=== PATIENT | female | born 1980 | race Caucasian/White ===

== ENCOUNTER 2016-07-29 14:30 | Emergency (ER) | payer MEDICAID, OTHER ==
[2016-07-29] MEDS ORDERED: HYDROmorphone 1 MG/ML SYRINGE IM STA (16:24)
[2016-07-29] MEDS ORDERED: FLUCONAZOLE 100 MG TABLET PO STA (16:25)
[2016-07-29] MEDS ORDERED: KETOROLAC 30 MG/ML VIAL IM STA (16:25)
[2016-07-29] MEDS ORDERED: INSULIN REGULAR HUMAN 100 UNIT/1 ML 10 ML MDV SUBQ STA (16:25)
[2016-07-29] MEDS ORDERED: HYDROmorphone 1 MG/ML SYRINGE ONE (16:30)
[2016-07-29] MEDS ORDERED: KETOROLAC 30 MG/ML VIAL ONE (16:30)
[2016-07-29] MEDS ORDERED: INSULIN REGULAR HUMAN 100 UNIT/1 ML 10 ML MDV ONE (16:31)
[2016-07-29] MEDS ORDERED: FLUCONAZOLE 100 MG TABLET PO ONE (16:31)
== END 2016-07-29 17:46 | disposition home or self-care (01) ==
DX: B37.3 Candidiasis of vulva and vagina (principal); E10.65 Type 1 diabetes mellitus with hyperglycemia; Z79.4 Long term (current) use of insulin; M54.5 Low back pain; I10 Essential (primary) hypertension; E03.9 Hypothyroidism, unspecified
CPT/HCPCS: 36415; 51701; 51798; 80053; 81001; 83690; 85025; 96372; 99283; 99284; A9270; J1815

== ENCOUNTER 2016-08-13 | Outpatient (CLI) | payer MEDICAID | END 2016-08-13 23:15 | disposition critical access hospital (66) | CPT/HCPCS: A0425; A0427 ==

== ENCOUNTER 2016-08-13 12:23 | Emergency (ER) | payer MEDICAID ==
[2016-08-13] MEDS ORDERED: INSULIN REGULAR HUMAN 100 UNIT/1 ML 10 ML MDV IVP STA (13:02)
[2016-08-13] MEDS ORDERED: SODIUM CHLORIDE 0.9% 1,000 ML IV ONE (13:02)
[2016-08-13] MEDS ORDERED: ACETAMINOPHEN 1,000 MG/100 ML 100 ML IV STA (13:02)
[2016-08-13] MEDS ORDERED: ACETAMINOPHEN 1,000 MG/100 ML 100 ML IV ONE (13:10)
[2016-08-13] MEDS ORDERED: INSULIN REGULAR HUMAN 100 UNIT/1 ML 10 ML MDV ONE (13:10)
[2016-08-13] MEDS ORDERED: KETOROLAC 60 MG/2 ML VIAL IVP STA (15:01)
[2016-08-13] MEDS ORDERED: KETOROLAC 30 MG/ML VIAL ONE (15:02)
== END 2016-08-13 15:30 | disposition home or self-care (01) ==
DX: E10.65 Type 1 diabetes mellitus with hyperglycemia (principal); Z79.4 Long term (current) use of insulin; R07.89 Other chest pain; R00.0 Tachycardia, unspecified; I10 Essential (primary) hypertension; E03.9 Hypothyroidism, unspecified; K21.9 Gastro-esophageal reflux disease without esophagitis

== ENCOUNTER 2016-08-13 23:25 | Emergency (ER) | payer MEDICAID ==
[2016-08-14] MEDS ORDERED: HYDROmorphone 1 MG/ML SYRINGE IVP STA (00:20)
[2016-08-14] MEDS ORDERED: ONDANSETRON 4 MG/2 ML VIAL IVP STA (00:20)
[2016-08-14] MEDS ORDERED: SODIUM CHLORIDE 0.9% 1,000 ML IV ONE (00:20)
[2016-08-14] MEDS ORDERED: METOPROLOL 5 MG/5 ML VIAL IVP STA ×2 (00:21→01:28)
[2016-08-14] MEDS ORDERED: INSULIN REGULAR HUMAN 100 UNIT/1 ML 10 ML MDV IVP STA (00:22)
[2016-08-14] MEDS ORDERED: METOPROLOL 5 MG/5 ML VIAL IVP ONE ×2 (00:35→01:31)
[2016-08-14] MEDS ORDERED: ONDANSETRON 4 MG/2 ML VIAL ONE (00:35)
[2016-08-14] MEDS ORDERED: HYDROmorphone 1 MG/ML SYRINGE ONE (00:35)
[2016-08-14] MEDS ORDERED: INSULIN REGULAR HUMAN 100 UNIT/1 ML 10 ML MDV ONE (00:36)
== END 2016-08-14 02:35 | disposition home or self-care (01) ==
DX: I47.1 Supraventricular tachycardia (principal); R07.89 Other chest pain; E10.65 Type 1 diabetes mellitus with hyperglycemia; Z79.4 Long term (current) use of insulin; R06.02 Shortness of breath; I10 Essential (primary) hypertension; E03.9 Hypothyroidism, unspecified; K21.9 Gastro-esophageal reflux disease without esophagitis
CPT/HCPCS: 36415; 71010; 80053; 82009; 82550; 82553; 82803; 83690; 84484; 85025; 85379; 93005; 93010; 96361; 96374; 96375; 99284; 99285; J0131; J1170; J1815

== ENCOUNTER 2016-08-27 18:53 | Emergency (ER) | payer MEDICAID ==
[2016-08-27] MEDS ORDERED: SODIUM CHLORIDE 0.9% 1,000 ML IV ONE ×2 (19:21→21:18)
[2016-08-27] MEDS ORDERED: ONDANSETRON 4 MG/2 ML VIAL IVP STA (19:45)
[2016-08-27] MEDS ORDERED: ACETAMINOPHEN 325 MG TABLET PO STA (19:45)
[2016-08-27] MEDS ORDERED: ACETAMINOPHEN 325 MG TABLET PO ONE (19:51)
[2016-08-27] MEDS ORDERED: ONDANSETRON 4 MG/2 ML VIAL ONE (19:51)
[2016-08-27] MEDS ORDERED: INSULIN REGULAR HUMAN 100 UNIT/1 ML 10 ML MDV IVP STA ×2 (20:25→21:18)
[2016-08-27] MEDS ORDERED: INSULIN REGULAR HUMAN 100 UNIT/1 ML 10 ML MDV ONE ×2 (20:37→21:23)
== END 2016-08-27 22:24 | disposition home or self-care (01) ==
DX: R00.0 Tachycardia, unspecified (principal); Z95.0 Presence of cardiac pacemaker; E10.65 Type 1 diabetes mellitus with hyperglycemia; Z79.4 Long term (current) use of insulin; I10 Essential (primary) hypertension; E03.9 Hypothyroidism, unspecified
CPT/HCPCS: 36415; 71010; 80053; 83690; 83735; 85025; 93005; 93010; 96361; 96374; 99283; 99285; A9270; J1815

== ENCOUNTER 2016-09-03 12:20 | Emergency (ER) | payer MEDICAID ==
[2016-09-03] MEDS ORDERED: ONDANSETRON ODT 4 MG TABLET TL STA (14:49)
[2016-09-03] MEDS ORDERED: HYDROmorphone 1 MG/ML SYRINGE IM STA (14:49)
[2016-09-03] MEDS ORDERED: ONDANSETRON ODT 4 MG TABLET ONE (14:52)
[2016-09-03] MEDS ORDERED: HYDROmorphone 1 MG/ML SYRINGE ONE (14:52)
[2016-09-03] MEDS ORDERED: CEPHALEXIN 250 MG CAPSULE PO STA (16:09)
[2016-09-03] MEDS ORDERED: FLUCONAZOLE 100 MG TABLET PO STA (16:09)
[2016-09-03] MEDS ORDERED: CEPHALEXIN 250 MG CAPSULE PO ONE (16:11)
[2016-09-03] MEDS ORDERED: FLUCONAZOLE 100 MG TABLET ONE (16:12)
[2016-09-03] MEDS ORDERED: MUPIROCIN 2% CREAM 30 GM TUBE TOP STA (16:15)
== END 2016-09-03 16:22 | disposition home or self-care (01) ==
DX: J40 Bronchitis, not specified as acute or chronic (principal); B37.3 Candidiasis of vulva and vagina; E10.65 Type 1 diabetes mellitus with hyperglycemia; Z79.4 Long term (current) use of insulin; I10 Essential (primary) hypertension
CPT/HCPCS: 71020; 81001; 81025; 96372; 99283; 99284; A9270; J1170; Q0162

== ENCOUNTER 2016-09-21 10:00 | Emergency (ER) | payer MEDICAID ==
--- NOTE | 2016-09-21 10:41 | ED Physician Documentation ---
History of Present Illness - Stated complaint Stated Complaint: ELEVATED BS,RT SIDE BACK PX - Chief complaint Chief Complaint: General - History obtained from History obtained from: Patient - History of Present Illness Timing: Yesterday Pain level max: 8 Pain level now: 8 Improved by: nothing Worsened by: movement - Additonal information Additional information: Patient is a 36-year-old female with a history of diabetes and cardiac issues. She does have an implanted pacemaker. States she felt fluttering at her pacemaker site this morning. Did not feel heart palpitations, rather this was a muscular type twitching/fluttering. She is also complained of bilateral calf pain since yesterday, feels like cramping as well. Also states that she has right low back pain. No abdominal pain. No fevers. States that she is approximately 11 days late for her menses. States that she is not , has not been sexually active for the past month. Denies any vaginal bleeding or discharge. Also states that her blood sugars have been high over the past 2 days. Review of Systems Ten Systems: 10 systems reviewed and negative Constitutional: denies: Fever, Chills Ears: denies: Ear pain Nose: denies: Rhinorrhea / runny nose, Congestion Throat: denies: Sore throat Cardiac: denies: Chest pain / pressure Respiratory: denies: Cough, Wheezing GI: denies: Nausea, Vomiting, Diarrhea : reports: Dysuria, Frequency, Hesitancy. 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, Fibroids, Other : None HEENT: None Psych: Depression, Anxiety, Bipolar disorder, Panic attacks, Post traumatic stress disorder, Claustrophobia Musculoskeletal: Gout, Chronic back pain Derm: None - Past Surgical History Past Surgical History: Yes General: Cholecystectomy, Appendectomy, Hiatal hernia repair, Colonoscopy, EGD /SOLAR PANEL INSTALLATION SUPERVISOR: Oophrectomy, Other Cardiovascular: Other HEENT: Myringotomy (tubes), Tonsil/Adenoidectomy, Other - Present Medications Home Medications: Ambulatory Orders Medication Instructions Recorded Confirmed Atorvastatin Calcium [Lipitor] 80 mg PO HS 05/24/13 09/21/16 Insulin Aspart [NovoLOG] 1 - 10 unit SUBQ TIDWM 05/24/13 09/21/16 Insulin Glargine,Hum.rec.anlog 40 unit SQ QAM 05/24/13 09/21/16 [Lantus] Levothyroxine Sodium [Synthroid] 250 mcg PO DAILY 05/24/13 09/21/16 Lorazepam [Ativan] 1 mg PO QPM 08/29/13 09/21/16 Insulin Glargine,Hum.rec.anlog 0 units SUBCUT HS 09/05/13 09/21/16 [Lantus Solostar] Amitriptyline [Elavil] 25 mg PO QPM 07/03/14 09/21/16 Pantoprazole [Protonix] 40 mg PO BIDAC 01/17/15 09/21/16 Venlafaxine ER [Effexor ER] 150 mg PO DAILY 08/27/15 09/21/16 Cyclobenzaprine [Flexeril] 10 mg PO TID PRN #15 tablet 12/01/15 09/21/16 Lisinopril 20 mg PO DAILY 09/03/16 09/21/16 Metoprolol Tartrate 50 mg PO BID 09/03/16 09/21/16 Mupirocin 1 applic TP TID #15 oint...g. 09/03/16 09/21/16 Ondansetron Odt [Zofran] 4 mg TL Q6H PRN #15 tablet 09/03/16 09/21/16 Ciprofloxacin HCl [Cipro] 500 mg PO BID #28 tablet 09/21/16 Hydrocodone/Acetaminophen 1 - 2 each PO Q6H PRN #20 tablet 09/21/16 [Hydrocodon-Acetaminophen 5-325] Ondansetron Odt [Zofran] 4 mg TL Q6H PRN #10 tablet 09/21/16 - Allergies Allergies/Adverse Reactions: Allergies Allergy/AdvReac Type Severity Reaction Status Date / Time sulfamethoxazole Allergy Intermediate rash/ Verified 09/21/16 10:09 [From Bactrim] adhesive Allergy Rash Verified 09/21/16 10:09 amoxicillin [Amoxicillin] Allergy unknown Verified 09/21/16 10:09 oxycodone [Oxycodone] AdvReac Intermediate hallucinate, Verified 09/21/16 10:09 vomit promethazine HCl * AdvReac Mild Nausea Verified 09/21/16 10:09 [From Phenergan] - Social History Does the pt smoke?: No Smoking Status: Never smoker Does the pt drink ETOH?: No Does the pt have substance abuse?: No - Immunizations Immunizations are current?: Yes - POLST Patient has POLST: No PD ED PE NORMAL - Vitals Vital signs reviewed: Yes - General General: Alert and oriented X 3, No acute distress, Well developed/nourished - HEENT HEENT: PERRL, Other (dry lips) - Neck Neck: Supple, no meningeal sign - Cardiac Cardiac: RRR, Strong equal pulses - Respiratory Respiratory: No respiratory distress, Clear bilaterally - Abdomen Abdomen: Normal bowel sounds, Soft, Non tender, Non distended - Back Back: No CVA TTP, No spinal TTP - Derm Derm: Warm and dry - Extremities Extremities: No calf tenderness / cord - Neuro Neuro: Alert and oriented X 3 - Psych Psych: Normal mood, Normal affect Results - Vitals Vitals: Vital Signs - 24 hr 09/21/16 09/21/16 09/21/16 10:06 12:06 12:47 Temperature 36.8 C Heart Rate 116 H 109 H 110 H Respiratory 22 22 Rate Blood Pressure 151/95 H 148/86 H 148/86 H O2 Saturation 100 97 97 09/21/16 14:11 Temperature Heart Rate 105 H Respiratory 16 Rate Blood Pressure 136/74 H O2 Saturation 97 Oxygen O2 Source Room air - EKG (time done) 1022 Rate: Rate (enter#) (113) Rhythm: Paced Computer interpretation: Agree with computer - Labs Labs: Laboratory Tests 09/21/16 09/21/16 09/21/16 12:17 12:17 12:17 WBC 10.6 RBC 3.56 L Hgb 10.4 L Hct 31.0 L MCV 87.1 MCH 29.2 MCHC 33.5 RDW 12.9 Plt Count 348 MPV 7.6 L Neut # 8.6 H Lymph # 1.0 L [place] # 0.8 Eos # 0.1 Baso # 0.1 Absolute Nucleated RBC 0.00 Nucleated RBCs 0.0 VBG pH 7.453 H VBG pCO2 39.8 L VBG pO2 39.7 VBG HCO3 27.2 VBG Total CO2 28.5 VBG O2 Saturation 80.3 H VBG Base Excess 3.1 H Sodium 135 Potassium 4.5 Chloride 98 L Carbon Dioxide 26 Anion Gap 11.0 BUN 10 Creatinine 0.5 Estimated GFR (MDRD) 138 Glucose 298 H Calcium 8.5 Phosphorus 2.6 Magnesium 1.8 Total Bilirubin 0.3 AST 11 ALT < 10 L Alkaline Phosphatase 130 H Total Protein 7.3 Albumin 2.4 L Globulin 4.9 H Albumin/Globulin Ratio 0.5 L Lipase 13 L Urine Color Urine Clarity Urine pH Ur Specific [place] Urine Protein Urine Glucose (UA) Urine Ketones Urine Occult Blood Urine Nitrite Urine Bilirubin Urine Urobilinogen Ur Leukocyte Esterase Urine RBC Urine WBC Ur Epithelial Cells Ur Squamous Epith Cells Urine Bacteria Urine Mucus Ur Microscopic Review Urine Culture Comments Urine HCG, Qual Serum Ketones NEGATIVE 09/21/16 13:30 WBC RBC Hgb Hct MCV MCH MCHC RDW Plt Count MPV Neut # Lymph # [place] # Eos # Baso # Absolute Nucleated RBC Nucleated RBCs VBG pH VBG pCO2 VBG pO2 VBG HCO3 VBG Total CO2 VBG O2 Saturation VBG Base Excess Sodium Potassium Chloride Carbon Dioxide Anion Gap BUN Creatinine Estimated GFR (MDRD) Glucose Calcium Phosphorus Magnesium Total Bilirubin AST ALT Alkaline Phosphatase Total Protein Albumin Globulin Albumin/Globulin Ratio Lipase Urine Color YELLOW Urine Clarity CLEAR Urine pH 7.5 Ur Specific [place] 1.025 Urine Protein 100 H Urine Glucose (UA) >=1000 H Urine Ketones NEGATIVE Urine Occult Blood SMALL H Urine Nitrite NEGATIVE Urine Bilirubin NEGATIVE Urine Urobilinogen 1 (NORMAL) Ur Leukocyte Esterase NEGATIVE Urine RBC 11-25 H Urine WBC 11-25 H Ur Epithelial Cells See Comments Below Ur Squamous Epith Cells MANY Squamous H Urine Bacteria Rare Urine Mucus Few Strands Ur Microscopic Review INDICATED Urine Culture Comments NOT INDICATED Urine HCG, Qual NEGATIVE Serum Ketones - Rads (name of study) Ct abd/pelvis Radiology: Prelim report reviewed, EMP read contemporaneously, See rad report ( Abnormal appearance of the right kidney with inflammatory changes in and around the lower pole. There is a possibility this could represent infection. Hemorrhage would be another possibility. No calculi or hydronephrosis. ) PD MEDICAL DECISION MAKING - ED course Complexity details: reviewed old records, reviewed results, re-evaluated patient , considered differential, d/w patient ED course: Patient presents to the emergency department with multiple complaints, worse is the right flank pain. CT scan reveals inflammatory changes and and around the lower pole of the right kidney. She appears to have a UTI as well. We will treat for pyelonephritis. Do not feel clinically that this represents hemorrhage. There is no history of trauma. No history of tumors that she is aware of. We will place her on Rocephin here and ciprofloxacin for home. Pain is well controlled. She is well-appearing, nontoxic. Afebrile. She will continue her insulin use at home. She will return if she worsens. Tolerating p.o. without difficulty. Not vomiting. Patient counseled regarding signs and symptoms for which I believe and urgent re-evaluation would be necessary. Patient with good understanding of and agreement to plan and is comfortable going home at this time This document was made in part using voice recognition software. While efforts are made to proofread this document, sound alike and grammatical errors may occur. Departure - Departure Disposition: 01 Home, Self Care Clinical Impression: Pyelonephritis Condition: Good Instructions: ED Kidney Infec Female Follow-Up: Amisha Staton DO [Primary Care Provider] - Within 1 week Prescriptions: Ciprofloxacin HCl [Cipro] 500 mg PO BID #28 tablet Hydrocodone/Acetaminophen [Hydrocodon-Acetaminophen 5-325] 1 - 2 each PO Q6H PRN #20 tablet PRN Reason: pain Ondansetron Odt [Zofran] 4 mg TL Q6H PRN #10 tablet PRN Reason: Nausea / Vomiting Comments: Take all antibiotics until gone. Return if you worsen. Do not drink alcohol or drive while on narcotic pain medicine. Note that many narcotic pain relievers also contain tylenol/acetaminophen. Please ensure that your total dose of acetaminophen from all sources does not exceed 3 grams (3000mg) per day. You may constipated on this medication, take a stool softener such as "Colace" twice a day while you are on it. Also recommend a [id number] laxative such as senna or MiraLAX any day that you do not have a bowel movement. If you received narcotic pain medication in the emergency department, do not drive or operate machinery for the next 24 hours. Discharge Date/Time: 09/21/16 14:45
[2016-09-21] MEDS: SODIUM CHLORIDE 0.9% 1,000 ML IV ONE ×2 (11:04→12:53)
[2016-09-21] MEDS ORDERED: HYDROcod/ACETAM 5/325 MG TABLET ONE (12:12)
[2016-09-21 12:23] LABS: BASOPHILS # (AUTO) 0.1 10^3/uL (0.0-0.1); BASOPHILS % (AUTO) 1.1 %; EOSINOPHILS # (AUTO) 0.1 10^3/uL (0.0-0.7); HGB - HEMOGLOBIN 10.4 g/dL (12.0-16.0); LYMPHOCYTES % (AUTO) 9.7 %; MEAN CORPUSCULAR HEMOGLOBIN 29.2 pg (27.0-31.0); MEAN CORPUSCULAR HGB CONC 33.5 g/dL (32.0-36.0); MEAN CORPUSCULAR VOLUME 87.1 fL (81.0-99.0); MEAN PLATELET VOLUME 7.6 fL (7.9-10.8); MONOCYTES # (AUTO) 0.8 10^3/uL (0.0-1.0); MONOCYTES % (AUTO) 7.1 %; NEUTROPHILS # (AUTO) 8.6 10^3/uL (1.5-6.6); NEUTROPHILS % (AUTO) 81.1 %; RED BLOOD COUNT 3.56 10^6/uL (4.20-5.40); RED CELL DISTRIBUTION WIDTH 12.9 % (12.0-15.0); UNCORRECTED WHITE BLOOD COUNT 10.6 x10^3/uL; VBG PH 7.453 (7.31-7.41); WHITE BLOOD COUNT 10.6 x10^3/uL (4.8-10.8)
[2016-09-21 12:24] LABS: VBG BASE EXCESS 3.1 mmol/L (-2 - +2); VBG OXYGEN SATURATION 80.3 % (60-80); VBG TOTAL CO2 28.5 mmol/L (24-29)
[2016-09-21] MEDS ORDERED: HYDROmorphone 1 MG/ML SYRINGE ONE (12:26)
[2016-09-21] MEDS: HYDROmorphone 1 MG/ML SYRINGE IVP STA (12:30)
[2016-09-21] MEDS: HYDROcod/ACETAM 5/325 MG TABLET PO STA (12:31)
[2016-09-21 12:35] LABS: ALBUMIN/GLOBULIN RATIO 0.5 (1.0-2.2); BILIRUBIN,TOTAL 0.3 mg/dL (0.2-1.0); BUN - BLOOD UREA NITROGEN 10 mg/dL (6-20); CALCIUM 8.5 mg/dL (8.5-10.3); CARBON DIOXIDE - CO2 26 mmol/L (21-32); CHLORIDE 98 mmol/L (101-111); CREATININE 0.5 mg/dL (0.4-1.0); GFR - MDRD 138 (>89); GLUCOSE 298 mg/dL (70-100); LIPASE 13 U/L (22-51); MAGNESIUM 1.8 mg/dL (1.7-2.8); PHOSPHORUS 2.6 mg/dL (2.5-4.6); POTASSIUM 4.5 mmol/L (3.5-5.0); SODIUM 135 mmol/L (135-145); TOTAL PROTEIN 7.3 g/dL (6.7-8.2)
[2016-09-21 13:40] LABS: BILIRUBIN,URINE NEGATIVE (NEGATIVE); PH,URINE 7.5 PH (5.0-7.5)
[2016-09-21 13:42] LABS: HCG UR QUAL NEGATIVE; UA w/ MICROSCOPIC CHARGE YES
[2016-09-21 13:59] LABS: UR CULTURE IF IND NOT INDICATED
[2016-09-21] MEDS ORDERED: cefTRIAXone 1 GM VIAL ONE (14:01)
--- NOTE | 2016-09-21 14:07 | CT Preliminary Report ---
Exam: CT Abdomen/Pelvis W/O IMPRESSION: 1. Abnormal appearance of the right kidney with inflammatory changes in and around the lower pole. Th ere is a possibility this could represent infection. Hemorrhage would be another possibility. 2. No calculi or hydronephrosis. [facility] SITE ID: [id number]
--- NOTE | 2016-09-21 14:10 | CT Report ---
EXAM: CT ABDOMEN AND PELVIS (CT KUB) EXAM DATE: 09/21/2016 01:35 PM. CLINICAL HISTORY: R flank pain. COMPARISONS: 07/01/2016. TECHNIQUE: Routine axial helical CT imaging was performed through the abdomen and pelvis without IV c ontrast. Reconstructions: Coronal and sagittal. In accordance with CT protocol optimization, one or more of the following dose reduction techniques w ere utilized for this exam: automated exposure control, adjustment of mA and/or KV based on patient s ize, or use of iterative reconstructive technique. FINDINGS: Lung Bases: Grossly clear lung bases. Distal tips of cardiac generator device leads are noted in the heart. Right Kidney/Ureter: No calculi or hydronephrosis. There is perinephric stranding mostly around the l ower pole of the right kidney with thickening of the anterior and lateral perirenal fascia. The lower pole cortex is poorly defined and there is a relatively focal ovoid low density lesion on series 6 i mage 92 measuring approximately 1.4 x 2.5 cm. Left Kidney/Ureter: No stones, hydronephrosis, or hydroureter. No perinephric fat stranding. Other Solid Organs: Noncontrast images of the solid organs are grossly unremarkable. Gallbladder/Bile Ducts: The gallbladder is surgically absent. Peritoneal Cavity: No free fluid, free air or nicanor adenopathy. Bowel is grossly unremarkable. Pelvic Organs: No bladder stones or wall thickening. Noncontrast images of the visualized pelvic orga ns are unremarkable. Vasculature: Unremarkable. Other: No acute skeletal abnormalities are appreciated. IMPRESSION: 1. Abnormal appearance of the right kidney with inflammatory changes in and around the lower pole. Th ere is a possibility this could represent infection. Hemorrhage would be another possibility. 2. No calculi or hydronephrosis. [facility] Referring Provider Line: [phone] SITE ID: [id number]
[2016-09-21 14:11] VITALS: BP 136/74
[2016-09-21] MEDS: cefTRIAXone 1 GM in SODIUM CHLORIDE 0.9% MINIBAG 100 ML IV STA (14:11)
== END 2016-09-21 14:45 | disposition home or self-care (01) ==
LOC: ED 10:00
DX: N12 Tubulo-interstitial nephritis, not specified as acute or chronic (principal); I49.8 Other specified cardiac arrhythmias; E10.9 Type 1 diabetes mellitus without complications; Z79.4 Long term (current) use of insulin; Z95.0 Presence of cardiac pacemaker; I10 Essential (primary) hypertension; E03.9 Hypothyroidism, unspecified; K21.9 Gastro-esophageal reflux disease without esophagitis; M10.9 Gout, unspecified; D25.9 Leiomyoma of uterus, unspecified
CPT/HCPCS: 36415; 74176; 80053; 81001; 81003; 81025; 82009; 82803; 83690; 83735; 84100; 85025; 87086; 93005; 96374; 96375; 99283; 99284

== ENCOUNTER 2016-09-28 20:59 | Emergency (ER) | payer MEDICAID ==
[2016-09-28] MEDS ORDERED: SODIUM CHLORIDE 0.9% 1,000 ML IV ONE ×2 (21:16→23:25)
[2016-09-28] MEDS ORDERED: MORPHINE 2 MG/ML SYRINGE IVP STA (21:16)
[2016-09-28] MEDS ORDERED: ONDANSETRON 4 MG/2 ML VIAL IVP STA (21:16)
[2016-09-28] MEDS ORDERED: MORPHINE 2 MG/ML SYRINGE ONE (21:44)
[2016-09-28] MEDS ORDERED: ONDANSETRON 4 MG/2 ML VIAL ONE (21:44)
[2016-09-29] MEDS ORDERED: SODIUM CHLORIDE 0.9% 1,000 ML IV ONE (00:06)
[2016-09-29] MEDS ORDERED: MORPHINE 2 MG/ML SYRINGE IVP STA (00:11)
[2016-09-29] MEDS ORDERED: MORPHINE 10 MG/ML VIAL ONE (00:15)
== END 2016-09-29 02:23 | disposition home or self-care (01) ==
DX: R10.9 Unspecified abdominal pain (principal); R11.2 Nausea with vomiting, unspecified; E86.0 Dehydration; Z95.0 Presence of cardiac pacemaker; E10.9 Type 1 diabetes mellitus without complications; Z79.4 Long term (current) use of insulin; I10 Essential (primary) hypertension; E03.9 Hypothyroidism, unspecified; K21.9 Gastro-esophageal reflux disease without esophagitis

== ENCOUNTER 2016-09-30 15:15 | Outpatient (CLI) | payer MEDICAID | END 2016-09-30 15:16 | disposition home or self-care (01) | DX: E10.65 Type 1 diabetes mellitus with hyperglycemia (principal); R11.0 Nausea ==

== ENCOUNTER 2016-10-01 14:51 | Inpatient (IN) | payer MEDICAID ==
[2016-10-01] MEDS ORDERED: SODIUM CHLORIDE 0.9% 1,000 ML IV ONE (15:19)
[2016-10-01] MEDS ORDERED: ACETAMINOPHEN 1,000 MG/100 ML 100 ML IV STA (15:19)
[2016-10-01] MEDS ORDERED: ONDANSETRON 4 MG/2 ML VIAL IVP STA ×2 (15:19→15:58)
[2016-10-01] MEDS ORDERED: ACETAMINOPHEN 1,000 MG/100 ML 100 ML IV ONE (15:36)
[2016-10-01] MEDS ORDERED: ONDANSETRON 4 MG/2 ML VIAL ONE ×2 (15:36→16:24)
[2016-10-01] MEDS ORDERED: MORPHINE 2 MG/ML SYRINGE IVP STA (15:58)
[2016-10-01] MEDS ORDERED: ELECTROLYTE-A SOLUTION 1,000 ML IV SCH (16:00)
[2016-10-01] MEDS ORDERED: PANTOPRAZOLE 40 MG VIAL IVP STA (16:00)
[2016-10-01] MEDS ORDERED: ONDANSETRON ODT 4 MG TABLET TL PRN (16:04)
[2016-10-01] MEDS ORDERED: ACETAMINOPHEN 325 MG TABLET PO PRN (16:04)
[2016-10-01] MEDS ORDERED: CYCLOBENZAPRINE 10 MG TABLET PO PRN (16:15)
[2016-10-01] MEDS ORDERED: MORPHINE 2 MG/ML SYRINGE ONE (16:24)
[2016-10-01] MEDS: INSULIN REGULAR HUMAN 100 UNIT in SODIUM CHLORIDE 0.9% 100ML 99 ML IV SCH (16:28)
[2016-10-01] MEDS ORDERED: PANTOPRAZOLE 40 MG VIAL ONE (16:41)
[2016-10-01] MEDS: SODIUM CHLORIDE 0.9% 1,000 ML IV SCH (17:24)
[2016-10-01] MEDS ORDERED: diltiaZEM INJ 5 MG/ML VIAL IVP SCH (18:05)
[2016-10-01] MEDS ORDERED: diltiaZEM INJ 125 MG in DEXTROSE 5% 100 ML IV ONE (18:05)
[2016-10-01] MEDS: AMITRIPTYLINE 25 MG TABLET PO SCH ×2 (21:11→22:35)
[2016-10-01] MEDS: LORazepam 0.5 MG TABLET PO SCH (21:12)
[2016-10-01] MEDS: ATORVASTATIN 40 MG TABLET PO SCH (21:12)
[2016-10-01] MEDS: METOPROLOL TARTRATE 50 MG TABLET PO SCH (21:13)
[2016-10-01] MEDS: ONDANSETRON 4 MG/2 ML VIAL IVP PRN (22:11)
[2016-10-01] MEDS: HYDROcod/ACETAM 5/325 MG TABLET PO PRN (22:35)
[2016-10-01] MEDS ORDERED: SODIUM CHLORIDE 0.9% 1,000 ML IV SCH (23:00)
[2016-10-02] MEDS: SODIUM CHLORIDE FLUSH 0.9% 10 ML SYRINGE IVP SCH ×4 (00:15→22:35)
[2016-10-02] MEDS: SODIUM CHLORIDE 0.9% 1,000 ML IV SCH (00:16)
[2016-10-02] MEDS: DEXTROSE 5%-0.45% NACL 1,000 ML IV SCH ×3 (01:10→17:22)
[2016-10-02] MEDS: SODIUM CHLORIDE FLUSH 0.9% 10 ML SYRINGE IVP PRN ×2 (04:14→06:41)
[2016-10-02] MEDS ORDERED: GLUCAGON 1 MG/ML VIAL SUBQ PRN ×2 (04:33→13:06)
[2016-10-02] MEDS ORDERED: DEXTROSE GEL 37.5 GM TUBE PO PRN ×2 (04:33→13:06)
[2016-10-02] MEDS ORDERED: DEXTROSE 5% 1,000 ML IV PRN ×2 (04:33→13:06)
[2016-10-02] MEDS ORDERED: DEXTROSE 50% ABBOJECT 25 GM/50 ML SYRINGE IVP PRN ×2 (04:33→13:06)
[2016-10-02] MEDS ORDERED: INSULIN REGULAR HUMAN 100 UNIT in SODIUM CHLORIDE 0.9% 100ML 99 ML IV SCH (04:34)
[2016-10-02] MEDS ORDERED: INSULIN GLARGINE HUM REC ANLOG 40 UNIT SQ SCH (04:35)
[2016-10-02] MEDS: INSULIN GLARGINE 300 UNIT/3 ML PEN SUBQ SCH ×2 (04:59→08:18)
[2016-10-02] MEDS: INSULIN REGULAR HUMAN 100 UNIT in SODIUM CHLORIDE 0.9% 100ML 99 ML IV SCH (05:05)
[2016-10-02] MEDS: HYDROcod/ACETAM 5/325 MG TABLET PO PRN ×4 (05:07→22:33)
[2016-10-02] MEDS: LEVOTHYROXINE 125 MCG TABLET PO SCH (06:39)
[2016-10-02] MEDS ORDERED: POTASSIUM CHLORIDE 20 MEQ TABLET PO ONE (06:58)
[2016-10-02] MEDS ORDERED: PANTOPRAZOLE 40 MG VIAL IVP SCH (07:00)
[2016-10-02] MEDS: INSULIN ASPART 300 UNIT/3 ML PEN SUBQ SCH ×4 (08:15→22:45)
[2016-10-02] MEDS: VENLAFAXINE ER 75 MG CAPSULE PO SCH (08:15)
[2016-10-02] MEDS: METOPROLOL TARTRATE 50 MG TABLET PO SCH ×2 (08:15→22:35)
[2016-10-02] MEDS: ONDANSETRON 4 MG/2 ML VIAL IVP PRN (12:35)
[2016-10-02] MEDS ORDERED: INSULIN GLARGINE 300 UNIT/3 ML PEN SUBQ SCH (21:00)
[2016-10-02] MEDS: ATORVASTATIN 40 MG TABLET PO SCH (22:34)
[2016-10-02] MEDS: LORazepam 0.5 MG TABLET PO SCH (22:34)
[2016-10-02] MEDS: NS W/20 MEQ KCL 1,000 ML IV SCH (22:35)
[2016-10-03] MEDS: SODIUM CHLORIDE FLUSH 0.9% 10 ML SYRINGE IVP SCH ×3 (01:16→21:33)
[2016-10-03] MEDS: HYDROcod/ACETAM 5/325 MG TABLET PO PRN ×6 (02:45→23:59)
[2016-10-03] MEDS: LEVOTHYROXINE 125 MCG TABLET PO SCH (06:07)
[2016-10-03] MEDS: PANTOPRAZOLE 40 MG TABLET PO SCH (06:07)
[2016-10-03] MEDS: INSULIN GLARGINE 300 UNIT/3 ML PEN SUBQ SCH (08:07)
[2016-10-03] MEDS: INSULIN ASPART 300 UNIT/3 ML PEN SUBQ SCH ×6 (08:09→21:31)
[2016-10-03] MEDS: METOPROLOL TARTRATE 50 MG TABLET PO SCH ×2 (08:10→21:31)
[2016-10-03] MEDS: VENLAFAXINE ER 75 MG CAPSULE PO SCH (08:10)
[2016-10-03] MEDS ORDERED: DEXTROSE 50% ABBOJECT 25 GM/50 ML SYRINGE IVP PRN (10:48)
[2016-10-03] MEDS ORDERED: DEXTROSE GEL 37.5 GM TUBE PO PRN (10:48)
[2016-10-03] MEDS ORDERED: GLUCAGON 1 MG/ML VIAL SUBQ PRN (10:48)
[2016-10-03] MEDS ORDERED: DEXTROSE 5% 1,000 ML IV PRN (10:48)
[2016-10-03] MEDS: NS W/20 MEQ KCL 1,000 ML IV SCH (11:12)
[2016-10-03] MEDS ORDERED: INSULIN GLARGINE 300 UNIT/3 ML PEN SUBQ SCH (21:23)
[2016-10-03] MEDS: ATORVASTATIN 40 MG TABLET PO SCH (21:30)
[2016-10-03] MEDS: AMITRIPTYLINE 25 MG TABLET PO SCH (21:30)
[2016-10-03] MEDS: LORazepam 0.5 MG TABLET PO SCH (21:31)
[2016-10-04] MEDS: NS W/20 MEQ KCL 1,000 ML IV SCH
[2016-10-04] MEDS: SODIUM CHLORIDE FLUSH 0.9% 10 ML SYRINGE IVP SCH (06:09)
[2016-10-04] MEDS: PANTOPRAZOLE 40 MG TABLET PO SCH (06:20)
[2016-10-04] MEDS: LEVOTHYROXINE 125 MCG TABLET PO SCH (06:20)
[2016-10-04] MEDS: HYDROcod/ACETAM 5/325 MG TABLET PO PRN ×2 (06:21→10:29)
[2016-10-04] MEDS: VENLAFAXINE ER 75 MG CAPSULE PO SCH (08:31)
[2016-10-04] MEDS: METOPROLOL TARTRATE 50 MG TABLET PO SCH (08:31)
[2016-10-04] MEDS: INSULIN ASPART 300 UNIT/3 ML PEN SUBQ SCH ×4 (08:32→12:05)
[2016-10-04] MEDS: INSULIN GLARGINE 300 UNIT/3 ML PEN SUBQ SCH (08:32)
[2016-10-04] MEDS ORDERED: POTASSIUM CHLORIDE 20 MEQ TABLET PO SCH (09:00)
== END 2016-10-04 13:23 | disposition home or self-care (01) | DRG 638 ==
PROC: 02HV33Z Insertion of Infusion Device into Superior Vena Cava, Percutaneous Approach (ICD-10-PCS; principal; 2016-10-01)
DX: E10.10 Type 1 diabetes mellitus with ketoacidosis without coma (principal); K92.0 Hematemesis; E87.1 Hypo-osmolality and hyponatremia; E86.0 Dehydration; G89.4 Chronic pain syndrome; E87.6 Hypokalemia; R11.2 Nausea with vomiting, unspecified; R30.0 Dysuria; R39.15 Urgency of urination; E10.42 Type 1 diabetes mellitus with diabetic polyneuropathy; E10.319 Type 1 diabetes mellitus with unspecified diabetic retinopathy without macular edema; E10.43 Type 1 diabetes mellitus with diabetic autonomic (poly)neuropathy; K31.84 Gastroparesis; Z79.4 Long term (current) use of insulin; T38.3X6A Underdosing of insulin and oral hypoglycemic [antidiabetic] drugs, initial encounter; Z91.138 Patient's unintentional underdosing of medication regimen for other reason; Z91.19 Patient's noncompliance with other medical treatment and regimen; R00.0 Tachycardia, unspecified; Z95.0 Presence of cardiac pacemaker; F32.9 Major depressive disorder, single episode, unspecified; F43.10 Post-traumatic stress disorder, unspecified; F41.0 Panic disorder [episodic paroxysmal anxiety]; F40.240 Claustrophobia; E89.0 Postprocedural hypothyroidism; R10.2 Pelvic and perineal pain; M54.2 Cervicalgia; M54.9 Dorsalgia, unspecified; E78.5 Hyperlipidemia, unspecified; Z76.5 Malingerer [conscious simulation]; D25.9 Leiomyoma of uterus, unspecified; K21.9 Gastro-esophageal reflux disease without esophagitis; K44.9 Diaphragmatic hernia without obstruction or gangrene; Z90.49 Acquired absence of other specified parts of digestive tract; Z79.899 Other long term (current) drug therapy

== ENCOUNTER 2016-11-07 13:30 | Outpatient (CLI) | payer MEDICAID | END 2016-11-07 13:31 | disposition home or self-care (01) | DX: B95.61 Methicillin susceptible Staphylococcus aureus infection as the cause of diseases classified elsewhere (principal); R78.81 Bacteremia ==

== ENCOUNTER 2016-11-18 03:22 | Outpatient (CLI) | payer MEDICAID | END 2016-11-18 03:23 | disposition short-term general hospital (02) | DX: R07.9 Chest pain, unspecified (principal); R06.02 Shortness of breath | CPT/HCPCS: A0425; A0427 ==

== ENCOUNTER 2017-03-19 08:00 | Outpatient (CLI) | payer MEDICAID ==
[2017-03-19 10:34] LABS: BASOPHILS # (AUTO) 0.1 10^3/uL (0.0-0.1); BASOPHILS % (AUTO) 0.9 %; EOSINOPHILS # (AUTO) 0.3 10^3/uL (0.0-0.7); EOSINOPHILS % (AUTO) 3.5 %; HCT - HEMATOCRIT 25.5 % (37.0-47.0); HGB - HEMOGLOBIN 8.5 g/dL (12.0-16.0); LYMPHOCYTES # (AUTO) 1.1 10^3/uL (1.5-3.5); LYMPHOCYTES % (AUTO) 12.3 %; MEAN CORPUSCULAR HEMOGLOBIN 29.7 pg (27.0-31.0); MEAN CORPUSCULAR HGB CONC 33.2 g/dL (32.0-36.0); MEAN CORPUSCULAR VOLUME 89.5 fL (81.0-99.0); MONOCYTES # (AUTO) 0.7 10^3/uL (0.0-1.0); MONOCYTES % (AUTO) 7.3 %; RED BLOOD COUNT 2.85 10^6/uL (4.20-5.40); RED CELL DISTRIBUTION WIDTH 16.2 % (12.0-15.0); UNCORRECTED WHITE BLOOD COUNT 9.3 x10^3/uL; WHITE BLOOD COUNT 9.3 x10^3/uL (4.8-10.8)
[2017-03-19 10:36] LABS: BUN - BLOOD UREA NITROGEN 15 mg/dL (6-20); CALCIUM 8.4 mg/dL (8.5-10.3); CARBON DIOXIDE - CO2 25 mmol/L (21-32); CHLORIDE 104 mmol/L (101-111); CREATININE 0.6 mg/dL (0.4-1.0); GFR - MDRD 112 (>89); GLUCOSE 115 mg/dL (70-100); POTASSIUM 4.4 mmol/L (3.5-5.0); SODIUM 138 mmol/L (135-145)
== END 2017-03-19 08:01 ==
LOC: LAB.R 08:00
PROVIDERS: ATTEND Internal Medicine Infectious Disease
DX: R78.81 Bacteremia (principal)
CPT/HCPCS: 80048; 85025

== ENCOUNTER 2017-03-26 08:00 | Outpatient (CLI) | payer MEDICAID ==
[2017-03-26 10:49] LABS: BASOPHILS # (AUTO) 0.1 10^3/uL (0.0-0.1); BASOPHILS % (AUTO) 0.8 %; EOSINOPHILS # (AUTO) 0.5 10^3/uL (0.0-0.7); EOSINOPHILS % (AUTO) 7.2 %; HCT - HEMATOCRIT 30.1 % (37.0-47.0); HGB - HEMOGLOBIN 9.8 g/dL (12.0-16.0); LYMPHOCYTES # (AUTO) 0.9 10^3/uL (1.5-3.5); LYMPHOCYTES % (AUTO) 13.5 %; MEAN CORPUSCULAR HEMOGLOBIN 29.9 pg (27.0-31.0); MEAN CORPUSCULAR HGB CONC 32.4 g/dL (32.0-36.0); MEAN PLATELET VOLUME 8.7 fL (7.9-10.8); MONOCYTES # (AUTO) 0.5 10^3/uL (0.0-1.0); NEUTROPHILS # (AUTO) 4.6 10^3/uL (1.5-6.6); NEUTROPHILS % (AUTO) 71.5 %; RED BLOOD COUNT 3.27 10^6/uL (4.20-5.40); RED CELL DISTRIBUTION WIDTH 16.5 % (12.0-15.0); UNCORRECTED WHITE BLOOD COUNT 6.5 x10^3/uL; WHITE BLOOD COUNT 6.5 x10^3/uL (4.8-10.8)
[2017-03-26 11:11] LABS: BUN - BLOOD UREA NITROGEN 7 mg/dL (6-20); CARBON DIOXIDE - CO2 23 mmol/L (21-32); CHLORIDE 101 mmol/L (101-111); CREATININE 0.7 mg/dL (0.4-1.0); GFR - MDRD 94 (>89); GLUCOSE 316 mg/dL (70-100); POTASSIUM 4.4 mmol/L (3.5-5.0); SODIUM 133 mmol/L (135-145)
== END 2017-03-26 08:01 | disposition home or self-care (01) ==
LOC: LAB.R 08:00
PROVIDERS: ATTEND Internal Medicine Infectious Disease
DX: R78.81 Bacteremia (principal)
CPT/HCPCS: 80048; 85025

== ENCOUNTER 2017-04-01 08:00 | Outpatient (CLI) | payer MEDICAID ==
[2017-04-01 11:16] LABS: BASOPHILS % (AUTO) 0.7 %; EOSINOPHILS # (AUTO) 0.2 10^3/uL (0.0-0.7); EOSINOPHILS % (AUTO) 3.6 %; HCT - HEMATOCRIT 33.8 % (37.0-47.0); HGB - HEMOGLOBIN 11.2 g/dL (12.0-16.0); LYMPHOCYTES # (AUTO) 1.1 10^3/uL (1.5-3.5); LYMPHOCYTES % (AUTO) 20.2 %; MEAN CORPUSCULAR HEMOGLOBIN 29.8 pg (27.0-31.0); MEAN CORPUSCULAR VOLUME 90.1 fL (81.0-99.0); MEAN PLATELET VOLUME 8.3 fL (7.9-10.8); MONOCYTES # (AUTO) 0.5 10^3/uL (0.0-1.0); MONOCYTES % (AUTO) 8.2 %; NEUTROPHILS # (AUTO) 3.7 10^3/uL (1.5-6.6); NEUTROPHILS % (AUTO) 67.3 %; RED BLOOD COUNT 3.75 10^6/uL (4.20-5.40); RED CELL DISTRIBUTION WIDTH 16.5 % (12.0-15.0); UNCORRECTED WHITE BLOOD COUNT 5.6 x10^3/uL; WHITE BLOOD COUNT 5.6 x10^3/uL (4.8-10.8)
[2017-04-01 11:38] LABS: BUN - BLOOD UREA NITROGEN 12 mg/dL (6-20); CARBON DIOXIDE - CO2 24 mmol/L (21-32); CHLORIDE 104 mmol/L (101-111); CREATININE 0.5 mg/dL (0.4-1.0); GFR - MDRD 138 (>89); GLUCOSE 142 mg/dL (70-100); POTASSIUM 3.3 mmol/L (3.5-5.0); SODIUM 136 mmol/L (135-145)
== END 2017-04-11 23:59 | disposition home or self-care (01) ==
LOC: LAB.R 08:00
PROVIDERS: ATTEND Internal Medicine Infectious Disease
DX: R78.81 Bacteremia (principal); T82.7XXA Infection and inflammatory reaction due to other cardiac and vascular devices, implants and grafts, initial encounter
CPT/HCPCS: 36415; 80048; 85025

== ENCOUNTER 2017-04-11 13:35 | Emergency (ER) | payer MEDICAID ==
--- NOTE | 2017-04-11 16:53 | ED Physician Documentation ---
PD HPI SKIN - Stated complaint Stated Complaint: POST OP WOUND CHECK - Chief complaint Chief Complaint: Cardiac - History obtained from History obtained from: Patient - History of Present Illness Timing - onset: Today (she had pacemaker placed) Timing - duration: Days (some redness of the wound last week, improving. Now with drainage from main incision sternal area (not the pacer pouch site).) Timing - details: Gradual onset, Still present Location: Chest (lower sternal area) Quality / character: Painful, Draining Associated symptoms: N/V/D (nausea without vomiting.). No: Fever, Myalgias Similar symptoms before: Diagnosis (wound infections.) Recently seen: Clinic (cardiothoracic surgery a week ago.) Review of Systems Constitutional: reports: Myalgias. denies: Fever, Chills Nose: denies: Rhinorrhea / runny nose, Congestion Throat: denies: Sore throat Cardiac: reports: Chest pain / pressure. denies: Palpitations, Pedal edema, Calf pain Respiratory: denies: Dyspnea, Cough GI: reports: Nausea. denies: Abdominal Pain, Vomiting, Diarrhea Skin: denies: Abrasion (s), Laceration (s) Neurologic: reports: Other (she noted her sugars to be higher than usual.). 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, Fibroids, Other : Indwelling catheter HEENT: None Psych: Depression, Anxiety, Bipolar disorder, Panic attacks, Post traumatic stress disorder, Claustrophobia Musculoskeletal: Gout, Chronic back pain Derm: None - Past Surgical History Past Surgical History: Yes General: Cholecystectomy, Appendectomy, Hiatal hernia repair, Colonoscopy, EGD /HAND SALTER: 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, Other Cardiovascular: Pacemaker, Other HEENT: Myringotomy (tubes), Tonsil/Adenoidectomy, Other - Present Medications Home Medications: Ambulatory Orders Medication Instructions Recorded Confirmed Atorvastatin Calcium [Lipitor] 80 mg PO QPM 05/24/13 10/01/16 Insulin Glargine,Hum.rec.anlog 40 unit SQ QAM 05/24/13 10/01/16 [Lantus] Levothyroxine Sodium [Synthroid] 250 mcg PO DAILY 05/24/13 10/01/16 Lorazepam [Ativan] 1 mg PO QPM PRN 08/29/13 10/02/16 Insulin Glargine,Hum.rec.anlog 54 units SUBQ QPM 09/05/13 10/01/16 [Lantus Solostar] Amitriptyline [Elavil] 50 mg PO QPM 07/03/14 10/01/16 Pantoprazole [Protonix] 40 mg PO BIDAC 01/17/15 10/01/16 Venlafaxine ER [Effexor ER] 150 mg PO DAILY 08/27/15 10/01/16 Cyclobenzaprine [Flexeril] 10 mg PO TID PRN #15 tablet 12/01/15 10/01/16 Insulin Glulisine [Apidra] 15 unit SQ TIDWM 10/02/16 10/02/16 Lisinopril 20 mg PO DAILY 10/02/16 10/02/16 Metoprolol Tartrate [Lopressor] 50 mg PO BID 10/02/16 10/02/16 Doxycycline Hyclate 100 mg PO BID #14 tablet 04/11/17 Furosemide [Lasix] 80 mg PO 04/11/17 HYDROmorphone [Dilaudid] 2 mg PO ONCE 04/11/17 04/11/17 HYDROmorphone [Dilaudid] 2 mg PO Q6H #10 tablet 04/11/17 Mupirocin 1 applic TP TID #15 oint...g. 04/11/17 Spironolactone 25 mg PO 04/11/17 - Allergies Allergies/Adverse Reactions: Allergies Allergy/AdvReac Type Severity Reaction Status Date / Time sulfamethoxazole Allergy Intermediate rash/ Verified 04/11/17 13:42 [From Bactrim] adhesive Allergy Rash Verified 04/11/17 13:42 amoxicillin [Amoxicillin] Allergy unknown Verified 04/11/17 13:42 oxycodone [Oxycodone] AdvReac Intermediate hallucinate, Verified 04/11/17 13:42 vomit promethazine HCl * AdvReac Mild Nausea Verified 04/11/17 13:42 [From Phenergan] - Social History Does the pt smoke?: No Smoking Status: Never smoker Does the pt drink ETOH?: No Does the pt have substance abuse?: No - Immunizations Immunizations are current?: Yes - POLST Patient has POLST: No PD ED PE NORMAL - Vitals Vital signs reviewed: Yes - General General: Alert and oriented X 3, No acute distress, Well developed/nourished - HEENT HEENT: Pharynx benign. 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, No motor deficit, No sensory deficit, Normal speech Results - Vitals Vitals: Vital Signs - 24 hr 04/11/17 04/11/17 04/11/17 13:38 17:58 20:06 Temperature 36.5 C Heart Rate 82 80 120 H Respiratory 16 20 16 Rate Blood Pressure 165/94 H 135/76 H 107/71 O2 Saturation 100 100 98 04/11/17 21:02 Temperature Heart Rate 80 Respiratory 16 Rate Blood Pressure 139/67 H O2 Saturation 98 Oxygen O2 Source Room air - Labs Labs: Laboratory Tests 04/11/17 04/11/17 04/11/17 17:42 17:42 17:42 WBC 6.7 RBC 3.82 L Hgb 11.5 L Hct 34.2 L MCV 89.7 MCH 30.1 MCHC 33.6 RDW 15.7 H Plt Count 285 MPV 8.4 Neut # 5.3 Lymph # 0.8 L [place] # 0.4 Eos # 0.3 Baso # 0.0 Absolute Nucleated RBC 0.00 Nucleated RBCs 0.1 Sodium 135 Potassium 3.6 Chloride 99 L Carbon Dioxide 28 Anion Gap 8.0 BUN 10 Creatinine 0.6 Estimated GFR (MDRD) 112 Glucose 275 H POC Whole Bld Glucose Lactic Acid 1.6 Calcium 8.6 Total Bilirubin 0.7 AST 19 ALT 11 Alkaline Phosphatase 92 Total Protein 7.1 Albumin 3.2 Globulin 3.9 Albumin/Globulin Ratio 0.8 L Lipase 17 L 04/11/17 20:59 WBC RBC Hgb Hct MCV MCH MCHC RDW Plt Count MPV Neut # Lymph # [place] # Eos # Baso # Absolute Nucleated RBC Nucleated RBCs Sodium Potassium Chloride Carbon Dioxide Anion Gap BUN Creatinine Estimated GFR (MDRD) Glucose POC Whole Bld Glucose 217 H Lactic Acid Calcium Total Bilirubin AST ALT Alkaline Phosphatase Total Protein Albumin Globulin Albumin/Globulin Ratio Lipase PD MEDICAL DECISION MAKING - ED course Complexity details: d/w residential property consultant (behavior interventionist Cardiology and then CT Surgery ( surgeon was familiar with the patient and had seen her in clinic this past week) . He preferred seeing pt in clinic Thursday with IV Vanco dose here and DOxycycline PO. Patient comfortable with that plan. ) Departure - Departure Disposition: Home, Self Care Clinical Impression: Wound infection after surgery Qualifiers: Encounter type: initial encounter Qualified Code(s): T81.4XXA - Infection following a procedure, initial encounter Condition: Stable Record reviewed to determine appropriate education?: Yes Instructions: ED Wound Care Follow-Up: Amisha Staton DO [Primary Care Provider] - Prescriptions: HYDROmorphone [Dilaudid] 2 mg PO Q6H #10 tablet Doxycycline Hyclate 100 mg PO BID #14 tablet Mupirocin 1 applic TP TID #15 oint...g. Comments: Continue usual medications. Doxycycline twice daily for the next week. Use hydromorphone tablets as needed for pain. Cleanse the surgical wound twice daily with soap and water and apply mupirocin ointment. Follow-up with the cardiothoracic surgery clinic on Thursday as planned. Discharge Date/Time: 04/11/17 21:10
[2017-04-11] MEDS ORDERED: HYDROmorphone 1 MG/ML SYRINGE IM STA (17:05)
[2017-04-11] MEDS ORDERED: ONDANSETRON 4 MG/2 ML VIAL IM STA (17:06)
[2017-04-11] MEDS ORDERED: SODIUM CHLORIDE 0.9% 1,000 ML IV ONE (17:06)
[2017-04-11] MEDS ORDERED: HYDROmorphone 1 MG/ML SYRINGE IVP STA ×2 (17:06→19:36)
[2017-04-11 17:52] LABS: BASOPHILS % (AUTO) 0.2 %; EOSINOPHILS # (AUTO) 0.3 10^3/uL (0.0-0.7); EOSINOPHILS % (AUTO) 3.9 %; HCT - HEMATOCRIT 34.2 % (37.0-47.0); HGB - HEMOGLOBIN 11.5 g/dL (12.0-16.0); LYMPHOCYTES # (AUTO) 0.8 10^3/uL (1.5-3.5); MEAN CORPUSCULAR HEMOGLOBIN 30.1 pg (27.0-31.0); MEAN CORPUSCULAR HGB CONC 33.6 g/dL (32.0-36.0); MEAN CORPUSCULAR VOLUME 89.7 fL (81.0-99.0); MEAN PLATELET VOLUME 8.4 fL (7.9-10.8); MONOCYTES # (AUTO) 0.4 10^3/uL (0.0-1.0); MONOCYTES % (AUTO) 5.4 %; NEUTROPHILS # (AUTO) 5.3 10^3/uL (1.5-6.6); NEUTROPHILS % (AUTO) 78.5 %; NUCLEATED RED BLOOD CELLS AUTO 0.1 /100WBC; RED BLOOD COUNT 3.82 10^6/uL (4.20-5.40); RED CELL DISTRIBUTION WIDTH 15.7 % (12.0-15.0); UNCORRECTED WHITE BLOOD COUNT 6.7 x10^3/uL; WHITE BLOOD COUNT 6.7 x10^3/uL (4.8-10.8)
[2017-04-11 18:02] LABS: ALBUMIN/GLOBULIN RATIO 0.8 (1.0-2.2); BILIRUBIN,TOTAL 0.7 mg/dL (0.2-1.0); CALCIUM 8.6 mg/dL (8.5-10.3); CREATININE 0.6 mg/dL (0.4-1.0); POTASSIUM 3.6 mmol/L (3.5-5.0); TOTAL PROTEIN 7.1 g/dL (6.7-8.2)
[2017-04-11] MEDS ORDERED: DOXYCYCLINE 100 MG TABLET PO STA (18:31)
[2017-04-11] MEDS ORDERED: VANCOMYCIN INJ 1 GM in SODIUM CHLORIDE 0.9% 250 ML IV STA (18:31)
[2017-04-11] MEDS ORDERED: DOXYCYCLINE 100 MG TABLET PO ONE (18:44)
[2017-04-11] MEDS ORDERED: VANCOMYCIN 1 GM VIAL ONE (19:09)
[2017-04-11] MEDS ORDERED: HYDROmorphone 1 MG/ML SYRINGE ONE (19:54)
[2017-04-11] MEDS ORDERED: SODIUM CHLORIDE FLUSH 0.9% 10 ML SYRINGE IVP ONE (19:55)
[2017-04-11] MEDS ORDERED: MUPIROCIN 2% OINT 1 GM TOP STA (20:00)
[2017-04-11] MEDS ORDERED: BACITRACIN OINT TOP ONE (20:23)
[2017-04-11] MEDS ORDERED: MUPIROCIN 2% OINT 1 GM ONE (20:40)
[2017-04-11 21:02] VITALS: BP 139/67
== END 2017-04-11 21:10 | disposition home or self-care (01) ==
LOC: ED 13:35
DX: T81.4XXA Infection following a procedure, initial encounter (principal); T81.31XA Disruption of external operation (surgical) wound, not elsewhere classified, initial encounter; Y83.8 Other surgical procedures as the cause of abnormal reaction of the patient, or of later complication, without mention of misadventure at the time of the procedure; Z95.0 Presence of cardiac pacemaker; I10 Essential (primary) hypertension; E10.9 Type 1 diabetes mellitus without complications; Z79.4 Long term (current) use of insulin; E03.9 Hypothyroidism, unspecified
CPT/HCPCS: 36415; 80053; 83605; 83690; 85025; 87070; 87077; 87181; 87205; 96365; 96372; 96375; 96376; 99284; A9270; J1170; J3370; 25605

== ENCOUNTER 2017-04-24 19:12 | Inpatient (IN) | payer MEDICAID ==
--- NOTE | 2017-04-24 21:15 | ED Physician Documentation ---
PD HPI NVD - Stated complaint Stated Complaint: WEAK/DIZZY - Chief complaint Chief Complaint: Abd Pain - History obtained from History obtained from: Patient - History of Present Illness Timing - onset: Yesterday Timing - details: Gradual onset (onset of nausea with vomiting, general weakness and elevated sugars yesterday, persisting into today. Has had ongoing drainage from chest wound, with purulence. No noted fevers.) Associated symptoms: Chest pain (sternal wound area), Loss of appetite. No: Fever, Near syncope / syncope Contributing factors: Recent antibiotics (started 04/11 and was on them for a week for sternal wound infection.), Diabetes. No: Sick contact Improved by: No: Eating, Vomiting Worsened by: Eating Recently seen: Clinic (CT surgery at (who placed her pacer) on 04/14 and had subcut sutures removed and not continued on abx. Patient does not believe they referenced our culture results. She has had ongoing purulent drainage from that site, with changing dressings daily.), Emergency Dept (on 04/11 for wound infection and started on Doxycycline.) Review of Systems Constitutional: reports: Myalgias. denies: Fever Nose: denies: Rhinorrhea / runny nose, Congestion Throat: denies: Sore throat Cardiac: denies: Palpitations Respiratory: denies: Cough GI: reports: Abdominal Pain (upper since yesterday), Nausea, Vomiting. denies: Diarrhea Skin: reports: Lesions (sternal incisional wound with dehiscence and some drainage.) PD PAST MEDICAL HISTORY - Past Medical History Cardiovascular: Hypertension, Arrhythmia, Other Respiratory: None Neuro: None Endocrine/Autoimmune: Type 1 diabetes, HyPOthyroidism, Other GI: GERD [employer]: Endometriosis, Fibroids, Other : Indwelling catheter HEENT: None Psych: Depression, Anxiety, Bipolar disorder, Panic attacks, Post traumatic stress disorder, Claustrophobia Musculoskeletal: Gout, Chronic back pain Derm: None - Past Surgical History Past Surgical History: Yes General: Cholecystectomy, Appendectomy, Hiatal hernia repair, Colonoscopy, EGD /[employer]: Oophrectomy, Other Cardiovascular: Pacemaker, Other HEENT: Myringotomy (tubes), Tonsil/Adenoidectomy, Other - Present Medications Home Medications: Ambulatory Orders Medication Instructions Recorded Confirmed Atorvastatin Calcium [Lipitor] 80 mg PO QPM 05/24/13 10/01/16 Insulin Glargine,Hum.rec.anlog 40 unit SQ QAM 05/24/13 10/01/16 [Lantus] Levothyroxine Sodium [Synthroid] 250 mcg PO DAILY 05/24/13 10/01/16 Lorazepam [Ativan] 1 mg PO QPM PRN 08/29/13 10/02/16 Insulin Glargine,Hum.rec.anlog 54 units SUBQ QPM 09/05/13 10/01/16 [Lantus Solostar] Amitriptyline [Elavil] 50 mg PO QPM 07/03/14 10/01/16 Pantoprazole [Protonix] 40 mg PO BIDAC 01/17/15 10/01/16 Venlafaxine ER [Effexor ER] 150 mg PO DAILY 08/27/15 10/01/16 Cyclobenzaprine [Flexeril] 10 mg PO TID PRN #15 tablet 12/01/15 10/01/16 Insulin Glulisine [Apidra] 15 unit SQ TIDWM 10/02/16 10/02/16 Lisinopril 20 mg PO DAILY 10/02/16 10/02/16 Metoprolol Tartrate [Lopressor] 50 mg PO BID 10/02/16 10/02/16 Doxycycline Hyclate 100 mg PO BID #14 tablet 04/11/17 Furosemide [Lasix] 80 mg PO 04/11/17 HYDROmorphone [Dilaudid] 2 mg PO ONCE 04/11/17 04/11/17 HYDROmorphone [Dilaudid] 2 mg PO Q6H #10 tablet 04/11/17 Mupirocin 1 applic TP TID #15 oint...g. 04/11/17 Spironolactone 25 mg PO 04/11/17 - Allergies Allergies/Adverse Reactions: Allergies Allergy/AdvReac Type Severity Reaction Status Date / Time sulfamethoxazole Allergy Intermediate rash/ Verified 04/24/17 19:25 [From Bactrim] adhesive Allergy Rash Verified 04/24/17 19:25 amoxicillin [Amoxicillin] Allergy unknown Verified 04/24/17 19:25 oxycodone [Oxycodone] AdvReac Intermediate hallucinate, Verified 04/24/17 19:25 vomit promethazine HCl * AdvReac Mild Nausea Verified 04/24/17 19:25 [From Phenergan] - Social History Does the pt smoke?: No Smoking Status: Never smoker Does the pt drink ETOH?: No Does the pt have substance abuse?: No - Immunizations Immunizations are current?: Yes - POLST Patient has POLST: No PD ED PE NORMAL - Vitals Vital signs reviewed: Yes - General General: Alert and oriented X 3, No acute distress, Well developed/nourished - HEENT HEENT: Pharynx benign. No: Moist mucous membranes - Neck Neck: Supple, no meningeal sign, No adenopathy - Cardiac Cardiac: RRR, No murmur - Respiratory Respiratory: Clear bilaterally, Other (sternal area with skin layer dehiscence of vertical incisional wound. Mild yellowish drainage lower aspect, and redness just at immediate edges. No deeper induration and no pus expressed with palpation around the site. Another incision under left breast with faint moisture at one end of it. The pacer pouch left upper chest without redness nor warmth. ) - Abdomen Abdomen: Normal bowel sounds, Soft, Non tender, Non distended - Back Back: No CVA TTP - Derm Derm: Normal color, Warm and dry - Extremities Extremities: No edema, No calf tenderness / cord - Neuro Neuro: Alert and oriented X 3, No motor deficit, Normal speech - Psych Psych: Normal mood, Normal affect Results - Vitals Vitals: Vital Signs - 24 hr 04/24/17 04/24/17 19:17 23:09 Temperature 36.4 C L Heart Rate 81 80 Respiratory 16 18 Rate Blood Pressure 161/83 H 151/57 H O2 Saturation 100 99 Oxygen O2 Source Room air - Labs Labs: Laboratory Tests 04/24/17 04/24/17 04/24/17 21:02 22:08 22:08 WBC 7.8 RBC 4.33 Hgb 12.8 Hct 40.8 MCV 94.2 MCH 29.6 MCHC 31.4 L RDW 16.3 H Plt Count 227 MPV 8.7 Neut # 6.4 Lymph # 0.8 L Moffat # 0.5 Eos # 0.1 Baso # 0.1 Absolute Nucleated RBC 0.00 Nucleated RBC % 0.0 VBG pH VBG pCO2 VBG pO2 VBG HCO3 VBG Total CO2 VBG O2 Saturation VBG Base Excess Sodium 132 L Potassium 4.7 Chloride 96 L Carbon Dioxide 16 L Anion Gap 20.0 H BUN 16 Creatinine 1.0 Estimated GFR (MDRD) 62 L Glucose 568 H* POC Whole Bld Glucose 475 H Calcium 8.9 Total Bilirubin 1.7 H AST 11 ALT 11 Alkaline Phosphatase 106 Total Protein 7.0 Albumin 3.3 Globulin 3.7 Albumin/Globulin Ratio 0.9 L Lipase 16 L Serum Ketones LARGE H 04/24/17 04/24/17 22:08 23:18 WBC RBC Hgb Hct MCV MCH MCHC RDW Plt Count MPV Neut # Lymph # Moffat # Eos # Baso # Absolute Nucleated RBC Nucleated RBC % VBG pH 7.329 VBG pCO2 30.5 L VBG pO2 72.6 H VBG HCO3 15.7 L VBG Total CO2 16.6 L VBG O2 Saturation 94.5 H VBG Base Excess -8.9 L Sodium Potassium Chloride Carbon Dioxide Anion Gap BUN Creatinine Estimated GFR (MDRD) Glucose POC Whole Bld Glucose 490 H Calcium Total Bilirubin AST ALT Alkaline Phosphatase Total Protein Albumin Globulin Albumin/Globulin Ratio Lipase Serum Ketones PD MEDICAL DECISION MAKING - ED course Complexity details: reviewed old records, reviewed results (prior culture showing ENterococcus, sensitive to PCN, so presume 1stG ceph would work too, since she is allergic to PCN. ), re-evaluated patient, considered differential, d/w patient, d/w health and safety consultant (Dr. Carcamo, Hospitalist) Departure - Departure Disposition: ED Place in Observation Clinical Impression: Uncontrolled diabetes mellitus Qualifiers: Diabetes mellitus type: type 1 Diabetes mellitus complication status: with ketoacidosis Diabetes mellitus complication detail: without coma Qualified Code( s): E10.10 - Type 1 diabetes mellitus with ketoacidosis without coma Wound infection after surgery Qualifiers: Encounter type: subsequent encounter Qualified Code(s): T81.4XXD - Infection following a procedure, subsequent encounter DKA (diabetic ketoacidoses) Qualifiers: Diabetes mellitus type: type 1 Diabetes mellitus complication detail: without coma Qualified Code(s): E10.10 - Type 1 diabetes mellitus with ketoacidosis without coma Condition: Stable Record reviewed to determine appropriate education?: Yes
[2017-04-24] MEDS ORDERED: ONDANSETRON 4 MG/2 ML VIAL IVP STA (21:16)
[2017-04-24] MEDS ORDERED: SODIUM CHLORIDE 0.9% 1,000 ML IV ONE ×3 (21:16→23:27)
[2017-04-24] MEDS ORDERED: HYDROmorphone 1 MG/ML CARPUJECT IVP STA ×2 (21:16→23:25)
[2017-04-24] MEDS ORDERED: INSULIN REGULAR HUMAN 100 UNIT/1 ML 10 ML MDV IVP STA (21:17)
[2017-04-24 22:12] LABS: BASOPHILS # (AUTO) 0.1 10^3/uL (0.0-0.1); EOSINOPHILS # (AUTO) 0.1 10^3/uL (0.0-0.7); HCT - HEMATOCRIT 40.8 % (37.0-47.0); HGB - HEMOGLOBIN 12.8 g/dL (12.0-16.0); LYMPHOCYTES # (AUTO) 0.8 10^3/uL (1.5-3.5); LYMPHOCYTES % (AUTO) 10.1 %; MEAN CORPUSCULAR HEMOGLOBIN 29.6 pg (27.0-31.0); MEAN CORPUSCULAR HGB CONC 31.4 g/dL (32.0-36.0); MEAN CORPUSCULAR VOLUME 94.2 fL (81.0-99.0); MEAN PLATELET VOLUME 8.7 fL (7.9-10.8); MONOCYTES # (AUTO) 0.5 10^3/uL (0.0-1.0); MONOCYTES % (AUTO) 6.1 %; NEUTROPHILS # (AUTO) 6.4 10^3/uL (1.5-6.6); NEUTROPHILS % (AUTO) 81.8 %; RED BLOOD COUNT 4.33 10^6/uL (4.20-5.40); RED CELL DISTRIBUTION WIDTH 16.3 % (12.0-15.0); UNCORRECTED WHITE BLOOD COUNT 7.8 x10^3/uL; WHITE BLOOD COUNT 7.8 x10^3/uL (4.8-10.8)
[2017-04-24 22:14] LABS: VBG PH 7.329 (7.31-7.41); VBG TOTAL CO2 16.6 mmol/L (24-29)
[2017-04-24 22:15] LABS: VBG BASE EXCESS -8.9 mmol/L (-2 - +2); VBG OXYGEN SATURATION 94.5 % (60-80)
[2017-04-24] MEDS ORDERED: INSULIN ASPART 100 UNIT/1 ML 10 ML MDV SUBQ ONE (22:16)
[2017-04-24] MEDS ORDERED: HYDROmorphone 1 MG/ML CARPUJECT ONE ×2 (22:16→23:41)
[2017-04-24] MEDS ORDERED: ONDANSETRON 4 MG/2 ML VIAL ONE (22:16)
[2017-04-24] MEDS ORDERED: ceFAZolin 1 GM in SODIUM CHLORIDE 0.9% MINIBAG 100 ML IV ONE (22:26)
[2017-04-24] MEDS ORDERED: INSULIN REGULAR HUMAN 100 UNIT/1 ML 10 ML MDV ONE (22:36)
[2017-04-24] MEDS ORDERED: ceFAZolin 1 GM VIAL ONE (22:55)
[2017-04-24 22:58] LABS: ALBUMIN/GLOBULIN RATIO 0.9 (1.0-2.2); BILIRUBIN,TOTAL 1.7 mg/dL (0.2-1.0); BUN - BLOOD UREA NITROGEN 16 mg/dL (6-20); CALCIUM 8.9 mg/dL (8.5-10.3); CARBON DIOXIDE - CO2 16 mmol/L (21-32); CHLORIDE 96 mmol/L (101-111); GFR - MDRD 62 (>89); LIPASE 16 U/L (22-51); POTASSIUM 4.7 mmol/L (3.5-5.0); SODIUM 132 mmol/L (135-145)
[2017-04-24 22:59] LABS: GLUCOSE 568 mg/dL (70-100)
[2017-04-24] MEDS ORDERED: INSULIN REGULAR HUMAN 100 UNIT in SODIUM CHLORIDE 0.9% 100ML 99 ML IV STA (23:24)
[2017-04-24] MEDS ORDERED: CYCLOBENZAPRINE 10 MG TABLET PO PRN (23:24)
[2017-04-24] MEDS ORDERED: ACETAMINOPHEN 325 MG TABLET PO PRN (23:28)
[2017-04-24] MEDS ORDERED: oxyCODONE 5 MG TABLET PO PRN ×2 (23:28)
[2017-04-24] MEDS ORDERED: ONDANSETRON 4 MG/2 ML VIAL IVP PRN (23:28)
[2017-04-24] MEDS ORDERED: PROCHLORPERAZINE 10 MG/2 ML VIAL IVP PRN (23:28)
[2017-04-24] MEDS ORDERED: INSULIN REGULAR HUMAN 100 UNIT/1 ML 10 ML MDV SUBQ SCH (23:28)
[2017-04-25 00:10] LABS: VBG BASE EXCESS -10.4 mmol/L (-2 - +2); VBG PH 7.305 (7.31-7.41); VBG TOTAL CO2 15.5 mmol/L (24-29)
[2017-04-25 00:12] LABS: BASOPHILS # (AUTO) 0.1 10^3/uL (0.0-0.1); EOSINOPHILS # (AUTO) 0.1 10^3/uL (0.0-0.7); EOSINOPHILS % (AUTO) 0.8 %; HCT - HEMATOCRIT 37.3 % (37.0-47.0); LYMPHOCYTES # (AUTO) 0.9 10^3/uL (1.5-3.5); LYMPHOCYTES % (AUTO) 12.7 %; MEAN CORPUSCULAR HEMOGLOBIN 29.6 pg (27.0-31.0); MEAN CORPUSCULAR HGB CONC 32.1 g/dL (32.0-36.0); MEAN CORPUSCULAR VOLUME 92.1 fL (81.0-99.0); MEAN PLATELET VOLUME 8.4 fL (7.9-10.8); MONOCYTES # (AUTO) 0.4 10^3/uL (0.0-1.0); MONOCYTES % (AUTO) 5.4 %; NEUTROPHILS % (AUTO) 80.1 %; RED BLOOD COUNT 4.05 10^6/uL (4.20-5.40); RED CELL DISTRIBUTION WIDTH 16.1 % (12.0-15.0); UNCORRECTED WHITE BLOOD COUNT 7.4 x10^3/uL; WHITE BLOOD COUNT 7.4 x10^3/uL (4.8-10.8)
[2017-04-25 00:18] LABS: GLUCOSE 476 mg/dL (70-100); MAGNESIUM 1.6 mg/dL (1.7-2.8)
[2017-04-25 00:27] LABS: BILIRUBIN,URINE NEGATIVE (NEGATIVE)
[2017-04-25 00:28] LABS: UA CHARGE (STRIP ONLY) YES; UR CULTURE IF IND NOT INDICATED
[2017-04-25] MEDS ORDERED: VANCOMYCIN PER PHARMACY 1 GM in SODIUM CHLORIDE 0.9% 250 ML IV SCH (01:00)
[2017-04-25] MEDS: HYDROmorphone 2 MG TABLET PO SCH ×4 (01:10→19:58)
[2017-04-25] MEDS: SODIUM CHLORIDE 0.9% 1,000 ML IV SCH ×4 (01:12→21:41)
[2017-04-25] MEDS: SODIUM CHLORIDE FLUSH 0.9% 10 ML SYRINGE IVP PRN ×2 (01:17→02:29)
[2017-04-25 01:18] LABS: BUN - BLOOD UREA NITROGEN 13 mg/dL (6-20); CARBON DIOXIDE - CO2 15 mmol/L (21-32); CHLORIDE 104 mmol/L (101-111); CREATININE 0.9 mg/dL (0.4-1.0); GFR - MDRD 70 (>89); GLUCOSE 411 mg/dL (70-100); MAGNESIUM 1.7 mg/dL (1.7-2.8); SODIUM 134 mmol/L (135-145)
[2017-04-25] MEDS ORDERED: INSULIN REGULAR HUMAN 100 UNIT in SODIUM CHLORIDE 0.9% 100ML 99 ML IV SCH (01:44)
[2017-04-25] MEDS ORDERED: VANCOMYCIN INJ 1 GM in SODIUM CHLORIDE 0.9% 250 ML IV SCH (02:00)
[2017-04-25] MEDS ORDERED: VANCOMYCIN PER PHARMACY IV PRN (02:10)
[2017-04-25] MEDS ORDERED: SODIUM CHLORIDE 0.9% IV PRN (02:10)
[2017-04-25 02:16] LABS: HEMOGLOBIN A1C 1.21 g/dL
[2017-04-25] MEDS: HYDROmorphone 1 MG/ML CARPUJECT IVP PRN ×10 (02:29→23:00)
[2017-04-25 03:17] LABS: BUN - BLOOD UREA NITROGEN 11 mg/dL (6-20); CARBON DIOXIDE - CO2 17 mmol/L (21-32); CHLORIDE 107 mmol/L (101-111); CREATININE 0.7 mg/dL (0.4-1.0); GFR - MDRD 94 (>89); GLUCOSE 198 mg/dL (70-100); MAGNESIUM 1.5 mg/dL (1.7-2.8); POTASSIUM 3.4 mmol/L (3.5-5.0); SODIUM 135 mmol/L (135-145)
[2017-04-25] MEDS ORDERED: D5.45NS W/20 MEQ KCL 1,000 ML IV STA (03:28)
[2017-04-25] MEDS ORDERED: INSULIN GLARGINE 300 UNIT/3 ML PEN SUBQ SCH ×5 (03:30→21:00)
[2017-04-25] MEDS ORDERED: INSULIN GLARGINE 300 UNIT/3 ML PEN SUBQ ONE (03:38)
[2017-04-25] MEDS: MAGNESIUM OXIDE 400 MG TABLET PO SCH ×2 (04:06→09:48)
[2017-04-25] MEDS: SODIUM CHLORIDE FLUSH 0.9% 10 ML SYRINGE IVP SCH ×3 (05:14→20:29)
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
[2017-04-25 06:03] LABS: PT - PROTHROMBIN TIME 11.5 secs (9.9-12.6)
[2017-04-25 06:07] LABS: BASOPHILS # (AUTO) 0.1 10^3/uL (0.0-0.1); BASOPHILS % (AUTO) 0.9 %; EOSINOPHILS # (AUTO) 0.1 10^3/uL (0.0-0.7); EOSINOPHILS % (AUTO) 1.4 %; HCT - HEMATOCRIT 37.9 % (37.0-47.0); HGB - HEMOGLOBIN 12.4 g/dL (12.0-16.0); LYMPHOCYTES # (AUTO) 1.9 10^3/uL (1.5-3.5); MEAN CORPUSCULAR HEMOGLOBIN 30.4 pg (27.0-31.0); MEAN CORPUSCULAR HGB CONC 32.7 g/dL (32.0-36.0); MEAN PLATELET VOLUME 9.5 fL (7.9-10.8); MONOCYTES # (AUTO) 0.7 10^3/uL (0.0-1.0); MONOCYTES % (AUTO) 7.3 %; NEUTROPHILS % (AUTO) 71.4 %; NUCLEATED RED BLOOD CELLS AUTO 0.1 /100WBC; RED BLOOD COUNT 4.08 10^6/uL (4.20-5.40); RED CELL DISTRIBUTION WIDTH 16.2 % (12.0-15.0); UNCORRECTED WHITE BLOOD COUNT 10.7 x10^3/uL; WHITE BLOOD COUNT 9.8 x10^3/uL (4.8-10.8)
[2017-04-25 07:00] LABS: ALBUMIN/GLOBULIN RATIO 0.9 (1.0-2.2); BILIRUBIN,TOTAL 0.7 mg/dL (0.2-1.0); BUN - BLOOD UREA NITROGEN 11 mg/dL (6-20); CALCIUM 8.3 mg/dL (8.5-10.3); CARBON DIOXIDE - CO2 19 mmol/L (21-32); CHLORIDE 108 mmol/L (101-111); CREATININE 0.6 mg/dL (0.4-1.0); GFR - MDRD 112 (>89); GLUCOSE 161 mg/dL (70-100); MAGNESIUM 1.6 mg/dL (1.7-2.8); PHOSPHORUS 2.6 mg/dL (2.5-4.6); POTASSIUM 3.7 mmol/L (3.5-5.0); SODIUM 139 mmol/L (135-145); TOTAL PROTEIN 6.2 g/dL (6.7-8.2)
[2017-04-25 07:04] LABS: PLATELET ESTIMATE, MANUAL NORMAL (130-450,000) (NORMAL)
[2017-04-25 07:07] LABS: CALCIUM 8.3 mg/dL (8.5-10.3)
[2017-04-25 07:11] LABS: CALCIUM, IONIZED 1.08 mmol/L (1.15-1.33); VBG PH 7.345 (7.31-7.41)
[2017-04-25] MEDS: INSULIN ASPART 300 UNIT/3 ML PEN SUBQ SCH ×4 (08:11→20:15)
[2017-04-25] MEDS: ENOXAPARIN 40 MG/0.4 ML SYRINGE SUBQ SCH (09:35)
[2017-04-25] MEDS: FUROSEMIDE 40 MG TABLET PO SCH (09:36)
[2017-04-25] MEDS: FAMOTIDINE 20 MG TABLET PO SCH (09:36)
[2017-04-25] MEDS: LEVOTHYROXINE 100 MCG TABLET PO SCH (09:36)
[2017-04-25] MEDS: METOPROLOL TARTRATE 50 MG TABLET PO SCH ×2 (09:37→20:14)
[2017-04-25] MEDS: SPIRONOLACTONE 25 MG TABLET PO SCH (09:37)
[2017-04-25] MEDS: LISINOPRIL 20 MG TABLET PO SCH (09:37)
[2017-04-25] MEDS: VENLAFAXINE ER 75 MG CAPSULE PO SCH (09:37)
[2017-04-25] MEDS: VANCOMYCIN INJ 1 GM in SODIUM CHLORIDE 0.9% 250 ML IV SCH ×2 (09:49→18:02)
[2017-04-25] MEDS ORDERED: INSULIN ASPART 300 UNIT/3 ML PEN SUBQ SCH ×2 (17:17→21:06)
[2017-04-25] MEDS: ATORVASTATIN 40 MG TABLET PO SCH (20:13)
[2017-04-25] MEDS: AMITRIPTYLINE 25 MG TABLET PO SCH (20:14)
[2017-04-26] MEDS: HYDROmorphone 1 MG/ML CARPUJECT IVP PRN ×3 (01:36→08:03)
[2017-04-26 01:55] LABS: BASOPHILS # (AUTO) 0.1 10^3/uL (0.0-0.1); BASOPHILS % (AUTO) 1.1 %; EOSINOPHILS # (AUTO) 0.2 10^3/uL (0.0-0.7); EOSINOPHILS % (AUTO) 3.2 %; HCT - HEMATOCRIT 41.4 % (37.0-47.0); HGB - HEMOGLOBIN 13.4 g/dL (12.0-16.0); LYMPHOCYTES # (AUTO) 1.5 10^3/uL (1.5-3.5); LYMPHOCYTES % (AUTO) 29.6 %; MEAN CORPUSCULAR HEMOGLOBIN 29.7 pg (27.0-31.0); MEAN CORPUSCULAR HGB CONC 32.3 g/dL (32.0-36.0); MEAN CORPUSCULAR VOLUME 91.9 fL (81.0-99.0); MEAN PLATELET VOLUME 8.3 fL (7.9-10.8); MONOCYTES # (AUTO) 0.5 10^3/uL (0.0-1.0); MONOCYTES % (AUTO) 9.7 %; NEUTROPHILS # (AUTO) 2.8 10^3/uL (1.5-6.6); NEUTROPHILS % (AUTO) 56.4 %; RED CELL DISTRIBUTION WIDTH 15.9 % (12.0-15.0)
[2017-04-26 02:01] LABS: ALBUMIN/GLOBULIN RATIO 0.9 (1.0-2.2); BILIRUBIN,TOTAL 0.6 mg/dL (0.2-1.0); CALCIUM 8.4 mg/dL (8.5-10.3); MAGNESIUM 1.9 mg/dL (1.7-2.8); PHOSPHORUS 4.5 mg/dL (2.5-4.6); POTASSIUM 3.3 mmol/L (3.5-5.0); TOTAL PROTEIN 7.4 g/dL (6.7-8.2)
[2017-04-26 02:08] LABS: CREATININE 0.8 mg/dL (0.4-1.0)
[2017-04-26 02:17] LABS: CALCIUM 8.4 mg/dL (8.5-10.3)
[2017-04-26] MEDS: HYDROmorphone 2 MG TABLET PO SCH ×4 (02:25→20:08)
[2017-04-26] MEDS: VANCOMYCIN INJ 1 GM in SODIUM CHLORIDE 0.9% 250 ML IV SCH ×3 (02:25→18:21)
[2017-04-26] MEDS ORDERED: POTASSIUM CHLORIDE 20 MEQ TABLET PO ONE (02:29)
[2017-04-26] MEDS: SODIUM CHLORIDE FLUSH 0.9% 10 ML SYRINGE IVP SCH ×3 (05:55→21:35)
[2017-04-26] MEDS: INSULIN ASPART 300 UNIT/3 ML PEN SUBQ SCH ×4 (07:43→21:10)
[2017-04-26] MEDS: SODIUM CHLORIDE 0.9% 1,000 ML IV SCH (09:34)
[2017-04-26] MEDS: ENOXAPARIN 40 MG/0.4 ML SYRINGE SUBQ SCH (09:36)
[2017-04-26] MEDS: FAMOTIDINE 20 MG TABLET PO SCH (09:36)
[2017-04-26] MEDS: LEVOTHYROXINE 100 MCG TABLET PO SCH (09:37)
[2017-04-26] MEDS: FUROSEMIDE 40 MG TABLET PO SCH (09:37)
[2017-04-26] MEDS: METOPROLOL TARTRATE 50 MG TABLET PO SCH ×2 (09:38→20:07)
[2017-04-26] MEDS: LISINOPRIL 20 MG TABLET PO SCH (09:38)
[2017-04-26] MEDS: SPIRONOLACTONE 25 MG TABLET PO SCH (09:38)
[2017-04-26] MEDS: VENLAFAXINE ER 75 MG CAPSULE PO SCH (09:39)
[2017-04-26] MEDS: INSULIN GLARGINE 300 UNIT/3 ML PEN SUBQ SCH ×3 (10:04→21:11)
[2017-04-26] MEDS: HYDROmorphone 1 MG/ML SYRINGE IVP PRN ×6 (10:05→20:15)
--- NOTE | 2017-04-26 17:56 | PROVIDER PROGRESS NOTE ---
Assessment/Plan - Problem List (1) DKA (diabetic ketoacidoses) Qualifiers: Diabetes mellitus type: type 1 Diabetes mellitus complication detail: without coma Qualified Code(s): E10.10 - Type 1 diabetes mellitus with ketoacidosis without coma Assessment/Plan: Improved Will adjust Lantus insulin and continue sliding scale coverage Pt can be transferred out of ICU to Med-Surg to assess OOB and with activity (2) Wound infection after surgery Qualifiers: Encounter type: subsequent encounter Qualified Code(s): T81.4XXD - Infection following a procedure, subsequent encounter Assessment/Plan: Surgical consult pending and/or will reach out to her surgeon at [facility] tomorrow for further recommendations (3) Pacemaker complications Assessment/Plan: Stable after last procedure - Current Meds Current Meds: Current Medications Generic Name Dose Route Start Last Admin Trade Name Freq PRN Reason Stop Dose Admin Amitriptyline HCl 50 mg 04/25/17 21:00 04/25/17 20:14 Elavil PO 50 mg QPM ADALBERTO Administration Atorvastatin Calcium 80 mg 04/25/17 21:00 04/25/17 20:13 Lipitor PO 80 mg QPM ADALBERTO Administration Enoxaparin Sodium 40 mg 04/25/17 09:00 04/26/17 09:36 Lovenox SUBQ 40 mg DAILY ADALBERTO Administration Famotidine 20 mg 04/25/17 09:00 04/26/17 09:36 Pepcid PO 20 mg DAILY ADALBERTO Administration Furosemide 80 mg 04/25/17 09:00 04/26/17 09:37 Lasix PO 80 mg DAILY ADALBERTO Administration Hydromorphone HCl 2 mg 04/26/17 02:00 04/26/17 15:02 Dilaudid PO 2 mg Q6H ADALBERTO Administration Hydromorphone HCl 1 mg 04/26/17 10:00 04/26/17 16:07 Dilaudid Inj Syringe IVP 1 mg Q2H PRN Administration PAIN 8-10 Vancomycin HCl 1 gm/ Sodium 250 mls @ 167 mls/hr 04/25/17 10:00 04/26/17 12: 13 Chloride IV Infused Q8H ADALBERTO Infusion Sodium Chloride 1,000 mls @ 75 mls/hr 04/25/17 21:09 04/26/17 16:00 Normal Saline 0.9% IV 75 mls/hr .[id number] ADALBERTO Infusion Insulin Aspart 2 - 10 unit 04/26/17 08:00 04/26/17 17:23 Novolog SUBQ Not Given 0800,1200,1700,2100 [facility] Protocol Insulin Glargine 20 unit 04/26/17 10:00 04/26/17 10:04 Lantus Solostar SUBQ 20 unit QDBREAKFAST ADALBERTO Administration Levothyroxine Sodium 250 mcg 04/25/17 09:00 04/26/17 09:37 Synthroid PO 250 mcg DAILY ADALBERTO Administration Lisinopril 20 mg 04/25/17 09:00 04/26/17 09:38 Zestril PO 20 mg DAILY ADALBERTO Administration Metoprolol Tartrate 50 mg 04/25/17 09:00 04/26/17 09:38 Lopressor PO 50 mg BID ADALBERTO Administration Ondansetron HCl 4 mg 04/24/17 23:28 04/25/17 01:16 Zofran Inj IVP 4 mg Q6HR PRN Administration Nausea / Vomiting Sodium Chloride 10 ml 04/25/17 06:00 04/26/17 15:03 Normal Saline Flush 0.9% IVP 10 ml Q8HR ADALBERTO Administration Sodium Chloride 10 ml 04/24/17 23:28 04/25/17 02:29 Normal Saline Flush 0.9% IVP 10 ml PRN PRN Administration NEEDED PER PROVIDER ORDERS Spironolactone 25 mg 04/25/17 09:00 04/26/17 09:38 Aldactone PO 25 mg DAILY ADALBERTO Administration Venlafaxine HCl 150 mg 04/25/17 09:00 04/26/17 09:39 Effexor Er PO 150 mg DAILY ADALBERTO Administration - Lab Result Fish Bone Diagrams: 04/26/17 01:42 04/26/17 01:42 - Additional Planning My Orders: My Active Orders 04/26/17 10:00 Insulin Glargine [Lantus Solostar] 20 unit SUBQ QDBREAKFAST Insulin Glargine [Lantus Solostar] 20 unit SUBQ QPM 04/26/17 10:19 Activity Orders [RC] QSHIFT 04/26/17 13:17 Transfer [Admit \ Transfer \ Status] [RC] .ONCE Subjective - Subjective Patient Reports: Feeling Better, Resting Comfortably Objective Vital Signs: Vital Signs - 24 hr 09/3004/25/17 04/25/17 18:00 18:58 20:00 Temperature 36.9 C Heart Rate [ 80 80 81 Monitoring electrodes] Respiratory 20 13 15 Rate Blood Pressure Blood Pressure 131/66 H 120/67 130/73 [Right Brachial artery] O2 Saturation 100 100 97 04/25/17 04/25/17 04/25/17 20:14 21:00 22:00 Temperature Heart Rate [ 80 80 Monitoring electrodes] Respiratory 15 16 Rate Blood Pressure 130/73 Blood Pressure 123/75 103/71 [Right Brachial artery] O2 Saturation 100 100 04/25/17 04/26/17 04/26/17 23:00 00:00 01:00 Temperature 36.6 C Heart Rate [ 82 80 80 Monitoring electrodes] Respiratory 18 14 15 Rate Blood Pressure Blood Pressure 107/75 105/67 94/61 [Right Brachial artery] O2 Saturation 100 98 98 04/26/17 04/26/17 04/26/17 02:00 02:56 03:00 Temperature 36.6 C Heart Rate [ 80 80 Monitoring electrodes] Respiratory 14 20 Rate Blood Pressure Blood Pressure 112/66 131/69 H [Right Brachial artery] O2 Saturation 98 100 04/26/17 04/26/17 04/26/17 04:00 05:00 06:00 Temperature Heart Rate [ 80 80 80 Monitoring electrodes] Respiratory 16 13 13 Rate Blood Pressure Blood Pressure 111/63 98/68 93/58 L [Right Brachial artery] O2 Saturation 100 99 99 04/26/17 04/26/17 04/26/17 07:00 08:00 09:00 Temperature 37.1 C Heart Rate [ 80 80 80 Monitoring electrodes] Respiratory 13 20 14 Rate Blood Pressure Blood Pressure 111/70 129/66 115/70 [Right Brachial artery] O2 Saturation 100 100 100 04/26/17 04/26/17 04/26/17 09:38 10:00 11:00 Temperature Heart Rate [ 80 79 Monitoring electrodes] Respiratory 18 16 Rate Blood Pressure 115/70 Blood Pressure 115/70 115/70 [Right Brachial artery] O2 Saturation 100 100 04/26/17 04/26/17 04/26/17 12:00 13:00 14:00 Temperature 36.8 C Heart Rate [ 81 82 80 Monitoring electrodes] Respiratory 17 16 12 Rate Blood Pressure Blood Pressure 104/69 111/81 H 110/73 [Right Brachial artery] O2 Saturation 100 100 100 04/26/17 04/26/17 04/26/17 14:57 15:31 16:41 Temperature 37.1 C Heart Rate [ 80 88 81 Monitoring electrodes] Respiratory 12 14 14 Rate Blood Pressure Blood Pressure 114/77 120/74 118/75 [Right Brachial artery] O2 Saturation 100 100 100 Oxygen O2 Source Room air I&O (Last 24 Hrs): Intake and Output Totals x24h 04/24/17 04/25/17 04/26/17 23:59 23:59 23:59 Intake Total 100 6826.083 4271.25 Output Total 2300 1700 Balance 100 4526.083 2571.25 General: Alert, Oriented x3 HEENT: Mucous membr. moist/pink Neck: Supple Neuro: Alert Cardiovascular: Regular rate, No murmurs Respiratory: No respiratory distress Abdomen: Normal bowel sounds, Soft Extremities: No edema - Results Results: Laboratory Results WBC 5.0 x10^3/uL (4.8-10.8) 04/26/17 01:42 RBC 4.50 10^6/uL (4.20-5.40) 04/26/17 01:42 Hgb 13.4 g/dL (12.0-16.0) 04/26/17 01:42 Hct 41.4 % (37.0-47.0) 04/26/17 01:42 MCV 91.9 fL (81.0-99.0) 04/26/17 01:42 MCH 29.7 pg (27.0-31.0) 04/26/17 01:42 MCHC 32.3 g/dL (32.0-36.0) 04/26/17 01:42 RDW 15.9 % (12.0-15.0) H 04/26/17 01:42 Plt Count 203 10^3/uL (130-450) 04/26/17 01:42 MPV 8.3 fL (7.9-10.8) 04/26/17 01:42 Neut # 2.8 10^3/uL (1.5-6.6) 04/26/17 01:42 Lymph # 1.5 10^3/uL (1.5-3.5) 04/26/17 01:42 [place] # 0.5 10^3/uL (0.0-1.0) 04/26/17 01:42 Eos # 0.2 10^3/uL (0.0-0.7) 04/26/17 01:42 Baso # 0.1 10^3/uL (0.0-0.1) 04/26/17 01:42 Absolute Nucleated RBC 0.00 x10^3/uL 04/26/17 01:42 Nucleated RBC % 0.0 /100WBC 04/26/17 01:42 Platelet Estimate NORMAL (130-450,000) (NORMAL) 04/25/17 05:15 PT 11.5 secs (9.9-12.6) 04/25/17 05:15 INR 1.0 (0.8-1.2) 04/25/17 05:15 VBG pH 7.345 (7.31-7.41) 04/25/17 05:15 VBG pCO2 30.0 mmHg (41-51) L 04/25/17 00:00 VBG pO2 84.2 mmHg (25-47) H 04/25/17 00:00 VBG HCO3 14.6 mmol/L (23-28) L 04/25/17 00:00 VBG Total CO2 15.5 mmol/L (24-29) L 04/25/17 00:00 VBG O2 Saturation 96.0 % (60-80) H 04/25/17 00:00 VBG Base Excess -10.4 mmol/L (-2 - +2) L 04/25/17 00:00 Ionized Calcium 1.08 mmol/L (1.15-1.33) L 04/25/17 05:15 Sodium 140 mmol/L (135-145) 04/26/17 01:42 Potassium 3.3 mmol/L (3.5-5.0) L 04/26/17 01:42 Chloride 106 mmol/L (101-111) 04/26/17 01:42 Carbon Dioxide 24 mmol/L (21-32) 04/26/17 01:42 Anion Gap 10.0 (6-13) 04/26/17 01:42 BUN 12 mg/dL (6-20) 04/26/17 01:42 Creatinine 0.8 mg/dL (0.4-1.0) 04/26/17 01:42 Estimated GFR (MDRD) 80 (>89) L 04/26/17 01:42 Glucose 74 mg/dL (70-100) 04/26/17 01:42 POC Whole Bld Glucose 128 mg/dL (70 - 100) H 04/26/17 16:34 Glycated Hemoglobin 10.7 % (4.6-6.2) H 04/25/17 00:00 Estim Average Glucose 260 (70-100) H 04/25/17 00:00 Calcium 8.4 mg/dL (8.5-10.3) L 04/26/17 01:42 Ionized Calcium NO 04/26/17 01:42 Phosphorus 4.5 mg/dL (2.5-4.6) 04/26/17 01:42 Magnesium 1.9 mg/dL (1.7-2.8) 04/26/17 01:42 Total Bilirubin 0.6 mg/dL (0.2-1.0) 04/26/17 01:42 AST 45 IU/L (10-42) H 04/26/17 01:42 ALT 17 IU/L (10-60) 04/26/17 01:42 Alkaline Phosphatase 117 IU/L (42-121) 04/26/17 01:42 Troponin I < 0.04 ng/mL (<0.49) 04/25/17 05:15 Total Protein 7.4 g/dL (6.7-8.2) 04/26/17 01:42 Albumin 3.5 g/dL (3.2-5.5) 04/26/17 01:42 Globulin 3.9 g/dL (2.1-4.2) 04/26/17 01:42 Albumin/Globulin Ratio 0.9 (1.0-2.2) L 04/26/17 01:42 Lipase 16 U/L (22-51) L 04/24/17 22:08 Urine Color YELLOW 04/24/17 23:00 Urine Clarity CLEAR (CLEAR) 04/24/17 23:00 Urine pH 6.0 PH (5.0-7.5) 04/24/17 23:00 Ur Specific [place] 1.020 (1.002-1.030) 04/24/17 23:00 Urine Protein NEGATIVE mg/dL (NEGATIVE) 04/24/17 23:00 Urine Glucose (UA) >=1000 mg/dL (NEGATIVE) H 04/24/17 23:00 Urine Ketones >=80 mg/dL (NEGATIVE) H 04/24/17 23:00 Urine Occult Blood TRACE-INTA (NEGATIVE) 04/24/17 23:00 Urine Nitrite NEGATIVE (NEGATIVE) 04/24/17 23:00 Urine Bilirubin NEGATIVE (NEGATIVE) 04/24/17 23:00 Urine Urobilinogen 0.2 (NORMAL) E.U./dL (NORMAL) 04/24/17 23:00 Ur Leukocyte Esterase NEGATIVE (NEGATIVE) 04/24/17 23:00 Ur Microscopic Review NOT INDICATED 04/24/17 23:00 Urine Culture Comments NOT INDICATED 04/24/17 23:00 Last Dose Date 04-25-17 04/26/17 01:42 Last Dose Time 1000 04/26/17 01:42 Vancomycin Trough 17.7 ug/mL (5.0-15.0) H 04/26/17 01:42 Serum Ketones SMALL (NEGATIVE) H 04/25/17 03:00 - Procedures Procedures: Procedures ENDO EXCISION/DEST OF LESION OR TISSUE OF STOMACH (03/30/14) ENDOSC POLYPECTOMY OF LG INTEST (03/30/14) INSERTION OF INFUSION DEV INTO SUP VENA CAVA, PERC APPROACH (10/01/16)
[2017-04-26] MEDS: AMITRIPTYLINE 25 MG TABLET PO SCH (20:08)
[2017-04-26] MEDS: ATORVASTATIN 40 MG TABLET PO SCH (20:08)
[2017-04-26] MEDS ORDERED: CALCIUM GLUCONATE 1,000 MG in SODIUM CHLORIDE 0.9% 50 ML IV SCH (20:45)
[2017-04-26 21:12] LABS: CALCIUM 8.2 mg/dL (8.5-10.3); CREATININE 0.8 mg/dL (0.4-1.0); MAGNESIUM 1.6 mg/dL (1.7-2.8); POTASSIUM 4.3 mmol/L (3.5-5.0)
[2017-04-26] MEDS ORDERED: MAGNESIUM SULFATE 2 GM in SODIUM CHLORIDE 0.9% 50 ML IV ONE (22:40)
[2017-04-26] MEDS ORDERED: MAGNESIUM SULFATE 2 GRAM 2 GM/50 ML BAG IV SCH (23:00)
[2017-04-27] MEDS: HYDROmorphone 1 MG/ML SYRINGE IVP PRN ×9 (00:32→22:14)
[2017-04-27] MEDS: HYDROmorphone 2 MG TABLET PO SCH ×3 (01:30→14:49)
[2017-04-27] MEDS: VANCOMYCIN INJ 1 GM in SODIUM CHLORIDE 0.9% 250 ML IV SCH ×3 (02:05→17:47)
[2017-04-27] MEDS: SODIUM CHLORIDE FLUSH 0.9% 10 ML SYRINGE IVP SCH ×3 (05:25→22:19)
[2017-04-27] MEDS: NYSTATIN CREAM 15 GM TUBE TOP SCH ×3 (05:25→20:17)
[2017-04-27 06:18] LABS: EOSINOPHILS # (AUTO) 0.1 10^3/uL (0.0-0.7); EOSINOPHILS % (AUTO) 1.7 %; HCT - HEMATOCRIT 42.8 % (37.0-47.0); HGB - HEMOGLOBIN 13.9 g/dL (12.0-16.0); LYMPHOCYTES % (AUTO) 24.3 %; MEAN CORPUSCULAR HEMOGLOBIN 30.2 pg (27.0-31.0); MEAN CORPUSCULAR HGB CONC 32.4 g/dL (32.0-36.0); MEAN PLATELET VOLUME 8.3 fL (7.9-10.8); MONOCYTES # (AUTO) 0.3 10^3/uL (0.0-1.0); MONOCYTES % (AUTO) 8.1 %; NEUTROPHILS # (AUTO) 2.8 10^3/uL (1.5-6.6); NEUTROPHILS % (AUTO) 64.9 %; NUCLEATED RED BLOOD CELLS AUTO 0.2 /100WBC; UNCORRECTED WHITE BLOOD COUNT 4.3 x10^3/uL; WHITE BLOOD COUNT 4.3 x10^3/uL (4.8-10.8)
[2017-04-27 06:35] LABS: ALBUMIN/GLOBULIN RATIO 0.8 (1.0-2.2); BILIRUBIN,TOTAL 0.8 mg/dL (0.2-1.0); CALCIUM 8.5 mg/dL (8.5-10.3); CREATININE 0.6 mg/dL (0.4-1.0); MAGNESIUM 2.2 mg/dL (1.7-2.8); PHOSPHORUS 4.1 mg/dL (2.5-4.6); POTASSIUM 3.8 mmol/L (3.5-5.0); TOTAL PROTEIN 7.2 g/dL (6.7-8.2)
[2017-04-27 06:37] LABS: CALCIUM 8.2 mg/dL (8.5-10.3)
[2017-04-27 06:59] LABS: CALCIUM, IONIZED 1.13 mmol/L (1.15-1.33); VBG PH 7.299 (7.31-7.41)
[2017-04-27] MEDS: SODIUM CHLORIDE 0.9% 1,000 ML IV SCH (07:47)
[2017-04-27] MEDS: INSULIN GLARGINE 300 UNIT/3 ML PEN SUBQ SCH ×2 (07:52→22:16)
[2017-04-27] MEDS: FAMOTIDINE 20 MG TABLET PO SCH (09:05)
[2017-04-27] MEDS: INSULIN ASPART 300 UNIT/3 ML PEN SUBQ SCH ×5 (09:05→22:15)
[2017-04-27] MEDS: LEVOTHYROXINE 100 MCG TABLET PO SCH (09:05)
[2017-04-27] MEDS: LISINOPRIL 20 MG TABLET PO SCH (09:05)
[2017-04-27] MEDS: VENLAFAXINE ER 75 MG CAPSULE PO SCH (09:05)
[2017-04-27] MEDS: METOPROLOL TARTRATE 50 MG TABLET PO SCH ×2 (09:05→20:12)
[2017-04-27] MEDS: SPIRONOLACTONE 25 MG TABLET PO SCH (09:05)
[2017-04-27] MEDS: ENOXAPARIN 40 MG/0.4 ML SYRINGE SUBQ SCH (09:06)
[2017-04-27] MEDS: FUROSEMIDE 40 MG TABLET PO SCH (09:17)
[2017-04-27] MEDS ORDERED: IOPAMIDOL-300 100 ML VIAL ONE (11:16)
[2017-04-27] MEDS ORDERED: IOPAMIDOL-300 50 ML VIAL ONE (11:18)
[2017-04-27] MEDS ORDERED: IOPAMIDOL-300 100 ML VIAL IVP ONE (13:11)
[2017-04-27] MEDS ORDERED: IOPAMIDOL-300 50 ML VIAL PO ONE (13:12)
--- NOTE | 2017-04-27 15:39 | CT Report ---
CT ABDOMEN AND PELVIS WITH CONTRAST: 04/27/2017 CLINICAL INDICATION: Right-sided pain, elevated LFTs. TECHNIQUE: Axial CT images of the abdomen and pelvis were obtained prior to and following 100 mL Iso tree-300 intravenously. Oral contrast was also administered. In accordance with CT protocol optimization, one or more of the following dose reduction techniques w ere utilized for this exam: automated exposure control, adjustment of mA and/or KV based on patient size, or use of iterative reconstructive technique. COMPARISON: 09/21/2016 FINDINGS: Limited evaluation of the lung bases demonstrates a trace left effusion and basilar atelec tasis. Recent sternotomy changes are noted. Abdomen: Postoperative changes of cholecystectomy are present. There is a small fluid collection at the inferior posterior liver margin, measuring 2.2 x 1.4 x 1.5 cm, compatible with a small abscess. Previously seen inflammatory changes around the right kidney have resolved. The left kidney is unre markable. The pancreas, spleen, and adrenal glands are unremarkable. No bowel dilatation, free gas, or free fluid is present. No abdominal adenopathy is seen. Pelvis: The uterus is heterogeneous, likely representing leiomyomas. A left ovarian follicle is inc identally noted. No free fluid or pelvic adenopathy is appreciated. Osseous structures are unremarkable. IMPRESSION: TINY FLUID COLLECTION AT THE POSTERIOR INFERIOR LIVER MARGIN, SUSPICIOUS FOR A SMALL ABS CESS. NO EVIDENCE OF INTRAHEPATIC MASS. POSTOPERATIVE CHANGES OF CHOLECYSTECTOMY. JOB #: [id number] EXT JOB #:[id number]
[2017-04-27] MEDS: SODIUM CHLORIDE FLUSH 0.9% 10 ML SYRINGE IVP PRN ×2 (16:21→23:58)
--- NOTE | 2017-04-27 17:47 | PROVIDER PROGRESS NOTE ---
Assessment/Plan - Problem List (1) Abdominal pain Assessment/Plan: I will request records of the admission at [facility] when Pt describes having a "cyst near her liver drained". Concern that her LFTs have increased since yesterday. Will obtain CT of abdomen. (2) DKA (diabetic ketoacidoses) Qualifiers: Diabetes mellitus type: type 1 Diabetes mellitus complication detail: without coma Qualified Code(s): E10.10 - Type 1 diabetes mellitus with ketoacidosis without coma Assessment/Plan: Resolved. Insulin SS to be adjusted for more stable fingersticks. (3) Wound infection after surgery Qualifiers: Encounter type: subsequent encounter Qualified Code(s): T81.4XXD - Infection following a procedure, subsequent encounter Assessment/Plan: Wound RN to visualize sternum today. Care as per her guidance. (4) Pacemaker complications Assessment/Plan: No issues with current unit, as per telemetry monitoring. - Current Meds Current Meds: Current Medications Generic Name Dose Route Start Last Admin Trade Name Freq PRN Reason Stop Dose Admin Amitriptyline HCl 50 mg 04/25/17 21:00 04/26/17 20:08 Elavil PO 50 mg QPM ADALBERTO Administration Enoxaparin Sodium 40 mg 04/25/17 09:00 04/27/17 09:06 Lovenox SUBQ 40 mg DAILY ADALBERTO Administration Famotidine 20 mg 04/25/17 09:00 04/27/17 09:05 Pepcid PO 20 mg DAILY ADALBERTO Administration Furosemide 80 mg 04/25/17 09:00 04/27/17 09:17 Lasix PO 80 mg DAILY ADALBERTO Administration Vancomycin HCl 1 gm/ Sodium 250 mls @ 167 mls/hr 04/25/17 10:00 04/27/17 10: 51 Chloride IV Infused Q8H ADALBERTO Infusion Sodium Chloride 1,000 mls @ 75 mls/hr 04/25/17 21:09 04/27/17 07:47 Normal Saline 0.9% IV 75 mls/hr .[id number] ADALBERTO Administration Insulin Aspart 5 unit 04/27/17 13:00 04/27/17 13:02 Novolog SUBQ Not Given TIDWM ADALBERTO Insulin Glargine 20 unit 04/26/17 10:00 04/26/17 21:11 Lantus Solostar SUBQ 20 unit QPM ADALBERTO Administration Insulin Glargine 20 unit 04/26/17 10:00 04/27/17 07:52 Lantus Solostar SUBQ 20 unit QDBREAKFAST ADALBERTO Administration Levothyroxine Sodium 250 mcg 04/25/17 09:00 04/27/17 09:05 Synthroid PO 250 mcg DAILY ADALBERTO Administration Lisinopril 20 mg 04/25/17 09:00 04/27/17 09:05 Zestril PO 20 mg DAILY ADALBERTO Administration Metoprolol Tartrate 50 mg 04/25/17 09:00 04/27/17 09:05 Lopressor PO 50 mg BID ADALBERTO Administration Nystatin 1 applic 04/27/17 03:00 04/27/17 09:09 Mycostatin Cream TOP 1 applic BID ADALBERTO Administration Ondansetron HCl 4 mg 04/24/17 23:28 04/25/17 01:16 Zofran Inj IVP 4 mg Q6HR PRN Administration Nausea / Vomiting Sodium Chloride 10 ml 04/25/17 06:00 04/27/17 13:24 Normal Saline Flush 0.9% IVP 10 ml Q8HR ADALBERTO Administration Sodium Chloride 10 ml 04/24/17 23:28 04/27/17 16:21 Normal Saline Flush 0.9% IVP 10 ml PRN PRN Administration NEEDED PER PROVIDER ORDERS Spironolactone 25 mg 04/25/17 09:00 04/27/17 09:05 Aldactone PO 25 mg DAILY ADALBERTO Administration Venlafaxine HCl 150 mg 04/25/17 09:00 04/27/17 09:05 Effexor Er PO 150 mg DAILY ADALBERTO Administration - Lab Result Fish Bone Diagrams: 04/27/17 05:56 04/27/17 05:56 - Additional Planning My Orders: My Active Orders 04/27/17 12:41 Blood Glucose Checks - Eating [RC] 0800,1200,1700,2100 Initiate Hypoglycemia Protocol [RC] .protocol 04/27/17 13:00 Insulin Aspart [NovoLOG] 5 unit SUBQ TIDWM 04/27/17 17:00 Insulin Aspart [NovoLOG] 1 - 9 unit SUBQ 0800,1200,1700,2100 04/27/17 17:43 HYDROmorphone INJ SYRINGE [Dilaudid Inj Syringe] 1 mg IVP Q4H PRN HYDROmorphone [Dilaudid] 4 mg PO Q6H Subjective - Subjective Patient Reports: Other (New right sided abdominal pain, 4/10 with movement or palpation, no vomiting, "like the pain when she had abd abcsess".) Nursing Reports: No Complaints Objective Vital Signs: Vital Signs - 24 hr 04/26/17 04/26/17 04/26/17 17:56 19:00 20:42 Temperature 36.8 C 36.7 C 36.7 C Heart Rate [ 80 Brachial] Heart Rate [ 80 80 Monitoring electrodes] Respiratory 17 16 18 Rate Blood Pressure 123/76 119/76 122/67 [Right Brachial artery] O2 Saturation 100 98 98 04/27/17 04/27/17 04/27/17 00:18 05:45 07:43 Temperature 36.4 C L 36.5 C 36.9 C Heart Rate [ 80 82 78 Brachial] Heart Rate [ Monitoring electrodes] Respiratory 16 16 16 Rate Blood Pressure 107/72 120/68 116/70 [Right Brachial artery] O2 Saturation 100 99 99 04/27/17 04/27/17 12:38 16:30 Temperature 36.5 C 37.0 C Heart Rate [ 80 80 Brachial] Heart Rate [ Monitoring electrodes] Respiratory 18 16 Rate Blood Pressure 104/77 104/58 L [Right Brachial artery] O2 Saturation 97 96 Oxygen O2 Source Room air I&O (Last 24 Hrs): Intake and Output Totals x24h 04/25/17 04/26/17 04/27/17 23:59 23:59 23:59 Intake Total 6826.083 5858.75 1796.25 Output Total 2300 1700 Balance 4526.083 4158.75 1796.25 General: Alert HEENT: Mucous membr. moist/pink Neck: Supple Neuro: Alert Cardiovascular: Regular rate, No murmurs Respiratory: No respiratory distress Abdomen: Soft, Other (Tender to moderate palpation RUQ and RLQ, no rebound or guarding. Decreased BS.) - Results Results: Laboratory Results WBC 4.3 x10^3/uL (4.8-10.8) L 04/27/17 05:56 RBC 4.60 10^6/uL (4.20-5.40) 04/27/17 05:56 Hgb 13.9 g/dL (12.0-16.0) 04/27/17 05:56 Hct 42.8 % (37.0-47.0) 04/27/17 05:56 MCV 93.0 fL (81.0-99.0) 04/27/17 05:56 MCH 30.2 pg (27.0-31.0) 04/27/17 05:56 MCHC 32.4 g/dL (32.0-36.0) 04/27/17 05:56 RDW 16.0 % (12.0-15.0) H 04/27/17 05:56 Plt Count 178 10^3/uL (130-450) 04/27/17 05:56 MPV 8.3 fL (7.9-10.8) 04/27/17 05:56 Neut # 2.8 10^3/uL (1.5-6.6) 04/27/17 05:56 Lymph # 1.0 10^3/uL (1.5-3.5) L 04/27/17 05:56 [place] # 0.3 10^3/uL (0.0-1.0) 04/27/17 05:56 Eos # 0.1 10^3/uL (0.0-0.7) 04/27/17 05:56 Baso # 0.0 10^3/uL (0.0-0.1) 04/27/17 05:56 Absolute Nucleated RBC 0.01 x10^3/uL 04/27/17 05:56 Nucleated RBC % 0.2 /100WBC 04/27/17 05:56 Platelet Estimate NORMAL (130-450,000) (NORMAL) 04/25/17 05:15 PT 11.5 secs (9.9-12.6) 04/25/17 05:15 INR 1.0 (0.8-1.2) 04/25/17 05:15 VBG pH 7.299 (7.31-7.41) L 04/27/17 05:56 VBG pCO2 30.0 mmHg (41-51) L 04/25/17 00:00 VBG pO2 84.2 mmHg (25-47) H 04/25/17 00:00 VBG HCO3 14.6 mmol/L (23-28) L 04/25/17 00:00 VBG Total CO2 15.5 mmol/L (24-29) L 04/25/17 00:00 VBG O2 Saturation 96.0 % (60-80) H 04/25/17 00:00 VBG Base Excess -10.4 mmol/L (-2 - +2) L 04/25/17 00:00 Ionized Calcium 1.13 mmol/L (1.15-1.33) L 04/27/17 05:56 Sodium 137 mmol/L (135-145) 04/27/17 05:56 Potassium 3.8 mmol/L (3.5-5.0) 04/27/17 05:56 Chloride 104 mmol/L (101-111) 04/27/17 05:56 Carbon Dioxide 25 mmol/L (21-32) 04/27/17 05:56 Anion Gap 8.0 (6-13) 04/27/17 05:56 BUN 13 mg/dL (6-20) 04/27/17 05:56 Creatinine 0.6 mg/dL (0.4-1.0) 04/27/17 05:56 Estimated GFR (MDRD) 112 (>89) 04/27/17 05:56 Glucose 90 mg/dL (70-100) 04/27/17 05:56 POC Whole Bld Glucose 189 mg/dL (70 - 100) H 04/27/17 16:27 Glycated Hemoglobin 10.7 % (4.6-6.2) H 04/25/17 00:00 Estim Average Glucose 260 (70-100) H 04/25/17 00:00 Calcium 8.5 mg/dL (8.5-10.3) 04/27/17 05:56 Ionized Calcium YES 04/27/17 05:56 Phosphorus 4.1 mg/dL (2.5-4.6) 04/27/17 05:56 Magnesium 2.2 mg/dL (1.7-2.8) 04/27/17 05:56 Total Bilirubin 0.8 mg/dL (0.2-1.0) 04/27/17 05:56 AST 191 IU/L (10-42) H 04/27/17 05:56 ALT 67 IU/L (10-60) H 04/27/17 05:56 Alkaline Phosphatase 159 IU/L (42-121) H 04/27/17 05:56 Troponin I < 0.04 ng/mL (<0.49) 04/25/17 05:15 Total Protein 7.2 g/dL (6.7-8.2) 04/27/17 05:56 Albumin 3.2 g/dL (3.2-5.5) 04/27/17 05:56 Globulin 4.0 g/dL (2.1-4.2) 04/27/17 05:56 Albumin/Globulin Ratio 0.8 (1.0-2.2) L 04/27/17 05:56 Lipase 16 U/L (22-51) L 04/24/17 22:08 Urine Color YELLOW 04/24/17 23:00 Urine Clarity CLEAR (CLEAR) 04/24/17 23:00 Urine pH 6.0 PH (5.0-7.5) 04/24/17 23:00 Ur Specific [place] 1.020 (1.002-1.030) 04/24/17 23:00 Urine Protein NEGATIVE mg/dL (NEGATIVE) 04/24/17 23:00 Urine Glucose (UA) >=1000 mg/dL (NEGATIVE) H 04/24/17 23:00 Urine Ketones >=80 mg/dL (NEGATIVE) H 04/24/17 23:00 Urine Occult Blood TRACE-INTA (NEGATIVE) 04/24/17 23:00 Urine Nitrite NEGATIVE (NEGATIVE) 04/24/17 23:00 Urine Bilirubin NEGATIVE (NEGATIVE) 04/24/17 23:00 Urine Urobilinogen 0.2 (NORMAL) E.U./dL (NORMAL) 04/24/17 23:00 Ur Leukocyte Esterase NEGATIVE (NEGATIVE) 04/24/17 23:00 Ur Microscopic Review NOT INDICATED 04/24/17 23:00 Urine Culture Comments NOT INDICATED 04/24/17 23:00 Last Dose Date 04-25-17 04/26/17 01:42 Last Dose Time 1000 04/26/17 01:42 Vancomycin Trough 17.7 ug/mL (5.0-15.0) H 04/26/17 01:42 Serum Ketones SMALL (NEGATIVE) H 04/25/17 03:00 - Procedures Procedures: Procedures ENDO EXCISION/DEST OF LESION OR TISSUE OF STOMACH (03/30/14) ENDOSC POLYPECTOMY OF LG INTEST (03/30/14) INSERTION OF INFUSION DEV INTO SUP VENA CAVA, PERC APPROACH (10/01/16)
[2017-04-27] MEDS ORDERED: HYDROmorphone 2 MG TABLET PO SCH (18:00)
[2017-04-27] MEDS: AMITRIPTYLINE 25 MG TABLET PO SCH (20:12)
[2017-04-27] MEDS: LORazepam 0.5 MG TABLET PO PRN (22:13)
[2017-04-28] MEDS: VANCOMYCIN INJ 1 GM in SODIUM CHLORIDE 0.9% 250 ML IV SCH ×3 (02:03→18:18)
[2017-04-28] MEDS: SODIUM CHLORIDE 0.9% 1,000 ML IV SCH ×3 (02:05→18:14)
[2017-04-28] MEDS: HYDROmorphone 2 MG TABLET PO SCH ×5 (02:14→19:27)
[2017-04-28] MEDS: HYDROmorphone 1 MG/ML SYRINGE IVP PRN ×2 (03:34→16:10)
[2017-04-28] MEDS ORDERED: SODIUM CHLORIDE FLUSH 0.9% 10 ML SYRINGE IVP PRN (05:36)
[2017-04-28] MEDS: SODIUM CHLORIDE FLUSH 0.9% 10 ML SYRINGE IVP SCH ×3 (05:54→21:28)
[2017-04-28 06:30] LABS: BASOPHILS % (AUTO) 1.2 %; EOSINOPHILS # (AUTO) 0.1 10^3/uL (0.0-0.7); EOSINOPHILS % (AUTO) 2.6 %; HCT - HEMATOCRIT 38.8 % (37.0-47.0); HGB - HEMOGLOBIN 12.4 g/dL (12.0-16.0); LYMPHOCYTES # (AUTO) 1.1 10^3/uL (1.5-3.5); LYMPHOCYTES % (AUTO) 30.9 %; MEAN CORPUSCULAR HEMOGLOBIN 29.5 pg (27.0-31.0); MEAN CORPUSCULAR VOLUME 92.2 fL (81.0-99.0); MEAN PLATELET VOLUME 8.3 fL (7.9-10.8); MONOCYTES # (AUTO) 0.3 10^3/uL (0.0-1.0); MONOCYTES % (AUTO) 7.5 %; NEUTROPHILS % (AUTO) 57.8 %; RED BLOOD COUNT 4.21 10^6/uL (4.20-5.40); RED CELL DISTRIBUTION WIDTH 15.8 % (12.0-15.0); UNCORRECTED WHITE BLOOD COUNT 3.5 x10^3/uL; WHITE BLOOD COUNT 3.5 x10^3/uL (4.8-10.8)
[2017-04-28 06:57] LABS: ALBUMIN/GLOBULIN RATIO 0.8 (1.0-2.2); BILIRUBIN,TOTAL 0.5 mg/dL (0.2-1.0); CALCIUM 8.2 mg/dL (8.5-10.3); CREATININE 0.6 mg/dL (0.4-1.0); MAGNESIUM 1.6 mg/dL (1.7-2.8); TOTAL PROTEIN 5.9 g/dL (6.7-8.2)
[2017-04-28] MEDS: INSULIN ASPART 300 UNIT/3 ML PEN SUBQ SCH ×7 (07:53→21:29)
[2017-04-28] MEDS: INSULIN GLARGINE 300 UNIT/3 ML PEN SUBQ SCH ×2 (07:54→21:31)
[2017-04-28] MEDS: FAMOTIDINE 20 MG TABLET PO SCH (08:52)
[2017-04-28] MEDS: KETOROLAC 30 MG/ML VIAL IVP SCH ×2 (08:52→21:24)
[2017-04-28] MEDS: FUROSEMIDE 40 MG TABLET PO SCH (08:53)
[2017-04-28] MEDS: LEVOTHYROXINE 100 MCG TABLET PO SCH (08:53)
[2017-04-28] MEDS: LISINOPRIL 20 MG TABLET PO SCH (08:53)
[2017-04-28] MEDS: VENLAFAXINE ER 75 MG CAPSULE PO SCH (08:53)
[2017-04-28] MEDS: METOPROLOL TARTRATE 50 MG TABLET PO SCH ×2 (08:53→21:24)
[2017-04-28] MEDS: SPIRONOLACTONE 25 MG TABLET PO SCH (08:53)
[2017-04-28] MEDS: ENOXAPARIN 40 MG/0.4 ML SYRINGE SUBQ SCH (09:03)
[2017-04-28] MEDS: NYSTATIN CREAM 15 GM TUBE TOP SCH ×2 (09:03→21:24)
[2017-04-28] MEDS: CHOLECALCIFEROL 1,000 UNIT TABLET PO SCH (11:33)
[2017-04-28] MEDS: MULTIVITAMIN TABLET PO SCH (11:33)
--- NOTE | 2017-04-28 14:33 | CONSULTATION NOTE ---
DATE OF CONSULTATION: 04/27/2017 00:00:00 REQUESTING PROVIDER: Lexie Mahoney MD. INDICATION FOR CONSULTATION: Abdominal abscess. HISTORY OF PRESENT ILLNESS: This is a 36-year-old female with complicated medical history including uncontrolled diabetes, CHF, supraventricular tachycardia, status post ablation, leading to a complete heart block resulting in pacemaker placement. She had undergone multiple pacemaker placements, which became infected and had to be removed and replaced several times. After placement of one of the pacemakers, she developed an intraabdominal abscess and was treated at [facility] for such. The patient states that the abscess was located on her right kidney and was drained. Following removal of this drain, she also developed an abscess near her liver, which was also drained. She states that she has been off of antibiotics for several weeks. The patient was recently readmitted to [facility] for DKA and a possible sternal wound infection. She is complaining of some vague abdominal pain and a CT scan of the abdomen and pelvis was performed. This is demonstrating a 2.2 x 1.4 x 1.5 cm collection in the posterior inferior aspect of the liver margin abutting the kidney, which is compatible with a small abscess. For this reason, a surgical consultation was obtained. Upon my evaluation of the patient, she is resting in bed comfortably. She does complain of very mild low pelvic pain and also complains of back pain, but she states that this is chronic for her. She denies any nausea or vomiting. She denies any fevers or chills. She is otherwise resting comfortably and tolerating a regular diet. 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 PAST SURGICAL HISTORY: Cholecystectomy, appendectomy, hiatal hernia repair, and multiple abdominal abscesses and drainage by interventional radiology. HOME MEDICATIONS 1. Atorvastatin. 2. Lantus. 3. Levothyroxine. 4. Ativan. 5. Insulin. 6. Elavil. 7. Protonix. 8. Venlafaxine. 9. Cyclobenzaprine. 10. Lisinopril. 11. Metoprolol. 12. Doxycycline. 13. Lasix. 14. Dilaudid. 15. Mupirocin. 16. Spironolactone. ALLERGIES TO MEDICATIONS 1. BACTRIM. 2. ADHESIVE. 3. AMOXICILLIN. 4. OXYCODONE. 5. PROMETHAZINE. VITAL SIGNS: Temperature 36.5, blood pressure 109/62, respiratory rate 16, O2 100% on room air. Heart rate is 80. PHYSICAL EXAMINATION GENERAL: The patient is awake, alert, oriented x3, in no acute distress. She is obese. CARDIOVASCULAR: Regular rate and rhythm. ABDOMEN: Soft and nondistended. She has slight tenderness to palpation in the pelvic region with no guarding, no rigidity. There is no right upper quadrant pain. She has slight costochondral tenderness on the right. EXTREMITIES: Nonedematous. LABORATORY VALUES: White count is 3.6, hemoglobin 12, hematocrit 38, platelets 145. Sodium 140, potassium 4.0, chloride 104, bicarbonate 30, BUN 13, creatinine 0.6, glucose is 120. ASSESSMENT: This is a 36-year-old female with a small retroperitoneal abscess. PLAN: As this abscess is quite small, I do not recommended any drainage at this time unless the patient develops fevers, chills, or worsening abdominal pain in RUQ. She should be treated with antibiotics and typically this size of abscess should resolve on its own. If failure of antibiotics, drainage by interventional radiology may be warranted. This would need to be performed at a center where this is available such as [facility], as this is where her previous procedure was performed. Once the patient is discharged from the hospital, she should be followed by her primary care provider and a followup CT scan ordered upon completion of antibiotics to ensure resolution of the abscess. JOB #: [id number] EXT JOB #:[id number]
[2017-04-28] MEDS: SODIUM CHLORIDE FLUSH 0.9% 10 ML SYRINGE IVP PRN (16:10)
--- NOTE | 2017-04-28 16:37 | PROVIDER PROGRESS NOTE ---
Assessment/Plan - Problem List (1) Abdominal pain Assessment/Plan: CT abdomen showed 2cm x 1.5cm x 1cm abscess near the liver Spoke with IR from [facility] who said that the abscess was not large enough to drain and risk of bleeding would outweigh benefit. They recommend treating with IV abx and if pain persists in 2-[address] to see if abscess has grown. Continue IV vancomycin day 5 (2) DKA (diabetic ketoacidoses) Qualifiers: Diabetes mellitus type: type 1 Diabetes mellitus complication detail: without coma Qualified Code(s): E10.10 - Type 1 diabetes mellitus with ketoacidosis without coma Assessment/Plan: Resolved. Insulin SS to be adjusted for more stable fingersticks. (3) Wound infection after surgery Qualifiers: Encounter type: subsequent encounter Qualified Code(s): T81.4XXD - Infection following a procedure, subsequent encounter Assessment/Plan: Wound RN following Care as per her guidance. Continue IV vancomycin day 5 (4) Pacemaker complications Assessment/Plan: No issues with current unit, as per telemetry monitoring. - Current Meds Current Meds: Current Medications Generic Name Dose Route Start Last Admin Trade Name Freq PRN Reason Stop Dose Admin Amitriptyline HCl 50 mg 04/25/17 21:00 04/27/17 20:12 Elavil PO 50 mg QPM ADALBERTO Administration Cholecalciferol 2,000 unit 04/28/17 11:00 04/28/17 11:33 Vitamin D3 PO 2,000 unit DAILY ADALBERTO Administration Enoxaparin Sodium 40 mg 04/25/17 09:00 04/28/17 09:03 Lovenox SUBQ 40 mg DAILY ADALBERTO Administration Famotidine 20 mg 04/25/17 09:00 04/28/17 08:52 Pepcid PO 20 mg DAILY ADALBERTO Administration Furosemide 80 mg 04/25/17 09:00 04/28/17 08:53 Lasix PO 80 mg DAILY ADALBERTO Administration Hydromorphone HCl 4 mg 04/28/17 11:00 04/28/17 15:21 Dilaudid PO 4 mg Q4H ADALBERTO Administration Hydromorphone HCl 1 mg 04/28/17 10:53 04/28/17 16:10 Dilaudid Inj Syringe IVP 1 mg Q8H PRN Administration PAIN Vancomycin HCl 1 gm/ Sodium 250 mls @ 167 mls/hr 04/25/17 10:00 04/28/17 12: 18 Chloride IV Infused Q8H ADALBERTO Infusion Sodium Chloride 1,000 mls @ 75 mls/hr 04/25/17 21:09 04/28/17 06:01 Normal Saline 0.9% IV Not Given .[id number] [facility] Insulin Aspart 5 unit 04/27/17 13:00 04/28/17 12:15 Novolog SUBQ Not Given TIDWM [facility] Insulin Aspart 1 - 9 unit 04/27/17 17:00 04/28/17 12:15 Novolog SUBQ Not Given 0800,1200,1700,2100 [facility] Protocol Insulin Glargine 20 unit 04/26/17 10:00 04/27/17 22:16 Lantus Solostar SUBQ 20 unit QPM ADALBERTO Administration Insulin Glargine 20 unit 04/26/17 10:00 04/28/17 07:54 Lantus Solostar SUBQ 20 unit QDBREAKFAST ADALBERTO Administration Ketorolac Tromethamine 30 mg 04/28/17 09:00 04/28/17 08:52 Toradol Inj IVP 05/03/17 08:59 30 mg BID ADALBERTO Administration Levothyroxine Sodium 250 mcg 04/25/17 09:00 04/28/17 08:53 Synthroid PO 250 mcg DAILY ADALBERTO Administration Lisinopril 20 mg 04/25/17 09:00 04/28/17 08:53 Zestril PO 20 mg DAILY ADALBERTO Administration Lorazepam 1 mg 04/24/17 23:24 04/27/17 22:13 Ativan PO 1 mg QPM PRN Administration Anxiety Metoprolol Tartrate 50 mg 04/25/17 09:00 04/28/17 08:53 Lopressor PO 50 mg BID ADALBERTO Administration Multivitamins 1 tab 04/28/17 11:00 04/28/17 11:33 Theragran PO 1 tab DAILYWM ADALBERTO Administration Nystatin 1 applic 04/27/17 03:00 04/28/17 09:03 Mycostatin Cream TOP 1 applic BID ADALBERTO Administration Ondansetron HCl 4 mg 04/24/17 23:28 04/25/17 01:16 Zofran Inj IVP 4 mg Q6HR PRN Administration Nausea / Vomiting Sodium Chloride 10 ml 04/25/17 06:00 04/28/17 13:34 Normal Saline Flush 0.9% IVP Not Given Q8HR ADALBERTO Sodium Chloride 10 ml 04/24/17 23:28 04/28/17 16:10 Normal Saline Flush 0.9% IVP 10 ml PRN PRN Administration NEEDED PER PROVIDER ORDERS Sodium Chloride 20 ml 04/28/17 05:36 04/28/17 05:58 Normal Saline Flush 0.9% IVP 20 ml PRN PRN Administration After Blood Draw Spironolactone 25 mg 04/25/17 09:00 04/28/17 08:53 Aldactone PO 25 mg DAILY ADALBERTO Administration Venlafaxine HCl 150 mg 04/25/17 09:00 04/28/17 08:53 Effexor Er PO 150 mg DAILY ADALBERTO Administration - Lab Result Lab results reviewed: Yes Fish Bone Diagrams: 04/28/17 06:25 04/28/17 06:25 - Diagnostic Imaging Results Diagnostic Imaging Results: Final report reviewed - Additional Planning Condition/Complexity: Guarded My Orders: My Active Orders 04/28/17 10:53 HYDROmorphone INJ SYRINGE [Dilaudid Inj Syringe] 1 mg IVP Q8H PRN 04/28/17 11:00 Cholecalciferol [Vitamin D3] 2,000 unit PO DAILY HYDROmorphone [Dilaudid] 4 mg PO Q4H Multivitamin [Theragran] 1 tab PO DAILYWM Plan Discussed with:: Patient Time Spent: 31-60 minutes Subjective - Subjective Patient Reports: Abdominal Pain (Complaining of abdominal pain, denies any nausea or vomiting. Denies any fevers or chills.) Nursing Reports: No Complaints Objective Vital Signs: Vital Signs - 24 hr 04/27/17 04/27/17 04/28/17 16:30 20:55 00:11 Temperature 37.0 C 36.9 C 36.7 C Heart Rate [ 80 80 81 Brachial] Respiratory 16 20 18 Rate Blood Pressure 98/57 L [Left Brachial artery] Blood Pressure 104/58 L 119/70 [Right Brachial artery] O2 Saturation 96 99 100 04/28/17 04/28/17 04/28/17 05:16 07:28 13:13 Temperature 36.6 C 36.6 C 36.5 C Heart Rate [ 80 80 80 Brachial] Respiratory 18 16 16 Rate Blood Pressure 96/62 108/62 [Left Brachial artery] Blood Pressure 109/62 [Right Brachial artery] O2 Saturation 98 98 100 04/28/17 15:51 Temperature 36.7 C Heart Rate [ 80 Brachial] Respiratory 20 Rate Blood Pressure 130/58 L [Left Brachial artery] Blood Pressure [Right Brachial artery] O2 Saturation 99 Oxygen O2 Source Room air I&O (Last 24 Hrs): Intake and Output Totals x24h 04/26/17 04/27/17 04/28/17 23:59 23:59 23:59 Intake Total 5858.75 2346.25 204 Output Total 1700 Balance 4158.75 2346.25 2039 General: Alert, Oriented x3, Cooperative, Mild distress (Pain) HEENT: Atraumatic, PERRLA, EOMI, Mucous membr. moist/pink Neck: Supple, No JVD, No thyromegaly, +2 carotid pulse wo bruit, No LAD Lymphatic: no adenopathy Neuro: Alert, Non Focal, CN 2-12 Grossly Intact, Oriented Times 3 Cardiovascular: Regular rate, Normal S1, Normal S2, No murmurs Respiratory: Chest non-tender, No respiratory distress, Breath sounds nml Abdomen: Soft, Other (Mild right upper quadrant tenderness, open wound with minimal drainage, foul smelling beneath sternum) Extremities: No clubbing, No cyanosis, No edema, Normal pulses Skin: No rashes, No breakdown Comments/Notes: Surgical wound as mentioned above. - Results Results: Laboratory Results WBC 3.5 x10^3/uL (4.8-10.8) L 04/28/17 06:25 RBC 4.21 10^6/uL (4.20-5.40) 04/28/17 06:25 Hgb 12.4 g/dL (12.0-16.0) 04/28/17 06:25 Hct 38.8 % (37.0-47.0) 04/28/17 06:25 MCV 92.2 fL (81.0-99.0) 04/28/17 06:25 MCH 29.5 pg (27.0-31.0) 04/28/17 06:25 MCHC 32.0 g/dL (32.0-36.0) 04/28/17 06:25 RDW 15.8 % (12.0-15.0) H 04/28/17 06:25 Plt Count 145 10^3/uL (130-450) 04/28/17 06:25 MPV 8.3 fL (7.9-10.8) 04/28/17 06:25 Neut # 2.0 10^3/uL (1.5-6.6) 04/28/17 06:25 Lymph # 1.1 10^3/uL (1.5-3.5) L 04/28/17 06:25 [place] # 0.3 10^3/uL (0.0-1.0) 04/28/17 06:25 Eos # 0.1 10^3/uL (0.0-0.7) 04/28/17 06:25 Baso # 0.0 10^3/uL (0.0-0.1) 04/28/17 06:25 Absolute Nucleated RBC 0.00 x10^3/uL 04/28/17 06:25 Nucleated RBC % 0.0 /100WBC 04/28/17 06:25 Platelet Estimate NORMAL (130-450,000) (NORMAL) 04/25/17 05:15 PT 11.5 secs (9.9-12.6) 04/25/17 05:15 INR 1.0 (0.8-1.2) 04/25/17 05:15 VBG pH 7.299 (7.31-7.41) L 04/27/17 05:56 VBG pCO2 30.0 mmHg (41-51) L 04/25/17 00:00 VBG pO2 84.2 mmHg (25-47) H 04/25/17 00:00 VBG HCO3 14.6 mmol/L (23-28) L 04/25/17 00:00 VBG Total CO2 15.5 mmol/L (24-29) L 04/25/17 00:00 VBG O2 Saturation 96.0 % (60-80) H 04/25/17 00:00 VBG Base Excess -10.4 mmol/L (-2 - +2) L 04/25/17 00:00 Ionized Calcium 1.13 mmol/L (1.15-1.33) L 04/27/17 05:56 Sodium 140 mmol/L (135-145) 04/28/17 06:25 Potassium 4.0 mmol/L (3.5-5.0) 04/28/17 06:25 Chloride 104 mmol/L (101-111) 04/28/17 06:25 Carbon Dioxide 30 mmol/L (21-32) 04/28/17 06:25 Anion Gap 6.0 (6-13) 04/28/17 06:25 BUN 13 mg/dL (6-20) 04/28/17 06:25 Creatinine 0.6 mg/dL (0.4-1.0) 04/28/17 06:25 Estimated GFR (MDRD) 112 (>89) 04/28/17 06:25 Glucose 120 mg/dL (70-100) H 04/28/17 06:25 POC Whole Bld Glucose 89 mg/dL (70 - 100) 04/28/17 11:14 Glycated Hemoglobin 10.7 % (4.6-6.2) H 04/25/17 00:00 Estim Average Glucose 260 (70-100) H 04/25/17 00:00 Calcium 8.2 mg/dL (8.5-10.3) L 04/28/17 06:25 Ionized Calcium YES 04/27/17 05:56 Phosphorus 4.1 mg/dL (2.5-4.6) 04/27/17 05:56 Magnesium 1.6 mg/dL (1.7-2.8) L 04/28/17 06:25 Total Bilirubin 0.5 mg/dL (0.2-1.0) 04/28/17 06:25 AST 128 IU/L (10-42) H 04/28/17 06:25 ALT 80 IU/L (10-60) H 04/28/17 06:25 Alkaline Phosphatase 161 IU/L (42-121) H 04/28/17 06:25 Troponin I < 0.04 ng/mL (<0.49) 04/25/17 05:15 Total Protein 5.9 g/dL (6.7-8.2) L 04/28/17 06:25 Albumin 2.7 g/dL (3.2-5.5) L 04/28/17 06:25 Globulin 3.2 g/dL (2.1-4.2) 04/28/17 06:25 Albumin/Globulin Ratio 0.8 (1.0-2.2) L 04/28/17 06:25 Lipase 16 U/L (22-51) L 04/24/17 22:08 Urine Color YELLOW 04/24/17 23:00 Urine Clarity CLEAR (CLEAR) 04/24/17 23:00 Urine pH 6.0 PH (5.0-7.5) 04/24/17 23:00 Ur Specific [place] 1.020 (1.002-1.030) 04/24/17 23:00 Urine Protein NEGATIVE mg/dL (NEGATIVE) 04/24/17 23:00 Urine Glucose (UA) >=1000 mg/dL (NEGATIVE) H 04/24/17 23:00 Urine Ketones >=80 mg/dL (NEGATIVE) H 04/24/17 23:00 Urine Occult Blood TRACE-INTA (NEGATIVE) 04/24/17 23:00 Urine Nitrite NEGATIVE (NEGATIVE) 04/24/17 23:00 Urine Bilirubin NEGATIVE (NEGATIVE) 04/24/17 23:00 Urine Urobilinogen 0.2 (NORMAL) E.U./dL (NORMAL) 04/24/17 23:00 Ur Leukocyte Esterase NEGATIVE (NEGATIVE) 04/24/17 23:00 Ur Microscopic Review NOT INDICATED 04/24/17 23:00 Urine Culture Comments NOT INDICATED 04/24/17 23:00 Last Dose Date 04-25-17 04/26/17 01:42 Last Dose Time 1000 04/26/17 01:42 Vancomycin Trough 17.7 ug/mL (5.0-15.0) H 04/26/17 01:42 Serum Ketones SMALL (NEGATIVE) H 04/25/17 03:00 - Procedures Procedures: Procedures ENDO EXCISION/DEST OF LESION OR TISSUE OF STOMACH (03/30/14) ENDOSC POLYPECTOMY OF LG INTEST (03/30/14) INSERTION OF INFUSION DEV INTO SUP VENA CAVA, PERC APPROACH (10/01/16)
[2017-04-28] MEDS: AMITRIPTYLINE 25 MG TABLET PO SCH (21:23)
[2017-04-29] MEDS: HYDROmorphone 1 MG/ML SYRINGE IVP PRN ×3 (00:03→16:14)
[2017-04-29] MEDS: HYDROmorphone 2 MG TABLET PO SCH ×6 (00:04→19:47)
[2017-04-29] MEDS: VANCOMYCIN INJ 1 GM in SODIUM CHLORIDE 0.9% 250 ML IV SCH ×3 (01:30→19:40)
[2017-04-29] MEDS: LORazepam 0.5 MG TABLET PO PRN ×2 (03:06→21:40)
[2017-04-29] MEDS: SODIUM CHLORIDE FLUSH 0.9% 10 ML SYRINGE IVP SCH ×3 (05:56→21:53)
[2017-04-29] MEDS: INSULIN ASPART 300 UNIT/3 ML PEN SUBQ SCH ×7 (08:04→21:50)
[2017-04-29] MEDS: INSULIN GLARGINE 300 UNIT/3 ML PEN SUBQ SCH ×2 (08:06→21:50)
[2017-04-29] MEDS: METOPROLOL TARTRATE 50 MG TABLET PO SCH ×2 (08:53→21:41)
[2017-04-29] MEDS: LEVOTHYROXINE 100 MCG TABLET PO SCH (08:53)
[2017-04-29] MEDS: SPIRONOLACTONE 25 MG TABLET PO SCH (08:54)
[2017-04-29] MEDS: MULTIVITAMIN TABLET PO SCH (08:54)
[2017-04-29] MEDS: VENLAFAXINE ER 75 MG CAPSULE PO SCH (08:54)
[2017-04-29] MEDS: CHOLECALCIFEROL 1,000 UNIT TABLET PO SCH (08:54)
[2017-04-29] MEDS: FUROSEMIDE 40 MG TABLET PO SCH (08:54)
[2017-04-29] MEDS: LISINOPRIL 20 MG TABLET PO SCH (08:55)
[2017-04-29] MEDS: FAMOTIDINE 20 MG TABLET PO SCH (08:55)
[2017-04-29] MEDS: NYSTATIN CREAM 15 GM TUBE TOP SCH ×2 (08:55→22:02)
[2017-04-29] MEDS: KETOROLAC 30 MG/ML VIAL IVP SCH ×2 (08:55→21:42)
[2017-04-29] MEDS: ENOXAPARIN 40 MG/0.4 ML SYRINGE SUBQ SCH (08:55)
[2017-04-29] MEDS: SODIUM CHLORIDE 0.9% 1,000 ML IV SCH (10:05)
[2017-04-29] MEDS: metroNIDAZOLE 500 MG/100 ML 500 MG/100 ML BAG IV SCH ×2 (13:30→18:15)
[2017-04-29] MEDS: CEFEPIME 2 GM in SODIUM CHLORIDE 0.9% MINIBAG 100 ML IV SCH ×2 (14:52→22:03)
--- NOTE | 2017-04-29 15:48 | PROVIDER PROGRESS NOTE ---
Assessment/Plan - Problem List (1) Abdominal pain Assessment/Plan: CT abdomen showed 2cm x 1.5cm x 1cm abscess near the liver Spoke with IR from [facility] who said that the abscess was not large enough to drain and risk of bleeding would outweigh benefit. They recommend treating with IV abx and if pain persists in 2-[address] to see if abscess has grown. Continue IV vancomycin day 6 will add flagyl and cefepime for increased coverage given that abscess is intra-abdominal Patient states abdominal pain has not improved but she has not had any fevers and vital signs are stable IF pain does not improve tomorrow will order repeat CT abd for Thursday and if abscess worse may need it to be drained if improving will need to discharge on PO abx with follow up (2) DKA (diabetic ketoacidoses) Qualifiers: Diabetes mellitus type: type 1 Diabetes mellitus complication detail: without coma Qualified Code(s): E10.10 - Type 1 diabetes mellitus with ketoacidosis without coma Assessment/Plan: Resolved. BG controlled Insulin SS to be adjusted for more stable fingersticks. (3) Wound infection after surgery Qualifiers: Encounter type: subsequent encounter Qualified Code(s): T81.4XXD - Infection following a procedure, subsequent encounter Assessment/Plan: Wound RN following Care as per her guidance. Looks much improved with granulation tissue Continue IV vancomycin day 6 (4) Pacemaker complications Assessment/Plan: No issues with current unit, as per telemetry monitoring. - Current Meds Current Meds: Current Medications Generic Name Dose Route Start Last Admin Trade Name Freq PRN Reason Stop Dose Admin Amitriptyline HCl 50 mg 04/25/17 21:00 04/28/17 21:23 Elavil PO 50 mg QPM ADALBERTO Administration Cholecalciferol 2,000 unit 04/28/17 11:00 04/29/17 08:54 Vitamin D3 PO 2,000 unit DAILY ADALBERTO Administration Enoxaparin Sodium 40 mg 04/25/17 09:00 04/29/17 08:55 Lovenox SUBQ 40 mg DAILY ADALBERTO Administration Famotidine 20 mg 04/25/17 09:00 04/29/17 08:55 Pepcid PO 20 mg DAILY ADALBERTO Administration Furosemide 80 mg 04/25/17 09:00 04/29/17 08:54 Lasix PO 80 mg DAILY ADALBERTO Administration Hydromorphone HCl 1 mg 10/03/17 10:53 04/29/17 08:04 Dilaudid Inj Syringe IVP 1 mg Q8H PRN Administration PAIN Hydromorphone HCl 8 mg 04/29/17 11:10 04/29/17 14:53 Dilaudid PO 8 mg Q4H ADALBERTO Administration Vancomycin HCl 1 gm/ Sodium 250 mls @ 167 mls/hr 04/25/17 10:00 04/29/17 12: 00 Chloride IV Infused Q8H ADALBERTO Infusion Sodium Chloride 1,000 mls @ 75 mls/hr 04/25/17 21:09 04/29/17 13:31 Normal Saline 0.9% IV 0 mls/hr .[id number] ADALBERTO Infusion Cefepime HCl 2 gm/ Sodium 100 mls @ 200 mls/hr 04/29/17 14:00 04/29/17 14:52 Chloride IV 200 mls/hr BID ADABLERTO Administration Metronidazole 500 mg in 100 mls @ 100 mls/hr 04/29/17 12:30 04/29/17 14:30 Flagyl 500 Mg/100 Ml IV Infused Q6HR ADALBERTO Infusion Insulin Aspart 5 unit 04/27/17 13:00 04/29/17 12:21 Novolog SUBQ 5 unit TIDWM ADALBERTO Administration Insulin Aspart 1 - 9 unit 04/27/17 17:00 04/29/17 12:12 Novolog SUBQ Not Given 0800,1200,1700,2100 [facility] Protocol Insulin Glargine 20 unit 04/26/17 10:00 04/28/17 21:31 Lantus Solostar SUBQ 20 unit QPM ADALBERTO Administration Insulin Glargine 20 unit 04/26/17 10:00 04/29/17 08:06 Lantus Solostar SUBQ 20 unit QDBREAKFAST ADALBERTO Administration Ketorolac Tromethamine 30 mg 04/28/17 09:00 04/29/17 08:55 Toradol Inj IVP 05/03/17 08:59 30 mg BID ADALBERTO Administration Levothyroxine Sodium 250 mcg 04/25/17 09:00 04/29/17 08:53 Synthroid PO 250 mcg DAILY ADALBERTO Administration Lisinopril 20 mg 04/25/17 09:00 04/29/17 08:55 Zestril PO 20 mg DAILY ADALBERTO Administration Lorazepam 1 mg 04/24/17 23:24 04/29/17 03:06 Ativan PO 1 mg QPM PRN Administration Anxiety Metoprolol Tartrate 50 mg 04/25/17 09:00 04/29/17 08:53 Lopressor PO 50 mg BID ADALBERTO Administration Multivitamins 1 tab 04/28/17 11:00 04/29/17 08:54 Theragran PO 1 tab DAILYWM ADALBERTO Administration Nystatin 1 applic 04/27/17 03:00 04/29/17 08:55 Mycostatin Cream TOP 1 applic BID ADALBERTO Administration Ondansetron HCl 4 mg 04/24/17 23:28 04/25/17 01:16 Zofran Inj IVP 4 mg Q6HR PRN Administration Nausea / Vomiting Sodium Chloride 10 ml 04/25/17 06:00 04/29/17 13:38 Normal Saline Flush 0.9% IVP Not Given Q8HR ADALBERTO Sodium Chloride 10 ml 04/24/17 23:28 04/28/17 16:10 Normal Saline Flush 0.9% IVP 10 ml PRN PRN Administration NEEDED PER PROVIDER ORDERS Sodium Chloride 20 ml 04/28/17 05:36 04/28/17 05:58 Normal Saline Flush 0.9% IVP 20 ml PRN PRN Administration After Blood Draw Spironolactone 25 mg 04/25/17 09:00 04/29/17 08:54 Aldactone PO 25 mg DAILY ADALBERTO Administration Venlafaxine HCl 150 mg 04/25/17 09:00 04/29/17 08:54 Effexor Er PO 150 mg DAILY ADALBERTO Administration - Lab Result Lab results reviewed: Yes Fish Bone Diagrams: 04/28/17 06:25 04/28/17 06:25 - Diagnostic Imaging Results Diagnostic Imaging Results: Final report reviewed - Additional Planning Condition/Complexity: Guarded My Orders: My Active Orders 04/29/17 11:10 HYDROmorphone [Dilaudid] 8 mg PO Q4H 04/29/17 12:30 metroNIDAZOLE 500 MG/100 ML [Flagyl 500 mg/100 ml] 500 mg in 100 ml IV Q6HR 04/29/17 14:00 Cefepime 2 gm Sodium Chloride 0.9% Minibag [Normal Saline 0.9% Minibag] 100 ml IV BID Plan Discussed with:: Patient, Father Time Spent: 31-60 minutes Subjective - Subjective Patient Reports: Abdominal Pain (Continues to have abdominal pain mostly in the mid abd but also in the right upper quadrant. This is constant and only relieved by pain medication. No vomiting. No nausea. No chest pain.) Nursing Reports: No Complaints Objective Vital Signs: Vital Signs - 24 hr 04/28/17 04/28/17 04/28/17 15:51 19:48 23:53 Temperature 36.7 C 36.9 C 37.1 C Heart Rate [ 80 80 80 Brachial] Respiratory 20 20 18 Rate Blood Pressure 130/58 L [Left Brachial artery] Blood Pressure 134/70 H 114/69 [Right Brachial artery] O2 Saturation 99 98 98 04/29/17 04/29/17 04/29/17 06:07 08:13 11:30 Temperature 36.3 C L 36.8 C 36.5 C Heart Rate [ 79 79 80 Brachial] Respiratory 18 16 16 Rate Blood Pressure 118/65 102/60 98/65 [Left Brachial artery] Blood Pressure [Right Brachial artery] O2 Saturation 99 97 100 Oxygen O2 Source Room air I&O (Last 24 Hrs): Intake and Output Totals x24h 04/27/17 04/28/17 04/29/17 23:59 23:59 23:59 Intake Total 2346.25 4170 2825.00 Balance 2346.25 4170 2825.00 General: Alert, Oriented x3, Cooperative, Mild distress (grimacing from pain) HEENT: Atraumatic, PERRLA, EOMI, Mucous membr. moist/pink Neck: Supple, No JVD, No thyromegaly, +2 carotid pulse wo bruit, No LAD Lymphatic: no adenopathy Neuro: Alert, Non Focal, CN 2-12 Grossly Intact, Oriented Times 3 Cardiovascular: Regular rate, Normal S1, Normal S2, No murmurs Respiratory: No respiratory distress, Breath sounds nml, Other (Surgical wound appears to be healing well.) Abdomen: Normal bowel sounds, Soft, Other (Tenderness diffuse) Extremities: No clubbing, No cyanosis, No edema, Normal pulses, No tenderness/ swelling Skin: No rashes Comments/Notes: Surgical wound appears to be healing well, with no surrounding erythema. - Results Results: Laboratory Results WBC 3.5 x10^3/uL (4.8-10.8) L 04/28/17 06:25 RBC 4.21 10^6/uL (4.20-5.40) 04/28/17 06:25 Hgb 12.4 g/dL (12.0-16.0) 04/28/17 06:25 Hct 38.8 % (37.0-47.0) 04/28/17 06:25 MCV 92.2 fL (81.0-99.0) 04/28/17 06:25 MCH 29.5 pg (27.0-31.0) 04/28/17 06:25 MCHC 32.0 g/dL (32.0-36.0) 04/28/17 06:25 RDW 15.8 % (12.0-15.0) H 04/28/17 06:25 Plt Count 145 10^3/uL (130-450) 04/28/17 06:25 MPV 8.3 fL (7.9-10.8) 04/28/17 06:25 Neut # 2.0 10^3/uL (1.5-6.6) 04/28/17 06:25 Lymph # 1.1 10^3/uL (1.5-3.5) L 04/28/17 06:25 [place] # 0.3 10^3/uL (0.0-1.0) 04/28/17 06:25 Eos # 0.1 10^3/uL (0.0-0.7) 04/28/17 06:25 Baso # 0.0 10^3/uL (0.0-0.1) 04/28/17 06:25 Absolute Nucleated RBC 0.00 x10^3/uL 04/28/17 06:25 Nucleated RBC % 0.0 /100WBC 04/28/17 06:25 Platelet Estimate NORMAL (130-450,000) (NORMAL) 04/25/17 05:15 PT 11.5 secs (9.9-12.6) 04/25/17 05:15 INR 1.0 (0.8-1.2) 04/25/17 05:15 VBG pH 7.299 (7.31-7.41) L 04/27/17 05:56 VBG pCO2 30.0 mmHg (41-51) L 04/25/17 00:00 VBG pO2 84.2 mmHg (25-47) H 04/25/17 00:00 VBG HCO3 14.6 mmol/L (23-28) L 04/25/17 00:00 VBG Total CO2 15.5 mmol/L (24-29) L 04/25/17 00:00 VBG O2 Saturation 96.0 % (60-80) H 04/25/17 00:00 VBG Base Excess -10.4 mmol/L (-2 - +2) L 04/25/17 00:00 Ionized Calcium 1.13 mmol/L (1.15-1.33) L 04/27/17 05:56 Sodium 140 mmol/L (135-145) 04/28/17 06:25 Potassium 4.0 mmol/L (3.5-5.0) 04/28/17 06:25 Chloride 104 mmol/L (101-111) 04/28/17 06:25 Carbon Dioxide 30 mmol/L (21-32) 04/28/17 06:25 Anion Gap 6.0 (6-13) 04/28/17 06:25 BUN 13 mg/dL (6-20) 04/28/17 06:25 Creatinine 0.6 mg/dL (0.4-1.0) 04/28/17 06:25 Estimated GFR (MDRD) 112 (>89) 04/28/17 06:25 Glucose 120 mg/dL (70-100) H 04/28/17 06:25 POC Whole Bld Glucose 102 mg/dL (70 - 100) H 04/29/17 11:18 Glycated Hemoglobin 10.7 % (4.6-6.2) H 04/25/17 00:00 Estim Average Glucose 260 (70-100) H 04/25/17 00:00 Calcium 8.2 mg/dL (8.5-10.3) L 04/28/17 06:25 Ionized Calcium YES 04/27/17 05:56 Phosphorus 4.1 mg/dL (2.5-4.6) 04/27/17 05:56 Magnesium 1.6 mg/dL (1.7-2.8) L 04/28/17 06:25 Total Bilirubin 0.5 mg/dL (0.2-1.0) 04/28/17 06:25 AST 128 IU/L (10-42) H 04/28/17 06:25 ALT 80 IU/L (10-60) H 04/28/17 06:25 Alkaline Phosphatase 161 IU/L (42-121) H 04/28/17 06:25 Troponin I < 0.04 ng/mL (<0.49) 04/25/17 05:15 Total Protein 5.9 g/dL (6.7-8.2) L 04/28/17 06:25 Albumin 2.7 g/dL (3.2-5.5) L 04/28/17 06:25 Globulin 3.2 g/dL (2.1-4.2) 04/28/17 06:25 Albumin/Globulin Ratio 0.8 (1.0-2.2) L 04/28/17 06:25 Lipase 16 U/L (22-51) L 04/24/17 22:08 Urine Color YELLOW 04/24/17 23:00 Urine Clarity CLEAR (CLEAR) 04/24/17 23:00 Urine pH 6.0 PH (5.0-7.5) 04/24/17 23:00 Ur Specific [place] 1.020 (1.002-1.030) 04/24/17 23:00 Urine Protein NEGATIVE mg/dL (NEGATIVE) 04/24/17 23:00 Urine Glucose (UA) >=1000 mg/dL (NEGATIVE) H 04/24/17 23:00 Urine Ketones >=80 mg/dL (NEGATIVE) H 04/24/17 23:00 Urine Occult Blood TRACE-INTA (NEGATIVE) 04/24/17 23:00 Urine Nitrite NEGATIVE (NEGATIVE) 04/24/17 23:00 Urine Bilirubin NEGATIVE (NEGATIVE) 04/24/17 23:00 Urine Urobilinogen 0.2 (NORMAL) E.U./dL (NORMAL) 04/24/17 23:00 Ur Leukocyte Esterase NEGATIVE (NEGATIVE) 04/24/17 23:00 Ur Microscopic Review NOT INDICATED 04/24/17 23:00 Urine Culture Comments NOT INDICATED 04/24/17 23:00 Last Dose Date 04-25-17 04/26/17 01:42 Last Dose Time 1000 04/26/17 01:42 Vancomycin Trough 17.7 ug/mL (5.0-15.0) H 04/26/17 01:42 Serum Ketones SMALL (NEGATIVE) H 04/25/17 03:00 - Procedures Procedures: Procedures ENDO EXCISION/DEST OF LESION OR TISSUE OF STOMACH (03/30/14) ENDOSC POLYPECTOMY OF LG INTEST (03/30/14) INSERTION OF INFUSION DEV INTO SUP VENA CAVA, PERC APPROACH (10/01/16)
[2017-04-29] MEDS: AMITRIPTYLINE 25 MG TABLET PO SCH (21:38)
[2017-04-29] MEDS: SODIUM CHLORIDE FLUSH 0.9% 10 ML SYRINGE IVP PRN (21:45)
[2017-04-30] MEDS: HYDROmorphone 2 MG TABLET PO SCH ×7 (00:08→23:33)
[2017-04-30] MEDS: metroNIDAZOLE 500 MG/100 ML 500 MG/100 ML BAG IV SCH ×5 (00:10→23:37)
[2017-04-30] MEDS: HYDROmorphone 1 MG/ML SYRINGE IVP PRN ×4 (00:11→23:33)
[2017-04-30] MEDS: SODIUM CHLORIDE FLUSH 0.9% 10 ML SYRINGE IVP PRN ×2 (00:11→23:38)
[2017-04-30] MEDS: SODIUM CHLORIDE 0.9% 1,000 ML IV SCH ×3 (02:28→23:38)
[2017-04-30] MEDS: VANCOMYCIN INJ 1 GM in SODIUM CHLORIDE 0.9% 250 ML IV SCH ×3 (02:31→18:41)
[2017-04-30 05:50] LABS: BASOPHILS % (AUTO) 0.5 %; EOSINOPHILS # (AUTO) 0.1 10^3/uL (0.0-0.7); EOSINOPHILS % (AUTO) 2.7 %; HCT - HEMATOCRIT 36.1 % (37.0-47.0); HGB - HEMOGLOBIN 11.6 g/dL (12.0-16.0); LYMPHOCYTES # (AUTO) 1.1 10^3/uL (1.5-3.5); LYMPHOCYTES % (AUTO) 22.3 %; MEAN CORPUSCULAR HGB CONC 32.1 g/dL (32.0-36.0); MEAN CORPUSCULAR VOLUME 93.5 fL (81.0-99.0); MEAN PLATELET VOLUME 8.8 fL (7.9-10.8); MONOCYTES # (AUTO) 0.5 10^3/uL (0.0-1.0); MONOCYTES % (AUTO) 9.7 %; NEUTROPHILS # (AUTO) 3.1 10^3/uL (1.5-6.6); NEUTROPHILS % (AUTO) 64.8 %; RED BLOOD COUNT 3.86 10^6/uL (4.20-5.40); UNCORRECTED WHITE BLOOD COUNT 4.8 x10^3/uL; WHITE BLOOD COUNT 4.8 x10^3/uL (4.8-10.8)
[2017-04-30 06:01] LABS: ALBUMIN/GLOBULIN RATIO 0.8 (1.0-2.2); BILIRUBIN,TOTAL 0.2 mg/dL (0.2-1.0); BUN - BLOOD UREA NITROGEN 18 mg/dL (6-20); CARBON DIOXIDE - CO2 28 mmol/L (21-32); CHLORIDE 102 mmol/L (101-111); CREATININE 0.8 mg/dL (0.4-1.0); GFR - MDRD 80 (>89); GLUCOSE 68 mg/dL (70-100); MAGNESIUM 1.5 mg/dL (1.7-2.8); PHOSPHORUS 4.9 mg/dL (2.5-4.6); POTASSIUM 3.8 mmol/L (3.5-5.0); SODIUM 140 mmol/L (135-145); TOTAL PROTEIN 6.2 g/dL (6.7-8.2)
[2017-04-30 06:06] LABS: CALCIUM, IONIZED 1.08 mmol/L (1.15-1.33); VBG PH 7.296 (7.31-7.41)
[2017-04-30] MEDS: SODIUM CHLORIDE FLUSH 0.9% 10 ML SYRINGE IVP SCH ×3 (07:04→20:13)
[2017-04-30] MEDS ORDERED: INSULIN GLARGINE 300 UNIT/3 ML PEN SUBQ SCH ×2 (07:52→21:00)
[2017-04-30] MEDS: INSULIN ASPART 300 UNIT/3 ML PEN SUBQ SCH ×4 (08:16→20:37)
[2017-04-30] MEDS: MULTIVITAMIN TABLET PO SCH (08:32)
[2017-04-30] MEDS: FAMOTIDINE 20 MG TABLET PO SCH (08:32)
[2017-04-30] MEDS: FUROSEMIDE 40 MG TABLET PO SCH (08:32)
[2017-04-30] MEDS: CHOLECALCIFEROL 1,000 UNIT TABLET PO SCH (08:32)
[2017-04-30] MEDS: VENLAFAXINE ER 75 MG CAPSULE PO SCH (08:33)
[2017-04-30] MEDS: MAGNESIUM OXIDE 400 MG TABLET PO SCH (08:33)
[2017-04-30] MEDS: KETOROLAC 30 MG/ML VIAL IVP SCH ×2 (08:34→20:13)
[2017-04-30] MEDS: ENOXAPARIN 40 MG/0.4 ML SYRINGE SUBQ SCH (08:34)
[2017-04-30] MEDS: CEFEPIME 2 GM in SODIUM CHLORIDE 0.9% MINIBAG 100 ML IV SCH ×2 (08:34→20:13)
[2017-04-30] MEDS: SPIRONOLACTONE 25 MG TABLET PO SCH (08:34)
[2017-04-30] MEDS: LISINOPRIL 20 MG TABLET PO SCH (08:35)
[2017-04-30] MEDS: METOPROLOL TARTRATE 50 MG TABLET PO SCH ×2 (08:35→20:12)
[2017-04-30] MEDS: NYSTATIN CREAM 15 GM TUBE TOP SCH ×2 (08:38→20:12)
[2017-04-30] MEDS: LEVOTHYROXINE 100 MCG TABLET PO SCH (08:44)
--- NOTE | 2017-04-30 17:38 | PROVIDER PROGRESS NOTE ---
Assessment/Plan - Problem List (1) Intra-abdominal abscess Assessment/Plan: CT abdomen showed 2cm x 1.5cm x 1cm abscess near the liver Spoke with IR from [facility] who said that the abscess was not large enough to drain and risk of bleeding would outweigh benefit. They recommend treating with IV abx and if pain persists in 2-[address] to see if abscess has grown. Continue IV vancomycin day 7 will as well as flagyl and cefepime day 2 for increased coverage given that abscess is intra-abdominal Patient states abdominal pain has not improved but she has not had any fevers and vital signs are stable CT abd tomorrow morning if abscess larger will need to be drained if the same or smaller then patient will be discharged home on PO abx (2) DKA (diabetic ketoacidoses) Qualifiers: Diabetes mellitus type: type 1 Diabetes mellitus complication detail: without coma Qualified Code(s): E10.10 - Type 1 diabetes mellitus with ketoacidosis without coma Assessment/Plan: Resolved. Patient has had multiple episodes of hypoglycemia since yesterday Will adjust Lantus to 15 units BID and stop meal time novolog and continue only SS insulin (3) Wound infection after surgery Qualifiers: Encounter type: subsequent encounter Qualified Code(s): T81.4XXD - Infection following a procedure, subsequent encounter Assessment/Plan: Wound RN following Care as per her guidance. Looks much improved with granulation tissue Continue IV vancomycin day 7 (4) Pacemaker complications Assessment/Plan: No issues with current unit, as per telemetry monitoring. - Current Meds Current Meds: Current Medications Generic Name Dose Route Start Last Admin Trade Name Carlo PRN Reason Stop Dose Admin Amitriptyline HCl 50 mg 04/25/17 21:00 04/29/17 21:38 Elavil PO 50 mg QPM ADALBERTO Administration Cholecalciferol 2,000 unit 04/28/17 11:00 04/30/17 08:32 Vitamin D3 PO 2,000 unit DAILY ADALBERTO Administration Enoxaparin Sodium 40 mg 04/25/17 09:00 04/30/17 08:34 Lovenox SUBQ 40 mg DAILY ADALBERTO Administration Famotidine 20 mg 04/25/17 09:00 04/30/17 08:32 Pepcid PO 20 mg DAILY ADALBERTO Administration Furosemide 80 mg 04/25/17 09:00 04/30/17 08:32 Lasix PO 80 mg DAILY ADALBERTO Administration Hydromorphone HCl 1 mg 04/28/17 10:53 04/30/17 15:08 Dilaudid Inj Syringe IVP 1 mg Q8H PRN Administration PAIN Hydromorphone HCl 8 mg 04/30/17 16:00 04/30/17 16:07 Dilaudid PO 8 mg Q4H ADALBERTO Administration Vancomycin HCl 1 gm/ Sodium 250 mls @ 167 mls/hr 04/25/17 10:00 04/30/17 12: 45 Chloride IV Infused Q8H ADALBERTO Infusion Sodium Chloride 1,000 mls @ 75 mls/hr 04/25/17 21:09 04/30/17 12:53 Normal Saline 0.9% IV 75 mls/hr .[id number] ADALBERTO Administration Cefepime HCl 2 gm/ Sodium 100 mls @ 200 mls/hr 04/29/17 14:00 04/30/17 09:33 Chloride IV Infused BID ADALBERTO Infusion Metronidazole 500 mg in 100 mls @ 100 mls/hr 04/29/17 12:30 04/30/17 17:30 Flagyl 500 Mg/100 Ml IV 100 mls/hr Q6HR ADALBERTO Administration Insulin Aspart 1 - 9 unit 04/27/17 17:00 04/30/17 17:31 Novolog SUBQ 3 unit 0800,1200,1700,2100 ADALBERTO Administration Protocol Insulin Glargine 15 unit 04/30/17 07:52 04/30/17 08:37 Lantus Solostar SUBQ 15 unit QDBREAKFAST ADALBERTO Administration Ketorolac Tromethamine 30 mg 04/28/17 09:00 04/30/17 08:34 Toradol Inj IVP 05/03/17 08:59 30 mg BID ADALBERTO Administration Levothyroxine Sodium 250 mcg 04/25/17 09:00 04/30/17 08:44 Synthroid PO 250 mcg DAILY ADALBERTO Administration Lisinopril 20 mg 04/25/17 09:00 04/30/17 08:35 Zestril PO Not Given DAILY ADALBERTO Lorazepam 1 mg 04/24/17 23:24 04/29/17 21:40 Ativan PO 1 mg QPM PRN Administration Anxiety Magnesium Oxide 400 mg 04/30/17 08:00 04/30/17 08:33 Mag Ox PO 400 mg DAILYWM ADALBERTO Administration Metoprolol Tartrate 50 mg 04/25/17 09:00 04/30/17 08:35 Lopressor PO Not Given BID ADALBERTO Multivitamins 1 tab 04/28/17 11:00 04/30/17 08:32 Theragran PO 1 tab DAILYWM ADALBERTO Administration Nystatin 1 applic 04/27/17 03:00 04/30/17 08:38 Mycostatin Cream TOP 1 applic BID ADALBERTO Administration Ondansetron HCl 4 mg 04/24/17 23:28 04/25/17 01:16 Zofran Inj IVP 4 mg Q6HR PRN Administration Nausea / Vomiting Sodium Chloride 10 ml 04/25/17 06:00 04/30/17 15:02 Normal Saline Flush 0.9% IVP Not Given Q8HR ADALBERTO Sodium Chloride 10 ml 04/24/17 23:28 04/30/17 00:11 Normal Saline Flush 0.9% IVP 10 ml PRN PRN Administration NEEDED PER PROVIDER ORDERS Sodium Chloride 20 ml 04/28/17 05:36 04/28/17 05:58 Normal Saline Flush 0.9% IVP 20 ml PRN PRN Administration After Blood Draw Spironolactone 25 mg 04/25/17 09:00 04/30/17 08:34 Aldactone PO 25 mg DAILY ADALBERTO Administration Venlafaxine HCl 150 mg 04/25/17 09:00 04/30/17 08:33 Effexor Er PO 150 mg DAILY ADALBERTO Administration - Lab Result Lab results reviewed: Yes Fish Bone Diagrams: 04/30/17 05:29 04/30/17 05:29 - Diagnostic Imaging Results Diagnostic Imaging Results: Final report reviewed - Additional Planning Condition/Complexity: Guarded My Orders: My Active Orders 04/30/17 07:52 Insulin Glargine [Lantus Solostar] 15 unit SUBQ QDBREAKFAST 04/30/17 08:00 Magnesium Oxide [Mag Ox] 400 mg PO DAILYWM 04/30/17 16:00 HYDROmorphone [Dilaudid] 8 mg PO Q4H 04/30/17 21:00 Insulin Glargine [Lantus Solostar] 15 unit SUBQ QPM 05/01/17 05:00 CBC - COMP BLD CT W/AUTO DIFF [HEME] DAILYLAB CMP, RFLX TO IONIZED CA IF [CHEM] DAILYLAB CRP - C-REACTIVE PROTEIN [CHEM] DAILYLAB ESR- ERYTHROCYTE SEDIMENT RATE [HEME] DAILYLAB MAGNESIUM [CHEM] DAILYLAB PHOSPHORUS [CHEM] DAILYLAB 05/01/17 06:00 Abdomen/Pelvis W/ [CT] Routine 05/02/17 05:00 CBC - COMP BLD CT W/AUTO DIFF [HEME] DAILYLAB CMP, RFLX TO IONIZED CA IF [CHEM] DAILYLAB CRP - C-REACTIVE PROTEIN [CHEM] DAILYLAB ESR- ERYTHROCYTE SEDIMENT RATE [HEME] DAILYLAB MAGNESIUM [CHEM] DAILYLAB PHOSPHORUS [CHEM] DAILYLAB 05/03/17 05:00 CBC - COMP BLD CT W/AUTO DIFF [HEME] DAILYLAB CMP, RFLX TO IONIZED CA IF [CHEM] DAILYLAB MAGNESIUM [CHEM] DAILYLAB PHOSPHORUS [CHEM] DAILYLAB Plan Discussed with:: Patient Time Spent: 31-60 minutes Subjective - Subjective Patient Reports: Abdominal Pain (Continues to have abdominal pain she states it is in the RUQ and goes around to the right flank. Denies any fevers, chills, nausea or vomiting.) Nursing Reports: No Complaints Objective Vital Signs: Vital Signs - 24 hr 04/29/17 04/29/17 04/30/17 20:08 21:41 00:19 Temperature 37.1 C 36.5 C Heart Rate [ 80 80 Brachial] Respiratory 16 16 Rate Blood Pressure 106/64 Blood Pressure [Left Brachial artery] Blood Pressure 104/70 100/59 L [Right Brachial artery] O2 Saturation 100 98 04/30/17 08:56 Temperature 36.9 C Heart Rate [ 80 Brachial] Respiratory 16 Rate Blood Pressure Blood Pressure 110/61 [Left Brachial artery] Blood Pressure [Right Brachial artery] O2 Saturation 98 Oxygen O2 Source Room air I&O (Last 24 Hrs): Intake and Output Totals x24h 04/28/17 04/29/17 04/30/17 23:59 23:59 23:59 Intake Total 4170 4260.00 3015.0 Balance 4170 4260.00 3015.0 General: Alert, Oriented x3, Cooperative, Mild distress (Pain, grimacing) HEENT: Atraumatic, PERRLA, EOMI, Mucous membr. moist/pink Neck: Supple, No JVD, No thyromegaly, +2 carotid pulse wo bruit, No LAD Lymphatic: no adenopathy Neuro: Alert, Non Focal, CN 2-12 Grossly Intact, Oriented Times 3 Cardiovascular: Regular rate, Normal S1, Normal S2, No murmurs Respiratory: Chest non-tender, No respiratory distress, Breath sounds nml Abdomen: Soft, Other (RIght upper quadrant tenderness, no guarding, no rebound, no peritoneal signs.) Extremities: No clubbing, No cyanosis, No edema, Normal pulses, No tenderness/ swelling Skin: No rashes, No breakdown, No significant lesion - Results Results: Laboratory Results WBC 4.8 x10^3/uL (4.8-10.8) 04/30/17 05:29 RBC 3.86 10^6/uL (4.20-5.40) L 04/30/17 05:29 Hgb 11.6 g/dL (12.0-16.0) L 04/30/17 05:29 Hct 36.1 % (37.0-47.0) L 04/30/17 05:29 MCV 93.5 fL (81.0-99.0) 04/30/17 05:29 MCH 30.0 pg (27.0-31.0) 04/30/17 05:29 MCHC 32.1 g/dL (32.0-36.0) 04/30/17 05:29 RDW 16.0 % (12.0-15.0) H 04/30/17 05:29 Plt Count 167 10^3/uL (130-450) 04/30/17 05:29 MPV 8.8 fL (7.9-10.8) 04/30/17 05:29 Neut # 3.1 10^3/uL (1.5-6.6) 04/30/17 05:29 Lymph # 1.1 10^3/uL (1.5-3.5) L 04/30/17 05:29 [place] # 0.5 10^3/uL (0.0-1.0) 04/30/17 05:29 Eos # 0.1 10^3/uL (0.0-0.7) 04/30/17 05:29 Baso # 0.0 10^3/uL (0.0-0.1) 04/30/17 05:29 Absolute Nucleated RBC 0.00 x10^3/uL 04/30/17 05:29 Nucleated RBC % 0.0 /100WBC 04/30/17 05:29 Platelet Estimate NORMAL (130-450,000) (NORMAL) 04/25/17 05:15 ESR 64 mm/Hr (0-20) H 04/30/17 05:29 PT 11.5 secs (9.9-12.6) 04/25/17 05:15 INR 1.0 (0.8-1.2) 04/25/17 05:15 VBG pH 7.296 (7.31-7.41) L 04/30/17 05:29 VBG pCO2 30.0 mmHg (41-51) L 04/25/17 00:00 VBG pO2 84.2 mmHg (25-47) H 04/25/17 00:00 VBG HCO3 14.6 mmol/L (23-28) L 04/25/17 00:00 VBG Total CO2 15.5 mmol/L (24-29) L 04/25/17 00:00 VBG O2 Saturation 96.0 % (60-80) H 04/25/17 00:00 VBG Base Excess -10.4 mmol/L (-2 - +2) L 04/25/17 00:00 Ionized Calcium 1.08 mmol/L (1.15-1.33) L 04/30/17 05:29 Sodium 140 mmol/L (135-145) 04/30/17 05:29 Potassium 3.8 mmol/L (3.5-5.0) 04/30/17 05:29 Chloride 102 mmol/L (101-111) 04/30/17 05:29 Carbon Dioxide 28 mmol/L (21-32) 04/30/17 05:29 Anion Gap 10.0 (6-13) 04/30/17 05:29 BUN 18 mg/dL (6-20) 04/30/17 05:29 Creatinine 0.8 mg/dL (0.4-1.0) 04/30/17 05:29 Estimated GFR (MDRD) 80 (>89) L 04/30/17 05:29 Glucose 68 mg/dL (70-100) L 04/30/17 05:29 POC Whole Bld Glucose 200 mg/dL (70 - 100) H 04/30/17 16:26 Glycated Hemoglobin 10.7 % (4.6-6.2) H 04/25/17 00:00 Estim Average Glucose 260 (70-100) H 04/25/17 00:00 Calcium 8.0 mg/dL (8.5-10.3) L 04/30/17 05:29 Ionized Calcium YES 04/30/17 05:29 Phosphorus 4.9 mg/dL (2.5-4.6) H 04/30/17 05:29 Magnesium 1.5 mg/dL (1.7-2.8) L 04/30/17 05:29 Total Bilirubin 0.2 mg/dL (0.2-1.0) 04/30/17 05:29 AST 31 IU/L (10-42) 04/30/17 05:29 ALT 42 IU/L (10-60) 04/30/17 05:29 Alkaline Phosphatase 136 IU/L (42-121) H 04/30/17 05:29 Troponin I < 0.04 ng/mL (<0.49) 04/25/17 05:15 C-Reactive Protein 1.4 mg/dL (0-1.0) H 04/30/17 05:29 Total Protein 6.2 g/dL (6.7-8.2) L 04/30/17 05:29 Albumin 2.7 g/dL (3.2-5.5) L 04/30/17 05:29 Globulin 3.5 g/dL (2.1-4.2) 04/30/17 05:29 Albumin/Globulin Ratio 0.8 (1.0-2.2) L 04/30/17 05:29 Lipase 16 U/L (22-51) L 04/24/17 22:08 Urine Color YELLOW 04/24/17 23:00 Urine Clarity CLEAR (CLEAR) 04/24/17 23:00 Urine pH 6.0 PH (5.0-7.5) 04/24/17 23:00 Ur Specific [place] 1.020 (1.002-1.030) 04/24/17 23:00 Urine Protein NEGATIVE mg/dL (NEGATIVE) 04/24/17 23:00 Urine Glucose (UA) >=1000 mg/dL (NEGATIVE) H 04/24/17 23:00 Urine Ketones >=80 mg/dL (NEGATIVE) H 04/24/17 23:00 Urine Occult Blood TRACE-INTA (NEGATIVE) 04/24/17 23:00 Urine Nitrite NEGATIVE (NEGATIVE) 04/24/17 23:00 Urine Bilirubin NEGATIVE (NEGATIVE) 04/24/17 23:00 Urine Urobilinogen 0.2 (NORMAL) E.U./dL (NORMAL) 04/24/17 23:00 Ur Leukocyte Esterase NEGATIVE (NEGATIVE) 04/24/17 23:00 Ur Microscopic Review NOT INDICATED 04/24/17 23:00 Urine Culture Comments NOT INDICATED 04/24/17 23:00 Last Dose Date 04-25-17 04/26/17 01:42 Last Dose Time 1000 04/26/17 01:42 Vancomycin Trough 17.7 ug/mL (5.0-15.0) H 04/26/17 01:42 Serum Ketones SMALL (NEGATIVE) H 04/25/17 03:00 - Procedures Procedures: Procedures ENDO EXCISION/DEST OF LESION OR TISSUE OF STOMACH (03/30/14) ENDOSC POLYPECTOMY OF LG INTEST (03/30/14) INSERTION OF INFUSION DEV INTO SUP VENA CAVA, PERC APPROACH (10/01/16)
[2017-04-30] MEDS: AMITRIPTYLINE 25 MG TABLET PO SCH (20:12)
[2017-05-01] MEDS ORDERED: IOPAMIDOL-300 50 ML VIAL ONE (01:50)
[2017-05-01] MEDS ORDERED: IOPAMIDOL-300 100 ML VIAL ONE (02:20)
[2017-05-01] MEDS: VANCOMYCIN INJ 1 GM in SODIUM CHLORIDE 0.9% 250 ML IV SCH ×2 (02:24→10:52)
[2017-05-01] MEDS: HYDROmorphone 2 MG TABLET PO SCH ×3 (03:07→11:58)
[2017-05-01] MEDS ORDERED: IOPAMIDOL-300 100 ML VIAL IVP ONE (05:33)
[2017-05-01] MEDS ORDERED: IOPAMIDOL-300 50 ML VIAL PO ONE (05:33)
--- NOTE | 2017-05-01 05:40 | CT Preliminary Report ---
Exam: CT Abdomen/Pelvis W/ IMPRESSION: Intravenous injection infiltration reported by the technologist. Study is essentially a non-contrast study. 1. No kidney stone. 2. No definite intra-abdominal abscess demonstrated on this noncontrast study. 3. No evidence of bowel obstruction. Moderate amount of retained fecal matter within the colon. [facility] SITE ID: [id number]
--- NOTE | 2017-05-01 05:51 | CT Report ---
EXAM: CT ABDOMEN AND PELVIS EXAM DATE: 05/01/2017 04:38 AM. CLINICAL HISTORY: Intraabdominal abscess. COMPARISONS: None. TECHNIQUE: Routine helical CT imaging was performed through the abdomen and pelvis. IV contrast: 100 mL Isovue-300. Enteric contrast: Present. Reconstructions: Coronal and sagittal. Provided technologist notes indicates intravenous contrast injection infiltration. In accordance with CT protocol optimization, one or more of the following dose reduction techniques w ere utilized for this exam: automated exposure control, adjustment of mA and/or KV based on patient s ize, or use of iterative reconstructive technique. FINDINGS: Contrast infiltration resulting in essentially noncontrast examination. Kidneys and Ureters: As visualized no definite kidney stone or hydronephrosis. No definite suspicious renal mass within the confines of a noncontrast study. Abdominal Solid Organs: Abdominal parenchymal organs are without significant abnormality within the c onfines of a noncontrast exam. Gallbladder is absent. Bowel: No abnormal dilated bowel loops are noted. There is moderate amount of retained fecal matter w ithin the colon. Appendix: Not visualized. Lymph Nodes: No definite pathologic lymphadenopathy. Fluid: No significant ascites. Vasculature: Normal caliber aorta. Other: There is an anterior abdominal wall collection of subcutaneous gas and stranding within the pedraza bxiphoid region. This may be related to recent surgery. Correlation is needed. No definite organized fluid collection noted. Pelvis: Heterogeneous density 5.3 x 4.8 cm left ovary abnormality. This is difficult to characterize. No suspicious bladder filling defect. Diffuse body wall edema. Bones: No definite suspicious bony lesions demonstrated. Lower Chest: No significant lung base consolidation or effusion. IMPRESSION: Intravenous injection infiltration reported by the technologist. Study is essentially a noncontrast s tudy. 1. No kidney stone. 2. No definite intraabdominal abscess demonstrated on this noncontrast study. Sensitivity and specifi city are reduced due to the lack of intravenous contrast. 3. No evidence of bowel obstruction. Moderate amount of retained fecal matter within the colon. [facility] Referring Provider Line: [phone] SITE ID: [id number]
[2017-05-01 06:01] LABS: BASOPHILS % (AUTO) 0.9 %; EOSINOPHILS # (AUTO) 0.1 10^3/uL (0.0-0.7); EOSINOPHILS % (AUTO) 2.7 %; HCT - HEMATOCRIT 34.3 % (37.0-47.0); LYMPHOCYTES # (AUTO) 1.1 10^3/uL (1.5-3.5); LYMPHOCYTES % (AUTO) 22.6 %; MEAN CORPUSCULAR HEMOGLOBIN 29.9 pg (27.0-31.0); MEAN CORPUSCULAR HGB CONC 32.1 g/dL (32.0-36.0); MEAN CORPUSCULAR VOLUME 93.4 fL (81.0-99.0); MEAN PLATELET VOLUME 8.9 fL (7.9-10.8); MONOCYTES # (AUTO) 0.5 10^3/uL (0.0-1.0); MONOCYTES % (AUTO) 9.8 %; NEUTROPHILS # (AUTO) 3.1 10^3/uL (1.5-6.6); RED BLOOD COUNT 3.68 10^6/uL (4.20-5.40); RED CELL DISTRIBUTION WIDTH 15.8 % (12.0-15.0); UNCORRECTED WHITE BLOOD COUNT 4.8 x10^3/uL; WHITE BLOOD COUNT 4.8 x10^3/uL (4.8-10.8)
[2017-05-01 06:20] LABS: ALBUMIN/GLOBULIN RATIO 0.8 (1.0-2.2); BILIRUBIN,TOTAL 0.3 mg/dL (0.2-1.0); BUN - BLOOD UREA NITROGEN 16 mg/dL (6-20); CARBON DIOXIDE - CO2 28 mmol/L (21-32); CHLORIDE 101 mmol/L (101-111); CREATININE 0.8 mg/dL (0.4-1.0); GFR - MDRD 80 (>89); GLUCOSE 173 mg/dL (70-100); MAGNESIUM 1.6 mg/dL (1.7-2.8); PHOSPHORUS 4.7 mg/dL (2.5-4.6); POTASSIUM 4.1 mmol/L (3.5-5.0); SODIUM 137 mmol/L (135-145); TOTAL PROTEIN 5.6 g/dL (6.7-8.2)
[2017-05-01 06:26] LABS: CALCIUM, IONIZED 1.03 mmol/L (1.15-1.33); VBG PH 7.436 (7.31-7.41)
[2017-05-01] MEDS: metroNIDAZOLE 500 MG/100 ML 500 MG/100 ML BAG IV SCH ×2 (06:36→12:35)
[2017-05-01] MEDS: SODIUM CHLORIDE FLUSH 0.9% 10 ML SYRINGE IVP SCH (06:36)
[2017-05-01] MEDS: HYDROmorphone 1 MG/ML SYRINGE IVP PRN (06:42)
[2017-05-01] MEDS: SODIUM CHLORIDE FLUSH 0.9% 10 ML SYRINGE IVP PRN (06:42)
[2017-05-01] MEDS ORDERED: INSULIN GLARGINE 300 UNIT/3 ML PEN SUBQ SCH ×2 (08:32)
[2017-05-01] MEDS: INSULIN ASPART 300 UNIT/3 ML PEN SUBQ SCH ×2 (09:04→11:48)
[2017-05-01] MEDS: CHOLECALCIFEROL 1,000 UNIT TABLET PO SCH (09:06)
[2017-05-01] MEDS: CEFEPIME 2 GM in SODIUM CHLORIDE 0.9% MINIBAG 100 ML IV SCH (09:07)
[2017-05-01] MEDS: LEVOTHYROXINE 100 MCG TABLET PO SCH (09:07)
[2017-05-01] MEDS: ENOXAPARIN 40 MG/0.4 ML SYRINGE SUBQ SCH (09:07)
[2017-05-01] MEDS: METOPROLOL TARTRATE 50 MG TABLET PO SCH (09:08)
[2017-05-01] MEDS: VENLAFAXINE ER 75 MG CAPSULE PO SCH (09:08)
[2017-05-01] MEDS: FUROSEMIDE 40 MG TABLET PO SCH (09:08)
[2017-05-01] MEDS: FAMOTIDINE 20 MG TABLET PO SCH (09:08)
[2017-05-01] MEDS: SPIRONOLACTONE 25 MG TABLET PO SCH (09:08)
[2017-05-01] MEDS: LISINOPRIL 20 MG TABLET PO SCH (09:09)
[2017-05-01] MEDS: MULTIVITAMIN TABLET PO SCH (09:09)
[2017-05-01] MEDS: MAGNESIUM OXIDE 400 MG TABLET PO SCH (09:09)
[2017-05-01] MEDS: KETOROLAC 30 MG/ML VIAL IVP SCH (09:09)
[2017-05-01] MEDS: NYSTATIN CREAM 15 GM TUBE TOP SCH (09:10)
--- NOTE | 2017-05-01 11:52 | Discharge Plan ---
Discharge Plan Disposition: 01 Home, Self Care Condition: Good Prescriptions: Ciprofloxacin HCl [Cipro] 500 mg PO BID #14 tablet HYDROmorphone [Dilaudid] 8 mg PO Q4H #30 tablet Metronidazole [Flagyl] 500 mg PO QID #28 tablet Diet: Diabetic Activity Restrictions: Activity as Tolerated Shower Restrictions: No Driving Restrictions: No Weight Bearing: Full Weight Additional Instructions or Follow Up instructions: He presented to the hospital with diabetic ketoacidosis which has since resolved. You have been having episodes of hypoglycemia since he has been in the hospital. I recommend that you decrease your dose of Lantus to 20 units subQ twice daily and monitor your blood sugars if they do start to be elevated then you can increase your dose gradually. During the hospitalization you were also found to have an infection of an incisional wound which appears to be clearing up. You are being discharged home with a dressing over the wound I would like you to keep that on for the next week. You should follow-up with wound care and the [facility] clinic to have that further assessed. You were also found to have a intra-abdominal abscess near your liver which appears to be resolving. I am discharging her home with oral ciprofloxacin and oral Flagyl for 7 additional days to complete treatment for this intra-abdominal abscess. Please follow-up with your primary care physician as needed. Follow-Up Care: [facility] - Wound/Ostomy No Smoking: If you smoke, Please STOP! Call for help. Follow-up with: Amisha Staton DO [Primary Care Provider] -
[2017-05-01 12:51] VITALS: BP 117/71
--- NOTE | 2017-05-01 13:05 | Ultrasound Report ---
RIGHT ARM VENOUS DUPLEX: 05/01/2017 CLINICAL INDICATION: Edema. TECHNIQUE: Real-time sonographic vascular imaging was performed by the cut off machine operator through the right upper extremity utilizing both color-flow and Doppler spectral analysis. Multiple communications representative sta tic images were saved for review. FINDINGS: There is normal flow and compression of the right jugular, visualized subclavian, axillary , cephalic, brachial and basilic veins. There is no evidence of DVT. Subcutaneous edema is noted. IMPRESSION: NO EVIDENCE OF DVT. JOB #: [id number] EXT JOB #:[id number]
--- NOTE | 2017-05-01 13:22 | DISCHARGE SUMMARY ---
Discharge Summary Admit Date: 04/24/17 Discharge Date: 05/01/17 Discharging Provider: Ruy Carcamo MD Primary Care Provider: Carlie Staton MD Code Status: Attempt Resuscitation Condition at Discharge: Good Discharge Disposition: 01 Home, Self Care - DIAGNOSES Admission Diagnoses: 1. Diabetic ketoacidosis 2. Wound infection after surgery 3. Congestive heart failure 4. Hypothyroidism 5. Chronic pain 6. Hypertension 7. Depression 8. Prophylactic use of low molecular weight heparin for venous thromboembolism Discharge Diagnoses with Status of Each Condition: 1. Intra-abdominal abscess: Resolving 2. Wound infection after surgery: Resolving 3. Diabetic ketoacidosis: Resolved 4. Pacemaker complications: Stable 5. Congestive heart failure: Stable 6. Chronic pain: Stable 7. Hypothyroidism: Stable 8. Hypertension: Stable 9. Depression: Stable - HPI History of Present Illness: Patient is a 36-year-old female with a past medical history significant for type 1 diabetes, CHF, SVT status post ablation which caused complete heart block and patient now has a pacemaker for the heart block, chronic chest pain, hypertension, pulmonary embolism, depression, anxiety, PTSD, panic attacks, claustrophobia, history of multiple skin infections, Graves' disease and chronic neck and back pain who presented to the emergency department with chief complaint of vomiting, dizziness and elevated blood glucose. The patient was last admitted here at [facility] in September 2016 after that hospitalization patient has had a long and complicated course. The patient states that she began having right flank pain after she was discharged and she went to [facility] where she was found to have a large abscess on her right kidney. The patient had this abscess drained and was hospitalized for a prolonged period of time. During the hospitalization she was also found to have an infection of her pacemaker lead. The patient's pacemaker had to be removed and a new pacemaker had to be placed. The patient states that she was also diagnosed with congestive heart failure during that hospitalization. The patient states that she was finally discharged home but then returned in January she was again found to have a vegetation on 1 of her pacemaker leads. The patient was then sent to the [facility] where they took her old pacemaker out and placed a new pacemaker on February 24 with external leads. The patient states that for this procedure they had to open up her chest wall. And postprocedure she had infection of the chest wall. This was treated with IV antibiotics and patient was eventually discharged. The patient states that after discharge she noticed that she was having drainage from the incision site of where her wound was closed and she came to our emergency department. Here she had cultures taken of the drainage and was discharged on doxycycline. The patient then followed up with her cardiothoracic surgeon at [facility] and they looked at her wound and felt that it was not infected and removed the stitches and sent her home. The patient states that over the last several days she has had increasing pain at the site of the wound and had continued drainage with foul smell. She states that yesterday she began vomiting and was having increasing pain when she checked her blood glucose it was elevated in the mid to high 300s. She states that she then began feeling dizzy and lethargic and finally decided she needed to come into the emergency department this evening. The patient denies having had any fevers, chills, upper respiratory symptoms, chest pain, shortness of air, urinary symptoms, abdominal pain, diarrhea, joint swelling, joint pain, muscle aches, recent unintentional weight loss although the patient states she has lost significant amount of weight, focal neurologic deficits. On presentation to the emergency department the patient was afebrile and slightly hypertensive but the remainder of her vital signs were within normal limits. The patient did appear to be quite nauseated and slightly lethargic. The patient's lab work revealed that the patient was in diabetic ketoacidosis. The patient's blood glucose was 568 with an anion gap of 20 and positive serum ketones. The emergency room physician looked back at the wound culture from 2 weeks earlier and found that it grew Enterococcus faecalis which was resistant to doxycycline. It was felt that the patient likely had DKA secondary to infection of her open wound on the chest wall. The patient was admitted to the hospital for DKA and treatment of her chest wall wound. - HOSPITAL COURSE Hospital Course: (1) Intra-abdominal abscess Assessment/Plan: Patient developed right upper quadrant abdominal pain while in the hospital CT abdomen showed 2cm x 1.5cm x 1cm abscess near the liver Spoke with IR from [facility] who said that the abscess was not large enough to drain and risk of bleeding would outweigh benefit. They recommend treating with IV abx and if pain persists in 2-[address] to see if abscess has grown. Patients pain persisted therefore CT was repeated and did not show any evidence of an abscess Patient received 7 days of vancomycin for the wound infection and 3 days of cefepime and flagyl for the abscess Patient will be continued on Cefepime and Flagyl for an additional 7 days to complete a 10 day course for an intra-abdominal infection At discharge patient was still having abdominal pain and was prescribed a short course of pain medication She was otherwise stable with normal vital signs, no fevers and normal WBC (2) DKA (diabetic ketoacidoses) Qualifiers: Diabetes mellitus type: type 1 Diabetes mellitus complication detail: without coma Qualified Code(s): E10.10 - Type 1 diabetes mellitus with ketoacidosis without coma Assessment/Plan: Resolved with insulin drip Was likely caused by ongoing infection Patient had several episodes of hypoglycemia during hospitalization and lantus and novolog doses were adjusted throughout her stay At discharge she was advised to decrease her dose of Lantus to 20 units BID and monitor her blood glucose closely at home and increase the dose slowly She will follow up with her PCP for further management of her diabetes (3) Wound infection after surgery Qualifiers: Encounter type: subsequent encounter Qualified Code(s): T81.4XXD - Infection following a procedure, subsequent encounter Assessment/Plan: Wound RN saw patient and placed a silvadine dressing on patients wound Patients wound cx from previous presentation to ER grew enterococcus Faecalis susceptible to vancomycin Patient completed 7 days of vancomycin while she was hospitalized Wound appeared much better at discharge with good granulation tissue and infection appeared to have completely resolved Patient given wound dressing and discharge and will change in 7 days She was also referred to wound clinic Patients chronic medical problems were all stable during her stay and she was discharged home in stable condition. She will follow up with her PCP regarding her chronic medical conditions. - ALLERGIES Allergies/Adverse Reactions: Allergies Allergy/AdvReac Type Severity Reaction Status Date / Time sulfamethoxazole Allergy Intermediate rash/ Verified 04/24/17 19:25 [From Bactrim] adhesive Allergy Rash Verified 04/24/17 19:25 amoxicillin [Amoxicillin] Allergy unknown Verified 04/24/17 19:25 oxycodone [Oxycodone] AdvReac Intermediate hallucinate, Verified 04/24/17 19:25 vomit promethazine HCl * AdvReac Mild Nausea Verified 04/24/17 19:25 [From Phenergan] - MEDICATIONS Home Medications: Ambulatory Orders Medication Instructions Recorded Confirmed Atorvastatin Calcium [Lipitor] 80 mg PO DAILY 05/24/13 04/25/17 Insulin Glargine,Hum.rec.anlog 32 unit SQ QAM 05/24/13 04/25/17 [Lantus] Levothyroxine Sodium [Synthroid] 225 mcg PO DAILY 05/24/13 04/25/17 Lorazepam [Ativan] 1 mg PO PRN PRN 08/29/13 04/25/17 Insulin Glargine,Hum.rec.anlog 27 units SUBQ DAILY 09/05/13 04/25/17 [Lantus Solostar] Amitriptyline [Elavil] 50 mg PO QPM 07/03/14 04/25/17 Pantoprazole [Protonix] 40 mg PO DAILY 01/17/15 04/25/17 Venlafaxine ER [Effexor ER] 150 mg PO DAILY 08/27/15 04/25/17 Cyclobenzaprine [Flexeril] 10 mg PO TID PRN #15 tablet 12/01/15 04/25/17 Insulin Glulisine [Apidra] 15 unit SQ TIDWM 10/02/16 10/02/16 Lisinopril 20 mg PO DAILY 10/02/16 04/25/17 Metoprolol Tartrate [Lopressor] 50 mg PO BID 10/02/16 04/25/17 Furosemide [Lasix] 80 mg PO DAILY 04/11/17 04/25/17 Mupirocin 1 applic TP TID #15 oint...g. 04/11/17 Spironolactone 25 mg PO DAILY 04/11/17 04/25/17 Ciprofloxacin HCl [Cipro] 500 mg PO BID #14 tablet 05/01/17 HYDROmorphone [Dilaudid] 8 mg PO Q4H #0 05/01/17 04/11/17 HYDROmorphone [Dilaudid] 8 mg PO Q4H #30 tablet 05/01/17 Metronidazole [Flagyl] 500 mg PO QID #28 tablet 05/01/17 - PHYSICAL EXAM AT DISCHARGE General Appearance: positive: No acute distress, Alert Eyes Bilateral: positive: Normal inspection, PERRL, EOMI, No lid inflammation, Conjunctivae nml, No scleral icterus ENT: positive: ENT inspection nml, Pharynx nml, No signs of dehydration. negative: Purulent nasal drainage, Pharyngeal erythema, Oral lesions Neck: positive: Nml inspection, Thyroid nml, No JVD, Trachea midline. negative : Thyromegaly, Lymphadenopathy (R), Lymphadenopathy (L), Stiff neck, Carotid bruit, Tracheal deviation Respiratory: positive: Chest non-tender, No respiratory distress, Breath sounds nml. negative: Wheezes, Rales, Rhonchi Cardiovascular: positive: Regular rate & rhythm, No murmur, No gallop Peripheral Pulses: positive: 2+ Abdomen: positive: No organomegaly, Nml bowel sounds, Tenderness (Right upper quadrant, mild, improving). negative: Guarding, Rebound, Hepatomegaly Back: positive: Nml inspection. negative: CVA tenderness (R), CVA tenderness (L ) Skin: positive: Other (Wound on the chest wall appears to be healing well with good granulation tissue. ) Extremities: positive: No pedal edema, Other (Right arm swollen secondary to contrast extravacation ) Neurologic/Psychiatric: positive: Oriented x3, CN's nml (2-12), Motor nml, Sensation nml, Mood/affect nml - LABS Result Diagrams: 05/01/17 05:54 05/01/17 05:54 Other Lab Results: Laboratory Results WBC 4.8 x10^3/uL (4.8-10.8) 05/01/17 05:54 RBC 3.68 10^6/uL (4.20-5.40) L 05/01/17 05:54 Hgb 11.0 g/dL (12.0-16.0) L 05/01/17 05:54 Hct 34.3 % (37.0-47.0) L 05/01/17 05:54 MCV 93.4 fL (81.0-99.0) 05/01/17 05:54 MCH 29.9 pg (27.0-31.0) 05/01/17 05:54 MCHC 32.1 g/dL (32.0-36.0) 05/01/17 05:54 RDW 15.8 % (12.0-15.0) H 05/01/17 05:54 Plt Count 154 10^3/uL (130-450) 05/01/17 05:54 MPV 8.9 fL (7.9-10.8) 05/01/17 05:54 Neut # 3.1 10^3/uL (1.5-6.6) 05/01/17 05:54 Lymph # 1.1 10^3/uL (1.5-3.5) L 05/01/17 05:54 [place] # 0.5 10^3/uL (0.0-1.0) 05/01/17 05:54 Eos # 0.1 10^3/uL (0.0-0.7) 05/01/17 05:54 Baso # 0.0 10^3/uL (0.0-0.1) 05/01/17 05:54 Absolute Nucleated RBC 0.00 x10^3/uL 05/01/17 05:54 Nucleated RBC % 0.0 /100WBC 05/01/17 05:54 Platelet Estimate NORMAL (130-450,000) (NORMAL) 04/25/17 05:15 ESR 68 mm/Hr (0-20) H 05/01/17 05:54 PT 11.5 secs (9.9-12.6) 04/25/17 05:15 INR 1.0 (0.8-1.2) 04/25/17 05:15 VBG pH 7.436 (7.31-7.41) H 05/01/17 05:54 VBG pCO2 30.0 mmHg (41-51) L 04/25/17 00:00 VBG pO2 84.2 mmHg (25-47) H 04/25/17 00:00 VBG HCO3 14.6 mmol/L (23-28) L 04/25/17 00:00 VBG Total CO2 15.5 mmol/L (24-29) L 04/25/17 00:00 VBG O2 Saturation 96.0 % (60-80) H 04/25/17 00:00 VBG Base Excess -10.4 mmol/L (-2 - +2) L 04/25/17 00:00 Ionized Calcium 1.03 mmol/L (1.15-1.33) L 05/01/17 05:54 Sodium 137 mmol/L (135-145) 05/01/17 05:54 Potassium 4.1 mmol/L (3.5-5.0) 05/01/17 05:54 Chloride 101 mmol/L (101-111) 05/01/17 05:54 Carbon Dioxide 28 mmol/L (21-32) 05/01/17 05:54 Anion Gap 8.0 (6-13) 05/01/17 05:54 BUN 16 mg/dL (6-20) 05/01/17 05:54 Creatinine 0.8 mg/dL (0.4-1.0) 05/01/17 05:54 Estimated GFR (MDRD) 80 (>89) L 05/01/17 05:54 Glucose 173 mg/dL (70-100) H 05/01/17 05:54 POC Whole Bld Glucose 116 mg/dL (70 - 100) H 05/01/17 11:31 Glycated Hemoglobin 10.7 % (4.6-6.2) H 04/25/17 00:00 Estim Average Glucose 260 (70-100) H 04/25/17 00:00 Calcium 8.0 mg/dL (8.5-10.3) L 05/01/17 05:54 Ionized Calcium YES 05/01/17 05:54 Phosphorus 4.7 mg/dL (2.5-4.6) H 05/01/17 05:54 Magnesium 1.6 mg/dL (1.7-2.8) L 05/01/17 05:54 Total Bilirubin 0.3 mg/dL (0.2-1.0) 05/01/17 05:54 AST 19 IU/L (10-42) 05/01/17 05:54 ALT 30 IU/L (10-60) 05/01/17 05:54 Alkaline Phosphatase 126 IU/L (42-121) H 05/01/17 05:54 Troponin I < 0.04 ng/mL (<0.49) 04/25/17 05:15 C-Reactive Protein 1.3 mg/dL (0-1.0) H 05/01/17 05:54 Total Protein 5.6 g/dL (6.7-8.2) L 05/01/17 05:54 Albumin 2.5 g/dL (3.2-5.5) L 05/01/17 05:54 Globulin 3.1 g/dL (2.1-4.2) 05/01/17 05:54 Albumin/Globulin Ratio 0.8 (1.0-2.2) L 05/01/17 05:54 Lipase 16 U/L (22-51) L 04/24/17 22:08 Urine Color YELLOW 04/24/17 23:00 Urine Clarity CLEAR (CLEAR) 04/24/17 23:00 Urine pH 6.0 PH (5.0-7.5) 04/24/17 23:00 Ur Specific [place] 1.020 (1.002-1.030) 04/24/17 23:00 Urine Protein NEGATIVE mg/dL (NEGATIVE) 04/24/17 23:00 Urine Glucose (UA) >=1000 mg/dL (NEGATIVE) H 04/24/17 23:00 Urine Ketones >=80 mg/dL (NEGATIVE) H 04/24/17 23:00 Urine Occult Blood TRACE-INTA (NEGATIVE) 04/24/17 23:00 Urine Nitrite NEGATIVE (NEGATIVE) 04/24/17 23:00 Urine Bilirubin NEGATIVE (NEGATIVE) 04/24/17 23:00 Urine Urobilinogen 0.2 (NORMAL) E.U./dL (NORMAL) 04/24/17 23:00 Ur Leukocyte Esterase NEGATIVE (NEGATIVE) 04/24/17 23:00 Ur Microscopic Review NOT INDICATED 04/24/17 23:00 Urine Culture Comments NOT INDICATED 04/24/17 23:00 Last Dose Date 04-25-17 04/26/17 01:42 Last Dose Time 1000 04/26/17 01:42 Vancomycin Trough 17.7 ug/mL (5.0-15.0) H 04/26/17 01:42 Serum Ketones SMALL (NEGATIVE) H 04/25/17 03:00 - DIAGNOSTIC IMAGING Diagnostic Imaging Results: Final report reviewed Diagnostic Imaging Results Comments: Echocardiogram Conclusions: 1. Left ventricle size is normal. Left ventricular wall thickness is normal. Overall left ventricular systolic function is lower limits of normal with an ejection fraction of 50-55% 2. The right ventricular size is normal. Paradoxical septal motion consistent with right ventricular pacing. 3. No significant valvular abnormality CT abdomen/pelvis Impression: Tiny fluid collection at the posterior inferior liver margin, suspicious for small abscess. No evidence of intrahepatic mass. Postoperative changes of cholecystectomy. CT abdomen/pelvis 05/01/2017 Impression: 1. No kidney stone 2. No definite intra-abdominal abscess demonstrated on this noncontrast CT scan. Sensitivity and specificity are reduced due to lack of intravenous contrast. 3. No evidence for small bowel obstruction. Moderate amount of retained fecal matter within the colon. Venous duplex right upper extremity Impression: No evidence of DVT - FOLLOW UP Follow Up: Patient prescribed 7 days of Flagyl and ciprofloxacin to complete a 10 day course of antibiotics for her intra-abdominal abscess/infection. The patient did complete 7 days of vancomycin during hospitalization for her wound infection. The patient's wound appeared to be healing well and she will follow- up with wound clinic for further dressing and wound care. The patient was prescribed a short duration of pain medication as she continued to have abdominal pain from infection during her stay. Patient's DKA resolved during hospitalization and she had several episodes of hypoglycemia the patient's Lantus dose was decreased to 20 units twice daily and she was asked to watch her blood sugars carefully at home and titrate the Lantus dose slowly. Patient will follow up with her primary care physician regarding further management of her diabetes and chronic medical problems. - TIME SPENT Time Spent in Discharge (Minutes): 45 (Fax to PCP)
== END 2017-05-01 13:30 | disposition home or self-care (01) | DRG 862 ==
LOC: ED 19:12 → ICU 23:28 → MS2 04-26 19:11
PROVIDERS: ADMIT Internal Medicine; ATTEND Internal Medicine
DX: T81.4XXA Infection following a procedure, initial encounter (principal); E10.10 Type 1 diabetes mellitus with ketoacidosis without coma; K65.1 Peritoneal abscess; I44.2 Atrioventricular block, complete; I50.9 Heart failure, unspecified; I11.0 Hypertensive heart disease with heart failure; B95.2 Enterococcus as the cause of diseases classified elsewhere; Z79.4 Long term (current) use of insulin; E03.9 Hypothyroidism, unspecified; G89.4 Chronic pain syndrome; F32.9 Major depressive disorder, single episode, unspecified; F43.10 Post-traumatic stress disorder, unspecified; F41.0 Panic disorder [episodic paroxysmal anxiety]; F40.240 Claustrophobia; E05.00 Thyrotoxicosis with diffuse goiter without thyrotoxic crisis or storm; E10.42 Type 1 diabetes mellitus with diabetic polyneuropathy; K21.9 Gastro-esophageal reflux disease without esophagitis; M10.9 Gout, unspecified; Z95.0 Presence of cardiac pacemaker; Z86.711 Personal history of pulmonary embolism; Z79.891 Long term (current) use of opiate analgesic; Z79.899 Other long term (current) drug therapy
CPT/HCPCS: 36415; 74177; 74178; 80048; 80053; 81001; 81003; 82009; 82310; 82330; 82803; 82947; 83036; 83690; 83735; 84100; 84484; 85025; 85610; 85651; 86140; 87070; 87086; 87150; 87205; 93306; 96361; 96365; 96375; 96376; 99283; 99284

== ENCOUNTER 2017-07-01 21:03 | Emergency (ER) | payer MEDICAID ==
--- NOTE | 2017-07-01 22:03 | XRAY Preliminary Report ---
Exam: XR CHEST 1 VIEW IMPRESSION: No acute cardiopulmonary process. [facility] SITE ID: [id number]
--- NOTE | 2017-07-01 22:05 | XRAY Report ---
EXAM: CHEST RADIOGRAPHY EXAM DATE: 07/01/2017 09:38 PM. CLINICAL HISTORY: Chest pain, nausea, vomiting. COMPARISON: None. TECHNIQUE: 1 view. FINDINGS: Lungs/Pleura: No focal opacities evident. No pleural effusion. No pneumothorax. Mediastinum: Within exam limitations, the cardiomediastinal contour is normal. Other: A left-sided pacemaker generator noted with removed leads. IMPRESSION: No acute cardiopulmonary process. [facility] Referring Provider Line: [phone] SITE ID: [id number]
[2017-07-01 22:08] LABS: BILIRUBIN,URINE NEGATIVE (NEGATIVE)
[2017-07-01 22:10] LABS: UA w/ MICROSCOPIC CHARGE YES
[2017-07-01 22:11] LABS: UR CULTURE IF IND NOT INDICATED; WBC,URINE 0-3 /HPF (0-5)
[2017-07-01 22:17] LABS: BASOPHILS % (AUTO) 0.7 %; EOSINOPHILS # (AUTO) 0.1 10^3/uL (0.0-0.7); EOSINOPHILS % (AUTO) 1.5 %; HCT - HEMATOCRIT 34.1 % (37.0-47.0); HGB - HEMOGLOBIN 11.8 g/dL (12.0-16.0); LYMPHOCYTES # (AUTO) 1.3 10^3/uL (1.5-3.5); MEAN CORPUSCULAR HEMOGLOBIN 31.5 pg (27.0-31.0); MEAN CORPUSCULAR HGB CONC 34.6 g/dL (32.0-36.0); MEAN CORPUSCULAR VOLUME 91.1 fL (81.0-99.0); MEAN PLATELET VOLUME 7.7 fL (7.9-10.8); MONOCYTES # (AUTO) 0.4 10^3/uL (0.0-1.0); MONOCYTES % (AUTO) 6.8 %; NEUTROPHILS # (AUTO) 4.5 10^3/uL (1.5-6.6); RED BLOOD COUNT 3.75 10^6/uL (4.20-5.40); RED CELL DISTRIBUTION WIDTH 14.9 % (12.0-15.0); UNCORRECTED WHITE BLOOD COUNT 6.3 x10^3/uL; WHITE BLOOD COUNT 6.3 x10^3/uL (4.8-10.8)
[2017-07-01 22:25] LABS: VBG PH 7.435 (7.31-7.41)
[2017-07-01 22:26] LABS: VBG BASE EXCESS 3.1 mmol/L (-2 - +2); VBG OXYGEN SATURATION 93.5 % (60-80)
[2017-07-01 22:31] LABS: ALBUMIN/GLOBULIN RATIO 0.9 (1.0-2.2); BILIRUBIN,TOTAL 0.4 mg/dL (0.2-1.0); BUN - BLOOD UREA NITROGEN 20 mg/dL (6-20); CARBON DIOXIDE - CO2 27 mmol/L (21-32); CHLORIDE 100 mmol/L (101-111); CREATININE 0.9 mg/dL (0.4-1.0); GFR - MDRD 70 (>89); GLUCOSE 112 mg/dL (70-100); LIPASE 17 U/L (22-51); MAGNESIUM 1.3 mg/dL (1.7-2.8); PHOSPHORUS 3.5 mg/dL (2.5-4.6); POTASSIUM 3.4 mmol/L (3.5-5.0); SODIUM 139 mmol/L (135-145); TOTAL PROTEIN 6.6 g/dL (6.7-8.2)
[2017-07-01] MEDS ORDERED: SODIUM CHLORIDE 0.9% 1,000 ML IV ONE (22:34)
[2017-07-01] MEDS ORDERED: MORPHINE 10 MG/ML VIAL IVP STA (22:56)
[2017-07-01] MEDS ORDERED: MORPHINE 10 MG/ML VIAL ONE (23:11)
--- NOTE | 2017-07-02 00:11 | ED Physician Documentation ---
PD HPI CHEST PAIN - Stated complaint Stated Complaint: CHEST/ABD PX - Chief complaint Chief Complaint: Cardiac - History obtained from History obtained from: Patient - History of Present Illness Timing - onset: How many days ago (2) Timing - details: Gradual onset, Still present Quality: Sharp. No: Pressure, Tightness Location: Substernal, Epigastric Worsened by: Eating Associated symptoms: Nausea. 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 Patient has had three pacemakers placed since that time. Patient states that for the last couple of days she has not been feeling well and has some epigastric pain and diarrhea. Patient also noticed that her heart rate felt slow. Patient states that she was supposed to have it paced at 80, but her rate was much slower. Patient complained of some mild chest pain during the same time and nausea but no vomiting. Review of Systems Constitutional: denies: Fever, Chills Eyes: denies: Decreased vision, Photophobia Ears: denies: Ear pain, Drainage/discharge Nose: denies: Congestion Throat: denies: Oral lesions / sores, Sore throat Cardiac: reports: Chest pain / pressure. denies: Palpitations, Pedal edema Respiratory: denies: Cough, Wheezing GI: reports: Abdominal Pain, Nausea. 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: Endometriosis, Fibroids, Other : None HEENT: None Psych: Depression, Anxiety, Bipolar disorder, Panic attacks, Post traumatic stress disorder, Claustrophobia Musculoskeletal: Gout, Chronic back pain Derm: Other Other Past Medical History: SVT; Heart block - Past Surgical History Past Surgical History: Yes General: Cholecystectomy, Appendectomy, Hiatal hernia repair, Colonoscopy, EGD /INSPECTOR REPAIRER: Oophrectomy, Other Cardiovascular: Pacemaker, Other HEENT: Myringotomy (tubes), Tonsil/Adenoidectomy, Other - Present Medications Home Medications: Ambulatory Orders Medication Instructions Recorded Confirmed Atorvastatin Calcium [Lipitor] 80 mg PO DAILY 05/24/13 04/25/17 Insulin Glargine,Hum.rec.anlog 32 unit SQ QAM 05/24/13 04/25/17 [Lantus] Levothyroxine Sodium [Synthroid] 225 mcg PO DAILY 05/24/13 04/25/17 Lorazepam [Ativan] 1 mg PO PRN PRN 08/29/13 04/25/17 Insulin Glargine,Hum.rec.anlog 27 units SUBQ DAILY 09/05/13 04/25/17 [Lantus Solostar] Amitriptyline [Elavil] 50 mg PO QPM 07/03/14 04/25/17 Pantoprazole [Protonix] 40 mg PO DAILY 01/17/15 04/25/17 Venlafaxine ER [Effexor ER] 150 mg PO DAILY 08/27/15 04/25/17 Cyclobenzaprine [Flexeril] 10 mg PO TID PRN #15 tablet 12/01/15 04/25/17 Insulin Glulisine [Apidra] 15 unit SQ TIDWM 10/02/16 10/02/16 Lisinopril 20 mg PO DAILY 10/02/16 04/25/17 Metoprolol Tartrate [Lopressor] 50 mg PO BID 10/02/16 04/25/17 Furosemide [Lasix] 80 mg PO DAILY 04/11/17 04/25/17 Mupirocin 1 applic TP TID #15 oint...g. 04/11/17 Spironolactone 25 mg PO DAILY 04/11/17 04/25/17 Ciprofloxacin HCl [Cipro] 500 mg PO BID #14 tablet 05/01/17 HYDROmorphone [Dilaudid] 8 mg PO Q4H #0 05/01/17 04/11/17 HYDROmorphone [Dilaudid] 8 mg PO Q4H #30 tablet 05/01/17 Metronidazole [Flagyl] 500 mg PO QID #28 tablet 05/01/17 - Allergies Allergies/Adverse Reactions: Allergies Allergy/AdvReac Type Severity Reaction Status Date / Time sulfamethoxazole Allergy Intermediate rash/ Verified 07/01/17 21:16 [From Bactrim] adhesive Allergy Rash Verified 07/01/17 21:16 amoxicillin [Amoxicillin] Allergy unknown Verified 07/01/17 21:16 oxycodone [Oxycodone] AdvReac Intermediate hallucinate, Verified 07/01/17 21:16 vomit promethazine HCl * AdvReac Mild Nausea Verified 07/01/17 21:16 [From Phenergan] - Social History Does the pt smoke?: No Smoking Status: Never smoker Does the pt drink ETOH?: No Does the pt have substance abuse?: No - Immunizations Immunizations are current?: Yes - POLST Patient has POLST: No POLST Status: Full Code PD ED PE NORMAL - Vitals Vital signs reviewed: Yes - General General: Alert and oriented X 3 - HEENT HEENT: Atraumatic, PERRL - Neck Neck: Supple, no meningeal sign - Respiratory Respiratory: No respiratory distress, Clear bilaterally - Derm Derm: Normal color, Warm and dry, No rash - Extremities Extremities: No deformity, No calf tenderness / cord - Neuro Neuro: Alert and oriented X 3, No motor deficit, No sensory deficit, Normal speech Eye Opening: Spontaneous Motor: Obeys Commands Verbal: Oriented GCS Score: 15 - Psych Psych: Normal mood PD ED PE EXPANDED - HEENT HEENT: Dry mucous membranes - Neck Neck: JVD present - Cardiac Cardiac: Regular Rate, Abnormal Rhythm - Abdomen Abdomen: Tender to palpation, Generalized/diffuse. No: Rebound, Guarding Results - Vitals Vitals: Vital Signs - 24 hr 07/01/17 07/01/17 07/01/17 21:05 22:43 23:37 Temperature 36.4 C L Heart Rate 56 L 76 65 Respiratory 18 20 21 Rate Blood Pressure 178/61 H 159/57 H 186/61 H O2 Saturation 100 99 98 07/02/17 07/02/17 07/02/17 00:12 00:50 01:35 Temperature 36.8 C Heart Rate 56 L 69 78 Respiratory 26 H 25 H 16 Rate Blood Pressure 184/58 H 160/59 H 161/55 H O2 Saturation 100 98 98 Oxygen O2 Source Room air - EKG (time done) 4584 Rate: Rate (enter#) (55) Rhythm: NSR [place]: Normal Intervals: Normal MS QRS: Normal Ischemia: Normal ST segments Compare to prior EKG: Changed from prior EKG - Labs Labs: Laboratory Tests 07/01/17 07/01/17 07/01/17 21:57 22:10 22:10 WBC 6.3 RBC 3.75 L Hgb 11.8 L Hct 34.1 L MCV 91.1 MCH 31.5 H MCHC 34.6 RDW 14.9 Plt Count 252 MPV 7.7 L Neut # 4.5 Lymph # 1.3 L [place] # 0.4 Eos # 0.1 Baso # 0.0 Absolute Nucleated RBC 0.00 Nucleated RBC % 0.0 VBG pH VBG pCO2 VBG pO2 VBG HCO3 VBG Total CO2 VBG O2 Saturation VBG Base Excess Sodium 139 Potassium 3.4 L Chloride 100 L Carbon Dioxide 27 Anion Gap 12.0 BUN 20 Creatinine 0.9 Estimated GFR (MDRD) 70 L Glucose 112 H POC Whole Bld Glucose Calcium 9.0 Phosphorus 3.5 Magnesium 1.3 L Total Bilirubin 0.4 AST 20 ALT 14 Alkaline Phosphatase 90 Troponin I B-Natriuretic Peptide Total Protein 6.6 L Albumin 3.1 L Globulin 3.5 Albumin/Globulin Ratio 0.9 L Lipase 17 L Urine Color RED/BLOODY Urine Clarity BLOODY Urine pH 6.0 Ur Specific [place] 1.025 Urine Protein 30 H Urine Glucose (UA) NEGATIVE Urine Ketones NEGATIVE Urine Occult Blood LARGE H Urine Nitrite NEGATIVE Urine Bilirubin NEGATIVE Urine Urobilinogen 0.2 (NORMAL) Ur Leukocyte Esterase NEGATIVE Urine RBC TNTC H Urine WBC 0-3 Ur Squamous Epith Cells NONE SEEN Urine Bacteria None Seen Ur Microscopic Review INDICATED Urine Culture Comments NOT INDICATED Serum Ketones NEGATIVE 07/01/17 07/01/17 07/01/17 22:10 22:10 22:10 WBC RBC Hgb Hct MCV MCH MCHC RDW Plt Count MPV Neut # Lymph # [place] # Eos # Baso # Absolute Nucleated RBC Nucleated RBC % VBG pH 7.435 H VBG pCO2 42.2 VBG pO2 63.5 H VBG HCO3 27.7 VBG Total CO2 29.0 VBG O2 Saturation 93.5 H VBG Base Excess 3.1 H Sodium Potassium Chloride Carbon Dioxide Anion Gap BUN Creatinine Estimated GFR (MDRD) Glucose POC Whole Bld Glucose Calcium Phosphorus Magnesium Total Bilirubin AST ALT Alkaline Phosphatase Troponin I < 0.04 B-Natriuretic Peptide 203 H Total Protein Albumin Globulin Albumin/Globulin Ratio Lipase Urine Color Urine Clarity Urine pH Ur Specific [place] Urine Protein Urine Glucose (UA) Urine Ketones Urine Occult Blood Urine Nitrite Urine Bilirubin Urine Urobilinogen Ur Leukocyte Esterase Urine RBC Urine WBC Ur Squamous Epith Cells Urine Bacteria Ur Microscopic Review Urine Culture Comments Serum Ketones 07/01/17 07/02/17 23:54 00:34 WBC RBC Hgb Hct MCV MCH MCHC RDW Plt Count MPV Neut # Lymph # [place] # Eos # Baso # Absolute Nucleated RBC Nucleated RBC % VBG pH VBG pCO2 VBG pO2 VBG HCO3 VBG Total CO2 VBG O2 Saturation VBG Base Excess Sodium Potassium Chloride Carbon Dioxide Anion Gap BUN Creatinine Estimated GFR (MDRD) Glucose POC Whole Bld Glucose 61 L 116 H Calcium Phosphorus Magnesium Total Bilirubin AST ALT Alkaline Phosphatase Troponin I B-Natriuretic Peptide Total Protein Albumin Globulin Albumin/Globulin Ratio Lipase Urine Color Urine Clarity Urine pH Ur Specific [place] Urine Protein Urine Glucose (UA) Urine Ketones Urine Occult Blood Urine Nitrite Urine Bilirubin Urine Urobilinogen Ur Leukocyte Esterase Urine RBC Urine WBC Ur Squamous Epith Cells Urine Bacteria Ur Microscopic Review Urine Culture Comments Serum Ketones - Rads (name of study) chest x-ray Radiology: Final report received (no acute abnormality) PD MEDICAL DECISION MAKING - ED course Complexity details: reviewed old records, reviewed results, re-evaluated patient , considered differential, d/w patient, d/w decorating consultant ED course: Patient was seen and examined at bedside. ekg was performed and showed what appeared to be nsr but with no capture of the pacer. IV access was gained and labs were drawn. chest x-ray was performed and was within normal limits. Patient's labs were relatively unremarkable, but patient's rhythm was concerning for heart block. (where patient had all of her procedures done), was contacted and the case was discussed with EP attending who recommended isoproterenol, pacing as needed and transfer to a cardiology based unit. [facility] and [facility] in [place] all were within a bed so was contacted again. Patient was accepted by Dr. Roper. Arrangements were made for transfer. When the isoproterenol was started patient had multiple pvcs and was stopped. Patient went back to her basal rate of 60 but would fluctuate between what would be a sinus rhythm to a block. Patient required transfer by air due to the distance of travel. Departure - Departure Disposition: 02 Transfer Acute Care Hosp Clinical Impression: Pacemaker complications Condition: Critical
[2017-07-02] MEDS ORDERED: HYDROmorphone 1 MG/ML SYRINGE IVP STA ×2 (00:58→03:11)
[2017-07-02] MEDS ORDERED: HYDROmorphone 1 MG/ML SYRINGE ONE ×2 (01:21→03:18)
[2017-07-02] MEDS ORDERED: ISOPROTERENOL IVP STA (01:30)
[2017-07-02] MEDS ORDERED: SODIUM CHLORIDE 0.9% IVP STA (01:30)
[2017-07-02] MEDS ORDERED: ISOPROTERENOL ONE ×2 (01:49→01:50)
[2017-07-02] MEDS ORDERED: DEXTROSE 50% ABBOJECT 25 GM/50 ML SYRINGE ONE (02:19)
[2017-07-02 02:41] VITALS: BP 141/52
[2017-07-02] MEDS ORDERED: DEXTROSE 50% ABBOJECT 25 GM/50 ML SYRINGE IVP STA (02:46)
== END 2017-07-02 03:20 | disposition short-term general hospital (02) ==
LOC: ED 21:03
DX: T82.897A Other specified complication of cardiac prosthetic devices, implants and grafts, initial encounter (principal); Z95.0 Presence of cardiac pacemaker; I50.9 Heart failure, unspecified; I49.9 Cardiac arrhythmia, unspecified; E10.42 Type 1 diabetes mellitus with diabetic polyneuropathy; Z79.4 Long term (current) use of insulin; E03.9 Hypothyroidism, unspecified; K21.9 Gastro-esophageal reflux disease without esophagitis; M10.9 Gout, unspecified
CPT/HCPCS: 36415; 71010; 80053; 81001; 82009; 82803; 83690; 83735; 83880; 84100; 84484; 85025; 93005; 96361; 96374; 96375; 96376; 99284; 99285; J1170; 81003; 87086

== ENCOUNTER 2017-07-27 11:37 | Emergency (ER) | payer MEDICAID ==
[2017-07-27] MEDS ORDERED: HYDROmorphone 1 MG/ML SYRINGE IVP STA ×4 (12:37→18:41)
[2017-07-27] MEDS ORDERED: SODIUM CHLORIDE 0.9% 1,000 ML IV ONE (12:37)
--- NOTE | 2017-07-27 12:40 | ED Physician Documentation ---
History of Present Illness - Stated complaint Stated Complaint: LOWER LT ABD PX/WOUND CHECK - Chief complaint Chief Complaint: General - History obtained from History obtained from: Patient, Family - History of Present Illness Timing: Other (36-year-old woman with complicated medical history, most recently had to have a pacemaker replaced after failure. In the interim she did have epicardial leads but now has an intracardiac lead standard left-sided permanent pacemaker. Over the last day or so she has had drainage from the site with increased pain at the site, the current pacemaker is 3 weeks old. There is no associated fever or chill. Starting overnight last night she also developed left lower quadrant pain which is sharp and different from prior pains associated with loose stools but not diarrhea but no nausea. No possibility of .) Review of Systems Ten Systems: 10 systems reviewed and negative Constitutional: denies: Fever, Chills Cardiac: denies: Chest pain / pressure, Palpitations Respiratory: denies: Dyspnea, Cough GI: reports: Abdominal Pain. 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, Fibroids, Other : None HEENT: None Psych: Depression, Anxiety, Bipolar disorder, Panic attacks, Post traumatic stress disorder, Claustrophobia Musculoskeletal: Gout, Chronic back pain Derm: Other - Past Surgical History Past Surgical History: Yes General: Cholecystectomy, Appendectomy, Hiatal hernia repair, Colonoscopy, EGD /SERVICE WRITER ADVISOR: Oophrectomy, Other Cardiovascular: Pacemaker, Other HEENT: Myringotomy (tubes), Tonsil/Adenoidectomy, Other - Present Medications Home Medications: Ambulatory Orders Medication Instructions Recorded Confirmed Atorvastatin Calcium [Lipitor] 80 mg PO DAILY 05/24/13 07/27/17 Insulin Glargine,Hum.rec.anlog 32 unit SQ QAM 05/24/13 07/27/17 [Lantus] Levothyroxine Sodium [Synthroid] 250 mcg PO DAILY 05/24/13 07/27/17 Lorazepam [Ativan] 1 mg PO PRN PRN 08/29/13 07/27/17 Insulin Glargine,Hum.rec.anlog 27 units SUBQ DAILY 09/05/13 07/27/17 [Lantus Solostar] Amitriptyline [Elavil] 50 mg PO QPM 07/03/14 07/27/17 Pantoprazole [Protonix] 40 mg PO DAILY 01/17/15 07/27/17 Venlafaxine ER [Effexor ER] 150 mg PO DAILY 08/27/15 07/27/17 Cyclobenzaprine [Flexeril] 10 mg PO TID PRN #15 tablet 12/01/15 07/27/17 Insulin Glulisine [Apidra] 15 unit SQ TIDWM 10/02/16 07/27/17 Lisinopril 10 mg PO DAILY 10/02/16 07/27/17 Metoprolol Tartrate [Lopressor] 25 mg PO BID 10/02/16 07/27/17 Furosemide [Lasix] 80 mg PO DAILY 04/11/17 07/27/17 Mupirocin 1 applic TP TID #15 oint...g. 04/11/17 07/27/17 Spironolactone 25 mg PO DAILY 04/11/17 07/27/17 - Allergies Allergies/Adverse Reactions: Allergies Allergy/AdvReac Type Severity Reaction Status Date / Time sulfamethoxazole Allergy Intermediate rash/ Verified 07/27/17 11:51 [From Bactrim] adhesive Allergy Rash Verified 07/27/17 11:51 amoxicillin [Amoxicillin] Allergy unknown Verified 07/27/17 11:51 oxycodone [Oxycodone] AdvReac Intermediate hallucinate, Verified 07/27/17 11:51 vomit promethazine HCl * AdvReac Mild Nausea Verified 07/27/17 11:51 [From Phenergan] - Social History Does the pt smoke?: No Smoking Status: Never smoker Does the pt drink ETOH?: No Does the pt have substance abuse?: No - Immunizations Immunizations are current?: Yes - POLST Patient has POLST: No POLST Status: Full Code PD ED PE NORMAL - Vitals Vital signs reviewed: Yes - General General: Alert and oriented X 3, No acute distress - HEENT HEENT: PERRL, EOMI - Neck Neck: Supple, no meningeal sign, No bony TTP - Cardiac Cardiac: RRR, No murmur, Other (Pacemaker site left upper chest wall with a tiny amount of purulent drainage that is expressible, no cellulitis, what was expressed was sent for culture.) - Respiratory Respiratory: No respiratory distress, Clear bilaterally - Abdomen Abdomen: Normal bowel sounds, Soft, Other (Moderate left lower quadrant tenderness, no surgical signs.) - Back Back: No CVA TTP, No spinal TTP - Derm Derm: Normal color, Warm and dry - Extremities Extremities: No edema, No calf tenderness / cord - Neuro Neuro: Alert and oriented X 3, Normal speech - Psych Psych: Normal mood, Normal affect Results - Vitals Vitals: Vital Signs - 24 hr 07/27/17 07/27/17 07/27/17 11:44 12:43 13:19 Temperature 36.1 C L 37.1 C Heart Rate 112 H 102 H 102 H Respiratory 20 20 18 Rate Blood Pressure 177/99 H 160/76 H 151/73 H O2 Saturation 100 100 100 07/27/17 07/27/17 07/27/17 13:57 14:30 14:53 Temperature 36.9 C Heart Rate 101 H 98 99 Respiratory 16 19 99 H Rate Blood Pressure 148/85 H 147/85 H 147/85 H O2 Saturation 100 100 07/27/17 07/27/17 07/27/17 16:01 17:25 18:47 Temperature Heart Rate 102 H 98 100 Respiratory 16 18 18 Rate Blood Pressure 124/68 118/63 124/66 O2 Saturation 98 100 100 Oxygen O2 Source Room air - EKG (time done) 1256 Rate: Rate (enter#) (100) Rhythm: Other (Atrial sensed, ventricular paced) Ischemia: Normal ST segments - Labs Labs: Laboratory Tests 07/27/17 07/27/17 07/27/17 12:45 12:45 12:45 WBC RBC Hgb Hct MCV MCH MCHC RDW Plt Count MPV Neut # Lymph # [place] # Eos # Baso # Absolute Nucleated RBC Nucleated RBC % Sodium 133 L Potassium 3.8 Chloride 97 L Carbon Dioxide 25 Anion Gap 11.0 BUN 17 Creatinine 0.5 Estimated GFR (MDRD) 138 Glucose 236 H Calcium 8.4 L Total Bilirubin 0.4 AST 17 ALT 12 Alkaline Phosphatase 99 Total Creatine Kinase 27 CK-MB (CK-2) 3.3 Troponin I 0.29 Total Protein 6.4 L Albumin 3.0 L Globulin 3.4 Albumin/Globulin Ratio 0.9 L Lipase 16 L HCG, Quant < 0.60 Urine Color Urine Clarity Urine pH Ur Specific [place] Urine Protein Urine Glucose (UA) Urine Ketones Urine Occult Blood Urine Nitrite Urine Bilirubin Urine Urobilinogen Ur Leukocyte Esterase Ur Microscopic Review Urine Culture Comments 07/27/17 07/27/17 13:15 15:00 WBC 7.2 RBC 3.82 L Hgb 12.2 Hct 36.2 L MCV 94.7 MCH 31.9 H MCHC 33.7 RDW 15.1 H Plt Count 192 MPV 7.1 L Neut # 5.3 Lymph # 1.1 L [place] # 0.6 Eos # 0.2 Baso # 0.0 Absolute Nucleated RBC 0.00 Nucleated RBC % 0.0 Sodium Potassium Chloride Carbon Dioxide Anion Gap BUN Creatinine Estimated GFR (MDRD) Glucose Calcium Total Bilirubin AST ALT Alkaline Phosphatase Total Creatine Kinase CK-MB (CK-2) Troponin I Total Protein Albumin Globulin Albumin/Globulin Ratio Lipase HCG, Quant Urine Color YELLOW Urine Clarity CLEAR Urine pH 6.0 Ur Specific [place] 1.010 Urine Protein NEGATIVE Urine Glucose (UA) 100 H Urine Ketones NEGATIVE Urine Occult Blood TRACE-INTA Urine Nitrite NEGATIVE Urine Bilirubin NEGATIVE Urine Urobilinogen 0.2 (NORMAL) Ur Leukocyte Esterase NEGATIVE Ur Microscopic Review NOT INDICATED Urine Culture Comments NOT INDICATED - Rads (name of study) 2v chest Radiology: EMP read contemporaneously (L ovarian cyst, constipation) 2v CXR Radiology: EMP read contemporaneously (new leads, NAD) Procedures - General procedure General procedure: She is notoriously difficult for IV access, I personally tried in both brachials with ultrasound and could not thread, ended up placing a 20-gauge IV in the right external jugular vein which latoya and flushed well. PD MEDICAL DECISION MAKING - ED course ED course: 36-year-old woman with complicated recent past medical history presents with small amount of pus from her pacemaker pocket and left lower quadrant pain, found to have ovarian cyst there. Labs are notable for mild troponinemia, no white count. Call to [facility] cardiology for potential transfer at [phone]. Dr Conklin there spoke with me by phone, Given the complexity, she wanted to confer with Dr. Garcia and she called me back after that and preferred that the patient go to the [facility] Accepted by Dr. Juarez at the [facility], [phone], pending bed availability. [place] completed. Departure - Departure Disposition: 02 Transfer Acute Care Hosp Clinical Impression: Left ovarian cyst, Elevated troponin I level Infection of pacemaker pocket Qualifiers: Encounter type: initial encounter Qualified Code(s): T82.7XXA - Infection and inflammatory reaction due to other cardiac and vascular devices, implants and grafts, initial encounter Type 2 diabetes mellitus, uncontrolled Qualifiers: Diabetes mellitus complication status: with hyperglycemia Diabetes mellitus senior financial accountant insulin use: with senior financial accountant use Qualified Code(s): E11.65 - Type 2 diabetes mellitus with hyperglycemia Condition: Serious Discharge Date/Time: 07/27/17 18:49
[2017-07-27] MEDS ORDERED: IOPAMIDOL-300 100 ML VIAL ONE (12:49)
[2017-07-27 13:18] LABS: BASOPHILS % (AUTO) 0.5 %; EOSINOPHILS # (AUTO) 0.2 10^3/uL (0.0-0.7); EOSINOPHILS % (AUTO) 2.7 %; HGB - HEMOGLOBIN 12.2 g/dL (12.0-16.0); LYMPHOCYTES # (AUTO) 1.1 10^3/uL (1.5-3.5); LYMPHOCYTES % (AUTO) 15.2 %; MEAN CORPUSCULAR HEMOGLOBIN 31.9 pg (27.0-31.0); MEAN CORPUSCULAR HGB CONC 33.7 g/dL (32.0-36.0); MEAN CORPUSCULAR VOLUME 94.7 fL (81.0-99.0); MEAN PLATELET VOLUME 7.1 fL (7.9-10.8); MONOCYTES # (AUTO) 0.6 10^3/uL (0.0-1.0); MONOCYTES % (AUTO) 8.2 %; NEUTROPHILS # (AUTO) 5.3 10^3/uL (1.5-6.6); NEUTROPHILS % (AUTO) 73.4 %; PLT - PLATELET COUNT 192 10^3/uL (130-450); RED BLOOD COUNT 3.82 10^6/uL (4.20-5.40); RED CELL DISTRIBUTION WIDTH 15.1 % (12.0-15.0); WHITE BLOOD COUNT 7.2 x10^3/uL (4.8-10.8)
[2017-07-27 13:21] LABS: ALBUMIN/GLOBULIN RATIO 0.9 (1.0-2.2); BILIRUBIN,TOTAL 0.4 mg/dL (0.2-1.0); CALCIUM 8.4 mg/dL (8.5-10.3); CREATININE 0.5 mg/dL (0.4-1.0); TOTAL PROTEIN 6.4 g/dL (6.7-8.2)
[2017-07-27 13:23] LABS: TROPONIN I 0.29 ng/mL (<0.49)
[2017-07-27 13:25] LABS: CREATINE KINASE MB 3.3 ng/mL (0.6-6.3)
[2017-07-27] MEDS ORDERED: IOPAMIDOL-300 100 ML VIAL IVP ONE (13:46)
--- NOTE | 2017-07-27 13:51 | XRAY Report ---
EXAM: CHEST RADIOGRAPHY EXAM DATE: 07/27/2017 01:38 PM. CLINICAL HISTORY: Pacemaker infection. COMPARISON: 07/01/2017. TECHNIQUE: 2 views. FINDINGS: Lungs/Pleura: No focal opacities evident. No pleural effusion. No pneumothorax. Normal volumes. Mediastinum: There is a pacemaker device overlying the left chest which appears to have rotated appro ximately 90 degrees. There are new cardiac leads overlying right atrium and right ventricle. The hear t size is normal. Other: None. IMPRESSION: 1. New pacemaker leads. 2. Clear lungs without pneumothorax. [facility] Referring Provider Line: [phone] SITE ID: [id number]
--- NOTE | 2017-07-27 14:17 | CT Report ---
EXAM: CT ABDOMEN AND PELVIS EXAM DATE: 07/27/2017 01:57 PM. CLINICAL HISTORY: IV only, LLQ pain. COMPARISONS: 05/01/2017. TECHNIQUE: Routine helical CT imaging was performed through the abdomen and pelvis. IV contrast: 100M L ISOVUE 300. Enteric contrast: No. Reconstructions: Coronal and sagittal. In accordance with CT protocol optimization, one or more of the following dose reduction techniques w ere utilized for this exam: automated exposure control, adjustment of mA and/or KV based on patient s ize, or use of iterative reconstructive technique. FINDINGS: Lung Bases: Unremarkable. Liver: Normal. No masses. Gallbladder/Bile Ducts: The gallbladder is surgically absent. Spleen: Normal. Pancreas: The pancreas is somewhat small in size but appears homogeneous. Adrenal Glands: Normal. Kidneys: Normal. No masses or hydronephrosis. Peritoneal Cavity/Bowel: There is stool present throughout the colon. There is no small bowel dilatio n or transition zone. No pneumatosis or free air. No free fluid or abscess. Pelvic Organs: The left ovary appears enlarged. There are 2 dominant low density structures in the le ft ovary. Overall, the left ovary measures 6.2 x 5.1 x 6.2 cm. The larger of the 2 low-density lesion s in the left ovary measures 5.1 x 3.4 x 4.6 cm. The uterus appears heterogeneous with findings sugge sting uterine fibroids. The right ovary is not well seen. Urinary bladder is unremarkable. Vasculature: No aneurysms or other significant abnormality. Bones: No significant abnormality. Other: None. IMPRESSION: 1. Enlarged left ovary with 2 ovarian cysts, not excluding salpingitis or hydro-salpinx. 2. Increased colonic stool. 3. Otherwise negative exam. [facility] Referring Provider Line: [phone] SITE ID: [id number]
[2017-07-27] MEDS ORDERED: KETOROLAC 60 MG/2 ML VIAL IVP STA (14:24)
[2017-07-27 15:17] LABS: BILIRUBIN,URINE NEGATIVE (NEGATIVE); GLUCOSE, URINE (UA) 100 mg/dL (NEGATIVE); KETONES,URINE (UA) NEGATIVE (NEGATIVE); LEUKOCYTE ESTERASE, URINE NEGATIVE (NEGATIVE); NITRITE,URINE NEGATIVE (NEGATIVE); OCCULT BLOOD,URINE TRACE-INTA (NEGATIVE); PROTEIN,URINE NEGATIVE (NEGATIVE); UROBILINOGEN,URINE 0.2 (NORMAL) E.U./dL (NORMAL)
[2017-07-27 15:22] LABS: CLARITY,URINE CLEAR (CLEAR)
[2017-07-27 18:49] VITALS: BP 124/66
== END 2017-07-27 18:49 | disposition short-term general hospital (02) ==
LOC: ED 11:37
DX: T82.7XXA Infection and inflammatory reaction due to other cardiac and vascular devices, implants and grafts, initial encounter (principal); Y83.8 Other surgical procedures as the cause of abnormal reaction of the patient, or of later complication, without mention of misadventure at the time of the procedure; N83.202 Unspecified ovarian cyst, left side; R74.8 Abnormal levels of other serum enzymes; E11.65 Type 2 diabetes mellitus with hyperglycemia; E11.42 Type 2 diabetes mellitus with diabetic polyneuropathy; Z79.4 Long term (current) use of insulin; I10 Essential (primary) hypertension; E03.9 Hypothyroidism, unspecified
CPT/HCPCS: 36415; 74177; 80053; 81003; 82550; 82553; 83690; 84484; 84702; 85025; 87070; 87181; 87205; 93005; 96361; 96374; 96375; 96376; 99285; J1170; Q9967; 81001; 87086; 99284

== ENCOUNTER 2017-07-27 18:52 | Outpatient (CLI) | payer MEDICAID | END 2017-07-27 18:53 | disposition short-term general hospital (02) | LOC: EMS 18:52 | PROVIDERS: ATTEND Surgery | DX: R07.9 Chest pain, unspecified (principal) | CPT/HCPCS: A0170; A0425; A0426 ==

== ENCOUNTER 2017-08-16 21:05 | Emergency (ER) | payer MEDICAID ==
[2017-08-16 21:34] LABS: BILIRUBIN,URINE NEGATIVE (NEGATIVE); GLUCOSE, URINE (UA) >=1000 mg/dL (NEGATIVE); KETONES,URINE (UA) NEGATIVE (NEGATIVE); LEUKOCYTE ESTERASE, URINE NEGATIVE (NEGATIVE); NITRITE,URINE NEGATIVE (NEGATIVE); OCCULT BLOOD,URINE TRACE-LYSE (NEGATIVE); PROTEIN,URINE TRACE mg/dL (NEGATIVE); UROBILINOGEN,URINE 0.2 (NORMAL) E.U./dL (NORMAL)
[2017-08-16 21:37] LABS: CLARITY,URINE CLEAR (CLEAR); HCG UR QUAL NEGATIVE
[2017-08-16] MEDS ORDERED: INSULIN REGULAR HUMAN 100 UNIT/1 ML 10 ML MDV IVP STA (22:28)
[2017-08-16] MEDS ORDERED: SODIUM CHLORIDE 0.9% 1,000 ML IV ONE (22:28)
[2017-08-16] MEDS ORDERED: ACETAMINOPHEN 500 MG TABLET PO STA (23:37)
[2017-08-16 23:59] LABS: BASOPHILS % (AUTO) 0.9 %; EOSINOPHILS # (AUTO) 0.1 10^3/uL (0.0-0.7); EOSINOPHILS % (AUTO) 1.5 %; LYMPHOCYTES % (AUTO) 19.8 %; MEAN CORPUSCULAR HEMOGLOBIN 32.6 pg (27.0-31.0); MEAN CORPUSCULAR HGB CONC 34.3 g/dL (32.0-36.0); MEAN CORPUSCULAR VOLUME 95.1 fL (81.0-99.0); MEAN PLATELET VOLUME 7.7 fL (7.9-10.8); MONOCYTES # (AUTO) 0.3 10^3/uL (0.0-1.0); MONOCYTES % (AUTO) 6.9 %; NEUTROPHILS # (AUTO) 3.5 10^3/uL (1.5-6.6); NEUTROPHILS % (AUTO) 70.9 %; PLT - PLATELET COUNT 204 10^3/uL (130-450); RED BLOOD COUNT 3.67 10^6/uL (4.20-5.40); RED CELL DISTRIBUTION WIDTH 14.2 % (12.0-15.0); WHITE BLOOD COUNT 4.9 x10^3/uL (4.8-10.8)
[2017-08-17] LABS: VBG BASE EXCESS -2.9 mmol/L (-2 - +2); VBG PCO2 37.2 mmHg (41-51); VBG PH 7.384 (7.31-7.41); VBG PO2 115.1 mmHg (25-47); VBG TOTAL CO2 22.9 mmol/L (24-29)
--- NOTE | 2017-08-17 00:06 | ED Physician Documentation ---
History of Present Illness - Stated complaint Stated Complaint: HBP/HIGH BLOOD SUGAR - Chief complaint Chief Complaint: Abd Pain - History obtained from History obtained from: Patient - History of Present Illness Timing: Today - Additonal information Additional information: Patient is a 37 year old female with multiple medical issues who is presenting to the emergency department for tooth pain, elevated blood pressure and elevated blood sugar. Patient also states that she has left lower quadrant pain that started today. Review of Systems Constitutional: denies: Fever, Chills, Myalgias Eyes: denies: Loss of vision, Photophobia Ears: reports: Ear pain Nose: denies: Rhinorrhea / runny nose, Congestion Throat: denies: Dental pain / toothache Cardiac: denies: Chest pain / pressure, Palpitations Respiratory: denies: Cough, Hemoptysis GI: reports: Abdominal Pain. 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, Fibroids, Other : None HEENT: None Psych: Depression, Anxiety, Bipolar disorder, Panic attacks, Post traumatic stress disorder, Claustrophobia Musculoskeletal: Gout, Chronic back pain Derm: Other - Past Surgical History Past Surgical History: Yes General: Cholecystectomy, Appendectomy, Hiatal hernia repair, Colonoscopy, EGD /ANIMAL SHELTER MANAGER: Oophrectomy, Other Cardiovascular: Pacemaker, Other HEENT: Myringotomy (tubes), Tonsil/Adenoidectomy, Other - Present Medications Home Medications: Ambulatory Orders Medication Instructions Recorded Confirmed Atorvastatin Calcium [Lipitor] 80 mg PO DAILY 05/24/13 07/27/17 Insulin Glargine,Hum.rec.anlog 32 unit SQ QAM 05/24/13 07/27/17 [Lantus] Levothyroxine Sodium [Synthroid] 250 mcg PO DAILY 05/24/13 07/27/17 Lorazepam [Ativan] 1 mg PO PRN PRN 08/29/13 07/27/17 Insulin Glargine,Hum.rec.anlog 27 units SUBQ DAILY 09/05/13 07/27/17 [Lantus Solostar] Amitriptyline [Elavil] 50 mg PO QPM 07/03/14 07/27/17 Pantoprazole [Protonix] 40 mg PO DAILY 01/17/15 07/27/17 Venlafaxine ER [Effexor ER] 150 mg PO DAILY 08/27/15 07/27/17 Cyclobenzaprine [Flexeril] 10 mg PO TID PRN #15 tablet 12/01/15 07/27/17 Insulin Glulisine [Apidra] 15 unit SQ TIDWM 10/02/16 07/27/17 Lisinopril 10 mg PO DAILY 10/02/16 07/27/17 Metoprolol Tartrate [Lopressor] 25 mg PO BID 10/02/16 07/27/17 Furosemide [Lasix] 80 mg PO DAILY 04/11/17 07/27/17 Mupirocin 1 applic TP TID #15 oint...g. 04/11/17 07/27/17 Spironolactone 25 mg PO DAILY 04/11/17 07/27/17 - Allergies Allergies/Adverse Reactions: Allergies Allergy/AdvReac Type Severity Reaction Status Date / Time sulfamethoxazole Allergy Intermediate rash/ Verified 07/27/17 11:51 [From Bactrim] adhesive Allergy Rash Verified 07/27/17 11:51 amoxicillin [Amoxicillin] Allergy unknown Verified 07/27/17 11:51 oxycodone [Oxycodone] AdvReac Intermediate hallucinate, Verified 07/27/17 11:51 vomit promethazine HCl * AdvReac Mild Nausea Verified 07/27/17 11:51 [From Phenergan] - Social History Does the pt smoke?: No Smoking Status: Never smoker Does the pt drink ETOH?: No Does the pt have substance abuse?: No - Immunizations Immunizations are current?: Yes - POLST Patient has POLST: No POLST Status: Full Code PD ED PE NORMAL - Vitals Vital signs reviewed: Yes - General General: Alert and oriented X 3 - HEENT HEENT: Atraumatic, PERRL - Neck Neck: Supple, no meningeal sign, No JVD - Respiratory Respiratory: No respiratory distress, Clear bilaterally - Abdomen Abdomen: Soft - Derm Derm: Normal color, Warm and dry, No rash - Extremities Extremities: No deformity, No edema - Neuro Neuro: Alert and oriented X 3, No motor deficit, No sensory deficit, Normal speech Eye Opening: Spontaneous Motor: Obeys Commands Verbal: Oriented GCS Score: 15 - Psych Psych: Normal mood PD ED PE EXPANDED - HEENT HEENT: Dry mucous membranes - Cardiac Cardiac: Tachy - Abdomen Abdomen: Tender to palpation, LLQ Results - Vitals Vitals: Vital Signs - 24 hr 08/16/17 08/16/17 08/17/17 21:15 23:40 00:49 Temperature 36.9 C Heart Rate 115 H 100 101 H Respiratory 20 18 25 H Rate Blood Pressure 145/79 H 183/75 H 155/74 H O2 Saturation 97 99 97 08/17/17 01:21 Temperature Heart Rate 98 Respiratory 20 Rate Blood Pressure 158/70 H O2 Saturation 97 Oxygen O2 Source Room air - Labs Labs: Laboratory Tests 08/16/17 08/16/17 08/16/17 21:21 21:26 23:51 WBC 4.9 RBC 3.67 L Hgb 12.0 Hct 34.9 L MCV 95.1 MCH 32.6 H MCHC 34.3 RDW 14.2 Plt Count 204 MPV 7.7 L Neut # 3.5 Lymph # 1.0 L [place] # 0.3 Eos # 0.1 Baso # 0.0 Absolute Nucleated RBC 0.00 Nucleated RBC % 0.0 VBG pH VBG pCO2 VBG pO2 VBG HCO3 VBG Total CO2 VBG O2 Saturation VBG Base Excess Sodium Potassium Chloride Carbon Dioxide Anion Gap BUN Creatinine Estimated GFR (MDRD) Glucose POC Whole Bld Glucose 504 H* Calcium Phosphorus Magnesium Total Bilirubin AST ALT Alkaline Phosphatase Total Protein Albumin Globulin Albumin/Globulin Ratio Lipase Urine Color YELLOW Urine Clarity CLEAR Urine pH 6.0 Ur Specific [place] 1.015 Urine Protein TRACE Urine Glucose (UA) >=1000 H Urine Ketones NEGATIVE Urine Occult Blood TRACE-LYSE Urine Nitrite NEGATIVE Urine Bilirubin NEGATIVE Urine Urobilinogen 0.2 (NORMAL) Ur Leukocyte Esterase NEGATIVE Ur Microscopic Review NOT INDICATED Urine Culture Comments NOT INDICATED Urine HCG, Qual NEGATIVE Serum Ketones 08/16/17 08/16/17 23:51 23:51 WBC RBC Hgb Hct MCV MCH MCHC RDW Plt Count MPV Neut # Lymph # [place] # Eos # Baso # Absolute Nucleated RBC Nucleated RBC % VBG pH 7.384 VBG pCO2 37.2 L VBG pO2 115.1 H VBG HCO3 21.7 L VBG Total CO2 22.9 L VBG O2 Saturation 98.3 H VBG Base Excess -2.9 L Sodium 130 L Potassium 3.9 Chloride 97 L Carbon Dioxide 21 Anion Gap 12.0 BUN 22 H Creatinine 0.8 Estimated GFR (MDRD) 80 L Glucose 493 H POC Whole Bld Glucose Calcium 8.6 Phosphorus 3.2 Magnesium 1.8 Total Bilirubin 0.4 AST 25 ALT 16 Alkaline Phosphatase 99 Total Protein 6.7 Albumin 3.4 Globulin 3.3 Albumin/Globulin Ratio 1.0 Lipase 19 L Urine Color Urine Clarity Urine pH Ur Specific [place] Urine Protein Urine Glucose (UA) Urine Ketones Urine Occult Blood Urine Nitrite Urine Bilirubin Urine Urobilinogen Ur Leukocyte Esterase Ur Microscopic Review Urine Culture Comments Urine HCG, Qual Serum Ketones SMALL H - Rads (name of study) pelvic ultrasound Radiology: Final report received (leiomyoma, no torsion appreciated) PD MEDICAL DECISION MAKING - ED course Complexity details: reviewed old records, reviewed results, re-evaluated patient , considered differential, d/w patient ED course: Patient was seen and examined at bedside. IV access was gained and labs were drawn. Patient was treated with a fluid bolus and IV insulin. Patient was treated with tylenol for pain and ultrasound was ordered. While patient was hyperglycemic she was not in dka. Patient's ultrasound showed no acute abnormalities. Patient required no further work up at this time and was stable for discharge with outpatient follow up. Departure - Departure Disposition: 01 Home, Self Care Clinical Impression: Diabetes mellitus with hyperglycemia, Leiomyoma Condition: Good Instructions: ED Hyperglycemia Diabetic Follow-Up: Amisha Staton DO [Primary Care Provider] - Tomorrow Comments: Your diagnostics today showed elevated blood glucose but no signs of dka. When you get home tonight take your insulin based on your sliding scale. it is important for you to follow up with your doctor this week, and for you to have tighter blood sugar control. You do have fibroids which may be causing your pain , but no sign of torsion. Discharge Date/Time: 08/17/17 01:26
[2017-08-17 00:11] LABS: ALBUMIN 3.4 g/dL (3.2-5.5); ALKALINE PHOSPHATASE 99 IU/L (42-121); ALT ALANINE AMINOTRANSFERASE 16 IU/L (10-60); AST ASPARTATE AMINOTRANSFERASE 25 IU/L (10-42); BILIRUBIN,TOTAL 0.4 mg/dL (0.2-1.0); BUN - BLOOD UREA NITROGEN 22 mg/dL (6-20); CALCIUM 8.6 mg/dL (8.5-10.3); CARBON DIOXIDE - CO2 21 mmol/L (21-32); CHLORIDE 97 mmol/L (101-111); CREATININE 0.8 mg/dL (0.4-1.0); GFR - MDRD 80 (>89); GLUCOSE 493 mg/dL (70-100); LIPASE 19 U/L (22-51); MAGNESIUM 1.8 mg/dL (1.7-2.8); PHOSPHORUS 3.2 mg/dL (2.5-4.6); SODIUM 130 mmol/L (135-145); TOTAL PROTEIN 6.7 g/dL (6.7-8.2)
[2017-08-17 00:12] LABS: KETONES, SERUM (ACETEST) SMALL (NEGATIVE)
--- NOTE | 2017-08-17 00:47 | Ultrasound Report ---
EXAM: PELVIC ULTRASOUND EXAM DATE: 08/17/2017 12:35 AM. CLINICAL HISTORY: Left lower quadrant pain, history of ovarian cysts COMPARISON: 07/27/2017 TECHNIQUE: Realtime transabdominal pelvic scan performed to identify the uterus and adnexa and as an overview of other pelvic structures, followed by transvaginal scan to provide greater detail of the u terus and adnexa, with static image documentation. FINDINGS: LMP: 07/31/2017 Uterus: Uterus is normal in position and normal in configuration. Uterus measures 9.3 x 6.7 x 5.4 cm . Anterior uterine body intramural leiomyoma noted measuring 3.8 x 2.9 x 2.8 cm. A few additional lei omyomas are noted. Endometrium: Endometrium measures 5.9 mm. No suspicious thickening or vascularity. Cervix: No suspicious lesion. Right Ovary: Surgically absent. Left Ovary: Normal in appearance measuring 5.1 x 4.9 x 2.9 cm. Normal blood flow. Fluid: No signficant free fluid. Other: No other significant findings. IMPRESSION: 1. Right ovary is surgically absent. 2. Physiologic appearance of the left ovary. 3. At least 3 uterine leiomyomas are seen dependently intramural and subserosal region, largest measu ring up to 3.8 cm. [facility] Referring Provider Line: [phone] SITE ID: [id number]
[2017-08-17] MEDS ORDERED: KETOROLAC 60 MG/2 ML VIAL IVP STA (01:07)
[2017-08-17 01:22] VITALS: BP 158/70
== END 2017-08-17 01:26 | disposition home or self-care (01) ==
LOC: ED 21:05
DX: E10.65 Type 1 diabetes mellitus with hyperglycemia (principal); D25.1 Intramural leiomyoma of uterus; E03.9 Hypothyroidism, unspecified; I10 Essential (primary) hypertension; E10.42 Type 1 diabetes mellitus with diabetic polyneuropathy; Z90.721 Acquired absence of ovaries, unilateral
CPT/HCPCS: 36415; 76830; 76856; 80053; 81003; 81025; 82009; 82803; 83690; 83735; 84100; 85025; 93975; 96361; 96374; 99284; A9270; J1815; 81001; 87086

== ENCOUNTER 2017-10-08 12:01 | Inpatient (IN) | payer MEDICAID ==
[2017-10-08] MEDS ORDERED: SODIUM CHLORIDE 0.9% 1,000 ML IV ONE (13:23)
--- NOTE | 2017-10-08 13:28 | ED Physician Documentation ---
History of Present Illness - Stated complaint Stated Complaint: HIGH GLUCOSE - Chief complaint Chief Complaint: General - History obtained from History obtained from: Patient - History of Present Illness Timing: Other (37-year-old with long-standing diabetes and episodes of DKA in the past presents with URI symptoms including sore throat and some left lower quadrant pain with rising blood sugars and shortness of breath and rapid breathing like previous episodes of DKA today.) Review of Systems Ten Systems: 10 systems reviewed and negative Constitutional: denies: Fever, Chills Nose: denies: Rhinorrhea / runny nose, Foreign Body Throat: reports: Sore throat Cardiac: denies: Chest pain / pressure, Palpitations Respiratory: reports: Dyspnea, Cough GI: reports: Nausea, Vomiting. 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, Fibroids, Other : None HEENT: None Psych: Depression, Anxiety, Bipolar disorder, Panic attacks, Post traumatic stress disorder, Claustrophobia Musculoskeletal: Gout, Chronic back pain Derm: Other - Past Surgical History Past Surgical History: Yes General: Cholecystectomy, Appendectomy, Hiatal hernia repair, Colonoscopy, EGD /POMOLOGY TEACHER: Oophrectomy, Other Cardiovascular: Pacemaker, Other HEENT: Myringotomy (tubes), Tonsil/Adenoidectomy, Other - Present Medications Home Medications: Ambulatory Orders Medication Instructions Recorded Confirmed Insulin Glargine,Hum.rec.anlog 27 unit SQ DAILY 05/24/13 10/08/17 [Lantus] Lorazepam [Ativan] 1 mg PO QPM PRN 08/29/13 10/08/17 Insulin Glargine,Hum.rec.anlog 32 units SUBQ QPM 09/05/13 10/08/17 [Lantus Solostar] Amitriptyline [Elavil] 75 mg PO QPM 07/03/14 10/08/17 Pantoprazole [Protonix] 40 mg PO QDAC 01/17/15 10/08/17 Venlafaxine ER [Effexor ER] 150 mg PO DAILY 08/27/15 10/08/17 Cyclobenzaprine [Flexeril] 10 mg PO TID PRN #15 tablet 12/01/15 10/08/17 Lisinopril 10 mg PO DAILY 10/02/16 10/08/17 Spironolactone 25 mg PO DAILY 04/11/17 10/08/17 Aspirin [Aspirin EC] 81 mg PO DAILY 10/08/17 10/08/17 Atorvastatin Calcium 80 mg PO QPM 10/08/17 10/08/17 Furosemide 80 mg PO DAILY 10/08/17 10/08/17 Insulin Aspart [Novolog Flexpen] 0 - 15 units SUBQ TIDWM 10/08/17 10/08/17 Levothyroxine Sodium 250 mcg PO QDAC 10/08/17 10/08/17 Metoprolol Succinate 25 mg PO DAILY 10/08/17 10/08/17 - Allergies Allergies/Adverse Reactions: Allergies Allergy/AdvReac Type Severity Reaction Status Date / Time sulfamethoxazole Allergy Intermediate rash/ Verified 10/08/17 12:11 [From Bactrim] adhesive Allergy Rash Verified 10/08/17 12:11 amoxicillin [Amoxicillin] Allergy unknown Verified 10/08/17 12:11 oxycodone [Oxycodone] AdvReac Intermediate hallucinate, Verified 10/08/17 12:11 vomit promethazine HCl * AdvReac Mild Nausea Verified 10/08/17 12:11 [From Phenergan] - Social History Does the pt smoke?: No Smoking Status: Never smoker Does the pt drink ETOH?: No Does the pt have substance abuse?: No - Immunizations Immunizations are current?: Yes - POLST Patient has POLST: No POLST Status: Full Code PD ED PE NORMAL - Vitals Vital signs reviewed: Yes - General General: Alert and oriented X 3, No acute distress - HEENT HEENT: PERRL - Neck Neck: Supple, no meningeal sign, No bony TTP - Cardiac Cardiac: Other (tachycardic, no mmr) - Respiratory Respiratory: No respiratory distress, Clear bilaterally - Abdomen Abdomen: Normal bowel sounds, Soft, Non tender - Back Back: No CVA TTP, No spinal TTP - Derm Derm: Normal color, Warm and dry - Extremities Extremities: No deformity, No tenderness to palpate, No calf tenderness / cord - Neuro Neuro: Alert and oriented X 3, No motor deficit, No sensory deficit - Psych Psych: Normal mood, Normal affect Results - Vitals Vitals: Vital Signs - 24 hr 10/08/17 10/08/17 12:07 14:09 Temperature 36.7 C 37.4 C Heart Rate 126 H 126 H Respiratory 18 12 Rate Blood Pressure 145/86 H 150/83 H O2 Saturation 100 99 Oxygen O2 Source Room air - Labs Labs: Laboratory Tests 10/08/17 10/08/17 10/08/17 13:54 13:54 13:54 WBC 15.3 H RBC 4.40 Hgb 14.1 Hct 41.0 MCV 93.2 MCH 32.0 H MCHC 34.3 RDW 12.6 Plt Count 309 MPV 7.5 L Neut # 13.9 H Lymph # 0.9 L [place] # 0.4 Eos # 0.0 Baso # 0.1 Absolute Nucleated RBC 0.00 Nucleated RBC % 0.0 VBG pH 7.381 VBG pCO2 30.6 L VBG pO2 88.8 H VBG HCO3 17.7 L VBG Total CO2 18.7 L VBG O2 Saturation 97.0 H VBG Base Excess -6.0 L Sodium 126 L Potassium 4.4 Chloride 89 L Carbon Dioxide 17 L Anion Gap 20.0 H BUN 15 Creatinine 0.9 Estimated GFR (MDRD) 70 L Glucose 489 H Glycated Hemoglobin Estim Average Glucose Calcium 9.1 Magnesium 1.8 Total Bilirubin 1.3 H AST 20 ALT 18 Alkaline Phosphatase 156 H Total Protein 7.8 Albumin 3.4 Globulin 4.4 H Albumin/Globulin Ratio 0.8 L Lipase 13 L TSH Urine Color Urine Clarity Urine pH Ur Specific [place] Urine Protein Urine Glucose (UA) Urine Ketones Urine Occult Blood Urine Nitrite Urine Bilirubin Urine Urobilinogen Ur Leukocyte Esterase Urine RBC Urine WBC Ur Squamous Epith Cells Urine Bacteria Ur Microscopic Review Urine Culture Comments Urine HCG, Qual Serum Ketones MODERATE H Influenza A (Rapid) Influenza B (Rapid) Influenza Types A,B Ag 10/08/17 10/08/17 10/08/17 13:54 13:54 14:47 WBC RBC Hgb Hct MCV MCH MCHC RDW Plt Count MPV Neut # Lymph # [place] # Eos # Baso # Absolute Nucleated RBC Nucleated RBC % VBG pH VBG pCO2 VBG pO2 VBG HCO3 VBG Total CO2 VBG O2 Saturation VBG Base Excess Sodium Potassium Chloride Carbon Dioxide Anion Gap BUN Creatinine Estimated GFR (MDRD) Glucose Glycated Hemoglobin 12.3 H Estim Average Glucose 306 H Calcium Magnesium Total Bilirubin AST ALT Alkaline Phosphatase Total Protein Albumin Globulin Albumin/Globulin Ratio Lipase TSH 5.19 Urine Color YELLOW Urine Clarity CLEAR Urine pH 5.5 Ur Specific [place] 1.020 Urine Protein TRACE Urine Glucose (UA) 500 H Urine Ketones >=80 H Urine Occult Blood MODERATE H Urine Nitrite NEGATIVE Urine Bilirubin NEGATIVE Urine Urobilinogen 0.2 (NORMAL) Ur Leukocyte Esterase NEGATIVE Urine RBC 0-5 Urine WBC 0-3 Ur Squamous Epith Cells RARE Squamous Urine Bacteria Rare Ur Microscopic Review INDICATED Urine Culture Comments NOT INDICATED Urine HCG, Qual NEGATIVE Serum Ketones Influenza A (Rapid) Influenza B (Rapid) Influenza Types A,B Ag 10/08/17 15:50 WBC RBC Hgb Hct MCV MCH MCHC RDW Plt Count MPV Neut # Lymph # [place] # Eos # Baso # Absolute Nucleated RBC Nucleated RBC % VBG pH VBG pCO2 VBG pO2 VBG HCO3 VBG Total CO2 VBG O2 Saturation VBG Base Excess Sodium Potassium Chloride Carbon Dioxide Anion Gap BUN Creatinine Estimated GFR (MDRD) Glucose Glycated Hemoglobin Estim Average Glucose Calcium Magnesium Total Bilirubin AST ALT Alkaline Phosphatase Total Protein Albumin Globulin Albumin/Globulin Ratio Lipase TSH Urine Color Urine Clarity Urine pH Ur Specific [place] Urine Protein Urine Glucose (UA) Urine Ketones Urine Occult Blood Urine Nitrite Urine Bilirubin Urine Urobilinogen Ur Leukocyte Esterase Urine RBC Urine WBC Ur Squamous Epith Cells Urine Bacteria Ur Microscopic Review Urine Culture Comments Urine HCG, Qual Serum Ketones Influenza A (Rapid) Negative Influenza B (Rapid) Negative Influenza Types A,B Ag - - Rads (name of study) CT A/P and 2v chest Radiology: EMP read contemporaneously (NAD x constipation) Procedures - General procedure General procedure: She is very difficult for IV access, the nurse tried and failed. I tried multiple times, twice in the external jugulars and a couple times and finally got a deep 20-gauge IV in the left antecubital fossa using real-time ultrasound guidance and blood was drawn. This IV promptly infiltrated and I replaced it with a 20-gauge IV in the right deep brachial vein also using real-time ultrasound guidance. - Central Line Central Line Preparation: Consent Obtained, Time out completed, Ultrasound used Central line location: Right IJ Central line type: Triple lumen Central line aftercare: Chlorhexidine disc placed, Secured, Placement confirmed , No pneumothorax, No complications, Bundle checklist complete, Pt tolerated well PD MEDICAL DECISION MAKING - ED course ED course: 37-year-old woman with diabetes and recurrent DKA presents with respiratory illness, right lower quadrant pain which she feels is reminiscent of prior renal abscess, and symptoms Concerning for recurrent DKA with a bicarb of 17 and ketonemia. IV access was a real problem, the IVs I placed both infiltrated in the nurse was unable to place an IV. This eventually necessitated a central line. Spoke with Dr. Espinal for admission at 4:50 PM. Departure - Departure Disposition: 66 [facility] DC/Xfer Clinical Impression: Abdominal pain DKA (diabetic ketoacidoses) Qualifiers: Diabetes mellitus type: due to underlying condition Diabetes mellitus complication detail: without coma Qualified Code(s): E08.10 - Diabetes mellitus due to underlying condition with ketoacidosis without coma Condition: Stable Discharge Date/Time: 10/08/17 18:18
[2017-10-08] MEDS ORDERED: ONDANSETRON 4 MG/2 ML VIAL IVP STA (13:57)
[2017-10-08] MEDS ORDERED: HYDROmorphone 1 MG/ML SYRINGE IVP STA ×2 (13:57→17:20)
[2017-10-08] MEDS ORDERED: INSULIN REGULAR HUMAN 100 UNIT/1 ML 10 ML MDV IVP STA (13:59)
[2017-10-08 14:01] LABS: VBG PCO2 30.6 mmHg (41-51); VBG PH 7.381 (7.31-7.41); VBG PO2 88.8 mmHg (25-47); VBG TOTAL CO2 18.7 mmol/L (24-29)
[2017-10-08 14:04] LABS: BASOPHILS # (AUTO) 0.1 10^3/uL (0.0-0.1); BASOPHILS % (AUTO) 0.4 %; EOSINOPHILS % (AUTO) 0.1 %; HGB - HEMOGLOBIN 14.1 g/dL (12.0-16.0); LYMPHOCYTES # (AUTO) 0.9 10^3/uL (1.5-3.5); LYMPHOCYTES % (AUTO) 6.2 %; MEAN CORPUSCULAR HGB CONC 34.3 g/dL (32.0-36.0); MEAN CORPUSCULAR VOLUME 93.2 fL (81.0-99.0); MEAN PLATELET VOLUME 7.5 fL (7.9-10.8); MONOCYTES # (AUTO) 0.4 10^3/uL (0.0-1.0); MONOCYTES % (AUTO) 2.7 %; NEUTROPHILS # (AUTO) 13.9 10^3/uL (1.5-6.6); NEUTROPHILS % (AUTO) 90.6 %; PLT - PLATELET COUNT 309 10^3/uL (130-450); RED CELL DISTRIBUTION WIDTH 12.6 % (12.0-15.0); WHITE BLOOD COUNT 15.3 x10^3/uL (4.8-10.8)
[2017-10-08 14:08] LABS: KETONES, SERUM (ACETEST) MODERATE (NEGATIVE)
[2017-10-08 14:13] LABS: ALBUMIN 3.4 g/dL (3.2-5.5); ALBUMIN/GLOBULIN RATIO 0.8 (1.0-2.2); ALKALINE PHOSPHATASE 156 IU/L (42-121); ALT ALANINE AMINOTRANSFERASE 18 IU/L (10-60); AST ASPARTATE AMINOTRANSFERASE 20 IU/L (10-42); BILIRUBIN,TOTAL 1.3 mg/dL (0.2-1.0); BUN - BLOOD UREA NITROGEN 15 mg/dL (6-20); CALCIUM 9.1 mg/dL (8.5-10.3); CARBON DIOXIDE - CO2 17 mmol/L (21-32); CHLORIDE 89 mmol/L (101-111); CREATININE 0.9 mg/dL (0.4-1.0); GFR - MDRD 70 (>89); GLUCOSE 489 mg/dL (70-100); LIPASE 13 U/L (22-51); MAGNESIUM 1.8 mg/dL (1.7-2.8); SODIUM 126 mmol/L (135-145); TOTAL PROTEIN 7.8 g/dL (6.7-8.2)
[2017-10-08] MEDS ORDERED: IOPAMIDOL-300 100 ML VIAL ONE (14:38)
[2017-10-08 14:50] LABS: GLUCOSE, URINE (UA) 500 mg/dL (NEGATIVE); KETONES,URINE (UA) >=80 mg/dL (NEGATIVE); LEUKOCYTE ESTERASE, URINE NEGATIVE (NEGATIVE); NITRITE,URINE NEGATIVE (NEGATIVE); OCCULT BLOOD,URINE MODERATE (NEGATIVE); PH,URINE 5.5 PH (5.0-7.5); PROTEIN,URINE TRACE mg/dL (NEGATIVE); UROBILINOGEN,URINE 0.2 (NORMAL) E.U./dL (NORMAL)
[2017-10-08 14:52] LABS: CLARITY,URINE CLEAR (CLEAR)
[2017-10-08 14:55] LABS: BILIRUBIN,URINE NEGATIVE (NEGATIVE); HCG UR QUAL NEGATIVE; ICTOTEST,URINE NEGATIVE
[2017-10-08 14:59] LABS: BACTERIA,URINE Rare /HPF (None Seen); RBC,URINE 0-5 /HPF (0-5); SQUAMOUS EPITHELIAL CELL,UR RARE Squamous (<= Few)
[2017-10-08] MEDS ORDERED: IOPAMIDOL-300 100 ML VIAL IVP ONE (15:52)
--- NOTE | 2017-10-08 16:23 | CT Preliminary Report ---
Exam: CT ABDOMEN/PELVIS W/ IMPRESSION: 1. No evidence of acute appendicitis. 2. Mild increased colonic stool volume. 3. No other localizing inflammatory process or CT finding to explain symptoms. [facility] SITE ID: [id number]
--- NOTE | 2017-10-08 16:23 | CT Report ---
EXAM: CT ABDOMEN AND PELVIS EXAM DATE: 10/08/2017 03:52 PM. CLINICAL HISTORY: IV only, RLQ pain. COMPARISONS: 07/27/2017. TECHNIQUE: Routine helical CT imaging was performed through the abdomen and pelvis. IV contrast: 80 M L ISOVUE 300. Enteric contrast: No. Reconstructions: Coronal and sagittal. In accordance with CT protocol optimization, one or more of the following dose reduction techniques w ere utilized for this exam: automated exposure control, adjustment of mA and/or KV based on patient s ize, or use of iterative reconstructive technique. FINDINGS: Lung Bases: Unremarkable. Liver: There is a hypodensity arising from or adjacent to the posterior inferior right lobe of the li morena measuring 1.4 cm in diameter and appears unchanged. Gallbladder/Bile Ducts: The gallbladder is surgically absent. Spleen: Normal. Pancreas: Normal. Adrenal Glands: Normal. Kidneys: Normal. No masses or hydronephrosis. Peritoneal Cavity/Bowel: The small bowel is normal in caliber. The cecum appears in normal position. There is no evidence of acute appendicitis. There is increased stool in the left colon. Pelvic Organs: The uterus has a somewhat lobulated shape raising possibility of fibroid disease. Vasculature: No aneurysms or other significant abnormality. Bones: No significant abnormality. Other: None. IMPRESSION: 1. No evidence of acute appendicitis. 2. Mild increased colonic stool volume. 3. No other localizing inflammatory process or CT finding to explain symptoms. [facility] Referring Provider Line: [phone] SITE ID: [id number]
--- NOTE | 2017-10-08 16:25 | XRAY Report ---
EXAM: CHEST RADIOGRAPHY EXAM DATE: 10/08/2017 04:02 PM. CLINICAL HISTORY: Cough. COMPARISON: 07/27/2017. TECHNIQUE: 2 views. FINDINGS: Lungs/Pleura: No focal opacities evident. No pleural effusion. No pneumothorax. Normal volumes. Mediastinum: Pacemaker device overlies the chest. There are cardiac leads which appear unchanged in l ocation. The heart is normal in size. The trachea is midline. Other: None. IMPRESSION: No acute cardiopulmonary abnormality. [facility] Referring Provider Line: [phone] SITE ID: [id number]
--- NOTE | 2017-10-08 16:25 | XRAY Preliminary Report ---
Exam: XR CHEST 2 VIEW X-RAY IMPRESSION: No acute cardiopulmonary abnormality. [facility] SITE ID: [id number]
[2017-10-08] MEDS ORDERED: TEMAZEPAM 15 MG CAPSULE PO PRN (17:11)
[2017-10-08] MEDS ORDERED: PROCHLORPERAZINE 10 MG/2 ML VIAL IVP PRN (17:11)
[2017-10-08] MEDS ORDERED: oxyCODONE 5 MG TABLET PO PRN (17:11)
[2017-10-08] MEDS ORDERED: CYCLOBENZAPRINE 10 MG TABLET PO PRN (17:19)
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
[2017-10-08 17:43] LABS: HB2 TOTAL 15.3 g/dL; HEMOGLOBIN A1C 1.7 g/dL; HEMOGLOBIN A1C % 12.3 % (4.6-6.2)
--- NOTE | 2017-10-08 17:54 | XRAY Report ---
EXAM: CHEST RADIOGRAPHY EXAM DATE: 10/08/2017 05:36 PM. CLINICAL HISTORY: RIJ Central line. COMPARISON: 10/08/2017. TECHNIQUE: 1 view. FINDINGS: Lungs/Pleura: No focal opacities evident. No pleural effusion. No pneumothorax. Mediastinum: Within exam limitations, the cardiomediastinal contour is normal. Other: Interval placement of a right IJ central line placed to the mid to lower SVC noted in the tip of the catheter is obscured by pacemaker leads. IMPRESSION: Stable chest post central line placement. [facility] Referring Provider Line: [phone] SITE ID: [id number]
[2017-10-08 17:58] LABS: VBG PCO2 42.2 mmHg (41-51); VBG PH 7.384 (7.31-7.41)
[2017-10-08 17:59] LABS: VBG BASE EXCESS -0.5 mmol/L (-2 - +2); VBG PO2 49.3 mmHg (25-47); VBG TOTAL CO2 25.9 mmol/L (24-29)
[2017-10-08 18:07] LABS: CREATININE 0.8 mg/dL (0.4-1.0); MAGNESIUM 1.9 mg/dL (1.7-2.8)
[2017-10-08] MEDS ORDERED: INSULIN REGULAR HUMAN 100 UNIT in SODIUM CHLORIDE 0.9% 100ML 99 ML IV SCH ×2 (19:45→20:02)
[2017-10-08] MEDS ORDERED: SODIUM CHLORIDE 0.9% 1,000 ML IV SCH (20:00)
[2017-10-08] MEDS: SODIUM CHLORIDE FLUSH 0.9% 10 ML SYRINGE IVP PRN ×3 (20:15→23:04)
[2017-10-08] MEDS: HYDROmorphone 1 MG/ML SYRINGE IVP PRN (20:15)
[2017-10-08 20:29] LABS: BUN - BLOOD UREA NITROGEN 17 mg/dL (6-20); CALCIUM 8.6 mg/dL (8.5-10.3); CARBON DIOXIDE - CO2 23 mmol/L (21-32); CHLORIDE 97 mmol/L (101-111); CREATININE 0.7 mg/dL (0.4-1.0); GFR - MDRD 93 (>89); GLUCOSE 218 mg/dL (70-100); MAGNESIUM 1.9 mg/dL (1.7-2.8); SODIUM 132 mmol/L (135-145)
[2017-10-08 20:40] LABS: KETONES, SERUM (ACETEST) MODERATE (NEGATIVE)
[2017-10-08] MEDS: D5NS W/20 MEQ KCL 1,000 ML IV SCH (20:49)
[2017-10-08] MEDS: ATORVASTATIN 40 MG TABLET PO SCH (20:50)
[2017-10-08] MEDS: FAMOTIDINE 20 MG TABLET PO SCH (20:51)
[2017-10-08] MEDS: AMITRIPTYLINE 25 MG TABLET PO SCH (20:51)
[2017-10-08 22:39] LABS: BUN - BLOOD UREA NITROGEN 17 mg/dL (6-20); CALCIUM 8.5 mg/dL (8.5-10.3); CARBON DIOXIDE - CO2 25 mmol/L (21-32); CHLORIDE 98 mmol/L (101-111); CREATININE 0.8 mg/dL (0.4-1.0); GFR - MDRD 80 (>89); GLUCOSE 149 mg/dL (70-100); MAGNESIUM 1.9 mg/dL (1.7-2.8); SODIUM 133 mmol/L (135-145)
[2017-10-08 22:45] LABS: KETONES, SERUM (ACETEST) SMALL (NEGATIVE)
[2017-10-09] MEDS: SODIUM CHLORIDE FLUSH 0.9% 10 ML SYRINGE IVP PRN ×5 (00:11→23:54)
[2017-10-09] MEDS: SODIUM CHLORIDE FLUSH 0.9% 10 ML SYRINGE IVP SCH ×4 (00:11→21:02)
[2017-10-09] MEDS: HYDROmorphone 1 MG/ML SYRINGE IVP PRN ×8 (00:11→23:54)
[2017-10-09 01:43] LABS: CALCIUM 8.6 mg/dL (8.5-10.3); CREATININE 0.6 mg/dL (0.4-1.0)
[2017-10-09] MEDS ORDERED: POTASSIUM CHLORIDE 20 MEQ TABLET PO ONE (01:45)
[2017-10-09 03:21] LABS: BUN - BLOOD UREA NITROGEN 16 mg/dL (6-20); CALCIUM 8.5 mg/dL (8.5-10.3); CARBON DIOXIDE - CO2 25 mmol/L (21-32); CHLORIDE 100 mmol/L (101-111); CREATININE 0.7 mg/dL (0.4-1.0); GFR - MDRD 93 (>89); GLUCOSE 152 mg/dL (70-100); PHOSPHORUS 4.1 mg/dL (2.5-4.6); SODIUM 136 mmol/L (135-145)
[2017-10-09 03:33] LABS: KETONES, SERUM (ACETEST) SMALL (NEGATIVE)
[2017-10-09 05:39] LABS: HGB - HEMOGLOBIN 11.7 g/dL (12.0-16.0); MEAN CORPUSCULAR HEMOGLOBIN 31.6 pg (27.0-31.0); MEAN CORPUSCULAR HGB CONC 33.9 g/dL (32.0-36.0); MEAN CORPUSCULAR VOLUME 93.4 fL (81.0-99.0); MEAN PLATELET VOLUME 7.1 fL (7.9-10.8); RED BLOOD COUNT 3.69 10^6/uL (4.20-5.40); RED CELL DISTRIBUTION WIDTH 12.6 % (12.0-15.0); WHITE BLOOD COUNT 6.7 x10^3/uL (4.8-10.8)
[2017-10-09 05:59] LABS: HB2 TOTAL 12.2 g/dL; HEMOGLOBIN A1C 1.4 g/dL; HEMOGLOBIN A1C % 12.6 % (4.6-6.2)
[2017-10-09] MEDS: D5NS W/20 MEQ KCL 1,000 ML IV SCH ×2 (06:35→16:57)
[2017-10-09] MEDS: LEVOTHYROXINE 125 MCG TABLET PO SCH (06:37)
[2017-10-09] MEDS: ASPIRIN EC 81 MG TABLET PO SCH (10:08)
[2017-10-09] MEDS: METOPROLOL SUCCINATE 25 MG TABLET PO SCH (10:08)
[2017-10-09] MEDS: FAMOTIDINE 20 MG TABLET PO SCH ×2 (10:08→21:06)
[2017-10-09] MEDS: LISINOPRIL 20 MG TABLET PO SCH (10:08)
[2017-10-09] MEDS: VENLAFAXINE ER 75 MG CAPSULE PO SCH (10:09)
[2017-10-09] MEDS: INSULIN ASPART 300 UNIT/3 ML PEN SUBQ SCH ×3 (12:38→21:05)
--- NOTE | 2017-10-09 15:43 | PROVIDER PROGRESS NOTE ---
Subjective - Prog Note Date Prog Note Date: 10/09/17 Prog Note Time: 13:50 - Subjective Pt reports feeling: Improved, No change (Patient says she still does not feel well. She says she feels weak and "just not myself".) Current Medications - Current Medications Current Medications: Amitriptyline, aspirin, atorvastatin, cyclobenzaprine, D5W, famotidine, hydromorphone, insulin, levothyroxine,Lisinopril, metoprolol, Compazine, sodium chloride, temazepam, Effexor Objective - Vital Signs/Intake & Output Reviewed Vital Signs: Yes Intake & Output: Intake & Output 10/06/17 10/07/17 10/08/17 10/09/17 23:59 23:59 23:59 23:59 Intake Total 1360 1355.310 Output Total 0 0 Balance 1360 1355.310 - Objective General Appearance: positive: Alert, Mild distress Eyes Bilateral: positive: Normal inspection, PERRL, EOMI, No lid inflammation, Conjunctivae nml, No scleral icterus ENT: positive: ENT inspection nml, Pharynx nml, No signs of dehydration Neck: positive: Nml inspection, Thyroid nml, No JVD, Trachea midline. negative : Thyromegaly Respiratory: positive: Chest non-tender, No respiratory distress, Breath sounds nml. negative: Wheezes, Rales, Rhonchi Cardiovascular: positive: Regular rate & rhythm, No murmur, No gallop Abdomen: positive: Non-tender, No organomegaly, Nml bowel sounds, No distention. negative: Guarding, Rebound Back: positive: Nml inspection. negative: CVA tenderness (R), CVA tenderness (L ) Skin: positive: Color nml, No rash, Warm, Dry. negative: Cyanosis Extremities: positive: Non-tender, Full ROM, Nml appearance, No pedal edema Neurologic/Psychiatric: positive: Oriented x3, CN's nml (2-12), Motor nml, Sensation nml, Mood/affect nml - Lab Results Fish Bones: 10/09/17 05:15 10/09/17 03:00 Other Labs: Lab Results x24hrs 10/09/17 10/09/17 10/09/17 Range/Units 15:10 13:20 12:29 WBC (4.8-10.8) x10^3/uL RBC (4.20-5.40) 10^6/uL Hgb (12.0-16.0) g/dL Hct (37.0-47.0) % MCV (81.0-99.0) fL MCH (27.0-31.0) pg MCHC (32.0-36.0) g/dL RDW (12.0-15.0) % Plt Count (130-450) 10^3/uL MPV (7.9-10.8) fL VBG pH (7.31-7.41) VBG pCO2 (41-51) mmHg VBG pO2 (25-47) mmHg VBG HCO3 (23-28) mmol/L VBG Total CO2 (24-29) mmol/L VBG O2 Saturation (60-80) % VBG Base Excess (-2 - +2) mmol/L Sodium (135-145) mmol/L Potassium (3.5-5.0) mmol/L Chloride (101-111) mmol/L Carbon Dioxide (21-32) mmol/L Anion Gap (6-13) BUN (6-20) mg/dL Creatinine (0.4-1.0) mg/dL Estimated GFR (MDRD) (>89) Glucose (70-100) mg/dL POC Whole Bld Glucose 367 H (70 - 100) mg/dL Glycated Hemoglobin (4.6-6.2) % Estim Average Glucose (70-100) Calcium (8.5-10.3) mg/dL Phosphorus (2.5-4.6) mg/dL Magnesium (1.7-2.8) mg/dL Troponin I (<0.49) ng/mL Triglycerides ( - 149) mg/dL Serum Ketones SMALL H SMALL H (NEGATIVE) 18 10/09/17 10/09/17 Range/Units 11:22 10:00 10:00 WBC (4.8-10.8) x10^3/uL RBC (4.20-5.40) 10^6/uL Hgb (12.0-16.0) g/dL Hct (37.0-47.0) % MCV (81.0-99.0) fL MCH (27.0-31.0) pg MCHC (32.0-36.0) g/dL RDW (12.0-15.0) % Plt Count (130-450) 10^3/uL MPV (7.9-10.8) fL VBG pH (7.31-7.41) VBG pCO2 (41-51) mmHg VBG pO2 (25-47) mmHg VBG HCO3 (23-28) mmol/L VBG Total CO2 (24-29) mmol/L VBG O2 Saturation (60-80) % VBG Base Excess (-2 - +2) mmol/L Sodium (135-145) mmol/L Potassium (3.5-5.0) mmol/L Chloride (101-111) mmol/L Carbon Dioxide (21-32) mmol/L Anion Gap (6-13) BUN (6-20) mg/dL Creatinine (0.4-1.0) mg/dL Estimated GFR (MDRD) (>89) Glucose (70-100) mg/dL POC Whole Bld Glucose (70 - 100) mg/dL Glycated Hemoglobin (4.6-6.2) % Estim Average Glucose (70-100) Calcium (8.5-10.3) mg/dL Phosphorus (2.5-4.6) mg/dL Magnesium (1.7-2.8) mg/dL Troponin I < 0.04 (<0.49) ng/mL Triglycerides ( - 149) mg/dL Serum Ketones SMALL H SMALL H (NEGATIVE) 10/09/17 10/09/17 10/09/17 Range/Units 07:59 06:55 05:15 WBC (4.8-10.8) x10^3/uL RBC (4.20-5.40) 10^6/uL Hgb (12.0-16.0) g/dL Hct (37.0-47.0) % MCV (81.0-99.0) fL MCH (27.0-31.0) pg MCHC (32.0-36.0) g/dL RDW (12.0-15.0) % Plt Count (130-450) 10^3/uL MPV (7.9-10.8) fL VBG pH (7.31-7.41) VBG pCO2 (41-51) mmHg VBG pO2 (25-47) mmHg VBG HCO3 (23-28) mmol/L VBG Total CO2 (24-29) mmol/L VBG O2 Saturation (60-80) % VBG Base Excess (-2 - +2) mmol/L Sodium (135-145) mmol/L Potassium (3.5-5.0) mmol/L Chloride (101-111) mmol/L Carbon Dioxide (21-32) mmol/L Anion Gap (6-13) BUN (6-20) mg/dL Creatinine (0.4-1.0) mg/dL Estimated GFR (MDRD) (>89) Glucose (70-100) mg/dL POC Whole Bld Glucose 322 H (70 - 100) mg/dL Glycated Hemoglobin 12.6 H (4.6-6.2) % Estim Average Glucose 315 H (70-100) Calcium (8.5-10.3) mg/dL Phosphorus (2.5-4.6) mg/dL Magnesium (1.7-2.8) mg/dL Troponin I (<0.49) ng/mL Triglycerides ( - 149) mg/dL Serum Ketones SMALL H (NEGATIVE) 10/09/1718 10/09/17 Range/Units 05:15 05:15 05:15 WBC 6.7 (4.8-10.8) x10^3/uL RBC 3.69 L (4.20-5.40) 10^6/uL Hgb 11.7 L (12.0-16.0) g/dL Hct 34.5 L (37.0-47.0) % MCV 93.4 (81.0-99.0) fL MCH 31.6 H (27.0-31.0) pg MCHC 33.9 (32.0-36.0) g/dL RDW 12.6 (12.0-15.0) % Plt Count 265 (130-450) 10^3/uL MPV 7.1 L (7.9-10.8) fL VBG pH (7.31-7.41) VBG pCO2 (41-51) mmHg VBG pO2 (25-47) mmHg VBG HCO3 (23-28) mmol/L VBG Total CO2 (24-29) mmol/L VBG O2 Saturation (60-80) % VBG Base Excess (-2 - +2) mmol/L Sodium (135-145) mmol/L Potassium (3.5-5.0) mmol/L Chloride (101-111) mmol/L Carbon Dioxide (21-32) mmol/L Anion Gap (6-13) BUN (6-20) mg/dL Creatinine (0.4-1.0) mg/dL Estimated GFR (MDRD) (>89) Glucose (70-100) mg/dL POC Whole Bld Glucose (70 - 100) mg/dL Glycated Hemoglobin (4.6-6.2) % Estim Average Glucose (70-100) Calcium (8.5-10.3) mg/dL Phosphorus (2.5-4.6) mg/dL Magnesium (1.7-2.8) mg/dL Troponin I < 0.04 (<0.49) ng/mL Triglycerides ( - 149) mg/dL Serum Ketones SMALL H (NEGATIVE) 10/09/17 10/09/17 10/09/17 Range/Units 05:13 03:00 02:06 WBC (4.8-10.8) x10^3/uL RBC (4.20-5.40) 10^6/uL Hgb (12.0-16.0) g/dL Hct (37.0-47.0) % MCV (81.0-99.0) fL MCH (27.0-31.0) pg MCHC (32.0-36.0) g/dL RDW (12.0-15.0) % Plt Count (130-450) 10^3/uL MPV (7.9-10.8) fL VBG pH (7.31-7.41) VBG pCO2 (41-51) mmHg VBG pO2 (25-47) mmHg VBG HCO3 (23-28) mmol/L VBG Total CO2 (24-29) mmol/L VBG O2 Saturation (60-80) % VBG Base Excess (-2 - +2) mmol/L Sodium 136 (135-145) mmol/L Potassium 3.9 (3.5-5.0) mmol/L Chloride 100 L (101-111) mmol/L Carbon Dioxide 25 (21-32) mmol/L Anion Gap 11.0 (6-13) BUN 16 (6-20) mg/dL Creatinine 0.7 (0.4-1.0) mg/dL Estimated GFR (MDRD) 93 (>89) Glucose 152 H (70-100) mg/dL POC Whole Bld Glucose 226 H 107 H (70 - 100) mg/dL Glycated Hemoglobin (4.6-6.2) % Estim Average Glucose (70-100) Calcium 8.5 (8.5-10.3) mg/dL Phosphorus 4.1 (2.5-4.6) mg/dL Magnesium (1.7-2.8) mg/dL Troponin I (<0.49) ng/mL Triglycerides 387 H ( - 149) mg/dL Serum Ketones SMALL H (NEGATIVE) 10/09/1718 10/09/17 Range/Units 01:05 01:05 01:05 WBC (4.8-10.8) x10^3/uL RBC (4.20-5.40) 10^6/uL Hgb (12.0-16.0) g/dL Hct (37.0-47.0) % MCV (81.0-99.0) fL MCH (27.0-31.0) pg MCHC (32.0-36.0) g/dL RDW (12.0-15.0) % Plt Count (130-450) 10^3/uL MPV (7.9-10.8) fL VBG pH (7.31-7.41) VBG pCO2 (41-51) mmHg VBG pO2 (25-47) mmHg VBG HCO3 (23-28) mmol/L VBG Total CO2 (24-29) mmol/L VBG O2 Saturation (60-80) % VBG Base Excess (-2 - +2) mmol/L Sodium 137 (135-145) mmol/L Potassium 3.5 (3.5-5.0) mmol/L Chloride 101 (101-111) mmol/L Carbon Dioxide 26 (21-32) mmol/L Anion Gap 10.0 (6-13) BUN 16 (6-20) mg/dL Creatinine 0.6 (0.4-1.0) mg/dL Estimated GFR (MDRD) 111 (>89) Glucose 100 (70-100) mg/dL POC Whole Bld Glucose 96 (70 - 100) mg/dL Glycated Hemoglobin (4.6-6.2) % Estim Average Glucose (70-100) Calcium 8.6 (8.5-10.3) mg/dL Phosphorus (2.5-4.6) mg/dL Magnesium (1.7-2.8) mg/dL Troponin I (<0.49) ng/mL Triglycerides ( - 149) mg/dL Serum Ketones SMALL H (NEGATIVE) 10/09/17 10/08/17 10/08/17 Range/Units 00:02 23:07 23:07 WBC (4.8-10.8) x10^3/uL RBC (4.20-5.40) 10^6/uL Hgb (12.0-16.0) g/dL Hct (37.0-47.0) % MCV (81.0-99.0) fL MCH (27.0-31.0) pg MCHC (32.0-36.0) g/dL RDW (12.0-15.0) % Plt Count (130-450) 10^3/uL MPV (7.9-10.8) fL VBG pH (7.31-7.41) VBG pCO2 (41-51) mmHg VBG pO2 (25-47) mmHg VBG HCO3 (23-28) mmol/L VBG Total CO2 (24-29) mmol/L VBG O2 Saturation (60-80) % VBG Base Excess (-2 - +2) mmol/L Sodium (135-145) mmol/L Potassium (3.5-5.0) mmol/L Chloride (101-111) mmol/L Carbon Dioxide (21-32) mmol/L Anion Gap (6-13) BUN (6-20) mg/dL Creatinine (0.4-1.0) mg/dL Estimated GFR (MDRD) (>89) Glucose (70-100) mg/dL POC Whole Bld Glucose 103 H (70 - 100) mg/dL Glycated Hemoglobin (4.6-6.2) % Estim Average Glucose (70-100) Calcium (8.5-10.3) mg/dL Phosphorus (2.5-4.6) mg/dL Magnesium (1.7-2.8) mg/dL Troponin I < 0.04 (<0.49) ng/mL Triglycerides ( - 149) mg/dL Serum Ketones SMALL H (NEGATIVE) 10/08/17 10/08/17 10/08/17 Range/Units 23:02 22:05 22:03 WBC (4.8-10.8) x10^3/uL RBC (4.20-5.40) 10^6/uL Hgb (12.0-16.0) g/dL Hct (37.0-47.0) % MCV (81.0-99.0) fL MCH (27.0-31.0) pg MCHC (32.0-36.0) g/dL RDW (12.0-15.0) % Plt Count (130-450) 10^3/uL MPV (7.9-10.8) fL VBG pH (7.31-7.41) VBG pCO2 (41-51) mmHg VBG pO2 (25-47) mmHg VBG HCO3 (23-28) mmol/L VBG Total CO2 (24-29) mmol/L VBG O2 Saturation (60-80) % VBG Base Excess (-2 - +2) mmol/L Sodium 133 L (135-145) mmol/L Potassium 3.6 (3.5-5.0) mmol/L Chloride 98 L (101-111) mmol/L Carbon Dioxide 25 (21-32) mmol/L Anion Gap 10.0 (6-13) BUN 17 (6-20) mg/dL Creatinine 0.8 (0.4-1.0) mg/dL Estimated GFR (MDRD) 80 L (>89) Glucose 149 H (70-100) mg/dL POC Whole Bld Glucose 114 H 147 H (70 - 100) mg/dL Glycated Hemoglobin (4.6-6.2) % Estim Average Glucose (70-100) Calcium 8.5 (8.5-10.3) mg/dL Phosphorus (2.5-4.6) mg/dL Magnesium 1.9 (1.7-2.8) mg/dL Troponin I (<0.49) ng/mL Triglycerides ( - 149) mg/dL Serum Ketones SMALL H (NEGATIVE) 10/08/17 10/08/17 10/08/17 Range/Units 21:01 20:10 20:03 WBC (4.8-10.8) x10^3/uL RBC (4.20-5.40) 10^6/uL Hgb (12.0-16.0) g/dL Hct (37.0-47.0) % MCV (81.0-99.0) fL MCH (27.0-31.0) pg MCHC (32.0-36.0) g/dL RDW (12.0-15.0) % Plt Count (130-450) 10^3/uL MPV (7.9-10.8) fL VBG pH (7.31-7.41) VBG pCO2 (41-51) mmHg VBG pO2 (25-47) mmHg VBG HCO3 (23-28) mmol/L VBG Total CO2 (24-29) mmol/L VBG O2 Saturation (60-80) % VBG Base Excess (-2 - +2) mmol/L Sodium 132 L (135-145) mmol/L Potassium 4.1 (3.5-5.0) mmol/L Chloride 97 L (101-111) mmol/L Carbon Dioxide 23 (21-32) mmol/L Anion Gap 12.0 (6-13) BUN 17 (6-20) mg/dL Creatinine 0.7 (0.4-1.0) mg/dL Estimated GFR (MDRD) 93 (>89) Glucose 218 H (70-100) mg/dL POC Whole Bld Glucose 198 H 214 H (70 - 100) mg/dL Glycated Hemoglobin (4.6-6.2) % Estim Average Glucose (70-100) Calcium 8.6 (8.5-10.3) mg/dL Phosphorus (2.5-4.6) mg/dL Magnesium 1.9 (1.7-2.8) mg/dL Troponin I (<0.49) ng/mL Triglycerides ( - 149) mg/dL Serum Ketones MODERATE H (NEGATIVE) 10/08/17 10/08/17 10/08/17 Range/Units 18:50 17:50 17:50 WBC (4.8-10.8) x10^3/uL RBC (4.20-5.40) 10^6/uL Hgb (12.0-16.0) g/dL Hct (37.0-47.0) % MCV (81.0-99.0) fL MCH (27.0-31.0) pg MCHC (32.0-36.0) g/dL RDW (12.0-15.0) % Plt Count (130-450) 10^3/uL MPV (7.9-10.8) fL VBG pH (7.31-7.41) VBG pCO2 (41-51) mmHg VBG pO2 (25-47) mmHg VBG HCO3 (23-28) mmol/L VBG Total CO2 (24-29) mmol/L VBG O2 Saturation (60-80) % VBG Base Excess (-2 - +2) mmol/L Sodium (135-145) mmol/L Potassium (3.5-5.0) mmol/L Chloride (101-111) mmol/L Carbon Dioxide (21-32) mmol/L Anion Gap (6-13) BUN (6-20) mg/dL Creatinine (0.4-1.0) mg/dL Estimated GFR (MDRD) (>89) Glucose 206 H (70-100) mg/dL POC Whole Bld Glucose (70 - 100) mg/dL Glycated Hemoglobin (4.6-6.2) % Estim Average Glucose (70-100) Calcium (8.5-10.3) mg/dL Phosphorus (2.5-4.6) mg/dL Magnesium Cancelled (1.7-2.8) mg/dL Troponin I < 0.04 (<0.49) ng/mL Triglycerides ( - 149) mg/dL Serum Ketones MODERATE H (NEGATIVE) 10/08/17 10/08/17 Range/Units 17:50 17:50 WBC (4.8-10.8) x10^3/uL RBC (4.20-5.40) 10^6/uL Hgb (12.0-16.0) g/dL Hct (37.0-47.0) % MCV (81.0-99.0) fL MCH (27.0-31.0) pg MCHC (32.0-36.0) g/dL RDW (12.0-15.0) % Plt Count (130-450) 10^3/uL MPV (7.9-10.8) fL VBG pH 7.384 (7.31-7.41) VBG pCO2 42.2 (41-51) mmHg VBG pO2 49.3 H (25-47) mmHg VBG HCO3 24.6 (23-28) mmol/L VBG Total CO2 25.9 (24-29) mmol/L VBG O2 Saturation 85.1 H (60-80) % VBG Base Excess -0.5 (-2 - +2) mmol/L Sodium 127 L (135-145) mmol/L Potassium 4.7 (3.5-5.0) mmol/L Chloride 91 L (101-111) mmol/L Carbon Dioxide 23 (21-32) mmol/L Anion Gap 13.0 (6-13) BUN 17 (6-20) mg/dL Creatinine 0.8 (0.4-1.0) mg/dL Estimated GFR (MDRD) 80 L (>89) Glucose 329 H (70-100) mg/dL POC Whole Bld Glucose (70 - 100) mg/dL Glycated Hemoglobin (4.6-6.2) % Estim Average Glucose (70-100) Calcium 9.0 (8.5-10.3) mg/dL Phosphorus (2.5-4.6) mg/dL Magnesium 1.9 (1.7-2.8) mg/dL Troponin I (<0.49) ng/mL Triglycerides ( - 149) mg/dL Serum Ketones (NEGATIVE) Assessment/Plan - Problem List (1) DKA (diabetic ketoacidoses) Impression: The insulin drip has been stopped and the patient is now on D5W. She has had some crackers this afternoon and will start eating this evening. She still does not feel well, and this may be due to the upper respiratory infection which may have precipitated this bout of DKA. She still shows small amounts of ketones in her blood and we will continue with the current regimen until she no longer has ketones. Qualifiers: Diabetes mellitus type: due to underlying condition Diabetes mellitus complication detail: without coma Qualified Code(s): E08.10 - Diabetes mellitus due to underlying condition with ketoacidosis without coma (2) CHF (congestive heart failure) Impression: There is no evidence of congestive heart failure at this time and the patient is not on any maintenance fluids. Continue with present care Qualifiers: Congestive heart failure type: unspecified congestive heart failure type (3) Hypercholesterolemia Impression: Continue atorvastatin. (4) Depression (emotion) Impression: The patient seems sad but denies being depressed. She says she just does not feel well. Continue effexor. (5) Gastroesophageal reflux disease Impression: No new complaints of gastroesophageal reflux pain. Continue Protonix. Qualifiers: Esophagitis presence: without esophagitis Qualified Code(s): K21.9 - Gastro -esophageal reflux disease without esophagitis (6) Hypothyroidism Impression: TSH is 5.19. Continue current Levothyroxine dosing. Qualifiers: Hypothyroidism type: other Qualified Code(s): E03.8 - Other specified hypothyroidism
[2017-10-09] MEDS ORDERED: INSULIN GLARGINE 300 UNIT/3 ML PEN SUBQ SCH (21:00)
[2017-10-09] MEDS: ATORVASTATIN 40 MG TABLET PO SCH (21:06)
[2017-10-09] MEDS: AMITRIPTYLINE 25 MG TABLET PO SCH (21:07)
[2017-10-09] MEDS: INSULIN GLARGINE 300 UNIT/3 ML PEN SUBQ SCH (21:52)
[2017-10-10] MEDS: SODIUM CHLORIDE FLUSH 0.9% 10 ML SYRINGE IVP PRN ×5 (03:16→21:04)
[2017-10-10] MEDS: HYDROmorphone 1 MG/ML SYRINGE IVP PRN ×7 (03:20→21:04)
[2017-10-10 03:44] LABS: CALCIUM 7.8 mg/dL (8.5-10.3); CREATININE 0.6 mg/dL (0.4-1.0)
[2017-10-10 03:52] LABS: HGB - HEMOGLOBIN 11.5 g/dL (12.0-16.0); MEAN CORPUSCULAR HEMOGLOBIN 31.7 pg (27.0-31.0); MEAN CORPUSCULAR HGB CONC 33.7 g/dL (32.0-36.0); MEAN CORPUSCULAR VOLUME 94.1 fL (81.0-99.0); MEAN PLATELET VOLUME 6.7 fL (7.9-10.8); RED BLOOD COUNT 3.61 10^6/uL (4.20-5.40); RED CELL DISTRIBUTION WIDTH 12.7 % (12.0-15.0); WHITE BLOOD COUNT 5.3 x10^3/uL (4.8-10.8)
[2017-10-10 04:13] LABS: ALBUMIN 2.8 g/dL (3.2-5.5); PHOSPHORUS 3.6 mg/dL (2.5-4.6)
[2017-10-10] MEDS: LEVOTHYROXINE 125 MCG TABLET PO SCH (06:23)
[2017-10-10] MEDS: INSULIN ASPART 300 UNIT/3 ML PEN SUBQ SCH ×4 (08:08→20:20)
[2017-10-10] MEDS: LISINOPRIL 20 MG TABLET PO SCH (09:12)
[2017-10-10] MEDS: ASPIRIN EC 81 MG TABLET PO SCH (09:13)
[2017-10-10] MEDS: FAMOTIDINE 20 MG TABLET PO SCH ×2 (09:13→20:20)
[2017-10-10] MEDS: METOPROLOL SUCCINATE 25 MG TABLET PO SCH (09:13)
[2017-10-10] MEDS: VENLAFAXINE ER 75 MG CAPSULE PO SCH (09:14)
[2017-10-10] MEDS: SODIUM CHLORIDE FLUSH 0.9% 10 ML SYRINGE IVP SCH ×2 (09:14→16:55)
[2017-10-10] MEDS: INSULIN GLARGINE 300 UNIT/3 ML PEN SUBQ SCH ×2 (09:18→20:18)
--- NOTE | 2017-10-10 17:13 | PROVIDER PROGRESS NOTE ---
Subjective - Prog Note Date Prog Note Date: 10/10/17 Prog Note Time: 15:00 - Subjective Pt reports feeling: Improved (Patient says she is feeling better, more like herself but still has discomfort associated with her upper respiratory infection.She denies any fever or chills, shortness of breath or dyspnea with exertion. She is eating and moving her bowels.) Current Medications - Current Medications Current Medications: Amitriptyline, aspirin, atorvastatin, cyclobenzaprine, D5W, famotidine, hydromorphone, insulin, levothyroxine,Lisinopril, metoprolol, Compazine, sodium chloride, temazepam, Effexor Objective - Vital Signs/Intake & Output Reviewed Vital Signs: Yes Vital Signs: Vital Signs Temp Pulse Resp BP Pulse Ox 10/10/17 16:19 36.9 C 101 H 18 141/80 H 98 Intake & Output: Intake & Output 10/07/17 10/08/17 10/09/17 10/10/17 23:59 23:59 23:59 23:59 Intake Total 1360 2764.310 820 Output Total 0 0 700 Balance 1360 2764.310 120 - Objective General Appearance: positive: No acute distress, Alert, Mild distress Eyes Bilateral: positive: Normal inspection, PERRL, EOMI, No lid inflammation, Conjunctivae nml, No scleral icterus ENT: positive: ENT inspection nml, Pharynx nml, No signs of dehydration Neck: positive: Nml inspection, Thyroid nml, No JVD, Trachea midline. negative : Thyromegaly Respiratory: positive: Chest non-tender, No respiratory distress, Breath sounds nml. negative: Wheezes, Rales, Rhonchi Cardiovascular: positive: Regular rate & rhythm, No murmur, No gallop Abdomen: positive: Non-tender, No organomegaly, Nml bowel sounds, No distention. negative: Guarding, Rebound Back: positive: Nml inspection. negative: CVA tenderness (R), CVA tenderness (L ) Skin: positive: Color nml, No rash, Warm, Dry. negative: Cyanosis Extremities: positive: Non-tender, Full ROM, Nml appearance, No pedal edema Neurologic/Psychiatric: positive: Oriented x3, CN's nml (2-12), Motor nml, Sensation nml, Mood/affect nml - Lab Results Fish Bones: 10/10/17 03:16 10/10/17 03:16 Other Labs: Lab Results x24hrs 10/10/17 10/10/17 10/10/17 Range/Units 16:16 11:39 07:36 WBC (4.8-10.8) x10^3/uL RBC (4.20-5.40) 10^6/uL Hgb (12.0-16.0) g/dL Hct (37.0-47.0) % MCV (81.0-99.0) fL MCH (27.0-31.0) pg MCHC (32.0-36.0) g/dL RDW (12.0-15.0) % Plt Count (130-450) 10^3/uL MPV (7.9-10.8) fL Sodium (135-145) mmol/L Potassium (3.5-5.0) mmol/L Chloride (101-111) mmol/L Carbon Dioxide (21-32) mmol/L Anion Gap (6-13) BUN (6-20) mg/dL Creatinine (0.4-1.0) mg/dL Estimated GFR (MDRD) (>89) Glucose (70-100) mg/dL POC Whole Bld Glucose 244 H 198 H 246 H (70 - 100) mg/dL Calcium (8.5-10.3) mg/dL Phosphorus (2.5-4.6) mg/dL Albumin (3.2-5.5) g/dL Serum Ketones (NEGATIVE) 10/10/17 10/10/17 10/10/17 Range/Units 04:02 03:16 03:16 WBC (4.8-10.8) x10^3/uL RBC (4.20-5.40) 10^6/uL Hgb (12.0-16.0) g/dL Hct (37.0-47.0) % MCV (81.0-99.0) fL MCH (27.0-31.0) pg MCHC (32.0-36.0) g/dL RDW (12.0-15.0) % Plt Count (130-450) 10^3/uL MPV (7.9-10.8) fL Sodium 137 (135-145) mmol/L Potassium 3.9 (3.5-5.0) mmol/L Chloride 102 (101-111) mmol/L Carbon Dioxide 26 (21-32) mmol/L Anion Gap 9.0 (6-13) BUN 15 (6-20) mg/dL Creatinine 0.6 (0.4-1.0) mg/dL Estimated GFR (MDRD) 111 (>89) Glucose 147 H (70-100) mg/dL POC Whole Bld Glucose (70 - 100) mg/dL Calcium 7.8 L (8.5-10.3) mg/dL Phosphorus 3.6 (2.5-4.6) mg/dL Albumin 2.8 L (3.2-5.5) g/dL Serum Ketones SMALL H (NEGATIVE) 18 10/09/17 Range/Units 03:16 20:28 WBC 5.3 (4.8-10.8) x10^3/uL RBC 3.61 L (4.20-5.40) 10^6/uL Hgb 11.5 L (12.0-16.0) g/dL Hct 34.0 L (37.0-47.0) % MCV 94.1 (81.0-99.0) fL MCH 31.7 H (27.0-31.0) pg MCHC 33.7 (32.0-36.0) g/dL RDW 12.7 (12.0-15.0) % Plt Count 245 (130-450) 10^3/uL MPV 6.7 L (7.9-10.8) fL Sodium (135-145) mmol/L Potassium (3.5-5.0) mmol/L Chloride (101-111) mmol/L Carbon Dioxide (21-32) mmol/L Anion Gap (6-13) BUN (6-20) mg/dL Creatinine (0.4-1.0) mg/dL Estimated GFR (MDRD) (>89) Glucose (70-100) mg/dL POC Whole Bld Glucose 273 H (70 - 100) mg/dL Calcium (8.5-10.3) mg/dL Phosphorus (2.5-4.6) mg/dL Albumin (3.2-5.5) g/dL Serum Ketones (NEGATIVE) Assessment/Plan - Problem List (1) DKA (diabetic ketoacidoses) Impression: Likely resolved, rechecking serum ketones as the last value was "small", but was early this morning. Pt is off of the insulin drip, on sliding scale. Continue present care. Qualifiers: Diabetes mellitus type: due to underlying condition Diabetes mellitus complication detail: without coma Qualified Code(s): E08.10 - Diabetes mellitus due to underlying condition with ketoacidosis without coma (2) CHF (congestive heart failure) Impression: There is no evidence of congestive heart failure at this time and the patient is not on any maintenance fluids. Continue with present care Qualifiers: Congestive heart failure type: unspecified congestive heart failure type (3) Hypercholesterolemia Impression: Continue atorvastatin (4) Depression (emotion) Impression: The patient's mood seems better today. She still relates that she does not feel well. Continue Effexor. (5) Gastroesophageal reflux disease Impression: Well-managed with Protonix. Continue present care. Qualifiers: Esophagitis presence: without esophagitis Qualified Code(s): K21.9 - Gastro -esophageal reflux disease without esophagitis (6) Hypothyroidism Impression: TSH is 5.19. Continue current levothyroxine dosing. Suspect that the patient' s TSH levels are elevated due to stress. Qualifiers: Hypothyroidism type: other Qualified Code(s): E03.8 - Other specified hypothyroidism
[2017-10-10] MEDS: AMITRIPTYLINE 25 MG TABLET PO SCH (20:19)
[2017-10-10] MEDS: ATORVASTATIN 40 MG TABLET PO SCH (20:20)
[2017-10-11] MEDS: HYDROmorphone 1 MG/ML SYRINGE IVP PRN ×5 (00:04→12:33)
[2017-10-11] MEDS: SODIUM CHLORIDE FLUSH 0.9% 10 ML SYRINGE IVP SCH ×3 (00:05→17:17)
[2017-10-11] MEDS: SODIUM CHLORIDE FLUSH 0.9% 10 ML SYRINGE IVP PRN ×4 (03:26→15:33)
[2017-10-11 03:55] LABS: HGB - HEMOGLOBIN 11.1 g/dL (12.0-16.0); MEAN CORPUSCULAR HEMOGLOBIN 32.3 pg (27.0-31.0); MEAN CORPUSCULAR HGB CONC 34.3 g/dL (32.0-36.0); MEAN CORPUSCULAR VOLUME 94.3 fL (81.0-99.0); MEAN PLATELET VOLUME 7.2 fL (7.9-10.8); RED BLOOD COUNT 3.43 10^6/uL (4.20-5.40); RED CELL DISTRIBUTION WIDTH 12.5 % (12.0-15.0); WHITE BLOOD COUNT 4.5 x10^3/uL (4.8-10.8)
[2017-10-11 04:03] LABS: ALBUMIN 2.5 g/dL (3.2-5.5); CALCIUM 7.9 mg/dL (8.5-10.3); CREATININE 0.6 mg/dL (0.4-1.0); PHOSPHORUS 3.1 mg/dL (2.5-4.6)
[2017-10-11 04:48] LABS: CALCIUM 7.9 mg/dL (8.5-10.3)
[2017-10-11 04:52] LABS: VBG PH 7.323 (7.31-7.41)
[2017-10-11] MEDS: LEVOTHYROXINE 125 MCG TABLET PO SCH (06:18)
[2017-10-11] MEDS: INSULIN ASPART 300 UNIT/3 ML PEN SUBQ SCH ×4 (07:58→21:28)
[2017-10-11] MEDS: ASPIRIN EC 81 MG TABLET PO SCH (10:19)
[2017-10-11] MEDS: INSULIN GLARGINE 300 UNIT/3 ML PEN SUBQ SCH ×2 (10:20→21:27)
[2017-10-11] MEDS: LISINOPRIL 20 MG TABLET PO SCH (10:20)
[2017-10-11] MEDS: FAMOTIDINE 20 MG TABLET PO SCH ×2 (10:20→21:25)
[2017-10-11] MEDS: VENLAFAXINE ER 75 MG CAPSULE PO SCH (10:21)
[2017-10-11] MEDS: METOPROLOL SUCCINATE 25 MG TABLET PO SCH (10:21)
[2017-10-11] MEDS: HYDROmorphone 1 MG/ML CARPUJECT IVP PRN ×3 (15:30→21:26)
--- NOTE | 2017-10-11 16:00 | PROVIDER PROGRESS NOTE ---
Subjective - Prog Note Date Prog Note Date: 10/11/17 Prog Note Time: 15:00 - Subjective Pt reports feeling: Improved Subjective: Patient says she feels better today. She feels more like herself, much closer to her baseline. Her only complaint is of her upper respiratory infection symptoms. She is weak but otherwise has no new complaints. She denies any shortness of breath, fever or chills. Current Medications - Current Medications Current Medications: Amitriptyline, aspirin, atorvastatin, cyclobenzaprine, D5W, famotidine, hydromorphone, insulin, levothyroxine,Lisinopril, metoprolol, Compazine, sodium chloride, temazepam, Effexor Objective - Vital Signs/Intake & Output Reviewed Vital Signs: Yes Intake & Output: Intake & Output 10/08/17 10/09/17 10/10/17 10/11/17 23:59 23:59 23:59 23:59 Intake Total 1360 2764.310 1420 700 Output Total 0 0 1650 950 Balance 1360 2764.310 -230 -250 - Objective General Appearance: positive: No acute distress, Alert Eyes Bilateral: positive: Normal inspection, PERRL, EOMI, No lid inflammation, Conjunctivae nml, No scleral icterus ENT: positive: ENT inspection nml, Pharynx nml, No signs of dehydration Neck: positive: Nml inspection, Thyroid nml, No JVD, Trachea midline. negative : Thyromegaly Respiratory: positive: Chest non-tender, No respiratory distress, Breath sounds nml. negative: Wheezes, Rales, Rhonchi Cardiovascular: positive: Regular rate & rhythm, No murmur, No gallop Abdomen: positive: Non-tender, No organomegaly, Nml bowel sounds, No distention. negative: Guarding, Rebound Back: positive: Nml inspection. negative: CVA tenderness (R), CVA tenderness (L ) Skin: positive: Color nml, No rash, Warm, Dry. negative: Cyanosis Extremities: positive: Non-tender, Full ROM, Nml appearance, No pedal edema Neurologic/Psychiatric: positive: Oriented x3, CN's nml (2-12), Motor nml, Sensation nml, Mood/affect nml - Lab Results Fish Bones: 10/11/17 03:15 10/11/17 03:15 Other Labs: Lab Results x24hrs 18 18 10/11/17 Range/Units 11:46 07:53 03:15 WBC (4.8-10.8) x10^3/uL RBC (4.20-5.40) 10^6/uL Hgb (12.0-16.0) g/dL Hct (37.0-47.0) % MCV (81.0-99.0) fL MCH (27.0-31.0) pg MCHC (32.0-36.0) g/dL RDW (12.0-15.0) % Plt Count (130-450) 10^3/uL MPV (7.9-10.8) fL VBG pH 7.323 (7.31-7.41) Ionized Calcium 1.10 L (1.15-1.33) mmol/L Sodium (135-145) mmol/L Potassium (3.5-5.0) mmol/L Chloride (101-111) mmol/L Carbon Dioxide (21-32) mmol/L Anion Gap (6-13) BUN (6-20) mg/dL Creatinine (0.4-1.0) mg/dL Estimated GFR (MDRD) (>89) Glucose (70-100) mg/dL POC Whole Bld Glucose 214 H 82 (70 - 100) mg/dL Calcium (8.5-10.3) mg/dL Phosphorus (2.5-4.6) mg/dL Magnesium (1.7-2.8) mg/dL Albumin (3.2-5.5) g/dL Serum Ketones (NEGATIVE) 10/11/17 10/11/17 10/11/17 Range/Units 03:15 03:15 03:15 WBC (4.8-10.8) x10^3/uL RBC (4.20-5.40) 10^6/uL Hgb (12.0-16.0) g/dL Hct (37.0-47.0) % MCV (81.0-99.0) fL MCH (27.0-31.0) pg MCHC (32.0-36.0) g/dL RDW (12.0-15.0) % Plt Count (130-450) 10^3/uL MPV (7.9-10.8) fL VBG pH (7.31-7.41) Ionized Calcium YES (1.15-1.33) mmol/L Sodium 136 (135-145) mmol/L Potassium 4.2 (3.5-5.0) mmol/L Chloride 101 (101-111) mmol/L Carbon Dioxide 28 (21-32) mmol/L Anion Gap 7.0 (6-13) BUN 16 (6-20) mg/dL Creatinine 0.6 (0.4-1.0) mg/dL Estimated GFR (MDRD) 111 (>89) Glucose 227 H (70-100) mg/dL POC Whole Bld Glucose (70 - 100) mg/dL Calcium 7.9 L 7.9 L (8.5-10.3) mg/dL Phosphorus 3.1 (2.5-4.6) mg/dL Magnesium 2.0 (1.7-2.8) mg/dL Albumin 2.5 L (3.2-5.5) g/dL Serum Ketones (NEGATIVE) 10/11/17 10/10/17 10/10/17 Range/Units 03:15 20:14 17:36 WBC 4.5 L (4.8-10.8) x10^3/uL RBC 3.43 L (4.20-5.40) 10^6/uL Hgb 11.1 L (12.0-16.0) g/dL Hct 32.3 L (37.0-47.0) % MCV 94.3 (81.0-99.0) fL MCH 32.3 H (27.0-31.0) pg MCHC 34.3 (32.0-36.0) g/dL RDW 12.5 (12.0-15.0) % Plt Count 212 (130-450) 10^3/uL MPV 7.2 L (7.9-10.8) fL VBG pH (7.31-7.41) Ionized Calcium (1.15-1.33) mmol/L Sodium (135-145) mmol/L Potassium (3.5-5.0) mmol/L Chloride (101-111) mmol/L Carbon Dioxide (21-32) mmol/L Anion Gap (6-13) BUN (6-20) mg/dL Creatinine (0.4-1.0) mg/dL Estimated GFR (MDRD) (>89) Glucose (70-100) mg/dL POC Whole Bld Glucose 129 H (70 - 100) mg/dL Calcium (8.5-10.3) mg/dL Phosphorus (2.5-4.6) mg/dL Magnesium (1.7-2.8) mg/dL Albumin (3.2-5.5) g/dL Serum Ketones NEGATIVE (NEGATIVE) 10/10/17 Range/Units 16:16 WBC (4.8-10.8) x10^3/uL RBC (4.20-5.40) 10^6/uL Hgb (12.0-16.0) g/dL Hct (37.0-47.0) % MCV (81.0-99.0) fL MCH (27.0-31.0) pg MCHC (32.0-36.0) g/dL RDW (12.0-15.0) % Plt Count (130-450) 10^3/uL MPV (7.9-10.8) fL VBG pH (7.31-7.41) Ionized Calcium (1.15-1.33) mmol/L Sodium (135-145) mmol/L Potassium (3.5-5.0) mmol/L Chloride (101-111) mmol/L Carbon Dioxide (21-32) mmol/L Anion Gap (6-13) BUN (6-20) mg/dL Creatinine (0.4-1.0) mg/dL Estimated GFR (MDRD) (>89) Glucose (70-100) mg/dL POC Whole Bld Glucose 244 H (70 - 100) mg/dL Calcium (8.5-10.3) mg/dL Phosphorus (2.5-4.6) mg/dL Magnesium (1.7-2.8) mg/dL Albumin (3.2-5.5) g/dL Serum Ketones (NEGATIVE) Assessment/Plan - Problem List (1) DKA (diabetic ketoacidoses) Impression: Resolved, the patient has been transferred to the medical surgical floor.Unless there are any unexpected events tonight we will discharge her tomorrow. Qualifiers: Diabetes mellitus type: due to underlying condition Diabetes mellitus complication detail: without coma Qualified Code(s): E08.10 - Diabetes mellitus due to underlying condition with ketoacidosis without coma (2) CHF (congestive heart failure) Impression: There is no evidence of any congestive heart failure exacerbation component and the patient is not on any maintenance fluids. Continue with present care. Qualifiers: Congestive heart failure type: unspecified congestive heart failure type (3) Hypercholesterolemia Impression: Continue atorvastatin. (4) Depression (emotion) Impression: The patient is smiling today for the first time since her hospitalization. Continue Effexor. (5) Gastroesophageal reflux disease Impression: No complaints of gastroesophageal reflux. Continue Protonix Qualifiers: Esophagitis presence: without esophagitis Qualified Code(s): K21.9 - Gastro -esophageal reflux disease without esophagitis (6) Hypothyroidism Impression: TSH is 5.19, continue curent levothyroxine dosing. Qualifiers: Hypothyroidism type: other Qualified Code(s): E03.8 - Other specified hypothyroidism
[2017-10-11] MEDS: ATORVASTATIN 40 MG TABLET PO SCH (21:25)
[2017-10-11] MEDS: AMITRIPTYLINE 25 MG TABLET PO SCH (21:25)
[2017-10-12] MEDS: HYDROmorphone 1 MG/ML CARPUJECT IVP PRN ×4 (00:32→10:14)
[2017-10-12] MEDS: SODIUM CHLORIDE FLUSH 0.9% 10 ML SYRINGE IVP SCH ×2 (00:33→09:10)
[2017-10-12] MEDS: SODIUM CHLORIDE FLUSH 0.9% 10 ML SYRINGE IVP PRN ×4 (03:45→07:04)
[2017-10-12 06:03] LABS: HGB - HEMOGLOBIN 11.6 g/dL (12.0-16.0); MEAN CORPUSCULAR HEMOGLOBIN 31.3 pg (27.0-31.0); MEAN CORPUSCULAR HGB CONC 33.5 g/dL (32.0-36.0); MEAN CORPUSCULAR VOLUME 93.3 fL (81.0-99.0); MEAN PLATELET VOLUME 7.2 fL (7.9-10.8); RED BLOOD COUNT 3.69 10^6/uL (4.20-5.40); RED CELL DISTRIBUTION WIDTH 12.5 % (12.0-15.0)
[2017-10-12 06:14] LABS: CALCIUM 8.3 mg/dL (8.5-10.3)
[2017-10-12 06:18] LABS: ALBUMIN 2.7 g/dL (3.2-5.5); CALCIUM 8.2 mg/dL (8.5-10.3); CREATININE 0.5 mg/dL (0.4-1.0); MAGNESIUM 1.8 mg/dL (1.7-2.8); PHOSPHORUS 3.9 mg/dL (2.5-4.6); VBG PH 7.339 (7.31-7.41)
[2017-10-12] MEDS: LEVOTHYROXINE 125 MCG TABLET PO SCH (07:02)
[2017-10-12 07:46] VITALS: BP 133/75
[2017-10-12] MEDS: INSULIN ASPART 300 UNIT/3 ML PEN SUBQ SCH (08:10)
[2017-10-12] MEDS: METOPROLOL SUCCINATE 25 MG TABLET PO SCH (09:09)
[2017-10-12] MEDS: FAMOTIDINE 20 MG TABLET PO SCH (09:09)
[2017-10-12] MEDS: VENLAFAXINE ER 75 MG CAPSULE PO SCH (09:09)
[2017-10-12] MEDS: LISINOPRIL 20 MG TABLET PO SCH (09:09)
[2017-10-12] MEDS: ASPIRIN EC 81 MG TABLET PO SCH (09:09)
[2017-10-12] MEDS: INSULIN GLARGINE 300 UNIT/3 ML PEN SUBQ SCH (09:10)
--- NOTE | 2017-10-12 11:19 | Discharge Plan ---
Discharge Plan Disposition: 01 Home, Self Care Condition: Stable Prescriptions: Oxycodone HCl/Acetaminophen [Oxycodone-Acetaminophen 5-325] 1 each PO Q4H #20 tablet Diet: Diabetic Activity Restrictions: Activity as Tolerated Shower Restrictions: No Driving Restrictions: No No Smoking: If you smoke, Please STOP! Call for help. Follow-up with: Amisha Staton DO [Primary Care Provider] -
--- NOTE | 2017-10-12 11:51 | DISCHARGE SUMMARY ---
Discharge Summary Admit Date: 10/08/17 Discharge Date: 10/12/17 Discharging Provider: Silvia Espinal Primary Care Provider: Amisha Staton Code Status: Attempt Resuscitation Condition at Discharge: Stable Discharge Disposition: 01 Home, Self Care - DIAGNOSES Admission Diagnoses: 1. Diabetic ketoacidosis 2. Congestive heart failure 3. Hypercholesterolemia 4. Depression 5. Gastroesophageal reflux disease 6. Hypothyroidism Discharge Diagnoses with Status of Each Condition: 1. Diabetic ketoacidosis- Corrected, resolved. The patient's electrolytes have been corrected as well. There is no longer any ketones in the patient's serum and she is back on her home medication regimen. 2. Congestive heart failure- There was no evidence of acute exacerbation of congestive heart failure during his hospitalization. Continue home care. 3. Hypercholesterolemia -The patient will resume atorvastatin at home. 4. Depression -Patient appears to be good spirits continue Elavil and Effexor. 5. Gastroesophageal reflux disease -No complaints of gastroesophageal reflux. Continue Protonix. 6. Hypothyroidism- The TSH was checked while the patient was inpatient and was high normal. Recommend rechecking when the patient is not under stress. - HPI History of Present Illness: Ms. Alicia Balderas is a very pleasant 37-year-old female with a long history of type 1 diabetes, nearly 30 years now, and multiple admissions for diabetic ketoacidosis. The patient began to experience an upper respiratory infection several days ago and unfortunately continued to get worse until today when she came in because she was feeling as if there was something wrong. Upon presentation to the [facility] emergency department she was found to have an upper respiratory infection with a heart rate of 126 and respiratory rate of 24. Her bicarb was 17 and she had ketones positive in her blood. She is therefore being brought in for diabetic ketoacidosis and an underlying upper respiratory infection. - HOSPITAL COURSE Hospital Course: The patient was admitted to the intensive care unit and placed on an insulin drip.She was judged to be dehydrated and her fluids were replaced, her electrolytes were corrected and she began eating. She had some abdominal pain which was well-managed with use of hydromorphone and she continued to improve. Her upper respiratory infection symptoms abated and the patient was moved into the medical surgical floor where she continued to do well until she is discharged today. - ALLERGIES Allergies/Adverse Reactions: Allergies Allergy/AdvReac Type Severity Reaction Status Date / Time sulfamethoxazole Allergy Intermediate rash/ Verified 10/08/17 12:11 [From Bactrim] adhesive Allergy Rash Verified 10/08/17 12:11 amoxicillin [Amoxicillin] Allergy unknown Verified 10/08/17 12:11 oxycodone [Oxycodone] AdvReac Intermediate hallucinate, Verified 10/08/17 12:11 vomit promethazine HCl * AdvReac Mild Nausea Verified 10/08/17 12:11 [From Phenergan] - MEDICATIONS Home Medications: Ambulatory Orders Medication Instructions Recorded Confirmed Insulin Glargine,Hum.rec.anlog 27 unit SQ DAILY 05/24/13 10/08/17 [Lantus] Lorazepam [Ativan] 1 mg PO QPM PRN 08/29/13 10/08/17 Insulin Glargine,Hum.rec.anlog 32 units SUBQ QPM 09/05/13 10/08/17 [Lantus Solostar] Amitriptyline [Elavil] 75 mg PO QPM 07/03/14 10/08/17 Pantoprazole [Protonix] 40 mg PO QDAC 01/17/15 10/08/17 Venlafaxine ER [Effexor ER] 150 mg PO DAILY 08/27/15 10/08/17 Cyclobenzaprine [Flexeril] 10 mg PO TID PRN #15 tablet 12/01/15 10/08/17 Lisinopril 10 mg PO DAILY 10/02/16 10/08/17 Spironolactone 25 mg PO DAILY 04/11/17 10/08/17 Aspirin [Aspirin EC] 81 mg PO DAILY 10/08/17 10/08/17 Atorvastatin Calcium 80 mg PO QPM 10/08/17 10/08/17 Furosemide 80 mg PO DAILY 10/08/17 10/08/17 Insulin Aspart [Novolog Flexpen] 0 - 15 units SUBQ TIDWM 10/08/17 10/08/17 Levothyroxine Sodium 250 mcg PO QDAC 10/08/17 10/08/17 Metoprolol Succinate 25 mg PO DAILY 10/08/17 10/08/17 Oxycodone HCl/Acetaminophen 1 each PO Q4H #20 tablet 10/12/17 [Oxycodone-Acetaminophen 5-325] - PHYSICAL EXAM AT DISCHARGE General Appearance: positive: No acute distress, Alert Eyes Bilateral: positive: Normal inspection, PERRL, EOMI, No lid inflammation, Conjunctivae nml, No scleral icterus ENT: positive: ENT inspection nml, Pharynx nml, No signs of dehydration Neck: positive: Nml inspection, Thyroid nml, No JVD, Trachea midline. negative : Thyromegaly Respiratory: positive: Chest non-tender, No respiratory distress, Breath sounds nml. negative: Wheezes, Rales, Rhonchi Cardiovascular: positive: Regular rate & rhythm, No murmur, No gallop Peripheral Pulses: positive: 1+ Abdomen: positive: Non-tender, No organomegaly, Nml bowel sounds, No distention. negative: Guarding, Rebound Back: positive: Nml inspection. negative: CVA tenderness (R), CVA tenderness (L ) Skin: positive: Color nml, No rash, Warm, Dry. negative: Cyanosis Extremities: positive: Non-tender, Full ROM, Nml appearance Neurologic/Psychiatric: positive: Oriented x3, CN's nml (2-12), Motor nml, Sensation nml, Mood/affect nml - LABS Result Diagrams: 10/12/17 05:50 10/12/17 05:50 - FOLLOW UP Follow Up: With your primary care provider next week. Continue budesonide/formoterol. - TIME SPENT Time Spent in Discharge (Minutes): 45
== END 2017-10-12 13:19 | disposition home or self-care (01) | DRG 639 ==
LOC: ED 12:01 → ICU 17:12 → MS2 10-11 23:41
PROVIDERS: ADMIT Hospitalist; ATTEND Hospitalist
DX: E10.10 Type 1 diabetes mellitus with ketoacidosis without coma (principal); I11.0 Hypertensive heart disease with heart failure; I50.9 Heart failure, unspecified; J06.9 Acute upper respiratory infection, unspecified; E86.0 Dehydration; R10.9 Unspecified abdominal pain; E10.42 Type 1 diabetes mellitus with diabetic polyneuropathy; E03.9 Hypothyroidism, unspecified; E78.00 Pure hypercholesterolemia, unspecified; K21.9 Gastro-esophageal reflux disease without esophagitis; F31.9 Bipolar disorder, unspecified; F41.0 Panic disorder [episodic paroxysmal anxiety]; F43.10 Post-traumatic stress disorder, unspecified; I49.9 Cardiac arrhythmia, unspecified; Z95.0 Presence of cardiac pacemaker; Z79.4 Long term (current) use of insulin; Z79.82 Long term (current) use of aspirin; Z87.01 Personal history of pneumonia (recurrent); Z90.49 Acquired absence of other specified parts of digestive tract; Z91.410 Personal history of adult physical and sexual abuse
CPT/HCPCS: 36415; 36569; 71045; 71046; 74177; 80048; 80053; 81001; 81003; 81025; 82009; 82040; 82310; 82330; 82803; 82947; 83036; 83690; 83735; 83930; 84100; 84443; 84478; 84484; 85025; 87086; 87150; 87275; 87276; 93005; 96374; 99283; 99285

== ENCOUNTER 2017-11-09 18:10 | Emergency (ER) | payer MEDICAID ==
[2017-11-09 19:57] LABS: BILIRUBIN,URINE NEGATIVE (NEGATIVE); GLUCOSE, URINE (UA) 250 mg/dL (NEGATIVE); KETONES,URINE (UA) TRACE mg/dL (NEGATIVE); LEUKOCYTE ESTERASE, URINE NEGATIVE (NEGATIVE); NITRITE,URINE NEGATIVE (NEGATIVE); OCCULT BLOOD,URINE LARGE (NEGATIVE); PH,URINE 5.5 PH (5.0-7.5); PROTEIN,URINE 100 mg/dL (NEGATIVE); UROBILINOGEN,URINE 0.2 (NORMAL) E.U./dL (NORMAL)
[2017-11-09 20:04] LABS: CLARITY,URINE HAZY (CLEAR)
[2017-11-09] MEDS ORDERED: LIDOCAINE 1% 2 ML VIAL SUBQ STA (20:13)
[2017-11-09] MEDS ORDERED: LIDOCAINE 1% 2 ML VIAL ONE (20:24)
[2017-11-09] MEDS ORDERED: HYDROcod/ACETAM 5/325 MG TABLET PO STA (20:27)
[2017-11-09 20:28] LABS: SQUAMOUS EPITHELIAL CELL,UR MANY Squamous (<= Few)
[2017-11-09] MEDS ORDERED: CLINDAMYCIN 150 MG CAPSULE PO STA ×2 (20:28→20:29)
[2017-11-09 20:29] LABS: BACTERIA,URINE Few /HPF (None Seen)
[2017-11-09] MEDS ORDERED: HYDROcod/ACET 5/325 Prepack 4 PO STA (20:29)
--- NOTE | 2017-11-09 20:32 | ED Physician Documentation ---
PD HPI SKIN - Stated complaint Stated Complaint: ELEVATED BS/FEMALE - Chief complaint Chief Complaint: Wound - History obtained from History obtained from: Patient - History of Present Illness Timing - onset: How many days ago (2) Timing - duration: Days (2) Timing - details: Gradual onset, Still present Location: Genitals Quality / character: Painful, Discolored, Raised, Swelling Associated symptoms: Myalgias Contributing factors: Other (hx of MRSA) Similar symptoms before: Diagnosis (abscess MRSA) Recently seen: Admitted (last month for DKA brought on jag a URI) - Additional information Additional information: 37-year-old type I diabetic female has developed pain in her labia on the left side with some swelling erythema and tenderness. She has a lot of pain is barely able to walk because of the pain associated with this. She has had abscesses previously she has had MRSA previously she has had an infection in the leads to her pacemaker has had the pacer replaced in parts 4 times. Most recently was in June 2017.She indicates that she has had some elevation of blood sugar she has been taking some extra insulin and drinking extra fluids and before coming here she took 15 units of insulin. Review of Systems Constitutional: reports: Myalgias, Fatigue, Sweats. denies: Fever Eyes: denies: Decreased vision Ears: denies: Ear pain Nose: denies: Congestion Throat: denies: Sore throat Cardiac: denies: Chest pain / pressure, Palpitations Respiratory: denies: Dyspnea, Cough GI: denies: Abdominal Pain, Nausea, Vomiting : denies: Dysuria Skin: reports: Lesions Musculoskeletal: reports: Extremity pain. 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, Fibroids, Other : None HEENT: None Psych: Depression, Anxiety, Bipolar disorder, Panic attacks, Post traumatic stress disorder, Claustrophobia Musculoskeletal: Gout, Chronic back pain Derm: Other - Past Surgical History Past Surgical History: Yes General: Cholecystectomy, Appendectomy, Hiatal hernia repair, Colonoscopy, EGD /STEEL LAYOUT WORKER: Oophrectomy, Other Cardiovascular: Pacemaker, Other HEENT: Myringotomy (tubes), Tonsil/Adenoidectomy, Other - Present Medications Home Medications: Ambulatory Orders Medication Instructions Recorded Confirmed Insulin Glargine,Hum.rec.anlog 27 unit SQ DAILY 05/24/13 10/08/17 [Lantus] Lorazepam [Ativan] 1 mg PO QPM PRN 08/29/13 10/08/17 Insulin Glargine,Hum.rec.anlog 32 units SUBQ QPM 09/05/13 10/08/17 [Lantus Solostar] Amitriptyline [Elavil] 75 mg PO QPM 07/03/14 10/08/17 Pantoprazole [Protonix] 40 mg PO QDAC 01/17/15 10/08/17 Venlafaxine ER [Effexor ER] 150 mg PO DAILY 08/27/15 10/08/17 Cyclobenzaprine [Flexeril] 10 mg PO TID PRN #15 tablet 12/01/15 10/08/17 Lisinopril 10 mg PO DAILY 10/02/16 10/08/17 Spironolactone 25 mg PO DAILY 04/11/17 10/08/17 Aspirin [Aspirin EC] 81 mg PO DAILY 10/08/17 10/08/17 Atorvastatin Calcium 80 mg PO QPM 10/08/17 10/08/17 Furosemide 80 mg PO DAILY 10/08/17 10/08/17 Insulin Aspart [Novolog Flexpen] 0 - 15 units SUBQ TIDWM 10/08/17 10/08/17 Levothyroxine Sodium 250 mcg PO QDAC 10/08/17 10/08/17 Metoprolol Succinate 25 mg PO DAILY 10/08/17 10/08/17 Oxycodone HCl/Acetaminophen 1 each PO Q4H #20 tablet 10/12/17 [Oxycodone-Acetaminophen 5-325] Clindamycin [Cleocin] 300 mg PO Q6H 7 Days #28 capsule 11/09/17 HYDROcod/ACETAM 5/325 [[place] 5/325] 1 - 2 ea PO Q6H PRN #15 tablet 11/09/17 - Allergies Allergies/Adverse Reactions: Allergies Allergy/AdvReac Type Severity Reaction Status Date / Time sulfamethoxazole Allergy Intermediate rash/ Verified 10/08/17 12:11 [From Bactrim] adhesive Allergy Rash Verified 10/08/17 12:11 amoxicillin [Amoxicillin] Allergy unknown Verified 10/08/17 12:11 oxycodone [Oxycodone] AdvReac Intermediate hallucinate, Verified 10/08/17 12:11 vomit promethazine HCl * AdvReac Mild Nausea Verified 10/08/17 12:11 [From Phenergan] - Social History Does the pt smoke?: No Smoking Status: Never smoker Does the pt drink ETOH?: No Does the pt have substance abuse?: No Substance Use and Type: Marijuana - Immunizations Immunizations are current?: Yes - POLST Patient has POLST: No POLST Status: Full Code PD ED PE NORMAL - Vitals Vital signs reviewed: Yes (Tachycardic and hypertensive) - General General: Alert and oriented X 3, Well developed/nourished, Other (The patient does not appear to be in distress but does appear to be in pain 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 There is no obvious fluctuance there is some superficial drainage from the tip of this mass. The mass is tender. The surrounding erythema is approximately 2 cm x 5 cm.), No edema - Neuro Neuro: No motor deficit, No sensory deficit Eye Opening: Spontaneous Motor: Obeys Commands Verbal: Oriented GCS Score: 15 - Psych Psych: Normal mood, Normal affect Results - Vitals Vitals: Vital Signs - 24 hr 11/09/17 11/09/17 18:20 19:34 Temperature 36.9 C Heart Rate 130 H 120 H Respiratory 22 18 Rate Blood Pressure 141/87 H 166/96 H O2 Saturation 100 97 Oxygen O2 Source Room air - Labs Labs: Laboratory Tests 11/09/17 11/09/17 11/09/17 18:20 19:49 19:51 POC Whole Bld Glucose 181 H 149 H Urine Color YELLOW Urine Clarity HAZY Urine pH 5.5 Ur Specific [place] >=1.030 H Urine Protein 100 H Urine Glucose (UA) 250 H Urine Ketones TRACE Urine Occult Blood LARGE H Urine Nitrite NEGATIVE Urine Bilirubin NEGATIVE Urine Urobilinogen 0.2 (NORMAL) Ur Leukocyte Esterase NEGATIVE Urine RBC 11-25 H Urine WBC 0-3 Ur Squamous Epith Cells MANY Squamous H Urine Bacteria Few Ur Microscopic Review INDICATED Procedures - Abscess I&D (location) left labia Preparation: Lidocaine 1% Incision: Incised with scalpel, Purulent drainage, Loculations broken, Irrigated , Culture obtained Other: Pt tolerated well, Dressing applied, Antibiotic prescribed - IVC sono (time) 2029 Bedside IVC sono: IVC measures (cm) (1.28), Dehydration (minimal est less than 1 liter) PD MEDICAL DECISION MAKING - ED course Complexity details: reviewed results, re-evaluated patient, considered differential, d/w patient ED course: 37-year-old type I diabetic with a abscess in the left groin does appear to have control of her sugar and her volume status is adequate. She is a difficult IV stick and further workup is not performed at this time. She is administered clindamycin 300 mg orally she is sent home with 300 mg of clindamycin and she is administered hydrocodone. Culture of the wound is obtained. Departure - Departure Disposition: 01 Home, Self Care Clinical Impression: Abscess Condition: Stable Instructions: ED Abscess IandD Follow-Up: Amisha Staton DO [Primary Care Provider] - Prescriptions: Clindamycin [Cleocin] 300 mg PO Q6H 7 Days #28 capsule HYDROcod/ACETAM 5/325 [[place] 5/325] 1 - 2 ea PO Q6H PRN #15 tablet PRN Reason: Pain
[2017-11-09 20:52] VITALS: BP 151/78
== END 2017-11-09 20:58 | disposition home or self-care (01) ==
LOC: ED 18:10
DX: N76.4 Abscess of vulva (principal); I10 Essential (primary) hypertension; E03.9 Hypothyroidism, unspecified
CPT/HCPCS: 56405; 81001; 87070; 87205; 96372; 99283; A9270; 81003

== ENCOUNTER 2017-11-17 14:38 | Outpatient (CLI) | payer MEDICAID ==
[2017-11-17 19:37] LABS: BASOPHILS # (AUTO) 0.1 10^3/uL (0.0-0.1); BASOPHILS % (AUTO) 1.1 %; EOSINOPHILS # (AUTO) 0.1 10^3/uL (0.0-0.7); EOSINOPHILS % (AUTO) 1.1 %; LYMPHOCYTES # (AUTO) 1.1 10^3/uL (1.5-3.5); LYMPHOCYTES % (AUTO) 19.6 %; MEAN CORPUSCULAR HEMOGLOBIN 31.9 pg (27.0-31.0); MEAN CORPUSCULAR HGB CONC 32.6 g/dL (32.0-36.0); MEAN CORPUSCULAR VOLUME 97.8 fL (81.0-99.0); MEAN PLATELET VOLUME 8.1 fL (7.9-10.8); MONOCYTES # (AUTO) 0.3 10^3/uL (0.0-1.0); MONOCYTES % (AUTO) 5.6 %; NEUTROPHILS # (AUTO) 3.9 10^3/uL (1.5-6.6); NEUTROPHILS % (AUTO) 72.6 %; PLT - PLATELET COUNT 312 10^3/uL (130-450); RED BLOOD COUNT 4.07 10^6/uL (4.20-5.40); RED CELL DISTRIBUTION WIDTH 13.7 % (12.0-15.0); WHITE BLOOD COUNT 5.4 x10^3/uL (4.8-10.8)
[2017-11-17 20:31] LABS: ALBUMIN 3.1 g/dL (3.2-5.5); ALBUMIN/GLOBULIN RATIO 0.7 (1.0-2.2); BILIRUBIN,TOTAL 0.3 mg/dL (0.2-1.0); CALCIUM 8.3 mg/dL (8.5-10.3); CREATININE 0.8 mg/dL (0.4-1.0); TOTAL PROTEIN 7.3 g/dL (6.7-8.2)
== END 2017-11-17 14:39 ==
LOC: LAB.WCP 14:38
PROVIDERS: ATTEND Family Medicine
DX: T82.7XXA Infection and inflammatory reaction due to other cardiac and vascular devices, implants and grafts, initial encounter (principal)
CPT/HCPCS: 36415; 80053; 85025; 87040

== ENCOUNTER 2017-11-18 21:05 | Emergency (ER) | payer MEDICAID ==
[2017-11-18] MEDS ORDERED: SODIUM CHLORIDE 0.9% 1,000 ML IV ONE ×2 (21:15→22:56)
[2017-11-18] MEDS ORDERED: ONDANSETRON ODT 4 MG TABLET TL STA (21:27)
[2017-11-18 21:37] LABS: BASOPHILS # (AUTO) 0.1 10^3/uL (0.0-0.1); EOSINOPHILS % (AUTO) 0.9 %; LYMPHOCYTES # (AUTO) 1.2 10^3/uL (1.5-3.5); LYMPHOCYTES % (AUTO) 22.4 %; MEAN CORPUSCULAR HGB CONC 33.4 g/dL (32.0-36.0); MEAN CORPUSCULAR VOLUME 95.9 fL (81.0-99.0); MEAN PLATELET VOLUME 7.1 fL (7.9-10.8); MONOCYTES # (AUTO) 0.4 10^3/uL (0.0-1.0); MONOCYTES % (AUTO) 7.8 %; NEUTROPHILS # (AUTO) 3.7 10^3/uL (1.5-6.6); NEUTROPHILS % (AUTO) 67.9 %; PLT - PLATELET COUNT 278 10^3/uL (130-450); RED BLOOD COUNT 3.75 10^6/uL (4.20-5.40); RED CELL DISTRIBUTION WIDTH 13.5 % (12.0-15.0); WHITE BLOOD COUNT 5.5 x10^3/uL (4.8-10.8)
[2017-11-18 21:39] LABS: VBG BASE EXCESS -1.6 mmol/L (-2 - +2); VBG PCO2 36.7 mmHg (41-51); VBG PH 7.408 (7.31-7.41); VBG PO2 46.5 mmHg (25-47); VBG TOTAL CO2 23.8 mmol/L (24-29)
[2017-11-18 21:51] LABS: ALBUMIN 2.9 g/dL (3.2-5.5); ALBUMIN/GLOBULIN RATIO 0.8 (1.0-2.2); ALKALINE PHOSPHATASE 152 IU/L (42-121); ALT ALANINE AMINOTRANSFERASE 38 IU/L (10-60); AST ASPARTATE AMINOTRANSFERASE 62 IU/L (10-42); BILIRUBIN,TOTAL 0.3 mg/dL (0.2-1.0); BUN - BLOOD UREA NITROGEN 14 mg/dL (6-20); CARBON DIOXIDE - CO2 23 mmol/L (21-32); CHLORIDE 95 mmol/L (101-111); CREATININE 0.8 mg/dL (0.4-1.0); GFR - MDRD 80 (>89); GLUCOSE 333 mg/dL (70-100); LIPASE 31 U/L (22-51); MAGNESIUM 1.6 mg/dL (1.7-2.8); SODIUM 131 mmol/L (135-145); TOTAL PROTEIN 6.6 g/dL (6.7-8.2)
[2017-11-18 22:00] LABS: KETONES, SERUM (ACETEST) NEGATIVE (NEGATIVE)
[2017-11-18] MEDS ORDERED: MORPHINE 10 MG/ML VIAL IVP STA ×2 (22:14→23:51)
[2017-11-18 22:46] LABS: BILIRUBIN,URINE NEGATIVE (NEGATIVE); GLUCOSE, URINE (UA) >=1000 mg/dL (NEGATIVE); KETONES,URINE (UA) NEGATIVE (NEGATIVE); LEUKOCYTE ESTERASE, URINE NEGATIVE (NEGATIVE); NITRITE,URINE NEGATIVE (NEGATIVE); OCCULT BLOOD,URINE NEGATIVE (NEGATIVE); PROTEIN,URINE TRACE mg/dL (NEGATIVE); UROBILINOGEN,URINE 0.2 (NORMAL) E.U./dL (NORMAL)
[2017-11-18 22:50] LABS: CLARITY,URINE CLEAR (CLEAR)
--- NOTE | 2017-11-18 23:03 | ED Physician Documentation ---
History of Present Illness - Stated complaint Stated Complaint: CHEST PX/HBP - Chief complaint Chief Complaint: Cardiac - History obtained from History obtained from: Patient - History of Present Illness Timing: Today - Additonal information Additional information: Patient is a 37 year old female with multiple medical conditions including type 1 diabetes, heart failure (ef 50%), pacemaker who is presenting to the emergency department for dry mouth and fear of dka. Patient states that she has been dealing with a labia infection and is worried that she might be in dka. patient states that she has a dry mouth and her blood sugar was 300. Review of Systems Constitutional: denies: Fever, Chills Ears: denies: Ear pain Cardiac: reports: Chest pain / pressure, Palpitations. denies: Pedal edema Respiratory: denies: Dyspnea, Cough GI: reports: Abdominal Pain. 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, Fibroids, Other : None HEENT: None Psych: Depression, Anxiety, Bipolar disorder, Panic attacks, Post traumatic stress disorder, Claustrophobia Musculoskeletal: Gout, Chronic back pain Derm: Other - Past Surgical History Past Surgical History: Yes General: Cholecystectomy, Appendectomy, Hiatal hernia repair, Colonoscopy, EGD /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, Other Cardiovascular: Pacemaker, Other HEENT: Myringotomy (tubes), Tonsil/Adenoidectomy, Other - Present Medications Home Medications: Ambulatory Orders Medication Instructions Recorded Confirmed Insulin Glargine,Hum.rec.anlog 27 unit SQ DAILY 05/24/13 10/08/17 [Lantus] Lorazepam [Ativan] 1 mg PO QPM PRN 08/29/13 10/08/17 Insulin Glargine,Hum.rec.anlog 32 units SUBQ QPM 09/05/13 10/08/17 [Lantus Solostar] Amitriptyline [Elavil] 75 mg PO QPM 07/03/14 10/08/17 Pantoprazole [Protonix] 40 mg PO QDAC 01/17/15 10/08/17 Venlafaxine ER [Effexor ER] 150 mg PO DAILY 08/27/15 10/08/17 Cyclobenzaprine [Flexeril] 10 mg PO TID PRN #15 tablet 12/01/15 10/08/17 Lisinopril 10 mg PO DAILY 10/02/16 10/08/17 Spironolactone 25 mg PO DAILY 04/11/17 10/08/17 Aspirin [Aspirin EC] 81 mg PO DAILY 10/08/17 10/08/17 Atorvastatin Calcium 80 mg PO QPM 10/08/17 10/08/17 Furosemide 80 mg PO DAILY 10/08/17 10/08/17 Insulin Aspart [Novolog Flexpen] 0 - 15 units SUBQ TIDWM 10/08/17 10/08/17 Levothyroxine Sodium 250 mcg PO QDAC 10/08/17 10/08/17 Metoprolol Succinate 25 mg PO DAILY 10/08/17 10/08/17 Oxycodone HCl/Acetaminophen 1 each PO Q4H #20 tablet 10/12/17 [Oxycodone-Acetaminophen 5-325] Clindamycin [Cleocin] 300 mg PO Q6H 7 Days #28 capsule 11/09/17 HYDROcod/ACETAM 5/325 [[place] 5/325] 1 - 2 ea PO Q6H PRN #15 tablet 11/09/17 - Allergies Allergies/Adverse Reactions: Allergies Allergy/AdvReac Type Severity Reaction Status Date / Time sulfamethoxazole Allergy Intermediate rash/ Verified 11/18/17 21:13 [From Bactrim] adhesive Allergy Rash Verified 11/18/17 21:13 amoxicillin [Amoxicillin] Allergy unknown Verified 11/18/17 21:13 oxycodone [Oxycodone] AdvReac Intermediate hallucinate, Verified 11/18/17 21:13 vomit promethazine HCl * AdvReac Mild Nausea Verified 11/18/17 21:13 [From Phenergan] - Social History Does the pt smoke?: No Smoking Status: Never smoker Does the pt drink ETOH?: No Does the pt have substance abuse?: No - Immunizations Immunizations are current?: Yes - POLST Patient has POLST: No POLST Status: Full Code PD ED PE NORMAL - General General: Alert and oriented X 3 - Extremities Extremities: No deformity, No calf tenderness / cord - Neuro Neuro: Alert and oriented X 3, No motor deficit, Normal speech Eye Opening: Spontaneous PD ED PE EXPANDED - HEENT HEENT: Dry mucous membranes - Cardiac Cardiac: Tachy - Abdomen Abdomen: Tender to palpation, Generalized/diffuse. No: Rebound, Guarding - Female Female : Other (incision site in left labia, mild surrounding erythema) Results - Vitals Vitals: Vital Signs - 24 hr 11/18/17 11/18/17 11/18/17 21:09 22:06 22:43 Temperature 37.0 C Heart Rate 120 H 111 H 108 H Respiratory 22 12 23 Rate Blood Pressure 159/88 H 164/83 H 166/76 H O2 Saturation 99 98 98 11/18/17 11/19/17 11/19/17 23:24 00:11 01:06 Temperature 36.8 C Heart Rate 112 H 117 H 116 H Respiratory 15 23 18 Rate Blood Pressure 157/63 H 150/60 H 142/65 H O2 Saturation 98 94 98 Oxygen O2 Source Room air - EKG (time done) 115 Rate: Rate (enter#) (115) Rhythm: Paced - Labs Labs: Laboratory Tests 11/18/17 11/18/17 11/18/17 21:11 21:28 21:28 WBC 5.5 RBC 3.75 L Hgb 12.0 Hct 35.9 L MCV 95.9 MCH 32.0 H MCHC 33.4 RDW 13.5 Plt Count 278 MPV 7.1 L Neut # 3.7 Lymph # 1.2 L [place] # 0.4 Eos # 0.0 Baso # 0.1 Absolute Nucleated RBC 0.00 Nucleated RBC % 0.0 VBG pH VBG pCO2 VBG pO2 VBG HCO3 VBG Total CO2 VBG O2 Saturation VBG Base Excess Sodium 131 L Potassium 3.9 Chloride 95 L Carbon Dioxide 23 Anion Gap 13.0 BUN 14 Creatinine 0.8 Estimated GFR (MDRD) 80 L Glucose 333 H POC Whole Bld Glucose 303 H Lactic Acid Calcium 8.0 L Phosphorus 3.0 Magnesium 1.6 L Total Bilirubin 0.3 AST 62 H ALT 38 Alkaline Phosphatase 152 H Troponin I B-Natriuretic Peptide Total Protein 6.6 L Albumin 2.9 L Globulin 3.7 Albumin/Globulin Ratio 0.8 L Lipase 31 HCG, Quant Urine Color Urine Clarity Urine pH Ur Specific [place] Urine Protein Urine Glucose (UA) Urine Ketones Urine Occult Blood Urine Nitrite Urine Bilirubin Urine Urobilinogen Ur Leukocyte Esterase Ur Microscopic Review Urine Culture Comments Serum Ketones NEGATIVE 11/18/17 11/18/17 11/18/17 21:28 21:28 21:28 WBC RBC Hgb Hct MCV MCH MCHC RDW Plt Count MPV Neut # Lymph # [place] # Eos # Baso # Absolute Nucleated RBC Nucleated RBC % VBG pH VBG pCO2 VBG pO2 VBG HCO3 VBG Total CO2 VBG O2 Saturation VBG Base Excess Sodium Potassium Chloride Carbon Dioxide Anion Gap BUN Creatinine Estimated GFR (MDRD) Glucose POC Whole Bld Glucose Lactic Acid 5.4 H* Calcium Phosphorus Magnesium Total Bilirubin AST ALT Alkaline Phosphatase Troponin I < 0.04 B-Natriuretic Peptide 39 Total Protein Albumin Globulin Albumin/Globulin Ratio Lipase HCG, Quant Urine Color Urine Clarity Urine pH Ur Specific [place] Urine Protein Urine Glucose (UA) Urine Ketones Urine Occult Blood Urine Nitrite Urine Bilirubin Urine Urobilinogen Ur Leukocyte Esterase Ur Microscopic Review Urine Culture Comments Serum Ketones 11/18/17 11/18/17 11/18/17 21:28 21:28 22:38 WBC RBC Hgb Hct MCV MCH MCHC RDW Plt Count MPV Neut # Lymph # [place] # Eos # Baso # Absolute Nucleated RBC Nucleated RBC % VBG pH 7.408 VBG pCO2 36.7 L VBG pO2 46.5 VBG HCO3 22.6 L VBG Total CO2 23.8 L VBG O2 Saturation 84.7 H VBG Base Excess -1.6 Sodium Potassium Chloride Carbon Dioxide Anion Gap BUN Creatinine Estimated GFR (MDRD) Glucose POC Whole Bld Glucose Lactic Acid Calcium Phosphorus Magnesium Total Bilirubin AST ALT Alkaline Phosphatase Troponin I B-Natriuretic Peptide Total Protein Albumin Globulin Albumin/Globulin Ratio Lipase HCG, Quant < 0.60 Urine Color YELLOW Urine Clarity CLEAR Urine pH 6.0 Ur Specific [place] 1.020 Urine Protein TRACE Urine Glucose (UA) >=1000 H Urine Ketones NEGATIVE Urine Occult Blood NEGATIVE Urine Nitrite NEGATIVE Urine Bilirubin NEGATIVE Urine Urobilinogen 0.2 (NORMAL) Ur Leukocyte Esterase NEGATIVE Ur Microscopic Review NOT INDICATED Urine Culture Comments NOT INDICATED Serum Ketones 11/18/17 11/19/17 23:03 00:44 WBC RBC Hgb Hct MCV MCH MCHC RDW Plt Count MPV Neut # Lymph # [place] # Eos # Baso # Absolute Nucleated RBC Nucleated RBC % VBG pH VBG pCO2 VBG pO2 VBG HCO3 VBG Total CO2 VBG O2 Saturation VBG Base Excess Sodium Potassium Chloride Carbon Dioxide Anion Gap BUN Creatinine Estimated GFR (MDRD) Glucose POC Whole Bld Glucose Lactic Acid 3.2 H* 0.9 Calcium Phosphorus Magnesium Total Bilirubin AST ALT Alkaline Phosphatase Troponin I B-Natriuretic Peptide Total Protein Albumin Globulin Albumin/Globulin Ratio Lipase HCG, Quant Urine Color Urine Clarity Urine pH Ur Specific [place] Urine Protein Urine Glucose (UA) Urine Ketones Urine Occult Blood Urine Nitrite Urine Bilirubin Urine Urobilinogen Ur Leukocyte Esterase Ur Microscopic Review Urine Culture Comments Serum Ketones PD MEDICAL DECISION MAKING - ED course Complexity details: reviewed old records, reviewed results, re-evaluated patient , considered differential, d/w patient ED course: Patient was seen and examined at bedside. Iv access was gained and labs were drawn. patient was started on a fluid bolus. Patient's labs were unremarkable aside from an elevated lactate. Patient's labs were repeated after a liter and the lactate had decreased significantly. Patient's was treated with a second liter and her lactate was normal. Patient did remain slightly tachycardic which is not abnormal for the patient. patient was at moderate risk for worsening. patient was given detailed follow up instructions. Patient was already on oral antibiotics. Patient was told to call her EP doctor tomorrow and she said she would. patient was stable for outpatient followup Departure - Departure Disposition: 01 Home, Self Care Clinical Impression: Dehydration Condition: Good Instructions: ED Dehydration Follow-Up: Amisha Staton DO [Primary Care Provider] - Tomorrow Comments: Your diagnostics today were within normal limits. The elevated lactic acid has resolved into normal limits. There is no sign of DKA. that being said you are at a high risk of your symptoms returning or worsening. It is important for you to follow up with your heart doctors tomorrow. If your symptoms worsen you should return to the emergency department.
[2017-11-19 01:09] VITALS: BP 142/65
== END 2017-11-19 01:22 | disposition home or self-care (01) ==
LOC: ED 21:05
DX: E86.0 Dehydration (principal); I10 Essential (primary) hypertension; E10.9 Type 1 diabetes mellitus without complications; E03.9 Hypothyroidism, unspecified; Z95.0 Presence of cardiac pacemaker
CPT/HCPCS: 36415; 80053; 81003; 82009; 82803; 83605; 83690; 83735; 83880; 84100; 84484; 84702; 85025; 87040; 93005; 96361; 96374; 96376; 99284; Q0162; 81001; 87086

== ENCOUNTER 2017-11-20 08:15 | Emergency (ER) | payer MEDICAID ==
--- NOTE | 2017-11-20 08:36 | ED Physician Documentation ---
PD HPI NVD - Stated complaint Stated Complaint: PACEMAKER/VOMITING/LOW GLUCOSE - Chief complaint Chief Complaint: General - History obtained from History obtained from: Patient - History of Present Illness Timing - onset: Today Timing - duration: Hours Timing - details: Abrupt onset (she had onset of some nausea and vomiting with some epigastric pain this morning. Unable to eat due to it and noted her blood sugar lower at 78. Here for evaluation. She was going to go to appt for Pacemaker check at Cardiology clinic, and the appt is for early afternoon today. Her father was driving her.), Still present Associated symptoms: Abdominal pain (epigastric), Chest pain (at pacer pouch site, and was getting this checked out today at clinic.), Loss of appetite, Other (nausea and vomited 2-3 times without diarrhea.). No: Near syncope / syncope Contributing factors: Diabetes. No: Sick contact, Bad food, Travel Worsened by: Eating Similar symptoms before: Other (nausea, vomiting and abd pain often.) Review of Systems Constitutional: denies: Fever, Chills, Myalgias Nose: denies: Rhinorrhea / runny nose, Congestion Throat: denies: Sore throat Cardiac: denies: Palpitations, Pedal edema Respiratory: denies: Dyspnea, Cough GI: reports: Abdominal Pain, Nausea, Vomiting. denies: Diarrhea, Hematemesis : denies: Dysuria, Frequency Neurologic: reports: Generalized weakness. 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: Endometriosis, Fibroids, Other : None HEENT: None Psych: Depression, Anxiety, Bipolar disorder, Panic attacks, Post traumatic stress disorder, Claustrophobia Musculoskeletal: Gout, Chronic back pain Derm: Other - Past Surgical History Past Surgical History: Yes General: Cholecystectomy, Appendectomy, Hiatal hernia repair, Colonoscopy, EGD /MERIT SYSTEM DIRECTOR: Oophrectomy, Other Cardiovascular: Pacemaker, Other HEENT: Myringotomy (tubes), Tonsil/Adenoidectomy, Other - Present Medications Home Medications: Ambulatory Orders Medication Instructions Recorded Confirmed Insulin Glargine,Hum.rec.anlog 27 unit SQ DAILY 05/24/13 10/08/17 [Lantus] Lorazepam [Ativan] 1 mg PO QPM PRN 08/29/13 10/08/17 Insulin Glargine,Hum.rec.anlog 32 units SUBQ QPM 09/05/13 10/08/17 [Lantus Solostar] Amitriptyline [Elavil] 75 mg PO QPM 07/03/14 10/08/17 Pantoprazole [Protonix] 40 mg PO QDAC 01/17/15 10/08/17 Venlafaxine ER [Effexor ER] 150 mg PO DAILY 08/27/15 10/08/17 Cyclobenzaprine [Flexeril] 10 mg PO TID PRN #15 tablet 12/01/15 10/08/17 Lisinopril 10 mg PO DAILY 10/02/16 10/08/17 Spironolactone 25 mg PO DAILY 04/11/17 10/08/17 Aspirin [Aspirin EC] 81 mg PO DAILY 10/08/17 10/08/17 Atorvastatin Calcium 80 mg PO QPM 10/08/17 10/08/17 Furosemide 80 mg PO DAILY 10/08/17 10/08/17 Insulin Aspart [Novolog Flexpen] 0 - 15 units SUBQ TIDWM 10/08/17 10/08/17 Levothyroxine Sodium 250 mcg PO QDAC 10/08/17 10/08/17 Metoprolol Succinate 25 mg PO DAILY 10/08/17 10/08/17 Oxycodone HCl/Acetaminophen 1 each PO Q4H #20 tablet 10/12/17 [Oxycodone-Acetaminophen 5-325] Clindamycin [Cleocin] 300 mg PO Q6H 7 Days #28 capsule 11/09/17 HYDROcod/ACETAM 5/325 [[place] 5/325] 1 - 2 ea PO Q6H PRN #15 tablet 11/09/17 Ondansetron Odt [Zofran] 4 mg TL Q6H PRN #20 tablet 11/20/17 - Allergies Allergies/Adverse Reactions: Allergies Allergy/AdvReac Type Severity Reaction Status Date / Time sulfamethoxazole Allergy Intermediate rash/ Verified 11/20/17 08:33 [From Bactrim] adhesive Allergy Rash Verified 11/20/17 08:33 amoxicillin [Amoxicillin] Allergy unknown Verified 11/20/17 08:33 oxycodone [Oxycodone] AdvReac Intermediate hallucinate, Verified 11/20/17 08:33 vomit promethazine HCl * AdvReac Mild Nausea Verified 11/20/17 08:33 [From Phenergan] - Social History Does the pt smoke?: No Smoking Status: Never smoker Does the pt drink ETOH?: No Does the pt have substance abuse?: No - Immunizations Immunizations are current?: Yes - POLST Patient has POLST: No POLST Status: Full Code PD ED PE NORMAL - Vitals Vital signs reviewed: Yes - General General: Alert and oriented X 3, Well developed/nourished, Other (appears uncomfortable, and feeling nauseated. ) - HEENT HEENT: Ears normal, Moist mucous membranes, Pharynx benign - Neck Neck: Supple, no meningeal sign, No adenopathy - Cardiac Cardiac: RRR (tachycardic), No murmur - Respiratory Respiratory: Clear bilaterally, Other (left chestwall with pacer palpable. No redness, warmth, sores, nor drainage over the site. ) - Abdomen Abdomen: Normal bowel sounds, Soft, Non distended, No organomegaly, Other (mild upper abd tender without guarding nor percussion tenderness. ) - Derm Derm: Normal color, Warm and dry, No rash - Extremities Extremities: No tenderness to palpate, Normal ROM s pain, No edema, No calf tenderness / cord - Neuro Neuro: Alert and oriented X 3, No motor deficit, Normal speech Results - Vitals Vitals: Vital Signs - 24 hr 11/20/17 11/20/17 08:28 10:31 Temperature 36.6 C Heart Rate 107 H 103 H Respiratory 16 16 Rate Blood Pressure 168/77 H 158/91 H O2 Saturation 100 100 Oxygen O2 Source Room air - Labs Labs: Laboratory Tests 11/20/17 08:48 POC Whole Bld Glucose 88 PD MEDICAL DECISION MAKING - ED course Complexity details: re-evaluated patient (feeling improved pain and no nausea. Able to drink fluids and eat snack. She has appt with Cardiology/Pacer clinic this afternoon, but is not feeling like driving that far due to current pain. She called and talked with the clinic and she says that they said we could try to make other arrangements. However it makes the most sense for her to follow with the Clinic that placed it for this outpatient appt. ), considered differential (she had pain and vomiting, which she felt was from the pain. Sugar somewhat low, not high, which would be more common for her. She is difficult IV start and does not seem dehydrated. Talked with her about PO/IM meds. Gave Morphine and Zofran IM with good improvement. She is able to take fluids and had some crackers. She is discharged in time that she could make her appt at this afternoon. ), d/w patient Departure - Departure Disposition: 01 Home, Self Care Clinical Impression: Chest wall pain Nausea & vomiting Qualifiers: Vomiting type: unspecified Vomiting Intractability: non-intractable Qualified Code(s): R11.2 - Nausea with vomiting, unspecified Condition: Stable Record reviewed to determine appropriate education?: Yes Follow-Up: Amisha Staton DO [Primary Care Provider] - Prescriptions: Ondansetron Odt [Zofran] 4 mg TL Q6H PRN #20 tablet PRN Reason: Nausea / Vomiting Comments: Small frequent fluids through the day. Regular diet. Ondansetron (Zofran) if needed for nausea. Continue your other usual medications. Would be good for you to have her pacer checked as planned at the . I presume you will need to call and reschedule your appointment with them. Discharge Date/Time: 11/20/17 10:31
[2017-11-20] MEDS ORDERED: MORPHINE 10 MG/ML VIAL IM STA ×2 (08:50→10:13)
[2017-11-20] MEDS ORDERED: HALOPERIDOL 5 MG/ML VIAL IM STA (08:50)
[2017-11-20] MEDS ORDERED: ONDANSETRON ODT 4 MG TABLET TL STA (08:50)
[2017-11-20 10:31] VITALS: BP 158/91
== END 2017-11-20 10:31 | disposition home or self-care (01) ==
LOC: ED 08:15
DX: R07.89 Other chest pain (principal); R11.2 Nausea with vomiting, unspecified; I10 Essential (primary) hypertension; E10.42 Type 1 diabetes mellitus with diabetic polyneuropathy; Z95.0 Presence of cardiac pacemaker; Z79.4 Long term (current) use of insulin; Z79.82 Long term (current) use of aspirin
CPT/HCPCS: 93005; 96372; 99283; Q0162

== ENCOUNTER 2017-12-28 13:47 | Observation (INO) | payer MEDICAID ==
[2017-12-28] MEDS ORDERED: SODIUM CHLORIDE 0.9% 1,000 ML IV ONE (14:06)
[2017-12-28] MEDS ORDERED: INSULIN REGULAR HUMAN 100 UNIT/1 ML 10 ML MDV IVP STA ×2 (14:06→15:06)
[2017-12-28] MEDS ORDERED: ONDANSETRON 4 MG/2 ML VIAL IVP STA (14:06)
[2017-12-28] MEDS ORDERED: HYDROmorphone 2 MG/ML VIAL IVP STA ×2 (14:06→16:29)
--- NOTE | 2017-12-28 14:09 | ED Physician Documentation ---
PD HPI CHEST PAIN - Stated complaint Stated Complaint: ABD PX/HIGH GLUCOSE/DIZZY - Chief complaint Chief Complaint: Abd Pain - History obtained from History obtained from: Patient - History of Present Illness Timing - onset: Other (37-year-old woman with long standing diabetes, type I who presents with 2 complaints, she has had pelvic pain on the left side for 2 days associated with spotting today. Her last menses was 2 weeks ago. She has no possibility of she says. She also notes that her blood sugars are high today, in the 400s. She took her Lantus, 27 units this morning did not take any of her short acting insulin because she did not eat. She feels nauseous but has not vomited.) Review of Systems Constitutional: reports: Fatigue. denies: Fever, Chills Nose: denies: Rhinorrhea / runny nose, Congestion GI: reports: Abdominal Pain, Nausea. 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: Endometriosis, Fibroids, Other : None HEENT: None Psych: Depression, Anxiety, Bipolar disorder, Panic attacks, Post traumatic stress disorder, Claustrophobia Musculoskeletal: Gout, Chronic back pain Derm: Other - Past Surgical History Past Surgical History: Yes General: Cholecystectomy, Appendectomy, Hiatal hernia repair, Colonoscopy, EGD /EQUITY SALES ASSISTANT: Oophrectomy, Other Cardiovascular: Pacemaker, Other HEENT: Myringotomy (tubes), Tonsil/Adenoidectomy, Other - Present Medications Home Medications: Ambulatory Orders Medication Instructions Recorded Confirmed Insulin Glargine,Hum.rec.anlog 27 unit SQ DAILY 05/24/13 10/08/17 [Lantus] Lorazepam [Ativan] 1 mg PO QPM PRN 08/29/13 12/28/17 Insulin Glargine,Hum.rec.anlog 32 units SUBQ QPM 09/05/13 10/08/17 [Lantus Solostar] Amitriptyline [Elavil] 50 mg PO QPM 07/03/14 12/28/17 Pantoprazole [Protonix] 40 mg PO QDAC 01/17/15 10/08/17 Venlafaxine ER [Effexor ER] 150 mg PO DAILY 08/27/15 12/28/17 Cyclobenzaprine [Flexeril] 10 mg PO TID PRN #15 tablet 12/01/15 12/28/17 Lisinopril 10 mg PO DAILY 10/02/16 12/28/17 Spironolactone 25 mg PO DAILY 04/11/17 12/28/17 Aspirin [Aspirin EC] 81 mg PO DAILY 10/08/17 10/08/17 Atorvastatin Calcium 80 mg PO QPM 10/08/17 12/28/17 Furosemide 80 mg PO DAILY 10/08/17 12/28/17 Insulin Aspart [Novolog Flexpen] 0 - 15 units SUBQ TIDWM 10/08/17 10/08/17 Levothyroxine Sodium 250 mcg PO QDAC 10/08/17 12/28/17 Metoprolol Succinate 25 mg PO DAILY 10/08/17 12/28/17 Oxycodone HCl/Acetaminophen 1 each PO Q4H #20 tablet 10/12/17 [Oxycodone-Acetaminophen 5-325] Clindamycin [Cleocin] 300 mg PO Q6H 7 Days #28 capsule 11/09/17 HYDROcod/ACETAM 5/325 [[place] 5/325] 1 - 2 ea PO Q6H PRN #15 tablet 11/09/17 Ondansetron Odt [Zofran] 4 mg TL Q6H PRN #20 tablet 11/20/17 - Allergies Allergies/Adverse Reactions: Allergies Allergy/AdvReac Type Severity Reaction Status Date / Time sulfamethoxazole Allergy Intermediate rash/ Verified 12/28/17 13:59 [From Bactrim] adhesive Allergy Rash Verified 12/28/17 13:59 amoxicillin [Amoxicillin] Allergy unknown Verified 12/28/17 13:59 oxycodone [Oxycodone] AdvReac Intermediate hallucinate, Verified 12/28/17 13:59 vomit promethazine HCl * AdvReac Mild Nausea Verified 12/28/17 13:59 [From Phenergan] - Social History Does the pt smoke?: No Smoking Status: Never smoker Does the pt drink ETOH?: No Does the pt have substance abuse?: No - Immunizations Immunizations are current?: Yes - POLST Patient has POLST: No POLST Status: Full Code PD ED PE NORMAL - Vitals Vital signs reviewed: Yes - General General: Alert and oriented X 3, No acute distress - HEENT HEENT: PERRL, EOMI - Neck Neck: Supple, no meningeal sign, No bony TTP - Cardiac Cardiac: RRR, No murmur - Respiratory Respiratory: No respiratory distress, Clear bilaterally - Abdomen Abdomen: Normal bowel sounds, Soft, Other (Mild left-sided abdominal tenderness without surgical signs) - Back Back: No CVA TTP, No spinal TTP - Derm Derm: Normal color, Warm and dry - Extremities Extremities: No edema, No calf tenderness / cord - Neuro Neuro: Alert and oriented X 3, Normal speech Results - Vitals Vitals: Vital Signs - 24 hr 12/28/17 12/28/17 13:56 16:27 Temperature 36.5 C Heart Rate 126 H 120 H Respiratory 20 16 Rate Blood Pressure 144/86 H 111/68 O2 Saturation 98 99 Oxygen O2 Source Room air - Labs Labs: Laboratory Tests 12/28/17 12/28/17 12/28/17 14:12 14:35 14:35 WBC 7.1 RBC 3.87 L Hgb 12.8 Hct 38.0 MCV 98.2 MCH 33.0 H MCHC 33.6 RDW 13.3 Plt Count 270 MPV 7.9 Neut # (Auto) 5.5 Lymph # (Auto) 1.0 L [place] # (Auto) 0.5 Eos # (Auto) 0.0 Baso # (Auto) 0.1 Absolute Nucleated RBC 0.00 Nucleated RBC % 0.0 VBG pH 7.332 VBG pCO2 27.1 L VBG pO2 93.0 H VBG HCO3 14.0 L VBG Total CO2 14.9 L VBG O2 Saturation 96.8 H VBG Base Excess -10.3 L Sodium Potassium Chloride Carbon Dioxide Anion Gap BUN Creatinine Estimated GFR (MDRD) Glucose POC Whole Bld Glucose 492 H Calcium Total Bilirubin AST ALT Alkaline Phosphatase Total Protein Albumin Globulin Albumin/Globulin Ratio Lipase Ur Specific [place] Urine HCG, Qual Serum Ketones 12/28/17 12/28/17 12/28/17 14:57 15:03 15:33 WBC RBC Hgb Hct MCV MCH MCHC RDW Plt Count MPV Neut # (Auto) Lymph # (Auto) [place] # (Auto) Eos # (Auto) Baso # (Auto) Absolute Nucleated RBC Nucleated RBC % VBG pH VBG pCO2 VBG pO2 VBG HCO3 VBG Total CO2 VBG O2 Saturation VBG Base Excess Sodium 128 L Potassium 3.4 L Chloride 93 L Carbon Dioxide 14 L Anion Gap 21.0 H BUN 15 Creatinine 1.0 Estimated GFR (MDRD) 62 L Glucose 368 H POC Whole Bld Glucose 508 H* Calcium 8.5 Total Bilirubin 1.8 H AST 24 ALT 13 Alkaline Phosphatase 161 H Total Protein 7.3 Albumin 3.2 Globulin 4.1 Albumin/Globulin Ratio 0.8 L Lipase 17 L Ur Specific [place] 1.020 Urine HCG, Qual NEGATIVE Serum Ketones MODERATE H 12/28/17 15:38 WBC RBC Hgb Hct MCV MCH MCHC RDW Plt Count MPV Neut # (Auto) Lymph # (Auto) [place] # (Auto) Eos # (Auto) Baso # (Auto) Absolute Nucleated RBC Nucleated RBC % VBG pH VBG pCO2 VBG pO2 VBG HCO3 VBG Total CO2 VBG O2 Saturation VBG Base Excess Sodium Potassium Chloride Carbon Dioxide Anion Gap BUN Creatinine Estimated GFR (MDRD) Glucose POC Whole Bld Glucose 371 H Calcium Total Bilirubin AST ALT Alkaline Phosphatase Total Protein Albumin Globulin Albumin/Globulin Ratio Lipase Ur Specific [place] Urine HCG, Qual Serum Ketones Procedures - General procedure General procedure: She is difficult for IV access, I tried in both arms using ultrasound guidance and failed but I was able place a 22-gauge IV in the left external jugular vein which latoya and flushed easily. PD MEDICAL DECISION MAKING - ED course ED course: This is a 37-year-old woman with long-standing diabetes and frequent episodes of DKA presents with a concern for same and left pelvic pain. She is found to have fibroid uterus and a small left ovarian cyst and evidence of mild to acidosis but a pretty low bicarbonate. She was given divided doses of regular insulin IV push during the workup and this was followed by a drip and I called the hospitalist for admission at 4:19 PM Departure - Departure Disposition: ED Place in Observation Clinical Impression: Chronic female pelvic pain DKA (diabetic ketoacidoses) Qualifiers: Diabetes mellitus type: type 1 Diabetes mellitus complication detail: without coma Qualified Code(s): E10.10 - Type 1 diabetes mellitus with ketoacidosis without coma Condition: Serious
[2017-12-28 14:46] LABS: BASOPHILS # (AUTO) 0.1 10^3/uL (0.0-0.1); BASOPHILS % (AUTO) 1.1 %; EOSINOPHILS % (AUTO) 0.5 %; HGB - HEMOGLOBIN 12.8 g/dL (12.0-16.0); LYMPHOCYTES % (AUTO) 14.5 %; MEAN CORPUSCULAR HGB CONC 33.6 g/dL (32.0-36.0); MEAN CORPUSCULAR VOLUME 98.2 fL (81.0-99.0); MEAN PLATELET VOLUME 7.9 fL (7.9-10.8); MONOCYTES # (AUTO) 0.5 10^3/uL (0.0-1.0); MONOCYTES % (AUTO) 6.6 %; NEUTROPHILS # (AUTO) 5.5 10^3/uL (1.5-6.6); NEUTROPHILS % (AUTO) 77.3 %; PLT - PLATELET COUNT 270 10^3/uL (130-450); RED BLOOD COUNT 3.87 10^6/uL (4.20-5.40); RED CELL DISTRIBUTION WIDTH 13.3 % (12.0-15.0); WHITE BLOOD COUNT 7.1 x10^3/uL (4.8-10.8)
[2017-12-28 14:47] LABS: VBG PCO2 27.1 mmHg (41-51); VBG PH 7.332 (7.31-7.41)
[2017-12-28 14:48] LABS: VBG BASE EXCESS -10.3 mmol/L (-2 - +2); VBG TOTAL CO2 14.9 mmol/L (24-29)
[2017-12-28 15:15] LABS: HCG UR QUAL NEGATIVE
[2017-12-28 15:48] LABS: KETONES, SERUM (ACETEST) MODERATE (NEGATIVE)
[2017-12-28 15:56] LABS: ALBUMIN 3.2 g/dL (3.2-5.5); ALBUMIN/GLOBULIN RATIO 0.8 (1.0-2.2); ALKALINE PHOSPHATASE 161 IU/L (42-121); ALT ALANINE AMINOTRANSFERASE 13 IU/L (10-60); AST ASPARTATE AMINOTRANSFERASE 24 IU/L (10-42); BILIRUBIN,TOTAL 1.8 mg/dL (0.2-1.0); BUN - BLOOD UREA NITROGEN 15 mg/dL (6-20); CALCIUM 8.5 mg/dL (8.5-10.3); CARBON DIOXIDE - CO2 14 mmol/L (21-32); CHLORIDE 93 mmol/L (101-111); GFR - MDRD 62 (>89); GLUCOSE 368 mg/dL (70-100); LIPASE 17 U/L (22-51); SODIUM 128 mmol/L (135-145); TOTAL PROTEIN 7.3 g/dL (6.7-8.2)
[2017-12-28] MEDS ORDERED: INSULIN REGULAR HUMAN 100 UNIT in SODIUM CHLORIDE 0.9% 100ML 99 ML IV STA (16:15)
[2017-12-28] MEDS ORDERED: NS W/40 MEQ KCL 1,000 ML IV STA (16:18)
[2017-12-28] MEDS ORDERED: KETOROLAC 60 MG/2 ML VIAL IVP STA (16:29)
[2017-12-28] MEDS ORDERED: NS W/40 MEQ KCL 1,000 ML IV SCH (17:00)
[2017-12-28] MEDS ORDERED: ONDANSETRON 4 MG/2 ML VIAL IVP PRN (17:26)
[2017-12-28] MEDS ORDERED: ACETAMINOPHEN 325 MG TABLET PO PRN (17:26)
[2017-12-28] MEDS ORDERED: oxyCODONE 5 MG TABLET PO PRN (17:26)
[2017-12-28] MEDS ORDERED: ONDANSETRON ODT 4 MG TABLET TL PRN (17:26)
[2017-12-28] MEDS ORDERED: INSULIN REGULAR HUMAN 100 UNIT in SODIUM CHLORIDE 0.9% 100ML 99 ML IV SCH (17:30)
[2017-12-28 17:55] LABS: VBG BASE EXCESS -3.7 mmol/L (-2 - +2); VBG PCO2 35.5 mmHg (41-51); VBG PH 7.384 (7.31-7.41); VBG PO2 50.4 mmHg (25-47); VBG TOTAL CO2 21.8 mmol/L (24-29)
[2017-12-28 18:15] LABS: ABG BASE EXCESS -3.1 mmol/L (-2.0-3.0); ABG HCO3 21.3 mmol/L (22.0-26.0); ABG OXYGEN SATURATION 97 % (94-98); ABG PCO2 36 mmHg (34-45); ABG PH 7.39 (7.35-7.45); ABG PO2 89 mmHg (80-100); ABG TCO2 22.5 MMOL/L (21.0-29.0)
--- NOTE | 2017-12-28 19:27 | Ultrasound Report ---
PELVIC ULTRASOUND: 12/28/2017 HISTORY: Left pelvic pain. COMPARISON: CT 10/08/2017, pelvic ultrasound 08/17/2017. TECHNIQUE: Realtime scanning by the produce department manager with saved static images reviewed. Transabdominal approach for Global Assessment and endovaginal scanning for detailed assessment of the ovaries and adnexal structures. FINDINGS: Uterus anteverted in configuration, 8.6 x 4.5 x 6.9 cm, volume 140 mL. Scattered uterine fibroids are noted, the dominant anterior superior intramural 3.1 x 2.5 x 3.6 cm, similar to previous. Endometrial echo: 10.4 mm. Right ovary: Surgically absent. No adnexal masses. Left ovary: 4.5 x 2.8 x 3.2 cm, volume 21 mL. Small follicle present. Normal echotexture and blood flow. Free fluid: None. IMPRESSION: MYOMATOUS CHANGES OF THE UTERUS. STATUS POST RIGHT OOPHORECTOMY. UNREMARKABLE APPEARANCE OF THE LEFT OVARY. OVERALL, THE EXAMINATION IS SIMILAR TO 2017. TD: 12/28/2017 16:14 MTDTracey
[2017-12-28] MEDS: MORPHINE 2 MG/ML SYRINGE IVP PRN ×2 (19:33→22:32)
[2017-12-28] MEDS: SODIUM CHLORIDE FLUSH 0.9% 10 ML SYRINGE IVP PRN (19:34)
[2017-12-28] MEDS: INSULIN GLARGINE 300 UNIT/3 ML PEN SUBQ SCH ×2 (19:37→21:42)
[2017-12-28 19:49] LABS: HB2 TOTAL 14.6 g/dL; HEMOGLOBIN A1C 1.52 g/dL; HEMOGLOBIN A1C % 11.7 % (4.6-6.2)
[2017-12-28 20:08] LABS: KETONES, SERUM (ACETEST) SMALL (NEGATIVE)
[2017-12-28 20:12] LABS: BUN - BLOOD UREA NITROGEN 16 mg/dL (6-20); CALCIUM 8.2 mg/dL (8.5-10.3); CARBON DIOXIDE - CO2 23 mmol/L (21-32); CHLORIDE 101 mmol/L (101-111); CREATININE 0.6 mg/dL (0.4-1.0); GFR - MDRD 111 (>89); GLUCOSE 107 mg/dL (70-100); SODIUM 132 mmol/L (135-145)
[2017-12-28 22:11] LABS: BUN - BLOOD UREA NITROGEN 17 mg/dL (6-20); CALCIUM 8.2 mg/dL (8.5-10.3); CARBON DIOXIDE - CO2 24 mmol/L (21-32); CHLORIDE 99 mmol/L (101-111); GFR - MDRD 62 (>89); GLUCOSE 199 mg/dL (70-100); KETONES, SERUM (ACETEST) SMALL (NEGATIVE); SODIUM 132 mmol/L (135-145)
[2017-12-28] MEDS ORDERED: D5.45NS W/20 MEQ KCL 1,000 ML IV SCH (23:00)
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
[2017-12-29] MEDS: SODIUM CHLORIDE FLUSH 0.9% 10 ML SYRINGE IVP SCH ×3 (02:35→15:06)
[2017-12-29] MEDS: MORPHINE 2 MG/ML SYRINGE IVP PRN ×6 (04:38→20:52)
[2017-12-29 05:30] LABS: BASOPHILS # (AUTO) 0.1 10^3/uL (0.0-0.1); BASOPHILS % (AUTO) 0.9 %; EOSINOPHILS # (AUTO) 0.1 10^3/uL (0.0-0.7); EOSINOPHILS % (AUTO) 0.9 %; HGB - HEMOGLOBIN 11.3 g/dL (12.0-16.0); LYMPHOCYTES # (AUTO) 0.9 10^3/uL (1.5-3.5); LYMPHOCYTES % (AUTO) 15.1 %; MEAN CORPUSCULAR HEMOGLOBIN 32.1 pg (27.0-31.0); MEAN CORPUSCULAR HGB CONC 32.7 g/dL (32.0-36.0); MEAN CORPUSCULAR VOLUME 98.1 fL (81.0-99.0); MEAN PLATELET VOLUME 7.2 fL (7.9-10.8); MONOCYTES # (AUTO) 0.7 10^3/uL (0.0-1.0); MONOCYTES % (AUTO) 11.3 %; NEUTROPHILS # (AUTO) 4.4 10^3/uL (1.5-6.6); NEUTROPHILS % (AUTO) 71.8 %; PLT - PLATELET COUNT 227 10^3/uL (130-450); RED BLOOD COUNT 3.53 10^6/uL (4.20-5.40); RED CELL DISTRIBUTION WIDTH 13.4 % (12.0-15.0); WHITE BLOOD COUNT 6.2 x10^3/uL (4.8-10.8)
[2017-12-29 05:43] LABS: CALCIUM 7.9 mg/dL (8.5-10.3); CREATININE 0.8 mg/dL (0.4-1.0)
[2017-12-29] MEDS: ENOXAPARIN 40 MG/0.4 ML SYRINGE SUBQ SCH (08:12)
[2017-12-29] MEDS: INSULIN ASPART 300 UNIT/3 ML PEN SUBQ SCH ×4 (09:23→20:44)
[2017-12-29] MEDS: SODIUM CHLORIDE FLUSH 0.9% 10 ML SYRINGE IVP PRN ×2 (11:57→18:12)
[2017-12-29] MEDS ORDERED: INSULIN ASPART 300 UNIT/3 ML PEN SUBQ SCH (12:00)
[2017-12-29 19:48] LABS: HB2 TOTAL 12.1 g/dL; HEMOGLOBIN A1C 1.27 g/dL; HEMOGLOBIN A1C % 11.8 % (4.6-6.2)
[2017-12-29] MEDS: INSULIN GLARGINE 300 UNIT/3 ML PEN SUBQ SCH (20:45)
--- NOTE | 2017-12-29 20:49 | PROVIDER PROGRESS NOTE ---
Subjective - Prog Note Date Prog Note Date: 12/29/17 Prog Note Time: 17:00 - Subjective Pt reports feeling: Improved (The patient still complains of abdominal pain but the pain is improved and she feels better overall.) Current Medications - Current Medications Current Medications: Acetaminophen, Lovenox, insulin,Toradol, morphine,Zofran, oxycodone, sodium chloride Objective - Vital Signs/Intake & Output Reviewed Vital Signs: Yes Vital Signs: Vital Signs x48h Pulse Resp BP Pulse Ox 12/29/17 18:52 106 H 19 146/79 H 100 12/29/17 18:00 101 H 23 137/69 H 100 12/29/17 17:00 104 H 22 132/64 H 100 12/29/17 16:00 108 H 18 143/78 H 97 12/29/17 15:00 105 H 18 143/76 H 96 12/29/17 14:00 107 H 20 136/74 H 98 12/29/17 13:00 108 H 18 158/71 H 96 Intake & Output: Intake & Output 12/26/17 12/27/17 12/28/17 12/29/17 23:59 23:59 23:59 23:59 Intake Total 819.615 6552.217 Output Total 2850 Balance 141.217 3781.217 - Objective General Appearance: positive: No acute distress, Alert Eyes Bilateral: positive: Normal inspection, PERRL, EOMI, No lid inflammation, Conjunctivae nml, No scleral icterus ENT: positive: ENT inspection nml, Pharynx nml, No signs of dehydration, Purulent nasal drainage Neck: positive: Nml inspection, No JVD, Trachea midline. negative: Thyromegaly Respiratory: positive: Chest non-tender, No respiratory distress, Breath sounds nml. negative: Wheezes, Rales, Rhonchi Cardiovascular: positive: Regular rate & rhythm, No murmur, No gallop Abdomen: positive: Non-tender, No organomegaly, Nml bowel sounds, No distention. negative: Guarding, Rebound Back: positive: Nml inspection. negative: CVA tenderness (R), CVA tenderness (L ) Skin: positive: Color nml, No rash, Warm, Dry. negative: Cyanosis Extremities: positive: Non-tender, Full ROM, Nml appearance, No pedal edema Neurologic/Psychiatric: positive: Oriented x3, CN's nml (2-12), Motor nml, Sensation nml, Mood/affect nml - Lab Results Fish Bones: 12/29/17 04:50 12/29/17 04:50 Other Labs: Lab Results x24hrs 12/29/17 12/29/17 12/29/17 Range/Units 20:39 16:34 11:33 WBC (4.8-10.8) x10^3/uL RBC (4.20-5.40) 10^6/uL Hgb (12.0-16.0) g/dL Hct (37.0-47.0) % MCV (81.0-99.0) fL MCH (27.0-31.0) pg MCHC (32.0-36.0) g/dL RDW (12.0-15.0) % Plt Count (130-450) 10^3/uL MPV (7.9-10.8) fL Neut # (Auto) (1.5-6.6) 10^3/uL Lymph # (Auto) (1.5-3.5) 10^3/uL [place] # (Auto) (0.0-1.0) 10^3/uL Eos # (Auto) (0.0-0.7) 10^3/uL Baso # (Auto) (0.0-0.1) 10^3/uL Absolute Nucleated RBC x10^3/uL Nucleated RBC % /100WBC Sodium (135-145) mmol/L Potassium (3.5-5.0) mmol/L Chloride (101-111) mmol/L Carbon Dioxide (21-32) mmol/L Anion Gap (6-13) BUN (6-20) mg/dL Creatinine (0.4-1.0) mg/dL Estimated GFR (MDRD) (>89) Glucose (70-100) mg/dL POC Whole Bld Glucose 322 H 339 H 229 H (70 - 100) mg/dL Glycated Hemoglobin (4.6-6.2) % Estim Average Glucose (70-100) Calcium (8.5-10.3) mg/dL Phosphorus (2.5-4.6) mg/dL Magnesium (1.7-2.8) mg/dL Albumin (3.2-5.5) g/dL Serum Ketones (NEGATIVE) 12/29/17 12/29/17 12/29/17 Range/Units 07:29 04:50 04:50 WBC (4.8-10.8) x10^3/uL RBC (4.20-5.40) 10^6/uL Hgb (12.0-16.0) g/dL Hct (37.0-47.0) % MCV (81.0-99.0) fL MCH (27.0-31.0) pg MCHC (32.0-36.0) g/dL RDW (12.0-15.0) % Plt Count (130-450) 10^3/uL MPV (7.9-10.8) fL Neut # (Auto) (1.5-6.6) 10^3/uL Lymph # (Auto) (1.5-3.5) 10^3/uL [place] # (Auto) (0.0-1.0) 10^3/uL Eos # (Auto) (0.0-0.7) 10^3/uL Baso # (Auto) (0.0-0.1) 10^3/uL Absolute Nucleated RBC x10^3/uL Nucleated RBC % /100WBC Sodium (135-145) mmol/L Potassium (3.5-5.0) mmol/L Chloride (101-111) mmol/L Carbon Dioxide (21-32) mmol/L Anion Gap (6-13) BUN (6-20) mg/dL Creatinine (0.4-1.0) mg/dL Estimated GFR (MDRD) (>89) Glucose (70-100) mg/dL POC Whole Bld Glucose 416 H (70 - 100) mg/dL Glycated Hemoglobin 11.8 H (4.6-6.2) % Estim Average Glucose 292 H (70-100) Calcium (8.5-10.3) mg/dL Phosphorus (2.5-4.6) mg/dL Magnesium (1.7-2.8) mg/dL Albumin 2.6 L (3.2-5.5) g/dL Serum Ketones (NEGATIVE) 12/29/17 12/29/17 12/29/17 Range/Units 04:50 04:50 02:15 WBC 6.2 (4.8-10.8) x10^3/uL RBC 3.53 L (4.20-5.40) 10^6/uL Hgb 11.3 L (12.0-16.0) g/dL Hct 34.6 L (37.0-47.0) % MCV 98.1 (81.0-99.0) fL MCH 32.1 H (27.0-31.0) pg MCHC 32.7 (32.0-36.0) g/dL RDW 13.4 (12.0-15.0) % Plt Count 227 (130-450) 10^3/uL MPV 7.2 L (7.9-10.8) fL Neut # (Auto) 4.4 (1.5-6.6) 10^3/uL Lymph # (Auto) 0.9 L (1.5-3.5) 10^3/uL [place] # (Auto) 0.7 (0.0-1.0) 10^3/uL Eos # (Auto) 0.1 (0.0-0.7) 10^3/uL Baso # (Auto) 0.1 (0.0-0.1) 10^3/uL Absolute Nucleated RBC 0.00 x10^3/uL Nucleated RBC % 0.1 /100WBC Sodium 129 L (135-145) mmol/L Potassium 4.3 (3.5-5.0) mmol/L Chloride 97 L (101-111) mmol/L Carbon Dioxide 23 (21-32) mmol/L Anion Gap 9.0 (6-13) BUN 16 (6-20) mg/dL Creatinine 0.8 (0.4-1.0) mg/dL Estimated GFR (MDRD) 80 L (>89) Glucose 401 H (70-100) mg/dL POC Whole Bld Glucose 367 H (70 - 100) mg/dL Glycated Hemoglobin (4.6-6.2) % Estim Average Glucose (70-100) Calcium 7.9 L (8.5-10.3) mg/dL Phosphorus 3.0 (2.5-4.6) mg/dL Magnesium 2.0 (1.7-2.8) mg/dL Albumin (3.2-5.5) g/dL Serum Ketones (NEGATIVE) 12/28/17 12/28/17 12/28/17 Range/Units 23:47 22:51 21:54 WBC (4.8-10.8) x10^3/uL RBC (4.20-5.40) 10^6/uL Hgb (12.0-16.0) g/dL Hct (37.0-47.0) % MCV (81.0-99.0) fL MCH (27.0-31.0) pg MCHC (32.0-36.0) g/dL RDW (12.0-15.0) % Plt Count (130-450) 10^3/uL MPV (7.9-10.8) fL Neut # (Auto) (1.5-6.6) 10^3/uL Lymph # (Auto) (1.5-3.5) 10^3/uL [place] # (Auto) (0.0-1.0) 10^3/uL Eos # (Auto) (0.0-0.7) 10^3/uL Baso # (Auto) (0.0-0.1) 10^3/uL Absolute Nucleated RBC x10^3/uL Nucleated RBC % /100WBC Sodium 132 L (135-145) mmol/L Potassium 4.6 (3.5-5.0) mmol/L Chloride 99 L (101-111) mmol/L Carbon Dioxide 24 (21-32) mmol/L Anion Gap 9.0 (6-13) BUN 17 (6-20) mg/dL Creatinine 1.0 (0.4-1.0) mg/dL Estimated GFR (MDRD) 62 L (>89) Glucose 199 H (70-100) mg/dL POC Whole Bld Glucose 282 H (70 - 100) mg/dL Glycated Hemoglobin (4.6-6.2) % Estim Average Glucose (70-100) Calcium 8.2 L (8.5-10.3) mg/dL Phosphorus (2.5-4.6) mg/dL Magnesium (1.7-2.8) mg/dL Albumin (3.2-5.5) g/dL Serum Ketones SMALL H SMALL H (NEGATIVE) 12/28/17 12/28/17 12/28/17 Range/Units 21:41 21:21 21:06 WBC (4.8-10.8) x10^3/uL RBC (4.20-5.40) 10^6/uL Hgb (12.0-16.0) g/dL Hct (37.0-47.0) % MCV (81.0-99.0) fL MCH (27.0-31.0) pg MCHC (32.0-36.0) g/dL RDW (12.0-15.0) % Plt Count (130-450) 10^3/uL MPV (7.9-10.8) fL Neut # (Auto) (1.5-6.6) 10^3/uL Lymph # (Auto) (1.5-3.5) 10^3/uL [place] # (Auto) (0.0-1.0) 10^3/uL Eos # (Auto) (0.0-0.7) 10^3/uL Baso # (Auto) (0.0-0.1) 10^3/uL Absolute Nucleated RBC x10^3/uL Nucleated RBC % /100WBC Sodium (135-145) mmol/L Potassium (3.5-5.0) mmol/L Chloride (101-111) mmol/L Carbon Dioxide (21-32) mmol/L Anion Gap (6-13) BUN (6-20) mg/dL Creatinine (0.4-1.0) mg/dL Estimated GFR (MDRD) (>89) Glucose (70-100) mg/dL POC Whole Bld Glucose 102 H 55 L* 60 L* (70 - 100) mg/dL Glycated Hemoglobin (4.6-6.2) % Estim Average Glucose (70-100) Calcium (8.5-10.3) mg/dL Phosphorus (2.5-4.6) mg/dL Magnesium (1.7-2.8) mg/dL Albumin (3.2-5.5) g/dL Serum Ketones (NEGATIVE) ABX Reporting Has patient been on IV antibiotics over the past 48 hours?: No Assessment/Plan - Problem List (1) LLQ abdominal pain Impression: Likely secondary to an ovarian cyst as PID has been ruled out, Patient is not showing any signs other Signs related to infection such as fever. (2) Ovarian cyst Impression: Will monitor,Pain appears to be well-managed at this time.Patient may be able to be discharge tomorrow if her pain isUnder control.We will consider starting the patient on control medicineTo prevent any further ovarian cysts. Qualifiers: Laterality: left Qualified Code(s): N83.202 - Unspecified ovarian cyst, left side (3) DKA (diabetic ketoacidoses) Impression: Resolved. Qualifiers: Diabetes mellitus type: type 1 Diabetes mellitus complication detail: without coma Qualified Code(s): E10.10 - Type 1 diabetes mellitus with ketoacidosis without coma
[2017-12-30] MEDS: SODIUM CHLORIDE FLUSH 0.9% 10 ML SYRINGE IVP SCH ×3 (00:08→08:49)
[2017-12-30] MEDS: MORPHINE 2 MG/ML SYRINGE IVP PRN ×5 (00:08→11:10)
[2017-12-30] MEDS: SODIUM CHLORIDE FLUSH 0.9% 10 ML SYRINGE IVP PRN ×2 (06:17→11:10)
[2017-12-30] MEDS: INSULIN ASPART 300 UNIT/3 ML PEN SUBQ SCH ×2 (08:13→11:51)
[2017-12-30] MEDS: ENOXAPARIN 40 MG/0.4 ML SYRINGE SUBQ SCH (08:44)
[2017-12-30] MEDS ORDERED: INSULIN GLARGINE 300 UNIT/3 ML PEN SUBQ SCH (09:00)
[2017-12-30 09:03] VITALS: BP 169/84
--- NOTE | 2017-12-30 11:37 | Discharge Plan ---
Discharge Plan Disposition: 01 Home, Self Care Condition: Serious Prescriptions: Ondansetron Odt [Zofran Odt] 4 mg TL Q6HR PRN #20 tablet PRN Reason: Nausea / Vomiting Hydrocodone/Acetaminophen [Hydrocodone-Acetamin 5-325 mg] 1 each PO Q4H PRN #20 tablet PRN Reason: Abdominal Pain Diet: Diabetic No Smoking: If you smoke, Please STOP! Call for help. Follow-up with: Amisha Staton DO [Primary Care Provider] -
--- NOTE | 2017-12-30 12:35 | DISCHARGE SUMMARY ---
Discharge Summary Admit Date: 12/28/17 Discharge Date: 12/30/17 Discharging Provider: Silvia jennings DO Primary Care Provider: Amisha Staton Code Status: Attempt Resuscitation Condition at Discharge: Serious Discharge Disposition: 01 Home, Self Care - DIAGNOSES Admission Diagnoses: 1. Left lower quadrant abdominal pain 2. Ovarian cyst 3. Diabetic ketoacidosis Discharge Diagnoses with Status of Each Condition: 1. Left lower quadrant abdominal pain - improved, likely related to #2. 2. Ovarian cyst - likely the cause of the patient's abdominal pain. If this persists, consider control pills. 3. Diabetic ketoacidosis- resolved within an hour or 2 of admission. - HPI History of Present Illness: This is a 37-year-old female who has multiple admissions to this hospital for DKA. Her last admission was October 08, 2017 and she was discharged October 12, 2017. It was for diabetic ketoacidosis, and she is also found to have high normal TSH. It was recommended she have her TSH checked when she was not under stress. With her last admission her DKA seem to be as a result of an upper respiratory tract infection. With this encounter in our emergency room she started having left lower quadrant abdominal pain and vaginal spotting 2 days prior to admission. Her last menstrual period was 2 weeks ago. She was evaluated by Dr. Slaughter and he asked if was a possibility and she denied that to him. She denies that to me as well today. The left lower quadrant abdominal pain then in turn caused her to start having nausea, vomiting. Her sugars started to climb. Although she took her Lantus this morning, she did not feel safe taking her short acting insulin because she was not eating. In the emergency room she was afebrile at 36.5. She was tachycardic with a pulse of 126. Blood pressure 144/86 respirations 20 and 98% on room air. Dr. Boateng examined her and felt that she had abdominal pain but not an acute abdomen. There were no peritoneal findings on exam. Her glucose was 368. White cell count was normal. She had a negative hCG. Venous blood gas had a venous pH of 7.332. Arterial blood gas done 3 hours later had a pH of 7.39. She had a moderate amount of urine ketones. It is not clear if this patient is going to respond to acute therapy. As such she will be placed in observation to see if we can control her abdominal pain and bring her sugars down out of acidotic range. She has had a vaginal US in the ER and a myomatous uterus was found similar to a previous U and a right oophorectomy. Left ovary with a small cyst. - HOSPITAL COURSE Hospital Course: The patient was admitted to the hospital and placed on pain medicine for her abdominal pain. CT scan of the abdomen and pelvis showed an ovarian cyst on the left where the patient was describing her pain. Over the course of the next several days the patient improved to the point where she is now stable enough to be discharged home. She will be discharged home with prescription for Vicodin for pain management. - ALLERGIES Allergies/Adverse Reactions: Allergies Allergy/AdvReac Type Severity Reaction Status Date / Time sulfamethoxazole Allergy Intermediate rash/ Verified 12/28/17 13:59 [From Bactrim] adhesive Allergy Rash Verified 12/28/17 13:59 amoxicillin [Amoxicillin] Allergy unknown Verified 12/28/17 13:59 oxycodone [Oxycodone] AdvReac Intermediate hallucinate, Verified 12/28/17 13:59 vomit promethazine HCl * AdvReac Mild Nausea Verified 12/28/17 13:59 [From Phenergan] - MEDICATIONS Home Medications: Ambulatory Orders Medication Instructions Recorded Confirmed Insulin Glargine,Hum.rec.anlog 27 unit SQ DAILY 05/24/13 12/28/17 [Lantus] Lorazepam [Ativan] 1 mg PO QPM PRN 08/29/13 12/28/17 Insulin Glargine,Hum.rec.anlog 32 units SUBQ QPM 09/05/13 12/28/17 [Lantus Solostar] Amitriptyline [Elavil] 50 mg PO QPM 07/03/14 12/28/17 Venlafaxine ER [Effexor ER] 150 mg PO DAILY 08/27/15 12/28/17 Cyclobenzaprine [Flexeril] 10 mg PO TID PRN #15 tablet 12/01/15 12/28/17 Lisinopril 10 mg PO DAILY 10/02/16 12/28/17 Spironolactone 25 mg PO DAILY 04/11/17 12/28/17 Aspirin [Aspirin EC] 81 mg PO DAILY 10/08/17 12/28/17 Atorvastatin Calcium 80 mg PO QPM 10/08/17 12/28/17 Furosemide 80 mg PO DAILY 10/08/17 12/28/17 Levothyroxine Sodium 250 mcg PO QDAC 10/08/17 12/28/17 Metoprolol Succinate 25 mg PO DAILY 10/08/17 12/28/17 Insulin Lispro [Humalog] 20 unit SUBQ TIDWM 12/28/17 12/28/17 Hydrocodone/Acetaminophen 1 each PO Q4H PRN #20 tablet 12/30/17 [Hydrocodone-Acetamin 5-325 mg] Insulin Aspart [NovoLOG] 2 - 10 unit SUBQ 12/30/17 0800,1200,1700,2100 pen Insulin Glargine [Lantus Solostar] 27 unit SUBQ DAILY pen 12/30/17 Insulin Glargine [Lantus Solostar] 32 unit SUBQ QPM pen 12/30/17 Ondansetron Odt [Zofran Odt] 4 mg TL Q6HR PRN #20 tablet 12/30/17 - PHYSICAL EXAM AT DISCHARGE General Appearance: positive: No acute distress, Alert Eyes Bilateral: positive: Normal inspection, PERRL, EOMI, No lid inflammation, Conjunctivae nml, No scleral icterus ENT: positive: ENT inspection nml, Pharynx nml, No signs of dehydration Neck: positive: Nml inspection, Thyroid nml, No JVD, Trachea midline. negative : Thyromegaly Cardiovascular: positive: Regular rate & rhythm, No murmur, No gallop Peripheral Pulses: positive: 1+ Abdomen: positive: Non-tender, No organomegaly, Nml bowel sounds, No distention. negative: Tenderness Back: positive: Nml inspection. negative: CVA tenderness (R), CVA tenderness (L ) Skin: positive: Color nml, No rash, Warm, Dry. negative: Cyanosis Extremities: positive: Non-tender, Full ROM, Nml appearance, No pedal edema Neurologic/Psychiatric: positive: Oriented x3, CN's nml (2-12), Motor nml, Sensation nml, Mood/affect nml - LABS Result Diagrams: 12/29/17 04:50 12/29/17 04:50 - DIAGNOSTIC IMAGING Diagnostic Imaging Results: Final report reviewed Diagnostic Imaging Results Comments: PELVIC ULTRASOUND: 12/28/2017 HISTORY: Left pelvic pain. COMPARISON: CT 10/08/2017, pelvic ultrasound 08/17/2017. TECHNIQUE: Realtime scanning by the teacher's aide with saved static images reviewed. Transabdominal approach for Global Assessment and endovaginal scanning for detailed assessment of the ovaries and adnexal structures. FINDINGS: Uterus anteverted in configuration, 8.6 x 4.5 x 6.9 cm, volume 140 mL. Scattered uterine fibroids are noted, the dominant anterior superior intramural 3.1 x 2.5 x 3.6 cm, similar to previous. Endometrial echo: 10.4 mm. Right ovary: Surgically absent. No adnexal masses. Left ovary: 4.5 x 2.8 x 3.2 cm, volume 21 mL. Small follicle present. Normal echotexture and blood flow. Free fluid: None. IMPRESSION: MYOMATOUS CHANGES OF THE UTERUS. STATUS POST RIGHT OOPHORECTOMY. UNREMARKABLE APPEARANCE OF THE LEFT OVARY. OVERALL, THE EXAMINATION IS SIMILAR TO 2017. - FOLLOW UP Follow Up: Follow-up with Dr. Staton in 1 week - TIME SPENT Time Spent in Discharge (Minutes): 40
== END 2017-12-30 12:30 | disposition home or self-care (01) ==
LOC: ED 13:47 → ICU 17:27
PROVIDERS: ADMIT Specialist; ATTEND Hospitalist
DX: R10.32 Left lower quadrant pain (principal); N83.202 Unspecified ovarian cyst, left side; E10.10 Type 1 diabetes mellitus with ketoacidosis without coma; D25.1 Intramural leiomyoma of uterus; R10.814 Left lower quadrant abdominal tenderness; R10.2 Pelvic and perineal pain; G89.29 Other chronic pain; E03.9 Hypothyroidism, unspecified; I10 Essential (primary) hypertension; F41.0 Panic disorder [episodic paroxysmal anxiety]; F31.9 Bipolar disorder, unspecified; F43.10 Post-traumatic stress disorder, unspecified; E66.3 Overweight; Z79.4 Long term (current) use of insulin; Z90.721 Acquired absence of ovaries, unilateral; Z86.14 Personal history of Methicillin resistant Staphylococcus aureus infection; Z90.49 Acquired absence of other specified parts of digestive tract; Z95.0 Presence of cardiac pacemaker; Z79.82 Long term (current) use of aspirin; Z91.410 Personal history of adult physical and sexual abuse; Z87.42 Personal history of other diseases of the female genital tract; Z68.36 Body mass index [BMI] 36.0-36.9, adult
CPT/HCPCS: 36415; 36600; 76830; 76856; 80048; 80053; 81025; 82009; 82040; 82803; 83036; 83690; 83735; 84100; 85025; 87150; 93975; 96361; 96372; 96374; 96375; 96376; 99284; A9270; G0378; J1170; J1650; J1815; J2270; 87040

== ENCOUNTER 2018-01-19 18:10 | Inpatient (IN) | payer MEDICAID ==
[2018-01-19] MEDS ORDERED: SODIUM CHLORIDE 0.9% 1,000 ML IV ONE ×2 (18:39→19:43)
[2018-01-19 18:43] LABS: BASOPHILS # (AUTO) 0.1 10^3/uL (0.0-0.1); BASOPHILS % (AUTO) 0.8 %; EOSINOPHILS % (AUTO) 0.4 %; HGB - HEMOGLOBIN 13.4 g/dL (12.0-16.0); LYMPHOCYTES # (AUTO) 1.1 10^3/uL (1.5-3.5); LYMPHOCYTES % (AUTO) 11.3 %; MEAN CORPUSCULAR HEMOGLOBIN 33.1 pg (27.0-31.0); MEAN CORPUSCULAR HGB CONC 33.1 g/dL (32.0-36.0); MEAN CORPUSCULAR VOLUME 99.9 fL (81.0-99.0); MEAN PLATELET VOLUME 7.9 fL (7.9-10.8); MONOCYTES # (AUTO) 0.5 10^3/uL (0.0-1.0); NEUTROPHILS # (AUTO) 8.3 10^3/uL (1.5-6.6); NEUTROPHILS % (AUTO) 82.5 %; PLT - PLATELET COUNT 292 10^3/uL (130-450); RED BLOOD COUNT 4.06 10^6/uL (4.20-5.40); RED CELL DISTRIBUTION WIDTH 12.8 % (12.0-15.0)
[2018-01-19 18:49] LABS: BILIRUBIN,URINE NEGATIVE (NEGATIVE); GLUCOSE, URINE (UA) >=1000 mg/dL (NEGATIVE); KETONES,URINE (UA) 40 mg/dL (NEGATIVE); LEUKOCYTE ESTERASE, URINE NEGATIVE (NEGATIVE); NITRITE,URINE NEGATIVE (NEGATIVE); OCCULT BLOOD,URINE TRACE-LYSE (NEGATIVE); PROTEIN,URINE TRACE mg/dL (NEGATIVE); UROBILINOGEN,URINE 0.2 (NORMAL) E.U./dL (NORMAL)
[2018-01-19 18:52] LABS: CLARITY,URINE CLEAR (CLEAR)
[2018-01-19 18:53] LABS: HCG UR QUAL NEGATIVE
[2018-01-19] MEDS ORDERED: MORPHINE 10 MG/ML VIAL IVP STA ×2 (19:07→20:12)
[2018-01-19] MEDS ORDERED: cefTRIAXone 1 GM VIAL IVP STA (19:07)
[2018-01-19] MEDS ORDERED: ONDANSETRON 4 MG/2 ML VIAL IVP STA (19:07)
[2018-01-19] MEDS ORDERED: INSULIN REGULAR HUMAN 100 UNIT/1 ML 10 ML MDV IVP STA ×2 (19:08→20:02)
[2018-01-19 19:10] LABS: ALBUMIN 3.2 g/dL (3.2-5.5); ALBUMIN/GLOBULIN RATIO 0.7 (1.0-2.2); BILIRUBIN,TOTAL 1.3 mg/dL (0.2-1.0); CALCIUM 8.6 mg/dL (8.5-10.3); CREATININE 1.1 mg/dL (0.4-1.0); TOTAL PROTEIN 7.6 g/dL (6.7-8.2)
[2018-01-19 19:12] LABS: VBG BASE EXCESS -7.9 mmol/L (-2 - +2); VBG PCO2 28.9 mmHg (41-51); VBG PH 7.363 (7.31-7.41); VBG PO2 62.3 mmHg (25-47)
[2018-01-19 19:21] LABS: KETONES, SERUM (ACETEST) LARGE (NEGATIVE)
[2018-01-19 19:32] LABS: MAGNESIUM 1.9 mg/dL (1.7-2.8)
--- NOTE | 2018-01-19 20:14 | ED Physician Documentation ---
PD HPI NVD - Stated complaint Stated Complaint: H BLOOD SUGAR/VOM/PX DURING URINATION - Chief complaint Chief Complaint: Abd Pain - History obtained from History obtained from: Patient - History of Present Illness Timing - onset: Today Timing - duration: Days (1) Timing - details: Abrupt onset, Still present Associated symptoms: Fever (subjective), Loss of appetite, Other (She had onset of nausea and vomiting and checked sugar and it read "HI". She says her sugar was normal at 150s this morning. Has had pain right ear and was treated for otitis externa recently with clinda and an ear drop. She says was improved but now hurting again the past 1-2 days. She says she has been taking her meds, including insulin, regularly.). No: Abdominal pain, Hematemesis, Melena Contributing factors: Diabetes (with hi sugar today). No: Sick contact, Bad food, Travel Similar symptoms before: Diagnosis (DKA) Review of Systems Constitutional: reports: Fever, Chills, Myalgias (subjective today and yesterday ) Ears: reports: Ear pain, Drainage/discharge. denies: Tinnitus/ringing, Foreign body Nose: denies: Rhinorrhea / runny nose, Congestion, Sinus pressure / pain Throat: denies: Dental pain / toothache, Oral lesions / sores, Sore throat Cardiac: denies: Chest pain / pressure, Palpitations Respiratory: denies: Dyspnea, Cough GI: reports: Nausea (today), Vomiting. denies: Abdominal Pain, Constipation, Diarrhea, Hematemesis : denies: Dysuria, Frequency Skin: denies: Rash, Lesions Neurologic: reports: Generalized weakness. denies: Focal weakness, Numbness, Confused, Altered mental status, Headache PD PAST MEDICAL HISTORY - Past Medical History Cardiovascular: Hypertension, Arrhythmia, Other Respiratory: Pneumonia, Other Neuro: None Endocrine/Autoimmune: Type 1 diabetes, HyPOthyroidism, Other GI: GERD [employer]: Endometriosis, Fibroids, Other : None HEENT: None Psych: Depression, Anxiety, Bipolar disorder, Panic attacks, Post traumatic stress disorder, Claustrophobia Musculoskeletal: Gout, Chronic back pain Derm: Other - Past Surgical History Past Surgical History: Yes General: Cholecystectomy, Appendectomy, Hiatal hernia repair, Colonoscopy, EGD /[employer]: Oophrectomy, Other Cardiovascular: Pacemaker, Other HEENT: Myringotomy (tubes), Tonsil/Adenoidectomy, Other - Present Medications Home Medications: Ambulatory Orders Medication Instructions Recorded Confirmed Insulin Glargine,Hum.rec.anlog 27 unit SQ DAILY 05/24/13 12/28/17 [Lantus] Lorazepam [Ativan] 1 mg PO QPM PRN 08/29/13 12/28/17 Insulin Glargine,Hum.rec.anlog 32 units SUBQ QPM 09/05/13 12/28/17 [Lantus Solostar] Amitriptyline [Elavil] 50 mg PO QPM 07/03/14 12/28/17 Venlafaxine ER [Effexor ER] 150 mg PO DAILY 08/27/15 12/28/17 Cyclobenzaprine [Flexeril] 10 mg PO TID PRN #15 tablet 12/01/15 12/28/17 Lisinopril 10 mg PO DAILY 10/02/16 12/28/17 Spironolactone 25 mg PO DAILY 04/11/17 12/28/17 Aspirin [Aspirin EC] 81 mg PO DAILY 10/08/17 12/28/17 Atorvastatin Calcium 80 mg PO QPM 10/08/17 12/28/17 Furosemide 80 mg PO DAILY 10/08/17 12/28/17 Levothyroxine Sodium 250 mcg PO QDAC 10/08/17 12/28/17 Metoprolol Succinate 25 mg PO DAILY 10/08/17 12/28/17 Insulin Lispro [Humalog] 20 unit SUBQ TIDWM 12/28/17 12/28/17 Insulin Aspart [NovoLOG] 2 - 10 unit SUBQ 12/30/17 0800,1200,1700,2100 pen Insulin Glargine [Lantus Solostar] 27 unit SUBQ DAILY pen 12/30/17 Insulin Glargine [Lantus Solostar] 32 unit SUBQ QPM pen 12/30/17 - Allergies Allergies/Adverse Reactions: Allergies Allergy/AdvReac Type Severity Reaction Status Date / Time sulfamethoxazole Allergy Intermediate rash/ Verified 12/28/17 13:59 [From Bactrim] adhesive Allergy Rash Verified 12/28/17 13:59 amoxicillin [Amoxicillin] Allergy unknown Verified 12/28/17 13:59 oxycodone [Oxycodone] AdvReac Intermediate hallucinate, Verified 12/28/17 13:59 vomit promethazine HCl * AdvReac Mild Nausea Verified 01/19/18 18:18 [From Phenergan] - Social History Does the pt smoke?: No Smoking Status: Never smoker Does the pt drink ETOH?: No Does the pt have substance abuse?: No - Family History Family history: reports: Non contributory - Immunizations Immunizations are current?: Yes - POLST Patient has POLST: No POLST Status: Full Code PD ED PE NORMAL - Vitals Vital signs reviewed: Yes - General General: Alert and oriented X 3, No acute distress, Well developed/nourished - HEENT HEENT: PERRL, Moist mucous membranes, Pharynx benign, Dentition benign. No: Ears normal (left is normal; right canal with swelling and redness mid canal. ) - Neck Neck: Supple, no meningeal sign, No adenopathy - Cardiac Cardiac: No murmur. No: RRR (regular but tachycardic) - Respiratory Respiratory: No respiratory distress, Clear bilaterally - Abdomen Abdomen: Normal bowel sounds, Soft - Female Female : Deferred - Rectal Rectal: Deferred - Back Back: No CVA TTP - Derm Derm: Normal color, Warm and dry, No rash - Extremities Extremities: No deformity, No tenderness to palpate, No edema - Neuro Neuro: Alert and oriented X 3, No motor deficit, Normal speech - Psych Psych: Normal mood, Normal affect Results - Vitals Vitals: Vital Signs - 24 hr 01/19/18 01/19/18 18:14 20:10 Temperature 36.7 C Heart Rate 130 H 112 H Respiratory 24 25 H Rate Blood Pressure 187/114 H 174/86 H O2 Saturation 99 96 Oxygen O2 Source Room air - Labs Labs: Laboratory Tests 01/19/18 01/19/18 01/19/18 18:15 18:35 18:35 WBC 10.0 RBC 4.06 L Hgb 13.4 Hct 40.5 MCV 99.9 H MCH 33.1 H MCHC 33.1 RDW 12.8 Plt Count 292 MPV 7.9 Neut # (Auto) 8.3 H Lymph # (Auto) 1.1 L Bartholomew # (Auto) 0.5 Eos # (Auto) 0.0 Baso # (Auto) 0.1 Absolute Nucleated RBC 0.00 Nucleated RBC % 0.0 VBG pH VBG pCO2 VBG pO2 VBG HCO3 VBG Total CO2 VBG O2 Saturation VBG Base Excess Sodium 124 L Potassium 4.1 Chloride 88 L Carbon Dioxide 16 L Anion Gap 20.0 H BUN 18 Creatinine 1.1 H Estimated GFR (MDRD) 55 L Glucose 537 H* POC Whole Bld Glucose Calcium 8.6 Magnesium Total Bilirubin 1.3 H AST 37 ALT 22 Alkaline Phosphatase 156 H Total Protein 7.6 Albumin 3.2 Globulin 4.4 H Albumin/Globulin Ratio 0.7 L Lipase 63 H Urine Color YELLOW Urine Clarity CLEAR Urine pH 5.0 Ur Specific [place] 1.010 Urine Protein TRACE Urine Glucose (UA) >=1000 H Urine Ketones 40 H Urine Occult Blood TRACE-LYSE Urine Nitrite NEGATIVE Urine Bilirubin NEGATIVE Urine Urobilinogen 0.2 (NORMAL) Ur Leukocyte Esterase NEGATIVE Ur Microscopic Review NOT INDICATED Urine Culture Comments NOT INDICATED Urine HCG, Qual NEGATIVE Serum Ketones 01/19/18 01/19/18 01/19/18 18:35 18:35 18:53 WBC RBC Hgb Hct MCV MCH MCHC RDW Plt Count MPV Neut # (Auto) Lymph # (Auto) Bartholomew # (Auto) Eos # (Auto) Baso # (Auto) Absolute Nucleated RBC Nucleated RBC % VBG pH 7.363 VBG pCO2 28.9 L VBG pO2 62.3 H VBG HCO3 16.1 L VBG Total CO2 17.0 L VBG O2 Saturation 92.0 H VBG Base Excess -7.9 L Sodium Potassium Chloride Carbon Dioxide Anion Gap BUN Creatinine Estimated GFR (MDRD) Glucose POC Whole Bld Glucose 506 H* Calcium Magnesium 1.9 Total Bilirubin AST ALT Alkaline Phosphatase Total Protein Albumin Globulin Albumin/Globulin Ratio Lipase Urine Color Urine Clarity Urine pH Ur Specific [place] Urine Protein Urine Glucose (UA) Urine Ketones Urine Occult Blood Urine Nitrite Urine Bilirubin Urine Urobilinogen Ur Leukocyte Esterase Ur Microscopic Review Urine Culture Comments Urine HCG, Qual Serum Ketones LARGE H 01/19/18 19:54 WBC RBC Hgb Hct MCV MCH MCHC RDW Plt Count MPV Neut # (Auto) Lymph # (Auto) Bartholomew # (Auto) Eos # (Auto) Baso # (Auto) Absolute Nucleated RBC Nucleated RBC % VBG pH VBG pCO2 VBG pO2 VBG HCO3 VBG Total CO2 VBG O2 Saturation VBG Base Excess Sodium Potassium Chloride Carbon Dioxide Anion Gap BUN Creatinine Estimated GFR (MDRD) Glucose POC Whole Bld Glucose 327 H Calcium Magnesium Total Bilirubin AST ALT Alkaline Phosphatase Total Protein Albumin Globulin Albumin/Globulin Ratio Lipase Urine Color Urine Clarity Urine pH Ur Specific [place] Urine Protein Urine Glucose (UA) Urine Ketones Urine Occult Blood Urine Nitrite Urine Bilirubin Urine Urobilinogen Ur Leukocyte Esterase Ur Microscopic Review Urine Culture Comments Urine HCG, Qual Serum Ketones PD MEDICAL DECISION MAKING - ED course Complexity details: re-evaluated patient, considered differential (She is only mildly acidotic with a pH 7.3. However she does have large ketones in the serum and urine. She does have quite elevated blood sugar. We did start treatment with fluids and antiemetics and insulin for DKA. I talked with Dr. Carcamo the hospitalist to agree to have the patient in the hospital for further treatment.), d/w patient - Sepsis Event Vital Signs: Vital Signs - 24 hr 01/19/18 01/19/18 18:14 20:10 Temperature 36.7 C Heart Rate 130 H 112 H Respiratory 24 25 H Rate Blood Pressure 187/114 H 174/86 H O2 Saturation 99 96 Oxygen O2 Source Room air Departure - Departure Disposition: ED Place in Observation Clinical Impression: DKA, type 1 Qualifiers: Diabetes mellitus complication detail: without coma Qualified Code(s): E10.10 - Type 1 diabetes mellitus with ketoacidosis without coma Otitis externa Qualifiers: Otitis externa type: unspecified type Chronicity: acute Laterality: right Qualified Code(s): H60.501 - Unspecified acute noninfective otitis externa, right ear Condition: Stable Record reviewed to determine appropriate education?: Yes Discharge Date/Time: 01/19/18 21:06
[2018-01-19] MEDS ORDERED: CYCLOBENZAPRINE 10 MG TABLET PO PRN (20:16)
[2018-01-19] MEDS ORDERED: ACETAMINOPHEN 325 MG TABLET PO PRN (20:17)
[2018-01-19] MEDS ORDERED: oxyCODONE 5 MG TABLET PO PRN ×2 (20:17)
[2018-01-19] MEDS ORDERED: ONDANSETRON 4 MG/2 ML VIAL IVP PRN (20:17)
[2018-01-19] MEDS ORDERED: PROCHLORPERAZINE 10 MG/2 ML VIAL IVP PRN (20:17)
[2018-01-19] MEDS ORDERED: PROMETHAZINE 25 MG/1 ML VIAL IM PRN (20:17)
[2018-01-19] MEDS ORDERED: INSULIN REGULAR HUMAN 100 UNIT/1 ML 10 ML MDV SUBQ SCH (20:17)
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
[2018-01-19] MEDS ORDERED: SODIUM CHLORIDE 0.9% 1,000 ML IV SCH (21:00)
[2018-01-19 21:08] LABS: VBG BASE EXCESS -3.8 mmol/L (-2 - +2); VBG PCO2 40.7 mmHg (41-51); VBG PH 7.343 (7.31-7.41); VBG PO2 47.5 mmHg (25-47); VBG TOTAL CO2 22.9 mmol/L (24-29)
[2018-01-19 21:09] LABS: CALCIUM 8.2 mg/dL (8.5-10.3); CREATININE 0.7 mg/dL (0.4-1.0); MAGNESIUM 1.9 mg/dL (1.7-2.8)
--- NOTE | 2018-01-19 21:16 | XRAY Report ---
Procedure Date: 01/19/2018 Accession Number: [id number] / [id number] Procedure: XR - Chest 1 View X-Ray CPT Code: 75220 FULL RESULT: EXAM: CHEST RADIOGRAPHY EXAM DATE: 01/19/2018 09:00 PM. CLINICAL HISTORY: Presented with DKA r/o infection. COMPARISON: None. TECHNIQUE: 1 view. FINDINGS: Lungs/Pleura: No focal opacities evident. No pleural effusion. No pneumothorax. Mediastinum: Within exam limitations, the cardiomediastinal contour is normal. Other: Left subclavian multilead pacemaker is in place. IMPRESSION: No acute intrathoracic plain film abnormality. [facility]
[2018-01-19] MEDS: AMITRIPTYLINE 25 MG TABLET PO SCH (21:41)
[2018-01-19] MEDS: ATORVASTATIN 40 MG TABLET PO SCH (21:41)
[2018-01-19] MEDS: SODIUM CHLORIDE FLUSH 0.9% 10 ML SYRINGE IVP PRN (21:45)
[2018-01-19] MEDS: MORPHINE 2 MG/ML SYRINGE IVP PRN (21:45)
[2018-01-19] MEDS ORDERED: INSULIN REGULAR HUMAN 100 UNIT in SODIUM CHLORIDE 0.9% 100ML 99 ML IV SCH (22:01)
[2018-01-19 22:39] LABS: CALCIUM 7.9 mg/dL (8.5-10.3); CREATININE 0.8 mg/dL (0.4-1.0); MAGNESIUM 1.6 mg/dL (1.7-2.8)
[2018-01-19] MEDS ORDERED: MAGNESIUM SULFATE 2 GRAM 2 GM/50 ML BAG IV SCH (22:43)
[2018-01-19] MEDS: POTASSIUM CHLOR 10 MEQ/100 ML 10 MEQ/100 ML BAG IV SCH (23:20)
[2018-01-19] MEDS ORDERED: D5.45NS W/20 MEQ KCL 1,000 ML IV SCH (23:45)
[2018-01-20] MEDS: POTASSIUM CHLOR 10 MEQ/100 ML 10 MEQ/100 ML BAG IV SCH ×3 (00:21→02:29)
[2018-01-20] MEDS: MORPHINE 2 MG/ML SYRINGE IVP PRN ×10 (00:25→22:11)
[2018-01-20 00:50] LABS: KETONES, SERUM (ACETEST) NEGATIVE (NEGATIVE)
[2018-01-20 00:52] LABS: BUN - BLOOD UREA NITROGEN 12 mg/dL (6-20); CALCIUM 7.8 mg/dL (8.5-10.3); CARBON DIOXIDE - CO2 26 mmol/L (21-32); CHLORIDE 100 mmol/L (101-111); CREATININE 0.5 mg/dL (0.4-1.0); GFR - MDRD 137 (>89); GLUCOSE 101 mg/dL (70-100); SODIUM 134 mmol/L (135-145)
[2018-01-20] MEDS ORDERED: INSULIN GLARGINE 300 UNIT/3 ML PEN SUBQ SCH ×2 (01:05→21:50)
[2018-01-20] MEDS: SODIUM CHLORIDE FLUSH 0.9% 10 ML SYRINGE IVP SCH ×3 (02:16→18:05)
[2018-01-20] MEDS: LEVOTHYROXINE 125 MCG TABLET PO SCH (06:22)
[2018-01-20] MEDS: PANTOPRAZOLE 40 MG VIAL IVP SCH (06:22)
[2018-01-20 06:31] LABS: BASOPHILS % (AUTO) 0.8 %; EOSINOPHILS % (AUTO) 1.2 %; HGB - HEMOGLOBIN 12.2 g/dL (12.0-16.0); LYMPHOCYTES # (AUTO) 1.1 10^3/uL (1.5-3.5); LYMPHOCYTES % (AUTO) 26.1 %; MEAN CORPUSCULAR HEMOGLOBIN 33.4 pg (27.0-31.0); MEAN CORPUSCULAR VOLUME 100.9 fL (81.0-99.0); MEAN PLATELET VOLUME 7.5 fL (7.9-10.8); MONOCYTES # (AUTO) 0.3 10^3/uL (0.0-1.0); MONOCYTES % (AUTO) 8.1 %; NEUTROPHILS # (AUTO) 2.6 10^3/uL (1.5-6.6); NEUTROPHILS % (AUTO) 63.8 %; PLT - PLATELET COUNT 231 10^3/uL (130-450); RED BLOOD COUNT 3.66 10^6/uL (4.20-5.40); RED CELL DISTRIBUTION WIDTH 13.3 % (12.0-15.0); WHITE BLOOD COUNT 4.1 x10^3/uL (4.8-10.8)
[2018-01-20 06:47] LABS: ALBUMIN 2.8 g/dL (3.2-5.5); ALBUMIN/GLOBULIN RATIO 0.8 (1.0-2.2); BILIRUBIN,TOTAL 1.2 mg/dL (0.2-1.0); CALCIUM 7.8 mg/dL (8.5-10.3); CREATININE 0.8 mg/dL (0.4-1.0); MAGNESIUM 2.5 mg/dL (1.7-2.8); PHOSPHORUS 3.2 mg/dL (2.5-4.6); TOTAL PROTEIN 6.5 g/dL (6.7-8.2)
[2018-01-20 07:12] LABS: HB2 TOTAL 13.1 g/dL; HEMOGLOBIN A1C 1.46 g/dL; HEMOGLOBIN A1C % 12.3 % (4.6-6.2)
[2018-01-20] MEDS ORDERED: INSULIN REGULAR HUMAN 100 UNIT in SODIUM CHLORIDE 0.9% 100ML 99 ML IV SCH ×2 (08:00→16:51)
[2018-01-20] MEDS ORDERED: INSULIN ASPART 300 UNIT/3 ML PEN SUBQ SCH (08:00)
[2018-01-20] MEDS: INSULIN GLARGINE 300 UNIT/3 ML PEN SUBQ SCH ×2 (08:40→22:10)
[2018-01-20] MEDS: SODIUM CHLORIDE 0.9% 1,000 ML IV SCH ×3 (08:42→20:12)
[2018-01-20] MEDS: LISINOPRIL 20 MG TABLET PO SCH (09:57)
[2018-01-20] MEDS: ASPIRIN EC 81 MG TABLET PO SCH (09:57)
[2018-01-20] MEDS: ENOXAPARIN 40 MG/0.4 ML SYRINGE SUBQ SCH (09:57)
[2018-01-20] MEDS: VENLAFAXINE ER 75 MG CAPSULE PO SCH (10:00)
[2018-01-20] MEDS: SPIRONOLACTONE 25 MG TABLET PO SCH (10:01)
[2018-01-20] MEDS: METOPROLOL SUCCINATE 25 MG TABLET PO SCH (10:01)
--- NOTE | 2018-01-20 19:56 | PROVIDER PROGRESS NOTE ---
Assessment/Plan - Problem List (1) DKA, type 1 Qualifiers: Diabetes mellitus complication detail: without coma Qualified Code(s): E10.10 - Type 1 diabetes mellitus with ketoacidosis without coma Assessment/Plan: Pt no longer has N/V. A diet was ordered and tolerated. Insulin drip to continue since she still has moderate serum ketones. Lantus restarted. Monitor POC glu and serum ketones to determine when Insulin drip can be stopped. (2) Otitis externa Qualifiers: Otitis externa type: unspecified type Chronicity: acute Laterality: right Qualified Code(s): H60.501 - Unspecified acute noninfective otitis externa, right ear Assessment/Plan: Pt on iv antibiotics. She will need transition to po antibiotics at [facility], possibly tomorrow. (3) Dehydration Assessment/Plan: Improved by clinical exam and serum Na. Continue gentle iv fluids. - Current Meds Current Meds: Current Medications Generic Name Dose Route Start Last Admin Trade Name Freq PRN Reason Stop Dose Admin Amitriptyline HCl 50 mg 01/19/18 21:00 01/19/18 21:41 Elavil PO 50 mg QPM ADALBERTO Administration Aspirin 81 mg 01/20/18 09:00 01/20/18 09:57 Ecotrin PO 81 mg DAILY ADALBERTO Administration Atorvastatin Calcium 80 mg 01/19/18 21:00 01/19/18 21:41 Lipitor PO 80 mg QPM ADALBERTO Administration Enoxaparin Sodium 40 mg 01/20/18 09:00 01/20/18 09:57 Lovenox SUBQ 40 mg DAILY ADALBERTO Administration Sodium Chloride 1,000 mls @ 125 mls/hr 01/20/18 08:00 01/20/18 19:00 Normal Saline 0.9% IV 125 mls/hr .Q8H ADALBERTO Infusion Insulin Human Regular 100 unit 100 mls @ 4 mls/hr 01/20/18 08:00 01/20/18 19: 00 / Sodium Chloride IV 4 unit/hr .Q25H ADALBERTO 4 mls/hr 4 UNIT/HR Infusion Insulin Glargine 27 unit 01/20/18 08:00 01/20/18 08:40 Lantus Solostar SUBQ Not Given QDBREAKFAST ADALBERTO Insulin Glargine 10 unit 01/20/18 01:05 01/20/18 01:29 Lantus Solostar SUBQ 10 unit QPM ADALBERTO Administration Levothyroxine Sodium 250 mcg 01/20/18 07:00 01/20/18 06:22 Synthroid PO 250 mcg QDAC ADALBERTO Administration Lisinopril 10 mg 01/20/18 09:00 01/20/18 09:57 Zestril PO 10 mg DAILY ADALBERTO Administration Metoprolol Succinate 25 mg 01/20/18 09:00 01/20/18 10:01 Toprol Xl PO 25 mg DAILY ADALBERTO Administration Morphine Sulfate 2 mg 01/19/18 20:17 01/20/18 18:07 Morphine IVP 2 mg Q2H PRN Administration Pain 8 to 10 Pantoprazole Sodium 40 mg 01/20/18 07:00 01/20/18 06:22 Protonix IVP 40 mg QDAC ADALBERTO Administration Sodium Chloride 10 ml 01/20/18 01:00 01/20/18 18:05 Normal Saline Flush 0.9% IVP Not Given 0100,0900,1700 ADALBERTO Sodium Chloride 10 ml 01/19/18 20:17 01/19/18 21:45 Normal Saline Flush 0.9% IVP 10 ml PRN PRN Administration NEEDED PER PROVIDER ORDERS Spironolactone 25 mg 01/20/18 09:00 01/20/18 10:01 Aldactone PO 25 mg DAILY ADALBERTO Administration Venlafaxine HCl 150 mg 01/20/18 09:00 01/20/18 10:00 Effexor Er PO 150 mg DAILY ADALBERTO Administration - Lab Result Fish Bone Diagrams: 01/20/18 06:15 01/20/18 06:15 - Additional Planning My Orders: My Active Orders 01/20/18 20:00 KETONES, SERUM (ACETEST) [CHEM] Timed 01/20/18 Dinner DIET [Carb-controlled Diet] [DIET] 01/21/18 05:00 KETONES, SERUM (ACETEST) [CHEM] DAILYLAB 01/22/18 05:00 KETONES, SERUM (ACETEST) [CHEM] DAILYLAB Subjective - Subjective Patient Reports: Feeling Better, No Complaints Objective Vital Signs: Vital Signs - 24 hr 01/19/18 01/19/18 01/19/18 20:43 21:17 22:00 Temperature 37.1 C Heart Rate 117 H Heart Rate [ 114 H 121 H Monitoring electrodes] Respiratory 13 21 21 Rate Blood Pressure 167/85 H Blood Pressure 154/66 H 157/73 H [Right Brachial artery] O2 Saturation 94 98 98 01/19/18 01/20/18 01/20/18 23:00 00:11 01:00 Temperature Heart Rate Heart Rate [ 123 H 116 H 112 H Monitoring electrodes] Respiratory 20 16 15 Rate Blood Pressure Blood Pressure 112/63 112/60 [Right Brachial artery] O2 Saturation 98 98 96 01/20/18 01/20/18 01/20/18 02:05 03:00 04:00 Temperature Heart Rate Heart Rate [ 108 H 112 H 112 H Monitoring electrodes] Respiratory 15 16 15 Rate Blood Pressure Blood Pressure 110/60 110/62 108/61 [Right Brachial artery] O2 Saturation 97 96 96 01/20/18 01/20/18 01/20/18 05:09 06:00 07:05 Temperature 36.9 C Heart Rate Heart Rate [ 106 H 108 H 108 H Monitoring electrodes] Respiratory 17 14 20 Rate Blood Pressure Blood Pressure 138/66 H 115/54 L 102/58 L [Right Brachial artery] O2 Saturation 96 99 01/20/18 01/20/18 01/20/18 08:00 10:00 11:00 Temperature 36.7 C Heart Rate Heart Rate [ 104 H 104 H 103 H Monitoring electrodes] Respiratory 17 97 H 17 Rate Blood Pressure Blood Pressure 118/56 L 129/76 118/68 [Right Brachial artery] O2 Saturation 98 98 97 01/20/18 01/20/18 01/20/18 12:00 13:00 15:00 Temperature 98.1 C H Heart Rate Heart Rate [ 104 H 106 H 97 Monitoring electrodes] Respiratory 19 17 19 Rate Blood Pressure Blood Pressure 131/75 H 139/71 H 136/74 H [Right Brachial artery] O2 Saturation 96 94 98 01/20/18 01/20/18 01/20/18 17:00 18:00 19:00 Temperature Heart Rate Heart Rate [ 98 100 Monitoring electrodes] Respiratory 18 16 Rate Blood Pressure Blood Pressure 129/71 149/78 H 148/94 H [Right Brachial artery] O2 Saturation 98 99 01/20/18 19:05 Temperature 36.7 C Heart Rate Heart Rate [ 101 H Monitoring electrodes] Respiratory 13 Rate Blood Pressure Blood Pressure 148/94 H [Right Brachial artery] O2 Saturation 98 Oxygen O2 Source Room air I&O (Last 24 Hrs): Intake and Output Totals x24h 01/18/18 01/19/18 01/20/18 23:59 23:59 23:59 Intake Total 5379.266 8566.906 Output Total 1000 4350 Balance 11.741 -708.094 General: No acute distress HEENT: Other (No redness or tenderness of external R ear) Neck: Supple, No JVD Neuro: Non Focal Cardiovascular: Regular rate, No murmurs Respiratory: No respiratory distress, Breath sounds nml Abdomen: Normal bowel sounds, Soft Extremities: No edema - Results Results: Laboratory Results WBC 4.1 x10^3/uL (4.8-10.8) L 01/20/18 06:15 RBC 3.66 10^6/uL (4.20-5.40) L 01/20/18 06:15 Hgb 12.2 g/dL (12.0-16.0) 01/20/18 06:15 Hct 37.0 % (37.0-47.0) 01/20/18 06:15 MCV 100.9 fL (81.0-99.0) H 01/20/18 06:15 MCH 33.4 pg (27.0-31.0) H 01/20/18 06:15 MCHC 33.0 g/dL (32.0-36.0) 01/20/18 06:15 RDW 13.3 % (12.0-15.0) 01/20/18 06:15 Plt Count 231 10^3/uL (130-450) 01/20/18 06:15 MPV 7.5 fL (7.9-10.8) L 01/20/18 06:15 Neut # (Auto) 2.6 10^3/uL (1.5-6.6) 01/20/18 06:15 Lymph # (Auto) 1.1 10^3/uL (1.5-3.5) L 01/20/18 06:15 [place] # (Auto) 0.3 10^3/uL (0.0-1.0) 01/20/18 06:15 Eos # (Auto) 0.0 10^3/uL (0.0-0.7) 01/20/18 06:15 Baso # (Auto) 0.0 10^3/uL (0.0-0.1) 01/20/18 06:15 Absolute Nucleated RBC 0.01 x10^3/uL 01/20/18 06:15 Nucleated RBC % 0.3 /100WBC 01/20/18 06:15 VBG pH 7.343 (7.31-7.41) 01/19/18 20:52 VBG pCO2 40.7 mmHg (41-51) L 01/19/18 20:52 VBG pO2 47.5 mmHg (25-47) H 01/19/18 20:52 VBG HCO3 21.6 mmol/L (23-28) L 01/19/18 20:52 VBG Total CO2 22.9 mmol/L (24-29) L 01/19/18 20:52 VBG O2 Saturation 83.0 % (60-80) H 01/19/18 20:52 VBG Base Excess -3.8 mmol/L (-2 - +2) L 01/19/18 20:52 Sodium 128 mmol/L (135-145) L 01/20/18 06:15 Potassium 5.2 mmol/L (3.5-5.0) H 01/20/18 06:15 Chloride 97 mmol/L (101-111) L 01/20/18 06:15 Carbon Dioxide 20 mmol/L (21-32) L 01/20/18 06:15 Anion Gap 11.0 (6-13) 01/20/18 06:15 BUN 11 mg/dL (6-20) 01/20/18 06:15 Creatinine 0.8 mg/dL (0.4-1.0) 01/20/18 06:15 Estimated GFR (MDRD) 80 (>89) L 01/20/18 06:15 Glucose 457 mg/dL (70-100) H 01/20/18 06:15 POC Whole Bld Glucose 326 mg/dL (70 - 100) H 01/20/18 16:54 Glycated Hemoglobin 12.3 % (4.6-6.2) H 01/20/18 06:15 Estim Average Glucose 306 (70-100) H 01/20/18 06:15 Calcium 7.8 mg/dL (8.5-10.3) L 01/20/18 06:15 Phosphorus 3.2 mg/dL (2.5-4.6) 01/20/18 06:15 Magnesium 2.5 mg/dL (1.7-2.8) 01/20/18 06:15 Total Bilirubin 1.2 mg/dL (0.2-1.0) H 01/20/18 06:15 AST 38 IU/L (10-42) 01/20/18 06:15 ALT 24 IU/L (10-60) 01/20/18 06:15 Alkaline Phosphatase 155 IU/L (42-121) H 01/20/18 06:15 Troponin I < 0.04 ng/mL (<0.49) 01/20/18 02:00 Total Protein 6.5 g/dL (6.7-8.2) L 01/20/18 06:15 Albumin 2.8 g/dL (3.2-5.5) L 01/20/18 06:15 Globulin 3.7 g/dL (2.1-4.2) 01/20/18 06:15 Albumin/Globulin Ratio 0.8 (1.0-2.2) L 01/20/18 06:15 Lipase 63 U/L (22-51) H 01/19/18 18:35 TSH 8.93 uIU/mL (0.34-5.60) H 01/20/18 06:15 Free T4 0.69 ng/dL (0.58-1.64) 01/20/18 06:15 Urine Color YELLOW 01/19/18 18:15 Urine Clarity CLEAR (CLEAR) 01/19/18 18:15 Urine pH 5.0 PH (5.0-7.5) 01/19/18 18:15 Ur Specific [place] 1.010 (1.002-1.030) 01/19/18 18:15 Urine Protein TRACE mg/dL (NEGATIVE) 01/19/18 18:15 Urine Glucose (UA) >=1000 mg/dL (NEGATIVE) H 01/19/18 18:15 Urine Ketones 40 mg/dL (NEGATIVE) H 01/19/18 18:15 Urine Occult Blood TRACE-LYSE (NEGATIVE) 01/19/18 18:15 Urine Nitrite NEGATIVE (NEGATIVE) 01/19/18 18:15 Urine Bilirubin NEGATIVE (NEGATIVE) 01/19/18 18:15 Urine Urobilinogen 0.2 (NORMAL) E.U./dL (NORMAL) 01/19/18 18:15 Ur Leukocyte Esterase NEGATIVE (NEGATIVE) 01/19/18 18:15 Ur Microscopic Review NOT INDICATED 01/19/18 18:15 Urine Culture Comments NOT INDICATED 01/19/18 18:15 Urine HCG, Qual NEGATIVE 01/19/18 18:15 Serum Ketones NEGATIVE (NEGATIVE) 01/20/18 16:56 - Procedures Procedures: Procedures ENDO EXCISION/DEST OF LESION OR TISSUE OF STOMACH (03/30/14) ENDOSC POLYPECTOMY OF LG INTEST (03/30/14) INSERTION OF INFUSION DEV INTO SUP VENA CAVA, PERC APPROACH (10/01/16) ABX Reporting Has patient been on IV antibiotics over the past 48 hours?: Yes
[2018-01-20] MEDS: LORazepam 0.5 MG TABLET PO PRN (20:19)
[2018-01-20] MEDS: AMITRIPTYLINE 25 MG TABLET PO SCH (20:19)
[2018-01-20] MEDS: ATORVASTATIN 40 MG TABLET PO SCH (20:19)
[2018-01-21] MEDS: MORPHINE 2 MG/ML SYRINGE IVP PRN ×12 (00:18→23:09)
[2018-01-21] MEDS: SODIUM CHLORIDE FLUSH 0.9% 10 ML SYRINGE IVP SCH ×4 (00:18→16:45)
[2018-01-21] MEDS: SODIUM CHLORIDE FLUSH 0.9% 10 ML SYRINGE IVP PRN ×4 (02:34→23:08)
[2018-01-21 05:20] LABS: EOSINOPHILS # (AUTO) 0.1 10^3/uL (0.0-0.7); EOSINOPHILS % (AUTO) 2.2 %; LYMPHOCYTES % (AUTO) 28.6 %; MEAN PLATELET VOLUME 7.5 fL (7.9-10.8); MONOCYTES # (AUTO) 0.3 10^3/uL (0.0-1.0); MONOCYTES % (AUTO) 8.1 %; NEUTROPHILS # (AUTO) 2.2 10^3/uL (1.5-6.6); NEUTROPHILS % (AUTO) 60.1 %; PLT - PLATELET COUNT 228 10^3/uL (130-450); RED BLOOD COUNT 3.64 10^6/uL (4.20-5.40); RED CELL DISTRIBUTION WIDTH 12.9 % (12.0-15.0); WHITE BLOOD COUNT 3.7 x10^3/uL (4.8-10.8)
[2018-01-21 05:30] LABS: ALBUMIN 2.6 g/dL (3.2-5.5); ALBUMIN/GLOBULIN RATIO 0.7 (1.0-2.2); ALKALINE PHOSPHATASE 142 IU/L (42-121); ALT ALANINE AMINOTRANSFERASE 20 IU/L (10-60); AST ASPARTATE AMINOTRANSFERASE 19 IU/L (10-42); BILIRUBIN,TOTAL 0.7 mg/dL (0.2-1.0); BUN - BLOOD UREA NITROGEN 16 mg/dL (6-20); CARBON DIOXIDE - CO2 26 mmol/L (21-32); CHLORIDE 100 mmol/L (101-111); CREATININE 0.6 mg/dL (0.4-1.0); GFR - MDRD 111 (>89); GLUCOSE 407 mg/dL (70-100); PHOSPHORUS 3.2 mg/dL (2.5-4.6); SODIUM 133 mmol/L (135-145); TOTAL PROTEIN 6.5 g/dL (6.7-8.2)
[2018-01-21 05:38] LABS: KETONES, SERUM (ACETEST) SMALL (NEGATIVE)
[2018-01-21] MEDS: PANTOPRAZOLE 40 MG VIAL IVP SCH (06:58)
[2018-01-21] MEDS: LEVOTHYROXINE 125 MCG TABLET PO SCH (06:58)
[2018-01-21] MEDS: INSULIN ASPART 300 UNIT/3 ML PEN SUBQ SCH ×4 (08:37→21:13)
[2018-01-21] MEDS: INSULIN GLARGINE 300 UNIT/3 ML PEN SUBQ SCH ×2 (08:37→21:12)
[2018-01-21] MEDS: ENOXAPARIN 40 MG/0.4 ML SYRINGE SUBQ SCH (08:56)
[2018-01-21] MEDS: ASPIRIN EC 81 MG TABLET PO SCH (08:56)
[2018-01-21 08:57] LABS: FOLATE 8.73 ng/mL (5.90 - >24.8)
[2018-01-21] MEDS: VENLAFAXINE ER 75 MG CAPSULE PO SCH (08:57)
[2018-01-21] MEDS: SPIRONOLACTONE 25 MG TABLET PO SCH (08:57)
[2018-01-21] MEDS: METOPROLOL SUCCINATE 25 MG TABLET PO SCH (08:57)
[2018-01-21] MEDS: LISINOPRIL 20 MG TABLET PO SCH (08:57)
[2018-01-21] MEDS: D5.45NS W/20 MEQ KCL 1,000 ML IV SCH ×2 (09:00→17:32)
[2018-01-21] MEDS: cefTRIAXone 1 GM in SODIUM CHLORIDE 0.9% MINIBAG 100 ML IV SCH ×2 (09:00→21:42)
--- NOTE | 2018-01-21 15:12 | PROVIDER PROGRESS NOTE ---
Subjective - Prog Note Date Prog Note Date: 01/21/18 Prog Note Time: 13:00 - Subjective Pt reports feeling: Improved Subjective: The patient says she feels a little bit more energy. She denies any pain, fever , chills, shortness of breath, nausea or vomiting. She denies any new problems. Current Medications - Current Medications Current Medications: Active Medications Generic Name Dose Route Start Last Admin Trade Name Freq PRN Reason Stop Dose Admin Acetaminophen 650 mg 01/19/18 20:17 Tylenol PO Q4HR PRN Pain 1 to 4 Amitriptyline HCl 50 mg 01/19/18 21:00 01/20/18 20:19 Elavil PO 50 mg QPM ADALBERTO Administration Aspirin 81 mg 01/20/18 09:00 01/21/18 08:56 Ecotrin PO 81 mg DAILY ADALBERTO Administration Atorvastatin Calcium 80 mg 01/19/18 21:00 01/20/18 20:19 Lipitor PO 80 mg QPM ADALBERTO Administration Enoxaparin Sodium 40 mg 01/20/18 09:00 01/21/18 08:56 Lovenox SUBQ 40 mg DAILY ADALBERTO Administration Ceftriaxone Sodium 1 gm/ 100 mls @ 200 mls/hr 01/21/18 08:00 01/21/18 09:30 Sodium Chloride IV Infused DAILY ADALBERTO Infusion Potassium Chloride/Dextrose/Sod Cl 1,000 mls @ 125 mls/hr 01/21/18 08:00 13:00 D5.45ns W/20 Meq Kcl IV 125 mls/hr .Q8H ADALBERTO Infusion Insulin Aspart 1 - 9 unit 01/21/18 08:00 01/21/18 12:17 Novolog SUBQ 5 unit 0800,1200,1700,2100 ADALBERTO Administration Protocol Insulin Glargine 27 unit 01/20/18 08:00 01/21/18 08:37 Lantus Solostar SUBQ 27 unit QDBREAKFAST ADALBERTO Administration Insulin Glargine 32 unit 01/20/18 21:58 01/20/18 22:10 Lantus Solostar SUBQ 32 unit QPM ADALBERTO Administration Levothyroxine Sodium 250 mcg 01/20/18 07:00 01/21/18 06:58 Synthroid PO 250 mcg QDAC ADALBERTO Administration Lisinopril 10 mg 01/20/18 09:00 01/21/18 08:57 Zestril PO 10 mg DAILY ADALBERTO Administration Lorazepam 1 mg 01/19/18 21:10 01/20/18 20:19 Ativan PO 1 mg QPM PRN Administration Insomnia Metoprolol Succinate 25 mg 01/20/18 09:00 01/21/18 08:57 Toprol Xl PO 25 mg DAILY ADALBERTO Administration Morphine Sulfate 2 mg 01/19/18 20:17 01/21/18 13:05 Morphine IVP 2 mg Q2H PRN Administration Pain 8 to 10 Ondansetron HCl 4 mg 01/19/18 20:17 Zofran Inj IVP Q6HR PRN Nausea / Vomiting Pantoprazole Sodium 40 mg 01/20/18 07:00 01/21/18 06:58 Protonix IVP 40 mg QDAC ADALBERTO Administration Prochlorperazine Edisylate 10 mg 01/19/18 20:17 Compazine Inj IVP Q6HR PRN Nausea / Vomiting Promethazine HCl 25 mg 01/19/18 20:17 Phenergan Inj IM Q6HR PRN Nausea / Vomiting Sodium Chloride 10 ml 01/20/18 01:00 01/21/18 08:57 Normal Saline Flush 0.9% IVP 10 ml 0100,0900,1700 ADALBERTO Administration Sodium Chloride 10 ml 01/19/18 20:17 01/21/18 06:58 Normal Saline Flush 0.9% IVP 10 ml PRN PRN Administration NEEDED PER PROVIDER ORDERS Spironolactone 25 mg 01/20/18 09:00 01/21/18 08:57 Aldactone PO 25 mg DAILY ADALBERTO Administration Venlafaxine HCl 150 mg 01/20/18 09:00 01/21/18 08:57 Effexor Er PO 150 mg DAILY ADALBERTO Administration Insulin Glargine,Hum.rec.anlog [Lantus] 27 unit SQ DAILY 05/24/13 Lorazepam [Ativan] 1 mg PO QPM PRN 08/29/13 Insulin Glargine,Hum.rec.anlog [Lantus Solostar] 32 units SUBQ QPM 09/05/13 Amitriptyline [Elavil] 50 mg PO QPM 07/03/14 Spironolactone 25 mg PO DAILY 04/11/17 Aspirin [Aspirin EC] 81 mg PO DAILY 10/08/17 Furosemide 80 mg PO DAILY 10/08/17 Levothyroxine Sodium 250 mcg PO QDAC 10/08/17 Metoprolol Succinate 25 mg PO DAILY 10/08/17 Insulin Lispro [Humalog] 10 - 20 unit SUBQ TIDWM 12/28/17 Atorvastatin Calcium [Lipitor] 80 mg PO QPM 01/20/18 Lansoprazole [Prevacid] 30 mg PO BIDAC 01/20/18 Lisinopril [Zestril] 10 mg PO DAILY 01/20/18 Nitroglycerin [Nitrostat] 0.4 mg SL Q5MIN PRN 01/20/18 Venlafaxine HCl [Venlafaxine HCl ER] 150 mg PO DAILY 01/20/18 Objective - Vital Signs/Intake & Output Reviewed Vital Signs: Yes Vital Signs: Vital Signs Pulse Resp BP Pulse Ox 01/21/18 14:00 99 18 145/76 H 98 01/21/18 12:47 100 18 146/67 H 98 Intake & Output: Intake & Output 01/18/18 01/19/18 01/20/18 01/21/18 23:59 23:59 23:59 23:59 Intake Total 7558.302 9539.039 2039.583 Output Total 1000 4350 1750 Balance 11.741 -203.961 289.583 - Objective General Appearance: positive: No acute distress, Alert Eyes Bilateral: positive: Normal inspection, PERRL, EOMI, No lid inflammation, Conjunctivae nml, No scleral icterus ENT: positive: ENT inspection nml, Pharynx nml, No signs of dehydration Neck: positive: Nml inspection, Thyroid nml, No JVD, Trachea midline. negative : Thyromegaly Respiratory: positive: Chest non-tender, No respiratory distress, Breath sounds nml. negative: Wheezes, Rales, Rhonchi Cardiovascular: positive: Regular rate & rhythm, No murmur, No gallop Abdomen: positive: Non-tender, No organomegaly, Nml bowel sounds, No distention. negative: Guarding, Rebound Back: positive: Nml inspection. negative: CVA tenderness (R), CVA tenderness (L ) Skin: positive: Color nml, No rash, Warm, Dry. negative: Cyanosis Extremities: positive: Non-tender, Full ROM, Nml appearance, No pedal edema Neurologic/Psychiatric: positive: Oriented x3, CN's nml (2-12), Motor nml, Sensation nml, Mood/affect nml - Lab Results Fish Bones: 01/21/18 05:00 01/21/18 05:00 Other Labs: Lab Results x24hrs 01/21/18 01/21/18 01/21/18 Range/Units 11:55 07:44 05:30 WBC (4.8-10.8) x10^3/uL RBC (4.20-5.40) 10^6/uL Hgb (12.0-16.0) g/dL Hct (37.0-47.0) % MCV (81.0-99.0) fL MCH (27.0-31.0) pg MCHC (32.0-36.0) g/dL RDW (12.0-15.0) % Plt Count (130-450) 10^3/uL MPV (7.9-10.8) fL Neut # (Auto) (1.5-6.6) 10^3/uL Lymph # (Auto) (1.5-3.5) 10^3/uL [place] # (Auto) (0.0-1.0) 10^3/uL Eos # (Auto) (0.0-0.7) 10^3/uL Baso # (Auto) (0.0-0.1) 10^3/uL Absolute Nucleated RBC x10^3/uL Nucleated RBC % /100WBC Sodium (135-145) mmol/L Potassium (3.5-5.0) mmol/L Chloride (101-111) mmol/L Carbon Dioxide (21-32) mmol/L Anion Gap (6-13) BUN (6-20) mg/dL Creatinine (0.4-1.0) mg/dL Estimated GFR (MDRD) (>89) Glucose (70-100) mg/dL POC Whole Bld Glucose 241 H 352 H (70 - 100) mg/dL Calcium (8.5-10.3) mg/dL Phosphorus (2.5-4.6) mg/dL Magnesium (1.7-2.8) mg/dL Total Bilirubin (0.2-1.0) mg/dL AST (10-42) IU/L ALT (10-60) IU/L Alkaline Phosphatase (42-121) IU/L Total Protein (6.7-8.2) g/dL Albumin (3.2-5.5) g/dL Globulin (2.1-4.2) g/dL Albumin/Globulin Ratio (1.0-2.2) Vitamin B12 210 (180-914) pg/mL Folate 8.73 (5.90 - >24.8) ng/mL Serum Ketones (NEGATIVE) 01/21/18 01/21/18 01/20/18 Range/Units 05:00 05:00 20:05 WBC 3.7 L (4.8-10.8) x10^3/uL RBC 3.64 L (4.20-5.40) 10^6/uL Hgb 12.0 (12.0-16.0) g/dL Hct 36.4 L (37.0-47.0) % MCV 100.0 H (81.0-99.0) fL MCH 33.0 H (27.0-31.0) pg MCHC 33.0 (32.0-36.0) g/dL RDW 12.9 (12.0-15.0) % Plt Count 228 (130-450) 10^3/uL MPV 7.5 L (7.9-10.8) fL Neut # (Auto) 2.2 (1.5-6.6) 10^3/uL Lymph # (Auto) 1.0 L (1.5-3.5) 10^3/uL [place] # (Auto) 0.3 (0.0-1.0) 10^3/uL Eos # (Auto) 0.1 (0.0-0.7) 10^3/uL Baso # (Auto) 0.0 (0.0-0.1) 10^3/uL Absolute Nucleated RBC 0.00 x10^3/uL Nucleated RBC % 0.1 /100WBC Sodium 133 L (135-145) mmol/L Potassium 4.6 (3.5-5.0) mmol/L Chloride 100 L (101-111) mmol/L Carbon Dioxide 26 (21-32) mmol/L Anion Gap 7.0 (6-13) BUN 16 (6-20) mg/dL Creatinine 0.6 (0.4-1.0) mg/dL Estimated GFR (MDRD) 111 (>89) Glucose 407 H (70-100) mg/dL POC Whole Bld Glucose (70 - 100) mg/dL Calcium 8.0 L (8.5-10.3) mg/dL Phosphorus 3.2 (2.5-4.6) mg/dL Magnesium 2.0 (1.7-2.8) mg/dL Total Bilirubin 0.7 (0.2-1.0) mg/dL AST 19 (10-42) IU/L ALT 20 (10-60) IU/L Alkaline Phosphatase 142 H (42-121) IU/L Total Protein 6.5 L (6.7-8.2) g/dL Albumin 2.6 L (3.2-5.5) g/dL Globulin 3.9 (2.1-4.2) g/dL Albumin/Globulin Ratio 0.7 L (1.0-2.2) Vitamin B12 (180-914) pg/mL Folate (5.90 - >24.8) ng/mL Serum Ketones SMALL H NEGATIVE (NEGATIVE) 01/20/18 01/20/18 01/20/18 Range/Units 16:56 16:54 16:18 WBC (4.8-10.8) x10^3/uL RBC (4.20-5.40) 10^6/uL Hgb (12.0-16.0) g/dL Hct (37.0-47.0) % MCV (81.0-99.0) fL MCH (27.0-31.0) pg MCHC (32.0-36.0) g/dL RDW (12.0-15.0) % Plt Count (130-450) 10^3/uL MPV (7.9-10.8) fL Neut # (Auto) (1.5-6.6) 10^3/uL Lymph # (Auto) (1.5-3.5) 10^3/uL [place] # (Auto) (0.0-1.0) 10^3/uL Eos # (Auto) (0.0-0.7) 10^3/uL Baso # (Auto) (0.0-0.1) 10^3/uL Absolute Nucleated RBC x10^3/uL Nucleated RBC % /100WBC Sodium (135-145) mmol/L Potassium (3.5-5.0) mmol/L Chloride (101-111) mmol/L Carbon Dioxide (21-32) mmol/L Anion Gap (6-13) BUN (6-20) mg/dL Creatinine (0.4-1.0) mg/dL Estimated GFR (MDRD) (>89) Glucose (70-100) mg/dL POC Whole Bld Glucose 326 H 342 H (70 - 100) mg/dL Calcium (8.5-10.3) mg/dL Phosphorus (2.5-4.6) mg/dL Magnesium (1.7-2.8) mg/dL Total Bilirubin (0.2-1.0) mg/dL AST (10-42) IU/L ALT (10-60) IU/L Alkaline Phosphatase (42-121) IU/L Total Protein (6.7-8.2) g/dL Albumin (3.2-5.5) g/dL Globulin (2.1-4.2) g/dL Albumin/Globulin Ratio (1.0-2.2) Vitamin B12 (180-914) pg/mL Folate (5.90 - >24.8) ng/mL Serum Ketones NEGATIVE (NEGATIVE) - Diagnostic Imaging Diagnostic Imaging Results: positive: Final report reviewed Diagnostic Imaging Comments: EXAM: CHEST RADIOGRAPHY EXAM DATE: 01/19/2018 09:00 PM. CLINICAL HISTORY: Presented with DKA r/o infection. COMPARISON: None. TECHNIQUE: 1 view. FINDINGS: Lungs/Pleura: No focal opacities evident. No pleural effusion. No pneumothorax. Mediastinum: Within exam limitations, the cardiomediastinal contour is normal. Other: Left subclavian multilead pacemaker is in place. IMPRESSION: No acute intrathoracic plain film abnormality. Assessment/Plan - Problem List (1) DKA, type 1 Impression: The patient had come off of the insulin drip but her blood sugar nima this morning and after 2 blood tests which were negative for ketones her ketones came back low positive this morning. I have restarted her on IV fluids and we have also restarted her on her long-acting insulin. We will continue to manage with a sliding scale.We have replaced the patient's fluids and electrolytes and if she remains stable overnight without any ketones in the morning we will transfer her to medical surgical bed. Qualifiers: Diabetes mellitus complication detail: without coma Qualified Code(s): E10.10 - Type 1 diabetes mellitus with ketoacidosis without coma (2) Hyperlipidemia Impression: We will continue the patient on her home dosing of 80 mg of Lipitor daily (3) Depression with anxiety Impression: We will continue the patient on her home dosing of Effexor and Ativan. (4) Otitis externa Impression: We are currently treating the patient with ceftriaxone daily. Continue present care. Qualifiers: Otitis externa type: unspecified type Chronicity: acute Laterality: right Qualified Code(s): H60.501 - Unspecified acute noninfective otitis externa, right ear (5) CHF (congestive heart failure) Impression: No evidence of CHF at this time, continue furosemide, lisinopril, and metoprolol. (6) Gastroesophageal reflux disease Impression: We will continue the patient on her home dosing of Prevacid. Qualifiers: Esophagitis presence: without esophagitis Qualified Code(s): K21.9 - Gastro -esophageal reflux disease without esophagitis
[2018-01-21] MEDS: ATORVASTATIN 40 MG TABLET PO SCH (21:14)
[2018-01-21] MEDS: AMITRIPTYLINE 25 MG TABLET PO SCH (21:14)
[2018-01-21] MEDS: LORazepam 0.5 MG TABLET PO PRN (21:14)
[2018-01-22] MEDS: SODIUM CHLORIDE FLUSH 0.9% 10 ML SYRINGE IVP SCH ×3 (00:15→16:42)
[2018-01-22] MEDS: MORPHINE 2 MG/ML SYRINGE IVP PRN ×11 (01:03→22:07)
[2018-01-22] MEDS: D5.45NS W/20 MEQ KCL 1,000 ML IV SCH ×3 (01:03→16:30)
[2018-01-22 05:22] LABS: BUN - BLOOD UREA NITROGEN 16 mg/dL (6-20); CARBON DIOXIDE - CO2 26 mmol/L (21-32); CHLORIDE 103 mmol/L (101-111); CREATININE 0.5 mg/dL (0.4-1.0); GFR - MDRD 137 (>89); GLUCOSE 95 mg/dL (70-100); MEAN CORPUSCULAR HEMOGLOBIN 33.4 pg (27.0-31.0); MEAN CORPUSCULAR HGB CONC 33.5 g/dL (32.0-36.0); MEAN CORPUSCULAR VOLUME 99.5 fL (81.0-99.0); RED BLOOD COUNT 3.6 10^6/uL (4.20-5.40); SODIUM 135 mmol/L (135-145); WHITE BLOOD COUNT 3.7 x10^3/uL (4.8-10.8)
[2018-01-22 05:55] LABS: KETONES, SERUM (ACETEST) NEGATIVE (NEGATIVE)
[2018-01-22] MEDS: PANTOPRAZOLE 40 MG VIAL IVP SCH (07:07)
[2018-01-22] MEDS: SODIUM CHLORIDE FLUSH 0.9% 10 ML SYRINGE IVP PRN (07:07)
[2018-01-22] MEDS: LEVOTHYROXINE 125 MCG TABLET PO SCH (07:07)
[2018-01-22] MEDS: INSULIN ASPART 300 UNIT/3 ML PEN SUBQ SCH ×4 (08:05→21:13)
[2018-01-22] MEDS: INSULIN GLARGINE 300 UNIT/3 ML PEN SUBQ SCH ×2 (08:09→21:13)
[2018-01-22] MEDS: cefTRIAXone 1 GM in SODIUM CHLORIDE 0.9% MINIBAG 100 ML IV SCH (08:40)
[2018-01-22] MEDS: ENOXAPARIN 40 MG/0.4 ML SYRINGE SUBQ SCH (08:48)
[2018-01-22] MEDS: LISINOPRIL 20 MG TABLET PO SCH (08:49)
[2018-01-22] MEDS: METOPROLOL SUCCINATE 25 MG TABLET PO SCH (08:49)
[2018-01-22] MEDS: ASPIRIN EC 81 MG TABLET PO SCH (08:49)
[2018-01-22] MEDS: VENLAFAXINE ER 75 MG CAPSULE PO SCH (08:50)
[2018-01-22] MEDS: SPIRONOLACTONE 25 MG TABLET PO SCH (08:50)
--- NOTE | 2018-01-22 16:55 | PROVIDER PROGRESS NOTE ---
Subjective - Prog Note Date Prog Note Date: 01/22/18 Prog Note Time: 16:30 - Subjective Pt reports feeling: Improved Subjective: The patient says she feels a little better today. She denies any fever, chills , shortness of breath, or chest pain. She is eating and moving her bowels. She still does complain of some abdominal pain which is vague and she says she has some pain to her ear as well. Current Medications - Current Medications Current Medications: Active Medications Generic Name Dose Route Start Last Admin Trade Name Freq PRN Reason Stop Dose Admin Acetaminophen 650 mg 01/19/18 20:17 Tylenol PO Q4HR PRN Pain 1 to 4 Amitriptyline HCl 50 mg 01/19/18 21:00 01/21/18 21:14 Elavil PO 50 mg QPM ADALBERTO Administration Aspirin 81 mg 01/20/18 09:00 01/22/18 08:49 Ecotrin PO 81 mg DAILY ADALBERTO Administration Atorvastatin Calcium 80 mg 01/19/18 21:00 01/21/18 21:14 Lipitor PO 80 mg QPM ADALBERTO Administration Enoxaparin Sodium 40 mg 01/20/18 09:00 01/22/18 08:48 Lovenox SUBQ 40 mg DAILY ADALBERTO Administration Ceftriaxone Sodium 1 gm/ 100 mls @ 200 mls/hr 01/21/18 08:00 01/22/18 09:10 Sodium Chloride IV Infused DAILY ADALBERTO Infusion Potassium Chloride/Dextrose/Sod Cl 1,000 mls @ 125 mls/hr 01/21/18 08:00 16:30 D5.45ns W/20 Meq Kcl IV 125 mls/hr .Q8H ADALBERTO Administration Insulin Aspart 1 - 9 unit 01/21/18 08:00 01/22/18 16:41 Novolog SUBQ 5 unit 0800,1200,1700,2100 ADALBERTO Administration Protocol Insulin Glargine 27 unit 01/20/18 08:00 01/22/18 08:09 Lantus Solostar SUBQ 27 unit QDBREAKFAST ADALBERTO Administration Insulin Glargine 32 unit 01/20/18 21:58 01/21/18 21:12 Lantus Solostar SUBQ 32 unit QPM ADALBERTO Administration Levothyroxine Sodium 250 mcg 01/20/18 07:00 01/22/18 07:07 Synthroid PO 250 mcg QDAC ADALBERTO Administration Lisinopril 10 mg 01/20/18 09:00 01/22/18 08:49 Zestril PO 10 mg DAILY ADALBERTO Administration Lorazepam 1 mg 01/19/18 21:10 01/21/18 21:14 Ativan PO 1 mg QPM PRN Administration Insomnia Metoprolol Succinate 25 mg 01/20/18 09:00 01/22/18 08:49 Toprol Xl PO 25 mg DAILY ADALBERTO Administration Morphine Sulfate 2 mg 01/19/18 20:17 01/22/18 15:59 Morphine IVP 2 mg Q2H PRN Administration Pain 8 to 10 Ondansetron HCl 4 mg 01/19/18 20:17 Zofran Inj IVP Q6HR PRN Nausea / Vomiting Pantoprazole Sodium 40 mg 01/20/18 07:00 01/22/18 07:07 Protonix IVP 40 mg QDAC ADALBERTO Administration Prochlorperazine Edisylate 10 mg 01/19/18 20:17 Compazine Inj IVP Q6HR PRN Nausea / Vomiting Promethazine HCl 25 mg 01/19/18 20:17 Phenergan Inj IM Q6HR PRN Nausea / Vomiting Sodium Chloride 10 ml 01/20/18 01:00 01/22/18 16:42 Normal Saline Flush 0.9% IVP 10 ml 0100,0900,1700 ADALBERTO Administration Sodium Chloride 10 ml 01/19/18 20:17 01/22/18 07:07 Normal Saline Flush 0.9% IVP 10 ml PRN PRN Administration NEEDED PER PROVIDER ORDERS Spironolactone 25 mg 01/20/18 09:00 01/22/18 08:50 Aldactone PO 25 mg DAILY ADALBERTO Administration Venlafaxine HCl 150 mg 01/20/18 09:00 01/22/18 08:50 Effexor Er PO 150 mg DAILY ADALBERTO Administration Insulin Glargine,Hum.rec.anlog [Lantus] 27 unit SQ DAILY 05/24/13 Lorazepam [Ativan] 1 mg PO QPM PRN 08/29/13 Insulin Glargine,Hum.rec.anlog [Lantus Solostar] 32 units SUBQ QPM 09/05/13 Amitriptyline [Elavil] 50 mg PO QPM 07/03/14 Spironolactone 25 mg PO DAILY 04/11/17 Aspirin [Aspirin EC] 81 mg PO DAILY 10/08/17 Furosemide 80 mg PO DAILY 10/08/17 Levothyroxine Sodium 250 mcg PO QDAC 10/08/17 Metoprolol Succinate 25 mg PO DAILY 10/08/17 Insulin Lispro [Humalog] 10 - 20 unit SUBQ TIDWM 12/28/17 Atorvastatin Calcium [Lipitor] 80 mg PO QPM 01/20/18 Lansoprazole [Prevacid] 30 mg PO BIDAC 01/20/18 Lisinopril [Zestril] 10 mg PO DAILY 01/20/18 Nitroglycerin [Nitrostat] 0.4 mg SL Q5MIN PRN 01/20/18 Venlafaxine HCl [Venlafaxine HCl ER] 150 mg PO DAILY 01/20/18 Objective - Vital Signs/Intake & Output Reviewed Vital Signs: Yes Vital Signs: Vital Signs Temp Pulse Resp BP Pulse Ox 01/22/18 14:00 36.7 C 98 17 128/74 99 Intake & Output: Intake & Output 01/19/18 01/20/18 01/21/18 01/22/18 23:59 23:59 23:59 23:59 Intake Total 0722.819 8778.039 3965.333 3006.667 Output Total 1000 4350 2950 1450 Balance 11.741 -784.098 8560.333 1556.667 - Objective General Appearance: positive: No acute distress, Alert, Mild distress Eyes Bilateral: positive: Normal inspection, PERRL, EOMI, No lid inflammation, Conjunctivae nml, No scleral icterus ENT: positive: ENT inspection nml, Pharynx nml, No signs of dehydration Neck: positive: Nml inspection, Thyroid nml, No JVD, Trachea midline. negative : Thyromegaly Respiratory: positive: Chest non-tender, No respiratory distress, Breath sounds nml. negative: Wheezes, Rales, Rhonchi Cardiovascular: positive: Regular rate & rhythm, No murmur, No gallop Abdomen: positive: Non-tender, No organomegaly, Nml bowel sounds, No distention. negative: Guarding, Rebound Back: positive: Nml inspection. negative: CVA tenderness (R), CVA tenderness (L ) Skin: positive: Color nml, No rash, Warm, Dry. negative: Cyanosis Extremities: positive: Non-tender, Full ROM, Nml appearance, No pedal edema Neurologic/Psychiatric: positive: Oriented x3, CN's nml (2-12), Motor nml, Sensation nml, Mood/affect nml - Lab Results Fish Bones: 01/22/18 04:10 01/22/18 04:10 Other Labs: Lab Results x24hrs 01/22/18 01/22/18 01/22/18 Range/Units 16:37 11:40 08:04 WBC (4.8-10.8) x10^3/uL RBC (4.20-5.40) 10^6/uL Hgb (12.0-16.0) g/dL Hct (37.0-47.0) % MCV (81.0-99.0) fL MCH (27.0-31.0) pg MCHC (32.0-36.0) g/dL RDW (12.0-15.0) % Plt Count (130-450) 10^3/uL MPV (7.9-10.8) fL Sodium (135-145) mmol/L Potassium (3.5-5.0) mmol/L Chloride (101-111) mmol/L Carbon Dioxide (21-32) mmol/L Anion Gap (6-13) BUN (6-20) mg/dL Creatinine (0.4-1.0) mg/dL Estimated GFR (MDRD) (>89) Glucose (70-100) mg/dL POC Whole Bld Glucose 253 H 133 H 69 L (70 - 100) mg/dL Calcium (8.5-10.3) mg/dL Serum Ketones (NEGATIVE) 01/22/18 01/22/18 01/21/18 Range/Units 04:10 04:10 20:18 WBC 3.7 L (4.8-10.8) x10^3/uL RBC 3.60 L (4.20-5.40) 10^6/uL Hgb 12.0 (12.0-16.0) g/dL Hct 35.9 L (37.0-47.0) % MCV 99.5 H (81.0-99.0) fL MCH 33.4 H (27.0-31.0) pg MCHC 33.5 (32.0-36.0) g/dL RDW 13.0 (12.0-15.0) % Plt Count 237 (130-450) 10^3/uL MPV 8.0 (7.9-10.8) fL Sodium 135 (135-145) mmol/L Potassium 3.8 (3.5-5.0) mmol/L Chloride 103 (101-111) mmol/L Carbon Dioxide 26 (21-32) mmol/L Anion Gap 6.0 (6-13) BUN 16 (6-20) mg/dL Creatinine 0.5 (0.4-1.0) mg/dL Estimated GFR (MDRD) 137 (>89) Glucose 95 (70-100) mg/dL POC Whole Bld Glucose 177 H (70 - 100) mg/dL Calcium 8.0 L (8.5-10.3) mg/dL Serum Ketones NEGATIVE (NEGATIVE) 01/20/18 01/20/18 01/20/18 Range/Units 22:59 22:10 21:17 WBC (4.8-10.8) x10^3/uL RBC (4.20-5.40) 10^6/uL Hgb (12.0-16.0) g/dL Hct (37.0-47.0) % MCV (81.0-99.0) fL MCH (27.0-31.0) pg MCHC (32.0-36.0) g/dL RDW (12.0-15.0) % Plt Count (130-450) 10^3/uL MPV (7.9-10.8) fL Sodium (135-145) mmol/L Potassium (3.5-5.0) mmol/L Chloride (101-111) mmol/L Carbon Dioxide (21-32) mmol/L Anion Gap (6-13) BUN (6-20) mg/dL Creatinine (0.4-1.0) mg/dL Estimated GFR (MDRD) (>89) Glucose (70-100) mg/dL POC Whole Bld Glucose 166 H 217 H 228 H (70 - 100) mg/dL Calcium (8.5-10.3) mg/dL Serum Ketones (NEGATIVE) 06/01/20/18 01/20/18 Range/Units 20:03 19:12 18:12 WBC (4.8-10.8) x10^3/uL RBC (4.20-5.40) 10^6/uL Hgb (12.0-16.0) g/dL Hct (37.0-47.0) % MCV (81.0-99.0) fL MCH (27.0-31.0) pg MCHC (32.0-36.0) g/dL RDW (12.0-15.0) % Plt Count (130-450) 10^3/uL MPV (7.9-10.8) fL Sodium (135-145) mmol/L Potassium (3.5-5.0) mmol/L Chloride (101-111) mmol/L Carbon Dioxide (21-32) mmol/L Anion Gap (6-13) BUN (6-20) mg/dL Creatinine (0.4-1.0) mg/dL Estimated GFR (MDRD) (>89) Glucose (70-100) mg/dL POC Whole Bld Glucose 231 H 222 H 303 H (70 - 100) mg/dL Calcium (8.5-10.3) mg/dL Serum Ketones (NEGATIVE) Assessment/Plan - Problem List (1) DKA, type 1 Impression: The patient is no longer in DKA. She is off of the insulin drip and her blood sugars have been better controlled. She no longer has ketones. We will move her into a medical surgical bed at this time. Qualifiers: Diabetes mellitus complication detail: without coma Qualified Code(s): E10.10 - Type 1 diabetes mellitus with ketoacidosis without coma (2) Hyperlipidemia Impression: We will continue the patient on her home dosing of 80 mg of Lipitor daily. (3) Depression with anxiety Impression: Patient takes Effexor and Ativan at home, we will continue this while she is inpatient. (4) Otitis externa Impression: There is very little erythema left to the patient's ear. There is no significant swelling or warmth. Continue present care. Qualifiers: Otitis externa type: unspecified type Chronicity: acute Laterality: right Qualified Code(s): H60.501 - Unspecified acute noninfective otitis externa, right ear (5) CHF (congestive heart failure) Impression: No evidence of CHF at this time, continue furosemide, lisinopril, and metoprolol. (6) Gastroesophageal reflux disease Impression: We have continued the patient on her home dosing of Prevacid. There have not been any complaints of GERD. Qualifiers: Esophagitis presence: without esophagitis Qualified Code(s): K21.9 - Gastro -esophageal reflux disease without esophagitis
[2018-01-22] MEDS: LORazepam 0.5 MG TABLET PO PRN (21:09)
[2018-01-22] MEDS: AMITRIPTYLINE 25 MG TABLET PO SCH (21:09)
[2018-01-22] MEDS: ATORVASTATIN 40 MG TABLET PO SCH (21:09)
[2018-01-23] MEDS: MORPHINE 2 MG/ML SYRINGE IVP PRN ×5 (00:14→11:26)
[2018-01-23] MEDS: SODIUM CHLORIDE FLUSH 0.9% 10 ML SYRINGE IVP SCH ×2 (00:14→08:45)
[2018-01-23] MEDS: SODIUM CHLORIDE FLUSH 0.9% 10 ML SYRINGE IVP PRN ×3 (02:52→11:26)
[2018-01-23 04:49] LABS: HGB - HEMOGLOBIN 12.5 g/dL (12.0-16.0); MEAN CORPUSCULAR HEMOGLOBIN 33.1 pg (27.0-31.0); MEAN CORPUSCULAR HGB CONC 33.4 g/dL (32.0-36.0); MEAN CORPUSCULAR VOLUME 99.3 fL (81.0-99.0); MEAN PLATELET VOLUME 7.3 fL (7.9-10.8); RED BLOOD COUNT 3.77 10^6/uL (4.20-5.40); RED CELL DISTRIBUTION WIDTH 12.9 % (12.0-15.0); WHITE BLOOD COUNT 3.7 x10^3/uL (4.8-10.8)
[2018-01-23 04:54] LABS: CALCIUM 8.2 mg/dL (8.5-10.3); CREATININE 0.6 mg/dL (0.4-1.0)
[2018-01-23] MEDS: LEVOTHYROXINE 125 MCG TABLET PO SCH (06:12)
[2018-01-23] MEDS: PANTOPRAZOLE 40 MG VIAL IVP SCH (06:14)
[2018-01-23] MEDS: INSULIN ASPART 300 UNIT/3 ML PEN SUBQ SCH ×2 (07:44→11:38)
[2018-01-23] MEDS: INSULIN GLARGINE 300 UNIT/3 ML PEN SUBQ SCH ×2 (07:44→08:50)
[2018-01-23] MEDS: METOPROLOL SUCCINATE 25 MG TABLET PO SCH (08:38)
[2018-01-23] MEDS: LISINOPRIL 20 MG TABLET PO SCH (08:38)
[2018-01-23] MEDS: ASPIRIN EC 81 MG TABLET PO SCH (08:38)
[2018-01-23] MEDS: cefTRIAXone 1 GM in SODIUM CHLORIDE 0.9% MINIBAG 100 ML IV SCH (08:39)
[2018-01-23] MEDS: VENLAFAXINE ER 75 MG CAPSULE PO SCH (08:39)
[2018-01-23] MEDS: ENOXAPARIN 40 MG/0.4 ML SYRINGE SUBQ SCH (08:45)
[2018-01-23] MEDS: SPIRONOLACTONE 25 MG TABLET PO SCH (08:45)
--- NOTE | 2018-01-23 10:46 | Discharge Plan ---
Discharge Plan Disposition: 01 Home, Self Care Condition: Stable Prescriptions: Cephalexin [Keflex] 500 mg PO QID #28 capsule HYDROcod/ACETAM 5/325 [[place] 5/325] 1 each PO Q6H PRN #20 tablet PRN Reason: Pain Diet: Diabetic Activity Restrictions: Activity as Tolerated Shower Restrictions: No Driving Restrictions: No Weight Bearing: Full Weight No Smoking: If you smoke, Please STOP! Call for help. Follow-up with: Amisha Staton DO [Primary Care Provider] -
[2018-01-23 11:40] VITALS: BP 133/75
--- NOTE | 2018-01-23 11:41 | DISCHARGE SUMMARY ---
Discharge Summary Admit Date: 01/19/18 Discharge Date: 01/23/18 Discharging Provider: Silvia Espinal DO Primary Care Provider: Amisha Staton DO Code Status: Attempt Resuscitation Condition at Discharge: Stable Discharge Disposition: 01 Home, Self Care - DIAGNOSES Admission Diagnoses: 1. Diabetic ketoacidosis 2. Otitis externa 3. Acute kidney injury 4. Hyponatremia 5. Depression 6. Hypertension 7. Hypothyroidism Discharge Diagnoses with Status of Each Condition: 1. Diabetic ketoacidosis- resolved. The pt is a very brittle diabetic. 2. Otitis externa- The patient's ear is no longer showing any erythema, edema, or warmth. We will send her home on a week's supply of Keflex. 3. Acute kidney injury- Resolved, patient's creatinine today is 0.6. 4. Hyponatremia- Corrected, sodium today is 138 5. Depression- Apparently well-managed, we will send the patient home on her home dosing of venlafaxine and elavil. 6. Hypertension- Well-managed, continue furosemide, lisinopril, and metoprolol 7. Hypothyroidism- TSH was mildly elevated, pt is already on 250 mcg daily; will monitor - HPI History of Present Illness: Patient is a 37-year-old female with a past medical history significant for type 1 diabetes with multiple hospitalizations for diabetic ketoacidosis including most recently on 12/28/2017 when she also had an ovarian cyst rupture, CHF, SVT status post ablation which caused complete heart block and patient now has pacemaker, chronic chest pain, hypertension, pulmonary embolism, depression , anxiety, PTSD, panic attacks, claustrophobia, history of multiple skin infections, Graves' disease and chronic neck and back pain who presented to the emergency department with a chief complaint of nausea and vomiting. The patient states that she was in her normal state of health until just a few weeks ago when she began having pain and swelling in her right ear and saw someone at an urgent care. She states that she was diagnosed with otitis externa and placed on IV clindamycin. She states that she completed the course of antibiotics about 4 days ago and seemed to be doing better. She states that over the last few days she has began having increasing pain in the right ear and feeling as though her ear is closing off. She states that she has decreased hearing in the right ear but denies any ringing in her ear. She denies any fevers or chills. She states that for the last couple of days she has also noticed lower abdominal pain. She states that the pain occurs right after she urinates and she states that it is located in the lower abdomen and wraps around to both sides. She states that over the last day she has noticed that the pain has been occurring in her right flank. She states that when she woke up this morning her blood glucose was 150 which she states is pretty good for her. She states that later this afternoon she began feeling very thirsty and drank multiple glasses of water. She then began feeling a sensation of heartburn and she took her marijuana vape as it has made her heartburn improved in the past. She states that a few hours later she began vomiting. She states that she could not stop vomiting and when she checked her blood glucose her glucometer read high. She states that at that point she became concerned given her previous history of DKA and came into the emergency department. The patient denies any diarrhea or constipation. She denies any blood in her stools or urine. The patient does admit to chronic chest pain. She also has chronic back and neck pain which is unchanged from her baseline. Patient denies any headaches, blurred vision, runny nose, sore throat, nasal congestion, difficulty swallowing, shortness of air, orthopnea, PND, increased lower extremity swelling, dysuria, increased urinary urgency, joint swelling, joint pain, stiff neck, hair loss, new skin rash, recent unintentional weight loss, change in her appetite, night sweats or any focal neurologic deficits. On presentation to the emergency department the patient was afebrile, she was tachycardic with a heart rate in the 130s, she was hypertensive with a blood pressure of 187/114, tachypneic but was saturating well on room air. The patient's initial labs revealed a pH of 7.36 with a bicarb of 16 and an anion gap of 20. Her blood glucose was 537 and she had positive serum and urine ketones. The patient also had a creatinine of 1.1 which was elevated from her baseline of 0.7. Patient appeared quite dry on examination and had a sodium of 124 with a chloride of 88. The patient was diagnosed with diabetic ketoacidosis and admitted to the intensive care unit. Of note the patient was also found to have significant erythema in her right ear concerning for cellulitis and this is likely the factor that led to her DKA. - HOSPITAL COURSE Hospital Course: The patient was admitted to the intensive care unit on an insulin drip because she came into the emergency department in diabetic ketoacidosis. She is also found to have cellulitis and was started on IV antibiotics. Over the course of the next several days her ketoacidosis was corrected and she no longer showed any ketones. The erythema and warmth to the patient's right ear and right forearm also decreased gradually, daily, until they were completely resolved. The patient will now be discharged home with a one-week course of Keflex. - ALLERGIES Allergies/Adverse Reactions: Allergies Allergy/AdvReac Type Severity Reaction Status Date / Time sulfamethoxazole Allergy Intermediate rash/ Verified 12/28/17 13:59 [From Bactrim] adhesive Allergy Rash Verified 12/28/17 13:59 amoxicillin [Amoxicillin] Allergy unknown Verified 12/28/17 13:59 oxycodone [Oxycodone] AdvReac Intermediate hallucinate, Verified 12/28/17 13:59 vomit promethazine HCl * AdvReac Mild Nausea Verified 01/19/18 18:18 [From Phenergan] - MEDICATIONS Home Medications: Ambulatory Orders Medication Instructions Recorded Confirmed Insulin Glargine,Hum.rec.anlog 27 unit SQ DAILY 05/24/13 01/20/18 [Lantus] Lorazepam [Ativan] 1 mg PO QPM PRN 08/29/13 01/20/18 Insulin Glargine,Hum.rec.anlog 32 units SUBQ QPM 09/05/13 01/20/18 [Lantus Solostar] Amitriptyline [Elavil] 50 mg PO QPM 07/03/14 01/20/18 Cyclobenzaprine [Flexeril] 10 mg PO TID PRN #15 tablet 12/01/15 01/20/18 Spironolactone 25 mg PO DAILY 04/11/17 01/20/18 Aspirin [Aspirin EC] 81 mg PO DAILY 10/08/17 01/20/18 Furosemide 80 mg PO DAILY 10/08/17 01/20/18 Levothyroxine Sodium 250 mcg PO QDAC 10/08/17 01/20/18 Metoprolol Succinate 25 mg PO DAILY 10/08/17 01/20/18 Insulin Lispro [Humalog] 10 - 20 unit SUBQ TIDWM 12/28/17 01/20/18 Insulin Aspart [NovoLOG] 2 - 10 unit SUBQ 12/30/17 01/20/18 0800,1200,1700,2100 pen Atorvastatin Calcium [Lipitor] 80 mg PO QPM 01/20/18 01/20/18 Lansoprazole [Prevacid] 30 mg PO BIDAC 01/20/18 01/20/18 Lisinopril [Zestril] 10 mg PO DAILY 01/20/18 01/20/18 Nitroglycerin [Nitrostat] 0.4 mg SL Q5MIN PRN 01/20/18 01/20/18 Venlafaxine HCl [Venlafaxine HCl 150 mg PO DAILY 01/20/18 01/20/18 ER] Atorvastatin [Lipitor] 80 mg PO QPM tablet 01/23/18 Cephalexin [Keflex] 500 mg PO QID #28 capsule 01/23/18 HYDROcod/ACETAM 5/325 [[place] 5/325] 1 each PO Q6H PRN #20 tablet 01/23/18 Insulin Aspart [NovoLOG] 1 - 9 unit SUBQ 01/23/18 0800,1200,1700,2100 pen Insulin Glargine [Lantus Solostar] 27 unit SUBQ QDBREAKFAST pen 01/23/18 Insulin Glargine [Lantus Solostar] 32 unit SUBQ QPM pen 01/23/18 Venlafaxine ER [Effexor ER] 150 mg PO DAILY capsule 01/23/18 - PHYSICAL EXAM AT DISCHARGE General Appearance: positive: No acute distress, Alert Eyes Bilateral: positive: Normal inspection, PERRL, EOMI, No lid inflammation, Conjunctivae nml, No scleral icterus ENT: positive: ENT inspection nml, Pharynx nml, No signs of dehydration Neck: positive: Nml inspection, Thyroid nml, No JVD, Trachea midline. negative : Thyromegaly Respiratory: positive: Chest non-tender, No respiratory distress, Breath sounds nml. negative: Wheezes, Rales, Rhonchi Cardiovascular: positive: Regular rate & rhythm, No murmur, No gallop Peripheral Pulses: positive: 1+ Abdomen: positive: Non-tender, No organomegaly, Nml bowel sounds, No distention. negative: Guarding, Rebound Back: positive: Nml inspection. negative: CVA tenderness (R), CVA tenderness (L ) Skin: positive: Color nml, No rash, Warm, Dry. negative: Cyanosis Extremities: positive: Non-tender, Full ROM, Nml appearance, No pedal edema Neurologic/Psychiatric: positive: Oriented x3, CN's nml (2-12), Motor nml, Sensation nml, Mood/affect nml - LABS Result Diagrams: 01/23/18 04:35 01/23/18 04:35 - DIAGNOSTIC IMAGING Diagnostic Imaging Results: Final report reviewed - FOLLOW UP Follow Up: Follow-up with Dr. Staton in 1 week - TIME SPENT Time Spent in Discharge (Minutes): 40
== END 2018-01-23 13:13 | disposition home or self-care (01) | DRG 638 ==
LOC: ED 18:10 → ICU 20:17 → MS3 01-22 18:25
PROVIDERS: ADMIT Internal Medicine; ATTEND Hospitalist
DX: E10.10 Type 1 diabetes mellitus with ketoacidosis without coma (principal); N17.9 Acute kidney failure, unspecified; E87.1 Hypo-osmolality and hyponatremia; I44.2 Atrioventricular block, complete; H60.91 Unspecified otitis externa, right ear; F41.8 Other specified anxiety disorders; I11.0 Hypertensive heart disease with heart failure; I50.9 Heart failure, unspecified; E03.9 Hypothyroidism, unspecified; G89.29 Other chronic pain; R07.9 Chest pain, unspecified; M54.9 Dorsalgia, unspecified; M54.2 Cervicalgia; K21.9 Gastro-esophageal reflux disease without esophagitis; E78.5 Hyperlipidemia, unspecified; F43.10 Post-traumatic stress disorder, unspecified; F41.0 Panic disorder [episodic paroxysmal anxiety]; F40.240 Claustrophobia; E05.00 Thyrotoxicosis with diffuse goiter without thyrotoxic crisis or storm; Z86.19 Personal history of other infectious and parasitic diseases; Z79.4 Long term (current) use of insulin; Z79.82 Long term (current) use of aspirin; Z86.711 Personal history of pulmonary embolism; Z95.0 Presence of cardiac pacemaker
CPT/HCPCS: 36415; 71045; 80048; 80053; 81001; 81003; 81025; 82009; 82040; 82607; 82746; 82803; 82947; 83036; 83690; 83735; 84100; 84439; 84443; 84484; 85025; 85027; 87086; 87150; 93005; 96361; 96374; 96375; 99283; 99284

== ENCOUNTER 2018-03-23 20:34 | Emergency (ER) | payer MEDICAID ==
--- NOTE | 2018-03-23 20:57 | ED Physician Documentation ---
History of Present Illness - Stated complaint Stated Complaint: CP/ELEVATED BS/RT SIDE PX - Chief complaint Chief Complaint: Cardiac - History obtained from History obtained from: Patient - History of Present Illness Timing: How many days ago (2) - Additonal information Additional information: Patient is a 37 year old female with multiple co-morbidities who is presenting to the emergency department for right sided flank pain and chest pain. patient states that the chest pain started two days ago when she was in [place]. Patient came back today and developed some right sided flank pain. patient checked her blood sugar and it was 400. Review of Systems Constitutional: denies: Fever, Chills Eyes: reports: Reviewed and negative Ears: reports: Reviewed and negative Cardiac: reports: Chest pain / pressure. denies: Palpitations Respiratory: denies: Dyspnea, Cough, Wheezing GI: reports: Abdominal Pain. 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: Endometriosis, Fibroids, Other : None HEENT: None Psych: Depression, Anxiety, Bipolar disorder, Panic attacks, Post traumatic stress disorder, Claustrophobia Musculoskeletal: Gout, Chronic back pain Derm: Other - Past Surgical History Past Surgical History: Yes General: Cholecystectomy, Appendectomy, Hiatal hernia repair, Colonoscopy, EGD /BLISTER 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 MACHINE OPERATOR: Oophrectomy, Other Cardiovascular: Pacemaker, Other HEENT: Myringotomy (tubes), Tonsil/Adenoidectomy, Other - Present Medications Home Medications: Ambulatory Orders Medication Instructions Recorded Confirmed Insulin Glargine,Hum.rec.anlog 27 unit SQ DAILY 05/24/13 03/23/18 [Lantus] Lorazepam [Ativan] 1 mg PO QPM PRN 08/29/13 03/23/18 Insulin Glargine,Hum.rec.anlog 32 units SUBQ QPM 09/05/13 03/23/18 [Lantus Solostar] Amitriptyline [Elavil] 50 mg PO QPM 07/03/14 03/23/18 Cyclobenzaprine [Flexeril] 10 mg PO TID PRN #15 tablet 05/07/16 08/28/18 Spironolactone 25 mg PO DAILY 04/11/17 03/23/18 Aspirin [Aspirin EC] 81 mg PO DAILY 10/08/17 03/23/18 Furosemide 80 mg PO DAILY 10/08/17 03/23/18 Levothyroxine Sodium 250 mcg PO QDAC 10/08/17 03/23/18 Metoprolol Succinate 25 mg PO DAILY 10/08/17 03/23/18 Insulin Lispro [Humalog] 10 - 20 unit SUBQ TIDWM 12/28/17 03/23/18 Insulin Aspart [NovoLOG] 2 - 10 unit SUBQ 12/30/17 03/23/18 0800,1200,1700,2100 pen Atorvastatin Calcium [Lipitor] 80 mg PO QPM 01/20/18 03/23/18 Lansoprazole [Prevacid] 30 mg PO BIDAC 01/20/18 03/23/18 Lisinopril [Zestril] 10 mg PO DAILY 01/20/18 03/23/18 Nitroglycerin [Nitrostat] 0.4 mg SL Q5MIN PRN 01/20/18 03/23/18 Venlafaxine HCl [Venlafaxine HCl 150 mg PO DAILY 01/20/18 03/23/18 ER] Atorvastatin [Lipitor] 80 mg PO QPM tablet 01/23/18 03/23/18 Cephalexin [Keflex] 500 mg PO QID #28 capsule 01/23/18 03/23/18 HYDROcod/ACETAM 5/325 [[place] 5/325] 1 each PO Q6H PRN #20 tablet 01/23/18 Insulin Aspart [NovoLOG] 1 - 9 unit SUBQ 01/23/18 03/23/18 0800,1200,1700,2100 pen Insulin Glargine [Lantus Solostar] 27 unit SUBQ QDBREAKFAST pen 01/23/18 Insulin Glargine [Lantus Solostar] 32 unit SUBQ QPM pen 01/23/18 03/23/18 Venlafaxine ER [Effexor ER] 150 mg PO DAILY capsule 01/23/18 03/23/18 Hydrocodone/Acetaminophen [Vicodin 1 each PO Q6HR #10 tablet 03/24/18 5-300 mg Tablet] - Allergies Allergies/Adverse Reactions: Allergies Allergy/AdvReac Type Severity Reaction Status Date / Time sulfamethoxazole Allergy Intermediate rash/ Verified 03/23/18 20:43 [From Bactrim] adhesive Allergy Rash Verified 03/23/18 20:43 amoxicillin [Amoxicillin] Allergy unknown Verified 03/23/18 20:43 oxycodone [Oxycodone] AdvReac Intermediate hallucinate, Verified 03/23/18 20:43 vomit promethazine HCl * AdvReac Mild Nausea Verified 03/23/18 20:43 [From Phenergan] - Social History Does the pt smoke?: No Smoking Status: Never smoker Does the pt drink ETOH?: No Does the pt have substance abuse?: No - Immunizations Immunizations are current?: Yes - POLST Patient has POLST: No POLST Status: Full Code PD ED PE NORMAL - Vitals Vital signs reviewed: Yes - General General: Alert and oriented X 3, No acute distress - Respiratory Respiratory: No respiratory distress, Clear bilaterally - Abdomen Abdomen: Soft - Derm Derm: Normal color - Neuro Neuro: Alert and oriented X 3, sharebroker 2-12 intact, No motor deficit, Normal speech Eye Opening: Spontaneous - Psych Psych: Normal mood PD ED PE EXPANDED - HEENT HEENT: Dry mucous membranes - Cardiac Cardiac: Tachy Results - Vitals Vitals: Vital Signs - 24 hr 03/23/18 03/23/18 20:40 22:43 Temperature 36.8 C Heart Rate 108 H 104 H Respiratory 20 24 Rate Blood Pressure 160/124 H 183/93 H O2 Saturation 100 98 Oxygen O2 Source Room air - Labs Labs: Laboratory Tests 03/23/18 03/23/18 03/23/18 21:10 21:10 21:10 WBC 5.4 RBC 3.80 L Hgb 12.7 Hct 36.7 L MCV 96.7 MCH 33.4 H MCHC 34.6 RDW 12.9 Plt Count 257 MPV 7.8 L Neut # (Auto) 4.0 Lymph # (Auto) 1.0 L [place] # (Auto) 0.4 Eos # (Auto) 0.0 Baso # (Auto) 0.0 Absolute Nucleated RBC 0.00 Nucleated RBC % 0.0 PT INR APTT VBG pH VBG pCO2 VBG pO2 VBG HCO3 VBG Total CO2 VBG O2 Saturation VBG Base Excess Sodium 129 L Potassium 4.4 Chloride 94 L Carbon Dioxide 24 Anion Gap 11.0 BUN 21 H Creatinine 0.9 Estimated GFR (MDRD) 70 L Glucose 473 H POC Whole Bld Glucose Lactic Acid Calcium 8.7 Phosphorus 4.1 Magnesium 2.0 Total Bilirubin 0.8 AST 18 ALT 17 Alkaline Phosphatase 154 H Troponin I < 0.04 B-Natriuretic Peptide Total Protein 7.1 Albumin 3.1 L Globulin 4.0 Albumin/Globulin Ratio 0.8 L Lipase 34 Urine Color Urine Clarity Urine pH Ur Specific [place] Urine Protein Urine Glucose (UA) Urine Ketones Urine Occult Blood Urine Nitrite Urine Bilirubin Urine Urobilinogen Ur Leukocyte Esterase Urine RBC Urine WBC Ur Squamous Epith Cells Urine Bacteria Ur Microscopic Review Urine Culture Comments 03/23/18 03/23/18 03/23/18 21:10 21:10 21:15 WBC RBC Hgb Hct MCV MCH MCHC RDW Plt Count MPV Neut # (Auto) Lymph # (Auto) [place] # (Auto) Eos # (Auto) Baso # (Auto) Absolute Nucleated RBC Nucleated RBC % PT 10.3 INR 0.9 APTT 25.7 VBG pH 7.453 H VBG pCO2 30.9 L VBG pO2 180.4 H VBG HCO3 21.1 L VBG Total CO2 22.1 L VBG O2 Saturation 99.1 H VBG Base Excess -1.8 Sodium Potassium Chloride Carbon Dioxide Anion Gap BUN Creatinine Estimated GFR (MDRD) Glucose POC Whole Bld Glucose Lactic Acid Calcium Phosphorus Magnesium Total Bilirubin AST ALT Alkaline Phosphatase Troponin I B-Natriuretic Peptide 33 Total Protein Albumin Globulin Albumin/Globulin Ratio Lipase Urine Color Urine Clarity Urine pH Ur Specific [place] Urine Protein Urine Glucose (UA) Urine Ketones Urine Occult Blood Urine Nitrite Urine Bilirubin Urine Urobilinogen Ur Leukocyte Esterase Urine RBC Urine WBC Ur Squamous Epith Cells Urine Bacteria Ur Microscopic Review Urine Culture Comments 03/23/18 03/23/18 03/24/18 21:15 22:52 00:30 WBC RBC Hgb Hct MCV MCH MCHC RDW Plt Count MPV Neut # (Auto) Lymph # (Auto) [place] # (Auto) Eos # (Auto) Baso # (Auto) Absolute Nucleated RBC Nucleated RBC % PT INR APTT VBG pH VBG pCO2 VBG pO2 VBG HCO3 VBG Total CO2 VBG O2 Saturation VBG Base Excess Sodium Potassium Chloride Carbon Dioxide Anion Gap BUN Creatinine Estimated GFR (MDRD) Glucose POC Whole Bld Glucose 361 H Lactic Acid 1.1 Calcium Phosphorus Magnesium Total Bilirubin AST ALT Alkaline Phosphatase Troponin I B-Natriuretic Peptide Total Protein Albumin Globulin Albumin/Globulin Ratio Lipase Urine Color LT. YELLOW Urine Clarity CLEAR Urine pH 6.0 Ur Specific [place] 1.010 Urine Protein NEGATIVE Urine Glucose (UA) >=1000 H Urine Ketones 15 H Urine Occult Blood LARGE H Urine Nitrite NEGATIVE Urine Bilirubin NEGATIVE Urine Urobilinogen 0.2 (NORMAL) Ur Leukocyte Esterase NEGATIVE Urine RBC TNTC H Urine WBC 0-3 Ur Squamous Epith Cells FEW Squamous Urine Bacteria Rare Ur Microscopic Review INDICATED Urine Culture Comments NOT INDICATED - Rads (name of study) chest x-ray Radiology: Final report received (no acute process) PD MEDICAL DECISION MAKING - ED course Complexity details: reviewed old records, reviewed results, re-evaluated patient , considered differential, d/w patient ED course: Juan was seen and examined at bedside. patient was tachycardic but otherwise well appearing. labs were drawn and ekg was performed which was a paced rhythm. chest x-ray showed no acute abnormality. patient's blood work was relatively unremarkable with no signs of dka or acute cardiac disease. patient did have hematuria but no sign of infection. patient likely had a renal stone secondary to dehydration. patient was treated with ns bolus and insulin patient was treated with morphine for pain. patient was non toxic and in no distress. patient required no further work up at this time and was stable for discharge with outpatient follow up. - Sepsis Event Vital Signs: Vital Signs - 24 hr 03/23/18 03/23/18 20:40 22:43 Temperature 36.8 C Heart Rate 108 H 104 H Respiratory 20 24 Rate Blood Pressure 160/124 H 183/93 H O2 Saturation 100 98 Oxygen O2 Source Room air Departure - Departure Disposition: Home, Self Care Clinical Impression: Kidney stone on right side Condition: Good Instructions: Kidney Stones Follow-Up: Amisha Staton DO [Primary Care Provider] - As Needed Prescriptions: Hydrocodone/Acetaminophen [Vicodin 5-300 mg Tablet] 1 each PO Q6HR #10 tablet Comments: Your symptoms today are likely due to a kidney stone. The most important thing you can do is to stay well hydrated. You will also need to keep your blood sugar under better control. You can take tylenol for pain and vicoden for breakthrough pain. If your symptoms worsen or you develop fevers you will need to return for a CT and further evaluation.
[2018-03-23 21:23] LABS: BASOPHILS % (AUTO) 0.8 %; EOSINOPHILS % (AUTO) 0.7 %; HGB - HEMOGLOBIN 12.7 g/dL (12.0-16.0); MEAN CORPUSCULAR HEMOGLOBIN 33.4 pg (27.0-31.0); MEAN CORPUSCULAR HGB CONC 34.6 g/dL (32.0-36.0); MEAN CORPUSCULAR VOLUME 96.7 fL (81.0-99.0); MEAN PLATELET VOLUME 7.8 fL (7.9-10.8); MONOCYTES # (AUTO) 0.4 10^3/uL (0.0-1.0); MONOCYTES % (AUTO) 6.8 %; NEUTROPHILS % (AUTO) 73.7 %; PLT - PLATELET COUNT 257 10^3/uL (130-450); RED CELL DISTRIBUTION WIDTH 12.9 % (12.0-15.0); WHITE BLOOD COUNT 5.4 x10^3/uL (4.8-10.8)
[2018-03-23 21:30] LABS: VBG PCO2 30.9 mmHg (41-51); VBG PH 7.453 (7.31-7.41); VBG PO2 180.4 mmHg (25-47)
[2018-03-23 21:31] LABS: VBG BASE EXCESS -1.8 mmol/L (-2 - +2); VBG TOTAL CO2 22.1 mmol/L (24-29)
[2018-03-23 21:33] LABS: ALBUMIN 3.1 g/dL (3.2-5.5); ALBUMIN/GLOBULIN RATIO 0.8 (1.0-2.2); BILIRUBIN,TOTAL 0.8 mg/dL (0.2-1.0); CALCIUM 8.7 mg/dL (8.5-10.3); CREATININE 0.9 mg/dL (0.4-1.0); PHOSPHORUS 4.1 mg/dL (2.5-4.6); TOTAL PROTEIN 7.1 g/dL (6.7-8.2)
[2018-03-23 21:40] LABS: INR 0.9 (0.8-1.2); PT - PROTHROMBIN TIME 10.3 secs (9.9-12.6)
[2018-03-23] MEDS ORDERED: INSULIN REGULAR HUMAN 100 UNIT/1 ML 10 ML MDV IVP STA (21:47)
--- NOTE | 2018-03-23 21:55 | XRAY Report ---
Reason: chest pain Procedure Date: 03/23/2018 Accession Number: [id number] / [id number] Procedure: XR - Chest 1 View X-Ray CPT Code: 63657 FULL RESULT: EXAM: CHEST RADIOGRAPHY EXAM DATE: 03/23/2018 09:18 PM. CLINICAL HISTORY: Chest pain COMPARISON: 01/19/2018. TECHNIQUE: 1 view. FINDINGS: Lungs/Pleura: Lung volumes are low. Lungs are unchanged. No developing consolidative process or edema. Negative for pneumothorax. Mediastinum: Heart size is normal. Pacemaker leads overlie right atrium and right ventricle. Other: None. IMPRESSION: Negative for an acute cardiopulmonary process. RADIA
[2018-03-23] MEDS ORDERED: SODIUM CHLORIDE 0.9% 1,000 ML IV ONE (22:36)
[2018-03-23 22:57] LABS: BILIRUBIN,URINE NEGATIVE (NEGATIVE); GLUCOSE, URINE (UA) >=1000 mg/dL (NEGATIVE); KETONES,URINE (UA) 15 mg/dL (NEGATIVE); LEUKOCYTE ESTERASE, URINE NEGATIVE (NEGATIVE); NITRITE,URINE NEGATIVE (NEGATIVE); OCCULT BLOOD,URINE LARGE (NEGATIVE); PROTEIN,URINE NEGATIVE (NEGATIVE); UROBILINOGEN,URINE 0.2 (NORMAL) E.U./dL (NORMAL)
[2018-03-23 23:03] LABS: CLARITY,URINE CLEAR (CLEAR)
[2018-03-23 23:06] LABS: BACTERIA,URINE Rare /HPF (None Seen); RBC,URINE TNTC /HPF (0-5); SQUAMOUS EPITHELIAL CELL,UR FEW Squamous (<= Few)
[2018-03-23] MEDS ORDERED: MORPHINE 10 MG/ML VIAL IVP STA (23:28)
[2018-03-24 00:59] VITALS: BP 162/86
== END 2018-03-24 01:10 | disposition home or self-care (01) ==
LOC: ED 20:34
DX: N20.0 Calculus of kidney (principal); E03.9 Hypothyroidism, unspecified; E10.9 Type 1 diabetes mellitus without complications; R94.31 Abnormal electrocardiogram [ECG] [EKG]
CPT/HCPCS: 36415; 71045; 80053; 81001; 82803; 83605; 83690; 83735; 83880; 84100; 84484; 85025; 85610; 85730; 87040; 93005; 96361; 96374; 99284; J1815; 81003; 87086

== ENCOUNTER 2018-04-01 08:18 | Outpatient (CLI) | payer MEDICAID | END 2018-04-01 08:19 | disposition critical access hospital (66) | LOC: EMS 08:18 | PROVIDERS: ATTEND Surgery | DX: R07.9 Chest pain, unspecified (principal); R73.09 Other abnormal glucose | CPT/HCPCS: A0425; A0427 ==

== ENCOUNTER 2018-04-01 09:05 | Inpatient (IN) | payer MEDICAID ==
--- NOTE | 2018-04-01 09:42 | ED Physician Documentation ---
PD HPI NVD - Stated complaint Stated Complaint: ELEVATED BLOODSUGAR, HEARTBURN - Chief complaint Chief Complaint: Cardiac - History obtained from History obtained from: Patient - History of Present Illness Timing - onset: Last night, Yesterday Timing - duration: Hours Timing - details: Gradual onset, Still present Associated symptoms: Abdominal pain (epigastric), Chest pain (lower substernal) , Loss of appetite. No: Fever, Near syncope / syncope Contributing factors: Diabetes. No: Sick contact, Bad food, Travel Improved by: No: Vomiting Worsened by: Eating Similar symptoms before: Diagnosis (DKA) Recently seen: Not recently seen Review of Systems Constitutional: reports: Myalgias. denies: Fever, Chills Nose: denies: Rhinorrhea / runny nose, Congestion Throat: denies: Sore throat Cardiac: reports: Chest pain / pressure (recurrent, had it last night again and this morning - substernal and upper abd aching pain. Worse with vomiting.) Respiratory: denies: Cough GI: reports: Nausea, Vomiting. denies: Abdominal Pain, Diarrhea, Hematemesis, Bloody / black stool : denies: Dysuria, Frequency Musculoskeletal: reports: Back pain (chronic). denies: Neck pain Neurologic: reports: Generalized weakness. denies: Focal weakness, Numbness, Near syncope PD PAST MEDICAL HISTORY - Past Medical History Past Medical History: Yes Cardiovascular: Hypertension, Arrhythmia, Other Respiratory: Pneumonia, Other Neuro: None Endocrine/Autoimmune: Type 1 diabetes, HyPOthyroidism, Other GI: GERD ENDO TECH: Endometriosis, Fibroids, Other : None HEENT: None Psych: Depression, Anxiety, Bipolar disorder, Panic attacks, Post traumatic stress disorder, Claustrophobia Musculoskeletal: Gout, Chronic back pain Derm: Other - Past Surgical History Past Surgical History: Yes General: Cholecystectomy, Appendectomy, Hiatal hernia repair, Colonoscopy, EGD /ENDO TECH: Oophrectomy, Other Cardiovascular: Pacemaker, Other HEENT: Myringotomy (tubes), Tonsil/Adenoidectomy, Other - Present Medications Home Medications: Ambulatory Orders Medication Instructions Recorded Confirmed Insulin Glargine,Hum.rec.anlog 27 unit SQ DAILY 05/24/13 03/23/18 [Lantus] Lorazepam [Ativan] 1 mg PO QPM PRN 08/29/13 03/23/18 Insulin Glargine,Hum.rec.anlog 32 units SUBQ QPM 09/05/13 03/23/18 [Lantus Solostar] Amitriptyline [Elavil] 50 mg PO QPM 07/03/14 03/23/18 Cyclobenzaprine [Flexeril] 10 mg PO TID PRN #15 tablet 12/01/15 03/23/18 Spironolactone 25 mg PO DAILY 04/11/17 03/23/18 Aspirin [Aspirin EC] 81 mg PO DAILY 10/08/17 03/23/18 Furosemide 80 mg PO DAILY 10/08/17 03/23/18 Levothyroxine Sodium 250 mcg PO QDAC 10/08/17 03/23/18 Metoprolol Succinate 25 mg PO DAILY 10/08/17 03/23/18 Insulin Lispro [Humalog] 10 - 20 unit SUBQ TIDWM 12/28/17 03/23/18 Insulin Aspart [NovoLOG] 2 - 10 unit SUBQ 12/30/17 03/23/18 0800,1200,1700,2100 pen Atorvastatin Calcium [Lipitor] 80 mg PO QPM 01/20/18 03/23/18 Lansoprazole [Prevacid] 30 mg PO BIDAC 01/20/18 03/23/18 Lisinopril [Zestril] 10 mg PO DAILY 01/20/18 03/23/18 Nitroglycerin [Nitrostat] 0.4 mg SL Q5MIN PRN 01/20/18 03/23/18 Venlafaxine HCl [Venlafaxine HCl 150 mg PO DAILY 01/20/18 03/23/18 ER] Atorvastatin [Lipitor] 80 mg PO QPM tablet 01/23/18 03/23/18 Cephalexin [Keflex] 500 mg PO QID #28 capsule 01/23/18 03/23/18 HYDROcod/ACETAM 5/325 [[place] 5/325] 1 each PO Q6H PRN #20 tablet 01/23/18 Insulin Aspart [NovoLOG] 1 - 9 unit SUBQ 01/23/18 03/23/18 0800,1200,1700,2100 pen Insulin Glargine [Lantus Solostar] 27 unit SUBQ QDBREAKFAST pen 01/23/18 Insulin Glargine [Lantus Solostar] 32 unit SUBQ QPM pen 01/23/18 03/23/18 Venlafaxine ER [Effexor ER] 150 mg PO DAILY capsule 01/23/18 03/23/18 Hydrocodone/Acetaminophen [Vicodin 1 each PO Q6HR #10 tablet 03/24/18 5-300 mg Tablet] - Allergies Allergies/Adverse Reactions: Allergies Allergy/AdvReac Type Severity Reaction Status Date / Time sulfamethoxazole Allergy Intermediate rash/ Verified 03/23/18 20:43 [From Bactrim] adhesive Allergy Rash Verified 03/23/18 20:43 amoxicillin [Amoxicillin] Allergy unknown Verified 03/23/18 20:43 oxycodone [Oxycodone] AdvReac Intermediate hallucinate, Verified 03/23/18 20:43 vomit promethazine HCl * AdvReac Mild Nausea Verified 03/23/18 20:43 [From Phenergan] - Social History Does the pt smoke?: No Smoking Status: Never smoker Does the pt drink ETOH?: No Does the pt have substance abuse?: No - Immunizations Immunizations are current?: Yes - POLST Patient has POLST: No POLST Status: Full Code PD ED PE NORMAL - Vitals Vital signs reviewed: Yes - General General: Alert and oriented X 3, Well developed/nourished, Other (reptitive vomiting during initial interview. Having upper abd pains. ) - HEENT HEENT: Pharynx benign - Neck Neck: Supple, no meningeal sign, No adenopathy - Cardiac Cardiac: No murmur. No: RRR (tachycardic but regular) - Respiratory Respiratory: Clear bilaterally - Abdomen Abdomen: Normal bowel sounds, Soft, Non distended, No organomegaly, Other ( tender epigastric area without guarding nor percussion tender. ) - Female Female : Deferred - Rectal Rectal: Deferred - Back Back: No CVA TTP - Derm Derm: Normal color - Extremities Extremities: No deformity, No tenderness to palpate, Normal ROM s pain, No edema , No calf tenderness / cord - Neuro Neuro: Alert and oriented X 3, No motor deficit, Normal speech Eye Opening: Spontaneous Motor: Obeys Commands Verbal: Oriented GCS Score: 15 Results - Vitals Vitals: Vital Signs - 24 hr 04/01/18 04/01/18 09:08 10:06 Temperature 36.7 C Heart Rate 121 H 127 H Respiratory 16 19 Rate Blood Pressure 156/87 H 138/73 H O2 Saturation 96 97 Oxygen O2 Source Room air - Labs Labs: Laboratory Tests 04/01/18 04/01/18 04/01/18 10:04 10:04 10:04 WBC 11.7 H RBC 4.26 Hgb 14.1 Hct 43.5 MCV 102.0 H MCH 33.1 H MCHC 32.5 RDW 13.5 Plt Count 305 MPV 8.1 Neut # (Auto) 10.1 H Lymph # (Auto) 1.0 L [place] # (Auto) 0.5 Eos # (Auto) 0.0 Baso # (Auto) 0.1 Absolute Nucleated RBC 0.00 Nucleated RBC % 0.0 VBG pH 7.193 L VBG pCO2 17.8 L VBG pO2 86.4 H VBG HCO3 6.7 L VBG Total CO2 7.2 L VBG O2 Saturation 94.4 H VBG Base Excess -19.1 L Sodium 127 L Potassium 5.1 H Chloride 93 L Carbon Dioxide 7 L* Anion Gap 27.0 H BUN 19 Creatinine 1.1 H Estimated GFR (MDRD) 55 L Glucose 697 H* Glycated Hemoglobin Estim Average Glucose Calcium 8.6 Magnesium 1.9 Total Bilirubin 2.5 H AST 15 ALT 19 Alkaline Phosphatase 169 H Total Protein 8.0 Albumin 3.5 Globulin 4.5 H Albumin/Globulin Ratio 0.8 L Lipase 24 Serum Ketones MODERATE H 04/01/18 10:04 WBC RBC Hgb Hct MCV MCH MCHC RDW Plt Count MPV Neut # (Auto) Lymph # (Auto) [place] # (Auto) Eos # (Auto) Baso # (Auto) Absolute Nucleated RBC Nucleated RBC % VBG pH VBG pCO2 VBG pO2 VBG HCO3 VBG Total CO2 VBG O2 Saturation VBG Base Excess Sodium Potassium Chloride Carbon Dioxide Anion Gap BUN Creatinine Estimated GFR (MDRD) Glucose Glycated Hemoglobin 12.1 H Estim Average Glucose 301 H Calcium Magnesium Total Bilirubin AST ALT Alkaline Phosphatase Total Protein Albumin Globulin Albumin/Globulin Ratio Lipase Serum Ketones PD MEDICAL DECISION MAKING - ED course Complexity details: reviewed results (labs c/w DKA. ), re-evaluated patient ( less nauseated and not vomiting after some meds and fluids. ), considered differential, d/w patient - Sepsis Event Vital Signs: Vital Signs - 24 hr 04/01/18 04/01/18 09:08 10:06 Temperature 36.7 C Heart Rate 121 H 127 H Respiratory 16 19 Rate Blood Pressure 156/87 H 138/73 H O2 Saturation 96 97 Oxygen O2 Source Room air Departure - Departure Disposition: [facility] DC/Xfer Clinical Impression: Chest wall pain Nausea and vomiting Qualifiers: Vomiting type: unspecified Vomiting Intractability: intractable Qualified Code( s): R11.2 - Nausea with vomiting, unspecified DKA, type 1 Qualifiers: Diabetes mellitus complication detail: without coma Qualified Code(s): E10.10 - Type 1 diabetes mellitus with ketoacidosis without coma Condition: Stable Record reviewed to determine appropriate education?: Yes Discharge Date/Time: 04/01/18 11:44
[2018-04-01] MEDS ORDERED: ONDANSETRON 4 MG/2 ML VIAL IVP STA ×2 (09:43→10:29)
[2018-04-01] MEDS ORDERED: SODIUM CHLORIDE 0.9% 1,000 ML IV ONE ×2 (09:43→10:33)
[2018-04-01] MEDS ORDERED: INSULIN REGULAR HUMAN 100 UNIT/1 ML 10 ML MDV IVP STA (09:44)
[2018-04-01] MEDS ORDERED: MORPHINE 10 MG/ML VIAL IVP STA (09:45)
[2018-04-01 10:20] LABS: KETONES, SERUM (ACETEST) MODERATE (NEGATIVE)
[2018-04-01 10:21] LABS: BASOPHILS # (AUTO) 0.1 10^3/uL (0.0-0.1); BASOPHILS % (AUTO) 0.5 %; EOSINOPHILS % (AUTO) 0.2 %; HGB - HEMOGLOBIN 14.1 g/dL (12.0-16.0); LYMPHOCYTES % (AUTO) 8.7 %; MEAN CORPUSCULAR HEMOGLOBIN 33.1 pg (27.0-31.0); MEAN CORPUSCULAR HGB CONC 32.5 g/dL (32.0-36.0); MEAN PLATELET VOLUME 8.1 fL (7.9-10.8); MONOCYTES # (AUTO) 0.5 10^3/uL (0.0-1.0); MONOCYTES % (AUTO) 4.6 %; NEUTROPHILS # (AUTO) 10.1 10^3/uL (1.5-6.6); PLT - PLATELET COUNT 305 10^3/uL (130-450); RED BLOOD COUNT 4.26 10^6/uL (4.20-5.40); RED CELL DISTRIBUTION WIDTH 13.5 % (12.0-15.0); WHITE BLOOD COUNT 11.7 x10^3/uL (4.8-10.8)
[2018-04-01 10:22] LABS: VBG BASE EXCESS -19.1 mmol/L (-2 - +2); VBG PCO2 17.8 mmHg (41-51); VBG PH 7.193 (7.31-7.41); VBG PO2 86.4 mmHg (25-47); VBG TOTAL CO2 7.2 mmol/L (24-29)
[2018-04-01] MEDS ORDERED: FAMOTIDINE 20 MG/2 ML VIAL IVP STA (10:29)
[2018-04-01 10:30] LABS: ALBUMIN 3.5 g/dL (3.2-5.5); ALBUMIN/GLOBULIN RATIO 0.8 (1.0-2.2); ALKALINE PHOSPHATASE 169 IU/L (42-121); ALT ALANINE AMINOTRANSFERASE 19 IU/L (10-60); AST ASPARTATE AMINOTRANSFERASE 15 IU/L (10-42); BILIRUBIN,TOTAL 2.5 mg/dL (0.2-1.0); BUN - BLOOD UREA NITROGEN 19 mg/dL (6-20); CALCIUM 8.6 mg/dL (8.5-10.3); CHLORIDE 93 mmol/L (101-111); CREATININE 1.1 mg/dL (0.4-1.0); GFR - MDRD 55 (>89); LIPASE 24 U/L (22-51); MAGNESIUM 1.9 mg/dL (1.7-2.8); SODIUM 127 mmol/L (135-145)
[2018-04-01 10:31] LABS: CARBON DIOXIDE - CO2 7 mmol/L (21-32); GLUCOSE 697 mg/dL (70-100)
[2018-04-01] MEDS ORDERED: INSULIN REGULAR HUMAN 100 UNIT in SODIUM CHLORIDE 0.9% 100ML 99 ML IV SCH ×2 (11:00→11:22)
[2018-04-01] MEDS ORDERED: ONDANSETRON 4 MG/2 ML VIAL IVP PRN (11:17)
[2018-04-01] MEDS ORDERED: ACETAMINOPHEN 325 MG TABLET PO PRN (11:17)
[2018-04-01] MEDS ORDERED: oxyCODONE 5 MG TABLET PO PRN (11:17)
[2018-04-01] MEDS ORDERED: ONDANSETRON ODT 4 MG TABLET TL PRN (11:17)
[2018-04-01] MEDS ORDERED: NITROGLYCERIN SL 0.4 MG TABLET SL PRN (11:21)
[2018-04-01] MEDS ORDERED: CYCLOBENZAPRINE 10 MG TABLET PO PRN (11:21)
[2018-04-01 11:59] LABS: HEMOGLOBIN A1C 1.63 g/dL; HEMOGLOBIN A1C % 12.1 % (4.6-6.2)
[2018-04-01] MEDS ORDERED: D5NS W/20 MEQ KCL 1,000 ML IV SCH (12:00)
[2018-04-01 12:19] LABS: MUDS CUTOFF CONCENTRATIONS CUTOFF CONC BELOW:
[2018-04-01 12:22] LABS: BILIRUBIN,URINE NEGATIVE (NEGATIVE); GLUCOSE, URINE (UA) 500 mg/dL (NEGATIVE); KETONES,URINE (UA) >=80 mg/dL (NEGATIVE); LEUKOCYTE ESTERASE, URINE NEGATIVE (NEGATIVE); NITRITE,URINE NEGATIVE (NEGATIVE); OCCULT BLOOD,URINE TRACE-INTA (NEGATIVE); PROTEIN,URINE TRACE mg/dL (NEGATIVE); UROBILINOGEN,URINE 0.2 (NORMAL) E.U./dL (NORMAL)
[2018-04-01 12:23] LABS: CLARITY,URINE CLEAR (CLEAR)
[2018-04-01] MEDS: ENOXAPARIN 40 MG/0.4 ML SYRINGE SUBQ SCH (12:31)
[2018-04-01 12:33] LABS: AMPHETAMINE SCREEN,URINE NEGATIVE (NEGATIVE); BENZODIAZEPINES SCREEN, URINE NEGATIVE (NEGATIVE); COCAINE SCREEN URINE NEGATIVE (NEGATIVE); METHADONE SCREEN, URINE NEGATIVE (NEGATIVE); METHAMPHETAMINES SCREEN, URINE NEGATIVE (NEGATIVE); OPIATE SCREEN, URINE NEGATIVE (NEGATIVE); OXYCODONE SCREEN, URINE NEGATIVE (NEGATIVE); PROPOXYPHENE SCREEN, URINE NEGATIVE (NEGATIVE); TRICYCLIC ANTIDEPRESSANT,URINE NEGATIVE (NEGATIVE)
[2018-04-01] MEDS: LEVOTHYROXINE 125 MCG TABLET PO SCH (12:59)
[2018-04-01 13:36] LABS: KETONES, SERUM (ACETEST) MODERATE (NEGATIVE)
[2018-04-01 13:43] LABS: BUN - BLOOD UREA NITROGEN 16 mg/dL (6-20); CALCIUM 8.5 mg/dL (8.5-10.3); CARBON DIOXIDE - CO2 12 mmol/L (21-32); CHLORIDE 101 mmol/L (101-111); GFR - MDRD 62 (>89); GLUCOSE 271 mg/dL (70-100); MAGNESIUM 1.9 mg/dL (1.7-2.8); SODIUM 133 mmol/L (135-145)
[2018-04-01] MEDS: LORazepam 0.5 MG TABLET PO PRN (13:45)
--- NOTE | 2018-04-01 14:54 | XRAY Report ---
Reason: substernal chest pain Procedure Date: 04/01/2018 Accession Number: [id number] / [id number] Procedure: XR - Chest 2 View X-Ray CPT Code: 89210 FULL RESULT: EXAM: CHEST RADIOGRAPHY EXAM DATE: 04/01/2018 02:45 PM. CLINICAL HISTORY: Substernal chest pain. COMPARISON: CHEST 1 VIEW 03/23/2018. TECHNIQUE: 2 views. FINDINGS: Lungs/Pleura: No focal opacities evident. No pleural effusion. No pneumothorax. Normal volumes. Mediastinum: Heart and mediastinal contours are unremarkable. Other: Left sided cardiac implant is in place with leads projecting over right atrium and right ventricular apex. IMPRESSION: No acute findings. RADIA
[2018-04-01] MEDS ORDERED: NS W/20 MEQ KCL 1,000 ML IV STA (14:57)
[2018-04-01] MEDS: LISINOPRIL 5 MG TABLET PO SCH (15:30)
[2018-04-01 15:35] LABS: KETONES, SERUM (ACETEST) SMALL (NEGATIVE)
[2018-04-01] MEDS: METOPROLOL SUCCINATE 25 MG TABLET PO SCH (15:35)
[2018-04-01 15:38] LABS: BUN - BLOOD UREA NITROGEN 17 mg/dL (6-20); CALCIUM 8.3 mg/dL (8.5-10.3); CARBON DIOXIDE - CO2 17 mmol/L (21-32); CHLORIDE 101 mmol/L (101-111); GFR - MDRD 62 (>89); GLUCOSE 226 mg/dL (70-100); SODIUM 134 mmol/L (135-145)
[2018-04-01] MEDS: SODIUM CHLORIDE FLUSH 0.9% 10 ML SYRINGE IVP SCH ×2 (18:07→23:21)
[2018-04-01] MEDS ORDERED: SODIUM CHLORIDE 0.9% 500 ML IV ONE (18:24)
[2018-04-01] MEDS: SODIUM CHLORIDE FLUSH 0.9% 10 ML SYRINGE IVP PRN ×3 (18:34→23:28)
[2018-04-01] MEDS: ATORVASTATIN 40 MG TABLET PO SCH (20:34)
[2018-04-01] MEDS: AMITRIPTYLINE 25 MG TABLET PO SCH (20:34)
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
[2018-04-01] MEDS ORDERED: D5NS W/20 MEQ KCL 1,000 ML IV STA (20:42)
[2018-04-01] MEDS: INSULIN ASPART 300 UNIT/3 ML PEN SUBQ SCH ×2 (20:46)
[2018-04-01] MEDS: INSULIN GLARGINE 300 UNIT/3 ML PEN SUBQ SCH (21:00)
[2018-04-01] MEDS: HYDROcod/ACETAM 5/325 MG TABLET PO PRN (22:06)
[2018-04-01] MEDS ORDERED: SODIUM CHLORIDE 0.9% 1,000 ML IV SCH (23:45)
[2018-04-02] MEDS: HYDROcod/ACETAM 5/325 MG TABLET PO PRN ×6 (01:32→22:32)
[2018-04-02] MEDS: SODIUM CHLORIDE FLUSH 0.9% 10 ML SYRINGE IVP PRN ×2 (06:14→10:34)
[2018-04-02 06:45] LABS: BASOPHILS # (AUTO) 0.1 10^3/uL (0.0-0.1); BASOPHILS % (AUTO) 0.8 %; EOSINOPHILS % (AUTO) 0.7 %; LYMPHOCYTES # (AUTO) 1.2 10^3/uL (1.5-3.5); LYMPHOCYTES % (AUTO) 18.8 %; MEAN CORPUSCULAR HGB CONC 33.6 g/dL (32.0-36.0); MEAN CORPUSCULAR VOLUME 98.3 fL (81.0-99.0); MEAN PLATELET VOLUME 7.4 fL (7.9-10.8); MONOCYTES # (AUTO) 0.6 10^3/uL (0.0-1.0); MONOCYTES % (AUTO) 8.5 %; NEUTROPHILS # (AUTO) 4.6 10^3/uL (1.5-6.6); NEUTROPHILS % (AUTO) 71.2 %; PLT - PLATELET COUNT 251 10^3/uL (130-450); RED BLOOD COUNT 3.63 10^6/uL (4.20-5.40); RED CELL DISTRIBUTION WIDTH 13.5 % (12.0-15.0); WHITE BLOOD COUNT 6.5 x10^3/uL (4.8-10.8)
[2018-04-02] MEDS: PANTOPRAZOLE 40 MG TABLET PO SCH (07:45)
[2018-04-02] MEDS: LEVOTHYROXINE 125 MCG TABLET PO SCH (07:46)
[2018-04-02 08:44] LABS: ALBUMIN 2.7 g/dL (3.2-5.5); ALBUMIN/GLOBULIN RATIO 0.8 (1.0-2.2); BILIRUBIN,TOTAL 0.7 mg/dL (0.2-1.0); CALCIUM 7.4 mg/dL (8.5-10.3); CREATININE 0.7 mg/dL (0.4-1.0); TOTAL PROTEIN 6.2 g/dL (6.7-8.2)
[2018-04-02] MEDS: ASPIRIN EC 81 MG TABLET PO SCH (09:00)
[2018-04-02] MEDS: ENOXAPARIN 40 MG/0.4 ML SYRINGE SUBQ SCH (09:00)
[2018-04-02] MEDS ORDERED: VENLAFAXINE ER 75 MG CAPSULE PO SCH (09:00)
[2018-04-02] MEDS: INSULIN ASPART 300 UNIT/3 ML PEN SUBQ SCH ×5 (09:00→21:07)
[2018-04-02] MEDS: LISINOPRIL 5 MG TABLET PO SCH (09:01)
[2018-04-02] MEDS: VENLAFAXINE ER 75 MG CAPSULE PO SCH (09:01)
[2018-04-02] MEDS: METOPROLOL SUCCINATE 25 MG TABLET PO SCH (09:01)
[2018-04-02] MEDS: SODIUM CHLORIDE FLUSH 0.9% 10 ML SYRINGE IVP SCH ×2 (09:02→17:36)
[2018-04-02] MEDS: POLYETHYLENE GLYCOL 3350 17 GM PACKET PO SCH (09:02)
--- NOTE | 2018-04-02 18:38 | PROVIDER PROGRESS NOTE ---
Subjective - Prog Note Date Prog Note Date: 04/02/18 Prog Note Time: 18:36 - Subjective Pt reports feeling: Improved Subjective: she is off insulin drip since this morning and eating. Sodium is 133. Her electrolytes are relatively stable. Her fasting glucose was 268 this morning. Her troponins have been negative. She still has a small amount of ketones. White cell count is now down to 6.5. She has been eating a regular diet. Current Medications - Current Medications Current Medications: Active Medications Acetaminophen (Tylenol) 650 mg PO Q4HR PRN PRN Reason: Pain 1 to 4 Hydrocodone Bitart/Acetaminophen ([place] 5/325) 1 tab PO Q4HR PRN PRN Reason: PAIN Last Admin: 04/02/18 18:34 Dose: 1 tab Amitriptyline HCl (Elavil) 50 mg PO QPM [facility] Last Admin: 04/01/18 20:34 Dose: 50 mg Aspirin (Ecotrin) 81 mg PO DAILY [facility] Last Admin: 04/02/18 09:00 Dose: 81 mg Atorvastatin Calcium (Lipitor) 80 mg PO QPM [facility] Last Admin: 04/01/18 20:34 Dose: 80 mg Cyclobenzaprine HCl (Flexeril) 10 mg PO TID PRN PRN Reason: Spasms Enoxaparin Sodium (Lovenox) 40 mg SUBQ DAILY [facility] Last Admin: 04/02/18 09:00 Dose: 40 mg Insulin Aspart (Novolog) 1 - 9 unit SUBQ 0800,1200,1700,2100 [facility] PRN Reason: Protocol Last Admin: 04/02/18 17:36 Dose: 5 unit Insulin Glargine (Lantus Solostar) 30 unit SUBQ QPM [facility] Last Admin: 04/01/18 21:00 Dose: 30 unit Levothyroxine Sodium (Synthroid) 250 mcg PO QDAC [facility] Last Admin: 04/02/18 07:46 Dose: 250 mcg Lisinopril (Zestril) 10 mg PO DAILY [facility] Last Admin: 04/02/18 09:01 Dose: 10 mg Lorazepam (Ativan) 1 mg PO QPM PRN PRN Reason: SLEEP/ANXIETY Last Admin: 04/01/18 13:45 Dose: 1 mg Metoprolol Succinate (Toprol Xl) 25 mg PO DAILY [facility] Last Admin: 04/02/18 09:01 Dose: 25 mg Nitroglycerin (Nitrostat) 0.4 mg SL Q5MIN PRN PRN Reason: Chest Pain Ondansetron HCl (Zofran Inj) 4 mg IVP Q6HR PRN PRN Reason: Nausea / Vomiting Last Admin: 04/01/18 23:23 Dose: 4 mg Ondansetron HCl (Zofran Odt) 4 mg TL Q6HR PRN PRN Reason: Nausea / Vomiting Last Admin: 04/02/18 13:18 Dose: 4 mg Pantoprazole Sodium (Protonix) 40 mg PO QDAC [facility] Last Admin: 04/02/18 07:45 Dose: 40 mg Polyethylene Glycol (Miralax) 17 gm PO DAILY [facility] Last Admin: 04/02/18 09:02 Dose: Not Given Sodium Chloride (Normal Saline Flush 0.9%) 10 ml IVP PRN PRN PRN Reason: NEEDED PER PROVIDER ORDERS Last Admin: 04/02/18 10:34 Dose: 30 ml Sodium Chloride (Normal Saline Flush 0.9%) 10 ml IVP 0100,0900,1700 [facility] Last Admin: 04/02/18 17:36 Dose: 30 ml Venlafaxine HCl (Effexor Er) 150 mg PO DAILY [facility] Last Admin: 04/02/18 09:01 Dose: 150 mg Insulin Glargine,Hum.rec.anlog [Lantus] 27 unit SQ DAILY 05/24/13 Lorazepam [Ativan] 1 mg PO QPM PRN 08/29/13 Insulin Glargine,Hum.rec.anlog [Lantus Solostar] 32 units SUBQ QPM 09/05/13 Amitriptyline [Elavil] 50 mg PO QPM 07/03/14 Spironolactone 25 mg PO DAILY 04/11/17 Aspirin [Aspirin EC] 81 mg PO DAILY 10/08/17 Furosemide 80 mg PO DAILY 10/08/17 Levothyroxine Sodium 250 mcg PO QDAC 10/08/17 Metoprolol Succinate 25 mg PO DAILY 10/08/17 Atorvastatin Calcium [Lipitor] 80 mg PO QPM 01/20/18 Lansoprazole [Prevacid] 30 mg PO BIDAC 01/20/18 Lisinopril [Zestril] 10 mg PO DAILY 01/20/18 Nitroglycerin [Nitrostat] 0.4 mg SL Q5MIN PRN 01/20/18 Venlafaxine HCl [Venlafaxine HCl ER] 150 mg PO DAILY 01/20/18 Insulin Lispro [Humalog] 2 - 15 unit SUBQ ACHS 04/02/18 Objective - Vital Signs/Intake & Output Reviewed Vital Signs: Yes Vital Signs: Vital Signs Pulse Resp BP 04/02/18 15:00 102 H 18 127/65 Intake & Output: Intake & Output 03/30/18 03/31/18 04/01/18 04/02/18 23:59 23:59 23:59 23:59 Intake Total 0165.967 8866.333 Output Total 900 1625 Balance 817.616 143.333 - Objective General Appearance: positive: No acute distress, Alert, Other (her dad is at the bedside.She is a moderately overweight female at 96.5 kg and 5 foot 4 inches tall) Eyes Bilateral: positive: PERRL, EOMI ENT: positive: Pharynx nml Neck: positive: No JVD. negative: Stiff neck, Carotid bruit Respiratory: positive: Chest non-tender. negative: Wheezes, Rales, Rhonchi Cardiovascular: positive: Regular rate & rhythm. negative: Systolic murmur, Gallop/S4, Friction rub Abdomen: positive: Non-tender, No organomegaly, Nml bowel sounds, No distention , Other (large abd panus) Skin: positive: Warm, Dry Extremities: positive: Full ROM, No pedal edema Neurologic/Psychiatric: positive: Oriented x3, CN's nml (2-12), Motor nml - Lab Results Fish Bones: 04/02/18 06:10 04/02/18 08:15 Other Labs: Lab Results x24hrs 04/02/18 04/02/18 04/02/18 Range/Units 10:34 08:15 08:15 WBC (4.8-10.8) x10^3/uL RBC (4.20-5.40) 10^6/uL Hgb (12.0-16.0) g/dL Hct (37.0-47.0) % MCV (81.0-99.0) fL MCH (27.0-31.0) pg MCHC (32.0-36.0) g/dL RDW (12.0-15.0) % Plt Count (130-450) 10^3/uL MPV (7.9-10.8) fL Neut # (Auto) (1.5-6.6) 10^3/uL Lymph # (Auto) (1.5-3.5) 10^3/uL [place] # (Auto) (0.0-1.0) 10^3/uL Eos # (Auto) (0.0-0.7) 10^3/uL Baso # (Auto) (0.0-0.1) 10^3/uL Absolute Nucleated RBC x10^3/uL Nucleated RBC % /100WBC Sodium 133 L (135-145) mmol/L Potassium 3.8 (3.5-5.0) mmol/L Chloride 103 (101-111) mmol/L Carbon Dioxide 20 L (21-32) mmol/L Anion Gap 10.0 (6-13) BUN 11 (6-20) mg/dL Creatinine 0.7 (0.4-1.0) mg/dL Estimated GFR (MDRD) 93 (>89) Glucose 268 H (70-100) mg/dL Calcium 7.4 L (8.5-10.3) mg/dL Total Bilirubin 0.7 (0.2-1.0) mg/dL AST 14 (10-42) IU/L ALT 13 (10-60) IU/L Alkaline Phosphatase 132 H (42-121) IU/L Troponin I (<0.49) ng/mL Total Protein 6.2 L (6.7-8.2) g/dL Albumin 2.7 L (3.2-5.5) g/dL Globulin 3.5 (2.1-4.2) g/dL Albumin/Globulin Ratio 0.8 L (1.0-2.2) Serum Ketones SMALL H SMALL H (NEGATIVE) 04/02/18 04/02/18 04/02/18 Range/Units 06:10 06:10 06:10 WBC (4.8-10.8) x10^3/uL RBC (4.20-5.40) 10^6/uL Hgb (12.0-16.0) g/dL Hct (37.0-47.0) % MCV (81.0-99.0) fL MCH (27.0-31.0) pg MCHC (32.0-36.0) g/dL RDW (12.0-15.0) % Plt Count (130-450) 10^3/uL MPV (7.9-10.8) fL Neut # (Auto) (1.5-6.6) 10^3/uL Lymph # (Auto) (1.5-3.5) 10^3/uL [place] # (Auto) (0.0-1.0) 10^3/uL Eos # (Auto) (0.0-0.7) 10^3/uL Baso # (Auto) (0.0-0.1) 10^3/uL Absolute Nucleated RBC x10^3/uL Nucleated RBC % /100WBC Sodium (135-145) mmol/L Potassium (3.5-5.0) mmol/L Chloride (101-111) mmol/L Carbon Dioxide (21-32) mmol/L Anion Gap (6-13) BUN (6-20) mg/dL Creatinine (0.4-1.0) mg/dL Estimated GFR (MDRD) (>89) Glucose (70-100) mg/dL Calcium (8.5-10.3) mg/dL Total Bilirubin (0.2-1.0) mg/dL AST (10-42) IU/L ALT (10-60) IU/L Alkaline Phosphatase (42-121) IU/L Troponin I < 0.04 (<0.49) ng/mL Total Protein (6.7-8.2) g/dL Albumin 2.8 L (3.2-5.5) g/dL Globulin (2.1-4.2) g/dL Albumin/Globulin Ratio (1.0-2.2) Serum Ketones SMALL H (NEGATIVE) 04/02/18 04/02/18 04/01/18 Range/Units 06:10 01:50 23:20 WBC 6.5 (4.8-10.8) x10^3/uL RBC 3.63 L (4.20-5.40) 10^6/uL Hgb 12.0 (12.0-16.0) g/dL Hct 35.7 L (37.0-47.0) % MCV 98.3 (81.0-99.0) fL MCH 33.0 H (27.0-31.0) pg MCHC 33.6 (32.0-36.0) g/dL RDW 13.5 (12.0-15.0) % Plt Count 251 (130-450) 10^3/uL MPV 7.4 L (7.9-10.8) fL Neut # (Auto) 4.6 (1.5-6.6) 10^3/uL Lymph # (Auto) 1.2 L (1.5-3.5) 10^3/uL [place] # (Auto) 0.6 (0.0-1.0) 10^3/uL Eos # (Auto) 0.0 (0.0-0.7) 10^3/uL Baso # (Auto) 0.1 (0.0-0.1) 10^3/uL Absolute Nucleated RBC 0.00 x10^3/uL Nucleated RBC % 0.0 /100WBC Sodium (135-145) mmol/L Potassium (3.5-5.0) mmol/L Chloride (101-111) mmol/L Carbon Dioxide (21-32) mmol/L Anion Gap (6-13) BUN (6-20) mg/dL Creatinine (0.4-1.0) mg/dL Estimated GFR (MDRD) (>89) Glucose (70-100) mg/dL Calcium (8.5-10.3) mg/dL Total Bilirubin (0.2-1.0) mg/dL AST (10-42) IU/L ALT (10-60) IU/L Alkaline Phosphatase (42-121) IU/L Troponin I (<0.49) ng/mL Total Protein (6.7-8.2) g/dL Albumin (3.2-5.5) g/dL Globulin (2.1-4.2) g/dL Albumin/Globulin Ratio (1.0-2.2) Serum Ketones SMALL H SMALL H (NEGATIVE) 04/01/18 04/01/18 04/01/18 Range/Units 23:20 21:20 17:36 WBC (4.8-10.8) x10^3/uL RBC (4.20-5.40) 10^6/uL Hgb (12.0-16.0) g/dL Hct (37.0-47.0) % MCV (81.0-99.0) fL MCH (27.0-31.0) pg MCHC (32.0-36.0) g/dL RDW (12.0-15.0) % Plt Count (130-450) 10^3/uL MPV (7.9-10.8) fL Neut # (Auto) (1.5-6.6) 10^3/uL Lymph # (Auto) (1.5-3.5) 10^3/uL [place] # (Auto) (0.0-1.0) 10^3/uL Eos # (Auto) (0.0-0.7) 10^3/uL Baso # (Auto) (0.0-0.1) 10^3/uL Absolute Nucleated RBC x10^3/uL Nucleated RBC % /100WBC Sodium (135-145) mmol/L Potassium (3.5-5.0) mmol/L Chloride (101-111) mmol/L Carbon Dioxide (21-32) mmol/L Anion Gap (6-13) BUN (6-20) mg/dL Creatinine (0.4-1.0) mg/dL Estimated GFR (MDRD) (>89) Glucose (70-100) mg/dL Calcium (8.5-10.3) mg/dL Total Bilirubin (0.2-1.0) mg/dL AST (10-42) IU/L ALT (10-60) IU/L Alkaline Phosphatase (42-121) IU/L Troponin I < 0.04 (<0.49) ng/mL Total Protein (6.7-8.2) g/dL Albumin (3.2-5.5) g/dL Globulin (2.1-4.2) g/dL Albumin/Globulin Ratio (1.0-2.2) Serum Ketones SMALL H SMALL H (NEGATIVE) Assessment/Plan - Problem List (1) DKA, type 1 Impression: She presented as gradual onset abdominal pain with epigastric discomfort as well as lower substernal burning. She did not want to eat. She knows that this means her DKA is coming back so she came to the emergency room. In the emergency room she was afebrile, mildly hypertensive at 156/87. White cell count was 11.7. Normal hemoglobin. Venous pH was 7.13. Potassium was 5.1 and random glucose was 697. She was placed on an insulin drip. She is in ICU. Since yesterday she has been off the drip and gradually progressing on her diet and her sugars. Qualifiers: Diabetes mellitus complication detail: without coma Qualified Code(s): E10.10 - Type 1 diabetes mellitus with ketoacidosis without coma (2) Type 1 diabetes mellitus with hyperglycemia Impression: I reviewed her medical records through the [employer] system dating to 2012. She has anywhere from 7 to over a dozen ER encounters per year. That is not counting the 2-3 admissions per year she has. I queried her home life, how she does her insulin coverage, stressors, compliance issues. She really cannot say why she is in DKA so much. She has been requesting to go to the [facility] diabetic center. Has not had much success. Right now she has an appointment for July 26. Plan: I have faxed [facility] endocrinology clinical nursing manager a personal request to please move the patient's appointment up to sooner. (3) ARIANA (acute kidney injury) Impression: Her usual baseline creatinine is less than 0.9. On admission she was 1.1. With today's labs she is down to 0.7.
[2018-04-02] MEDS: AMITRIPTYLINE 25 MG TABLET PO SCH (21:06)
[2018-04-02] MEDS: ATORVASTATIN 40 MG TABLET PO SCH (21:07)
[2018-04-02] MEDS: INSULIN GLARGINE 300 UNIT/3 ML PEN SUBQ SCH (21:07)
[2018-04-02] MEDS: LORazepam 0.5 MG TABLET PO PRN (22:32)
[2018-04-03] MEDS: SODIUM CHLORIDE FLUSH 0.9% 10 ML SYRINGE IVP SCH ×2 (00:28→08:50)
[2018-04-03] MEDS: HYDROcod/ACETAM 5/325 MG TABLET PO PRN ×2 (03:05→07:38)
[2018-04-03] MEDS: LEVOTHYROXINE 125 MCG TABLET PO SCH (06:16)
[2018-04-03] MEDS: PANTOPRAZOLE 40 MG TABLET PO SCH (06:16)
[2018-04-03 06:40] LABS: BASOPHILS % (AUTO) 1.2 %; EOSINOPHILS # (AUTO) 0.1 10^3/uL (0.0-0.7); EOSINOPHILS % (AUTO) 1.8 %; HGB - HEMOGLOBIN 11.2 g/dL (12.0-16.0); LYMPHOCYTES # (AUTO) 1.1 10^3/uL (1.5-3.5); LYMPHOCYTES % (AUTO) 31.3 %; MEAN CORPUSCULAR HEMOGLOBIN 33.6 pg (27.0-31.0); MEAN CORPUSCULAR HGB CONC 34.6 g/dL (32.0-36.0); MEAN CORPUSCULAR VOLUME 96.9 fL (81.0-99.0); MONOCYTES # (AUTO) 0.4 10^3/uL (0.0-1.0); MONOCYTES % (AUTO) 10.7 %; PLT - PLATELET COUNT 206 10^3/uL (130-450); RED BLOOD COUNT 3.34 10^6/uL (4.20-5.40); RED CELL DISTRIBUTION WIDTH 13.4 % (12.0-15.0); WHITE BLOOD COUNT 3.5 x10^3/uL (4.8-10.8)
[2018-04-03 06:52] LABS: CALCIUM 7.6 mg/dL (8.5-10.3); CREATININE 0.5 mg/dL (0.4-1.0)
[2018-04-03] MEDS: INSULIN ASPART 300 UNIT/3 ML PEN SUBQ SCH ×2 (07:45→12:51)
[2018-04-03] MEDS: LISINOPRIL 5 MG TABLET PO SCH (08:47)
--- NOTE | 2018-04-03 08:47 | Discharge Plan ---
Discharge Plan Disposition: Home, Self Care Condition: Stable Diet: Diabetic Activity Restrictions: Activity as Tolerated Shower Restrictions: No Driving Restrictions: No Additional Instructions or Follow Up instructions: You were admitted to the hospital because of diabetic ketoacidosis. Unfortunately you have about 3-4 episodes a year now. You are also having multiple emergency room encounters for your diabetes. This is a serious issue because it will shorten your overall life span. You have an appointment with the diabetic clinic at [facility] in June of this year. At your request, I have sent him a letter asking them to move your appointment to a date more soon than that. Treatment during the stay was being placed in the ICU again. You received aggressive IV fluid management with normal saline and electrolytes such as potassium, calcium, magnesium. You were also on an insulin drip. For the last 48 hours you have been on your usual Lantus and sliding scale coverage before meals. Your glucose this morning was 107. Please see your primary care provider in the next 1-2 weeks. No Smoking: If you smoke, Please STOP! Call for help. Follow-up with: Amisha Staton DO [Primary Care Provider] -
[2018-04-03] MEDS: METOPROLOL SUCCINATE 25 MG TABLET PO SCH (08:48)
[2018-04-03] MEDS: ASPIRIN EC 81 MG TABLET PO SCH (08:48)
[2018-04-03] MEDS: VENLAFAXINE ER 75 MG CAPSULE PO SCH (08:48)
[2018-04-03] MEDS: ENOXAPARIN 40 MG/0.4 ML SYRINGE SUBQ SCH (08:49)
[2018-04-03] MEDS: POLYETHYLENE GLYCOL 3350 17 GM PACKET PO SCH (08:49)
[2018-04-03 12:43] VITALS: BP 141/75
--- NOTE | 2018-04-05 04:55 | DISCHARGE SUMMARY ---
Physician: Nia Upton MD DATE OF ADMISSION: 04/01/2018 DATE OF DISCHARGE: 04/03/2018 DISCHARGE DIAGNOSES 1. Diabetic ketoacidosis type 1. 2. Type 1 diabetes mellitus, uncontrolled, with hyperglycemia, with complications on long-term use of insulin. 3. Acute kidney injury. 4. Dehydration with hyponatremia. 5. Nausea and vomiting. DISCHARGE MEDICATIONS 1. Sublingual nitroglycerin q.5 minutes p.r.n. chest pain. 2. Elavil 50 mg p.o. q.p.m. 3. Aspirin 81 mg daily. 4. Atorvastatin 80 mg daily. 5. Lasix 80 mg daily. 6. Lantus 27 units daily in the morning and 32 units in the evening. 7. Lispro 2-15 units subcutaneous a.c. and at bedtime. 8. Prevacid 30 mg p.o. b.i.d. 9. Levothyroxine 250 mcg a day. 10. Zestril 10 mg a day. 11. Ativan 1 mg p.o. q.p.m. 12. Metoprolol succinate 25 mg p.o. daily. 13. Spironolactone 25 mg p.o. daily. 14. Venlafaxine extended release 150 mg p.o. daily. PRINCIPAL PROCEDURES 1. Chest x-ray with left-sided cardiac implant in place, with leads projecting over the right atrium and right ventricular apex. No acute pulmonary findings. 2. Insulin drip. HOSPITAL COURSE: She is a 37-year-old female who is morbidly obese. Dad lives with her to help her. She is and has had a lot of life stressors. She has had multiple complications from her diabetes that she has had since the age of 7. She has also had SVT, followed by ablation, followed by heart block, requiring pacer. She describes tremendous difficulty accessing healthcare, especially a cane splicer or diabetic specialist. She states that she is compliant with her medications and with her diet. However, in the time that she has been coming to our institution, her A1c is usually above 7%. In reviewing the records from [facility] from 2012 onwards, she has multiple encounters in the emergency room every year, and probably 2-4 admissions per year for DKA. With this current episode, she feels that there is no change in her status. There is no illness. Her father is doing well. She does not describe a URI, chest pain, chest congestion, abdominal pain, or urinary complaints. She began having abdominal pain the day before admission. It has been getting gradually progressively worse, accompanied by no appetite, some nausea and starting to have emesis. She usually presents this way with DKA, so she brought herself to the emergency room. In the emergency room, she is in DKA and is now admitted to the ICU. HOSPITAL COURSE: The patient was placed on an insulin drip. Her electrolytes were replaced as appropriate for calcium, magnesium, phosphorus, and potassium. Gradually, her anion gap became normal. It started at 27, and was 7 by the time of discharge. Acute kidney injury with a creatinine of 1.1 resolved to a creatinine of 0.5 at discharge. A1c was 12.1%. Troponins were negative x3 sets. When she first presented, her venous pH was 7.193. The patient was transitioned from IV insulin to her regular sliding scale and Lantus. Diet was resumed. She was able to tolerate it to the point of stability to then go home. I did spend some time querying what the issue may be with regard to her control of diabetes. She has had it for a very long time and has already started suffering consequences. I gently and carefully explained that diabetes is a disease that slowly kills people. It does not happen quickly but over time, such as 20-30 years if A1c is not at goal. She has had it for 30 years now and I ask if she can remember her last controlled A1c. Right now, she is disabled, lives with her father. I know it is difficult to get to the [facility] for care, but she already has an appointment with the diabetic clinic in June 2018. I submitted a letter to the diabetic education center, as well as the diabetic clinic at [facility] to please move her clinic visit to a faster date. With the nurses, she does demonstrate that she knows how to check her sugar, give herself her insulin. Greater than 30 minutes was spent in coordinating discharge. She is asked to follow up with her primary care provider, Dr. Staton, in the next 1-2 weeks. TD: 04/04/2018 19:03 CHRISSIE
== END 2018-04-03 13:15 | disposition home or self-care (01) | DRG 638 ==
LOC: EDUNIT# → ED 09:05 → ICU 11:17 → MS2 04-02 19:28
PROVIDERS: ADMIT Specialist; ATTEND Specialist
DX: E10.10 Type 1 diabetes mellitus with ketoacidosis without coma (principal); N17.9 Acute kidney failure, unspecified; E87.1 Hypo-osmolality and hyponatremia; E86.0 Dehydration; Z79.4 Long term (current) use of insulin; R11.2 Nausea with vomiting, unspecified; E66.01 Morbid (severe) obesity due to excess calories; Z68.36 Body mass index [BMI] 36.0-36.9, adult; R00.0 Tachycardia, unspecified; I10 Essential (primary) hypertension; E03.9 Hypothyroidism, unspecified; K21.9 Gastro-esophageal reflux disease without esophagitis; F31.9 Bipolar disorder, unspecified; F41.0 Panic disorder [episodic paroxysmal anxiety]; F43.10 Post-traumatic stress disorder, unspecified; F40.240 Claustrophobia; M10.9 Gout, unspecified; G89.29 Other chronic pain; M54.9 Dorsalgia, unspecified; Z79.82 Long term (current) use of aspirin; Z79.891 Long term (current) use of opiate analgesic; Z87.01 Personal history of pneumonia (recurrent); Z95.0 Presence of cardiac pacemaker
CPT/HCPCS: 36415; 71046; 80048; 80053; 80306; 81001; 81003; 82009; 82040; 82803; 82947; 83036; 83690; 83735; 84484; 85025; 87086; 87150; 93005; 96361; 96374; 96375; 96376; 99284

== ENCOUNTER 2018-05-06 13:15 | Emergency (ER) | payer MEDICAID ==
--- NOTE | 2018-05-06 14:03 | ED Physician Documentation ---
PD HPI CHEST PAIN - Stated complaint Stated Complaint: SOA/CHEST PX/ELEVATED SUGARS - Chief complaint Chief Complaint: Cardiac - History obtained from History obtained from: Patient - History of Present Illness Timing - onset: Yesterday Timing - onset during: Rest. No: Light activity, Exertion Timing - details: Gradual onset, Still present, Waxing and waning Quality: Aching, Sharp, Pain Location: Left chest Radiation: Neck, Back Improved by: Rest Worsened by: Inspiration, Palpation. No: Exertion Associated symptoms: Shortness of air, Nausea, Cough. No: Vomiting, Feeling faint / dizzy Similar symptoms before: Diagnosis (has had CAD and also pneumonia/bronchitis in the past.) Recently seen: Not recently seen Review of Systems Constitutional: denies: Fever, Chills, Myalgias Nose: reports: Congestion. denies: Rhinorrhea / runny nose Throat: reports: Sore throat Cardiac: reports: Palpitations. denies: Chest pain / pressure Respiratory: reports: Dyspnea, Cough. denies: Wheezing GI: reports: Nausea, Diarrhea (some loose stools but not watery.). denies: Abdominal Pain, Vomiting : denies: Dysuria, Frequency Skin: denies: Rash, Lesions PD PAST MEDICAL HISTORY - Past Medical History Cardiovascular: Hypertension, Arrhythmia, Other Respiratory: Pneumonia, Other Neuro: None Endocrine/Autoimmune: Type 1 diabetes (with sugars up above 250 just the last few days, was doing well the prior month or so. 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, Fibroids, Other : None HEENT: None Psych: Depression, Anxiety, Bipolar disorder, Panic attacks, Post traumatic stress disorder, Claustrophobia Musculoskeletal: Gout, Chronic back pain Derm: Other - Past Surgical History Past Surgical History: Yes General: Cholecystectomy, Appendectomy, Hiatal hernia repair, Colonoscopy, EGD /TRAVELING PHLEBOTOMIST: Oophrectomy, Other Cardiovascular: Pacemaker, Other HEENT: Myringotomy (tubes), Tonsil/Adenoidectomy, Other - Present Medications Home Medications: Ambulatory Orders Medication Instructions Recorded Confirmed Insulin Glargine,Hum.rec.anlog 27 unit SQ DAILY 05/24/13 04/01/18 [Lantus] Lorazepam [Ativan] 1 mg PO QPM PRN 08/29/13 04/01/18 Insulin Glargine,Hum.rec.anlog 32 units SUBQ QPM 09/05/13 04/01/18 [Lantus Solostar] Amitriptyline [Elavil] 50 mg PO QPM 07/03/14 04/01/18 Cyclobenzaprine [Flexeril] 10 mg PO TID PRN #15 tablet 12/01/15 04/01/18 Spironolactone 25 mg PO DAILY 04/11/17 04/01/18 Aspirin [Aspirin EC] 81 mg PO DAILY 10/08/17 04/01/18 Furosemide 80 mg PO DAILY 10/08/17 04/01/18 Levothyroxine Sodium 250 mcg PO QDAC 10/08/17 04/01/18 Metoprolol Succinate 25 mg PO DAILY 10/08/17 04/01/18 Atorvastatin Calcium [Lipitor] 80 mg PO QPM 01/20/18 04/01/18 Lansoprazole [Prevacid] 30 mg PO BIDAC 01/20/18 04/01/18 Lisinopril [Zestril] 10 mg PO DAILY 01/20/18 04/01/18 Nitroglycerin [Nitrostat] 0.4 mg SL Q5MIN PRN 01/20/18 04/01/18 Venlafaxine HCl [Venlafaxine HCl 150 mg PO DAILY 01/20/18 04/01/18 ER] Hydrocodone/Acetaminophen [Vicodin 1 each PO Q6HR #10 tablet 03/24/18 04/01/18 5-300 mg Tablet] Insulin Lispro [Humalog] 2 - 15 unit SUBQ ACHS 04/02/18 04/02/18 Doxycycline Monohydrate 100 mg PO BID #14 tablet 05/06/18 HYDROcod/ACETAM 5/325 [[place] 5/325] 1 tab PO Q6H PRN #15 tablet 05/06/18 Naproxen 375 mg PO BID #20 tablet 05/06/18 - Allergies Allergies/Adverse Reactions: Allergies Allergy/AdvReac Type Severity Reaction Status Date / Time sulfamethoxazole Allergy Intermediate rash/ Verified 05/06/18 13:31 [From Bactrim] adhesive Allergy Rash Verified 05/06/18 13:31 amoxicillin [Amoxicillin] Allergy unknown Verified 05/06/18 13:31 oxycodone [Oxycodone] AdvReac Intermediate hallucinate, Verified 05/06/18 13:31 vomit promethazine HCl * AdvReac Mild Nausea Verified 05/06/18 13:31 [From Phenergan] - Social History Does the pt smoke?: No Smoking Status: Never smoker Does the pt drink ETOH?: No Does the pt have substance abuse?: No - Immunizations Immunizations are current?: Yes - POLST Patient has POLST: No POLST Status: Full Code PD ED PE NORMAL - Vitals Vital signs reviewed: Yes - General General: Alert and oriented X 3, Well developed/nourished - HEENT HEENT: Atraumatic, Ears normal, Moist mucous membranes, Pharynx benign - Neck Neck: Supple, no meningeal sign, No bony TTP, No JVD - Cardiac Cardiac: No murmur. No: RRR (regular but mild tachy.) - Respiratory Respiratory: Clear bilaterally, Other (chest pacer pouch with no signs of infection nor local tenderness. ) - Abdomen Abdomen: Soft, Non tender - Derm Derm: Normal color, Warm and dry - Extremities Extremities: No tenderness to palpate, Normal ROM s pain, No edema, No calf tenderness / cord Results - Vitals Vitals: Vital Signs - 24 hr 05/06/18 13:28 Temperature 36.4 C L Heart Rate 106 H Respiratory 16 Rate Blood Pressure 151/92 H O2 Saturation 100 Oxygen O2 Source Room air - EKG (time done) 13:35 Rate: Rate (enter#) (99) Rhythm: Paced [place]: Normal Intervals: Normal IN QRS: Normal Ischemia: Normal ST segments. No: ST elevation c/w ischemia, ST depression - Labs Labs: Laboratory Tests 05/06/18 13:43 POC Whole Bld Glucose 248 H - Rads (name of study) chest xray Radiology: Prelim report reviewed PD MEDICAL DECISION MAKING - ED course Complexity details: considered differential (IV access hard to obtain and so given meds IM. She has normal labs and CXR. No signs of more serious cause. Presume muscular. ), d/w patient Departure - Departure Disposition: 01 Home, Self Care Clinical Impression: Pleuritic chest pain, Cough Condition: Stable Record reviewed to determine appropriate education?: Yes Instructions: ED Chest Pain Pleurisy Follow-Up: Amisha Staton DO [Primary Care Provider] - Prescriptions: Doxycycline Monohydrate 100 mg PO BID #14 tablet HYDROcod/ACETAM 5/325 [[place] 5/325] 1 tab PO Q6H PRN #15 tablet PRN Reason: Pain Naproxen 375 mg PO BID #20 tablet Comments: Since you are having some increased weight gain and leg edema, you can double your Lasix for the next 3 days or so. However it does not look like significant congestive failure in your lungs. I presume your hurting with cough and breathing is related to an infection. There is no pneumonia on x-ray but we will treated with some antibiotics and anti-inflammatories. Continue your other usual medications. Add Tylenol or hydrocodone if needed for pain. Recheck if not improved over the next few days. Discharge Date/Time: 05/06/18 16:27
[2018-05-06] MEDS ORDERED: KETOROLAC 15 MG/ML VIAL IVP STA (14:26)
[2018-05-06] MEDS ORDERED: MORPHINE 10 MG/ML VIAL IVP STA (14:26)
[2018-05-06 14:46] LABS: BASOPHILS % (AUTO) 0.5 %; EOSINOPHILS # (AUTO) 0.1 10^3/uL (0.0-0.7); EOSINOPHILS % (AUTO) 1.3 %; LYMPHOCYTES # (AUTO) 0.9 10^3/uL (1.5-3.5); LYMPHOCYTES % (AUTO) 14.6 %; MEAN CORPUSCULAR HEMOGLOBIN 32.9 pg (27.0-31.0); MEAN CORPUSCULAR HGB CONC 34.3 g/dL (32.0-36.0); MEAN CORPUSCULAR VOLUME 95.7 fL (81.0-99.0); MEAN PLATELET VOLUME 7.3 fL (7.9-10.8); MONOCYTES # (AUTO) 0.5 10^3/uL (0.0-1.0); MONOCYTES % (AUTO) 7.3 %; NEUTROPHILS # (AUTO) 4.7 10^3/uL (1.5-6.6); NEUTROPHILS % (AUTO) 76.3 %; PLT - PLATELET COUNT 297 10^3/uL (130-450); RED BLOOD COUNT 3.65 10^6/uL (4.20-5.40); RED CELL DISTRIBUTION WIDTH 12.8 % (12.0-15.0); WHITE BLOOD COUNT 6.2 x10^3/uL (4.8-10.8)
[2018-05-06 15:01] LABS: ALBUMIN 3.3 g/dL (3.2-5.5); ALBUMIN/GLOBULIN RATIO 0.7 (1.0-2.2); BILIRUBIN,TOTAL 0.5 mg/dL (0.2-1.0); CREATININE 0.6 mg/dL (0.4-1.0); MAGNESIUM 2.2 mg/dL (1.7-2.8)
--- NOTE | 2018-05-06 15:18 | XRAY Report ---
Reason: chest pain left sided Procedure Date: 05/06/2018 Accession Number: [id number] / [id number] Procedure: XR - Chest 2 View X-Ray CPT Code: 81896 FULL RESULT: EXAM: CHEST RADIOGRAPHY EXAM DATE: 05/06/2018 03:03 PM. CLINICAL HISTORY: Chest pain left sided. COMPARISON: 04/01/2018. TECHNIQUE: 2 views. FINDINGS: Lungs/Pleura: No localized infiltrate, consolidation, effusion, or pneumothorax. Mediastinum: Mild cardiomegaly. Upper lobe vessels not distended. Other: Permanent pacemaker on the left with intact leads. IMPRESSION: Mild cardiomegaly. No acute disease. RADIA
[2018-05-06] MEDS ORDERED: HYDROmorphone 1 MG/ML CARPUJECT IM STA (15:45)
[2018-05-06] MEDS ORDERED: KETOROLAC 30 MG/ML VIAL IM STA (15:45)
[2018-05-06 16:01] VITALS: BP 160/88
== END 2018-05-06 16:27 | disposition home or self-care (01) ==
LOC: ED 13:15
DX: R07.89 Other chest pain (principal); R05 Cough; R60.0 Localized edema; R63.5 Abnormal weight gain; E10.9 Type 1 diabetes mellitus without complications; I10 Essential (primary) hypertension; E03.9 Hypothyroidism, unspecified; Z95.0 Presence of cardiac pacemaker
CPT/HCPCS: 36415; 71046; 80053; 83690; 83735; 83880; 84484; 85025; 93005; 96372; 99283; J1170

== ENCOUNTER 2018-05-30 11:29 | Emergency (ER) | payer MEDICAID ==
[2018-05-30] MEDS ORDERED: INSULIN REGULAR HUMAN 100 UNIT/1 ML 10 ML MDV IVP STA ×2 (12:10→14:10)
[2018-05-30] MEDS ORDERED: KETOROLAC 60 MG/2 ML VIAL IVP STA (12:10)
[2018-05-30] MEDS ORDERED: HYDROmorphone 1 MG/ML CARPUJECT IVP STA ×3 (12:10→15:36)
[2018-05-30] MEDS ORDERED: SODIUM CHLORIDE 0.9% 1,000 ML IV ONE ×2 (12:10→13:24)
--- NOTE | 2018-05-30 12:12 | ED Physician Documentation ---
History of Present Illness - Stated complaint Stated Complaint: HIGH GLUCOSE/ABD/LEG PX - Chief complaint Chief Complaint: General - History obtained from History obtained from: Patient - History of Present Illness Timing: Other (This is a 37-year-old woman with history of brittle diabetes who presents with numerous complaints, she was visiting her Dad in the hospital a few nights ago and noticed that she developed pedal edema, that is better now but describes profound fatigue with brittle and high blood sugars with left lower quadrant pain that is similar to prior ovarian cyst. She denies nausea or vomiting. Last menses was 3 weeks ago and normal.) Review of Systems Constitutional: reports: Fatigue. denies: Fever, Chills Ears: denies: Ear pain Nose: denies: Rhinorrhea / runny nose, Congestion Respiratory: denies: Dyspnea, Cough PD PAST MEDICAL HISTORY - Past Medical History Cardiovascular: Hypertension, Arrhythmia, Other Respiratory: Pneumonia, Other Neuro: None Endocrine/Autoimmune: Type 1 diabetes (with sugars up above 250 just the last few days, was doing well the prior month or so. 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, Fibroids, Other : None HEENT: None Psych: Depression, Anxiety, Bipolar disorder, Panic attacks, Post traumatic stress disorder, Claustrophobia Musculoskeletal: Gout, Chronic back pain Derm: Other - Past Surgical History Past Surgical History: Yes General: Cholecystectomy, Appendectomy, Hiatal hernia repair, Colonoscopy, EGD /TEACHER EMOTIONALLY IMPAIRED: Oophrectomy, Other Cardiovascular: Pacemaker, Other HEENT: Myringotomy (tubes), Tonsil/Adenoidectomy, Other - Present Medications Home Medications: Ambulatory Orders Medication Instructions Recorded Confirmed Insulin Glargine,Hum.rec.anlog 27 unit SQ DAILY 05/24/13 04/01/18 [Lantus] Lorazepam [Ativan] 1 mg PO QPM PRN 08/29/13 04/01/18 Insulin Glargine,Hum.rec.anlog 32 units SUBQ QPM 09/05/13 04/01/18 [Lantus Solostar] Amitriptyline [Elavil] 50 mg PO QPM 07/03/14 04/01/18 Cyclobenzaprine [Flexeril] 10 mg PO TID PRN #15 tablet 12/01/15 04/01/18 Spironolactone 25 mg PO DAILY 04/11/17 04/01/18 Aspirin [Aspirin EC] 81 mg PO DAILY 10/08/17 04/01/18 Furosemide 80 mg PO DAILY 10/08/17 04/01/18 Levothyroxine Sodium 250 mcg PO QDAC 10/08/17 04/01/18 Metoprolol Succinate 25 mg PO DAILY 10/08/17 04/01/18 Atorvastatin Calcium [Lipitor] 80 mg PO QPM 01/20/18 04/01/18 Lansoprazole [Prevacid] 30 mg PO BIDAC 01/20/18 04/01/18 Lisinopril [Zestril] 10 mg PO DAILY 01/20/18 04/01/18 Nitroglycerin [Nitrostat] 0.4 mg SL Q5MIN PRN 01/20/18 04/01/18 Venlafaxine HCl [Venlafaxine HCl 150 mg PO DAILY 01/20/18 04/01/18 ER] Hydrocodone/Acetaminophen [Vicodin 1 each PO Q6HR #10 tablet 03/24/18 04/01/18 5-300 mg Tablet] Insulin Lispro [Humalog] 2 - 15 unit SUBQ ACHS 04/02/18 04/02/18 Doxycycline Monohydrate 100 mg PO BID #14 tablet 05/06/18 HYDROcod/ACETAM 5/325 [[place] 5/325] 1 tab PO Q6H PRN #15 tablet 05/06/18 Naproxen 375 mg PO BID #20 tablet 05/06/18 Hydrocodone/Acetaminophen 1 - 2 each PO Q6H PRN #14 tablet 05/30/18 [Hydrocodon-Acetaminophen 5-325] - Allergies Allergies/Adverse Reactions: Allergies Allergy/AdvReac Type Severity Reaction Status Date / Time sulfamethoxazole Allergy Intermediate rash/ Verified 05/06/18 13:31 [From Bactrim] adhesive Allergy Rash Verified 05/06/18 13:31 amoxicillin [Amoxicillin] Allergy unknown Verified 05/06/18 13:31 oxycodone [Oxycodone] AdvReac Intermediate hallucinate, Verified 05/06/18 13:31 vomit promethazine HCl * AdvReac Mild Nausea Verified 05/06/18 13:31 [From Phenergan] - Social History Does the pt smoke?: No Smoking Status: Never smoker Does the pt drink ETOH?: No Does the pt have substance abuse?: No - Immunizations Immunizations are current?: Yes - POLST Patient has POLST: No POLST Status: Full Code PD ED PE NORMAL - Vitals Vital signs reviewed: Yes - General General: Alert and oriented X 3, No acute distress - HEENT HEENT: PERRL, EOMI, Other (Very dry mucous membranes) - Cardiac Cardiac: No murmur, Other (Tachycardic but she is always somewhat tachycardic in the emergency department.) - Respiratory Respiratory: No respiratory distress, Clear bilaterally - Abdomen Abdomen: Normal bowel sounds, Soft, Other (Minimal left pelvic tenderness) - Back Back: No CVA TTP, No spinal TTP - Derm Derm: Normal color, Warm and dry - Extremities Extremities: Other (No significant pedal edema or calf tenderness at this juncture) - Neuro Neuro: Alert and oriented X 3, Normal speech - Psych Psych: Normal mood, Normal affect Results - Vitals Vitals: Vital Signs - 24 hr 05/30/18 05/30/18 05/30/18 11:38 14:00 15:13 Temperature 37.5 C Heart Rate 113 H 102 H 107 H Respiratory 22 18 18 Rate Blood Pressure 148/86 H 143/68 H 135/76 H O2 Saturation 99 96 97 Oxygen O2 Source Room air - Labs Labs: Laboratory Tests 05/30/18 05/30/18 05/30/18 11:43 12:05 12:05 WBC 5.7 RBC 4.01 L Hgb 13.1 Hct 38.2 MCV 95.2 MCH 32.6 H MCHC 34.3 RDW 13.0 Plt Count 216 MPV 8.0 Neut # (Auto) 4.3 Lymph # (Auto) 0.9 L [place] # (Auto) 0.4 Eos # (Auto) 0.0 Baso # (Auto) 0.0 Absolute Nucleated RBC 0.00 Nucleated RBC % 0.0 VBG pH VBG pCO2 VBG pO2 VBG HCO3 VBG Total CO2 VBG O2 Saturation VBG Base Excess Sodium 129 L Potassium Chloride 98 L Carbon Dioxide 18 L Anion Gap 13.0 BUN 14 Creatinine 0.6 Estimated GFR (MDRD) 111 Glucose 468 H POC Whole Bld Glucose 437 H Calcium 8.1 L Total Bilirubin 1.1 H AST 25 ALT 15 Alkaline Phosphatase 110 Total Protein 7.1 Albumin 3.1 L Globulin 4.0 Albumin/Globulin Ratio 0.8 L Lipase 19 L Urine Color Urine Clarity Urine pH Ur Specific [place] Urine Protein Urine Glucose (UA) Urine Ketones Urine Occult Blood Urine Nitrite Urine Bilirubin Urine Urobilinogen Ur Leukocyte Esterase Urine RBC Urine WBC Ur Squamous Epith Cells Urine Bacteria Ur Microscopic Review Urine Culture Comments Urine HCG, Qual Serum Ketones SMALL H 05/30/18 05/30/18 05/30/18 12:31 13:40 13:40 WBC RBC Hgb Hct MCV MCH MCHC RDW Plt Count MPV Neut # (Auto) Lymph # (Auto) [place] # (Auto) Eos # (Auto) Baso # (Auto) Absolute Nucleated RBC Nucleated RBC % VBG pH 7.398 VBG pCO2 32.7 L VBG pO2 50.7 H VBG HCO3 19.7 L VBG Total CO2 20.7 L VBG O2 Saturation 87.5 H VBG Base Excess -4.1 L Sodium Potassium Chloride Carbon Dioxide Anion Gap BUN Creatinine Estimated GFR (MDRD) Glucose POC Whole Bld Glucose Calcium Total Bilirubin AST ALT Alkaline Phosphatase Total Protein Albumin Globulin Albumin/Globulin Ratio Lipase Urine Color YELLOW Urine Clarity CLEAR Urine pH 6.0 Ur Specific [place] 1.015 1.015 Urine Protein TRACE Urine Glucose (UA) >=1000 H Urine Ketones 40 H Urine Occult Blood LARGE H Urine Nitrite NEGATIVE Urine Bilirubin NEGATIVE Urine Urobilinogen 0.2 (NORMAL) Ur Leukocyte Esterase NEGATIVE Urine RBC TNTC H Urine WBC 0-3 Ur Squamous Epith Cells MOD Squamous H Urine Bacteria Rare Ur Microscopic Review INDICATED Urine Culture Comments NOT INDICATED Urine HCG, Qual NEGATIVE Serum Ketones 05/30/18 05/30/18 14:02 15:11 WBC RBC Hgb Hct MCV MCH MCHC RDW Plt Count MPV Neut # (Auto) Lymph # (Auto) [place] # (Auto) Eos # (Auto) Baso # (Auto) Absolute Nucleated RBC Nucleated RBC % VBG pH VBG pCO2 VBG pO2 VBG HCO3 VBG Total CO2 VBG O2 Saturation VBG Base Excess Sodium Potassium Chloride Carbon Dioxide Anion Gap BUN Creatinine Estimated GFR (MDRD) Glucose POC Whole Bld Glucose 298 H 211 H Calcium Total Bilirubin AST ALT Alkaline Phosphatase Total Protein Albumin Globulin Albumin/Globulin Ratio Lipase Urine Color Urine Clarity Urine pH Ur Specific [place] Urine Protein Urine Glucose (UA) Urine Ketones Urine Occult Blood Urine Nitrite Urine Bilirubin Urine Urobilinogen Ur Leukocyte Esterase Urine RBC Urine WBC Ur Squamous Epith Cells Urine Bacteria Ur Microscopic Review Urine Culture Comments Urine HCG, Qual Serum Ketones - Rads (name of study) CT A/P Radiology: EMP read contemporaneously (Fatty liver with focal fatty infiltration near the falciform ligament, fibroid uterus and moderate stool) PD MEDICAL DECISION MAKING - ED course ED course: 37-year-old woman with left lower quadrant pain and uncontrolled diabetes. She is not in DKA. No other Clear acute morbidity was found other than uncontrolled diabetes. 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 In the interim, return anytime if worse or if new symptoms develop.
[2018-05-30 12:25] LABS: BASOPHILS % (AUTO) 0.8 %; EOSINOPHILS % (AUTO) 0.8 %; HGB - HEMOGLOBIN 13.1 g/dL (12.0-16.0); LYMPHOCYTES # (AUTO) 0.9 10^3/uL (1.5-3.5); MEAN CORPUSCULAR HEMOGLOBIN 32.6 pg (27.0-31.0); MEAN CORPUSCULAR HGB CONC 34.3 g/dL (32.0-36.0); MEAN CORPUSCULAR VOLUME 95.2 fL (81.0-99.0); MONOCYTES # (AUTO) 0.4 10^3/uL (0.0-1.0); MONOCYTES % (AUTO) 6.7 %; NEUTROPHILS # (AUTO) 4.3 10^3/uL (1.5-6.6); NEUTROPHILS % (AUTO) 75.7 %; PLT - PLATELET COUNT 216 10^3/uL (130-450); RED BLOOD COUNT 4.01 10^6/uL (4.20-5.40); WHITE BLOOD COUNT 5.7 x10^3/uL (4.8-10.8)
[2018-05-30 12:34] LABS: VBG BASE EXCESS -4.1 mmol/L (-2 - +2); VBG PCO2 32.7 mmHg (41-51); VBG PH 7.398 (7.31-7.41); VBG PO2 50.7 mmHg (25-47); VBG TOTAL CO2 20.7 mmol/L (24-29)
[2018-05-30 13:09] LABS: KETONES, SERUM (ACETEST) SMALL (NEGATIVE)
[2018-05-30 13:21] LABS: ALBUMIN 3.1 g/dL (3.2-5.5); ALBUMIN/GLOBULIN RATIO 0.8 (1.0-2.2); ALKALINE PHOSPHATASE 110 IU/L (42-121); ALT ALANINE AMINOTRANSFERASE 15 IU/L (10-60); AST ASPARTATE AMINOTRANSFERASE 25 IU/L (10-42); BILIRUBIN,TOTAL 1.1 mg/dL (0.2-1.0); BUN - BLOOD UREA NITROGEN 14 mg/dL (6-20); CALCIUM 8.1 mg/dL (8.5-10.3); CARBON DIOXIDE - CO2 18 mmol/L (21-32); CHLORIDE 98 mmol/L (101-111); CREATININE 0.6 mg/dL (0.4-1.0); GFR - MDRD 111 (>89); GLUCOSE 468 mg/dL (70-100); LIPASE 19 U/L (22-51); SODIUM 129 mmol/L (135-145); TOTAL PROTEIN 7.1 g/dL (6.7-8.2)
[2018-05-30 13:48] LABS: BILIRUBIN,URINE NEGATIVE (NEGATIVE); GLUCOSE, URINE (UA) >=1000 mg/dL (NEGATIVE); KETONES,URINE (UA) 40 mg/dL (NEGATIVE); LEUKOCYTE ESTERASE, URINE NEGATIVE (NEGATIVE); NITRITE,URINE NEGATIVE (NEGATIVE); OCCULT BLOOD,URINE LARGE (NEGATIVE); PROTEIN,URINE TRACE mg/dL (NEGATIVE); UROBILINOGEN,URINE 0.2 (NORMAL) E.U./dL (NORMAL)
[2018-05-30 13:55] LABS: CLARITY,URINE CLEAR (CLEAR)
[2018-05-30 13:56] LABS: HCG UR QUAL NEGATIVE
[2018-05-30 14:10] LABS: BACTERIA,URINE Rare /HPF (None Seen); RBC,URINE TNTC /HPF (0-5); SQUAMOUS EPITHELIAL CELL,UR MOD Squamous (<= Few)
[2018-05-30] MEDS ORDERED: IOPAMIDOL-300 100 ML VIAL ONE (14:23)
[2018-05-30 15:14] VITALS: BP 135/76
--- NOTE | 2018-05-30 15:16 | CT Report ---
Reason: IV only, LLQ p[ain Procedure Date: 05/30/2018 Accession Number: [id number] / [id number] Procedure: CT - Abdomen/Pelvis W/ CPT Code: FULL RESULT: EXAM: CT ABDOMEN AND PELVIS WITH IV CONTRAST EXAM DATE: 05/30/2018. CLINICAL HISTORY: Left lower abdominal pain. COMPARISONS: Abdomen and pelvis CT done 10/08/2017. TECHNIQUE: Routine helical CT imaging was performed through the abdomen and pelvis. IV contrast: 100 cc of Isovue-300. Enteric contrast: None. Reconstructions: Coronal and sagittal. In accordance with CT protocol optimization, one or more of the following dose reduction techniques were utilized for this exam: automated exposure control, adjustment of mA and/or KV based on patient size, or use of iterative reconstructive technique. FINDINGS: Lung Bases: The lungs appear clear. No pleural or pericardial effusion. Pacemaker leads are unchanged. Liver: Enlarged, right lobe 20.8 cm. Ill-defined hypodensity of the falciform ligament is larger, 2.8 x 2.6 x 6.9 cm. The cyst arising from the posterior inferior right lobe is unchanged. Gallbladder/Bile Ducts: Cholecystectomy. No bile duct dilatation. Spleen: Normal. Pancreas: Normal. Adrenal Glands: Normal. Kidneys: Normal. No masses or hydronephrosis. Peritoneal Cavity/Bowel: Moderate volume of feces in the colon. No bowel dilatation. No acute inflammatory changes, adenopathy, fluid collections, or free air. Pelvic Organs: The urinary bladder appears normal. Fibroid uterus is unchanged. Left ovary is unchanged in size. Collapsing follicle. No adenopathy. No fluid collections. Vasculature: Minimal scattered atherosclerosis. No aneurysm. Bones: Normal. IMPRESSION: No acute inflammatory process. Moderate volume of feces in the colon. Fibroid uterus is unchanged. Mild hepatomegaly. Focal region of decreased attenuation in the liver near the falciform ligament is probably focal fatty infiltration, though his larger than on the prior examination. This could be confirmed with MRI. Status post cholecystectomy. RADIA
[2018-05-30] MEDS ORDERED: IOPAMIDOL-300 100 ML VIAL IVP ONE (16:54)
== END 2018-05-30 15:51 | disposition home or self-care (01) ==
LOC: ED 11:29
DX: E10.65 Type 1 diabetes mellitus with hyperglycemia (principal); Z79.4 Long term (current) use of insulin; R10.32 Left lower quadrant pain; G89.29 Other chronic pain; K76.0 Fatty (change of) liver, not elsewhere classified; D25.9 Leiomyoma of uterus, unspecified; I10 Essential (primary) hypertension; Z79.82 Long term (current) use of aspirin
CPT/HCPCS: 36415; 74177; 80053; 81001; 81025; 82009; 82803; 83690; 85025; 96361; 96374; 96376; 99283; 99284; J1170; J1815; Q9967; 81003; 87086

== ENCOUNTER 2018-06-23 19:23 | Observation (INO) | payer MEDICAID ==
[2018-06-23] MEDS ORDERED: SODIUM CHLORIDE 0.9% 1,000 ML IV ONE ×4 (19:40→23:12)
--- NOTE | 2018-06-23 20:15 | ED Physician Documentation ---
History of Present Illness - Stated complaint Stated Complaint: SOA/CHEST PX - Chief complaint Chief Complaint: Cardiac - History obtained from History obtained from: Patient - History of Present Illness Timing: Yesterday Pain level max: 5 Pain level now: 5 - Additonal information Additional information: 37-year-old female with a long-standing history of diabetes. She presents to the emergency department stating her blood sugars have been higher than normal. She is feeling fatigued, short of breath and having abdominal pain. This is not an uncommon presentation for her. She states her blood sugar was over 500 and took 10 units of insulin prior to arrival. Review of Systems Ten Systems: 10 systems reviewed and negative Constitutional: denies: Fever, Chills Ears: denies: Ear pain Nose: denies: Rhinorrhea / runny nose, Congestion Cardiac: denies: Palpitations Respiratory: denies: Hemoptysis, Wheezing GI: reports: Abdominal Pain (diffuse), Nausea, Vomiting. denies: Diarrhea : denies: Dysuria, Frequency, Hesitancy Skin: denies: Rash Musculoskeletal: denies: Neck pain, Back pain Neurologic: denies: Headache PD PAST MEDICAL HISTORY - Past Medical History Past Medical History: Yes Cardiovascular: Hypertension, Arrhythmia, Other Respiratory: Pneumonia, Other Neuro: None Endocrine/Autoimmune: Type 1 diabetes (with sugars up above 250 just the last few days, was doing well the prior month or so. 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: Endometriosis, Fibroids, Other : None HEENT: None Psych: Depression, Anxiety, Bipolar disorder, Panic attacks, Post traumatic stress disorder, Claustrophobia Musculoskeletal: Gout, Chronic back pain Derm: Other - Past Surgical History Past Surgical History: Yes General: Cholecystectomy, Appendectomy, Hiatal hernia repair, Colonoscopy, EGD /PAGE MAKEUP SYSTEM OPERATOR: Oophrectomy, Other Cardiovascular: Pacemaker, Other HEENT: Myringotomy (tubes), Tonsil/Adenoidectomy, Other - Present Medications Home Medications: Ambulatory Orders Medication Instructions Recorded Confirmed Lorazepam [Ativan] 1 mg PO QPM PRN 08/29/13 04/01/18 Insulin Glargine,Hum.rec.anlog 35 units SUBQ BID 09/05/13 04/01/18 [Lantus Solostar] Amitriptyline [Elavil] 50 mg PO QPM 07/03/14 04/01/18 Cyclobenzaprine [Flexeril] 10 mg PO TID PRN #15 tablet 12/01/15 04/01/18 Spironolactone 25 mg PO DAILY 04/11/17 04/01/18 Aspirin [Aspirin EC] 81 mg PO DAILY 10/08/17 04/01/18 Furosemide 80 mg PO DAILY 10/08/17 04/01/18 Levothyroxine Sodium 250 mcg PO QDAC 10/08/17 04/01/18 Metoprolol Succinate 25 mg PO DAILY 10/08/17 04/01/18 Atorvastatin Calcium [Lipitor] 80 mg PO QPM 01/20/18 04/01/18 Lansoprazole [Prevacid] 30 mg PO BIDAC 01/20/18 04/01/18 Lisinopril [Zestril] 10 mg PO DAILY 01/20/18 04/01/18 Venlafaxine HCl [Venlafaxine HCl 150 mg PO DAILY 01/20/18 04/01/18 ER] Insulin Lispro [Humalog] 2 - 15 unit SUBQ ACHS 04/02/18 04/02/18 - Allergies Allergies/Adverse Reactions: Allergies Allergy/AdvReac Type Severity Reaction Status Date / Time sulfamethoxazole Allergy Intermediate rash/ Verified 06/23/18 19:39 [From Bactrim] adhesive Allergy Rash Verified 06/23/18 19:39 amoxicillin [Amoxicillin] Allergy unknown Verified 06/23/18 19:39 oxycodone [Oxycodone] AdvReac Intermediate hallucinate, Verified 06/23/18 19:39 vomit promethazine HCl * AdvReac Mild Nausea Verified 06/23/18 19:39 [From Phenergan] acetaminophen [From Percocet] AdvReac Hallucinati Verified 06/23/18 19:39 ons - Social History Does the pt smoke?: No Smoking Status: Never smoker Does the pt drink ETOH?: No Does the pt have substance abuse?: No - Immunizations Immunizations are current?: Yes - POLST Patient has POLST: No POLST Status: Full Code PD ED PE NORMAL - Vitals Vital signs reviewed: Yes - General General: Alert and oriented X 3, No acute distress, Well developed/nourished - HEENT HEENT: PERRL, Other (dry lips) - Neck Neck: Supple, no meningeal sign - Cardiac Cardiac: Other (tachycardic) - Respiratory Respiratory: No respiratory distress, Clear bilaterally - Abdomen Abdomen: Soft, Non distended, Other (mild diffuse TTP, no peritoneal signs) - Back Back: No spinal TTP - Derm Derm: Warm and dry - Extremities Extremities: No edema, No calf tenderness / cord - Neuro Neuro: Alert and oriented X 3 - Psych Psych: Normal mood, Normal affect Results - Vitals Vitals: Vital Signs - 24 hr 06/23/18 06/23/18 06/23/18 19:33 21:27 21:42 Temperature 36.9 C Heart Rate 115 H 109 H Respiratory 14 12 Rate Blood Pressure 174/86 H 177/82 H O2 Saturation 97 97 06/23/18 06/23/18 06/23/18 22:15 22:29 23:08 Temperature 37.0 C Heart Rate 115 H 118 H Respiratory 15 17 Rate Blood Pressure 180/85 H 185/81 H O2 Saturation 99 99 Oxygen O2 Source Room air - EKG (time done) 1934 Rate: Rate (enter#) (131) Rhythm: Sinus tachycardia (atrial paced) [place]: Normal Intervals: Normal [place] QRS: LVH Ischemia: Other (ST changes with LVH) - Labs Labs: Laboratory Tests 06/23/18 06/23/18 06/23/18 20:05 20:05 20:05 WBC 4.2 L RBC 4.15 L Hgb 13.1 Hct 39.9 MCV 96.2 MCH 31.5 H MCHC 32.7 RDW 12.5 Plt Count 258 MPV 8.3 Neut # (Auto) 2.9 Lymph # (Auto) 0.9 L [place] # (Auto) 0.4 Eos # (Auto) 0.1 Baso # (Auto) 0.1 Absolute Nucleated RBC 0.00 Nucleated RBC % 0.1 VBG pH 7.369 VBG pCO2 40.0 L VBG pO2 79.5 H VBG HCO3 22.6 L VBG Total CO2 23.8 L VBG O2 Saturation 23.8 L VBG Base Excess -2.5 L Sodium 127 L Potassium 4.8 Chloride 93 L Carbon Dioxide 19 L Anion Gap 15.0 H BUN 24 H Creatinine 0.9 Estimated GFR (MDRD) 70 L Glucose 564 H* Calcium 8.6 Total Bilirubin 1.2 H AST 16 ALT 16 Alkaline Phosphatase 131 H Troponin I Total Protein 7.2 Albumin 3.1 L Globulin 4.1 Albumin/Globulin Ratio 0.8 L Lipase 20 L Urine Color Urine Clarity Urine pH Ur Specific [place] Urine Protein Urine Glucose (UA) Urine Ketones Urine Occult Blood Urine Nitrite Urine Bilirubin Urine Urobilinogen Ur Leukocyte Esterase Ur Microscopic Review Urine Culture Comments Urine HCG, Qual Serum Ketones SMALL H 06/23/18 06/23/18 20:32 20:52 WBC RBC Hgb Hct MCV MCH MCHC RDW Plt Count MPV Neut # (Auto) Lymph # (Auto) [place] # (Auto) Eos # (Auto) Baso # (Auto) Absolute Nucleated RBC Nucleated RBC % VBG pH VBG pCO2 VBG pO2 VBG HCO3 VBG Total CO2 VBG O2 Saturation VBG Base Excess Sodium Potassium Chloride Carbon Dioxide Anion Gap BUN Creatinine Estimated GFR (MDRD) Glucose Calcium Total Bilirubin AST ALT Alkaline Phosphatase Troponin I < 0.04 Total Protein Albumin Globulin Albumin/Globulin Ratio Lipase Urine Color YELLOW Urine Clarity CLEAR Urine pH 5.5 Ur Specific [place] 1.010 Urine Protein NEGATIVE Urine Glucose (UA) >=1000 H Urine Ketones 40 H Urine Occult Blood TRACE-INTA Urine Nitrite NEGATIVE Urine Bilirubin NEGATIVE Urine Urobilinogen 0.2 (NORMAL) Ur Leukocyte Esterase NEGATIVE Ur Microscopic Review NOT INDICATED Urine Culture Comments NOT INDICATED Urine HCG, Qual NEGATIVE Serum Ketones - Rads (name of study) cxr Radiology: Prelim report reviewed, EMP read contemporaneously, See rad report (No acute disease) PD MEDICAL DECISION MAKING - ED course Complexity details: reviewed old records, reviewed results, re-evaluated patient, considered differential, d/w patient, d/w cruise consultant ED course: Patient is a 37-year-old female who presents to the emergency department with hyperglycemia, elevated anion gap and borderline DKA. Given IV fluids, insulin. Her blood sugar did decrease, but she remained nauseous and despite multiple doses of Zofran was still unable to tolerate p.o. She does appear significantly dehydrated, therefore will continue IV fluids. As she is not able to tolerate p.o., and is still feeling poorly, will place in observation for hydration overnight and Further monitoring. Discussed the case with Dr. Alvarado, hospitalist who accepts. This document was made in part using voice recognition software. While efforts are made to proofread this document, sound alike and grammatical errors may occur. Departure - Departure Disposition: ED Place in Observation Clinical Impression: Hyperglycemia, Dehydration, Tachycardia, Increased anion gap metabolic acidosis Vomiting Qualifiers: Vomiting type: unspecified Vomiting Intractability: intractable Nausea presence: with nausea Qualified Code(s): R11.2 - Nausea with vomiting, unspecified Condition: Stable
--- NOTE | 2018-06-23 20:16 | XRAY Report ---
Reason: Chest Pain Procedure Date: 06/23/2018 Accession Number: [id number] / [id number] Procedure: XR - Chest 1 View X-Ray CPT Code: 83075 FULL RESULT: EXAM: CHEST RADIOGRAPHY EXAM DATE: 06/23/2018 07:46 PM. CLINICAL HISTORY: Chest Pain. COMPARISON: CHEST 2 VIEW 05/06/2018 2:58 PM. TECHNIQUE: 1 view. FINDINGS: Lungs/Pleura: No focal opacities evident. No pleural effusion. No pneumothorax. Mediastinum: Borderline cardiomegaly. Left subclavian multilead pacemaker is in place. Other: None. IMPRESSION: No acute intrathoracic plain film abnormality. RADIA
[2018-06-23 20:17] LABS: BASOPHILS # (AUTO) 0.1 10^3/uL (0.0-0.1); BASOPHILS % (AUTO) 1.4 %; EOSINOPHILS # (AUTO) 0.1 10^3/uL (0.0-0.7); EOSINOPHILS % (AUTO) 1.3 %; HGB - HEMOGLOBIN 13.1 g/dL (12.0-16.0); LYMPHOCYTES # (AUTO) 0.9 10^3/uL (1.5-3.5); LYMPHOCYTES % (AUTO) 20.3 %; MEAN CORPUSCULAR HEMOGLOBIN 31.5 pg (27.0-31.0); MEAN CORPUSCULAR HGB CONC 32.7 g/dL (32.0-36.0); MEAN CORPUSCULAR VOLUME 96.2 fL (81.0-99.0); MEAN PLATELET VOLUME 8.3 fL (7.9-10.8); MONOCYTES # (AUTO) 0.4 10^3/uL (0.0-1.0); MONOCYTES % (AUTO) 8.8 %; NEUTROPHILS # (AUTO) 2.9 10^3/uL (1.5-6.6); NEUTROPHILS % (AUTO) 68.2 %; PLT - PLATELET COUNT 258 10^3/uL (130-450); RED BLOOD COUNT 4.15 10^6/uL (4.20-5.40); RED CELL DISTRIBUTION WIDTH 12.5 % (12.0-15.0); WHITE BLOOD COUNT 4.2 x10^3/uL (4.8-10.8)
[2018-06-23 20:36] LABS: VBG PH 7.369 (7.31-7.41)
[2018-06-23 20:37] LABS: VBG BASE EXCESS -2.5 mmol/L (-2 - +2); VBG PO2 79.5 mmHg (25-47); VBG TOTAL CO2 23.8 mmol/L (24-29)
[2018-06-23 20:43] LABS: BILIRUBIN,URINE NEGATIVE (NEGATIVE); GLUCOSE, URINE (UA) >=1000 mg/dL (NEGATIVE); KETONES,URINE (UA) 40 mg/dL (NEGATIVE); LEUKOCYTE ESTERASE, URINE NEGATIVE (NEGATIVE); NITRITE,URINE NEGATIVE (NEGATIVE); OCCULT BLOOD,URINE TRACE-INTA (NEGATIVE); PH,URINE 5.5 PH (5.0-7.5); PROTEIN,URINE NEGATIVE (NEGATIVE); UROBILINOGEN,URINE 0.2 (NORMAL) E.U./dL (NORMAL)
[2018-06-23 20:45] LABS: CLARITY,URINE CLEAR (CLEAR); HCG UR QUAL NEGATIVE
[2018-06-23] MEDS ORDERED: ONDANSETRON 4 MG/2 ML VIAL IVP STA ×2 (21:08→23:12)
[2018-06-23] MEDS ORDERED: HYDROmorphone 1 MG/ML CARPUJECT IVP STA (21:09)
[2018-06-23 21:13] LABS: ALBUMIN 3.1 g/dL (3.2-5.5); ALBUMIN/GLOBULIN RATIO 0.8 (1.0-2.2); ALKALINE PHOSPHATASE 131 IU/L (42-121); ALT ALANINE AMINOTRANSFERASE 16 IU/L (10-60); AST ASPARTATE AMINOTRANSFERASE 16 IU/L (10-42); BILIRUBIN,TOTAL 1.2 mg/dL (0.2-1.0); BUN - BLOOD UREA NITROGEN 24 mg/dL (6-20); CALCIUM 8.6 mg/dL (8.5-10.3); CARBON DIOXIDE - CO2 19 mmol/L (21-32); CHLORIDE 93 mmol/L (101-111); CREATININE 0.9 mg/dL (0.4-1.0); GFR - MDRD 70 (>89); LIPASE 20 U/L (22-51); SODIUM 127 mmol/L (135-145); TOTAL PROTEIN 7.2 g/dL (6.7-8.2)
[2018-06-23 21:16] LABS: GLUCOSE 564 mg/dL (70-100)
[2018-06-23 21:20] LABS: KETONES, SERUM (ACETEST) SMALL (NEGATIVE)
[2018-06-23] MEDS ORDERED: INSULIN REGULAR HUMAN 100 UNIT/1 ML 10 ML MDV SUBQ STA (21:24)
[2018-06-23] MEDS ORDERED: INSULIN REGULAR HUMAN 100 UNIT/1 ML 10 ML MDV IVP STA (21:24)
[2018-06-23] MEDS ORDERED: PROCHLORPERAZINE 10 MG/2 ML VIAL IVP PRN (23:17)
[2018-06-23] MEDS ORDERED: oxyCODONE 5 MG TABLET PO PRN (23:17)
[2018-06-23] MEDS ORDERED: ACETAMINOPHEN 325 MG TABLET PO PRN (23:17)
[2018-06-23] MEDS ORDERED: ZOLPIDEM 5 MG TABLET PO PRN (23:17)
[2018-06-23] MEDS ORDERED: ONDANSETRON 4 MG/2 ML VIAL IVP PRN (23:17)
[2018-06-23] MEDS ORDERED: METOPROLOL 5 MG/5 ML VIAL IVP PRN (23:31)
[2018-06-23] MEDS ORDERED: CYCLOBENZAPRINE 10 MG TABLET PO PRN (23:34)
[2018-06-23] MEDS ORDERED: LORazepam 0.5 MG TABLET PO PRN (23:34)
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
[2018-06-24] MEDS: SODIUM CHLORIDE FLUSH 0.9% 10 ML SYRINGE IVP SCH ×3 (00:51→15:40)
[2018-06-24] MEDS: MORPHINE 2 MG/ML CARPUJECT IVP PRN ×9 (00:51→22:08)
[2018-06-24] MEDS: METOPROLOL TARTRATE 50 MG TABLET PO SCH ×3 (01:00→20:59)
[2018-06-24] MEDS: GABAPENTIN 100 MG CAPSULE PO SCH ×4 (01:00→21:43)
[2018-06-24] MEDS: SODIUM CHLORIDE 0.9% 1,000 ML IV SCH ×4 (02:30→21:46)
[2018-06-24] MEDS: SODIUM CHLORIDE FLUSH 0.9% 10 ML SYRINGE IVP PRN (03:14)
[2018-06-24 05:58] LABS: BUN - BLOOD UREA NITROGEN 15 mg/dL (6-20); CALCIUM 7.8 mg/dL (8.5-10.3); CARBON DIOXIDE - CO2 21 mmol/L (21-32); CHLORIDE 102 mmol/L (101-111); CREATININE 0.7 mg/dL (0.4-1.0); GFR - MDRD 93 (>89); GLUCOSE 387 mg/dL (70-100); MAGNESIUM 1.8 mg/dL (1.7-2.8); SODIUM 132 mmol/L (135-145)
[2018-06-24] MEDS ORDERED: INSULIN REGULAR HUMAN 100 UNIT/1 ML 10 ML MDV SUBQ SCH ×2 (06:23→23:37)
[2018-06-24] MEDS ORDERED: INSULIN GLARGINE 300 UNIT/3 ML PEN SUBQ ONE (06:24)
[2018-06-24 06:31] LABS: HB2 TOTAL 12.1 g/dL; HEMOGLOBIN A1C 1.26 g/dL; HEMOGLOBIN A1C % 11.7 % (4.6-6.2)
[2018-06-24] MEDS ORDERED: INSULIN REGULAR HUMAN 100 UNIT/1 ML 10 ML MDV SUBQ ONE (06:51)
[2018-06-24 06:58] LABS: KETONES, SERUM (ACETEST) SMALL (NEGATIVE)
[2018-06-24] MEDS: PANTOPRAZOLE 40 MG VIAL IVP SCH ×2 (07:26→15:40)
[2018-06-24] MEDS: LEVOTHYROXINE 125 MCG TABLET PO SCH (07:26)
[2018-06-24] MEDS ORDERED: INSULIN ASPART 300 UNIT/3 ML PEN SUBQ ONE ×2 (08:22)
[2018-06-24] MEDS: INSULIN ASPART 300 UNIT/3 ML PEN SUBQ SCH ×4 (09:12→21:34)
[2018-06-24] MEDS: SPIRONOLACTONE 25 MG TABLET PO SCH (09:14)
[2018-06-24] MEDS: FUROSEMIDE 40 MG TABLET PO SCH (09:14)
[2018-06-24] MEDS: POLYETHYLENE GLYCOL 3350 17 GM PACKET PO SCH (09:15)
[2018-06-24] MEDS: VENLAFAXINE ER 75 MG CAPSULE PO SCH (09:15)
[2018-06-24] MEDS: LISINOPRIL 5 MG TABLET PO SCH (09:15)
[2018-06-24] MEDS: ASPIRIN EC 81 MG TABLET PO SCH (09:15)
[2018-06-24] MEDS: CLINDAMYCIN 150 MG CAPSULE PO SCH ×4 (11:05→21:43)
--- NOTE | 2018-06-24 13:44 | Ultrasound Report ---
Reason: right arm warm and tenderness, hx of DVT Procedure Date: 06/24/2018 Accession Number: [id number] / [id number] Procedure: US - Duplex Ext Veins Right CPT Code: FULL RESULT: EXAM: RIGHT UPPER EXTREMITY VENOUS ULTRASOUND EXAM DATE: 06/24/2018 12:49 PM. CLINICAL HISTORY: Right arm warm and tenderness, hx of DVT. COMPARISON: DUPLEX EXT VEINS RIGHT 05/01/2017 10:51 AM. TECHNIQUE: Real-time sonographic vascular imaging was performed by the acid conditioner through the upper extremity utilizing both color-flow and Doppler spectral analysis. Multiple unit support representative static images were saved for review. FINDINGS: Internal Jugular Vein (IJV): Normal. Subclavian Vein (SCV): Normal. Axillary Vein : Normal. Cephalic Vein (superficial vein): Normal. Basilic Vein (superficial vein): Normal. Brachial Vein: Normal. Contralateral Side: Subclavian Vein: Normal. Other: None. IMPRESSION: No evidence for deep vein thrombosis. RADIA
[2018-06-24] MEDS: SACCHAROMYCES BOULARDII 250 MG CAPSULE PO SCH (17:08)
[2018-06-24] MEDS ORDERED: AMITRIPTYLINE 25 MG TABLET PO SCH (21:00)
[2018-06-24] MEDS ORDERED: ATORVASTATIN 40 MG TABLET PO SCH (21:00)
[2018-06-24] MEDS ORDERED: INSULIN GLARGINE 300 UNIT/3 ML PEN SUBQ SCH ×2 (21:00)
[2018-06-25] MEDS: MORPHINE 2 MG/ML CARPUJECT IVP PRN ×5 (00:37→12:06)
[2018-06-25] MEDS: SODIUM CHLORIDE FLUSH 0.9% 10 ML SYRINGE IVP SCH ×2 (00:39→08:18)
[2018-06-25] MEDS: INSULIN REGULAR HUMAN 100 UNIT/1 ML 10 ML MDV SUBQ SCH ×4 (00:53→11:39)
[2018-06-25] MEDS: SODIUM CHLORIDE FLUSH 0.9% 10 ML SYRINGE IVP PRN ×4 (03:49→09:43)
[2018-06-25] MEDS: SODIUM CHLORIDE 0.9% 1,000 ML IV SCH ×2 (04:57→11:34)
[2018-06-25 05:49] LABS: CALCIUM 7.4 mg/dL (8.5-10.3); CREATININE 0.7 mg/dL (0.4-1.0)
[2018-06-25] MEDS: PANTOPRAZOLE 40 MG VIAL IVP SCH (06:27)
[2018-06-25] MEDS: LEVOTHYROXINE 125 MCG TABLET PO SCH (06:27)
[2018-06-25] MEDS: GABAPENTIN 100 MG CAPSULE PO SCH ×2 (06:27→12:57)
[2018-06-25 08:16] LABS: BASOPHILS # (AUTO) 0.1 10^3/uL (0.0-0.1); BASOPHILS % (AUTO) 1.3 %; EOSINOPHILS # (AUTO) 0.1 10^3/uL (0.0-0.7); EOSINOPHILS % (AUTO) 1.6 %; LYMPHOCYTES # (AUTO) 1.4 10^3/uL (1.5-3.5); LYMPHOCYTES % (AUTO) 26.6 %; MEAN CORPUSCULAR HEMOGLOBIN 32.2 pg (27.0-31.0); MEAN CORPUSCULAR HGB CONC 34.6 g/dL (32.0-36.0); MEAN CORPUSCULAR VOLUME 93.1 fL (81.0-99.0); MONOCYTES # (AUTO) 0.5 10^3/uL (0.0-1.0); MONOCYTES % (AUTO) 9.5 %; NEUTROPHILS # (AUTO) 3.3 10^3/uL (1.5-6.6); PLT - PLATELET COUNT 211 10^3/uL (130-450); RED BLOOD COUNT 4.04 10^6/uL (4.20-5.40); RED CELL DISTRIBUTION WIDTH 13.1 % (12.0-15.0); WHITE BLOOD COUNT 5.4 x10^3/uL (4.8-10.8)
[2018-06-25 08:18] LABS: RBC MORPHOLOGY (MULTIPLE) 1+ ANISOCYTOSIS (NORMAL)
[2018-06-25] MEDS: SPIRONOLACTONE 25 MG TABLET PO SCH (08:29)
[2018-06-25] MEDS: VENLAFAXINE ER 75 MG CAPSULE PO SCH (08:29)
[2018-06-25] MEDS: INSULIN ASPART 300 UNIT/3 ML PEN SUBQ SCH ×2 (08:29→11:35)
[2018-06-25] MEDS: SACCHAROMYCES BOULARDII 250 MG CAPSULE PO SCH (08:29)
[2018-06-25] MEDS: LISINOPRIL 5 MG TABLET PO SCH (08:29)
[2018-06-25] MEDS: CLINDAMYCIN 150 MG CAPSULE PO SCH ×2 (08:29→12:56)
[2018-06-25] MEDS: FUROSEMIDE 40 MG TABLET PO SCH (08:29)
[2018-06-25] MEDS: ASPIRIN EC 81 MG TABLET PO SCH (08:29)
[2018-06-25] MEDS: METOPROLOL TARTRATE 50 MG TABLET PO SCH (08:29)
[2018-06-25] MEDS: POLYETHYLENE GLYCOL 3350 17 GM PACKET PO SCH (08:30)
[2018-06-25 11:33] VITALS: BP 127/72
--- NOTE | 2018-06-25 12:09 | Discharge Plan ---
Discharge Plan Disposition: Home, Self Care Condition: Poor Prescriptions: Clindamycin [Cleocin] 300 mg PO QID #40 capsule Gabapentin [Neurontin] 100 mg PO TID #30 capsule Hydrocodone/Acetaminophen [Vicodin 5-300 mg Tablet] 1 each PO Q6H PRN #20 tablet PRN Reason: Pain Ondansetron HCl [Zofran] 4 mg PO Q6H PRN #20 tablet PRN Reason: Nausea / Vomiting Saccharomyces Boulardii [Florastor] 250 mg PO BID #10 capsule Diet: Diabetic Activity Restrictions: Activity as Tolerated Shower Restrictions: No (fall precaution) Instruction Topics: Acetaminophen Oxycodone tablets, Clindamycin capsules, Gabapentin capsules or tablets, Ondansetron tablets Additional Instructions or Follow Up instructions: You may followup your PCP in one week. You were admitted for nausea, vomiting and abdominal pain. These symptoms are well controlled after treated at hospital. Your A1C is still high, you are advised for medical-compliance. Discuss with you about the effects and side effects of all your new medications. Should your symptoms return or worsen, you may present ER or call 911 for help. No Smoking: If you smoke, Please STOP! Call for help. Follow-up with: Amisha Staton DO [Primary Care Provider] -
--- NOTE | 2018-06-25 12:45 | DISCHARGE SUMMARY ---
Discharge Summary Discharge Date: 06/25/18 Discharging Provider: VIZCARRA Primary Care Provider: Dr. Staton Condition at Discharge: Poor Discharge Disposition: 01 Home, Self Care Discharge Facility Name: home - DIAGNOSES Admission Diagnoses: (1) Increased anion gap metabolic acidosis (2) Hyperglycemia (3) Tachycardia (4) Abdominal pain (5) Chest pain of uncertain etiology (6) Hyponatremia (7) Hypothyroidism (8) Nausea & vomiting Discharge Diagnoses with Status of Each Condition: (1) Increased anion gap metabolic acidosis resolved (2) Hyperglycemia resolved, glucose is 109 after treated (3) Tachycardia resolved (4) Abdominal pain resolved. pt tolerate regular diet. pt request to be d/c to home (5) Chest pain of uncertain etiology resolved. serial troponin are negative. pt report she has no chest pain. (6) Hyponatremia resolved (7) Hypothyroidism TSH is normal, stable (8) Nausea & vomiting resolved. pt tolerate the regular diet. - HPI History of Present Illness: refer from Dr. Alvarado's HPI on 06/24/18 for pt as the following: Patient is a 37-year-old female with a complex medical history of type 1 diabet es since the age of 7, historically poorly controlled, SVT status post ablation with complication leading to iatrogenic heart block status post pacemaker, upper extremity DVT, diabetic peripheral neuropathy, hypothyroidism, on medical disability who lives at home with her father and was in her typical state of health up until about 2 days ago when she started to develop some nausea and vomiting. She noted at the time of her blood sugars were in the low 200 ranges, which were not too worrisome for her. She admits in the past she had been poorly compliant but states that more recently she has been doing a much better job since she had a wakeup call with her last hospitalization. However, today on 06/23/2018 the patient reports that her nausea and vomiting got significantly worse, she laid down to take a nap for several hours and when she woke up her blood sugar was over 500 and given that she had right upper quadrant pain, nausea and vomiting, she decided to come to the emergency room for further evaluation. Next Patient is very well-known to the emergency department physicians and staff, and she has presented with similar symptoms in the past, previously in diabetic ketoacidosis. Her evaluation here did not reveal diabetic ketoacidosis however she did have mild ketones, a mildly elevated anion gap with only a minimal acidosis. She does appear dehydrated clinically and by laboratory assessment, and was given 2 L of IV fluids as well as pain medication and I was asked to admit the patient under observation status for primarily IV fluid resuscitation and antiemesis control. Again, patient does report some right upper quadrant abdominal pain that she states was similar to when she was diagnosed with a hepatic cyst. She also states that she is having some suprapubic discomfort for the last week, and also is now having some pain in the chest wall over the last 2 days as well which is concerning for her because of the past history of infected defibrillator leads leading to change of pacemaker last year. - HOSPITAL COURSE Hospital Course: pt was admitted for N/V, abdominal pain, and hyperglycemia. After hydration, and give insulin, and anti-emesis, pt's symptoms are resolved. Pt tolerate regular diet. There is no N/V or abdominal pain, glucose is down to 106. There is no chest pain per pt report. pt was found to have mild cellulitis at her right arm. pt is prescribed Clindymycin to finish the antibiotics in the home. - ALLERGIES Allergies/Adverse Reactions: Allergies Allergy/AdvReac Type Severity Reaction Status Date / Time sulfamethoxazole Allergy Intermediate rash/ Verified 06/23/18 19:39 [From Bactrim] adhesive Allergy Rash Verified 06/23/18 19:39 amoxicillin [Amoxicillin] Allergy unknown Verified 06/23/18 19:39 oxycodone [Oxycodone] AdvReac Intermediate hallucinate, Verified 06/23/18 19:39 vomit promethazine HCl * AdvReac Mild Nausea Verified 06/23/18 19:39 [From Phenergan] acetaminophen [From Percocet] AdvReac Hallucinati Verified 06/23/18 19:39 ons - MEDICATIONS Home Medications: Ambulatory Orders Medication Instructions Recorded Confirmed Lorazepam [Ativan] 1 mg PO QPM PRN 08/29/13 06/24/18 Insulin Glargine,Hum.rec.anlog 35 units SUBQ BID 09/05/13 06/24/18 [Lantus Solostar] Amitriptyline [Elavil] 50 mg PO QPM 07/03/14 06/24/18 Cyclobenzaprine [Flexeril] 10 mg PO TID PRN #15 tablet 12/01/15 06/24/18 Spironolactone 25 mg PO DAILY 04/11/17 06/24/18 Aspirin [Aspirin EC] 81 mg PO DAILY 10/08/17 06/24/18 Furosemide 80 mg PO DAILY 10/08/17 06/24/18 Levothyroxine Sodium 250 mcg PO QDAC 10/08/17 06/24/18 Metoprolol Succinate 25 mg PO DAILY 10/08/17 06/24/18 Atorvastatin Calcium [Lipitor] 80 mg PO QPM 01/20/18 06/24/18 Lansoprazole [Prevacid] 30 mg PO BIDAC 01/20/18 06/24/18 Lisinopril [Zestril] 10 mg PO DAILY 01/20/18 06/24/18 Venlafaxine HCl [Venlafaxine HCl 150 mg PO DAILY 01/20/18 06/24/18 ER] Insulin Lispro [Humalog] 2 - 15 unit SUBQ ACHS 04/02/18 06/24/18 Clindamycin [Cleocin] 300 mg PO QID #40 capsule 06/25/18 Gabapentin [Neurontin] 100 mg PO TID #30 capsule 06/25/18 Hydrocodone/Acetaminophen [Vicodin 1 each PO Q6H PRN #20 tablet 06/25/18 5-300 mg Tablet] Ondansetron HCl [Zofran] 4 mg PO Q6H PRN #20 tablet 06/25/18 Saccharomyces Boulardii [Florastor] 250 mg PO BID #10 capsule 06/25/18 - PHYSICAL EXAM AT DISCHARGE General Appearance: positive: No acute distress, Alert. negative: Lethargic Eyes Bilateral: positive: Normal inspection, PERRL, No lid inflammation, Conjunctivae nml ENT: positive: ENT inspection nml, Pharynx nml, No signs of dehydration. negative: Purulent nasal drainage, Pharyngeal erythema, Oral lesions Neck: positive: Nml inspection, Thyroid nml, No JVD, Trachea midline. negative: Thyromegaly, Lymphadenopathy (R), Lymphadenopathy (L), Stiff neck, Swelling/bruising, Tracheal deviation Respiratory: positive: Chest non-tender, No respiratory distress, Breath sounds nml. negative: Wheezes, Rales Cardiovascular: positive: Regular rate & rhythm, No murmur, No gallop, Irregularly irregular. negative: Extrasystoles, Tachycardia, Bradycardia, JVD present, Systolic murmur, Diastolic murmur Peripheral Pulses: positive: 2+ Abdomen: positive: Non-tender, No organomegaly, Nml bowel sounds, No distention. negative: Tenderness, Guarding, Rebound Back: positive: Nml inspection. negative: CVA tenderness (R), CVA tenderness (L) Skin: positive: Color nml, No rash, Warm, Dry. negative: Cyanosis, Diaphoresis, Pallor Extremities: positive: Non-tender, Full ROM, Nml appearance. negative: Calf tenderness, Joint swelling, Rishi's sign/cords Neurologic/Psychiatric: positive: Oriented x3, Motor nml, Sensation nml, Mood/affect nml. negative: Weakness, Sensory loss, Facial droop, Slurred/abnml speech, Depressed mood/affect - LABS Result Diagrams: 06/25/18 05:30 06/25/18 05:30 - SEPSIS Current Stage of Sepsis: Ruled out - FOLLOW UP Follow Up: You may followup your PCP in one week. You were admitted for nausea, vomiting a nd abdominal pain. These symptoms are well controlled after treated at hospital. You have no chest pain reported in the hospital. Your A1C is still high, you are advised for medical-compliance. Discuss with you about the effects and side effects of all your new medications. Should your symptoms return or worsen, you may present ER or call 911 for help. - TIME SPENT Time Spent in Discharge (Minutes): 50
== END 2018-06-25 13:07 | disposition home or self-care (01) ==
LOC: ED 19:23 → OBS 23:18
PROVIDERS: ADMIT Family Medicine Sports Medicine; ATTEND Nurse Practitioner Gerontology
DX: E10.10 Type 1 diabetes mellitus with ketoacidosis without coma (principal); E86.0 Dehydration; R07.89 Other chest pain; R94.31 Abnormal electrocardiogram [ECG] [EKG]; E87.1 Hypo-osmolality and hyponatremia; E03.9 Hypothyroidism, unspecified; L03.113 Cellulitis of right upper limb; I11.0 Hypertensive heart disease with heart failure; I50.9 Heart failure, unspecified; G89.29 Other chronic pain; I45.9 Conduction disorder, unspecified; E10.42 Type 1 diabetes mellitus with diabetic polyneuropathy; K21.9 Gastro-esophageal reflux disease without esophagitis; F31.9 Bipolar disorder, unspecified; F41.0 Panic disorder [episodic paroxysmal anxiety]; F43.10 Post-traumatic stress disorder, unspecified; E78.00 Pure hypercholesterolemia, unspecified; Z86.718 Personal history of other venous thrombosis and embolism; Z86.711 Personal history of pulmonary embolism; Z86.14 Personal history of Methicillin resistant Staphylococcus aureus infection; Z79.899 Other long term (current) drug therapy; Z79.4 Long term (current) use of insulin; Z95.0 Presence of cardiac pacemaker; Z91.14 Patient's other noncompliance with medication regimen; Z79.82 Long term (current) use of aspirin
CPT/HCPCS: 36415; 71045; 80048; 80053; 81003; 81025; 82009; 82803; 83036; 83690; 83735; 84100; 84443; 84484; 85025; 93005; 93971; 96361; 96374; 96375; 96376; 99284; A9270; G0378; J1170; J1815; 81001; 87086; 99285

== ENCOUNTER 2018-07-22 10:57 | Observation (INO) | payer MEDICAID ==
[2018-07-22 12:15] LABS: VBG BASE EXCESS -11.3 mmol/L (-2 - +2); VBG PCO2 31.6 mmHg (41-51); VBG PH 7.271 (7.31-7.41); VBG PO2 34.6 mmHg (25-47); VBG TOTAL CO2 15.2 mmol/L (24-29)
[2018-07-22] MEDS ORDERED: SODIUM CHLORIDE 0.9% 1,000 ML IV ONE (12:15)
[2018-07-22] MEDS ORDERED: INSULIN REGULAR HUMAN 100 UNIT/1 ML 10 ML MDV IVP STA (12:15)
[2018-07-22] MEDS ORDERED: HYDROmorphone 2 MG/ML VIAL IVP STA (12:15)
[2018-07-22] MEDS ORDERED: ONDANSETRON 4 MG/2 ML VIAL IVP STA (12:15)
[2018-07-22 12:16] LABS: BASOPHILS % (AUTO) 0.4 %; EOSINOPHILS # (AUTO) 0.1 10^3/uL (0.0-0.7); EOSINOPHILS % (AUTO) 1.3 %; HGB - HEMOGLOBIN 14.1 g/dL (12.0-16.0); LYMPHOCYTES # (AUTO) 1.1 10^3/uL (1.5-3.5); LYMPHOCYTES % (AUTO) 13.4 %; MEAN CORPUSCULAR HEMOGLOBIN 32.3 pg (27.0-31.0); MEAN CORPUSCULAR HGB CONC 33.7 g/dL (32.0-36.0); MEAN CORPUSCULAR VOLUME 95.8 fL (81.0-99.0); MEAN PLATELET VOLUME 7.4 fL (7.9-10.8); MONOCYTES # (AUTO) 0.4 10^3/uL (0.0-1.0); NEUTROPHILS # (AUTO) 6.5 10^3/uL (1.5-6.6); NEUTROPHILS % (AUTO) 79.9 %; PLT - PLATELET COUNT 299 10^3/uL (130-450); RED BLOOD COUNT 4.37 10^6/uL (4.20-5.40); RED CELL DISTRIBUTION WIDTH 13.8 % (12.0-15.0); WHITE BLOOD COUNT 8.1 x10^3/uL (4.8-10.8)
--- NOTE | 2018-07-22 12:18 | ED Physician Documentation ---
PD HPI ABD PAIN - Stated complaint Stated Complaint: HIGH BLOOD SUGAR ABD PX N/V/D - Chief complaint Chief Complaint: Abd Pain - History obtained from History obtained from: Patient - History of Present Illness Timing - onset: Other (This is a 37-year-old woman with type 1 diabetes, she is relatively well known to this emergency department, she has problems with brittle diabetes, and issues with pain. Since Gregory evening she started to develop pacemaker site pain as well as dental pain from her right mandibular molar. This was associated with abdominal pain and nausea, one episode of vomiting since but profuse diarrhea which stopped last night. No fevers. Her blood sugars have been labile. She was up into the 500s but got it down but it went back up again. She has not taken any long-acting insulin today but she did take 20 units of NovoLog at about 1030 this morning.) Review of Systems Ten Systems: 10 systems reviewed and negative Constitutional: denies: Fever, Chills Cardiac: denies: Chest pain / pressure, Palpitations Respiratory: denies: Dyspnea, Cough GI: reports: Abdominal Pain, Nausea, Vomiting, Diarrhea : denies: Dysuria, Frequency PD PAST MEDICAL HISTORY - Past Medical History Cardiovascular: Congestive heart failure, Hypertension, High cholesterol, Deep vein thrombosis, Pulmonary embolism, Arrhythmia, Other Respiratory: Pneumonia, Other Neuro: Peripheral neuropathy Endocrine/Autoimmune: Type 1 diabetes, HyPOthyroidism, Other GI: GERD [employer]ER: Endometriosis, Fibroids, Other : None HEENT: None Psych: Depression, Anxiety, Bipolar disorder, Panic attacks, Post traumatic stress disorder, Claustrophobia Musculoskeletal: Gout, Chronic back pain Derm: Other - Past Surgical History Past Surgical History: Yes General: Cholecystectomy, Appendectomy, Hiatal hernia repair, Colonoscopy, EGD /[employer]: Oophrectomy, Other Cardiovascular: Pacemaker, Other HEENT: Myringotomy (tubes), Tonsil/Adenoidectomy, Other - Present Medications Home Medications: Ambulatory Orders Medication Instructions Recorded Confirmed RX: Lorazepam [Ativan] 1 mg PO QPM PRN 08/29/13 07/22/18 RX: Insulin Glargine,Hum.rec.anlog 27 units SUBQ DAILY 09/05/13 07/22/18 [Lantus Solostar] RX: Amitriptyline [Elavil] 50 mg PO QPM 07/03/14 07/22/18 RX: Cyclobenzaprine [Flexeril] 10 mg PO TID PRN #15 tablet 12/01/15 07/22/18 RX: Spironolactone 25 mg PO DAILY 04/11/17 07/22/18 RX: Aspirin [Aspirin EC] 81 mg PO DAILY 10/08/17 07/22/18 RX: Furosemide 80 mg PO DAILY 10/08/17 07/22/18 RX: Levothyroxine Sodium 250 mcg PO QDAC 10/08/17 07/22/18 RX: Metoprolol Succinate 25 mg PO QPM 10/08/17 07/22/18 RX: Atorvastatin Calcium [Lipitor] 80 mg PO DAILY 01/20/18 07/22/18 RX: Lansoprazole [Prevacid] 30 mg PO BIDAC 01/20/18 07/22/18 RX: Lisinopril [Zestril] 10 mg PO DAILY 01/20/18 07/22/18 RX: Venlafaxine HCl [Venlafaxine 150 mg PO DAILY 01/20/18 07/22/18 HCl ER] RX: Insulin Lispro [Humalog] 2 - 15 unit SUBQ ACHS 04/02/18 07/22/18 Insulin Glargine [Lantus Solostar] 32 unit SQ QPM 07/22/18 07/22/18 RX: Gabapentin 100 mg PO TID 07/22/18 07/22/18 - Allergies Allergies/Adverse Reactions: Allergies Allergy/AdvReac Type Severity Reaction Status Date / Time sulfamethoxazole Allergy Intermediate rash/ Verified 07/22/18 11:05 [From Bactrim] adhesive Allergy Rash Verified 07/22/18 11:05 amoxicillin [Amoxicillin] Allergy unknown Verified 07/22/18 11:05 oxycodone [Oxycodone] AdvReac Intermediate hallucinate, Verified 07/22/18 11:05 vomit promethazine HCl * AdvReac Mild Nausea Verified 07/22/18 11:05 [From Phenergan] acetaminophen [From Percocet] AdvReac Hallucinati Verified 07/22/18 11:05 ons - Social History Does the pt smoke?: No Smoking Status: Never smoker Does the pt drink ETOH?: No Does the pt have substance abuse?: No - Immunizations Immunizations are current?: Yes - POLST Patient has POLST: No POLST Status: Full Code PD ED PE NORMAL - Vitals Vital signs reviewed: Yes - General General: Alert and oriented X 3, No acute distress - HEENT HEENT: PERRL, EOMI, Other (There is a large cavity down to the gumline From a right mandibular premolar without trismus or tenderness.) - Neck Neck: Supple, no meningeal sign, No bony TTP - Cardiac Cardiac: No murmur, Other (She is tachycardic but less so than she was at triage, right around 110.) - Respiratory Respiratory: No respiratory distress, Clear bilaterally, Other (Pacemaker site left upper chest looks fine without redness or tenderness.) - Abdomen Abdomen: Normal bowel sounds, Soft, Non tender - Derm Derm: Normal color, Warm and dry - Extremities Extremities: No deformity, No tenderness to palpate - Neuro Neuro: Alert and oriented X 3, Normal speech Results - Vitals Vitals: Vital Signs - 24 hr 07/22/18 07/22/18 11:03 12:38 Temperature 36.4 C L Heart Rate 124 H 108 H Respiratory 20 18 Rate Blood Pressure 150/94 H 151/77 H O2 Saturation 100 98 Oxygen O2 Source Room air - Labs Labs: Laboratory Tests 07/22/18 07/22/18 07/22/18 11:19 12:10 12:10 WBC 8.1 RBC 4.37 Hgb 14.1 Hct 41.8 MCV 95.8 MCH 32.3 H MCHC 33.7 RDW 13.8 Plt Count 299 MPV 7.4 L Neut # (Auto) 6.5 Lymph # (Auto) 1.1 L Barbour # (Auto) 0.4 Eos # (Auto) 0.1 Baso # (Auto) 0.0 Absolute Nucleated RBC 0.00 Nucleated RBC % 0.0 VBG pH VBG pCO2 VBG pO2 VBG HCO3 VBG Total CO2 VBG O2 Saturation VBG Base Excess Sodium 132 L Potassium 3.6 Chloride 97 L Carbon Dioxide 14 L Anion Gap 21.0 H BUN 17 Creatinine 0.9 Estimated GFR (MDRD) 70 L Glucose 316 H POC Whole Bld Glucose 471 H Glycated Hemoglobin Estim Average Glucose Calcium 8.4 L Total Bilirubin 1.5 H AST 30 ALT 24 Alkaline Phosphatase 195 H Troponin I Total Protein 7.5 Albumin 3.1 L Globulin 4.4 H Albumin/Globulin Ratio 0.7 L Lipase 27 Serum Ketones SMALL H 07/22/18 07/22/18 07/22/18 12:10 12:10 12:10 WBC RBC Hgb Hct MCV MCH MCHC RDW Plt Count MPV Neut # (Auto) Lymph # (Auto) Barbour # (Auto) Eos # (Auto) Baso # (Auto) Absolute Nucleated RBC Nucleated RBC % VBG pH 7.271 L VBG pCO2 31.6 L VBG pO2 34.6 VBG HCO3 14.2 L VBG Total CO2 15.2 L VBG O2 Saturation 64.3 VBG Base Excess -11.3 L Sodium Potassium Chloride Carbon Dioxide Anion Gap BUN Creatinine Estimated GFR (MDRD) Glucose POC Whole Bld Glucose Glycated Hemoglobin 12.0 H Estim Average Glucose 298 H Calcium Total Bilirubin AST ALT Alkaline Phosphatase Troponin I < 0.04 Total Protein Albumin Globulin Albumin/Globulin Ratio Lipase Serum Ketones PD MEDICAL DECISION MAKING - ED course ED course: 37-year-old woman with diabetes and evidence of mild DKA is started on an insulin drip and given IV fluid resuscitation. Spoke with Dr. Carcamo for admission at 12:58 PM. Departure - Departure Disposition: ED Place in Observation Clinical Impression: DKA (diabetic ketoacidoses) Qualifiers: Diabetes mellitus type: type 1 Diabetes mellitus complication detail: without coma Qualified Code(s): E10.10 - Type 1 diabetes mellitus with ketoacidosis without coma Condition: Stable Discharge Date/Time: 07/22/18 16:19
[2018-07-22 12:25] LABS: KETONES, SERUM (ACETEST) SMALL (NEGATIVE)
[2018-07-22 12:29] LABS: ALBUMIN 3.1 g/dL (3.2-5.5); ALBUMIN/GLOBULIN RATIO 0.7 (1.0-2.2); ALKALINE PHOSPHATASE 195 IU/L (42-121); ALT ALANINE AMINOTRANSFERASE 24 IU/L (10-60); AST ASPARTATE AMINOTRANSFERASE 30 IU/L (10-42); BILIRUBIN,TOTAL 1.5 mg/dL (0.2-1.0); BUN - BLOOD UREA NITROGEN 17 mg/dL (6-20); CALCIUM 8.4 mg/dL (8.5-10.3); CARBON DIOXIDE - CO2 14 mmol/L (21-32); CHLORIDE 97 mmol/L (101-111); CREATININE 0.9 mg/dL (0.4-1.0); GFR - MDRD 70 (>89); GLUCOSE 316 mg/dL (70-100); LIPASE 27 U/L (22-51); SODIUM 132 mmol/L (135-145); TOTAL PROTEIN 7.5 g/dL (6.7-8.2)
[2018-07-22] MEDS ORDERED: CYCLOBENZAPRINE 10 MG TABLET PO PRN (12:59)
[2018-07-22] MEDS ORDERED: HYDROmorphone 1 MG/ML CARPUJECT IVP STA (12:59)
[2018-07-22] MEDS ORDERED: LORazepam 1 MG TABLET PO PRN (12:59)
[2018-07-22] MEDS ORDERED: INSULIN REGULAR HUMAN 100 UNIT in SODIUM CHLORIDE 0.9% 100ML 99 ML IV SCH ×2 (13:00→14:00)
[2018-07-22] MEDS ORDERED: ACETAMINOPHEN 325 MG TABLET PO PRN (13:01)
[2018-07-22] MEDS ORDERED: oxyCODONE 5 MG TABLET PO PRN ×2 (13:01)
[2018-07-22] MEDS ORDERED: ONDANSETRON ODT 4 MG TABLET TL PRN (13:01)
[2018-07-22] MEDS ORDERED: ZOLPIDEM 5 MG TABLET PO PRN (13:01)
[2018-07-22] MEDS ORDERED: PROCHLORPERAZINE 10 MG/2 ML VIAL IVP PRN (13:01)
[2018-07-22] MEDS ORDERED: SODIUM CHLORIDE FLUSH 0.9% 10 ML SYRINGE IVP PRN (13:01)
[2018-07-22] MEDS: ELECTROLYTE-A SOLUTION 1,000 ML IV SCH ×3 (13:08→21:29)
[2018-07-22 13:57] LABS: HB2 TOTAL 15.3 g/dL; HEMOGLOBIN A1C 1.65 g/dL
[2018-07-22] MEDS ORDERED: SODIUM CHLORIDE 0.9% 1,000 ML IV SCH (14:00)
[2018-07-22 14:29] LABS: CREATININE 0.7 mg/dL (0.4-1.0)
--- NOTE | 2018-07-22 14:36 | XRAY Report ---
Reason: Patient in DKA r/o pneumonia Procedure Date: 07/22/2018 Accession Number: [id number] / [id number] Procedure: XR - Chest 1 View X-Ray CPT Code: 41485 FULL RESULT: EXAM: CHEST RADIOGRAPHY EXAM DATE: 07/22/2018 01:56 PM. CLINICAL HISTORY: Patient in DKA. Rule out pneumonia. COMPARISON: CHEST 1 VIEW 06/23/2018 7:46 PM. TECHNIQUE: 1 view. FINDINGS: Lungs/Pleura: No focal opacities evident. No pleural effusion. No pneumothorax. Mediastinum: Within exam limitations, the cardiomediastinal contour is normal. Other: 3-lead biventricular pacemaker is unchanged in configuration with redundant lead coiled in the pacemaker pocket, correlate to original placed configuration to exclude "twiddler's syndrome". IMPRESSION: No evidence of airspace disease. RADIA
[2018-07-22 15:07] LABS: CALCIUM 7.5 mg/dL (8.5-10.3); MAGNESIUM 1.6 mg/dL (1.7-2.8)
[2018-07-22] MEDS ORDERED: KETOROLAC 30 MG/ML VIAL IVP STA (15:13)
[2018-07-22] MEDS ORDERED: MAGNESIUM SULFATE 2 GRAM 2 GM/50 ML BAG IV ONE (15:16)
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
[2018-07-22] MEDS ORDERED: D5.45NS W/20 MEQ KCL 1,000 ML IV SCH (16:00)
[2018-07-22] MEDS: HYDROmorphone 1 MG/ML CARPUJECT IVP PRN ×3 (16:47→23:09)
[2018-07-22] MEDS: SODIUM CHLORIDE FLUSH 0.9% 10 ML SYRINGE IVP SCH (16:47)
[2018-07-22] MEDS: INSULIN ASPART 300 UNIT/3 ML PEN SUBQ SCH ×2 (18:27→21:52)
[2018-07-22] MEDS: CLINDAMYCIN 150 MG CAPSULE PO SCH (18:28)
[2018-07-22] MEDS: SODIUM CHLORIDE 0.9% 1,000 ML IV SCH (18:29)
[2018-07-22] MEDS ORDERED: A & D OINTMENT 5 GM PACKET TOP PRN (18:43)
[2018-07-22] MEDS ORDERED: AMITRIPTYLINE 25 MG TABLET PO SCH (21:00)
[2018-07-22] MEDS ORDERED: INSULIN GLARGINE 300 UNIT/3 ML PEN SUBQ SCH (21:00)
[2018-07-22] MEDS ORDERED: ATORVASTATIN 40 MG TABLET PO SCH (21:00)
[2018-07-22] MEDS: GABAPENTIN 100 MG CAPSULE PO SCH (21:52)
[2018-07-22] MEDS: FAMOTIDINE 20 MG/50 ML 50 ML IV SCH (21:53)
[2018-07-22] MEDS ORDERED: GABAPENTIN 100 MG CAPSULE PO SCH (22:00)
[2018-07-23] MEDS: CLINDAMYCIN 150 MG CAPSULE PO SCH ×3 (01:12→13:42)
[2018-07-23] MEDS: SODIUM CHLORIDE FLUSH 0.9% 10 ML SYRINGE IVP SCH ×2 (01:12→09:08)
[2018-07-23] MEDS: HYDROmorphone 1 MG/ML CARPUJECT IVP PRN ×6 (01:27→13:47)
[2018-07-23] MEDS: SODIUM CHLORIDE 0.9% 1,000 ML IV SCH (02:18)
[2018-07-23] MEDS: ELECTROLYTE-A SOLUTION 1,000 ML IV SCH (03:19)
[2018-07-23] MEDS: GABAPENTIN 100 MG CAPSULE PO SCH (05:49)
[2018-07-23 06:13] LABS: BASOPHILS % (AUTO) 0.6 %; EOSINOPHILS # (AUTO) 0.1 10^3/uL (0.0-0.7); EOSINOPHILS % (AUTO) 2.3 %; HGB - HEMOGLOBIN 11.1 g/dL (12.0-16.0); LYMPHOCYTES # (AUTO) 1.1 10^3/uL (1.5-3.5); LYMPHOCYTES % (AUTO) 26.8 %; MEAN CORPUSCULAR HEMOGLOBIN 31.7 pg (27.0-31.0); MEAN CORPUSCULAR HGB CONC 32.8 g/dL (32.0-36.0); MEAN CORPUSCULAR VOLUME 96.6 fL (81.0-99.0); MEAN PLATELET VOLUME 7.2 fL (7.9-10.8); MONOCYTES # (AUTO) 0.4 10^3/uL (0.0-1.0); MONOCYTES % (AUTO) 9.8 %; NEUTROPHILS # (AUTO) 2.5 10^3/uL (1.5-6.6); NEUTROPHILS % (AUTO) 60.5 %; PLT - PLATELET COUNT 235 10^3/uL (130-450); RED BLOOD COUNT 3.49 10^6/uL (4.20-5.40); RED CELL DISTRIBUTION WIDTH 13.6 % (12.0-15.0); WHITE BLOOD COUNT 4.1 x10^3/uL (4.8-10.8)
[2018-07-23 06:35] LABS: ALBUMIN 2.4 g/dL (3.2-5.5); ALBUMIN/GLOBULIN RATIO 0.8 (1.0-2.2); BILIRUBIN,TOTAL 0.4 mg/dL (0.2-1.0); CALCIUM 7.2 mg/dL (8.5-10.3); CREATININE 0.7 mg/dL (0.4-1.0); MAGNESIUM 2.1 mg/dL (1.7-2.8); PHOSPHORUS 2.8 mg/dL (2.5-4.6); TOTAL PROTEIN 5.4 g/dL (6.7-8.2)
[2018-07-23] MEDS ORDERED: LEVOTHYROXINE 125 MCG TABLET PO SCH (07:00)
[2018-07-23] MEDS ORDERED: ASPIRIN EC 81 MG TABLET PO SCH (09:00)
[2018-07-23] MEDS ORDERED: ENOXAPARIN 40 MG/0.4 ML SYRINGE SUBQ SCH (09:00)
[2018-07-23] MEDS ORDERED: LISINOPRIL 5 MG TABLET PO SCH (09:00)
[2018-07-23] MEDS: INSULIN ASPART 300 UNIT/3 ML PEN SUBQ SCH ×2 (09:00→12:01)
[2018-07-23] MEDS ORDERED: INSULIN GLARGINE 300 UNIT/3 ML PEN SUBQ SCH (09:00)
[2018-07-23] MEDS ORDERED: METOPROLOL SUCCINATE 25 MG TABLET PO SCH (09:00)
[2018-07-23] MEDS: FAMOTIDINE 20 MG/50 ML 50 ML IV SCH (09:00)
[2018-07-23] MEDS ORDERED: SPIRONOLACTONE 25 MG TABLET PO SCH (09:00)
[2018-07-23] MEDS ORDERED: VENLAFAXINE ER 75 MG CAPSULE PO SCH (09:00)
--- NOTE | 2018-07-23 10:44 | Discharge Plan ---
Discharge Plan Disposition: 01 Home, Self Care Condition: Fair Prescriptions: Clindamycin [Cleocin] 300 mg PO Q6HR #48 capsule Diet: Diabetic Activity Restrictions: Activity as Tolerated Shower Restrictions: No Driving Restrictions: No Weight Bearing: Full Weight Additional Instructions or Follow Up instructions: You presented to our emergency department due to nausea, vomiting and diarrhea. You were also having pain in your chest wall near your pacemaker site. You were found to be hyperglycemic with a blood sugar of around 500. You were in diabetic ketoacidosis initially when you came to the emergency department. This resolved quickly with insulin and IV fluids. You were found to have an infection over your chest wall at the area of your pacemaker incision. You also may have infection or early infection of your tooth. For these infections you have been given oral antibiotics with clindamycin which she will take for another 6 days. Your blood sugars are now much better controlled and your diarrhea has resolved. Please make sure to take your antibiotics and stay compliant with your insulin regimen. You are being discharged home in stable condition. No Smoking: If you smoke, Please STOP! Call for help. Follow-up with: Amisha Staton DO [Primary Care Provider] -
--- NOTE | 2018-07-23 12:39 | DISCHARGE SUMMARY ---
Discharge Summary Admit Date: 07/22/18 Discharge Date: 07/23/18 Discharging Provider: Ruy Carcamo MD Primary Care Provider: Amisha Staton MD Code Status: Attempt Resuscitation Condition at Discharge: Fair Discharge Disposition: 01 Home, Self Care - DIAGNOSES Admission Diagnoses: 1. Diabetic ketoacidosis 2. Cellulitis of the chest wall 3. Tooth infection 4. Gastroenteritis 5. Chronic pain 6. Depression 7. Hypertension 8. Hypothyroidism 9. Hypomagnesemia Discharge Diagnoses with Status of Each Condition: 1. Diabetic ketoacidosis: Resolved 2. Cellulitis of chest wall: Improving 3 tooth infection: Stable 4. Gastroenteritis: Resolved 5. Chronic pain: Stable 6. Depression: Stable 7. Hypertension: Stable 8. Hypothyroidism: Stable 9. Hypomagnesemia: Resolved - HPI History of Present Illness: Patient is a 37-year-old female with a past medical history significant for type 1 diabetes with multiple hospitalizations for diabetic ketoacidosis with this being the patient's sixth hospitalization at [facility] this year, history of ruptured ovarian cyst, congestive heart failure, SVT status post ablation which resulted in complete heart block and patient now has a pacemaker, chronic chest pain, hypertension, history of pulmonary embolism, depr ession, anxiety, PTSD, panic attacks, claustrophobia, history of multiple skin infections, Graves' disease and chronic neck and back pain who presented to the emergency department with a chief complaint of nausea, vomiting and diarrhea. The patient states that she was in her normal state of health until 2 days ago when during Shari day she began feeling dizzy. She states that she noticed pain around her pacemaker site. She states later in that day she began having abdominal pain and then had diarrhea all through the night. She states the diarrhea was watery and nonstop. She denies any blood in the stools. She states that when the diarrhea would not stop yesterday she took Imodium. She states that decreased the diarrhea however she continued to have nausea and vomited. She states that she continued to have diarrhea despite the Imodium. The patient states that yesterday evening her blood glucose went up to 508 and she gave herself insulin which brought it down to the 300s then she gave herself more insulin and her blood glucose was 112 before she went to bed. She states w hen she woke up this morning she was nauseated once again and again having diarrhea. She states when she is checked her blood glucose it was 571 and that prompted her to come to the emergency department. The patient states that along with her pain around the pacemaker site and her abdominal pain she is also been having pain in the right molar area of her gums. She states that she has a tooth that has broken off in that area and she is supposed to get it removed by a dentist early next year. She states that at home she felt feverish. She denies any chills. Patient denies any headaches, blurred vision, runny nose, sore throat, nasal congestion, difficulty swallowing, shortness of air, orthopnea, PND, increased lower extremity swelling, constipation, urinary urgency, urinary frequency, dysuria, the patient does admit to polyuria and polydipsia. The patient denies any joint swelling, joint pain, recent unintentional weight loss, night sweats or any focal neurologic deficits. The patient does admit to chronic back and neck pain. She also states that she does notice that her pacemaker site is more red than usual. She states that she tried to drink fluids but could not keep them down yesterday. On presentation to the emergency department the patient was afebrile and tachycardic with a heart rate of 124. She was also hypertensive and appeared very dry on examination. Patient was having significant distress due to abdominal pain. The patient's lab work revealed that the patient was initially in DKA with a anion gap of 21, blood glucose of 316, positive serum ketones and a pH of 7.27. The patient was given a dose of IV regular insulin, IV fluids, IV antiemetics and IV Dilaudid for pain. With the IV fluids and IV insulin the patient's blood glucose dropped down to 159 in the emergency department. A BMP was repeated and patient's blood glucose was down to 127 and anion gap had closed. The patient's blood glucose continued to drop to 118. Although the patient was no longer in DKA there was concern that the patient may become hypoglycemic with labile blood sugars. The patient was placed in observation for monitoring of her blood glucose. - HOSPITAL COURSE Hospital Course: The patient was placed in observation as her diabetic ketoacidosis quickly resolved. The patient's blood glucose remained stable overnight and blood glucose was 220 2 in the morning. The patient's anion gap remained closed and she appeared much improved. The patient's abdominal pain was stable and her diarrhea resolved. The patient's chest wall cellulitis appeared to be significantly improved with clindamycin. The patient was discharged home with oral clindamycin and continued on her home regimen for her insulin. The patient will follow up with her dentist in the new year to have a tooth extraction. The patient was otherwise in stable condition at the time of discharge. - ALLERGIES Allergies/Adverse Reactions: Allergies Allergy/AdvReac Type Severity Reaction Status Date / Time sulfamethoxazole Allergy Intermediate rash/ Verified 07/22/18 11:05 [From Bactrim] adhesive Allergy Rash Verified 07/22/18 11:05 amoxicillin [Amoxicillin] Allergy unknown Verified 07/22/18 11:05 oxycodone [Oxycodone] AdvReac Intermediate hallucinate, Verified 07/22/18 11:05 vomit promethazine HCl * AdvReac Mild Nausea Verified 07/22/18 11:05 [From Phenergan] acetaminophen [From Percocet] AdvReac Hallucinati Verified 07/22/18 11:05 ons - MEDICATIONS Home Medications: Ambulatory Orders Medication Instructions Recorded Confirmed Lorazepam [Ativan] 1 mg PO QPM PRN 08/29/13 07/22/18 Insulin Glargine,Hum.rec.anlog 27 units SUBQ DAILY 09/05/13 07/22/18 [Lantus Solostar] Amitriptyline [Elavil] 50 mg PO QPM 07/03/14 07/22/18 Cyclobenzaprine [Flexeril] 10 mg PO TID PRN #15 tablet 12/01/15 07/22/18 Spironolactone 25 mg PO DAILY 04/11/17 07/22/18 Aspirin [Aspirin EC] 81 mg PO DAILY 10/08/17 07/22/18 Furosemide 80 mg PO DAILY 10/08/17 07/22/18 Levothyroxine Sodium 250 mcg PO QDAC 10/08/17 07/22/18 Metoprolol Succinate 25 mg PO QPM 10/08/17 07/22/18 Atorvastatin Calcium [Lipitor] 80 mg PO DAILY 01/20/18 07/22/18 Lansoprazole [Prevacid] 30 mg PO BIDAC 01/20/18 07/22/18 Lisinopril [Zestril] 10 mg PO DAILY 01/20/18 07/22/18 Venlafaxine HCl [Venlafaxine HCl 150 mg PO DAILY 01/20/18 07/22/18 ER] Insulin Lispro [Humalog] 2 - 15 unit SUBQ ACHS 04/02/18 07/22/18 Gabapentin 100 mg PO TID 07/22/18 07/22/18 Insulin Glargine [Lantus Solostar] 32 unit SQ QPM 07/22/18 07/22/18 Clindamycin [Cleocin] 300 mg PO Q6HR #48 capsule 07/23/18 - PHYSICAL EXAM AT DISCHARGE General Appearance: positive: No acute distress, Alert, Other (Depressed mood) Eyes Bilateral: positive: Normal inspection, PERRL, EOMI, No lid inflammation, Conjunctivae nml, No scleral icterus ENT: positive: ENT inspection nml, Pharynx nml, No signs of dehydration. negative: Purulent nasal drainage, Pharyngeal erythema, Oral lesions Neck: positive: Nml inspection, Thyroid nml, No JVD, Trachea midline. negative: Thyromegaly, Lymphadenopathy (R), Lymphadenopathy (L), Stiff neck, Carotid bruit, Tracheal deviation Respiratory: positive: Chest non-tender, No respiratory distress, Breath sounds nml. negative: Wheezes, Rales, Rhonchi Cardiovascular: positive: No murmur, No gallop, Tachycardia Peripheral Pulses: positive: 2+ Abdomen: positive: Non-tender, No organomegaly, Nml bowel sounds, No distention. negative: Guarding, Rebound, Hepatomegaly, Splenomegaly, Bruit Back: positive: Nml inspection. negative: CVA tenderness (R), CVA tenderness (L) Skin: positive: Color nml, No rash, Warm. negative: Cyanosis, Pallor, Skin rash Extremities: positive: Non-tender, Full ROM, Nml appearance, No pedal edema Neurologic/Psychiatric: positive: Oriented x3, CN's nml (2-12), Motor nml, S ensation nml, Mood/affect nml - LABS Result Diagrams: 07/23/18 06:04 07/23/18 06:04 Other Lab Results: Laboratory Results WBC 4.1 x10^3/uL (4.8-10.8) L 07/23/18 06:04 RBC 3.49 10^6/uL (4.20-5.40) L 07/23/18 06:04 Hgb 11.1 g/dL (12.0-16.0) L 07/23/18 06:04 Hct 33.7 % (37.0-47.0) L 07/23/18 06:04 MCV 96.6 fL (81.0-99.0) 07/23/18 06:04 MCH 31.7 pg (27.0-31.0) H 07/23/18 06:04 MCHC 32.8 g/dL (32.0-36.0) 07/23/18 06:04 RDW 13.6 % (12.0-15.0) 07/23/18 06:04 Plt Count 235 10^3/uL (130-450) 07/23/18 06:04 MPV 7.2 fL (7.9-10.8) L 07/23/18 06:04 Neut # (Auto) 2.5 10^3/uL (1.5-6.6) 07/23/18 06:04 Lymph # (Auto) 1.1 10^3/uL (1.5-3.5) L 07/23/18 06:04 [place] # (Auto) 0.4 10^3/uL (0.0-1.0) 07/23/18 06:04 Eos # (Auto) 0.1 10^3/uL (0.0-0.7) 07/23/18 06:04 Baso # (Auto) 0.0 10^3/uL (0.0-0.1) 07/23/18 06:04 Absolute Nucleated RBC 0.00 x10^3/uL 07/23/18 06:04 Nucleated RBC % 0.1 /100WBC 07/23/18 06:04 VBG pH 7.271 (7.31-7.41) L 07/22/18 12:10 VBG pCO2 31.6 mmHg (41-51) L 07/22/18 12:10 VBG pO2 34.6 mmHg (25-47) 07/22/18 12:10 VBG HCO3 14.2 mmol/L (23-28) L 07/22/18 12:10 VBG Total CO2 15.2 mmol/L (24-29) L 07/22/18 12:10 VBG O2 Saturation 64.3 % (60-80) 07/22/18 12:10 VBG Base Excess -11.3 mmol/L (-2 - +2) L 07/22/18 12:10 Sodium 134 mmol/L (135-145) L 07/23/18 06:04 Potassium 3.8 mmol/L (3.5-5.0) 07/23/18 06:04 Chloride 102 mmol/L (101-111) 07/23/18 06:04 Carbon Dioxide 22 mmol/L (21-32) 07/23/18 06:04 Anion Gap 10.0 (6-13) 07/23/18 06:04 BUN 13 mg/dL (6-20) 07/23/18 06:04 Creatinine 0.7 mg/dL (0.4-1.0) 07/23/18 06:04 Estimated GFR (MDRD) 93 (>89) 07/23/18 06:04 Glucose 222 mg/dL (70-100) H 07/23/18 06:04 POC Whole Bld Glucose 345 mg/dL (70 - 100) H 07/22/18 21:20 Glycated Hemoglobin 12.0 % (4.6-6.2) H 07/22/18 12:10 Estim Average Glucose 298 (70-100) H 07/22/18 12:10 Calcium 7.2 mg/dL (8.5-10.3) L 07/23/18 06:04 Phosphorus 2.8 mg/dL (2.5-4.6) 07/23/18 06:04 Magnesium 2.1 mg/dL (1.7-2.8) 07/23/18 06:04 Total Bilirubin 0.4 mg/dL (0.2-1.0) 07/23/18 06:04 AST 19 IU/L (10-42) 07/23/18 06:04 ALT 16 IU/L (10-60) 07/23/18 06:04 Alkaline Phosphatase 145 IU/L (42-121) H 07/23/18 06:04 Troponin I < 0.04 ng/mL (<0.49) 07/23/18 01:05 Total Protein 5.4 g/dL (6.7-8.2) L 07/23/18 06:04 Albumin 2.4 g/dL (3.2-5.5) L 07/23/18 06:04 Globulin 3.0 g/dL (2.1-4.2) 07/23/18 06:04 Albumin/Globulin Ratio 0.8 (1.0-2.2) L 07/23/18 06:04 Lipase 27 U/L (22-51) 07/22/18 12:10 Serum Ketones SMALL (NEGATIVE) H 07/22/18 14:04 - DIAGNOSTIC IMAGING Diagnostic Imaging Results: Final report reviewed Diagnostic Imaging Results Comments: Chest x-ray Impression: No evidence of airspace disease. - FOLLOW UP Follow Up: The patient presented with abdominal pain, nausea, vomiting and diarrhea. She was found to be initially in DKA on presentation to the emergency department. Patient's DKA resolved quickly with IV regular insulin. Patient was placed back on her normal insulin regimen and blood glucose was controlled. The patient was found to have a skin and soft tissue infection of her chest wall near her pacemaker. The patient was started on treatment with clindamycin. The patient appeared to respond well to the treatment. She was discharged home on continued clindamycin for 6 more days. The patient also appeared to have a early tooth infection which will also be treated with the clindamycin. The patient was in stable condition at the time of discharge and will follow up with her primary care physician and dentist. - TIME SPENT Time Spent in Discharge (Minutes): 40
[2018-07-23 14:01] VITALS: BP 178/81
== END 2018-07-23 14:11 | disposition home or self-care (01) ==
LOC: ED 10:57 → ICU 13:01 → INTOOBSV 13:01 → MS2 15:45 → OBS 07-23 01:08
PROVIDERS: ADMIT Internal Medicine; ATTEND Internal Medicine
DX: E10.10 Type 1 diabetes mellitus with ketoacidosis without coma (principal); L03.313 Cellulitis of chest wall; I11.0 Hypertensive heart disease with heart failure; K04.7 Periapical abscess without sinus; K52.9 Noninfective gastroenteritis and colitis, unspecified; G89.29 Other chronic pain; F32.9 Major depressive disorder, single episode, unspecified; E03.9 Hypothyroidism, unspecified; E83.42 Hypomagnesemia; I50.9 Heart failure, unspecified; I45.5 Other specified heart block; E05.00 Thyrotoxicosis with diffuse goiter without thyrotoxic crisis or storm; F41.0 Panic disorder [episodic paroxysmal anxiety]; F43.10 Post-traumatic stress disorder, unspecified; R07.2 Precordial pain; M54.2 Cervicalgia; M54.9 Dorsalgia, unspecified; E10.42 Type 1 diabetes mellitus with diabetic polyneuropathy; K21.9 Gastro-esophageal reflux disease without esophagitis; F40.240 Claustrophobia; M10.9 Gout, unspecified; Z95.0 Presence of cardiac pacemaker; Z79.4 Long term (current) use of insulin; Z79.82 Long term (current) use of aspirin; Z79.899 Other long term (current) drug therapy; Z86.711 Personal history of pulmonary embolism; Z86.718 Personal history of other venous thrombosis and embolism; Z23 Encounter for immunization
CPT/HCPCS: 36415; 71045; 80048; 80053; 82009; 82803; 83036; 83690; 83735; 84100; 84484; 85025; 90471; 90686; 96361; 96365; 96366; 96367; 96372; 96375; 96376; 99283; 99284; A9270; G0378; J1170; J1650; J1815; 82947; 96374

== ENCOUNTER 2018-09-02 10:54 | Emergency (ER) | payer MEDICAID, MEDICARE ==
[2018-09-02 11:43] LABS: BILIRUBIN,URINE NEGATIVE (NEGATIVE); GLUCOSE, URINE (UA) >=1000 mg/dL (NEGATIVE); KETONES,URINE (UA) 40 mg/dL (NEGATIVE); LEUKOCYTE ESTERASE, URINE NEGATIVE (NEGATIVE); NITRITE,URINE NEGATIVE (NEGATIVE); OCCULT BLOOD,URINE TRACE-INTA (NEGATIVE); PH,URINE 5.5 PH (5.0-7.5); PROTEIN,URINE 30 mg/dL (NEGATIVE); UROBILINOGEN,URINE 0.2 (NORMAL) E.U./dL (NORMAL)
[2018-09-02 11:44] LABS: CLARITY,URINE CLEAR (CLEAR)
[2018-09-02 11:51] LABS: BASOPHILS # (AUTO) 0.1 10^3/uL (0.0-0.1); BASOPHILS % (AUTO) 1.5 %; EOSINOPHILS # (AUTO) 0.1 10^3/uL (0.0-0.7); EOSINOPHILS % (AUTO) 0.9 %; HGB - HEMOGLOBIN 13.4 g/dL (12.0-16.0); LYMPHOCYTES % (AUTO) 13.9 %; MEAN CORPUSCULAR HEMOGLOBIN 32.4 pg (27.0-31.0); MEAN CORPUSCULAR HGB CONC 34.2 g/dL (32.0-36.0); MEAN CORPUSCULAR VOLUME 94.6 fL (81.0-99.0); MEAN PLATELET VOLUME 7.8 fL (7.9-10.8); MONOCYTES # (AUTO) 0.5 10^3/uL (0.0-1.0); MONOCYTES % (AUTO) 6.3 %; NEUTROPHILS # (AUTO) 5.7 10^3/uL (1.5-6.6); NEUTROPHILS % (AUTO) 77.4 %; PLT - PLATELET COUNT 244 10^3/uL (130-450); RED BLOOD COUNT 4.14 10^6/uL (4.20-5.40); RED CELL DISTRIBUTION WIDTH 12.9 % (12.0-15.0); WHITE BLOOD COUNT 7.4 x10^3/uL (4.8-10.8)
--- NOTE | 2018-09-02 11:51 | ED Physician Documentation ---
History of Present Illness - Stated complaint Stated Complaint: CHEST PAIN, ABD PX - Chief complaint Chief Complaint: Cardiac - History obtained from History obtained from: Patient - History of Present Illness Timing: Yesterday - Additonal information Additional information: 38-year-old female began to feel sick yesterday with lightheadedness and dizziness and she has a history of type 1 diabetes and is brittle. This morning she awoke with left lower quadrant abdominal pain that radiated up to her left flank. This pain was severe and without modifying factors. She continues to have this pain on the left side. She has been taking an [id number] supplement forskolin for about 1 week. Review of Systems Constitutional: reports: Fatigue. denies: Fever Eyes: denies: Decreased vision Ears: denies: Ear pain Nose: reports: Rhinorrhea / runny nose, Congestion Throat: denies: Sore throat Cardiac: reports: Chest pain / pressure. denies: Palpitations, Pedal edema, Calf pain Respiratory: reports: Dyspnea, Cough GI: reports: Abdominal Pain, Nausea. denies: Vomiting, Constipation, Diarrhea : denies: Dysuria, Frequency Skin: denies: Rash Musculoskeletal: reports: Back pain. denies: Neck pain, Extremity pain PD PAST MEDICAL HISTORY - Past Medical History Cardiovascular: Congestive heart failure, Hypertension, High cholesterol, Deep vein thrombosis, Pulmonary embolism, Arrhythmia, Other Respiratory: Pneumonia, Other Neuro: Peripheral neuropathy Endocrine/Autoimmune: Type 1 diabetes, HyPOthyroidism, Other GI: GERD VEST TAILOR: Endometriosis, Fibroids, Other : None HEENT: None Psych: Depression, Anxiety, Bipolar disorder, Panic attacks, Post traumatic stress disorder, Claustrophobia Musculoskeletal: Gout, Chronic back pain Derm: Other - Past Surgical History Past Surgical History: Yes General: Cholecystectomy, Appendectomy, Hiatal hernia repair, Colonoscopy, EGD /VEST TAILOR: Oophrectomy, Other Cardiovascular: Pacemaker, Other HEENT: Myringotomy (tubes), Tonsil/Adenoidectomy, Other - Present Medications Home Medications: Ambulatory Orders Medication Instructions Recorded Confirmed RX: Lorazepam [Ativan] 1 mg PO QPM PRN 08/29/13 07/22/18 RX: Insulin Glargine,Hum.rec.anlog 27 units SUBQ DAILY 09/05/13 07/22/18 [Lantus Solostar] RX: Amitriptyline [Elavil] 50 mg PO QPM 07/03/14 07/22/18 RX: Cyclobenzaprine [Flexeril] 10 mg PO TID PRN #15 tablet 12/01/15 07/22/18 RX: Spironolactone 25 mg PO DAILY 04/11/17 07/22/18 RX: Aspirin [Aspirin EC] 81 mg PO DAILY 10/08/17 07/22/18 RX: Furosemide 80 mg PO DAILY 10/08/17 07/22/18 RX: Levothyroxine Sodium 250 mcg PO QDAC 10/08/17 07/22/18 RX: Metoprolol Succinate 25 mg PO QPM 10/08/17 07/22/18 RX: Atorvastatin Calcium [Lipitor] 80 mg PO DAILY 01/20/18 07/22/18 RX: Lansoprazole [Prevacid] 30 mg PO BIDAC 01/20/18 07/22/18 RX: Lisinopril [Zestril] 10 mg PO DAILY 01/20/18 07/22/18 RX: Venlafaxine HCl [Venlafaxine 150 mg PO DAILY 01/20/18 07/22/18 HCl ER] RX: Insulin Lispro [Humalog] 2 - 15 unit SUBQ ACHS 04/02/18 07/22/18 RX: Gabapentin 100 mg PO TID 07/22/18 07/22/18 RX: Insulin Glargine [Lantus 32 unit SQ QPM 07/22/18 07/22/18 Solostar] RX: Clindamycin [Cleocin] 300 mg PO Q6HR #48 capsule 07/23/18 Hydrocodone/Acetaminophen 1 - 2 each PO Q6H PRN #14 tablet 09/02/18 [Hydrocodon-Acetaminophen 5-325] Ondansetron Odt [Zofran] 4 mg TL Q6H PRN #10 tablet 09/02/18 - Allergies Allergies/Adverse Reactions: Allergies Allergy/AdvReac Type Severity Reaction Status Date / Time sulfamethoxazole Allergy Intermediate rash/ Verified 07/22/18 11:05 [From Bactrim] adhesive Allergy Rash Verified 07/22/18 11:05 amoxicillin [Amoxicillin] Allergy unknown Verified 07/22/18 11:05 oxycodone [Oxycodone] AdvReac Intermediate hallucinate, Verified 12/27/18 11:05 vomit promethazine HCl * AdvReac Mild Nausea Verified 07/22/18 11:05 [From Phenergan] acetaminophen [From Percocet] AdvReac Hallucinati Verified 07/22/18 11:05 ons - Social History Does the pt smoke?: No Smoking Status: Never smoker Does the pt drink ETOH?: No Does the pt have substance abuse?: No - Immunizations Immunizations are current?: Yes - POLST Patient has POLST: No POLST Status: Full Code PD ED PE NORMAL - Vitals Vital signs reviewed: Yes (tachy and hypertensive ) - General General: Alert and oriented X 3, Well developed/nourished - HEENT HEENT: Atraumatic, PERRL, EOMI, Ears normal, Other (dry mucous membranes. A bad tooth on the right lower is not currently inflamed. ) - Neck Neck: Supple, no meningeal sign, No bony TTP - Cardiac Cardiac: No murmur, Other (tadhcy ) - Respiratory Respiratory: No respiratory distress, Clear bilaterally - Abdomen Abdomen: Soft, Non tender - Back Back: No CVA TTP, No spinal TTP - Derm Derm: Normal color, Warm and dry, No rash - Extremities Extremities: No deformity, No edema - Neuro Neuro: Alert and oriented X 3, dental mold maker 2-12 intact, No motor deficit, No sensory deficit, Normal speech Eye Opening: Spontaneous Motor: Obeys Commands Verbal: Oriented GCS Score: 15 - Psych Psych: Other (mood is defeated and the affect is labile ) Results - Vitals Vitals: Vital Signs - 24 hr 09/02/18 09/02/18 09/02/18 11:05 14:00 16:45 Temperature 36.7 C Heart Rate 125 H 109 H 120 H Respiratory 18 20 20 Rate Blood Pressure 149/99 H 157/73 H 135/69 H O2 Saturation 100 98 96 09/02/18 09/02/18 09/02/18 17:00 17:30 18:00 Temperature Heart Rate 111 H 114 H 110 H Respiratory 16 19 12 Rate Blood Pressure 136/62 H 128/63 126/62 O2 Saturation 99 98 98 09/02/18 09/02/18 09/02/18 18:30 19:00 19:58 Temperature Heart Rate 110 H 110 H 110 H Respiratory 18 20 20 Rate Blood Pressure 136/52 H 136/77 H 124/77 O2 Saturation 98 97 95 Oxygen O2 Source Room air - EKG (time done) 1100 Rate: Rate (enter#) (126) Rhythm: Paced Compare to prior EKG: Changed from prior EKG (SPT 06-23-18 rate has increased) Computer interpretation: Agree with computer - Labs Labs: Laboratory Tests 09/02/18 09/02/18 09/02/18 11:24 11:43 11:43 WBC 7.4 RBC 4.14 L Hgb 13.4 Hct 39.1 MCV 94.6 MCH 32.4 H MCHC 34.2 RDW 12.9 Plt Count 244 MPV 7.8 L Neut # (Auto) 5.7 Lymph # (Auto) 1.0 L [place] # (Auto) 0.5 Eos # (Auto) 0.1 Baso # (Auto) 0.1 Absolute Nucleated RBC 0.00 Nucleated RBC % 0.0 Sodium 128 L Potassium 3.9 Chloride 95 L Carbon Dioxide 20 L Anion Gap 13.0 BUN 27 H Creatinine 0.6 Estimated GFR (MDRD) 111 Glucose 379 H POC Whole Bld Glucose Calcium 8.7 Total Bilirubin 0.8 AST 23 ALT 15 Alkaline Phosphatase 143 H Troponin I Total Protein 7.4 Albumin 3.1 L Globulin 4.3 H Albumin/Globulin Ratio 0.7 L Lipase 21 L Urine Color LIGHT YELLOW Urine Clarity CLEAR Urine pH 5.5 Ur Specific [place] 1.015 Urine Protein 30 H Urine Glucose (UA) >=1000 H Urine Ketones 40 H Urine Occult Blood TRACE-INTA Urine Nitrite NEGATIVE Urine Bilirubin NEGATIVE Urine Urobilinogen 0.2 (NORMAL) Ur Leukocyte Esterase NEGATIVE Urine RBC 0-5 Urine WBC 0-3 Ur Squamous Epith Cells RARE Squamous Urine Bacteria Rare Ur Microscopic Review INDICATED Urine Culture Comments NOT INDICATED Serum Ketones 09/02/18 09/02/18 09/02/18 11:43 11:43 17:11 WBC RBC Hgb Hct MCV MCH MCHC RDW Plt Count MPV Neut # (Auto) Lymph # (Auto) [place] # (Auto) Eos # (Auto) Baso # (Auto) Absolute Nucleated RBC Nucleated RBC % Sodium Potassium Chloride Carbon Dioxide Anion Gap BUN Creatinine Estimated GFR (MDRD) Glucose POC Whole Bld Glucose 343 H Calcium Total Bilirubin AST ALT Alkaline Phosphatase Troponin I < 0.04 Total Protein Albumin Globulin Albumin/Globulin Ratio Lipase Urine Color Urine Clarity Urine pH Ur Specific [place] Urine Protein Urine Glucose (UA) Urine Ketones Urine Occult Blood Urine Nitrite Urine Bilirubin Urine Urobilinogen Ur Leukocyte Esterase Urine RBC Urine WBC Ur Squamous Epith Cells Urine Bacteria Ur Microscopic Review Urine Culture Comments Serum Ketones NEGATIVE 09/02/18 19:24 WBC RBC Hgb Hct MCV MCH MCHC RDW Plt Count MPV Neut # (Auto) Lymph # (Auto) [place] # (Auto) Eos # (Auto) Baso # (Auto) Absolute Nucleated RBC Nucleated RBC % Sodium Potassium Chloride Carbon Dioxide Anion Gap BUN Creatinine Estimated GFR (MDRD) Glucose POC Whole Bld Glucose 276 H Calcium Total Bilirubin AST ALT Alkaline Phosphatase Troponin I Total Protein Albumin Globulin Albumin/Globulin Ratio Lipase Urine Color Urine Clarity Urine pH Ur Specific [place] Urine Protein Urine Glucose (UA) Urine Ketones Urine Occult Blood Urine Nitrite Urine Bilirubin Urine Urobilinogen Ur Leukocyte Esterase Urine RBC Urine WBC Ur Squamous Epith Cells Urine Bacteria Ur Microscopic Review Urine Culture Comments Serum Ketones - Rads (name of study) 1 view chest Radiology: Prelim report reviewed (Impression: No active cardiopulmonary disease.), EMP read indepedently, See rad report Procedures - IVC sono (time) 1203 Bedside IVC sono: IVC measures (cm) (0.87), IVC collapsed c insp (cm) (complete), Dehydration (est 2 liter deficit) PD MEDICAL DECISION MAKING - ED course Complexity details: reviewed old records, reviewed results, re-evaluated p atient, considered differential, d/w patient ED course: Well-known brittle diabetic 38-year-old female patient has elevated blood sugar and reduced volume with serum ketones. She is found to be dehydrated on interrogation the inferior vena cava and she is taking a [id number] supplement. Forskolin can cause tachycardia and weight loss and I suspect this is secondary to a diuretic effect. Patient is administered saline and insulin. IV access is a problem as usual and we eventually asked our friends in anesthesia to help out and they were able to establish access. The patient is administered IV saline and insulin with improvement and she feels reasonable to go home on her sliding scale insulin. She will stop the Forskolin. Departure - Departure Disposition: 01 Home, Self Care Clinical Impression: Dehydration, Type 1 diabetes mellitus with hyperglycemia Condition: Stable Instructions: ED Hyperglycemia Diabetic, ED Dehydration Follow-Up: Amisha Staton MD [Primary Care Provider] - Prescriptions: Hydrocodone/Acetaminophen [Hydrocodon-Acetaminophen 5-325] 1 - 2 each PO Q6H PRN #14 tablet PRN Reason: pain Ondansetron Odt [Zofran] 4 mg TL Q6H PRN #10 tablet PRN Reason: Nausea / Vomiting Discharge Date/Time: 09/02/18 20:00
[2018-09-02 11:55] LABS: BACTERIA,URINE Rare /HPF (None Seen); RBC,URINE 0-5 /HPF (0-5); SQUAMOUS EPITHELIAL CELL,UR RARE Squamous (<= Few)
[2018-09-02 12:03] LABS: ALBUMIN 3.1 g/dL (3.2-5.5); ALBUMIN/GLOBULIN RATIO 0.7 (1.0-2.2); BILIRUBIN,TOTAL 0.8 mg/dL (0.2-1.0); CALCIUM 8.7 mg/dL (8.5-10.3); CREATININE 0.6 mg/dL (0.4-1.0); TOTAL PROTEIN 7.4 g/dL (6.7-8.2)
[2018-09-02] MEDS ORDERED: SODIUM CHLORIDE 0.9% 1,000 ML IV ONE (12:13)
[2018-09-02] MEDS ORDERED: HYDROmorphone 1 MG/ML CARPUJECT IVP STA ×2 (12:13→17:09)
[2018-09-02] MEDS ORDERED: ONDANSETRON 4 MG/2 ML VIAL IVP STA (12:13)
[2018-09-02] MEDS ORDERED: INSULIN REGULAR HUMAN 100 UNIT/1 ML 10 ML MDV IVP STA ×2 (12:15→14:23)
--- NOTE | 2018-09-02 12:25 | XRAY Report ---
Reason: cp Procedure Date: 09/02/2018 Accession Number: [id number] / [id number] Procedure: XR - Chest 1 View X-Ray CPT Code: 42348 FULL RESULT: EXAM: CHEST RADIOGRAPHY EXAM DATE: 09/02/2018 12:02 PM. CLINICAL HISTORY: Cp. COMPARISON: CHEST 1 VIEW 07/22/2018 1:45 PM CHEST 2 VIEW 04/01/2018 2:41 PM. TECHNIQUE: 1 view. FINDINGS: Lungs/Pleura: No focal opacities evident. No pleural effusion. No pneumothorax. Mediastinum: Within exam limitations, the cardiomediastinal contour is normal. Other: 3-lead lead pacer tips in the right atrium, right ventricle. IMPRESSION: No active cardiopulmonary disease RADIA
[2018-09-02 19:58] VITALS: BP 124/77
== END 2018-09-02 20:00 | disposition home or self-care (01) ==
LOC: ED 10:54
DX: E86.0 Dehydration (principal); E10.65 Type 1 diabetes mellitus with hyperglycemia; R07.9 Chest pain, unspecified; R94.31 Abnormal electrocardiogram [ECG] [EKG]; E03.9 Hypothyroidism, unspecified; I11.0 Hypertensive heart disease with heart failure; I50.9 Heart failure, unspecified; E78.00 Pure hypercholesterolemia, unspecified; Z86.718 Personal history of other venous thrombosis and embolism; Z86.711 Personal history of pulmonary embolism; Z95.0 Presence of cardiac pacemaker; Z79.82 Long term (current) use of aspirin
CPT/HCPCS: 36415; 71045; 80053; 81001; 82009; 83690; 84484; 85025; 93005; 96361; 96374; 96376; 99284; J1170; J1815; 81003; 82803; 87086

== ENCOUNTER 2018-09-04 12:59 | Inpatient (IN) | payer MEDICARE, MEDICAID ==
[2018-09-04] MEDS ORDERED: HYDROmorphone 1 MG/ML CARPUJECT IVP STA ×2 (13:26→15:05)
[2018-09-04] MEDS ORDERED: SODIUM CHLORIDE 0.9% 1,000 ML IV ONE (13:26)
[2018-09-04] MEDS ORDERED: ONDANSETRON 4 MG/2 ML VIAL IVP STA (13:26)
[2018-09-04] MEDS ORDERED: INSULIN REGULAR HUMAN 100 UNIT/1 ML 10 ML MDV IVP STA (13:27)
--- NOTE | 2018-09-04 13:30 | ED Physician Documentation ---
History of Present Illness - Stated complaint Stated Complaint: CHEST PX/HIGH BS - Chief complaint Chief Complaint: General - History obtained from History obtained from: Patient - History of Present Illness Timing: Today (This is a 38-year-old woman with chronic brittle diabetes and chronic abdominal and chest pain due to ovarian cysts who presents with continued lower abdominal pain. She was seen here a few days ago and had cyst pain and uncontrolled blood sugars. In the interim her father had a heart attack and she is been sort of out of her normal routine. She woke up this morning her blood sugar was about 500 and she took some long-acting insulin and has not had any since but checked it again just prior to arrival and it was still 500. She does not feel like she is in DKA. No possibility of .) Review of Systems Constitutional: denies: Fever, Chills Cardiac: reports: Chest pain / pressure (less than 2 days ago). denies: Palpitations Respiratory: reports: Dyspnea GI: reports: Abdominal Pain. 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: Endometriosis, Fibroids, Other : None HEENT: None Psych: Depression, Anxiety, Bipolar disorder, Panic attacks, Post traumatic stress disorder, Claustrophobia Musculoskeletal: Gout, Chronic back pain Derm: Other - Past Surgical History Past Surgical History: Yes General: Cholecystectomy, Appendectomy, Hiatal hernia repair, Colonoscopy, EGD /SUPERVISOR ELECTROLYTIC TINNING: Oophrectomy, Other Cardiovascular: Pacemaker, Other HEENT: Myringotomy (tubes), Tonsil/Adenoidectomy, Other - Present Medications Home Medications: Ambulatory Orders Medication Instructions Recorded Confirmed Lorazepam [Ativan] 1 mg PO QPM PRN 08/29/13 07/22/18 Insulin Glargine,Hum.rec.anlog 27 units SUBQ DAILY 09/05/13 07/22/18 [Lantus Solostar] Amitriptyline [Elavil] 50 mg PO QPM 07/03/14 07/22/18 Cyclobenzaprine [Flexeril] 10 mg PO TID PRN #15 tablet 12/01/15 07/22/18 Spironolactone 25 mg PO DAILY 04/11/17 07/22/18 Aspirin [Aspirin EC] 81 mg PO DAILY 10/08/17 07/22/18 Furosemide 80 mg PO DAILY 10/08/17 07/22/18 Levothyroxine Sodium 250 mcg PO QDAC 10/08/17 07/22/18 Metoprolol Succinate 25 mg PO QPM 10/08/17 07/22/18 Atorvastatin Calcium [Lipitor] 80 mg PO DAILY 01/20/18 07/22/18 Lansoprazole [Prevacid] 30 mg PO BIDAC 01/20/18 07/22/18 Lisinopril [Zestril] 10 mg PO DAILY 01/20/18 07/22/18 Venlafaxine HCl [Venlafaxine HCl 150 mg PO DAILY 01/20/18 07/22/18 ER] Insulin Lispro [Humalog] 2 - 15 unit SUBQ ACHS 04/02/18 07/22/18 Gabapentin 100 mg PO TID 07/22/18 07/22/18 Insulin Glargine [Lantus Solostar] 32 unit SQ QPM 07/22/18 07/22/18 Clindamycin [Cleocin] 300 mg PO Q6HR #48 capsule 07/23/18 Hydrocodone/Acetaminophen 1 - 2 each PO Q6H PRN #14 tablet 09/02/18 [Hydrocodon-Acetaminophen 5-325] Ondansetron Odt [Zofran] 4 mg TL Q6H PRN #10 tablet 09/02/18 - Allergies Allergies/Adverse Reactions: Allergies Allergy/AdvReac Type Severity Reaction Status Date / Time sulfamethoxazole Allergy Intermediate rash/ Verified 09/04/18 13:13 [From Bactrim] adhesive Allergy Rash Verified 09/04/18 13:13 amoxicillin [Amoxicillin] Allergy unknown Verified 09/04/18 13:13 oxycodone [Oxycodone] AdvReac Intermediate hallucinate, Verified 09/04/18 13:13 vomit promethazine HCl * AdvReac Mild Nausea Verified 09/04/18 13:13 [From Phenergan] acetaminophen [From Percocet] AdvReac Hallucinati Verified 09/04/18 13:13 ons - Social History Does the pt smoke?: No Smoking Status: Never smoker Does the pt drink ETOH?: No Does the pt have substance abuse?: No - Immunizations Immunizations are current?: Yes - POLST Patient has POLST: No POLST Status: Full Code PD ED PE NORMAL - Vitals Vital signs reviewed: Yes - General General: Alert and oriented X 3, No acute distress - HEENT HEENT: PERRL, EOMI - Neck Neck: Supple, no meningeal sign, No bony TTP - Cardiac Cardiac: RRR, No murmur - Respiratory Respiratory: No respiratory distress, Clear bilaterally - Abdomen Abdomen: Normal bowel sounds, Soft, Non tender - Extremities Extremities: No edema, No calf tenderness / cord - Neuro Neuro: Alert and oriented X 3, Normal speech Results - Vitals Vitals: Vital Signs - 24 hr 09/04/18 13:06 Temperature 36.6 C Heart Rate 118 H Respiratory 20 Rate Blood Pressure 161/92 H O2 Saturation 100 Oxygen O2 Source Room air - EKG (time done) 1304 Rate: Rate (enter#) Rhythm: Other (A-sensed, Vpaced) Computer interpretation: Agree with computer - Labs Labs: Laboratory Tests 09/04/18 09/04/18 09/04/18 13:14 13:30 13:30 WBC 8.1 RBC 4.49 Hgb 14.5 Hct 43.0 MCV 95.7 MCH 32.3 H MCHC 33.8 RDW 13.1 Plt Count 289 MPV 8.0 Neut # (Auto) 7.0 H Lymph # (Auto) 0.7 L Mathews # (Auto) 0.3 Eos # (Auto) 0.0 Baso # (Auto) 0.0 Absolute Nucleated RBC 0.01 Nucleated RBC % 0.1 VBG pH VBG pCO2 VBG pO2 VBG HCO3 VBG Total CO2 VBG O2 Saturation VBG Base Excess Sodium 127 L Potassium 3.8 Chloride 90 L Carbon Dioxide 13 L Anion Gap 24.0 H BUN 18 Creatinine 1.0 Estimated GFR (MDRD) 61 L Glucose 483 H POC Whole Bld Glucose 509 H* Calcium 8.7 Total Bilirubin 2.0 H AST 19 ALT 18 Alkaline Phosphatase 167 H Troponin I Total Protein 9.0 H Albumin 3.6 Globulin 5.4 H Albumin/Globulin Ratio 0.7 L Lipase 22 Urine Color Urine Clarity Urine pH Ur Specific Ramsey Urine Protein Urine Glucose (UA) Urine Ketones Urine Occult Blood Urine Nitrite Urine Bilirubin Urine Urobilinogen Ur Leukocyte Esterase Ur Microscopic Review Urine Culture Comments Serum Ketones MODERATE H 09/04/18 09/04/18 09/04/18 13:30 13:30 14:18 WBC RBC Hgb Hct MCV MCH MCHC RDW Plt Count MPV Neut # (Auto) Lymph # (Auto) Mathews # (Auto) Eos # (Auto) Baso # (Auto) Absolute Nucleated RBC Nucleated RBC % VBG pH 7.308 L VBG pCO2 27.9 L VBG pO2 49.4 H VBG HCO3 13.7 L VBG Total CO2 14.5 L VBG O2 Saturation 85.4 H VBG Base Excess -10.9 L Sodium Potassium Chloride Carbon Dioxide Anion Gap BUN Creatinine Estimated GFR (MDRD) Glucose POC Whole Bld Glucose Calcium Total Bilirubin AST ALT Alkaline Phosphatase Troponin I < 0.04 Total Protein Albumin Globulin Albumin/Globulin Ratio Lipase Urine Color LT. YELLOW Urine Clarity CLEAR Urine pH 5.0 Ur Specific Ramsey 1.020 Urine Protein TRACE Urine Glucose (UA) 500 H Urine Ketones >=80 H Urine Occult Blood TRACE-LYSE Urine Nitrite NEGATIVE Urine Bilirubin NEGATIVE Urine Urobilinogen 0.2 (NORMAL) Ur Leukocyte Esterase NEGATIVE Ur Microscopic Review NOT INDICATED Urine Culture Comments NOT INDICATED Serum Ketones Procedures - General procedure General procedure: She is difficult for IV access, 17 attempts were made 2 days ago. I personally placed a long 22-gauge IV in the right deep brachial vein using real-time ultrasound guidance after ChloraPrep the flushed and latoya well. Unfortunately this IV promptly blew and I placed a second long 22-gauge IV using real-time ultrasound guidance after ChloraPrep in a more superficial vein over the left bicep that also flushed well. PD MEDICAL DECISION MAKING - ED course ED course: This is a 38-year-old woman with brittle diabetes presents with mild DKA. She was administered IV fluids and insulin and I spoke with Dr. Argueta for admission at 2:48 PM. Departure - Departure Disposition: 66 [facility] DC/Xfer Clinical Impression: DKA (diabetic ketoacidoses) Qualifiers: Diabetes mellitus type: type 1 Diabetes mellitus complication detail: without coma Qualified Code(s): E10.10 - Type 1 diabetes mellitus with ketoacidosis without coma Condition: Serious
[2018-09-04 13:41] LABS: BASOPHILS % (AUTO) 0.5 %; EOSINOPHILS % (AUTO) 0.3 %; HGB - HEMOGLOBIN 14.5 g/dL (12.0-16.0); LYMPHOCYTES # (AUTO) 0.7 10^3/uL (1.5-3.5); LYMPHOCYTES % (AUTO) 8.9 %; MEAN CORPUSCULAR HEMOGLOBIN 32.3 pg (27.0-31.0); MEAN CORPUSCULAR HGB CONC 33.8 g/dL (32.0-36.0); MEAN CORPUSCULAR VOLUME 95.7 fL (81.0-99.0); MONOCYTES # (AUTO) 0.3 10^3/uL (0.0-1.0); MONOCYTES % (AUTO) 3.8 %; NEUTROPHILS % (AUTO) 86.5 %; PLT - PLATELET COUNT 289 10^3/uL (130-450); RED BLOOD COUNT 4.49 10^6/uL (4.20-5.40); RED CELL DISTRIBUTION WIDTH 13.1 % (12.0-15.0); WHITE BLOOD COUNT 8.1 x10^3/uL (4.8-10.8)
[2018-09-04 13:43] LABS: BILIRUBIN,URINE NEGATIVE (NEGATIVE); GLUCOSE, URINE (UA) 500 mg/dL (NEGATIVE); KETONES,URINE (UA) >=80 mg/dL (NEGATIVE); LEUKOCYTE ESTERASE, URINE NEGATIVE (NEGATIVE); NITRITE,URINE NEGATIVE (NEGATIVE); OCCULT BLOOD,URINE TRACE-LYSE (NEGATIVE); PROTEIN,URINE TRACE mg/dL (NEGATIVE); UROBILINOGEN,URINE 0.2 (NORMAL) E.U./dL (NORMAL)
[2018-09-04 13:46] LABS: CLARITY,URINE CLEAR (CLEAR)
[2018-09-04 13:47] LABS: KETONES, SERUM (ACETEST) MODERATE (NEGATIVE)
[2018-09-04 13:51] LABS: ALBUMIN 3.6 g/dL (3.2-5.5); ALBUMIN/GLOBULIN RATIO 0.7 (1.0-2.2); ALKALINE PHOSPHATASE 167 IU/L (42-121); ALT ALANINE AMINOTRANSFERASE 18 IU/L (10-60); AST ASPARTATE AMINOTRANSFERASE 19 IU/L (10-42); BUN - BLOOD UREA NITROGEN 18 mg/dL (6-20); CALCIUM 8.7 mg/dL (8.5-10.3); CARBON DIOXIDE - CO2 13 mmol/L (21-32); CHLORIDE 90 mmol/L (101-111); GFR - MDRD 61 (>89); GLUCOSE 483 mg/dL (70-100); LIPASE 22 U/L (22-51); SODIUM 127 mmol/L (135-145)
[2018-09-04 14:25] LABS: VBG BASE EXCESS -10.9 mmol/L (-2 - +2); VBG PCO2 27.9 mmHg (41-51); VBG PH 7.308 (7.31-7.41); VBG PO2 49.4 mmHg (25-47); VBG TOTAL CO2 14.5 mmol/L (24-29)
[2018-09-04] MEDS ORDERED: NS W/20 MEQ KCL 1,000 ML IV STA ×2 (14:46→19:49)
[2018-09-04] MEDS ORDERED: INSULIN REGULAR HUMAN 100 UNIT in SODIUM CHLORIDE 0.9% 100ML 99 ML IV SCH (15:00)
[2018-09-04] MEDS ORDERED: SODIUM CHLORIDE 0.9% 1,000 ML IV SCH (15:00)
[2018-09-04 15:01] LABS: HCG UR QUAL NEGATIVE
[2018-09-04] MEDS: INSULIN REGULAR HUMAN 100 UNIT in SODIUM CHLORIDE 0.9% 100ML 99 ML IV SCH ×2 (15:17→17:25)
[2018-09-04 15:42] LABS: CALCIUM 8.2 mg/dL (8.5-10.3); CREATININE 0.8 mg/dL (0.4-1.0)
[2018-09-04 16:16] LABS: HB2 TOTAL 16.6 g/dL; HEMOGLOBIN A1C 1.49 g/dL; HEMOGLOBIN A1C % 10.4 % (4.6-6.2)
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
[2018-09-04] MEDS ORDERED: IOVERSOL 320 100 ML VIAL IVP ONE ×3 (16:22→21:54)
[2018-09-04] MEDS ORDERED: hydrALAZINE INJ 20 MG/ML VIAL IVP PRN (16:32)
[2018-09-04] MEDS ORDERED: CYCLOBENZAPRINE 10 MG TABLET PO PRN (16:52)
[2018-09-04] MEDS ORDERED: LORazepam 1 MG TABLET PO PRN (16:53)
[2018-09-04 17:42] LABS: VBG PH 7.4 (7.31-7.41)
[2018-09-04 17:43] LABS: VBG BASE EXCESS -2.8 mmol/L (-2 - +2); VBG PCO2 35.3 mmHg (41-51); VBG PO2 86.6 mmHg (25-47); VBG TOTAL CO2 22.5 mmol/L (24-29)
[2018-09-04 17:48] LABS: CALCIUM 7.7 mg/dL (8.5-10.3); CREATININE 0.5 mg/dL (0.4-1.0); MAGNESIUM 1.8 mg/dL (1.7-2.8)
[2018-09-04] MEDS: HYDROmorphone 0.5 MG/0.5 ML SYRINGE IVP PRN ×3 (17:48→22:15)
[2018-09-04] MEDS ORDERED: POTASSIUM CHLOR 10 MEQ/100 ML 10 MEQ/100 ML BAG IV ONE (18:09)
[2018-09-04] MEDS ORDERED: DEXTROSE 5%-0.45% NACL 1,000 ML IV SCH (18:14)
[2018-09-04] MEDS ORDERED: SODIUM CHLORIDE FLUSH 0.9% 10 ML SYRINGE ONE ×2 (19:36→20:02)
[2018-09-04] MEDS ORDERED: SODIUM CHLORIDE FLUSH 0.9% 10 ML SYRINGE IVP PRN (19:44)
[2018-09-04] MEDS: ATORVASTATIN 40 MG TABLET PO SCH (20:03)
[2018-09-04] MEDS: AMITRIPTYLINE 25 MG TABLET PO SCH (20:03)
[2018-09-04 20:39] LABS: MUDS CUTOFF CONCENTRATIONS CUTOFF CONC BELOW:
[2018-09-04 20:53] LABS: AMPHETAMINE SCREEN,URINE NEGATIVE (NEGATIVE); BENZODIAZEPINES SCREEN, URINE NEGATIVE (NEGATIVE); COCAINE SCREEN URINE NEGATIVE (NEGATIVE); METHADONE SCREEN, URINE NEGATIVE (NEGATIVE); METHAMPHETAMINES SCREEN, URINE NEGATIVE (NEGATIVE); OPIATE SCREEN, URINE POSITIVE (NEGATIVE); OXYCODONE SCREEN, URINE NEGATIVE (NEGATIVE); PROPOXYPHENE SCREEN, URINE NEGATIVE (NEGATIVE); TRICYCLIC ANTIDEPRESSANT,URINE NEGATIVE (NEGATIVE)
--- NOTE | 2018-09-04 20:55 | CT Report ---
Reason: Abdominal pain Procedure Date: 09/04/2018 Accession Number: [id number] / [id number] Procedure: CT - Abdomen W/ CPT Code: FULL RESULT: EXAM: CT ABDOMEN EXAM DATE: 09/04/2018 07:45 PM. CLINICAL HISTORY: Abdominal pain. Nausea. COMPARISON: Abdomen/pelvis with contrast 05/30/2018 2:32 PM. TECHNIQUE: Routine helical CT imaging was performed through the abdomen. IV contrast: 90 mL [id number] Enteric contrast: No. Reconstruction: Coronal and sagittal. In accordance with CT protocol optimization, one or more of the following dose reduction techniques were utilized for this exam: automated exposure control, adjustment of mA and/or KV based on patient size, or use of iterative reconstructive technique. FINDINGS: Lung Bases: Lung bases are clear. Leads are seen in the right atrium and right ventricle. Small hiatal hernia. Liver: Mild fatty liver. Patent portal vein. Gallbladder/Bile Ducts: Status post cholecystectomy. Spleen: Normal. Pancreas: Normal. Adrenal Glands: Normal. Kidneys: Normal. No masses or hydronephrosis. Peritoneal Cavity/Bowel: Stomach is mildly distended. No bowel obstruction or bowel wall thickening. Small to moderate volume of stool in the colon. No enlarged retroperitoneal or mesenteric lymph nodes. No diverticulitis. Vasculature: Vascular calcifications. No aneurysm. Bones: No acute osseous abnormalities. Other: None. IMPRESSION: 1. Etiology for patient's abdominal pain is not identified. 2. Small to moderate volume of stool in the colon. No bowel obstruction. 3. No abdominal adenopathy. 4. Status post cholecystectomy. 5. Mild fatty liver. RADIA
[2018-09-04] MEDS ORDERED: INSULIN GLARGINE 300 UNIT/3 ML PEN SUBQ SCH (21:00)
[2018-09-04] MEDS ORDERED: METOPROLOL SUCCINATE 25 MG TABLET PO SCH (21:00)
[2018-09-04] MEDS: INSULIN ASPART 300 UNIT/3 ML PEN SUBQ SCH (21:08)
[2018-09-04] MEDS: GABAPENTIN 100 MG CAPSULE PO SCH (21:08)
[2018-09-04] MEDS: ENOXAPARIN 40 MG/0.4 ML SYRINGE SUBQ SCH (23:41)
[2018-09-05] MEDS: HYDROmorphone 0.5 MG/0.5 ML SYRINGE IVP PRN ×5 (00:47→10:10)
[2018-09-05] MEDS: GABAPENTIN 100 MG CAPSULE PO SCH ×3 (05:50→21:01)
[2018-09-05 05:57] LABS: ALBUMIN 2.5 g/dL (3.2-5.5); CALCIUM 7.2 mg/dL (8.5-10.3); CREATININE 0.7 mg/dL (0.4-1.0); PHOSPHORUS 2.1 mg/dL (2.5-4.6)
[2018-09-05] MEDS ORDERED: INSULIN ASPART 300 UNIT/3 ML PEN SUBQ ONE (06:54)
[2018-09-05] MEDS: LEVOTHYROXINE 125 MCG TABLET PO SCH (06:56)
[2018-09-05] MEDS ORDERED: NS W/20 MEQ KCL 1,000 ML IV SCH (07:00)
[2018-09-05] MEDS: INSULIN GLARGINE 300 UNIT/3 ML PEN SUBQ SCH ×2 (07:46→20:39)
[2018-09-05] MEDS: INSULIN ASPART 300 UNIT/3 ML PEN SUBQ SCH ×4 (07:48→20:39)
[2018-09-05] MEDS: NEUTRA-PHOS 250 MG TABLET PO SCH ×4 (07:54→16:50)
[2018-09-05] MEDS: ASPIRIN EC 81 MG TABLET PO SCH (09:05)
[2018-09-05] MEDS: VENLAFAXINE ER 75 MG CAPSULE PO SCH (09:05)
[2018-09-05] MEDS ORDERED: POLYETHYLENE GLYCOL 3350 17 GM PACKET PO PRN (10:41)
[2018-09-05] MEDS ORDERED: oxyCODONE 5 MG TABLET PO PRN (10:44)
[2018-09-05] MEDS: NS W/20 MEQ KCL 1,000 ML IV SCH ×3 (10:47→20:36)
[2018-09-05 11:03] LABS: KETONES, SERUM (ACETEST) SMALL (NEGATIVE)
[2018-09-05 11:11] LABS: ALBUMIN 2.7 g/dL (3.2-5.5); BUN - BLOOD UREA NITROGEN 12 mg/dL (6-20); CALCIUM 7.7 mg/dL (8.5-10.3); CARBON DIOXIDE - CO2 23 mmol/L (21-32); CHLORIDE 100 mmol/L (101-111); CREATININE 0.6 mg/dL (0.4-1.0); GFR - MDRD 111 (>89); GLUCOSE 166 mg/dL (70-100); PHOSPHORUS 1.2 mg/dL (2.5-4.6); SODIUM 135 mmol/L (135-145)
[2018-09-05] MEDS: HYDROcod/ACETAM 10 MG/325 MG TABLET PO PRN ×3 (12:21→20:32)
[2018-09-05] MEDS: DOCUSATE SODIUM 250 MG CAPSULE PO SCH (12:29)
[2018-09-05] MEDS: DICYCLOMINE 10 MG CAPSULE PO SCH ×3 (12:29→20:32)
--- NOTE | 2018-09-05 12:32 | PROVIDER PROGRESS NOTE ---
Subjective - Prog Note Date Prog Note Date: 09/05/18 Prog Note Time: 12:30 - Subjective Pt reports feeling: Improved (Paatients sugars are labile, improved pain to abd/LACW and shoulder) Current Medications - Current Medications Current Medications: Active Medications Hydrocodone Bitart/Acetaminophen ([place] 10 Mg/325 Mg) 1 tab PO Q4HR PRN PRN Reason: PAIN Last Admin: 09/05/18 12:21 Dose: 1 tab Amitriptyline HCl (Elavil) 50 mg PO QPM [facility] Last Admin: 09/04/18 20:03 Dose: 50 mg Aspirin (Ecotrin) 81 mg PO DAILY [facility] Last Admin: 09/05/18 09:05 Dose: 81 mg Atorvastatin Calcium (Lipitor) 80 mg PO QPM [facility] Last Admin: 09/04/18 20:03 Dose: 80 mg Cyclobenzaprine HCl (Flexeril) 10 mg PO TID PRN PRN Reason: Chest Pain Dicyclomine HCl (Bentyl) 10 mg PO QID [facility] Docusate Sodium (Colace 250mg Capsule) 250 mg PO DAILY [facility] Enoxaparin Sodium (Lovenox) 40 mg SUBQ DAILY [facility] Last Admin: 09/04/18 23:41 Dose: 40 mg Gabapentin (Neurontin) 200 mg PO TID [facility] Hydralazine HCl (Apresoline Inj) 20 mg IVP Q4HR PRN PRN Reason: SBP>170 Insulin Human Regular 100 unit (/ Sodium Chloride) 100 mls @ 5 mls/hr IV .Q20H [facility]; Protocol Last Titration: 09/04/18 18:35 Dose: 0 unit/hr, 0 mls/hr Potassium Chloride/Sodium Chloride (Normal Saline 0.9% W/20 Meq Kcl) 1,000 mls @ 200 mls/hr IV .Q5H [facility] Last Admin: 09/05/18 10:47 Dose: 200 mls/hr Insulin Aspart (Novolog) 3 - 11 unit SUBQ 0800,1200,1700,2100 [facility]; Protocol Last Admin: 09/05/18 07:48 Dose: Not Given Insulin Glargine (Lantus Solostar) 30 unit SUBQ BID [facility] Last Admin: 09/05/18 07:46 Dose: 30 unit Levothyroxine Sodium (Synthroid) 250 mcg PO QDAC [facility] Last Admin: 09/05/18 06:56 Dose: 250 mcg Lorazepam (Ativan) 1 mg PO QPM PRN PRN Reason: SLEEP/ANXIETY Last Admin: 09/04/18 22:15 Dose: 1 mg Metoprolol Succinate (Toprol Xl) 25 mg PO BID [facility] Polyethylene Glycol (Miralax) 17 gm PO DAILY PRN PRN Reason: Bowel Protocol Sodium Chloride (Normal Saline Flush 0.9%) 10 ml IVP PRN PRN PRN Reason: NEEDED PER PROVIDER ORDERS Venlafaxine HCl (Effexor Er) 150 mg PO DAILY [facility] Last Admin: 09/05/18 09:05 Dose: 150 mg Lorazepam [Ativan] 1 mg PO QPM PRN 08/29/13 Insulin Glargine,Hum.rec.anlog [Lantus Solostar] 28 units SUBQ DAILY 09/05/13 Amitriptyline [Elavil] 50 mg PO QPM 07/03/14 Spironolactone 25 mg PO DAILY 04/11/17 Aspirin [Aspirin EC] 81 mg PO DAILY 10/08/17 Furosemide 80 mg PO DAILY 10/08/17 Levothyroxine Sodium 250 mcg PO QDAC 10/08/17 Metoprolol Succinate 25 mg PO QPM 10/08/17 Atorvastatin Calcium [Lipitor] 80 mg PO DAILY 01/20/18 Lisinopril [Zestril] 10 mg PO DAILY 01/20/18 Venlafaxine HCl [Venlafaxine HCl ER] 150 mg PO DAILY 01/20/18 Insulin Lispro [Humalog] 2 - 15 unit SUBQ ACHS 04/02/18 Gabapentin 100 mg PO TID 07/22/18 Insulin Glargine [Lantus Solostar] 32 unit SQ QPM 07/22/18 Cyclobenzaprine [Flexeril] 10 mg PO QPM PRN 09/04/18 Famotidine 20 mg PO BID 09/04/18 Objective - Vital Signs/Intake & Output Reviewed Vital Signs: Yes Vital Signs: Vital Signs x48h Temp Pulse Resp BP Pulse Ox 09/05/18 10:00 36.8 C 113 H 18 152/80 H 99 Intake & Output: Intake & Output 09/02/18 09/03/18 09/04/18 09/05/18 23:59 23:59 23:59 23:59 Intake Total 4081.971 8437.667 Output Total 600 900 Balance 2395.150 4262.667 - Objective General Appearance: positive: No acute distress, Alert Eyes Bilateral: positive: Normal inspection, PERRL, EOMI, Conjunctivae nml ENT: positive: ENT inspection nml, Pharynx nml, No signs of dehydration Neck: positive: Nml inspection, Thyroid nml, No JVD. negative: Thyromegaly Cardiovascular: positive: Regular rate & rhythm, No murmur, No gallop Peripheral Pulses: 2+ Dorsalis pedis (R), 2+ Dorsalis pedis (L) Abdomen: positive: No organomegaly, Nml bowel sounds, Tenderness (mild epigastric and lower quads). negative: Guarding, Rebound Back: positive: Nml inspection Skin: positive: Color nml, No rash, Warm, Dry Neurologic/Psychiatric: positive: Oriented x3, CN's nml (2-12) - Lab Results Fish Bones: 09/04/18 13:30 09/05/18 10:50 Other Labs: Lab Results x24hrs 09/05/18 09/05/18 09/05/18 Range/Units 12:08 10:50 10:41 WBC (4.8-10.8) x10^3/uL RBC (4.20-5.40) 10^6/uL Hgb (12.0-16.0) g/dL Hct (37.0-47.0) % MCV (81.0-99.0) fL MCH (27.0-31.0) pg MCHC (32.0-36.0) g/dL RDW (12.0-15.0) % Plt Count (130-450) 10^3/uL MPV (7.9-10.8) fL Neut # (Auto) (1.5-6.6) 10^3/uL Lymph # (Auto) (1.5-3.5) 10^3/uL [place] # (Auto) (0.0-1.0) 10^3/uL Eos # (Auto) (0.0-0.7) 10^3/uL Baso # (Auto) (0.0-0.1) 10^3/uL Absolute Nucleated RBC x10^3/uL Nucleated RBC % /100WBC VBG pH (7.31-7.41) VBG pCO2 (41-51) mmHg VBG pO2 (25-47) mmHg VBG HCO3 (23-28) mmol/L VBG Total CO2 (24-29) mmol/L VBG O2 Saturation (60-80) % VBG Base Excess (-2 - +2) mmol/L Sodium 135 (135-145) mmol/L Potassium 3.5 (3.5-5.0) mmol/L Chloride 100 L (101-111) mmol/L Carbon Dioxide 23 (21-32) mmol/L Anion Gap 12.0 (6-13) BUN 12 (6-20) mg/dL Creatinine 0.6 (0.4-1.0) mg/dL Estimated GFR (MDRD) 111 (>89) Glucose 166 H (70-100) mg/dL POC Whole Bld Glucose 126 H 181 H (70 - 100) mg/dL Glycated Hemoglobin (4.6-6.2) % Estim Average Glucose (70-100) Uric Acid (2.6-7.2) mg/dL Calcium 7.7 L (8.5-10.3) mg/dL Phosphorus 1.2 L (2.5-4.6) mg/dL Magnesium (1.7-2.8) mg/dL Total Bilirubin (0.2-1.0) mg/dL AST (10-42) IU/L ALT (10-60) IU/L Alkaline Phosphatase (42-121) IU/L Troponin I (<0.49) ng/mL B-Natriuretic Peptide (5-100) pg/mL Total Protein (6.7-8.2) g/dL Albumin 2.7 L (3.2-5.5) g/dL Globulin (2.1-4.2) g/dL Albumin/Globulin Ratio (1.0-2.2) Lipase (22-51) U/L TSH (0.34-5.60) uIU/mL Urine Color Urine Clarity (CLEAR) Urine pH (5.0-7.5) PH Ur Specific [place] (1.002-1.030) Urine Protein (NEGATIVE) mg/dL Urine Glucose (UA) (NEGATIVE) mg/dL Urine Ketones (NEGATIVE) mg/dL Urine Occult Blood (NEGATIVE) Urine Nitrite (NEGATIVE) Urine Bilirubin (NEGATIVE) Urine Urobilinogen (NORMAL) E.U./dL Ur Leukocyte Esterase (NEGATIVE) Ur Microscopic Review Urine Culture Comments Urine HCG, Qual Urine Opiates Screen (NEGATIVE) Ur Oxycodone Screen (NEGATIVE) Urine Methadone Screen (NEGATIVE) Ur Propoxyphene Screen (NEGATIVE) Ur Barbiturates Screen (NEGATIVE) Ur Tricyclics Screen (NEGATIVE) Ur Phencyclidine Scrn (NEGATIVE) Ur Amphetamine Screen (NEGATIVE) U Methamphetamines Scrn (NEGATIVE) U Benzodiazepines Scrn (NEGATIVE) Urine Cocaine Screen (NEGATIVE) U Cannabinoids Screen (NEGATIVE) Serum Ketones SMALL H (NEGATIVE) MRSA Surveill Initial (NEGATIVE) 09/05/18 09/05/18 09/05/18 Range/Units 07:40 05:25 05:25 WBC (4.8-10.8) x10^3/uL RBC (4.20-5.40) 10^6/uL Hgb (12.0-16.0) g/dL Hct (37.0-47.0) % MCV (81.0-99.0) fL MCH (27.0-31.0) pg MCHC (32.0-36.0) g/dL RDW (12.0-15.0) % Plt Count (130-450) 10^3/uL MPV (7.9-10.8) fL Neut # (Auto) (1.5-6.6) 10^3/uL Lymph # (Auto) (1.5-3.5) 10^3/uL [place] # (Auto) (0.0-1.0) 10^3/uL Eos # (Auto) (0.0-0.7) 10^3/uL Baso # (Auto) (0.0-0.1) 10^3/uL Absolute Nucleated RBC x10^3/uL Nucleated RBC % /100WBC VBG pH (7.31-7.41) VBG pCO2 (41-51) mmHg VBG pO2 (25-47) mmHg VBG HCO3 (23-28) mmol/L VBG Total CO2 (24-29) mmol/L VBG O2 Saturation (60-80) % VBG Base Excess (-2 - +2) mmol/L Sodium 129 L (135-145) mmol/L Potassium 4.5 (3.5-5.0) mmol/L Chloride 98 L (101-111) mmol/L Carbon Dioxide 17 L (21-32) mmol/L Anion Gap 14.0 H (6-13) BUN 15 (6-20) mg/dL Creatinine 0.7 (0.4-1.0) mg/dL Estimated GFR (MDRD) 93 (>89) Glucose 430 H (70-100) mg/dL POC Whole Bld Glucose 485 H (70 - 100) mg/dL Glycated Hemoglobin (4.6-6.2) % Estim Average Glucose (70-100) Uric Acid (2.6-7.2) mg/dL Calcium 7.2 L (8.5-10.3) mg/dL Phosphorus 2.1 L (2.5-4.6) mg/dL Magnesium 2.0 (1.7-2.8) mg/dL Total Bilirubin (0.2-1.0) mg/dL AST (10-42) IU/L ALT (10-60) IU/L Alkaline Phosphatase (42-121) IU/L Troponin I (<0.49) ng/mL B-Natriuretic Peptide (5-100) pg/mL Total Protein (6.7-8.2) g/dL Albumin 2.5 L (3.2-5.5) g/dL Globulin (2.1-4.2) g/dL Albumin/Globulin Ratio (1.0-2.2) Lipase (22-51) U/L TSH (0.34-5.60) uIU/mL Urine Color Urine Clarity (CLEAR) Urine pH (5.0-7.5) PH Ur Specific [place] (1.002-1.030) Urine Protein (NEGATIVE) mg/dL Urine Glucose (UA) (NEGATIVE) mg/dL Urine Ketones (NEGATIVE) mg/dL Urine Occult Blood (NEGATIVE) Urine Nitrite (NEGATIVE) Urine Bilirubin (NEGATIVE) Urine Urobilinogen (NORMAL) E.U./dL Ur Leukocyte Esterase (NEGATIVE) Ur Microscopic Review Urine Culture Comments Urine HCG, Qual Urine Opiates Screen (NEGATIVE) Ur Oxycodone Screen (NEGATIVE) Urine Methadone Screen (NEGATIVE) Ur Propoxyphene Screen (NEGATIVE) Ur Barbiturates Screen (NEGATIVE) Ur Tricyclics Screen (NEGATIVE) Ur Phencyclidine Scrn (NEGATIVE) Ur Amphetamine Screen (NEGATIVE) U Methamphetamines Scrn (NEGATIVE) U Benzodiazepines Scrn (NEGATIVE) Urine Cocaine Screen (NEGATIVE) U Cannabinoids Screen (NEGATIVE) Serum Ketones (NEGATIVE) MRSA Surveill Initial (NEGATIVE) 09/04/18 09/04/18 09/04/18 Range/Units 21:07 19:36 18:37 WBC (4.8-10.8) x10^3/uL RBC (4.20-5.40) 10^6/uL Hgb (12.0-16.0) g/dL Hct (37.0-47.0) % MCV (81.0-99.0) fL MCH (27.0-31.0) pg MCHC (32.0-36.0) g/dL RDW (12.0-15.0) % Plt Count (130-450) 10^3/uL MPV (7.9-10.8) fL Neut # (Auto) (1.5-6.6) 10^3/uL Lymph # (Auto) (1.5-3.5) 10^3/uL [place] # (Auto) (0.0-1.0) 10^3/uL Eos # (Auto) (0.0-0.7) 10^3/uL Baso # (Auto) (0.0-0.1) 10^3/uL Absolute Nucleated RBC x10^3/uL Nucleated RBC % /100WBC VBG pH (7.31-7.41) VBG pCO2 (41-51) mmHg VBG pO2 (25-47) mmHg VBG HCO3 (23-28) mmol/L VBG Total CO2 (24-29) mmol/L VBG O2 Saturation (60-80) % VBG Base Excess (-2 - +2) mmol/L Sodium (135-145) mmol/L Potassium (3.5-5.0) mmol/L Chloride (101-111) mmol/L Carbon Dioxide (21-32) mmol/L Anion Gap (6-13) BUN (6-20) mg/dL Creatinine (0.4-1.0) mg/dL Estimated GFR (MDRD) (>89) Glucose (70-100) mg/dL POC Whole Bld Glucose 316 H 198 H 72 (70 - 100) mg/dL Glycated Hemoglobin (4.6-6.2) % Estim Average Glucose (70-100) Uric Acid (2.6-7.2) mg/dL Calcium (8.5-10.3) mg/dL Phosphorus (2.5-4.6) mg/dL Magnesium (1.7-2.8) mg/dL Total Bilirubin (0.2-1.0) mg/dL AST (10-42) IU/L ALT (10-60) IU/L Alkaline Phosphatase (42-121) IU/L Troponin I (<0.49) ng/mL B-Natriuretic Peptide (5-100) pg/mL Total Protein (6.7-8.2) g/dL Albumin (3.2-5.5) g/dL Globulin (2.1-4.2) g/dL Albumin/Globulin Ratio (1.0-2.2) Lipase (22-51) U/L TSH (0.34-5.60) uIU/mL Urine Color Urine Clarity (CLEAR) Urine pH (5.0-7.5) PH Ur Specific [place] (1.002-1.030) Urine Protein (NEGATIVE) mg/dL Urine Glucose (UA) (NEGATIVE) mg/dL Urine Ketones (NEGATIVE) mg/dL Urine Occult Blood (NEGATIVE) Urine Nitrite (NEGATIVE) Urine Bilirubin (NEGATIVE) Urine Urobilinogen (NORMAL) E.U./dL Ur Leukocyte Esterase (NEGATIVE) Ur Microscopic Review Urine Culture Comments Urine HCG, Qual Urine Opiates Screen (NEGATIVE) Ur Oxycodone Screen (NEGATIVE) Urine Methadone Screen (NEGATIVE) Ur Propoxyphene Screen (NEGATIVE) Ur Barbiturates Screen (NEGATIVE) Ur Tricyclics Screen (NEGATIVE) Ur Phencyclidine Scrn (NEGATIVE) Ur Amphetamine Screen (NEGATIVE) U Methamphetamines Scrn (NEGATIVE) U Benzodiazepines Scrn (NEGATIVE) Urine Cocaine Screen (NEGATIVE) U Cannabinoids Screen (NEGATIVE) Serum Ketones (NEGATIVE) MRSA Surveill Initial (NEGATIVE) 09/04/18 09/04/18 09/04/18 Range/Units 18:33 17:30 17:30 WBC (4.8-10.8) x10^3/uL RBC (4.20-5.40) 10^6/uL Hgb (12.0-16.0) g/dL Hct (37.0-47.0) % MCV (81.0-99.0) fL MCH (27.0-31.0) pg MCHC (32.0-36.0) g/dL RDW (12.0-15.0) % Plt Count (130-450) 10^3/uL MPV (7.9-10.8) fL Neut # (Auto) (1.5-6.6) 10^3/uL Lymph # (Auto) (1.5-3.5) 10^3/uL [place] # (Auto) (0.0-1.0) 10^3/uL Eos # (Auto) (0.0-0.7) 10^3/uL Baso # (Auto) (0.0-0.1) 10^3/uL Absolute Nucleated RBC x10^3/uL Nucleated RBC % /100WBC VBG pH (7.31-7.41) VBG pCO2 (41-51) mmHg VBG pO2 (25-47) mmHg VBG HCO3 (23-28) mmol/L VBG Total CO2 (24-29) mmol/L VBG O2 Saturation (60-80) % VBG Base Excess (-2 - +2) mmol/L Sodium (135-145) mmol/L Potassium (3.5-5.0) mmol/L Chloride (101-111) mmol/L Carbon Dioxide (21-32) mmol/L Anion Gap (6-13) BUN (6-20) mg/dL Creatinine (0.4-1.0) mg/dL Estimated GFR (MDRD) (>89) Glucose (70-100) mg/dL POC Whole Bld Glucose (70 - 100) mg/dL Glycated Hemoglobin (4.6-6.2) % Estim Average Glucose (70-100) Uric Acid 6.6 (2.6-7.2) mg/dL Calcium (8.5-10.3) mg/dL Phosphorus (2.5-4.6) mg/dL Magnesium (1.7-2.8) mg/dL Total Bilirubin (0.2-1.0) mg/dL AST (10-42) IU/L ALT (10-60) IU/L Alkaline Phosphatase (42-121) IU/L Troponin I (<0.49) ng/mL B-Natriuretic Peptide 22 (5-100) pg/mL Total Protein (6.7-8.2) g/dL Albumin (3.2-5.5) g/dL Globulin (2.1-4.2) g/dL Albumin/Globulin Ratio (1.0-2.2) Lipase (22-51) U/L TSH (0.34-5.60) uIU/mL Urine Color Urine Clarity (CLEAR) Urine pH (5.0-7.5) PH Ur Specific [place] (1.002-1.030) Urine Protein (NEGATIVE) mg/dL Urine Glucose (UA) (NEGATIVE) mg/dL Urine Ketones (NEGATIVE) mg/dL Urine Occult Blood (NEGATIVE) Urine Nitrite (NEGATIVE) Urine Bilirubin (NEGATIVE) Urine Urobilinogen (NORMAL) E.U./dL Ur Leukocyte Esterase (NEGATIVE) Ur Microscopic Review Urine Culture Comments Urine HCG, Qual Urine Opiates Screen (NEGATIVE) Ur Oxycodone Screen (NEGATIVE) Urine Methadone Screen (NEGATIVE) Ur Propoxyphene Screen (NEGATIVE) Ur Barbiturates Screen (NEGATIVE) Ur Tricyclics Screen (NEGATIVE) Ur Phencyclidine Scrn (NEGATIVE) Ur Amphetamine Screen (NEGATIVE) U Methamphetamines Scrn (NEGATIVE) U Benzodiazepines Scrn (NEGATIVE) Urine Cocaine Screen (NEGATIVE) U Cannabinoids Screen (NEGATIVE) Serum Ketones (NEGATIVE) MRSA Surveill Initial NEGATIVE (NEGATIVE) 09/04/18 09/04/18 09/04/18 Range/Units 17:30 17:30 16:33 WBC (4.8-10.8) x10^3/uL RBC (4.20-5.40) 10^6/uL Hgb (12.0-16.0) g/dL Hct (37.0-47.0) % MCV (81.0-99.0) fL MCH (27.0-31.0) pg MCHC (32.0-36.0) g/dL RDW (12.0-15.0) % Plt Count (130-450) 10^3/uL MPV (7.9-10.8) fL Neut # (Auto) (1.5-6.6) 10^3/uL Lymph # (Auto) (1.5-3.5) 10^3/uL [place] # (Auto) (0.0-1.0) 10^3/uL Eos # (Auto) (0.0-0.7) 10^3/uL Baso # (Auto) (0.0-0.1) 10^3/uL Absolute Nucleated RBC x10^3/uL Nucleated RBC % /100WBC VBG pH 7.400 (7.31-7.41) VBG pCO2 35.3 L (41-51) mmHg VBG pO2 86.6 H (25-47) mmHg VBG HCO3 21.4 L (23-28) mmol/L VBG Total CO2 22.5 L (24-29) mmol/L VBG O2 Saturation 96.9 H (60-80) % VBG Base Excess -2.8 L (-2 - +2) mmol/L Sodium 131 L (135-145) mmol/L Potassium 3.9 (3.5-5.0) mmol/L Chloride 101 (101-111) mmol/L Carbon Dioxide 21 (21-32) mmol/L Anion Gap 9.0 (6-13) BUN 12 (6-20) mg/dL Creatinine 0.5 (0.4-1.0) mg/dL Estimated GFR (MDRD) 137 (>89) Glucose 118 H (70-100) mg/dL POC Whole Bld Glucose 173 H (70 - 100) mg/dL Glycated Hemoglobin (4.6-6.2) % Estim Average Glucose (70-100) Uric Acid (2.6-7.2) mg/dL Calcium 7.7 L (8.5-10.3) mg/dL Phosphorus (2.5-4.6) mg/dL Magnesium 1.8 (1.7-2.8) mg/dL Total Bilirubin (0.2-1.0) mg/dL AST (10-42) IU/L ALT (10-60) IU/L Alkaline Phosphatase (42-121) IU/L Troponin I (<0.49) ng/mL B-Natriuretic Peptide (5-100) pg/mL Total Protein (6.7-8.2) g/dL Albumin (3.2-5.5) g/dL Globulin (2.1-4.2) g/dL Albumin/Globulin Ratio (1.0-2.2) Lipase (22-51) U/L TSH (0.34-5.60) uIU/mL Urine Color Urine Clarity (CLEAR) Urine pH (5.0-7.5) PH Ur Specific [place] (1.002-1.030) Urine Protein (NEGATIVE) mg/dL Urine Glucose (UA) (NEGATIVE) mg/dL Urine Ketones (NEGATIVE) mg/dL Urine Occult Blood (NEGATIVE) Urine Nitrite (NEGATIVE) Urine Bilirubin (NEGATIVE) Urine Urobilinogen (NORMAL) E.U./dL Ur Leukocyte Esterase (NEGATIVE) Ur Microscopic Review Urine Culture Comments Urine HCG, Qual Urine Opiates Screen (NEGATIVE) Ur Oxycodone Screen (NEGATIVE) Urine Methadone Screen (NEGATIVE) Ur Propoxyphene Screen (NEGATIVE) Ur Barbiturates Screen (NEGATIVE) Ur Tricyclics Screen (NEGATIVE) Ur Phencyclidine Scrn (NEGATIVE) Ur Amphetamine Screen (NEGATIVE) U Methamphetamines Scrn (NEGATIVE) U Benzodiazepines Scrn (NEGATIVE) Urine Cocaine Screen (NEGATIVE) U Cannabinoids Screen (NEGATIVE) Serum Ketones (NEGATIVE) MRSA Surveill Initial (NEGATIVE) 09/04/18 09/04/18 09/04/18 Range/Units 15:20 15:20 14:18 WBC (4.8-10.8) x10^3/uL RBC (4.20-5.40) 10^6/uL Hgb (12.0-16.0) g/dL Hct (37.0-47.0) % MCV (81.0-99.0) fL MCH (27.0-31.0) pg MCHC (32.0-36.0) g/dL RDW (12.0-15.0) % Plt Count (130-450) 10^3/uL MPV (7.9-10.8) fL Neut # (Auto) (1.5-6.6) 10^3/uL Lymph # (Auto) (1.5-3.5) 10^3/uL [place] # (Auto) (0.0-1.0) 10^3/uL Eos # (Auto) (0.0-0.7) 10^3/uL Baso # (Auto) (0.0-0.1) 10^3/uL Absolute Nucleated RBC x10^3/uL Nucleated RBC % /100WBC VBG pH (7.31-7.41) VBG pCO2 (41-51) mmHg VBG pO2 (25-47) mmHg VBG HCO3 (23-28) mmol/L VBG Total CO2 (24-29) mmol/L VBG O2 Saturation (60-80) % VBG Base Excess (-2 - +2) mmol/L Sodium 128 L (135-145) mmol/L Potassium 4.1 (3.5-5.0) mmol/L Chloride 96 L (101-111) mmol/L Carbon Dioxide 14 L (21-32) mmol/L Anion Gap 18.0 H (6-13) BUN 15 (6-20) mg/dL Creatinine 0.8 (0.4-1.0) mg/dL Estimated GFR (MDRD) 79 L (>89) Glucose 336 H (70-100) mg/dL POC Whole Bld Glucose (70 - 100) mg/dL Glycated Hemoglobin 10.4 H (4.6-6.2) % Estim Average Glucose 252 H (70-100) Uric Acid (2.6-7.2) mg/dL Calcium 8.2 L (8.5-10.3) mg/dL Phosphorus (2.5-4.6) mg/dL Magnesium 2.0 (1.7-2.8) mg/dL Total Bilirubin (0.2-1.0) mg/dL AST (10-42) IU/L ALT (10-60) IU/L Alkaline Phosphatase (42-121) IU/L Troponin I (<0.49) ng/mL B-Natriuretic Peptide (5-100) pg/mL Total Protein (6.7-8.2) g/dL Albumin (3.2-5.5) g/dL Globulin (2.1-4.2) g/dL Albumin/Globulin Ratio (1.0-2.2) Lipase (22-51) U/L TSH 4.84 (0.34-5.60) uIU/mL Urine Color Urine Clarity (CLEAR) Urine pH (5.0-7.5) PH Ur Specific [place] (1.002-1.030) Urine Protein (NEGATIVE) mg/dL Urine Glucose (UA) (NEGATIVE) mg/dL Urine Ketones (NEGATIVE) mg/dL Urine Occult Blood (NEGATIVE) Urine Nitrite (NEGATIVE) Urine Bilirubin (NEGATIVE) Urine Urobilinogen (NORMAL) E.U./dL Ur Leukocyte Esterase (NEGATIVE) Ur Microscopic Review Urine Culture Comments Urine HCG, Qual Urine Opiates Screen (NEGATIVE) Ur Oxycodone Screen (NEGATIVE) Urine Methadone Screen (NEGATIVE) Ur Propoxyphene Screen (NEGATIVE) Ur Barbiturates Screen (NEGATIVE) Ur Tricyclics Screen (NEGATIVE) Ur Phencyclidine Scrn (NEGATIVE) Ur Amphetamine Screen (NEGATIVE) U Methamphetamines Scrn (NEGATIVE) U Benzodiazepines Scrn (NEGATIVE) Urine Cocaine Screen (NEGATIVE) U Cannabinoids Screen (NEGATIVE) Serum Ketones (NEGATIVE) MRSA Surveill Initial (NEGATIVE) 09/04/18 09/04/18 09/04/18 Range/Units 14:18 13:30 13:30 WBC (4.8-10.8) x10^3/uL RBC (4.20-5.40) 10^6/uL Hgb (12.0-16.0) g/dL Hct (37.0-47.0) % MCV (81.0-99.0) fL MCH (27.0-31.0) pg MCHC (32.0-36.0) g/dL RDW (12.0-15.0) % Plt Count (130-450) 10^3/uL MPV (7.9-10.8) fL Neut # (Auto) (1.5-6.6) 10^3/uL Lymph # (Auto) (1.5-3.5) 10^3/uL Fleming # (Auto) (0.0-1.0) 10^3/uL Eos # (Auto) (0.0-0.7) 10^3/uL Baso # (Auto) (0.0-0.1) 10^3/uL Absolute Nucleated RBC x10^3/uL Nucleated RBC % /100WBC VBG pH 7.308 L (7.31-7.41) VBG pCO2 27.9 L (41-51) mmHg VBG pO2 49.4 H (25-47) mmHg VBG HCO3 13.7 L (23-28) mmol/L VBG Total CO2 14.5 L (24-29) mmol/L VBG O2 Saturation 85.4 H (60-80) % VBG Base Excess -10.9 L (-2 - +2) mmol/L Sodium (135-145) mmol/L Potassium (3.5-5.0) mmol/L Chloride (101-111) mmol/L Carbon Dioxide (21-32) mmol/L Anion Gap (6-13) BUN (6-20) mg/dL Creatinine (0.4-1.0) mg/dL Estimated GFR (MDRD) (>89) Glucose (70-100) mg/dL POC Whole Bld Glucose (70 - 100) mg/dL Glycated Hemoglobin (4.6-6.2) % Estim Average Glucose (70-100) Uric Acid (2.6-7.2) mg/dL Calcium (8.5-10.3) mg/dL Phosphorus (2.5-4.6) mg/dL Magnesium (1.7-2.8) mg/dL Total Bilirubin (0.2-1.0) mg/dL AST (10-42) IU/L ALT (10-60) IU/L Alkaline Phosphatase (42-121) IU/L Troponin I (<0.49) ng/mL B-Natriuretic Peptide (5-100) pg/mL Total Protein (6.7-8.2) g/dL Albumin (3.2-5.5) g/dL Globulin (2.1-4.2) g/dL Albumin/Globulin Ratio (1.0-2.2) Lipase (22-51) U/L TSH (0.34-5.60) uIU/mL Urine Color Urine Clarity (CLEAR) Urine pH (5.0-7.5) PH Ur Specific [place] 1.025 (1.002-1.030) Urine Protein (NEGATIVE) mg/dL Urine Glucose (UA) (NEGATIVE) mg/dL Urine Ketones (NEGATIVE) mg/dL Urine Occult Blood (NEGATIVE) Urine Nitrite (NEGATIVE) Urine Bilirubin (NEGATIVE) Urine Urobilinogen (NORMAL) E.U./dL Ur Leukocyte Esterase (NEGATIVE) Ur Microscopic Review Urine Culture Comments Urine HCG, Qual NEGATIVE Urine Opiates Screen POSITIVE H (NEGATIVE) Ur Oxycodone Screen NEGATIVE (NEGATIVE) Urine Methadone Screen NEGATIVE (NEGATIVE) Ur Propoxyphene Screen NEGATIVE (NEGATIVE) Ur Barbiturates Screen NEGATIVE (NEGATIVE) Ur Tricyclics Screen NEGATIVE (NEGATIVE) Ur Phencyclidine Scrn NEGATIVE (NEGATIVE) Ur Amphetamine Screen NEGATIVE (NEGATIVE) U Methamphetamines Scrn NEGATIVE (NEGATIVE) U Benzodiazepines Scrn NEGATIVE (NEGATIVE) Urine Cocaine Screen NEGATIVE (NEGATIVE) U Cannabinoids Screen NEGATIVE (NEGATIVE) Serum Ketones (NEGATIVE) MRSA Surveill Initial (NEGATIVE) 09/04/18 09/04/18 09/04/18 Range/Units 13:30 13:30 13:30 WBC (4.8-10.8) x10^3/uL RBC (4.20-5.40) 10^6/uL Hgb (12.0-16.0) g/dL Hct (37.0-47.0) % MCV (81.0-99.0) fL MCH (27.0-31.0) pg MCHC (32.0-36.0) g/dL RDW (12.0-15.0) % Plt Count (130-450) 10^3/uL MPV (7.9-10.8) fL Neut # (Auto) (1.5-6.6) 10^3/uL Lymph # (Auto) (1.5-3.5) 10^3/uL [place] # (Auto) (0.0-1.0) 10^3/uL Eos # (Auto) (0.0-0.7) 10^3/uL Baso # (Auto) (0.0-0.1) 10^3/uL Absolute Nucleated RBC x10^3/uL Nucleated RBC % /100WBC VBG pH (7.31-7.41) VBG pCO2 (41-51) mmHg VBG pO2 (25-47) mmHg VBG HCO3 (23-28) mmol/L VBG Total CO2 (24-29) mmol/L VBG O2 Saturation (60-80) % VBG Base Excess (-2 - +2) mmol/L Sodium 127 L (135-145) mmol/L Potassium 3.8 (3.5-5.0) mmol/L Chloride 90 L (101-111) mmol/L Carbon Dioxide 13 L (21-32) mmol/L Anion Gap 24.0 H (6-13) BUN 18 (6-20) mg/dL Creatinine 1.0 (0.4-1.0) mg/dL Estimated GFR (MDRD) 61 L (>89) Glucose 483 H (70-100) mg/dL POC Whole Bld Glucose (70 - 100) mg/dL Glycated Hemoglobin (4.6-6.2) % Estim Average Glucose (70-100) Uric Acid (2.6-7.2) mg/dL Calcium 8.7 (8.5-10.3) mg/dL Phosphorus (2.5-4.6) mg/dL Magnesium (1.7-2.8) mg/dL Total Bilirubin 2.0 H (0.2-1.0) mg/dL AST 19 (10-42) IU/L ALT 18 (10-60) IU/L Alkaline Phosphatase 167 H (42-121) IU/L Troponin I < 0.04 (<0.49) ng/mL B-Natriuretic Peptide (5-100) pg/mL Total Protein 9.0 H (6.7-8.2) g/dL Albumin 3.6 (3.2-5.5) g/dL Globulin 5.4 H (2.1-4.2) g/dL Albumin/Globulin Ratio 0.7 L (1.0-2.2) Lipase 22 (22-51) U/L TSH (0.34-5.60) uIU/mL Urine Color LT. YELLOW Urine Clarity CLEAR (CLEAR) Urine pH 5.0 (5.0-7.5) PH Ur Specific [place] 1.020 (1.002-1.030) Urine Protein TRACE (NEGATIVE) mg/dL Urine Glucose (UA) 500 H (NEGATIVE) mg/dL Urine Ketones >=80 H (NEGATIVE) mg/dL Urine Occult Blood TRACE-LYSE (NEGATIVE) Urine Nitrite NEGATIVE (NEGATIVE) Urine Bilirubin NEGATIVE (NEGATIVE) Urine Urobilinogen 0.2 (NORMAL) (NORMAL) E.U./dL Ur Leukocyte Esterase NEGATIVE (NEGATIVE) Ur Microscopic Review NOT INDICATED Urine Culture Comments NOT INDICATED Urine HCG, Qual Urine Opiates Screen (NEGATIVE) Ur Oxycodone Screen (NEGATIVE) Urine Methadone Screen (NEGATIVE) Ur Propoxyphene Screen (NEGATIVE) Ur Barbiturates Screen (NEGATIVE) Ur Tricyclics Screen (NEGATIVE) Ur Phencyclidine Scrn (NEGATIVE) Ur Amphetamine Screen (NEGATIVE) U Methamphetamines Scrn (NEGATIVE) U Benzodiazepines Scrn (NEGATIVE) Urine Cocaine Screen (NEGATIVE) U Cannabinoids Screen (NEGATIVE) Serum Ketones MODERATE H (NEGATIVE) MRSA Surveill Initial (NEGATIVE) 09/04/18 09/04/18 Range/Units 13:30 13:14 WBC 8.1 (4.8-10.8) x10^3/uL RBC 4.49 (4.20-5.40) 10^6/uL Hgb 14.5 (12.0-16.0) g/dL Hct 43.0 (37.0-47.0) % MCV 95.7 (81.0-99.0) fL MCH 32.3 H (27.0-31.0) pg MCHC 33.8 (32.0-36.0) g/dL RDW 13.1 (12.0-15.0) % Plt Count 289 (130-450) 10^3/uL MPV 8.0 (7.9-10.8) fL Neut # (Auto) 7.0 H (1.5-6.6) 10^3/uL Lymph # (Auto) 0.7 L (1.5-3.5) 10^3/uL [place] # (Auto) 0.3 (0.0-1.0) 10^3/uL Eos # (Auto) 0.0 (0.0-0.7) 10^3/uL Baso # (Auto) 0.0 (0.0-0.1) 10^3/uL Absolute Nucleated RBC 0.01 x10^3/uL Nucleated RBC % 0.1 /100WBC VBG pH (7.31-7.41) VBG pCO2 (41-51) mmHg VBG pO2 (25-47) mmHg VBG HCO3 (23-28) mmol/L VBG Total CO2 (24-29) mmol/L VBG O2 Saturation (60-80) % VBG Base Excess (-2 - +2) mmol/L Sodium (135-145) mmol/L Potassium (3.5-5.0) mmol/L Chloride (101-111) mmol/L Carbon Dioxide (21-32) mmol/L Anion Gap (6-13) BUN (6-20) mg/dL Creatinine (0.4-1.0) mg/dL Estimated GFR (MDRD) (>89) Glucose (70-100) mg/dL POC Whole Bld Glucose 509 H* (70 - 100) mg/dL Glycated Hemoglobin (4.6-6.2) % Estim Average Glucose (70-100) Uric Acid (2.6-7.2) mg/dL Calcium (8.5-10.3) mg/dL Phosphorus (2.5-4.6) mg/dL Magnesium (1.7-2.8) mg/dL Total Bilirubin (0.2-1.0) mg/dL AST (10-42) IU/L ALT (10-60) IU/L Alkaline Phosphatase (42-121) IU/L Troponin I (<0.49) ng/mL B-Natriuretic Peptide (5-100) pg/mL Total Protein (6.7-8.2) g/dL Albumin (3.2-5.5) g/dL Globulin (2.1-4.2) g/dL Albumin/Globulin Ratio (1.0-2.2) Lipase (22-51) U/L TSH (0.34-5.60) uIU/mL Urine Color Urine Clarity (CLEAR) Urine pH (5.0-7.5) PH Ur Specific [place] (1.002-1.030) Urine Protein (NEGATIVE) mg/dL Urine Glucose (UA) (NEGATIVE) mg/dL Urine Ketones (NEGATIVE) mg/dL Urine Occult Blood (NEGATIVE) Urine Nitrite (NEGATIVE) Urine Bilirubin (NEGATIVE) Urine Urobilinogen (NORMAL) E.U./dL Ur Leukocyte Esterase (NEGATIVE) Ur Microscopic Review Urine Culture Comments Urine HCG, Qual Urine Opiates Screen (NEGATIVE) Ur Oxycodone Screen (NEGATIVE) Urine Methadone Screen (NEGATIVE) Ur Propoxyphene Screen (NEGATIVE) Ur Barbiturates Screen (NEGATIVE) Ur Tricyclics Screen (NEGATIVE) Ur Phencyclidine Scrn (NEGATIVE) Ur Amphetamine Screen (NEGATIVE) U Methamphetamines Scrn (NEGATIVE) U Benzodiazepines Scrn (NEGATIVE) Urine Cocaine Screen (NEGATIVE) U Cannabinoids Screen (NEGATIVE) Serum Ketones (NEGATIVE) MRSA Surveill Initial (NEGATIVE) ABX Reporting Has patient been on IV antibiotics over the past 48 hours?: No Assessment/Plan - Problem List (1) DKA (diabetic ketoacidoses) Impression: Resolved but in am she was recurrent DKA as her Glu>400 with co2 that went from 13>17>23 with a closed gap. Given Lispro 30 units along with restarting her lantus at 30 units BID. Insulin gtt off, would continue with IVF's at 200 cc/hr. Will replace electrolytes with IV mag, neutra-phosph. Was admitted with a hx of a pain or stress induced trigger with the use of a weight loss supplement that exacerbated her free water loss and put her in over DKA with high AG. A1C was 10.4, much improved from her prior >13 in past. Pt will need diabetic referral for education and counseling. Qualifiers: Diabetes mellitus type: type 1 Diabetes mellitus complication detail: without coma Qualified Code(s): E10.10 - Type 1 diabetes mellitus with ketoacidosis without coma (2) Abdominal pain Impression: Treat with oral bentyl prn, add miralax/colace prn for constipation. Due to hx of chronic pain and bipolar/PTSD in past would augmentin regimen w/ uptitration of neurontin along with d/c dilaudid and placing on norco. No signs of infection on UA and lacking evidence of stones on CT. Likely fibroid uterus with some GERD-related pain, also constipation. UDS + for opiates and no narcotics on her home med list. Would tx with norco and d/c dilaudid as she has potential for abuse. Unclear of etiology but states that it is intermittent and ongoing for some time with a prior CT abd/pelvis dated 05/30/18 showing a fatty liver, prior cholecystectomy, fibroid uterus unchanged. (3) Chronic chest pain Impression: This seems to be chronic as she has been having this for several months now. 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 remains slightly tachy on tele, but has an ECG showing A-sensed, V-paced at 115 bpm which I believe is pain induced as opposed to her previous recurrence of tachy-moraima syndrome, uptitrate metoprolol as well as neurontin and place on NORCO and d/c IV Dilaudid. This pain regime should be good for her pain to her left posterior shoulder w/o other s/s of angina, dyspnea or jaw claudication. Her trop x 1 was neg, TSH was normal, mag was low ad will be replaced. Check lipids and treat with a statin if indicated. ASA daily and NTG prn. (4) Type 1 diabetes mellitus with hyperglycemia Impression: A1C is 10.4, which correlates to uncontrolled and brittle IDDM, would refer to Diabetic teaching, education and counseling. Patient would like to go back on CBG and not the insulin pump. Titrate her basal lantus to achieve glycemic control on High dose correctional ISS with the addition of lispro if glu>400.
[2018-09-05] MEDS ORDERED: NITROGLYCERIN SL 0.4 MG TABLET SL PRN (12:51)
[2018-09-05] MEDS ORDERED: MAGNESIUM SULFATE 2 GRAM 2 GM/50 ML BAG IV ONE (14:00)
[2018-09-05] MEDS: AMITRIPTYLINE 25 MG TABLET PO SCH (20:32)
[2018-09-05] MEDS: METOPROLOL SUCCINATE 25 MG TABLET PO SCH (20:32)
[2018-09-05] MEDS: ATORVASTATIN 40 MG TABLET PO SCH (20:32)
[2018-09-06] MEDS: HYDROcod/ACETAM 10 MG/325 MG TABLET PO PRN ×4 (01:07→12:39)
[2018-09-06] MEDS: NS W/20 MEQ KCL 1,000 ML IV SCH ×3 (01:14→11:14)
[2018-09-06] MEDS: LEVOTHYROXINE 125 MCG TABLET PO SCH (06:07)
[2018-09-06] MEDS: GABAPENTIN 100 MG CAPSULE PO SCH ×2 (06:07→13:16)
[2018-09-06] MEDS ORDERED: LORazepam 1 MG TABLET PO PRN (07:16)
[2018-09-06 08:26] VITALS: BP 151/84
[2018-09-06] MEDS: ASPIRIN EC 81 MG TABLET PO SCH (08:35)
[2018-09-06] MEDS: VENLAFAXINE ER 75 MG CAPSULE PO SCH (08:35)
[2018-09-06] MEDS: METOPROLOL SUCCINATE 25 MG TABLET PO SCH (08:35)
[2018-09-06] MEDS: NEUTRA-PHOS 250 MG TABLET PO SCH ×2 (08:35→11:14)
[2018-09-06] MEDS: DOCUSATE SODIUM 250 MG CAPSULE PO SCH (08:35)
[2018-09-06] MEDS: ENOXAPARIN 40 MG/0.4 ML SYRINGE SUBQ SCH (08:35)
[2018-09-06] MEDS: INSULIN GLARGINE 300 UNIT/3 ML PEN SUBQ SCH (08:36)
[2018-09-06] MEDS: DICYCLOMINE 10 MG CAPSULE PO SCH ×2 (08:37→13:16)
[2018-09-06] MEDS: INSULIN ASPART 300 UNIT/3 ML PEN SUBQ SCH ×2 (08:38→11:15)
[2018-09-06 09:03] LABS: BASOPHILS % (AUTO) 0.8 %; EOSINOPHILS # (AUTO) 0.1 10^3/uL (0.0-0.7); EOSINOPHILS % (AUTO) 2.4 %; HGB - HEMOGLOBIN 12.7 g/dL (12.0-16.0); LYMPHOCYTES # (AUTO) 1.1 10^3/uL (1.5-3.5); LYMPHOCYTES % (AUTO) 21.6 %; MEAN CORPUSCULAR HGB CONC 33.7 g/dL (32.0-36.0); MEAN CORPUSCULAR VOLUME 94.8 fL (81.0-99.0); MEAN PLATELET VOLUME 7.4 fL (7.9-10.8); MONOCYTES # (AUTO) 0.4 10^3/uL (0.0-1.0); MONOCYTES % (AUTO) 8.7 %; NEUTROPHILS # (AUTO) 3.3 10^3/uL (1.5-6.6); NEUTROPHILS % (AUTO) 66.5 %; PLT - PLATELET COUNT 253 10^3/uL (130-450); RED BLOOD COUNT 3.96 10^6/uL (4.20-5.40); RED CELL DISTRIBUTION WIDTH 13.5 % (12.0-15.0); WHITE BLOOD COUNT 4.9 x10^3/uL (4.8-10.8)
[2018-09-06 09:10] LABS: ALBUMIN 2.6 g/dL (3.2-5.5); CALCIUM 6.8 mg/dL (8.5-10.3); CREATININE 0.5 mg/dL (0.4-1.0); PHOSPHORUS 1.7 mg/dL (2.5-4.6)
[2018-09-06 09:15] LABS: CHOLESTEROL 343 mg/dL; HDL CHOLESTEROL 43 mg/dL; LDL CHOLESTEROL,CALCULATED 255 mg/dL; LDL/HDL RATIO 5.9 (<4.4); VLDL CHOLESTEROL 45 mg/dL
[2018-09-06] MEDS ORDERED: HYDROmorphone 0.5 MG/0.5 ML SYRINGE IVP PRN (09:25)
[2018-09-06] MEDS: INSULIN REGULAR HUMAN 100 UNIT in SODIUM CHLORIDE 0.9% 100ML 99 ML IV SCH (09:30)
--- NOTE | 2018-09-06 10:16 | DISCHARGE SUMMARY ---
Discharge Summary Admit Date: 09/04/18 Discharge Date: 09/06/18 Discharging Provider: Dr. Argueta Primary Care Provider: Carlie Staton Code Status: Attempt Resuscitation Condition at Discharge: Serious Discharge Disposition: 01 Home, Self Care - DIAGNOSES Discharge Diagnoses with Status of Each Condition: (1) DKA (diabetic ketoacidoses) Impression: Resolved but in am she was recurrent DKA as her Glu>400 with co2 that went from 13>17>23 with a closed gap. Given Lispro 30 units along with restarting her lantus at 30 units BID. Insulin gtt off, would continue with IVF's at 200 cc/hr. Will replace electrolytes with IV mag, neutra-phosph. Was admitted with a hx of a pain or stress induced trigger with the use of a weight loss supplement that exacerbated her free water loss and put her in over DKA with high AG. A1C was 10.4, much improved from her prior >13 in past. Pt will need diabetic referral for education and counseling. Qualifiers: Diabetes mellitus type: type 1 Diabetes mellitus complication detail: without coma Qualified Code(s): E10.10 - Type 1 diabetes mellitus with ketoacidosis without coma (2) Abdominal pain Impression: Treat with oral bentyl prn, add miralax/colace prn for constipation. Due to hx of chronic pain and bipolar/PTSD in past would augmentin regimen w/ uptitration of neurontin along with d/c dilaudid and placing on norco. No signs of infection on UA and lacking evidence of stones on CT. Likely fibroid uterus with some GERD-related pain, also constipation. UDS + for opiates and no narcotics on her home med list. Would tx with norco and d/c dilaudid as she has potential for abuse. Unclear of etiology but states that it is intermittent and ongoing for some time with a prior CT abd/pelvis dated 05/30/18 showing a fatty liver, prior cholecystectomy, fibroid uterus unchanged. (3) Chronic chest pain Impression: This seems to be chronic as she has been having this for several months now. 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 remains slightly tachy on tele, but has an ECG showing A-sensed, V-paced at 115 bpm which I believe is pain induced as opposed to her previous recurrence of tachy-moraima syndrome, uptitrate metoprolol as well as neurontin and place on NORCO and d/c IV Dilaudid. This pain regime should be good for her pain to her left posterior shoulder w/o other s/s of angina, dyspnea or jaw claudication. Her trop x 1 was neg, TSH was yobani l, mag was low ad will be replaced. Check lipids and treat with a statin if indicated. ASA daily and NTG prn. (4) Type 1 diabetes mellitus with hyperglycemia Impression: A1C is 10.4, which correlates to uncontrolled and brittle IDDM, would refer to Diabetic teaching, education and counseling. Patient would like to go back on CBG and not the insulin pump. Titrate her basal lantus to achieve glycemic control on High dose correctional ISS with the addition of lispro if glu>400. - HOSPITAL COURSE Hospital Course: Patient admitted for DKA, dehydration, mild MARGUERITE, chronic exacerbation of abdominal and chest pain. Her DKA is now Resolved with electrolyte disturbances that are been treated with neutrphosph and IVF's, was placed back on basal coverage and high dose ISS with good bolus coverage, IVF's at 200 cc/hr. Will replace electrolytes with IV mag, neutra-phosph. Patient was also admitted with a hx of a pain or stress induced trigger with the use of a weight loss supplement that exacerbated her free water loss and put her in over DKA with high AG. A1C was 10.4, much improved from her prior >13 in past. Pt will need diabetic referral for education and counseling. Patient's abd pain shows some chronicity w/ recent CT w/o pathology. Pelic US was ordered and pending. Treat with oral bentyl prn, add miralax/colace prn for constipation. Due to hx of chronic pain and bipolar/PTSD in past would augmentin regimen w/ uptitration of neurontin along with d/c dilaudid and placing on norco. No signs of infection on UA and lacking evidence of stones on CT. Likely fibroid uterus with some GERD- related pain, also constipation. UDS + for opiates and no narcotics on her home med list. Would tx with norco and d/c dilaudid as she has potential for abuse. Unclear of etiology but states that it is intermittent and ongoing for some time with a prior CT abd/pelvis dated 05/30/18 showing a fatty liver, prior zoran cystectomy, fibroid uterus unchanged. Patient's chest pain was addressed. This seems to be chronic as she has been having this for several months now. 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 remains slightly tachy on tele, but has an ECG showing A-sensed, V-paced at 115 bpm which I believe is pain induced as opposed to her previous recurrence of tachy-moraima syndrome, uptitrate metoprolol as well as neurontin and place on NORCO and d/c IV Dilaudid. This pain regime should be good for her pain to her left posterior shoulder w/o other s/s of angina, dyspnea or jaw claudication. Her trop x 1 was neg, TSH was normal, mag was low ad will be replaced. Check lipids and treat with a statin if indicated. ASA daily and NTG prn. IDDM was addressed. A1C is 10.4, which correlates to uncontrolled and brittle IDDM, would refer to Diabetic teaching, education and counseling. Patient would like to go back on CBG and not the insulin pump. Ti trate her basal lantus to achieve glycemic control on High dose correctional ISS with the addition of lispro if glu>400. - ALLERGIES Allergies/Adverse Reactions: Allergies Allergy/AdvReac Type Severity Reaction Status Date / Time sulfamethoxazole Allergy Intermediate rash/ Verified 09/04/18 13:13 [From Bactrim] adhesive Allergy Rash Verified 09/04/18 13:13 amoxicillin [Amoxicillin] Allergy unknown Verified 09/04/18 13:13 oxycodone [Oxycodone] AdvReac Intermediate hallucinate, Verified 09/04/18 13:13 vomit promethazine HCl * AdvReac Mild Nausea Verified 09/04/18 13:13 [From Phenergan] - MEDICATIONS Home Medications: Ambulatory Orders Medication Instructions Recorded Confirmed Lorazepam [Ativan] 1 mg PO QPM PRN 08/29/13 09/04/18 Insulin Glargine,Hum.rec.anlog 28 units SUBQ DAILY 09/05/13 09/04/18 [Lantus Solostar] Amitriptyline [Elavil] 50 mg PO QPM 07/03/14 09/04/18 Spironolactone 25 mg PO DAILY 04/11/17 09/04/18 Aspirin [Aspirin EC] 81 mg PO DAILY 10/08/17 09/04/18 Furosemide 80 mg PO DAILY 10/08/17 09/04/18 Levothyroxine Sodium 250 mcg PO QDAC 10/08/17 09/04/18 Metoprolol Succinate 25 mg PO QPM 10/08/17 09/04/18 Atorvastatin Calcium [Lipitor] 80 mg PO DAILY 01/20/18 09/04/18 Lisinopril [Zestril] 10 mg PO DAILY 01/20/18 09/04/18 Venlafaxine HCl [Venlafaxine HCl 150 mg PO DAILY 01/20/18 09/04/18 ER] Insulin Lispro [Humalog] 2 - 15 unit SUBQ ACHS 04/02/18 09/04/18 Gabapentin 100 mg PO TID 07/22/18 09/04/18 Insulin Glargine [Lantus Solostar] 32 unit SQ QPM 07/22/18 09/04/18 Cyclobenzaprine [Flexeril] 10 mg PO QPM PRN 09/04/18 09/04/18 Famotidine 20 mg PO BID 09/04/18 09/04/18 - PHYSICAL EXAM AT DISCHARGE General Appearance: positive: No acute distress, Alert, Anxious Eyes Bilateral: positive: Normal inspection, PERRL, EOMI ENT: positive: ENT inspection nml, Pharynx nml, No signs of dehydration Neck: positive: Nml inspection, Thyroid nml, No JVD, Trachea midline. negative: Thyromegaly Respiratory: positive: No respiratory distress, Breath sounds nml, Other (LACW mild tenderness w/o fluctuance over PM). negative: Wheezes, Rales, Rhonchi Cardiovascular: positive: Regular rate & rhythm, No murmur, No gallop. negative: Irregularly irregular, JVD present, Gallop/S4, Friction rub, Crepitus Peripheral Pulses: positive: 2+ Abdomen: positive: No organomegaly, Nml bowel sounds, Tenderness (mild lower quad tenderness with pelvic pain left>Right ), Hepatomegaly, Abnml bowel sounds. negative: Guarding, Rebound, Bruit Back: positive: Nml inspection. negative: CVA tenderness (R), CVA tenderness (L) Skin: positive: Color nml, No rash, Warm Extremities: positive: Non-tender, Full ROM, Nml appearance. negative: Pedal edema Neurologic/Psychiatric: positive: Oriented x3, CN's nml (2-12) - LABS Result Diagrams: 09/06/18 08:50 09/06/18 08:50 - FOLLOW UP Follow Up: PCP in 1-2 weeks - TIME SPENT Time Spent in Discharge (Minutes): 35
--- NOTE | 2018-09-06 10:32 | Discharge Plan ---
Discharge Plan Disposition: Home, Self Care Condition: Stable Prescriptions: HYDROcodone/ACET 10/325 [[place] 10 mg/325 mg] 1 tab PO Q4HR PRN #40 tablet PRN Reason: Pain Nitroglycerin [Nitrostat] 0.4 mg SL Q5MIN PRN #15 tablet PRN Reason: Chest Pain Cyclobenzaprine [Flexeril] 10 mg PO TID PRN 10 Days #30 tablet PRN Reason: muscle spasms Dicyclomine [Bentyl] 20 mg PO QID 10 Days #80 capsule Ezetimibe [Zetia] 10 mg PO DAILY #30 tablet Gabapentin 200 mg PO TID #60 capsule Insulin Glargine [Lantus Solostar] 35 unit SQ QPM #1 pen LORazepam [Ativan] 1 mg PO BID PRN #60 tablet PRN Reason: SLEEP/ANXIETY Metoprolol Succinate 25 mg PO BID #60 tab.er.24h Neutra-Phos [K-Phos Neutral] 500 mg PO BIDWM 10 Days #40 tablet Diet: Diabetic Activity Restrictions: No Restrictions Shower Restrictions: No Driving Restrictions: No Weight Bearing: Full Weight Instruction Topics: Cyclobenzaprine tablets, Acetaminophen Hydrocodone tablets or capsules, Dicyclomine tablets or capsules, Metoprolol tablets, Ezetimibe Tablets, Insulin Glargine injection, Nitroglycerin sublingual tablets, Electrolytes, Meds Cholesterol, Diabetes Type 1 Coping, Diabetes Type 1, ED Chest Pain NonCardiac Additional Instructions or Follow Up instructions: Will have pt follow up with PCP for further care or return if pt worsens. Pt comfortable with plan. Pt comfortable with plan and will return if he worsens. Follow-Up Care: [facility] - Diabetes Ed (In 1-2 weeks) No Smoking: If you smoke, Please STOP! Call for help. Follow-up with: Amisha Staton MD [Primary Care Provider] - 2 Weeks
[2018-09-06] MEDS ORDERED: EZETIMIBE 10 MG TABLET PO SCH (11:00)
[2018-09-06] MEDS ORDERED: CYCLOBENZAPRINE 10 MG TABLET PO SCH (14:00)
== END 2018-09-06 13:37 | disposition home or self-care (01) | DRG 639 ==
LOC: ED 12:59 → ICU 16:21 → OBSVTOIN 09-05 11:14 → MS2 09-05 19:56
PROVIDERS: ADMIT Family Medicine; ATTEND Family Medicine
DX: E10.10 Type 1 diabetes mellitus with ketoacidosis without coma (principal); Z79.4 Long term (current) use of insulin; E10.42 Type 1 diabetes mellitus with diabetic polyneuropathy; G89.29 Other chronic pain; R10.9 Unspecified abdominal pain; M54.9 Dorsalgia, unspecified; R07.9 Chest pain, unspecified; N83.209 Unspecified ovarian cyst, unspecified side; D25.9 Leiomyoma of uterus, unspecified; I11.0 Hypertensive heart disease with heart failure; I50.9 Heart failure, unspecified; Z86.718 Personal history of other venous thrombosis and embolism; Z86.711 Personal history of pulmonary embolism; E78.00 Pure hypercholesterolemia, unspecified; I49.9 Cardiac arrhythmia, unspecified; E03.9 Hypothyroidism, unspecified; K21.9 Gastro-esophageal reflux disease without esophagitis; N80.9 Endometriosis, unspecified; F31.9 Bipolar disorder, unspecified; F41.9 Anxiety disorder, unspecified; F41.0 Panic disorder [episodic paroxysmal anxiety]; F43.10 Post-traumatic stress disorder, unspecified; F40.240 Claustrophobia; M10.9 Gout, unspecified; Z95.0 Presence of cardiac pacemaker; Z90.721 Acquired absence of ovaries, unilateral; N28.9 Disorder of kidney and ureter, unspecified; Z91.048 Other nonmedicinal substance allergy status; Z79.82 Long term (current) use of aspirin; Z88.2 Allergy status to sulfonamides; Z96.22 Myringotomy tube(s) status; E78.5 Hyperlipidemia, unspecified; E86.0 Dehydration; K59.00 Constipation, unspecified; Z90.49 Acquired absence of other specified parts of digestive tract; R00.0 Tachycardia, unspecified; M25.512 Pain in left shoulder
CPT/HCPCS: 36410; 36415; 74160; 80048; 80053; 80061; 80069; 80306; 81001; 81003; 81025; 82009; 82803; 82947; 83036; 83690; 83721; 83735; 83880; 83930; 84100; 84443; 84484; 84550; 84703; 85025; 87086; 87150; 93005; 96361; 96365; 96366; 96372; 96375; 96376; 99283; 99284

== ENCOUNTER → 2018-09-23 | Outpatient (CLI) | payer MEDICARE, MEDICAID | END | disposition short-term general hospital (02) | LOC: EMS 23:04 | PROVIDERS: ATTEND Surgery | DX: R07.9 Chest pain, unspecified (principal) | CPT/HCPCS: A0425; A0427 ==

== ENCOUNTER 2018-12-07 22:11 | Emergency (ER) | payer MEDICARE, MEDICAID ==
--- NOTE | 2018-12-07 23:43 | XRAY Report ---
Reason: Chest Pain Procedure Date: 12/07/2018 Accession Number: [id number] / [id number] Procedure: XR - Chest 1 View X-Ray CPT Code: 92944 FULL RESULT: EXAM: CHEST RADIOGRAPHY EXAM DATE: 12/07/2018 11:21 PM. CLINICAL HISTORY: Chest Pain. COMPARISON: CHEST 1 VIEW 09/02/2018 11:51 AM XR CHEST PA AND LAT 01/23/2009 12:08 PM CHEST 1 VIEW 07/22/2018 1:45 PM. TECHNIQUE: 1 view. FINDINGS: Lungs/Pleura: Low lung volumes with resultant accentuation of the pulmonary interstitial and vascular markings. No consolidation, effusion, or definite pneumothorax. Mediastinum: Within exam limitations, the cardiomediastinal contour is normal. Other: There is a left subclavian pacemaker device with the tips at the right atrium, the epicardium, and right ventricle apex. IMPRESSION: Stable appearance of the chest without acute cardiopulmonary abnormality. RADIA
[2018-12-07 23:52] LABS: BASOPHILS % (AUTO) 0.8 %; EOSINOPHILS % (AUTO) 0.8 %; HGB - HEMOGLOBIN 12.8 g/dL (12.0-16.0); LYMPHOCYTES # (AUTO) 0.8 10^3/uL (1.5-3.5); LYMPHOCYTES % (AUTO) 14.1 %; MEAN CORPUSCULAR HEMOGLOBIN 31.4 pg (27.0-31.0); MEAN CORPUSCULAR VOLUME 95.2 fL (81.0-99.0); MEAN PLATELET VOLUME 7.8 fL (7.9-10.8); MONOCYTES # (AUTO) 0.5 10^3/uL (0.0-1.0); MONOCYTES % (AUTO) 9.7 %; NEUTROPHILS # (AUTO) 4.2 10^3/uL (1.5-6.6); NEUTROPHILS % (AUTO) 74.6 %; PLT - PLATELET COUNT 230 10^3/uL (130-450); RED BLOOD COUNT 4.06 10^6/uL (4.20-5.40); RED CELL DISTRIBUTION WIDTH 14.3 % (12.0-15.0); WHITE BLOOD COUNT 5.7 x10^3/uL (4.8-10.8)
[2018-12-08 00:06] LABS: ALBUMIN 2.8 g/dL (3.2-5.5); ALBUMIN/GLOBULIN RATIO 0.8 (1.0-2.2); BILIRUBIN,TOTAL 0.4 mg/dL (0.2-1.0); CALCIUM 8.5 mg/dL (8.5-10.3); CREATININE 0.8 mg/dL (0.4-1.0); TOTAL PROTEIN 6.4 g/dL (6.7-8.2)
[2018-12-08] MEDS ORDERED: KETOROLAC 30 MG/ML VIAL IVP STA (00:20)
[2018-12-08] MEDS ORDERED: SODIUM CHLORIDE 0.9% 1,000 ML IV ONE ×2 (00:21→01:57)
[2018-12-08] MEDS ORDERED: INSULIN REGULAR HUMAN 100 UNIT/1 ML 10 ML MDV SUBQ STA (00:21)
[2018-12-08] MEDS ORDERED: MORPHINE 10 MG/ML VIAL IVP STA ×2 (02:51→02:57)
--- NOTE | 2018-12-08 03:14 | ED Physician Documentation ---
PD HPI CHEST PAIN - Stated complaint Stated Complaint: HIGH BLOOD SUGAR, CHEST PAIN - Chief complaint Chief Complaint: Cardiac - History obtained from History obtained from: Patient - History of Present Illness Timing - onset: How many days ago (2) Timing - onset during: Rest Timing - duration: Days Timing - details: Gradual onset, Still present Pain level max: 7 Pain level now: 7 Quality: Aching, Sharp, Stabbing Location: Left chest Radiation: Left upper extremity Improved by: Nothing Worsened by: Movement, Palpation Associated symptoms: Cough. No: Shortness of air, Diaphoresis, Nausea, Vomiting, Feeling faint / dizzy, General Weakness, Palpitations Similar symptoms before: Work up / diagnostics - Treatment prior to arrival Treatment prior to arrival: none - Additional information Additional information: Reports she has had an ongoing cough and chest pain. Review of Systems Ten Systems: 10 systems reviewed and negative Constitutional: denies: Fever, Chills Nose: reports: Rhinorrhea / runny nose, Congestion Throat: reports: Sore throat Cardiac: reports: Chest pain / pressure. denies: Pedal edema Respiratory: reports: Cough. denies: Dyspnea, Wheezing GI: denies: Abdominal Pain, Nausea, Vomiting Musculoskeletal: denies: Extremity pain Neurologic: denies: Focal weakness, Numbness PD PAST MEDICAL HISTORY - Past Medical History Past Medical History: Yes Cardiovascular: Congestive heart failure, Hypertension, High cholesterol, Deep vein thrombosis, Pulmonary embolism, Arrhythmia, Other Respiratory: Pneumonia, Other Neuro: Peripheral neuropathy Endocrine/Autoimmune: Type 1 diabetes, HyPOthyroidism, Other GI: GERD MANAGER MEDICAL WRITING: Endometriosis, Fibroids, Other : None HEENT: None Psych: Depression, Anxiety, Bipolar disorder, Panic attacks, Post traumatic stress disorder, Claustrophobia Musculoskeletal: Gout, Chronic back pain Derm: Other - Past Surgical History Past Surgical History: Yes General: Cholecystectomy, Appendectomy, Hiatal hernia repair, Colonoscopy, EGD /MANAGER MEDICAL WRITING: Oophrectomy, Other Cardiovascular: Pacemaker, Other HEENT: Myringotomy (tubes), Tonsil/Adenoidectomy, Other - Present Medications Home Medications: Ambulatory Orders Medication Instructions Recorded Confirmed Insulin Glargine,Hum.rec.anlog 28 units SUBQ DAILY 09/05/13 09/04/18 [Lantus Solostar] Amitriptyline [Elavil] 50 mg PO QPM 07/03/14 09/04/18 Aspirin [Aspirin EC] 81 mg PO DAILY 10/08/17 09/04/18 Levothyroxine Sodium 250 mcg PO QDAC 10/08/17 09/04/18 Atorvastatin Calcium [Lipitor] 80 mg PO DAILY 01/20/18 09/04/18 Lisinopril [Zestril] 10 mg PO DAILY 01/20/18 09/04/18 Venlafaxine HCl [Venlafaxine HCl 150 mg PO DAILY 01/20/18 09/04/18 ER] Insulin Lispro [Humalog] 2 - 15 unit SUBQ ACHS 04/02/18 09/04/18 Famotidine 20 mg PO BID 09/04/18 09/04/18 Cyclobenzaprine [Flexeril] 10 mg PO TID PRN 10 Days #30 tablet 09/06/18 Dicyclomine [Bentyl] 20 mg PO QID 10 Days #80 capsule 09/06/18 Ezetimibe [Zetia] 10 mg PO DAILY #30 tablet 09/06/18 Gabapentin 200 mg PO TID #60 capsule 09/06/18 HYDROcodone/ACET 10/325 [[place] 10 1 tab PO Q4HR PRN #40 tablet 09/06/18 mg/325 mg] Insulin Glargine [Lantus Solostar] 35 unit SQ QPM #1 pen 09/06/18 LORazepam [Ativan] 1 mg PO BID PRN #60 tablet 09/06/18 Metoprolol Succinate 25 mg PO BID #60 tab.er.24h 09/06/18 Neutra-Phos [K-Phos Neutral] 500 mg PO BIDWM 10 Days #40 tablet 09/06/18 Nitroglycerin [Nitrostat] 0.4 mg SL Q5MIN PRN #15 tablet 09/06/18 - Allergies Allergies/Adverse Reactions: Allergies Allergy/AdvReac Type Severity Reaction Status Date / Time sulfamethoxazole Allergy Intermediate rash/ Verified 09/04/18 13:13 [From Bactrim] adhesive Allergy Rash Verified 09/04/18 13:13 amoxicillin [Amoxicillin] Allergy unknown Verified 09/04/18 13:13 oxycodone [Oxycodone] AdvReac Intermediate hallucinate, Verified 09/04/18 13:13 vomit promethazine HCl * AdvReac Mild Nausea Verified 02/09/19 13:13 [From Phenergan] - Social History Does the pt smoke?: No Smoking Status: Never smoker Does the pt drink ETOH?: No Does the pt have substance abuse?: No - Immunizations Immunizations are current?: Yes - POLST Patient has POLST: No POLST Status: Full Code Results - Vitals Vitals: Vital Signs - 24 hr 12/07/18 12/07/18 12/08/18 22:25 23:54 00:47 Temperature 36.8 C Heart Rate 123 H 112 H 109 H Respiratory 18 18 18 Rate Blood Pressure 163/99 H 167/76 H 165/85 H O2 Saturation 96 99 98 12/08/18 02:09 Temperature Heart Rate 106 H Respiratory 13 Rate Blood Pressure 153/92 H O2 Saturation 99 Oxygen O2 Source Room air - EKG (time done) No standard instances Rate: Rate (enter#) (121), Tachy Rhythm: Other (tachycardia, paced) [place]: Normal Intervals: Normal [place] QRS: Normal Ischemia: Non specific changes, Other (negative for sgarbossa's criteria ) Compare to prior EKG: Unchanged from prior EKG Computer interpretation: Disagree with computer (repeat EKG with paced rhythm, rate 105 again neg sgarbossa's criteria.) - Labs Labs: Laboratory Tests 12/07/18 12/07/18 12/07/18 23:45 23:45 23:45 WBC 5.7 RBC 4.06 L Hgb 12.8 Hct 38.7 MCV 95.2 MCH 31.4 H MCHC 33.0 RDW 14.3 Plt Count 230 MPV 7.8 L Neut # (Auto) 4.2 Lymph # (Auto) 0.8 L [place] # (Auto) 0.5 Eos # (Auto) 0.0 Baso # (Auto) 0.0 Absolute Nucleated RBC 0.00 Nucleated RBC % 0.0 D-Dimer Sodium 130 L Potassium 4.7 Chloride 94 L Carbon Dioxide 24 Anion Gap 12.0 BUN 16 Creatinine 0.8 Estimated GFR (MDRD) 79 L Glucose 541 H* POC Whole Bld Glucose Calcium 8.5 Total Bilirubin 0.4 AST 25 ALT 23 Alkaline Phosphatase 188 H Troponin I < 0.04 Total Protein 6.4 L Albumin 2.8 L Globulin 3.6 Albumin/Globulin Ratio 0.8 L Lipase 33 12/07/18 12/07/18 12/08/18 23:45 23:48 02:00 WBC RBC Hgb Hct MCV MCH MCHC RDW Plt Count MPV Neut # (Auto) Lymph # (Auto) [place] # (Auto) Eos # (Auto) Baso # (Auto) Absolute Nucleated RBC Nucleated RBC % D-Dimer 212.2 Sodium Potassium Chloride Carbon Dioxide Anion Gap BUN Creatinine Estimated GFR (MDRD) Glucose POC Whole Bld Glucose 499 H Calcium Total Bilirubin AST ALT Alkaline Phosphatase Troponin I < 0.04 Total Protein Albumin Globulin Albumin/Globulin Ratio Lipase 12/08/18 02:14 WBC RBC Hgb Hct MCV MCH MCHC RDW Plt Count MPV Neut # (Auto) Lymph # (Auto) [place] # (Auto) Eos # (Auto) Baso # (Auto) Absolute Nucleated RBC Nucleated RBC % D-Dimer Sodium Potassium Chloride Carbon Dioxide Anion Gap BUN Creatinine Estimated GFR (MDRD) Glucose POC Whole Bld Glucose 312 H Calcium Total Bilirubin AST ALT Alkaline Phosphatase Troponin I Total Protein Albumin Globulin Albumin/Globulin Ratio Lipase hyperglycemia D-dimer neg. Troponins neg. - Rads (name of study) No standard instances Radiology: Final report received (no acute disease) PD MEDICAL DECISION MAKING - ED course ED course: 38 y/o F with hx of chronic chest pain, reported previous episode of pericarditis. Reported worsening chest pain for 2-3 days. Constant sharp, radiating to shoulder. Reports she has had a cough for a few days and cold, runny nose, sore t hroat. Feels it is her pacemaker causing her pain. Well appearing, mild tachycardia here but pt very anxious. DDx includes ACS/WI, pericarditis, PE, Pneumonia, chest wall strain, pneumonia, Thoracic aortic dissection. EKG nonischemic with repeat EKG unchnaged, serial troponins neg. CXR is clear. Labs are stable except hyperglycemia but pt not in DKA. Given multiple liters of fluid and insulin. D-dimer is negative. Suspect this is related to her cold symptoms. Blood sugar now 312 from the 500s. She is stable for outpt f/u. Given return precautions in case of worsening. Departure - Departure Disposition: 01 Home, Self Care Clinical Impression: Chest pain of uncertain etiology Condition: Good Instructions: ED Chest Pain UKO Follow-Up: Amisha Staton DO [Primary Care Provider] - Within 3 Days (recheck your symptoms) Comments: Your labs, EKG, chest xray, d-dimer were all negative today except for elevated blood sugars. Your blood sugar was improved with fluids and insulin. You should follow up with your doctor however to recheck your symptoms. Return to the ED if sob, fever or worsening pain.
[2018-12-08 03:37] VITALS: BP 132/76
== END 2018-12-08 03:35 | disposition home or self-care (01) ==
LOC: ED 22:11
DX: R07.9 Chest pain, unspecified (principal); E10.65 Type 1 diabetes mellitus with hyperglycemia; R00.0 Tachycardia, unspecified; Z95.0 Presence of cardiac pacemaker; E10.42 Type 1 diabetes mellitus with diabetic polyneuropathy; Z79.4 Long term (current) use of insulin; I11.0 Hypertensive heart disease with heart failure; I50.9 Heart failure, unspecified; Z86.711 Personal history of pulmonary embolism; Z86.718 Personal history of other venous thrombosis and embolism; Z79.82 Long term (current) use of aspirin
CPT/HCPCS: 36415; 71045; 80053; 83690; 84484; 85025; 85379; 93005; 96361; 96374; 96375; 99283; 99284; J1815

== ENCOUNTER 2019-01-22 13:26 | Emergency (ER) | payer MEDICARE, MEDICAID ==
[2019-01-22 13:53] LABS: GLUCOSE, URINE (UA) 100 mg/dL (NEGATIVE); KETONES,URINE (UA) >=80 mg/dL (NEGATIVE); LEUKOCYTE ESTERASE, URINE NEGATIVE (NEGATIVE); NITRITE,URINE NEGATIVE (NEGATIVE); OCCULT BLOOD,URINE LARGE (NEGATIVE); PROTEIN,URINE >=300 mg/dL (NEGATIVE); UROBILINOGEN,URINE 1 (NORMAL) E.U./dL (NORMAL)
[2019-01-22 13:58] LABS: BILIRUBIN,URINE LARGE (NEGATIVE); CLARITY,URINE CLOUDY (CLEAR); ICTOTEST,URINE POSITIVE
[2019-01-22 14:03] LABS: BACTERIA,URINE Few /HPF (None Seen); CASTS, URINE 3-5 Granular Casts /LPF; RBC,URINE TNTC /HPF (0-5); SQUAMOUS EPITHELIAL CELL,UR MANY Squamous (<= Few)
[2019-01-22] MEDS ORDERED: SODIUM CHLORIDE 0.9% 1,000 ML IV ONE ×2 (14:47→16:43)
[2019-01-22 15:47] LABS: VBG PH 7.359 (7.31-7.41)
[2019-01-22 15:53] LABS: BASOPHILS # (AUTO) 0.1 10^3/uL (0.0-0.1); BASOPHILS % (AUTO) 0.6 %; EOSINOPHILS % (AUTO) 0.5 %; HGB - HEMOGLOBIN 13.1 g/dL (12.0-16.0); LYMPHOCYTES # (AUTO) 0.7 10^3/uL (1.5-3.5); LYMPHOCYTES % (AUTO) 8.2 %; MEAN CORPUSCULAR HEMOGLOBIN 32.7 pg (27.0-31.0); MEAN CORPUSCULAR HGB CONC 33.1 g/dL (32.0-36.0); MEAN CORPUSCULAR VOLUME 98.8 fL (81.0-99.0); MONOCYTES # (AUTO) 0.5 10^3/uL (0.0-1.0); MONOCYTES % (AUTO) 6.1 %; NEUTROPHILS # (AUTO) 6.9 10^3/uL (1.5-6.6); RED BLOOD COUNT 4.01 10^6/uL (4.20-5.40); RED CELL DISTRIBUTION WIDTH 12.9 % (12.0-15.0); WHITE BLOOD COUNT 8.2 x10^3/uL (4.8-10.8)
[2019-01-22 15:54] LABS: VBG BASE EXCESS -11.1 mmol/L (-2 - +2); VBG PCO2 21.6 mmHg (41-51); VBG PO2 178.3 mmHg (25-47); VBG TOTAL CO2 12.6 mmol/L (24-29)
--- NOTE | 2019-01-22 15:57 | ED Physician Documentation ---
History of Present Illness - Stated complaint Stated Complaint: NAUSEA/HIGH BP - Chief complaint Chief Complaint: General - History obtained from History obtained from: Patient - History of Present Illness Timing: How many days ago (3) - Additonal information Additional information: 38 y/o female diabetic with a 3 day history of sugars running high. Has now dev eloped nausea and rapid breathing. She felt that she was in DKA. She has been under a lot of stress with helping her father recovering from a heart attack. Review of Systems Constitutional: reports: Myalgias, Fatigue, Sweats. denies: Fever, Chills Eyes: denies: Decreased vision Ears: denies: Ear pain Nose: denies: Rhinorrhea / runny nose, Congestion Throat: denies: Sore throat Cardiac: denies: Chest pain / pressure, Palpitations Respiratory: denies: Dyspnea, Cough GI: reports: Abdominal Pain, Nausea, Vomiting : denies: Dysuria, Frequency Skin: denies: Rash Musculoskeletal: denies: Neck pain, Back pain, Extremity pain Neurologic: reports: Headache. 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rec.anlog 28 units SUBQ DAILY 09/05/13 09/04/18 [Lantus Solostar] Amitriptyline [Elavil] 50 mg PO QPM 07/03/14 09/04/18 Aspirin [Aspirin EC] 81 mg PO DAILY 10/08/17 09/04/18 Levothyroxine Sodium 250 mcg PO QDAC 10/08/17 09/04/18 Atorvastatin Calcium [Lipitor] 80 mg PO DAILY 01/20/18 09/04/18 Lisinopril [Zestril] 10 mg PO DAILY 01/20/18 09/04/18 Venlafaxine HCl [Venlafaxine HCl 150 mg PO DAILY 01/20/18 09/04/18 ER] Insulin Lispro [Humalog] 2 - 15 unit SUBQ ACHS 04/02/18 09/04/18 Famotidine 20 mg PO BID 09/04/18 09/04/18 Cyclobenzaprine [Flexeril] 10 mg PO TID PRN 10 Days #30 tablet 09/06/18 Dicyclomine [Bentyl] 20 mg PO QID 10 Days #80 capsule 09/06/18 Ezetimibe [Zetia] 10 mg PO DAILY #30 tablet 09/06/18 Gabapentin 200 mg PO TID #60 capsule 09/06/18 HYDROcodone/ACET 10/325 [[place] 10 1 tab PO Q4HR PRN #40 tablet 09/06/18 mg/325 mg] Insulin Glargine [Lantus Solostar] 35 unit SQ QPM #1 pen 09/06/18 LORazepam [Ativan] 1 mg PO BID PRN #60 tablet 09/06/18 Metoprolol Succinate 25 mg PO BID #60 tab.er.24h 09/06/18 Neutra-Phos [K-Phos Neutral] 500 mg PO BIDWM 10 Days #40 tablet 09/06/18 Nitroglycerin [Nitrostat] 0.4 mg SL Q5MIN PRN #15 tablet 09/06/18 - Allergies Allergies/Adverse Reactions: Allergies Allergy/AdvReac Type Severity Reaction Status Date / Time sulfamethoxazole Allergy Intermediate rash/ Verified 09/04/18 13:13 [From Bactrim] adhesive Allergy Rash Verified 09/04/18 13:13 amoxicillin [Amoxicillin] Allergy unknown Verified 09/04/18 13:13 oxycodone [Oxycodone] AdvReac Intermediate hallucinate, Verified 09/04/18 13:13 vomit promethazine HCl * AdvReac Mild Nausea Verified 09/04/18 13:13 [From Phenergan] - Social History Does the pt smoke?: No Smoking Status: Never smoker Does the pt drink ETOH?: No Does the pt have substance abuse?: No - Immunizations Immunizations are current?: Yes - POLST Patient has POLST: No POLST Status: Full Code PD ED PE NORMAL - Vitals Vital signs reviewed: Yes (tachy hypertensive ) - General General: Alert and oriented X 3, Well developed/nourished - HEENT HEENT: Atraumatic, PERRL, EOMI, Ears normal, Dentition benign, Other (dry mucous membranes ) - Neck Neck: Supple, no meningeal sign, No bony TTP - Cardiac Cardiac: No murmur, Other (tachy to 110) - Respiratory Respiratory: No respiratory distress, Clear bilaterally, Other (no chest wall tenderness ) - Abdomen Abdomen: Soft, Non tender - Back Back: No CVA TTP, No spinal TTP - Derm Derm: Normal color, Warm and dry, No rash - Extremities Extremities: No deformity, No edema - Neuro Neuro: Alert and oriented X 3, biological lab technician 2-12 intact, No motor deficit, No sensory deficit, Normal speech Eye Opening: Spontaneous Motor: Obeys Commands Verbal: Oriented GCS Score: 15 - Psych Psych: Normal mood, Normal affect Results - Vitals Vitals: Vital Signs - 24 hr 01/22/19 01/22/19 01/22/19 13:28 16:45 17:26 Temperature 36.5 C Heart Rate 121 H 105 H 107 H Respiratory 18 18 16 Rate Blood Pressure 139/74 H 161/70 H 167/72 H O2 Saturation 99 100 100 01/22/19 01/22/19 17:58 21:12 Temperature 37.6 C H Heart Rate 109 H 111 H Respiratory 16 16 Rate Blood Pressure 172/79 H 143/71 H O2 Saturation 100 99 Oxygen O2 Source Room air - Labs Labs: Laboratory Tests 01/22/19 01/22/19 01/22/19 13:33 13:43 15:30 WBC 8.2 RBC 4.01 L Hgb 13.1 Hct 39.6 MCV 98.8 MCH 32.7 H MCHC 33.1 RDW 12.9 Plt Count MPV Not Reportable Neut # (Auto) 6.9 H Lymph # (Auto) 0.7 L [place] # (Auto) 0.5 Eos # (Auto) 0.0 Baso # (Auto) 0.1 Absolute Nucleated RBC 0.00 Nucleated RBC % 0.0 Manual Slide Review Indicated Platelet Estimate NORMAL (130-450,000) Platelet Morphology PLATELET CLUMPING RBC Morph Micro Appear NORMAL APPEARANCE VBG pH VBG pCO2 VBG pO2 VBG HCO3 VBG Total CO2 VBG O2 Saturation VBG Base Excess Sodium Potassium Chloride Carbon Dioxide Anion Gap BUN Creatinine Estimated GFR (MDRD) Glucose POC Whole Bld Glucose 195 H Lactic Acid Calcium Total Bilirubin AST ALT Alkaline Phosphatase Troponin I Total Protein Albumin Globulin Albumin/Globulin Ratio Lipase Urine Color LT RED Urine Clarity CLOUDY Urine pH 6.0 Ur Specific [place] 1.025 Urine Protein >=300 H Urine Glucose (UA) 100 H Urine Ketones >=80 H Urine Occult Blood LARGE H Urine Nitrite NEGATIVE Urine Bilirubin LARGE H Urine Urobilinogen 1 (NORMAL) Ur Leukocyte Esterase NEGATIVE Urine RBC TNTC H Urine WBC 4-5 Ur Squamous Epith Cells MANY Squamous H Urine Bacteria Few Urine Casts 3-5 Granular Casts Ur Microscopic Review INDICATED Urine Culture Comments NOT INDICATED Serum Ketones 01/22/19 01/22/19 01/22/19 15:30 15:30 15:30 WBC RBC Hgb Hct MCV MCH MCHC RDW Plt Count MPV Neut # (Auto) Lymph # (Auto) [place] # (Auto) Eos # (Auto) Baso # (Auto) Absolute Nucleated RBC Nucleated RBC % Manual Slide Review Platelet Estimate Platelet Morphology RBC Morph Micro Appear VBG pH VBG pCO2 VBG pO2 VBG HCO3 VBG Total CO2 VBG O2 Saturation VBG Base Excess Sodium 129 L Potassium 4.9 Chloride 95 L Carbon Dioxide 10 L* Anion Gap 24.0 H BUN 18 Creatinine 1.2 H Estimated GFR (MDRD) 50 L Glucose 471 H POC Whole Bld Glucose Lactic Acid 1.3 Calcium 8.5 Total Bilirubin 2.0 H AST 19 ALT 16 Alkaline Phosphatase 168 H Troponin I < 0.04 Total Protein 6.9 Albumin 2.8 L Globulin 4.1 Albumin/Globulin Ratio 0.7 L Lipase 20 L Urine Color Urine Clarity Urine pH Ur Specific [place] Urine Protein Urine Glucose (UA) Urine Ketones Urine Occult Blood Urine Nitrite Urine Bilirubin Urine Urobilinogen Ur Leukocyte Esterase Urine RBC Urine WBC Ur Squamous Epith Cells Urine Bacteria Urine Casts Ur Microscopic Review Urine Culture Comments Serum Ketones LARGE H 01/22/19 01/22/19 01/22/19 15:30 16:59 17:53 WBC RBC Hgb Hct MCV MCH MCHC RDW Plt Count MPV Neut # (Auto) Lymph # (Auto) [place] # (Auto) Eos # (Auto) Baso # (Auto) Absolute Nucleated RBC Nucleated RBC % Manual Slide Review Platelet Estimate Platelet Morphology RBC Morph Micro Appear VBG pH 7.359 VBG pCO2 21.6 L VBG pO2 178.3 H VBG HCO3 11.9 L VBG Total CO2 12.6 L VBG O2 Saturation 99.0 H VBG Base Excess -11.1 L Sodium Potassium Chloride Carbon Dioxide Anion Gap BUN Creatinine Estimated GFR (MDRD) Glucose POC Whole Bld Glucose 564 H* Lactic Acid Calcium Total Bilirubin AST ALT Alkaline Phosphatase Troponin I Total Protein Albumin Globulin Albumin/Globulin Ratio Lipase Urine Color LT. YELLOW Urine Clarity HAZY Urine pH 5.0 Ur Specific [place] 1.015 Urine Protein 30 H Urine Glucose (UA) >=1000 H Urine Ketones >=80 H Urine Occult Blood TRACE-LYSE Urine Nitrite NEGATIVE Urine Bilirubin NEGATIVE Urine Urobilinogen 0.2 (NORMAL) Ur Leukocyte Esterase NEGATIVE Urine RBC 0-5 Urine WBC 0-3 Ur Squamous Epith Cells FEW Squamous Urine Bacteria None Seen Urine Casts Ur Microscopic Review INDICATED Urine Culture Comments NOT INDICATED Serum Ketones 01/22/19 01/22/19 18:02 21:15 WBC RBC Hgb Hct MCV MCH MCHC RDW Plt Count MPV Neut # (Auto) Lymph # (Auto) [place] # (Auto) Eos # (Auto) Baso # (Auto) Absolute Nucleated RBC Nucleated RBC % Manual Slide Review Platelet Estimate Platelet Morphology RBC Morph Micro Appear VBG pH VBG pCO2 VBG pO2 VBG HCO3 VBG Total CO2 VBG O2 Saturation VBG Base Excess Sodium Potassium Chloride Carbon Dioxide Anion Gap BUN Creatinine Estimated GFR (MDRD) Glucose POC Whole Bld Glucose 397 H 133 H Lactic Acid Calcium Total Bilirubin AST ALT Alkaline Phosphatase Troponin I Total Protein Albumin Globulin Albumin/Globulin Ratio Lipase Urine Color Urine Clarity Urine pH Ur Specific [place] Urine Protein Urine Glucose (UA) Urine Ketones Urine Occult Blood Urine Nitrite Urine Bilirubin Urine Urobilinogen Ur Leukocyte Esterase Urine RBC Urine WBC Ur Squamous Epith Cells Urine Bacteria Urine Casts Ur Microscopic Review Urine Culture Comments Serum Ketones PD MEDICAL DECISION MAKING - ED course Complexity details: reviewed old records, reviewed results, re-evaluated patient, considered differential, d/w patient ED course: 38-year-old brittle diabetic female with difficult IV access has become ill with elevated blood sugar and she is in DKA. IV is established by anesthesia and she is administered saline and an insulin drip is begun. The ICU here is closed and we are seeking admission to another facility. During the intervening time the patient has received 2 L of saline and has been on an insulin drip with some improvement and her IV infiltrates. An IV is placed into her foot and anesthesia is consulted for placement of a PICC line. The PICC line is placed and the patient is ultimately transferred to [facility]. Departure - Departure Disposition: 02 Transfer Acute Care Hosp Clinical Impression: DKA (diabetic ketoacidoses) Qualifiers: Diabetes mellitus type: type 1 Diabetes mellitus complication detail: without coma Qualified Code(s): E10.10 - Type 1 diabetes mellitus with ketoacidosis without coma Discharge Date/Time: 01/22/19 22:00
[2019-01-22 16:08] LABS: ALBUMIN 2.8 g/dL (3.2-5.5); ALBUMIN/GLOBULIN RATIO 0.7 (1.0-2.2); ALKALINE PHOSPHATASE 168 IU/L (42-121); ALT ALANINE AMINOTRANSFERASE 16 IU/L (10-60); AST ASPARTATE AMINOTRANSFERASE 19 IU/L (10-42); BUN - BLOOD UREA NITROGEN 18 mg/dL (6-20); CALCIUM 8.5 mg/dL (8.5-10.3); CARBON DIOXIDE - CO2 10 mmol/L (21-32); CHLORIDE 95 mmol/L (101-111); CREATININE 1.2 mg/dL (0.4-1.0); GFR - MDRD 50 (>89); GLUCOSE 471 mg/dL (70-100); LIPASE 20 U/L (22-51); SODIUM 129 mmol/L (135-145); TOTAL PROTEIN 6.9 g/dL (6.7-8.2)
[2019-01-22 16:20] LABS: KETONES, SERUM (ACETEST) LARGE (NEGATIVE); PLATELET ESTIMATE, MANUAL NORMAL (130-450,000) (NORMAL); PLATELET MORPHOLOGY PLATELET CLUMPING (NORMAL); RBC MORPHOLOGY (MULTIPLE) NORMAL APPEARANCE (NORMAL)
[2019-01-22] MEDS ORDERED: ONDANSETRON 4 MG/2 ML VIAL IVP STA (16:44)
--- NOTE | 2019-01-22 16:49 | CONSULTATION NOTE ---
Consultation Report: Called to start IV on a 38 y/o female with a myriad of problems. Nurses unsuccessful with 6 attempts. US used on leftt arm, attempted twice useing 2% lidocaine. Second attempt successful with a 20 ga, IV flushes/aspirates. Secured with tegaderm and tape.
[2019-01-22] MEDS ORDERED: INSULIN REGULAR HUMAN 100 UNIT in SODIUM CHLORIDE 0.9% 100ML 99 ML IV SCH (17:00)
[2019-01-22 18:02] LABS: GLUCOSE, URINE (UA) >=1000 mg/dL (NEGATIVE); KETONES,URINE (UA) >=80 mg/dL (NEGATIVE); LEUKOCYTE ESTERASE, URINE NEGATIVE (NEGATIVE); NITRITE,URINE NEGATIVE (NEGATIVE); OCCULT BLOOD,URINE TRACE-LYSE (NEGATIVE); PROTEIN,URINE 30 mg/dL (NEGATIVE); UROBILINOGEN,URINE 0.2 (NORMAL) E.U./dL (NORMAL)
[2019-01-22 18:17] LABS: BILIRUBIN,URINE NEGATIVE (NEGATIVE); CLARITY,URINE HAZY (CLEAR); ICTOTEST,URINE NEGATIVE
[2019-01-22 18:41] LABS: BACTERIA,URINE None Seen /HPF (None Seen); RBC,URINE 0-5 /HPF (0-5); SQUAMOUS EPITHELIAL CELL,UR FEW Squamous (<= Few)
--- NOTE | 2019-01-22 20:22 | ED Physician Documentation ---
ED Addendum - Addendum Addendum: 01/22/19 20:[address] Casper, briefly this is a young woman in DKA, she has received IV fluids and insulin drip. Our ICU was full and at shift change we were waiting for [facility] to call back. I spoke with the nurse practitioner there who wanted an EKG and troponin, if these were nonischemic she is accepting in transfer. 01/22/19 20:23 Accepting UNDERGROUND FOREMAN is Ailyn Cisneros. 01/22/19 20:34 Twelve-lead EKG done at 2023 demonstrates an atrial sensed ventricular paced rh ythm with a heart rate of 109. 01/22/19 22:09
--- NOTE | 2019-01-22 20:32 | XRAY Report ---
Reason: picc line placement Procedure Date: 01/22/2019 Accession Number: [id number] / [id number] Procedure: XR - Chest for Line Placement CPT Code: FULL RESULT: EXAM: CHEST RADIOGRAPHY EXAM DATE: 01/22/2019 08:25 PM. CLINICAL HISTORY: Picc line placement. COMPARISON: CHEST 1 VIEW 12/07/2018 11:02 PM. TECHNIQUE: 1 view. FINDINGS: Lungs/Pleura: No focal opacities evident. No pleural effusion. No pneumothorax. Mediastinum: Right-sided PICC line noted with its tip projected over the SVC. Within exam limitations, the cardiomediastinal contour is normal. Other: None. IMPRESSION: Well-positioned rather PICC line with its tip projected over the SVC. No pneumothorax. RADIA
--- NOTE | 2019-01-22 20:48 | ANESTHESIA PROCEDURE NOTE ---
Anesth Central Line Template - Central Line Central Line Preparation: Consent Obtained, Time out completed, Ultrasound used, Sterile prep and drape Central line type: Double lumen Central line catheter tip site resides: Right basilic Central line aftercare: Secured (Right PICC double lumen placed using US, modified Seldinger technique. Unable to use tip placement system to verify location so a CXR was done and verified by the radiologist to be in the distal SVC. Patient tolerated procedure well. Both ports flush and aspirate.), Placement confirmed, No complications, Bundle checklist complete, Pt tolerated well
[2019-01-22 21:13] VITALS: BP 143/71
[2019-01-22] MEDS ORDERED: D5NS W/20 MEQ KCL 1,000 ML IV SCH (22:00)
== END 2019-01-22 22:00 | disposition short-term general hospital (02) ==
LOC: ED 13:26
DX: E10.10 Type 1 diabetes mellitus with ketoacidosis without coma (principal); E10.42 Type 1 diabetes mellitus with diabetic polyneuropathy; Z79.4 Long term (current) use of insulin; I10 Essential (primary) hypertension; Z95.0 Presence of cardiac pacemaker; Z79.82 Long term (current) use of aspirin
CPT/HCPCS: 36569; 80053; 81001; 82009; 82803; 83605; 83690; 84484; 85025; 93005; 96361; 96374; 99284; C1751; J1815; 71045; 81003; 87086; 99285

== ENCOUNTER 2019-01-22 22:06 | Outpatient (CLI) | payer MEDICARE, MEDICAID | END 2019-01-22 22:07 | disposition short-term general hospital (02) | LOC: EMS 22:06 | PROVIDERS: ATTEND Surgery | DX: E11.10 Type 2 diabetes mellitus with ketoacidosis without coma (principal) | CPT/HCPCS: A0425; A0426 ==

== ENCOUNTER 2019-02-15 22:30 | Outpatient (CLI) | payer MEDICARE, MEDICAID | END 2019-02-15 22:31 | disposition critical access hospital (66) | LOC: EMS 22:30 | PROVIDERS: ATTEND Surgery | DX: R07.9 Chest pain, unspecified (principal); R11.2 Nausea with vomiting, unspecified; R19.7 Diarrhea, unspecified; R30.9 Painful micturition, unspecified | CPT/HCPCS: A0425; A0427 ==

== ENCOUNTER 2019-02-15 22:42 | Emergency (ER) | payer MEDICARE, MEDICAID ==
--- NOTE | 2019-02-15 22:52 | ED Physician Documentation ---
PD HPI NVD - Stated complaint Stated Complaint: N/V, CP - Chief complaint Chief Complaint: General - History obtained from History obtained from: Patient, EMS - History of Present Illness Timing - onset: Today Timing - details: Abrupt onset, Still present Associated symptoms: Chest pain, Other (nausea and vomiting, feeling lightheaded.) Contributing factors: Diabetes. No: Sick contact, Bad food Improved by: No: Vomiting Worsened by: Eating Similar symptoms before: Diagnosis (sometimes DKA, sometimes gastritis. Has had chest pains recurrently. Says she had heart cath about 3 months ago with clear coronary arteries.) Recently seen: Emergency Dept Review of Systems Constitutional: reports: Fatigue. denies: Fever, Myalgias Nose: denies: Rhinorrhea / runny nose, Congestion Throat: denies: Sore throat Cardiac: reports: Chest pain / pressure (anterior). denies: Palpitations, Pedal edema, Calf pain Respiratory: denies: Dyspnea, Cough GI: reports: Nausea, Vomiting. denies: Abdominal Pain, Diarrhea Skin: reports: Rash (under breasts and abd pannus for a week or so.). 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: Endometriosis, Fibroids, Other : None HEENT: None Psych: Depression, Anxiety, Bipolar disorder, Panic attacks, Post traumatic stress disorder, Claustrophobia Musculoskeletal: Gout, Chronic back pain Derm: Other - Past Surgical History Past Surgical History: Yes General: Cholecystectomy, Appendectomy, Hiatal hernia repair, Colonoscopy, EGD /SERVICE ATTENDANT: Oophrectomy, Other Cardiovascular: Pacemaker, Other HEENT: Myringotomy (tubes), Tonsil/Adenoidectomy, Other - Present Medications Home Medications: Ambulatory Orders Medication Instructions Recorded Confirmed Insulin Glargine,Hum.rec.anlog 28 units SUBQ DAILY 09/05/13 09/04/18 [Lantus Solostar] Amitriptyline [Elavil] 50 mg PO QPM 07/03/14 09/04/18 Aspirin [Aspirin EC] 81 mg PO DAILY 10/08/17 09/04/18 Levothyroxine Sodium 250 mcg PO QDAC 10/08/17 09/04/18 Atorvastatin Calcium [Lipitor] 80 mg PO DAILY 01/20/18 09/04/18 Lisinopril [Zestril] 10 mg PO DAILY 01/20/18 09/04/18 Venlafaxine HCl [Venlafaxine HCl 150 mg PO DAILY 01/20/18 09/04/18 ER] Insulin Lispro [Humalog] 2 - 15 unit SUBQ ACHS 04/02/18 09/04/18 Famotidine 20 mg PO BID 09/04/18 09/04/18 Cyclobenzaprine [Flexeril] 10 mg PO TID PRN 10 Days #30 tablet 09/06/18 Dicyclomine [Bentyl] 20 mg PO QID 10 Days #80 capsule 09/06/18 Ezetimibe [Zetia] 10 mg PO DAILY #30 tablet 09/06/18 Gabapentin 200 mg PO TID #60 capsule 09/06/18 HYDROcodone/ACET 10/325 [[place] 10 1 tab PO Q4HR PRN #40 tablet 09/06/18 mg/325 mg] Insulin Glargine [Lantus Solostar] 35 unit SQ QPM #1 pen 09/06/18 LORazepam [Ativan] 1 mg PO BID PRN #60 tablet 09/06/18 Metoprolol Succinate 25 mg PO BID #60 tab.er.24h 09/06/18 Neutra-Phos [K-Phos Neutral] 500 mg PO BIDWM 10 Days #40 tablet 09/06/18 Nitroglycerin [Nitrostat] 0.4 mg SL Q5MIN PRN #15 tablet 09/06/18 Fluconazole [Diflucan] 150 mg PO ONCE #1 tablet 02/16/19 Nystatin Cream [Mycostatin Cream] 1 applic TOP BID #30 g 02/16/19 Ondansetron Odt [Zofran] 4 mg TL Q6H PRN #10 tablet 02/16/19 - Allergies Allergies/Adverse Reactions: Allergies Allergy/AdvReac Type Severity Reaction Status Date / Time sulfamethoxazole Allergy Intermediate rash/ Verified 02/15/19 22:50 [From Bactrim] adhesive Allergy Rash Verified 02/15/19 22:50 amoxicillin [Amoxicillin] Allergy unknown Verified 02/15/19 22:50 oxycodone [Oxycodone] AdvReac Intermediate hallucinate, Verified 02/15/19 22:50 vomit promethazine HCl * AdvReac Mild Nausea Verified 02/15/19 22:50 [From Phenergan] - Social History Does the pt smoke?: No Smoking Status: Never smoker Does the pt drink ETOH?: No Does the pt have substance abuse?: No - Immunizations Immunizations are current?: Yes - POLST Patient has POLST: No POLST Status: Full Code PD ED PE NORMAL - Vitals Vital signs reviewed: Yes - General General: Alert and oriented X 3, Well developed/nourished - HEENT HEENT: Atraumatic, Pharynx benign - Neck Neck: Supple, no meningeal sign, No adenopathy - Cardiac Cardiac: RRR, No murmur - Respiratory Respiratory: Clear bilaterally, Other (some right anterior chest wall tenderness. Pacer pouch left chest without signs of infection. ) - Abdomen Abdomen: Soft, Non tender - Back Back: No CVA TTP - Derm Derm: Normal color, Warm and dry, Other (fold under abd pannus and breasts shows red margined, demarcated, nonvesicular red rash c/w yeast. ) - Extremities Extremities: No tenderness to palpate, No edema, No calf tenderness / cord - Neuro Neuro: Alert and oriented X 3, No motor deficit, Normal speech Results - Vitals Vitals: Vital Signs - 24 hr 02/15/19 02/15/19 02/16/19 22:41 23:24 00:00 Temperature 36.6 C Heart Rate 137 H 125 H 119 H Respiratory 17 16 19 Rate Blood Pressure 185/96 H 150/98 H 159/77 H O2 Saturation 98 99 96 02/16/19 02/16/19 02/16/19 01:07 02:10 02:36 Temperature Heart Rate 114 H 112 H 112 H Respiratory 17 18 17 Rate Blood Pressure 131/59 H 136/66 H 131/69 H O2 Saturation 96 97 96 Oxygen O2 Source Room air - EKG (time done) 22:46 Rate: Rate (enter#) (129) Rhythm: Sinus tachycardia, Paced [place]: Normal Ischemia: Non specific changes - Labs Labs: Laboratory Tests 02/15/19 02/15/19 02/15/19 22:00 23:55 23:55 WBC 7.8 RBC 4.21 Hgb 13.4 Hct 40.9 MCV 97.1 MCH 31.8 H MCHC 32.8 RDW 13.0 Plt Count 313 MPV 9.4 Neut # (Auto) 5.9 Lymph # (Auto) 1.3 L [place] # (Auto) 0.6 Eos # (Auto) 0.1 Baso # (Auto) 0.1 Absolute Nucleated RBC 0.00 Nucleated RBC % 0.0 VBG pH VBG pCO2 VBG pO2 VBG HCO3 VBG Total CO2 VBG O2 Saturation VBG Base Excess Sodium 137 Potassium 3.5 Chloride 101 Carbon Dioxide 20 L Anion Gap 16.0 H BUN 18 Creatinine 1.0 Estimated GFR (MDRD) 61 L Glucose 111 H Calcium 9.1 Magnesium 1.7 Total Bilirubin 1.1 H AST 17 ALT 16 Alkaline Phosphatase 193 H Troponin I Troponin I High Sens B-Natriuretic Peptide Total Protein 7.3 Albumin 2.9 L Globulin 4.4 H Albumin/Globulin Ratio 0.7 L Lipase 20 L Urine Color YELLOW Urine Clarity CLEAR Urine pH 5.0 Ur Specific [place] 1.025 Urine Protein 30 H Urine Glucose (UA) >=1000 H Urine Ketones >=80 H Urine Occult Blood TRACE-LYSE Urine Nitrite NEGATIVE Urine Bilirubin NEGATIVE Urine Urobilinogen 0.2 (NORMAL) Ur Leukocyte Esterase NEGATIVE Urine RBC 0-5 Urine WBC 4-5 Ur Squamous Epith Cells RARE Squamous Urine Bacteria Rare Urine Casts 0-2 Hyaline Casts Ur Microscopic Review INDICATED Urine Culture Comments NOT INDICATED Serum Ketones SMALL H 02/15/19 02/15/19 02/15/19 23:55 23:55 23:55 WBC RBC Hgb Hct MCV MCH MCHC RDW Plt Count MPV Neut # (Auto) Lymph # (Auto) [place] # (Auto) Eos # (Auto) Baso # (Auto) Absolute Nucleated RBC Nucleated RBC % VBG pH 7.421 H VBG pCO2 34.5 L VBG pO2 102.5 H VBG HCO3 21.9 L VBG Total CO2 23.0 L VBG O2 Saturation 98.0 H VBG Base Excess -1.8 Sodium Potassium Chloride Carbon Dioxide Anion Gap BUN Creatinine Estimated GFR (MDRD) Glucose Calcium Magnesium Total Bilirubin AST ALT Alkaline Phosphatase Troponin I < 0.04 Troponin I High Sens B-Natriuretic Peptide 38 Total Protein Albumin Globulin Albumin/Globulin Ratio Lipase Urine Color Urine Clarity Urine pH Ur Specific [place] Urine Protein Urine Glucose (UA) Urine Ketones Urine Occult Blood Urine Nitrite Urine Bilirubin Urine Urobilinogen Ur Leukocyte Esterase Urine RBC Urine WBC Ur Squamous Epith Cells Urine Bacteria Urine Casts Ur Microscopic Review Urine Culture Comments Serum Ketones 02/16/19 02/16/19 00:01 01:55 WBC RBC Hgb Hct MCV MCH MCHC RDW Plt Count MPV Neut # (Auto) Lymph # (Auto) [place] # (Auto) Eos # (Auto) Baso # (Auto) Absolute Nucleated RBC Nucleated RBC % VBG pH VBG pCO2 VBG pO2 VBG HCO3 VBG Total CO2 VBG O2 Saturation VBG Base Excess Sodium Potassium Chloride Carbon Dioxide Anion Gap BUN Creatinine Estimated GFR (MDRD) Glucose Calcium Magnesium Total Bilirubin AST ALT Alkaline Phosphatase Troponin I < 0.04 Troponin I High Sens 18.3 H* 20.7 H* B-Natriuretic Peptide Total Protein Albumin Globulin Albumin/Globulin Ratio Lipase Urine Color Urine Clarity Urine pH Ur Specific [place] Urine Protein Urine Glucose (UA) Urine Ketones Urine Occult Blood Urine Nitrite Urine Bilirubin Urine Urobilinogen Ur Leukocyte Esterase Urine RBC Urine WBC Ur Squamous Epith Cells Urine Bacteria Urine Casts Ur Microscopic Review Urine Culture Comments Serum Ketones - Rads (name of study) chest xray Radiology: Prelim report reviewed (negative), See rad report PD MEDICAL DECISION MAKING - ED course Complexity details: reviewed old records, reviewed results (The regular troponin is negative. She has had a recent heart cath which showed clear vessels. High- sensitivity troponin was minimally elevated in the 2-hour delta showed only about a 10% change which combined with a low pretest probability is a negative test.), re-evaluated patient (Feeling improved after IV fluids and antiemetics and pain medicines. She will be discharged home.), considered differential, d/w patient Departure - Departure Disposition: Home, Self Care Clinical Impression: Yeast infection of the skin Chest pain Qualifiers: Chest pain type: precordial pain Qualified Code(s): R07.2 - Precordial pain Nausea and vomiting Qualifiers: Vomiting type: unspecified Vomiting Intractability: non-intractable Qualified C ode(s): R11.2 - Nausea with vomiting, unspecified Diabetes Qualifiers: Diabetes mellitus type: type 1 Diabetes mellitus complication status: without complication Qualified Code(s): E10.9 - Type 1 diabetes mellitus without complications Clinical Impression: (Ruled Out): CHF (congestive heart failure), DKA, type 1 Condition: Stable Record reviewed to determine appropriate education?: Yes Follow-Up: Amisha Staton DO [Primary Care Provider] - Prescriptions: Fluconazole [Diflucan] 150 mg PO ONCE #1 tablet Nystatin Cream [Mycostatin Cream] 1 applic TOP BID #30 g Ondansetron Odt [Zofran] 4 mg TL Q6H PRN #10 tablet PRN Reason: Nausea / Vomiting Comments: Ondansetron if needed for nausea. Continue your other usual medications. There is no signs of heart failure nor heart attack on your x-ray or blood tests. Presume its musculoskeletal chest pain. He can use some Tylenol if needed every 4 hours. Follow-up with your primary care. For the yeast skin rash under the breasts and under the abdominal pannus, clean with soap and water twice daily and apply a light bit of nystatin cream to the areas. Take the oral Diflucan in 3 or 4 days as a repeat dosing of the one today. Recheck if does not improved over the next week or so.
[2019-02-15] MEDS ORDERED: SODIUM CHLORIDE 0.9% 1,000 ML IV ONE (22:58)
[2019-02-15] MEDS ORDERED: ONDANSETRON 4 MG/2 ML VIAL IVP STA (22:58)
[2019-02-15] MEDS ORDERED: HYDROmorphone 1 MG/ML CARPUJECT IVP STA (23:00)
[2019-02-15] MEDS ORDERED: FAMOTIDINE 20 MG/2 ML VIAL IVP STA (23:01)
--- NOTE | 2019-02-15 23:32 | XRAY Report ---
Reason: chest pain Procedure Date: 02/15/2019 Accession Number: [id number] / [id number] Procedure: XR - Chest 1 View X-Ray CPT Code: 73728 FULL RESULT: EXAM: CHEST RADIOGRAPHY EXAM DATE: 02/15/2019 11:15 PM. CLINICAL HISTORY: Chest pain. COMPARISON: CHEST FOR LINE PLACEMENT 01/22/2019 8:11 PM. TECHNIQUE: 1 view. FINDINGS: Lungs/Pleura: No focal opacities evident. No pleural effusion. No pneumothorax. Mediastinum: Within exam limitations, the cardiomediastinal contour is normal. Other: Stable left subclavian pacemaker and epicardial pacing wires IMPRESSION: No evidence of acute cardiopulmonary disease. No significant interval change. RADIA
[2019-02-16 00:13] LABS: VBG BASE EXCESS -1.8 mmol/L (-2 - +2); VBG PCO2 34.5 mmHg (41-51); VBG PH 7.421 (7.31-7.41); VBG PO2 102.5 mmHg (25-47)
[2019-02-16 00:16] LABS: KETONES, SERUM (ACETEST) SMALL (NEGATIVE)
[2019-02-16] MEDS ORDERED: SODIUM CHLORIDE 0.9% 1,000 ML IV ONE (00:17)
[2019-02-16 00:21] LABS: BASOPHILS # (AUTO) 0.1 10^3/uL (0.0-0.1); BASOPHILS % (AUTO) 0.6 %; EOSINOPHILS # (AUTO) 0.1 10^3/uL (0.0-0.7); EOSINOPHILS % (AUTO) 0.6 %; HGB - HEMOGLOBIN 13.4 g/dL (12.0-16.0); LYMPHOCYTES # (AUTO) 1.3 10^3/uL (1.5-3.5); LYMPHOCYTES % (AUTO) 16.5 %; MEAN CORPUSCULAR HEMOGLOBIN 31.8 pg (27.0-31.0); MEAN CORPUSCULAR HGB CONC 32.8 g/dL (32.0-36.0); MEAN CORPUSCULAR VOLUME 97.1 fL (81.0-99.0); MEAN PLATELET VOLUME 9.4 fL (7.9-10.8); MONOCYTES # (AUTO) 0.6 10^3/uL (0.0-1.0); MONOCYTES % (AUTO) 7.1 %; NEUTROPHILS # (AUTO) 5.9 10^3/uL (1.5-6.6); NEUTROPHILS % (AUTO) 74.7 %; PLT - PLATELET COUNT 313 10^3/uL (130-450); RED BLOOD COUNT 4.21 10^6/uL (4.20-5.40); WHITE BLOOD COUNT 7.8 x10^3/uL (4.8-10.8)
[2019-02-16 00:22] LABS: SODIUM 137 mmol/L (135-145)
[2019-02-16 00:23] LABS: ALBUMIN 2.9 g/dL (3.2-5.5); ALBUMIN/GLOBULIN RATIO 0.7 (1.0-2.2); ALKALINE PHOSPHATASE 193 IU/L (42-121); ALT ALANINE AMINOTRANSFERASE 16 IU/L (10-60); AST ASPARTATE AMINOTRANSFERASE 17 IU/L (10-42); BILIRUBIN,TOTAL 1.1 mg/dL (0.2-1.0); BUN - BLOOD UREA NITROGEN 18 mg/dL (6-20); CALCIUM 9.1 mg/dL (8.5-10.3); CARBON DIOXIDE - CO2 20 mmol/L (21-32); CHLORIDE 101 mmol/L (101-111); GFR - MDRD 61 (>89); GLUCOSE 111 mg/dL (70-100); LIPASE 20 U/L (22-51); MAGNESIUM 1.7 mg/dL (1.7-2.8); TOTAL PROTEIN 7.3 g/dL (6.7-8.2)
[2019-02-16 00:28] LABS: GLUCOSE, URINE (UA) >=1000 mg/dL (NEGATIVE); KETONES,URINE (UA) >=80 mg/dL (NEGATIVE); LEUKOCYTE ESTERASE, URINE NEGATIVE (NEGATIVE); NITRITE,URINE NEGATIVE (NEGATIVE); OCCULT BLOOD,URINE TRACE-LYSE (NEGATIVE); PROTEIN,URINE 30 mg/dL (NEGATIVE); UROBILINOGEN,URINE 0.2 (NORMAL) E.U./dL (NORMAL)
[2019-02-16] MEDS ORDERED: HYDROmorphone 2 MG/ML VIAL IVP STA (00:29)
[2019-02-16] MEDS ORDERED: KETOROLAC 15 MG/ML VIAL IVP STA (00:30)
[2019-02-16 00:34] LABS: CLARITY,URINE CLEAR (CLEAR)
[2019-02-16 00:38] LABS: BILIRUBIN,URINE NEGATIVE (NEGATIVE); ICTOTEST,URINE NEGATIVE
[2019-02-16 00:44] LABS: BACTERIA,URINE Rare /HPF (None Seen); CASTS, URINE 0-2 Hyaline Casts /LPF; RBC,URINE 0-5 /HPF (0-5); SQUAMOUS EPITHELIAL CELL,UR RARE Squamous (<= Few)
[2019-02-16 02:25] LABS: TROPONIN I < 0.04 ng/mL (<0.49)
[2019-02-16 02:37] VITALS: BP 131/69
[2019-02-16] MEDS ORDERED: HYDROcod/ACET 5/325 Prepack 4 PO STA (02:42)
[2019-02-16] MEDS ORDERED: ONDANSETRON ODT 4 MG Prepack 2 TL PRN (02:42)
[2019-02-16] MEDS ORDERED: FLUCONAZOLE 100 MG TABLET PO STA (02:44)
== END 2019-02-16 03:02 | disposition home or self-care (01) ==
LOC: EDUNIT# → ED 22:42
DX: B37.2 Candidiasis of skin and nail (principal); R07.2 Precordial pain; R11.2 Nausea with vomiting, unspecified; I10 Essential (primary) hypertension; E10.9 Type 1 diabetes mellitus without complications
CPT/HCPCS: 36415; 71045; 80053; 81001; 82009; 82803; 83690; 83735; 83880; 84484; 85025; 93005; 96361; 96374; 96375; 96376; 99284; A9270; J1170; 81003; 87086

== ENCOUNTER 2019-02-17 07:21 | Outpatient (CLI) | payer MEDICARE, MEDICAID | END 2019-02-17 07:22 | disposition critical access hospital (66) | LOC: EMS 07:21 | PROVIDERS: ATTEND Surgery | DX: R73.09 Other abnormal glucose (principal); R11.2 Nausea with vomiting, unspecified; R19.7 Diarrhea, unspecified; R53.1 Weakness | CPT/HCPCS: A0425; A0429 ==

== ENCOUNTER 2019-02-17 07:33 | Inpatient (IN) | payer MEDICARE, MEDICAID ==
[2019-02-17] MEDS ORDERED: SODIUM CHLORIDE 0.9% 1,000 ML IV ONE ×2 (07:46→10:58)
[2019-02-17] MEDS ORDERED: ONDANSETRON 4 MG/2 ML VIAL IVP STA (07:57)
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
[2019-02-17 08:05] LABS: BASOPHILS # (AUTO) 0.1 10^3/uL (0.0-0.1); BASOPHILS % (AUTO) 0.6 %; EOSINOPHILS # (AUTO) 0.1 10^3/uL (0.0-0.7); EOSINOPHILS % (AUTO) 0.4 %; HGB - HEMOGLOBIN 14.3 g/dL (12.0-16.0); LYMPHOCYTES # (AUTO) 1.2 10^3/uL (1.5-3.5); LYMPHOCYTES % (AUTO) 9.3 %; MEAN CORPUSCULAR HEMOGLOBIN 33.3 pg (27.0-31.0); MEAN CORPUSCULAR HGB CONC 32.4 g/dL (32.0-36.0); MEAN PLATELET VOLUME 9.9 fL (7.9-10.8); MONOCYTES # (AUTO) 0.6 10^3/uL (0.0-1.0); MONOCYTES % (AUTO) 4.5 %; NEUTROPHILS # (AUTO) 10.7 10^3/uL (1.5-6.6); NEUTROPHILS % (AUTO) 84.4 %; PLT - PLATELET COUNT 338 10^3/uL (130-450); RED BLOOD COUNT 4.29 10^6/uL (4.20-5.40); RED CELL DISTRIBUTION WIDTH 13.3 % (12.0-15.0); WHITE BLOOD COUNT 12.6 x10^3/uL (4.8-10.8)
[2019-02-17 08:08] LABS: VBG BASE EXCESS -18.6 mmol/L (-2 - +2); VBG PCO2 21.4 mmHg (41-51); VBG PH 7.177 (7.31-7.41); VBG PO2 39.7 mmHg (25-47); VBG TOTAL CO2 8.4 mmol/L (24-29)
[2019-02-17 08:16] LABS: CHLORIDE 93 mmol/L (101-111); SODIUM 135 mmol/L (135-145)
[2019-02-17 08:17] LABS: BUN - BLOOD UREA NITROGEN 19 mg/dL (6-20); CALCIUM 9.2 mg/dL (8.5-10.3); CREATININE 4.1 mg/dL (0.4-1.0); GFR - MDRD 12 (>89); KETONES, SERUM (ACETEST) MODERATE (NEGATIVE)
[2019-02-17 08:18] LABS: CARBON DIOXIDE - CO2 6 mmol/L (21-32); GLUCOSE 737 mg/dL (70-100)
[2019-02-17] MEDS ORDERED: LACTATED RINGERS 1,000 ML IV STA (08:19)
[2019-02-17 08:27] LABS: TROPONIN I < 0.04 ng/mL (<0.49)
[2019-02-17] MEDS ORDERED: ASPIRIN CHEW 81 MG TABLET PO STA (08:34)
[2019-02-17] MEDS ORDERED: INSULIN REGULAR HUMAN 100 UNIT in SODIUM CHLORIDE 0.9% 100ML 99 ML IV STA (08:34)
[2019-02-17] MEDS ORDERED: ACETAMINOPHEN 325 MG TABLET PO PRN (08:56)
[2019-02-17] MEDS ORDERED: oxyCODONE 5 MG TABLET PO PRN (08:56)
[2019-02-17] MEDS ORDERED: SODIUM CHLORIDE FLUSH 0.9% 10 ML SYRINGE IVP PRN (08:56)
[2019-02-17 08:59] LABS: BILIRUBIN,URINE NEGATIVE (NEGATIVE); GLUCOSE, URINE (UA) 500 mg/dL (NEGATIVE); KETONES,URINE (UA) >=80 mg/dL (NEGATIVE); LEUKOCYTE ESTERASE, URINE NEGATIVE (NEGATIVE); NITRITE,URINE NEGATIVE (NEGATIVE); OCCULT BLOOD,URINE LARGE (NEGATIVE); PROTEIN,URINE TRACE mg/dL (NEGATIVE); UROBILINOGEN,URINE 0.2 (NORMAL) E.U./dL (NORMAL)
[2019-02-17 09:00] LABS: CLARITY,URINE SL. CLOUDY (CLEAR)
[2019-02-17 09:12] LABS: BACTERIA,URINE Few /HPF (None Seen); SQUAMOUS EPITHELIAL CELL,UR RARE Squamous (<= Few)
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
[2019-02-17] MEDS: INSULIN REGULAR HUMAN 100 UNIT in SODIUM CHLORIDE 0.9% 100ML 99 ML IV SCH (09:28)
[2019-02-17] MEDS ORDERED: ACETAMINOPHEN 1,000 MG/100 ML 100 ML IV STA (09:30)
[2019-02-17 10:19] LABS: HB2 TOTAL 15.6 g/dL; HEMOGLOBIN A1C 1.72 g/dL; HEMOGLOBIN A1C % 12.2 % (4.6-6.2)
[2019-02-17] MEDS: SODIUM CHLORIDE FLUSH 0.9% 10 ML SYRINGE IVP SCH ×2 (10:29→16:46)
[2019-02-17] MEDS: HYDROcod/ACETAM 5/325 MG TABLET PO PRN ×4 (10:39→21:58)
[2019-02-17] MEDS: NYSTATIN CREAM 15 GM TUBE TOP SCH ×2 (11:03→21:22)
[2019-02-17 11:10] LABS: HCG UR QUAL NEGATIVE
[2019-02-17 11:22] LABS: CHLORIDE 101 mmol/L (101-111); SODIUM 140 mmol/L (135-145)
[2019-02-17 11:23] LABS: BUN - BLOOD UREA NITROGEN 19 mg/dL (6-20); CALCIUM 9.2 mg/dL (8.5-10.3); CREATININE 1.4 mg/dL (0.4-1.0); GFR - MDRD 42 (>89); MAGNESIUM 2.4 mg/dL (1.7-2.8)
[2019-02-17 11:24] LABS: CARBON DIOXIDE - CO2 < 6 mmol/L (21-32)
[2019-02-17 11:25] LABS: GLUCOSE 717 mg/dL (70-100)
[2019-02-17 11:26] LABS: TROPONIN I < 0.04 ng/mL (<0.49)
[2019-02-17] MEDS ORDERED: LORazepam 2 MG/ML VIAL IVP PRN (12:09)
[2019-02-17 12:26] LABS: MUDS CUTOFF CONCENTRATIONS CUTOFF CONC BELOW:
[2019-02-17 12:39] LABS: AMPHETAMINE SCREEN,URINE NEGATIVE (NEGATIVE); BENZODIAZEPINES SCREEN, URINE NEGATIVE (NEGATIVE); COCAINE SCREEN URINE NEGATIVE (NEGATIVE); METHAMPHETAMINES SCREEN, URINE NEGATIVE (NEGATIVE); OPIATE SCREEN, URINE NEGATIVE (NEGATIVE)
[2019-02-17 12:40] LABS: METHADONE SCREEN, URINE NEGATIVE (NEGATIVE); OXYCODONE SCREEN, URINE NEGATIVE (NEGATIVE); PROPOXYPHENE SCREEN, URINE NEGATIVE (NEGATIVE); TRICYCLIC ANTIDEPRESSANT,URINE NEGATIVE (NEGATIVE)
[2019-02-17 12:56] LABS: BUN - BLOOD UREA NITROGEN 19 mg/dL (6-20); CHLORIDE 107 mmol/L (101-111); CREATININE 1.5 mg/dL (0.4-1.0); GFR - MDRD 38 (>89); MAGNESIUM 2.3 mg/dL (1.7-2.8); SODIUM 143 mmol/L (135-145)
[2019-02-17 12:57] LABS: CARBON DIOXIDE - CO2 < 6 mmol/L (21-32); GLUCOSE 525 mg/dL (70-100)
[2019-02-17] MEDS: DICYCLOMINE 10 MG CAPSULE PO SCH ×3 (13:29→21:19)
[2019-02-17] MEDS: METOPROLOL SUCCINATE 25 MG TABLET PO SCH ×2 (13:29→21:20)
[2019-02-17] MEDS: GABAPENTIN 100 MG CAPSULE PO SCH ×2 (13:30→21:19)
[2019-02-17] MEDS ORDERED: SODIUM CHLORIDE 0.9% 1,000 ML IV SCH (18:00)
[2019-02-17 21:17] LABS: BUN - BLOOD UREA NITROGEN 18 mg/dL (6-20); CARBON DIOXIDE - CO2 14 mmol/L (21-32); CHLORIDE 109 mmol/L (101-111); GFR - MDRD 61 (>89); SODIUM 140 mmol/L (135-145)
[2019-02-17 21:18] LABS: CALCIUM 7.9 mg/dL (8.5-10.3); GLUCOSE 230 mg/dL (70-100)
[2019-02-17] MEDS: AMITRIPTYLINE 25 MG TABLET PO SCH (21:20)
[2019-02-17 21:23] LABS: VBG PH 7.369 (7.31-7.41)
[2019-02-17 21:24] LABS: TROPONIN I 0.04 ng/mL (<0.49)
[2019-02-17] MEDS ORDERED: NS W/20 MEQ KCL 1,000 ML IV SCH (22:00)
[2019-02-18] MEDS: INSULIN REGULAR HUMAN 100 UNIT in SODIUM CHLORIDE 0.9% 100ML 99 ML IV SCH ×2 (00:19→09:18)
[2019-02-18] MEDS: SODIUM CHLORIDE FLUSH 0.9% 10 ML SYRINGE IVP SCH ×3 (00:35→17:17)
[2019-02-18] MEDS ORDERED: D5.45NS W/20 MEQ KCL 1,000 ML IV SCH (01:00)
[2019-02-18] MEDS: HYDROcod/ACETAM 5/325 MG TABLET PO PRN ×4 (02:20→21:08)
[2019-02-18 02:26] LABS: BASOPHILS % (AUTO) 0.2 %; EOSINOPHILS % (AUTO) 0.2 %; HGB - HEMOGLOBIN 11.5 g/dL (12.0-16.0); LYMPHOCYTES % (AUTO) 9.1 %; MEAN CORPUSCULAR HEMOGLOBIN 31.7 pg (27.0-31.0); MEAN CORPUSCULAR HGB CONC 31.9 g/dL (32.0-36.0); MEAN CORPUSCULAR VOLUME 99.2 fL (81.0-99.0); MEAN PLATELET VOLUME 9.3 fL (7.9-10.8); MONOCYTES % (AUTO) 9.5 %; NEUTROPHILS # (AUTO) 8.5 10^3/uL (1.5-6.6); NEUTROPHILS % (AUTO) 80.5 %; PLT - PLATELET COUNT 222 10^3/uL (130-450); RED BLOOD COUNT 3.63 10^6/uL (4.20-5.40); RED CELL DISTRIBUTION WIDTH 13.4 % (12.0-15.0); VBG BASE EXCESS -9.8 mmol/L (-2 - +2); VBG PCO2 28.9 mmHg (41-51); VBG PH 7.326 (7.31-7.41); VBG PO2 170.5 mmHg (25-47); VBG TOTAL CO2 15.6 mmol/L (24-29); WHITE BLOOD COUNT 10.5 x10^3/uL (4.8-10.8)
[2019-02-18 02:38] LABS: CALCIUM 7.4 mg/dL (8.5-10.3); CREATININE 1.1 mg/dL (0.4-1.0); PHOSPHORUS 2.2 mg/dL (2.5-4.6)
[2019-02-18 02:47] LABS: TROPONIN I < 0.04 ng/mL (<0.49)
[2019-02-18 03:27] LABS: ALBUMIN 2.5 g/dL (3.2-5.5); MAGNESIUM 1.8 mg/dL (1.7-2.8)
[2019-02-18] MEDS: NEUTRA-PHOS 250 MG TABLET PO SCH ×2 (03:37→08:00)
[2019-02-18] MEDS: NS W/20 MEQ KCL 1,000 ML IV SCH ×2 (03:37→17:23)
[2019-02-18] MEDS: D5.45NS W/20 MEQ KCL 1,000 ML IV SCH (05:18)
[2019-02-18] MEDS: LEVOTHYROXINE 25 MCG TABLET PO SCH (06:43)
[2019-02-18] MEDS: LEVOTHYROXINE 125 MCG TABLET PO SCH (06:43)
[2019-02-18] MEDS: GABAPENTIN 100 MG CAPSULE PO SCH ×3 (06:44→22:17)
--- NOTE | 2019-02-18 07:41 | PROVIDER PROGRESS NOTE ---
Subjective - Prog Note Date Prog Note Date: 02/18/19 Prog Note Time: 14:00 - Subjective Pt reports feeling: Improved Subjective: still w mild abd pain, hydration better but still tachy to 110's. She was 140's yesterday. Current Medications - Current Medications Current Medications: Active Medications Generic Name Dose Route Start Last Admin Trade Name Freq PRN Reason Stop Dose Admin Acetaminophen 650 mg 02/17/19 08:56 Tylenol PO Q4HR PRN Pain 1 to 4 Hydrocodone Bitart/Acetaminophen 2 tab 02/17/19 10:18 02/18/19 02:20 Dike 5/325 PO 1 tab Q4HR PRN Administration PAIN Amitriptyline HCl 50 mg 02/17/19 21:00 02/17/19 21:20 Elavil PO 50 mg QPM ADALBERTO Administration Dicyclomine HCl 20 mg 02/17/19 13:00 02/17/19 21:19 Bentyl PO 20 mg QID ADALBERTO Administration Gabapentin 200 mg 02/17/19 14:00 02/18/19 06:44 Neurontin PO 200 mg TID ADALBERTO Administration Insulin Human Regular 100 unit 100 mls @ 10 mls/hr 02/17/19 09:00 02/18/19 06:14 / Sodium Chloride IV 0.01 unit/kg/hr .Q10H ADALBERTO 1 mls/hr Titration Protocol 10 UNIT/HR Potassium Chloride/Sodium Chloride 1,000 mls @ 75 mls/hr 02/18/19 04:00 02/18/19 06:14 Normal Saline 0.9% W/20 Meq Kcl IV 75 mls/hr .[id number] ADALBERTO Infusion Potassium Chloride/Dextrose/Sod Cl 1,000 mls @ 50 mls/hr 02/18/19 06:00 02/18/19 06:14 D5.45ns W/20 Meq Kcl IV 0 mls/hr .Q20H ADALBERTO Infusion Levothyroxine Sodium 250 mcg 02/18/19 07:00 02/18/19 06:43 Synthroid PO 250 mcg QDAC ADALBERTO Administration Levothyroxine Sodium 25 mcg 02/18/19 07:00 02/18/19 06:43 Synthroid PO 25 mcg QDAC ADALBERTO Administration Lisinopril 10 mg 02/18/19 09:00 Zestril PO DAILY ADALBERTO Lorazepam 0.5 mg 02/17/19 12:09 Ativan Inj (Vial) IVP Q2H PRN Anxiety Metoprolol Succinate 25 mg 02/17/19 13:00 02/17/19 21:20 Toprol Xl PO 25 mg BID ADALBERTO Administration Nystatin 1 applic 02/17/19 11:00 02/17/19 21:22 Mycostatin Cream TOP 1 applic BID ADALBERTO Administration Sodium Chloride 10 ml 02/17/19 09:00 02/18/19 00:35 Normal Saline Flush 0.9% IVP 10 ml [id number],[id number],1700 ADALBERTO Administration Sodium Chloride 10 ml 02/17/19 08:56 Normal Saline Flush 0.9% IVP PRN PRN NEEDED PER PROVIDER ORDERS Tramadol HCl 50 mg 02/18/19 06:17 Ultram PO Q6HR PRN PAIN Venlafaxine HCl 150 mg 02/18/19 09:00 Effexor Er PO DAILY [facility] Insulin Glargine,Hum.rec.anlog [Lantus Solostar] 28 units SUBQ DAILY 09/05/13 Amitriptyline [Elavil] 50 mg PO QPM 07/03/14 Aspirin [Aspirin EC] 81 mg PO DAILY 10/08/17 Levothyroxine Sodium 275 mcg PO QDAC 10/08/17 Atorvastatin Calcium [Lipitor] 80 mg PO DAILY 01/20/18 Lisinopril [Zestril] 10 mg PO DAILY 01/20/18 Venlafaxine HCl [Venlafaxine HCl ER] 150 mg PO DAILY 01/20/18 Insulin Lispro [Humalog] 2 - 15 unit SUBQ ACHS 04/02/18 Famotidine 20 mg PO BID 09/04/18 Objective - Vital Signs/Intake & Output Reviewed Vital Signs: Yes Vital Signs: Vital Signs x48h Temp Pulse Resp BP Pulse Ox 02/18/19 07:00 108 H 21 141/77 H 02/18/19 06:06 117 H 126/68 02/18/19 05:00 118 H 15 143/85 H 02/18/19 04:00 116 H 15 129/74 02/18/19 03:00 36.4 C L 108 H 16 137/68 H 98 02/18/19 02:00 110 H 14 130/69 99 02/18/19 01:00 114 H 127/65 02/18/19 00:00 111 H 14 123/74 02/17/19 23:51 36.6 C Intake & Output: Intake & Output 02/15/19 02/16/19 02/17/19 02/18/19 23:59 23:59 23:59 23:59 Intake Total 3617.257 1255.583 Output Total 1150 0 Balance 2467.257 1255.583 - Objective General Appearance: positive: No acute distress, Alert Eyes Bilateral: positive: PERRL ENT: positive: Dry mucous membranes Neck: positive: No JVD. negative: Stiff neck, Carotid bruit Respiratory: positive: Chest non-tender, Other (still w fast breath rate). negative: Wheezes, Rales, Rhonchi Cardiovascular: positive: Regular rate & rhythm, Tachycardia (all spiked w pacer spikes). negative: Gallop/S4, Friction rub Abdomen: positive: No organomegaly, Nml bowel sounds, No distention, Tenderness (generalized and diffuse but not severe). negative: Guarding, Rebound Skin: positive: Warm, Dry, Other (js under breast, panus) Extremities: positive: Full ROM, No pedal edema Neurologic/Psychiatric: positive: Oriented x3, CN's nml (2-12), Motor nml, Sensation nml - Lab Results Fish Bones: 02/18/19 02:15 02/18/19 02:15 Other Labs: Lab Results x24hrs 02/18/19 02/18/19 02/18/19 Range/Units 02:15 02:15 02:15 WBC (4.8-10.8) x10^3/uL RBC (4.20-5.40) 10^6/uL Hgb (12.0-16.0) g/dL Hct (37.0-47.0) % MCV (81.0-99.0) fL MCH (27.0-31.0) pg MCHC (32.0-36.0) g/dL RDW (12.0-15.0) % Plt Count (130-450) 10^3/uL MPV (7.9-10.8) fL Neut # (Auto) (1.5-6.6) 10^3/uL Lymph # (Auto) (1.5-3.5) 10^3/uL [place] # (Auto) (0.0-1.0) 10^3/uL Eos # (Auto) (0.0-0.7) 10^3/uL Baso # (Auto) (0.0-0.1) 10^3/uL Absolute Nucleated RBC x10^3/uL Nucleated RBC % /100WBC VBG pH 7.326 (7.31-7.41) VBG pCO2 28.9 L (41-51) mmHg VBG pO2 170.5 H (25-47) mmHg VBG HCO3 14.8 L (23-28) mmol/L VBG Total CO2 15.6 L (24-29) mmol/L VBG O2 Saturation 99.1 H (60-80) % VBG Base Excess -9.8 L (-2 - +2) mmol/L Ionized Calcium (1.15-1.33) mmol/L Sodium 138 (135-145) mmol/L Potassium 4.2 (3.5-5.0) mmol/L Chloride 108 (101-111) mmol/L Carbon Dioxide 14 L (21-32) mmol/L Anion Gap 16.0 H (6-13) BUN 19 (6-20) mg/dL Creatinine 1.1 H (0.4-1.0) mg/dL Estimated GFR (MDRD) 55 L (>89) Glucose 325 H (70-100) mg/dL Glycated Hemoglobin (4.6-6.2) % Estim Average Glucose (70-100) Calcium 7.4 L (8.5-10.3) mg/dL Phosphorus 2.2 L (2.5-4.6) mg/dL Magnesium 1.8 (1.7-2.8) mg/dL Troponin I (<0.49) ng/mL Troponin I High Sens (2.3-14.8) pg/mL Albumin 2.5 L (3.2-5.5) g/dL Urine Color Urine Clarity (CLEAR) Urine pH (5.0-7.5) PH Ur Specific [place] (1.002-1.030) Urine Protein (NEGATIVE) mg/dL Urine Glucose (UA) (NEGATIVE) mg/dL Urine Ketones (NEGATIVE) mg/dL Urine Occult Blood (NEGATIVE) Urine Nitrite (NEGATIVE) Urine Bilirubin (NEGATIVE) Urine Urobilinogen (NORMAL) E.U./dL Ur Leukocyte Esterase (NEGATIVE) Urine RBC (0-5) /HPF Urine WBC (0-5) /HPF Ur Squamous Epith Cells (<= Few) Urine Bacteria (None Seen) /HPF Ur Microscopic Review Urine Culture Comments Urine HCG, Qual Nasal Screen MRSA (PCR) (NEGATIVE) Urine Opiates Screen (NEGATIVE) Ur Oxycodone Screen (NEGATIVE) Urine Methadone Screen (NEGATIVE) Ur Propoxyphene Screen (NEGATIVE) Ur Barbiturates Screen (NEGATIVE) Ur Tricyclics Screen (NEGATIVE) Ur Phencyclidine Scrn (NEGATIVE) Ur Amphetamine Screen (NEGATIVE) U Methamphetamines Scrn (NEGATIVE) U Benzodiazepines Scrn (NEGATIVE) Urine Cocaine Screen (NEGATIVE) U Cannabinoids Screen (NEGATIVE) Serum Ketones (NEGATIVE) 02/18/19 02/18/19 02/17/19 Range/Units 02:15 02:15 20:32 WBC 10.5 (4.8-10.8) x10^3/uL RBC 3.63 L (4.20-5.40) 10^6/uL Hgb 11.5 L (12.0-16.0) g/dL Hct 36.0 L (37.0-47.0) % MCV 99.2 H (81.0-99.0) fL MCH 31.7 H (27.0-31.0) pg MCHC 31.9 L (32.0-36.0) g/dL RDW 13.4 (12.0-15.0) % Plt Count 222 (130-450) 10^3/uL MPV 9.3 (7.9-10.8) fL Neut # (Auto) 8.5 H (1.5-6.6) 10^3/uL Lymph # (Auto) 1.0 L (1.5-3.5) 10^3/uL [place] # (Auto) 1.0 (0.0-1.0) 10^3/uL Eos # (Auto) 0.0 (0.0-0.7) 10^3/uL Baso # (Auto) 0.0 (0.0-0.1) 10^3/uL Absolute Nucleated RBC 0.00 x10^3/uL Nucleated RBC % 0.0 /100WBC VBG pH 7.369 (7.31-7.41) VBG pCO2 (41-51) mmHg VBG pO2 (25-47) mmHg VBG HCO3 (23-28) mmol/L VBG Total CO2 (24-29) mmol/L VBG O2 Saturation (60-80) % VBG Base Excess (-2 - +2) mmol/L Ionized Calcium 1.02 L (1.15-1.33) mmol/L Sodium (135-145) mmol/L Potassium (3.5-5.0) mmol/L Chloride (101-111) mmol/L Carbon Dioxide (21-32) mmol/L Anion Gap (6-13) BUN (6-20) mg/dL Creatinine (0.4-1.0) mg/dL Estimated GFR (MDRD) (>89) Glucose (70-100) mg/dL Glycated Hemoglobin (4.6-6.2) % Estim Average Glucose (70-100) Calcium (8.5-10.3) mg/dL Phosphorus (2.5-4.6) mg/dL Magnesium (1.7-2.8) mg/dL Troponin I < 0.04 (<0.49) ng/mL Troponin I High Sens 49.3 H* (2.3-14.8) pg/mL Albumin (3.2-5.5) g/dL Urine Color Urine Clarity (CLEAR) Urine pH (5.0-7.5) PH Ur Specific [place] (1.002-1.030) Urine Protein (NEGATIVE) mg/dL Urine Glucose (UA) (NEGATIVE) mg/dL Urine Ketones (NEGATIVE) mg/dL Urine Occult Blood (NEGATIVE) Urine Nitrite (NEGATIVE) Urine Bilirubin (NEGATIVE) Urine Urobilinogen (NORMAL) E.U./dL Ur Leukocyte Esterase (NEGATIVE) Urine RBC (0-5) /HPF Urine WBC (0-5) /HPF Ur Squamous Epith Cells (<= Few) Urine Bacteria (None Seen) /HPF Ur Microscopic Review Urine Culture Comments Urine HCG, Qual Nasal Screen MRSA (PCR) (NEGATIVE) Urine Opiates Screen (NEGATIVE) Ur Oxycodone Screen (NEGATIVE) Urine Methadone Screen (NEGATIVE) Ur Propoxyphene Screen (NEGATIVE) Ur Barbiturates Screen (NEGATIVE) Ur Tricyclics Screen (NEGATIVE) Ur Phencyclidine Scrn (NEGATIVE) Ur Amphetamine Screen (NEGATIVE) U Methamphetamines Scrn (NEGATIVE) U Benzodiazepines Scrn (NEGATIVE) Urine Cocaine Screen (NEGATIVE) U Cannabinoids Screen (NEGATIVE) Serum Ketones (NEGATIVE) 02/17/19 02/17/19 02/17/19 Range/Units 20:32 20:32 13:09 WBC (4.8-10.8) x10^3/uL RBC (4.20-5.40) 10^6/uL Hgb (12.0-16.0) g/dL Hct (37.0-47.0) % MCV (81.0-99.0) fL MCH (27.0-31.0) pg MCHC (32.0-36.0) g/dL RDW (12.0-15.0) % Plt Count (130-450) 10^3/uL MPV (7.9-10.8) fL Neut # (Auto) (1.5-6.6) 10^3/uL Lymph # (Auto) (1.5-3.5) 10^3/uL [place] # (Auto) (0.0-1.0) 10^3/uL Eos # (Auto) (0.0-0.7) 10^3/uL Baso # (Auto) (0.0-0.1) 10^3/uL Absolute Nucleated RBC x10^3/uL Nucleated RBC % /100WBC VBG pH (7.31-7.41) VBG pCO2 (41-51) mmHg VBG pO2 (25-47) mmHg VBG HCO3 (23-28) mmol/L VBG Total CO2 (24-29) mmol/L VBG O2 Saturation (60-80) % VBG Base Excess (-2 - +2) mmol/L Ionized Calcium YES (1.15-1.33) mmol/L Sodium 140 (135-145) mmol/L Potassium 4.2 (3.5-5.0) mmol/L Chloride 109 (101-111) mmol/L Carbon Dioxide 14 L (21-32) mmol/L Anion Gap 17.0 H (6-13) BUN 18 (6-20) mg/dL Creatinine 1.0 (0.4-1.0) mg/dL Estimated GFR (MDRD) 61 L (>89) Glucose 230 H 377 H (70-100) mg/dL Glycated Hemoglobin (4.6-6.2) % Estim Average Glucose (70-100) Calcium 7.9 L (8.5-10.3) mg/dL Phosphorus (2.5-4.6) mg/dL Magnesium (1.7-2.8) mg/dL Troponin I 0.04 (<0.49) ng/mL Troponin I High Sens 58.1 H* (2.3-14.8) pg/mL Albumin (3.2-5.5) g/dL Urine Color Urine Clarity (CLEAR) Urine pH (5.0-7.5) PH Ur Specific [place] (1.002-1.030) Urine Protein (NEGATIVE) mg/dL Urine Glucose (UA) (NEGATIVE) mg/dL Urine Ketones (NEGATIVE) mg/dL Urine Occult Blood (NEGATIVE) Urine Nitrite (NEGATIVE) Urine Bilirubin (NEGATIVE) Urine Urobilinogen (NORMAL) E.U./dL Ur Leukocyte Esterase (NEGATIVE) Urine RBC (0-5) /HPF Urine WBC (0-5) /HPF Ur Squamous Epith Cells (<= Few) Urine Bacteria (None Seen) /HPF Ur Microscopic Review Urine Culture Comments Urine HCG, Qual Nasal Screen MRSA (PCR) (NEGATIVE) Urine Opiates Screen (NEGATIVE) Ur Oxycodone Screen (NEGATIVE) Urine Methadone Screen (NEGATIVE) Ur Propoxyphene Screen (NEGATIVE) Ur Barbiturates Screen (NEGATIVE) Ur Tricyclics Screen (NEGATIVE) Ur Phencyclidine Scrn (NEGATIVE) Ur Amphetamine Screen (NEGATIVE) U Methamphetamines Scrn (NEGATIVE) U Benzodiazepines Scrn (NEGATIVE) Urine Cocaine Screen (NEGATIVE) U Cannabinoids Screen (NEGATIVE) Serum Ketones (NEGATIVE) 02/17/19 02/17/19 02/17/19 Range/Units 12:18 10:55 10:55 WBC (4.8-10.8) x10^3/uL RBC (4.20-5.40) 10^6/uL Hgb (12.0-16.0) g/dL Hct (37.0-47.0) % MCV (81.0-99.0) fL MCH (27.0-31.0) pg MCHC (32.0-36.0) g/dL RDW (12.0-15.0) % Plt Count (130-450) 10^3/uL MPV (7.9-10.8) fL Neut # (Auto) (1.5-6.6) 10^3/uL Lymph # (Auto) (1.5-3.5) 10^3/uL [place] # (Auto) (0.0-1.0) 10^3/uL Eos # (Auto) (0.0-0.7) 10^3/uL Baso # (Auto) (0.0-0.1) 10^3/uL Absolute Nucleated RBC x10^3/uL Nucleated RBC % /100WBC VBG pH (7.31-7.41) VBG pCO2 (41-51) mmHg VBG pO2 (25-47) mmHg VBG HCO3 (23-28) mmol/L VBG Total CO2 (24-29) mmol/L VBG O2 Saturation (60-80) % VBG Base Excess (-2 - +2) mmol/L Ionized Calcium (1.15-1.33) mmol/L Sodium 143 140 (135-145) mmol/L Potassium 4.0 4.9 (3.5-5.0) mmol/L Chloride 107 101 (101-111) mmol/L Carbon Dioxide < 6 L* < 6 L* (21-32) mmol/L Anion Gap 30.0 H 33.0 H (6-13) BUN 19 19 (6-20) mg/dL Creatinine 1.5 H 1.4 H (0.4-1.0) mg/dL Estimated GFR (MDRD) 38 L 42 L (>89) Glucose 525 H* 717 H* (70-100) mg/dL Glycated Hemoglobin (4.6-6.2) % Estim Average Glucose (70-100) Calcium 9.0 9.2 (8.5-10.3) mg/dL Phosphorus (2.5-4.6) mg/dL Magnesium 2.3 2.4 (1.7-2.8) mg/dL Troponin I < 0.04 (<0.49) ng/mL Troponin I High Sens 31.8 H* (2.3-14.8) pg/mL Albumin (3.2-5.5) g/dL Urine Color Urine Clarity (CLEAR) Urine pH (5.0-7.5) PH Ur Specific [place] (1.002-1.030) Urine Protein (NEGATIVE) mg/dL Urine Glucose (UA) (NEGATIVE) mg/dL Urine Ketones (NEGATIVE) mg/dL Urine Occult Blood (NEGATIVE) Urine Nitrite (NEGATIVE) Urine Bilirubin (NEGATIVE) Urine Urobilinogen (NORMAL) E.U./dL Ur Leukocyte Esterase (NEGATIVE) Urine RBC (0-5) /HPF Urine WBC (0-5) /HPF Ur Squamous Epith Cells (<= Few) Urine Bacteria (None Seen) /HPF Ur Microscopic Review Urine Culture Comments Urine HCG, Qual Nasal Screen MRSA (PCR) (NEGATIVE) Urine Opiates Screen (NEGATIVE) Ur Oxycodone Screen (NEGATIVE) Urine Methadone Screen (NEGATIVE) Ur Propoxyphene Screen (NEGATIVE) Ur Barbiturates Screen (NEGATIVE) Ur Tricyclics Screen (NEGATIVE) Ur Phencyclidine Scrn (NEGATIVE) Ur Amphetamine Screen (NEGATIVE) U Methamphetamines Scrn (NEGATIVE) U Benzodiazepines Scrn (NEGATIVE) Urine Cocaine Screen (NEGATIVE) U Cannabinoids Screen (NEGATIVE) Serum Ketones (NEGATIVE) 02/17/19 02/17/19 02/17/19 Range/Units 10:30 10:30 10:30 WBC (4.8-10.8) x10^3/uL RBC (4.20-5.40) 10^6/uL Hgb (12.0-16.0) g/dL Hct (37.0-47.0) % MCV (81.0-99.0) fL MCH (27.0-31.0) pg MCHC (32.0-36.0) g/dL RDW (12.0-15.0) % Plt Count (130-450) 10^3/uL MPV (7.9-10.8) fL Neut # (Auto) (1.5-6.6) 10^3/uL Lymph # (Auto) (1.5-3.5) 10^3/uL [place] # (Auto) (0.0-1.0) 10^3/uL Eos # (Auto) (0.0-0.7) 10^3/uL Baso # (Auto) (0.0-0.1) 10^3/uL Absolute Nucleated RBC x10^3/uL Nucleated RBC % /100WBC VBG pH (7.31-7.41) VBG pCO2 (41-51) mmHg VBG pO2 (25-47) mmHg VBG HCO3 (23-28) mmol/L VBG Total CO2 (24-29) mmol/L VBG O2 Saturation (60-80) % VBG Base Excess (-2 - +2) mmol/L Ionized Calcium (1.15-1.33) mmol/L Sodium (135-145) mmol/L Potassium (3.5-5.0) mmol/L Chloride (101-111) mmol/L Carbon Dioxide (21-32) mmol/L Anion Gap (6-13) BUN (6-20) mg/dL Creatinine (0.4-1.0) mg/dL Estimated GFR (MDRD) (>89) Glucose (70-100) mg/dL Glycated Hemoglobin (4.6-6.2) % Estim Average Glucose (70-100) Calcium (8.5-10.3) mg/dL Phosphorus (2.5-4.6) mg/dL Magnesium (1.7-2.8) mg/dL Troponin I (<0.49) ng/mL Troponin I High Sens (2.3-14.8) pg/mL Albumin (3.2-5.5) g/dL Urine Color Urine Clarity (CLEAR) Urine pH (5.0-7.5) PH Ur Specific [place] 1.020 (1.002-1.030) Urine Protein (NEGATIVE) mg/dL Urine Glucose (UA) (NEGATIVE) mg/dL Urine Ketones (NEGATIVE) mg/dL Urine Occult Blood (NEGATIVE) Urine Nitrite (NEGATIVE) Urine Bilirubin (NEGATIVE) Urine Urobilinogen (NORMAL) E.U./dL Ur Leukocyte Esterase (NEGATIVE) Urine RBC (0-5) /HPF Urine WBC (0-5) /HPF Ur Squamous Epith Cells (<= Few) Urine Bacteria (None Seen) /HPF Ur Microscopic Review Urine Culture Comments Urine HCG, Qual NEGATIVE Nasal Screen MRSA (PCR) NEGATIVE (NEGATIVE) Urine Opiates Screen NEGATIVE (NEGATIVE) Ur Oxycodone Screen NEGATIVE (NEGATIVE) Urine Methadone Screen NEGATIVE (NEGATIVE) Ur Propoxyphene Screen NEGATIVE (NEGATIVE) Ur Barbiturates Screen NEGATIVE (NEGATIVE) Ur Tricyclics Screen NEGATIVE (NEGATIVE) Ur Phencyclidine Scrn NEGATIVE (NEGATIVE) Ur Amphetamine Screen NEGATIVE (NEGATIVE) U Methamphetamines Scrn NEGATIVE (NEGATIVE) U Benzodiazepines Scrn NEGATIVE (NEGATIVE) Urine Cocaine Screen NEGATIVE (NEGATIVE) U Cannabinoids Screen NEGATIVE (NEGATIVE) Serum Ketones (NEGATIVE) 02/17/19 02/17/19 02/17/19 Range/Units 09:37 08:50 08:00 WBC (4.8-10.8) x10^3/uL RBC (4.20-5.40) 10^6/uL Hgb (12.0-16.0) g/dL Hct (37.0-47.0) % MCV (81.0-99.0) fL MCH (27.0-31.0) pg MCHC (32.0-36.0) g/dL RDW (12.0-15.0) % Plt Count (130-450) 10^3/uL MPV (7.9-10.8) fL Neut # (Auto) (1.5-6.6) 10^3/uL Lymph # (Auto) (1.5-3.5) 10^3/uL [place] # (Auto) (0.0-1.0) 10^3/uL Eos # (Auto) (0.0-0.7) 10^3/uL Baso # (Auto) (0.0-0.1) 10^3/uL Absolute Nucleated RBC x10^3/uL Nucleated RBC % /100WBC VBG pH (7.31-7.41) VBG pCO2 (41-51) mmHg VBG pO2 (25-47) mmHg VBG HCO3 (23-28) mmol/L VBG Total CO2 (24-29) mmol/L VBG O2 Saturation (60-80) % VBG Base Excess (-2 - +2) mmol/L Ionized Calcium (1.15-1.33) mmol/L Sodium (135-145) mmol/L Potassium (3.5-5.0) mmol/L Chloride (101-111) mmol/L Carbon Dioxide (21-32) mmol/L Anion Gap (6-13) BUN (6-20) mg/dL Creatinine (0.4-1.0) mg/dL Estimated GFR (MDRD) (>89) Glucose (70-100) mg/dL Glycated Hemoglobin 12.2 H (4.6-6.2) % Estim Average Glucose 303 H (70-100) Calcium (8.5-10.3) mg/dL Phosphorus (2.5-4.6) mg/dL Magnesium (1.7-2.8) mg/dL Troponin I < 0.04 (<0.49) ng/mL Troponin I High Sens 21.0 H* (2.3-14.8) pg/mL Albumin (3.2-5.5) g/dL Urine Color YELLOW Urine Clarity SL. CLOUDY (CLEAR) Urine pH 5.0 (5.0-7.5) PH Ur Specific [place] 1.020 (1.002-1.030) Urine Protein TRACE (NEGATIVE) mg/dL Urine Glucose (UA) 500 H (NEGATIVE) mg/dL Urine Ketones >=80 H (NEGATIVE) mg/dL Urine Occult Blood LARGE H (NEGATIVE) Urine Nitrite NEGATIVE (NEGATIVE) Urine Bilirubin NEGATIVE (NEGATIVE) Urine Urobilinogen 0.2 (NORMAL) (NORMAL) E.U./dL Ur Leukocyte Esterase NEGATIVE (NEGATIVE) Urine RBC 11-25 H (0-5) /HPF Urine WBC 0-3 (0-5) /HPF Ur Squamous Epith Cells RARE Squamous (<= Few) Urine Bacteria Few (None Seen) /HPF Ur Microscopic Review INDICATED Urine Culture Comments NOT INDICATED Urine HCG, Qual Nasal Screen MRSA (PCR) (NEGATIVE) Urine Opiates Screen (NEGATIVE) Ur Oxycodone Screen (NEGATIVE) Urine Methadone Screen (NEGATIVE) Ur Propoxyphene Screen (NEGATIVE) Ur Barbiturates Screen (NEGATIVE) Ur Tricyclics Screen (NEGATIVE) Ur Phencyclidine Scrn (NEGATIVE) Ur Amphetamine Screen (NEGATIVE) U Methamphetamines Scrn (NEGATIVE) U Benzodiazepines Scrn (NEGATIVE) Urine Cocaine Screen (NEGATIVE) U Cannabinoids Screen (NEGATIVE) Serum Ketones (NEGATIVE) 02/17/19 02/17/19 02/17/19 Range/Units 08:00 08:00 08:00 WBC 12.6 H (4.8-10.8) x10^3/uL RBC 4.29 (4.20-5.40) 10^6/uL Hgb 14.3 (12.0-16.0) g/dL Hct 44.2 (37.0-47.0) % MCV 103.0 H (81.0-99.0) fL MCH 33.3 H (27.0-31.0) pg MCHC 32.4 (32.0-36.0) g/dL RDW 13.3 (12.0-15.0) % Plt Count 338 (130-450) 10^3/uL MPV 9.9 (7.9-10.8) fL Neut # (Auto) 10.7 H (1.5-6.6) 10^3/uL Lymph # (Auto) 1.2 L (1.5-3.5) 10^3/uL [place] # (Auto) 0.6 (0.0-1.0) 10^3/uL Eos # (Auto) 0.1 (0.0-0.7) 10^3/uL Baso # (Auto) 0.1 (0.0-0.1) 10^3/uL Absolute Nucleated RBC 0.00 x10^3/uL Nucleated RBC % 0.0 /100WBC VBG pH 7.177 L (7.31-7.41) VBG pCO2 21.4 L (41-51) mmHg VBG pO2 39.7 (25-47) mmHg VBG HCO3 7.8 L (23-28) mmol/L VBG Total CO2 8.4 L (24-29) mmol/L VBG O2 Saturation 66.4 (60-80) % VBG Base Excess -18.6 L (-2 - +2) mmol/L Ionized Calcium (1.15-1.33) mmol/L Sodium 135 (135-145) mmol/L Potassium 5.1 H (3.5-5.0) mmol/L Chloride 93 L (101-111) mmol/L Carbon Dioxide 6 L* (21-32) mmol/L Anion Gap 36.0 H (6-13) BUN 19 (6-20) mg/dL Creatinine 4.1 H (0.4-1.0) mg/dL Estimated GFR (MDRD) 12 L (>89) Glucose 737 H* (70-100) mg/dL Glycated Hemoglobin (4.6-6.2) % Estim Average Glucose (70-100) Calcium 9.2 (8.5-10.3) mg/dL Phosphorus (2.5-4.6) mg/dL Magnesium (1.7-2.8) mg/dL Troponin I (<0.49) ng/mL Troponin I High Sens (2.3-14.8) pg/mL Albumin (3.2-5.5) g/dL Urine Color Urine Clarity (CLEAR) Urine pH (5.0-7.5) PH Ur Specific [place] (1.002-1.030) Urine Protein (NEGATIVE) mg/dL Urine Glucose (UA) (NEGATIVE) mg/dL Urine Ketones (NEGATIVE) mg/dL Urine Occult Blood (NEGATIVE) Urine Nitrite (NEGATIVE) Urine Bilirubin (NEGATIVE) Urine Urobilinogen (NORMAL) E.U./dL Ur Leukocyte Esterase (NEGATIVE) Urine RBC (0-5) /HPF Urine WBC (0-5) /HPF Ur Squamous Epith Cells (<= Few) Urine Bacteria (None Seen) /HPF Ur Microscopic Review Urine Culture Comments Urine HCG, Qual Nasal Screen MRSA (PCR) (NEGATIVE) Urine Opiates Screen (NEGATIVE) Ur Oxycodone Screen (NEGATIVE) Urine Methadone Screen (NEGATIVE) Ur Propoxyphene Screen (NEGATIVE) Ur Barbiturates Screen (NEGATIVE) Ur Tricyclics Screen (NEGATIVE) Ur Phencyclidine Scrn (NEGATIVE) Ur Amphetamine Screen (NEGATIVE) U Methamphetamines Scrn (NEGATIVE) U Benzodiazepines Scrn (NEGATIVE) Urine Cocaine Screen (NEGATIVE) U Cannabinoids Screen (NEGATIVE) Serum Ketones MODERATE H (NEGATIVE) ABX Reporting Has patient been on IV antibiotics over the past 48 hours?: No Assessment/Plan - Problem List (1) DKA, type 1, not at goal Impression: This is unfortunately 1 of many encounters through the emergency room as well as hospitalization for this female who has poorly controlled diabetes. Some of the more economic factors, but some of them are social factors. her anion gap is closing but her glucose remains labile on the drip. She is also having IV access difficulty and it's a judgement to keep going the way we are or get a PICC line for a day. Plan: DKA protocol with insulin drip, Switch to lantus now and continue drip @ 2u/hr for now until stable. Start po intake Aggressive management of fluid status Aggressive management of electrolyte replacement Correction of acidosis is slowly working Trying to identify those factors that we can eliminate to make her more successful at managing her disease Ask anesthesia to help with IV (2) Abdominal pain Conclusion/Plan: Examination continues to be relatively benign. While she has abdominal pain, there are no peritoneal signs, she does not have a white cell count, and continues to have bowel sounds. Plan: If abdominal exam changes, or she develops peritoneal findings, may consider imaging study. Avoid IV opiates. Qualifiers: Abdominal location: generalized Qualified Code(s): R10.84 - Generalized abdominal pain (3) Metabolic acidosis due to diabetes mellitus Conclusion/Plan: As in problem #1. Aggressive hydration, insulin management, and correction of electrolytes. (4) Atypical chest pain Conclusion/Plan: In reading through the notes, some of her chest pain is musculoskeletal. She is recently had a coronary angiogram that was negative. [facility] reviewed and there are noted below in #5. 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 Currently with a biventricular pacer. 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 Transvenous system implanted in 2017, later explanted fro MSSA infection. Right sided transvenous system implanted again and then removed for corynebacerium infection. Evaluated for CAD and had a Cath at [facility] that showed moderate disease in her LAD but otherwise nonobstructive disease in her LAD and no evidence of ischemic heart myopathy. 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 She had a history of pericarditis in 2015. 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 LVEF normalized with [employer]. Admitted 07/02/17 with BRINK and was found to have failure of capture from both RV and LV epicardial leads with a narrow QRS excape rhythm. Another transvenous devide implant 07/08/17 with an RA, His, and RV lead placed prior to [employer]-P generator used. She was hospitalized for chest pain in September 2018 and proceeded with a myocardial perfusion study 09/25/18 which shows possible ischemia along inferior wall. Cath #2 09/2018 shows no evidence of severe disease. Moderate diffuse disease in her LAD. EF is 50-55%. Currently she is tachycardic. They are all associated with pacer spikes. Will contact cardiology to see what type of pacer she has a nd make sure that it is capturing correctly. Sheng Good [phone] (6) Hypertension Conclusion/Plan: On presentation she is uncontrolled. Resumed her beta-kalin on admission. Lisinopril today. BP is slowly coming down into normal range. Continue to ob serve and adjust medication. Qualifiers: Hypertension type: essential hypertension Qualified Code(s): I10 - Essential (primary) hypertension (7) Macrocytosis without anemia Conclusion/Plan: In December 2017 her B12 and folate were low normal. No change in cell size or RBC count since that time. This may be related to medication. In the outpatient setting she can get a consult from hematology.
[2019-02-18] MEDS: traMADol 50 MG TABLET PO PRN ×2 (07:51→20:11)
[2019-02-18] MEDS: NYSTATIN CREAM 15 GM TUBE TOP SCH ×2 (08:06→21:10)
[2019-02-18] MEDS: LISINOPRIL 5 MG TABLET PO SCH (09:07)
[2019-02-18] MEDS: VENLAFAXINE ER 75 MG CAPSULE PO SCH (09:08)
[2019-02-18] MEDS: DICYCLOMINE 10 MG CAPSULE PO SCH ×4 (09:09→21:09)
[2019-02-18] MEDS: METOPROLOL SUCCINATE 25 MG TABLET PO SCH ×2 (09:09→21:09)
[2019-02-18] MEDS: INSULIN GLARGINE 300 UNIT/3 ML PEN SUBQ SCH ×2 (09:10→21:15)
[2019-02-18] MEDS ORDERED: ONDANSETRON 4 MG/2 ML VIAL IVP PRN (12:44)
[2019-02-18] MEDS: AMITRIPTYLINE 25 MG TABLET PO SCH (21:09)
[2019-02-18] MEDS: INSULIN ASPART 300 UNIT/3 ML PEN SUBQ SCH (21:15)
[2019-02-19] MEDS: HYDROcod/ACETAM 5/325 MG TABLET PO PRN ×4 (02:09→19:37)
[2019-02-19] MEDS: SODIUM CHLORIDE FLUSH 0.9% 10 ML SYRINGE IVP SCH ×2 (02:14→10:59)
[2019-02-19] MEDS: INSULIN REGULAR HUMAN 100 UNIT in SODIUM CHLORIDE 0.9% 100ML 99 ML IV SCH ×2 (02:17→06:42)
[2019-02-19 05:36] LABS: VBG BASE EXCESS -5.9 mmol/L (-2 - +2); VBG PCO2 27.7 mmHg (41-51); VBG PH 7.414 (7.31-7.41); VBG PO2 206.5 mmHg (25-47); VBG TOTAL CO2 18.2 mmol/L (24-29)
[2019-02-19 05:37] LABS: BASOPHILS % (AUTO) 0.6 %; EOSINOPHILS % (AUTO) 0.6 %; HGB - HEMOGLOBIN 11.8 g/dL (12.0-16.0); LYMPHOCYTES # (AUTO) 0.5 10^3/uL (1.5-3.5); LYMPHOCYTES % (AUTO) 9.3 %; MEAN CORPUSCULAR HEMOGLOBIN 33.2 pg (27.0-31.0); MEAN CORPUSCULAR HGB CONC 32.1 g/dL (32.0-36.0); MEAN CORPUSCULAR VOLUME 103.7 fL (81.0-99.0); MEAN PLATELET VOLUME 9.5 fL (7.9-10.8); MONOCYTES # (AUTO) 0.3 10^3/uL (0.0-1.0); MONOCYTES % (AUTO) 5.2 %; NEUTROPHILS # (AUTO) 4.1 10^3/uL (1.5-6.6); NEUTROPHILS % (AUTO) 83.9 %; PLT - PLATELET COUNT 152 10^3/uL (130-450); RED BLOOD COUNT 3.55 10^6/uL (4.20-5.40); RED CELL DISTRIBUTION WIDTH 14.2 % (12.0-15.0); WHITE BLOOD COUNT 4.9 x10^3/uL (4.8-10.8)
[2019-02-19] MEDS: LEVOTHYROXINE 125 MCG TABLET PO SCH (06:28)
[2019-02-19] MEDS: GABAPENTIN 100 MG CAPSULE PO SCH ×3 (06:30→21:00)
[2019-02-19] MEDS: LEVOTHYROXINE 25 MCG TABLET PO SCH (06:30)
[2019-02-19 06:31] LABS: CREATININE 0.8 mg/dL (0.4-1.0); MAGNESIUM 1.7 mg/dL (1.7-2.8)
[2019-02-19] MEDS: traMADol 50 MG TABLET PO PRN ×2 (06:33→12:37)
[2019-02-19] MEDS: D5.45NS W/20 MEQ KCL 1,000 ML IV SCH (06:43)
[2019-02-19] MEDS: NS W/20 MEQ KCL 1,000 ML IV SCH (06:43)
[2019-02-19] MEDS ORDERED: POTASSIUM CHLORIDE 20 MEQ/15 ML UDC PO ONE (07:00)
[2019-02-19 08:15] LABS: VBG PH 7.493 (7.31-7.41)
[2019-02-19 08:32] LABS: ALBUMIN 2.4 g/dL (3.2-5.5); PHOSPHORUS 2.1 mg/dL (2.5-4.6)
[2019-02-19] MEDS: INSULIN ASPART 300 UNIT/3 ML PEN SUBQ SCH ×4 (09:36→21:27)
[2019-02-19] MEDS: DICYCLOMINE 10 MG CAPSULE PO SCH ×4 (09:40→21:00)
[2019-02-19] MEDS: LISINOPRIL 5 MG TABLET PO SCH (09:40)
[2019-02-19] MEDS: INSULIN GLARGINE 300 UNIT/3 ML PEN SUBQ SCH ×2 (09:41→21:39)
[2019-02-19] MEDS: VENLAFAXINE ER 75 MG CAPSULE PO SCH (09:41)
[2019-02-19] MEDS: METOPROLOL SUCCINATE 25 MG TABLET PO SCH ×2 (09:41→21:00)
[2019-02-19] MEDS ORDERED: NEUTRA-PHOS 250 MG TABLET PO SCH (10:00)
--- NOTE | 2019-02-19 10:32 | PROVIDER PROGRESS NOTE ---
Subjective - Prog Note Date Prog Note Date: 02/19/19 Prog Note Time: 12:29 - Subjective Pt reports feeling: Improved Subjective: She has lost IV access again. Is been difficult to maintain her IVs because she is a difficult stick and a difficult draw. Her sugars are now down to the 130s this morning. Her only complaint is that of carbuncle/furuncles. She has one on the back of her neck that is erupted with bloody yellow discharge. And she is had one in the epigastric area of her abdomen that started yesterday and is been growing and now ruptured. No fever, no chills. She says she has had these before. Current Medications - Current Medications Current Medications: Active Medications Acetaminophen (Tylenol) 650 mg PO Q4HR PRN PRN Reason: Pain 1 to 4 Hydrocodone Bitart/Acetaminophen ([place] 5/325) 2 tab PO Q4HR PRN PRN Reason: PAIN Last Admin: 02/19/19 09:40 Dose: 2 tab Amitriptyline HCl (Elavil) 50 mg PO QPM [facility] Last Admin: 02/18/19 21:09 Dose: 50 mg Calcium Carbonate/Glycine (Tums) 500 mg PO BID [facility] Last Admin: 02/19/19 11:36 Dose: 500 mg Clindamycin HCl (Cleocin) 300 mg PO Q6HR [facility] Last Admin: 02/19/19 12:24 Dose: 300 mg Dicyclomine HCl (Bentyl) 20 mg PO QID [facility] Last Admin: 02/19/19 09:40 Dose: 20 mg Gabapentin (Neurontin) 200 mg PO TID [facility] Last Admin: 02/19/19 06:30 Dose: 200 mg Insulin Aspart (Novolog) 2 - 10 unit SUBQ 0800,1200,1700,2100 [facility]; Protocol Last Admin: 02/19/19 12:25 Dose: 4 unit Insulin Glargine (Lantus Solostar) 32 unit SUBQ QPM [facility] Last Admin: 02/18/19 21:15 Dose: 32 unit Insulin Glargine (Lantus Solostar) 30 unit SUBQ DAILYWM [facility] Last Admin: 02/19/19 09:41 Dose: 30 unit Levothyroxine Sodium (Synthroid) 250 mcg PO QDAC [facility] Last Admin: 02/19/19 06:28 Dose: 250 mcg Levothyroxine Sodium (Synthroid) 25 mcg PO QDAC [facility] Last Admin: 02/19/19 06:30 Dose: 25 mcg Lisinopril (Zestril) 10 mg PO DAILY [facility] Last Admin: 02/19/19 09:40 Dose: 10 mg Magnesium Oxide (Mag Ox) 400 mg PO Q6H [facility]; Protocol Stop: 02/19/19 16:01 Last Admin: 02/19/19 10:57 Dose: 400 mg Metoprolol Succinate (Toprol Xl) 25 mg PO BID [facility] Last Admin: 02/19/19 09:41 Dose: 25 mg Nystatin (Mycostatin Cream) 1 applic TOP BID [facility] Last Admin: 02/19/19 10:58 Dose: 1 applic Sodium Phosphate (K-Phos Neutral) 250 mg PO Q2H [facility]; Protocol Stop: 02/19/19 14:01 Last Admin: 02/19/19 12:25 Dose: 250 mg Tramadol HCl (Ultram) 50 mg PO Q6HR PRN PRN Reason: PAIN Last Admin: 02/19/19 06:33 Dose: 50 mg Venlafaxine HCl (Effexor Er) 150 mg PO DAILY [facility] Last Admin: 02/19/19 09:41 Dose: 150 mg Insulin Glargine,Hum.rec.anlog [Lantus Solostar] 28 units SUBQ DAILY 09/05/13 Amitriptyline [Elavil] 50 mg PO QPM 07/03/14 Aspirin [Aspirin EC] 81 mg PO DAILY 10/08/17 Levothyroxine Sodium 275 mcg PO QDAC 10/08/17 Atorvastatin Calcium [Lipitor] 80 mg PO DAILY 01/20/18 Lisinopril [Zestril] 10 mg PO DAILY 01/20/18 Venlafaxine HCl [Venlafaxine HCl ER] 150 mg PO DAILY 01/20/18 Insulin Lispro [Humalog] 2 - 15 unit SUBQ ACHS 04/02/18 Famotidine 20 mg PO BID 09/04/18 Furosemide [Lasix] 80 mg PO DAILY 02/18/19 Objective - Vital Signs/Intake & Output Reviewed Vital Signs: Yes Vital Signs: Vital Signs Temp Pulse Resp BP Pulse Ox 02/19/19 10:00 119 H 17 115/71 02/19/19 09:00 119 H 15 148/80 H 98 02/19/19 08:00 37.7 C H 118 H 16 143/78 H 99 02/19/19 07:00 36.6 C 109 H 16 153/74 H 97 Intake & Output: Intake & Output 02/16/19 02/17/19 02/18/19 02/19/19 23:59 23:59 23:59 23:59 Intake Total 3617.257 5192.534 1215 Output Total 1150 850 247 Balance 2467.257 4342.534 968 - Objective General Appearance: positive: No acute distress, Alert Eyes Bilateral: positive: PERRL, EOMI ENT: positive: Pharynx nml Neck: positive: No JVD. negative: Stiff neck Respiratory: positive: Chest non-tender. negative: Wheezes, Rales, Rhonchi Cardiovascular: positive: Regular rate & rhythm, Systolic murmur. negative: Gallop/S4, Friction rub Abdomen: positive: Non-tender, No organomegaly, Nml bowel sounds, No distention Skin: positive: Other (2 cm fluctuance on the back of her neck on the left side. Underneath the hairline. In the center is an area where she is using serosanguineous drainage. Fluctuance is with overlying pink, warm skin. She also has a 2 cm draining eschar in the skin area of epigastrium . there is no surrounding cellulitis of either lesion.) Extremities: positive: Non-tender, Full ROM, Nml appearance Neurologic/Psychiatric: positive: Oriented x3, CN's nml (2-12), Motor nml, Sensation nml - Lab Results Fish Bones: 02/19/19 05:17 02/19/19 05:17 Other Labs: Lab Results x24hrs 02/19/19 02/19/19 02/19/19 Range/Units 08:05 05:17 05:17 WBC (4.8-10.8) x10^3/uL RBC (4.20-5.40) 10^6/uL Hgb (12.0-16.0) g/dL Hct (37.0-47.0) % MCV (81.0-99.0) fL MCH (27.0-31.0) pg MCHC (32.0-36.0) g/dL RDW (12.0-15.0) % Plt Count (130-450) 10^3/uL MPV (7.9-10.8) fL Neut # (Auto) (1.5-6.6) 10^3/uL Lymph # (Auto) (1.5-3.5) 10^3/uL Nolan # (Auto) (0.0-1.0) 10^3/uL Eos # (Auto) (0.0-0.7) 10^3/uL Baso # (Auto) (0.0-0.1) 10^3/uL Absolute Nucleated RBC x10^3/uL Nucleated RBC % /100WBC VBG pH 7.493 H 7.414 H (7.31-7.41) VBG pCO2 27.7 L (41-51) mmHg VBG pO2 206.5 H (25-47) mmHg VBG HCO3 17.3 L (23-28) mmol/L VBG Total CO2 18.2 L (24-29) mmol/L VBG O2 Saturation 99.1 H (60-80) % VBG Base Excess -5.9 L (-2 - +2) mmol/L Ionized Calcium 0.87 L (1.15-1.33) mmol/L Sodium (135-145) mmol/L Potassium (3.5-5.0) mmol/L Chloride (101-111) mmol/L Carbon Dioxide (21-32) mmol/L Anion Gap (6-13) BUN (6-20) mg/dL Creatinine (0.4-1.0) mg/dL Estimated GFR (MDRD) (>89) Glucose (70-100) mg/dL Calcium (8.5-10.3) mg/dL Phosphorus 2.1 L (2.5-4.6) mg/dL Magnesium (1.7-2.8) mg/dL Albumin 2.4 L (3.2-5.5) g/dL 02/19/19 02/19/19 Range/Units 05:17 05:17 WBC 4.9 (4.8-10.8) x10^3/uL RBC 3.55 L (4.20-5.40) 10^6/uL Hgb 11.8 L (12.0-16.0) g/dL Hct 36.8 L (37.0-47.0) % MCV 103.7 H (81.0-99.0) fL MCH 33.2 H (27.0-31.0) pg MCHC 32.1 (32.0-36.0) g/dL RDW 14.2 (12.0-15.0) % Plt Count 152 (130-450) 10^3/uL MPV 9.5 (7.9-10.8) fL Neut # (Auto) 4.1 (1.5-6.6) 10^3/uL Lymph # (Auto) 0.5 L (1.5-3.5) 10^3/uL Nolan # (Auto) 0.3 (0.0-1.0) 10^3/uL Eos # (Auto) 0.0 (0.0-0.7) 10^3/uL Baso # (Auto) 0.0 (0.0-0.1) 10^3/uL Absolute Nucleated RBC 0.00 x10^3/uL Nucleated RBC % 0.0 /100WBC VBG pH (7.31-7.41) VBG pCO2 (41-51) mmHg VBG pO2 (25-47) mmHg VBG HCO3 (23-28) mmol/L VBG Total CO2 (24-29) mmol/L VBG O2 Saturation (60-80) % VBG Base Excess (-2 - +2) mmol/L Ionized Calcium (1.15-1.33) mmol/L Sodium 140 (135-145) mmol/L Potassium 3.5 (3.5-5.0) mmol/L Chloride 108 (101-111) mmol/L Carbon Dioxide 19 L (21-32) mmol/L Anion Gap 13.0 (6-13) BUN 16 (6-20) mg/dL Creatinine 0.8 (0.4-1.0) mg/dL Estimated GFR (MDRD) 79 L (>89) Glucose 136 H (70-100) mg/dL Calcium 7.0 L (8.5-10.3) mg/dL Phosphorus (2.5-4.6) mg/dL Magnesium 1.7 (1.7-2.8) mg/dL Albumin (3.2-5.5) g/dL Assessment/Plan - Problem List (1) Carbuncle and furuncle of neck Impression: Most likely MRSA boils. She is allergic to Bactrim. Plan: Clindamycin 300 mg p.o. every 6 hours Florastor (2) DKA Type 1, uncontrolled , with complications This is unfortunately 1 of many encounters through the emergency room as well as hospitalization for this female who has poorly controlled diabetes. Some of the more economic factors, but some of them are social factors. Her anion gap is now normal. Base excess on the last blood gas -5.6. Plan: DKA protocol with insulin drip, then switched to lantus and continued drip @ 2 to 4 u/hr and off drip since IV access gone and glucose nml Started po intake yesterday Aggressive management of fluid status has now stopped Management of electrolyte replacement continues thru po replacement Correction of acidosis successful Trying to identify those factors that we can eliminate to make her more succes sful at managing her disease Transfer from ICU status to med surg status. (3) Abdominal pain resolved. Conclusion/Plan: Examination continues to be relatively benign. While she has abdominal pain, there are no peritoneal signs, she does not have a white cell count, and continues to have bowel sounds. Plan: If abdominal exam changes, or she develops peritoneal findings, may consider imaging study. Avoid IV opiates. Qualifiers: Abdominal location: generalized Qualified Code(s): R10.84 - Generalized abdominal pain (4) Metabolic acidosis due to diabetes mellitus resolved Conclusion/Plan: As in problem #1. Aggressive hydration, insulin management, and correction of electrolytes. (5) Atypical chest pain resolved Conclusion/Plan: In reading through the notes, some of her chest pain is musculoskeletal. She is recently had a coronary angiogram that was negative. Her Canine Enforcement Officer is Sheng Good thru [facility]. Records reviewed and there are noted below in #5. Laboratory Tests 02/17/19 02/17/19 02/17/19 08:00 10:55 20:32 Troponin I 0.04 Troponin I High Sens 21.0 H* 31.8 H* 58.1 H* 02/18/19 02:15 Troponin I < 0.04 Troponin I High Sens 49.3 H* (6) Tachycardia-bradycardia syndrome/CAD tetlin artery Conclusion/Plan: Records reviewed. Currently with a biventricular pacer. 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 Transvenous system implanted in 2017, later explanted fro MSSA infection. Right sided transvenous system implanted again and then removed for corynebacerium infection. Evaluated for CAD and had a Cath at [facility] that showed moderate disease in her LAD but otherwise nonobstructive disease in her LAD and no evidence of ischemic heart myopathy. 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 She had a history of pericarditis in 2014. 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 LVEF normalized with PLASTIC SURGERY NURSE. Admitted 07/02/17 with BRINK and was found to have failure of capture from both RV and LV epicardial leads with a narrow QRS excape rhythm. Another transvenous devide implant 07/08/17 with an RA, His, and RV lead placed prior to PLASTIC SURGERY NURSE-P generator used. She was hospitalized for chest pain in September 2018 and proceeded with a myocardial perfusion study 09/25/18 which shows possible ischemia along inferior wall. Cath #2 09/2018 shows no evidence of severe disease. Moderate diffuse disease in her LAD. EF is 50-55%. Currently she is tachycardic. They are all associated with pacer spikes. I called her archery equipment repairer,Sheng Good [phone], And he states that her pacer is such that she will have pacer spikes with each beat. What I am seeing is normal. (7) Hypertension Conclusion/Plan: On presentation she is uncontrolled. Resumed her beta-kalin on admission. Lisinopril today. BP is slowly coming down into normal range. Continue to observe and adjust medication.Today she is 115/71-148/80. No changes needed. Qualifiers: Hypertension type: essential hypertension Qualified Code(s): I10 - Essential (primary) hypertension (8) Macrocytosis without anemia Conclusion/Plan: In December 2017 her B12 and folate were low normal. No change in cell size or RBC count since that time. This may be related to medication. In the outpatient setting she can get a consult from hematology.
[2019-02-19] MEDS: MAGNESIUM OXIDE 400 MG TABLET PO SCH ×2 (10:57→16:49)
[2019-02-19] MEDS: NYSTATIN CREAM 15 GM TUBE TOP SCH ×2 (10:58→21:27)
[2019-02-19] MEDS: CALCIUM CARBONATE CHEW 500 MG TABLET PO SCH ×2 (11:36→21:00)
[2019-02-19] MEDS: CLINDAMYCIN 150 MG CAPSULE PO SCH ×2 (12:24→16:49)
[2019-02-19] MEDS: NEUTRA-PHOS 250 MG TABLET PO SCH ×2 (12:25→14:13)
[2019-02-19] MEDS: AMITRIPTYLINE 25 MG TABLET PO SCH (21:00)
[2019-02-19] MEDS ORDERED: INSULIN GLARGINE 300 UNIT/3 ML PEN SUBQ SCH (22:00)
[2019-02-20] MEDS: traMADol 50 MG TABLET PO PRN (00:41)
[2019-02-20] MEDS: CLINDAMYCIN 150 MG CAPSULE PO SCH ×4 (00:41→13:58)
[2019-02-20] MEDS: HYDROcod/ACETAM 5/325 MG TABLET PO PRN ×3 (04:13→12:32)
[2019-02-20] MEDS: GABAPENTIN 100 MG CAPSULE PO SCH ×2 (06:38→13:54)
[2019-02-20] MEDS: LEVOTHYROXINE 125 MCG TABLET PO SCH (06:39)
[2019-02-20] MEDS: LEVOTHYROXINE 25 MCG TABLET PO SCH (06:40)
--- NOTE | 2019-02-20 08:05 | Discharge Plan ---
Discharge Plan Problem Reviewed?: Yes Disposition: Home, Self Care Condition: Good Prescriptions: Clindamycin HCl [Clindamycin 300MG CAP] 300 mg PO TID #18 capsule Diet: Diabetic Activity Restrictions: Activity as Tolerated Shower Restrictions: No Driving Restrictions: No Health Concerns: You have been having nausea, generalized abdominal pain and recognize that this is sometimes DKA for you. You came to the emergency room and you were in DKA. You were placed in the ICU and were put on an insulin drip. It is taken 2 days of an insulin drip with transition to your usual insulin subcutaneously that finally brought you under control. While you are here you had MRSA boils in the skin of your stomach wall in the back of your neck. You were started on clindamycin. Plan of Treatment: Clindamycin was used for the skin infection. You are now back on subcutaneous Lantus and short acting insulin. Please make sure you stay very hydrated and drink at least a liter of fluid a day. Preferably water. Care Goals: -Please see your primary care provider in follow-up. -Finish your clindamycin -Take an [id number] probiotic to avoid diarrhea from clindamycin -Try and identify those factors that are affecting your success with your ability to control your diabetes. I have given you a list of approximately a year and a half of visits to the emergency room. As well as the number of admissions for DKA. Please show these to your miller helper distillery so that you, your miller helper distillery, and possibly a social insurance administrator/counsellor can help you make a plan that allows you to increase your success rate of controlling your diabetes and reducing the amount of healthcare encounters you are unfortunately having. Assessment: patient understands plan. will try to follow through. No Smoking: If you smoke, Please STOP! Call for help. Follow-up with: Amisha Staton DO [Primary Care Provider] -
[2019-02-20] MEDS: INSULIN ASPART 300 UNIT/3 ML PEN SUBQ SCH ×2 (08:39→12:04)
[2019-02-20] MEDS: INSULIN GLARGINE 300 UNIT/3 ML PEN SUBQ SCH (08:41)
[2019-02-20] MEDS ORDERED: ONDANSETRON ODT 4 MG TABLET TL PRN (09:12)
[2019-02-20 09:23] VITALS: BP 153/97
[2019-02-20] MEDS: LISINOPRIL 5 MG TABLET PO SCH (10:14)
[2019-02-20] MEDS: CALCIUM CARBONATE CHEW 500 MG TABLET PO SCH (10:14)
[2019-02-20] MEDS: DICYCLOMINE 10 MG CAPSULE PO SCH (10:14)
[2019-02-20] MEDS: VENLAFAXINE ER 75 MG CAPSULE PO SCH (10:16)
[2019-02-20] MEDS: METOPROLOL SUCCINATE 25 MG TABLET PO SCH (10:23)
[2019-02-20] MEDS: NYSTATIN CREAM 15 GM TUBE TOP SCH (10:31)
--- NOTE | 2019-02-20 18:09 | DISCHARGE SUMMARY ---
Discharge Summary Admit Date: 02/17/19 Discharge Date: 02/20/19 Discharging Provider: Nia Upton MD Primary Care Provider: Amisha Staton MD Code Status: Attempt Resuscitation Condition at Discharge: Stable Discharge Disposition: 01 Home, Self Care - DIAGNOSES Discharge Diagnoses with Status of Each Condition: (1) DKA Type 1, uncontrolled , with complications. Resolved. (2) Abdominal pain resolved. (3) Metabolic acidosis due to diabetes mellitus resolved (4) Atypical chest pain resolved (5) Tachycardia-bradycardia syndrome/CAD [place] artery (6) Hypertension (7) Macrocytosis without anemia (8) Carbuncle and furuncle of neck - HPI History of Present Illness: She is a 39-year-old female who is had type 1 diabetes mellitus. She is poorly controlled with multiple visits to the emergency room since her time of diagnosis. She is also had admissions for DKA. Sometimes it is because of noncompliance due to "the stress in her life". Sometimes it is without any inciting factors such as infection. She has frequent episodes of chest pain with her DKA. Because of tachybradycardia syndrome she has a pacer placed. She is had multiple cardiac evaluations. She had a heart cath 3 months ago with clear coronary arteries. Her last admission for DKA was August 2018. Her last visit to the emergency room was February 15 for chest pain nausea vomiting abdominal pain. With the February 15 visit to the emergency room she did have glucosuria ketonuria but her glucose was 111. High-sensitivity troponins were negative. She responded to IV fluids and antiemetics and was sent home. She was seen in the emergency room starting approximately 10:45 at night on February 15 and discharged in the director agency [employer] strategic [employer] hours of February 16 after 3 in the morning. She was supposed to see her primary care provider February 16. But her car broke down so she missed the appointment. She now presents to the emergency room again with diffuse generalized abdominal pain. Nonradiating. She is nauseated and retching but no true emesis. No fevers, chills, urgency, frequency, dysuria. Her chest pain continues. But she points her finger and localizes it to her chest wall where her pacemaker is. With today's emergency room visit temperature is 36.7, she is tachycardic at 120, blood pressure 180/80. Respirations 18 and she is 99% on room air. She has Js intertrigo in her pannus of her abdomen, under her breast, but negat lisa lung and cardiac exam. Abdominal exam is also negative. This time with her labs her carbon dioxide is 6, random glucose is 737, hyperkalemic at 5.1, venous blood gas is 7.1. She was 7.4 on February 15. Base excess is -18.6. She has a urinalysis that has glucosuria, ketonuria, large amount of occult blood, 11-25 red cells, 0-3 white cells, rare squamous cells, a few bacteria. Culture is not indicated. High-sensitivity troponins are again unremarkable. - CONSULTS | PROCEDURES Consultations: None Procedures: Insulin drip - HOSPITAL COURSE Hospital Course: (1) DKA Type 1, uncontrolled , with complications This is unfortunately 1 of many encounters through the emergency room as well as hospitalization for this female who has poorly controlled diabetes. Some of the more economic factors, but some of them are social factors. She was placed in the ICU for an insulin drip and was on and off the drip twice in the first 48 hours due to a glucose that would shoot up off the drip. Once adequate fluid resuscitation occurred tachycardia, anion gap, metabolic acidosis resolved. She was transitioned to her lantus and short acting insulin at a lower dose than usual since she was 100 to 197. Once she was sent home, asked to resume her usual dose since we expect her glucose to rise again. I did ask her to please try to see a counsellor or social service assistant who can help her identify the factors that contribute to her lack of sucess at controlling her glucose with multiple, multiple encounters in the ER and with admits for DKA. She seems to have lack of skills that are proactive. (2) Abdominal pain resolved. While she complained of abd pain, her exam was without peritoneal findings. She was eating and had flatus and bowel movements. I declined her request for intravenous opiates and encourage antiemetics and occasional ativan since there was a component of tachycardia, hyperventilation and tears. Small doses of ativan worked. (3) Metabolic acidosis due to diabetes mellitus resolved Resolved with aggressive hydration, insulin management, and correction of electrolytes. (4) Atypical chest pain resolved (5) Tachycardia-bradycardia syndrome/CAD [place] artery Records reviewed. Currently with a biventricular pacer. 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 Transvenous system implanted in 2017, later explanted because of MSSA infection. Right sided transvenous system implanted again and then removed for Corynebacerium infection. Evaluated for CAD and had a Cath at [facility] that showed moderate disease in her LAD but otherwise nonobstructive disease in her LAD and no evidence of ischemic heart myopathy. 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 She had a history of pericarditis in 2014. 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 LVEF normalized with ACTUARIAL ASSOCIATE. Admitted 07/02/17 with BRINK and was found to have failure of capture from both RV and LV epicardial leads with a narrow QRS excape rhythm. Another transvenous devide implant 07/08/17 with an RA, His, and RV lead placed prior to ACTUARIAL ASSOCIATE-P generator used. She was hospitalized for chest pain in September 2018 and proceeded with a myocardial perfusion study 09/25/18 which shows possible ischemia along inferior wall. Cath #2 09/2018 shows no evidence of severe disease. Moderate diffuse disease in her LAD. EF is 50-55%. While in ICU all of her QRS complexes were associated with pacer spikes even when tachycardic to the 140's. I called her midlevel provider,Sheng Good [phone], And he states that her pacer is such that she will have pacer spikes with each beat. What I am seeing is normal. (7) Hypertension On presentation she was uncontrolled. Resumed her beta-kalin on admission. Lisinopril added the next day. BP slowly came down into normal range. But she varied. At discharge, for 24 hours she ranged from 130's to 150's systolic, 70's to low 100's diastolic. She may need additional meds in the outpatient setting. (8) Macrocytosis without anemia In December 2017 her B12 and folate were low normal. No change in cell size or RBC count since that time. This may be related to medication. In the outpatient setting she can get a consult from hematology. (9) Carbuncle and furuncle of the neck She also had one of the skin of her epigastric abdominal wall. Hot compresses were started as well as clindamycin since she is allergic to sulfa. Asked to complete antibiotics at home and to take OTC probiotics. - ALLERGIES Allergies/Adverse Reactions: Allergies Allergy/AdvReac Type Severity Reaction Status Date / Time sulfamethoxazole Allergy Intermediate rash/ Verified 02/17/19 07:51 [From Bactrim] adhesive Allergy Rash Verified 02/17/19 07:51 amoxicillin [Amoxicillin] Allergy unknown Verified 02/17/19 07:51 oxycodone [Oxycodone] AdvReac Intermediate hallucinate, Verified 02/17/19 07:51 vomit promethazine HCl * AdvReac Mild Nausea Verified 02/17/19 07:51 [From Phenergan] - MEDICATIONS Home Medications: Ambulatory Orders Medication Instructions Recorded Confirmed Insulin Glargine,Hum.rec.anlog 28 units SUBQ DAILY 09/05/13 02/17/19 [Lantus Solostar] Amitriptyline [Elavil] 50 mg PO QPM 07/03/14 02/17/19 Aspirin [Aspirin EC] 81 mg PO DAILY 10/08/17 02/17/19 Levothyroxine Sodium 275 mcg PO QDAC 10/08/17 02/17/19 Atorvastatin Calcium [Lipitor] 80 mg PO DAILY 01/20/18 02/17/19 Lisinopril [Zestril] 10 mg PO DAILY 01/20/18 02/17/19 Venlafaxine HCl [Venlafaxine HCl 150 mg PO DAILY 01/20/18 02/17/19 ER] Insulin Lispro [Humalog] 2 - 15 unit SUBQ ACHS 04/02/18 02/17/19 Famotidine 20 mg PO BID 09/04/18 02/17/19 Cyclobenzaprine [Flexeril] 10 mg PO TID PRN 10 Days #30 tablet 09/06/18 02/17/19 Dicyclomine [Bentyl] 20 mg PO QID 10 Days #80 capsule 09/06/18 02/17/19 Ezetimibe [Zetia] 10 mg PO DAILY #30 tablet 09/06/18 02/17/19 Gabapentin 200 mg PO TID #60 capsule 09/06/18 02/17/19 HYDROcodone/ACET 10/325 [[place] 10 1 tab PO Q4HR PRN #40 tablet 09/06/18 02/17/19 mg/325 mg] Insulin Glargine [Lantus Solostar] 35 unit SQ QPM #1 pen 09/06/18 02/17/19 LORazepam [Ativan] 1 mg PO BID PRN #60 tablet 09/06/18 02/17/19 Metoprolol Succinate 25 mg PO BID #60 tab.er.24h 09/06/18 02/17/19 Neutra-Phos [K-Phos Neutral] 500 mg PO BIDWM 10 Days #40 tablet 09/06/18 02/17/19 Nitroglycerin [Nitrostat] 0.4 mg SL Q5MIN PRN #15 tablet 09/06/18 02/17/19 Fluconazole [Diflucan] 150 mg PO ONCE #1 tablet 02/16/19 02/17/19 Nystatin Cream [Mycostatin Cream] 1 applic TOP BID #30 g 02/16/19 02/17/19 Ondansetron Odt [Zofran Odt] 4 mg TL Q6H PRN #10 tablet 02/16/19 02/17/19 Furosemide [Lasix] 80 mg PO DAILY 02/18/19 02/18/19 Clindamycin HCl [Clindamycin 300MG 300 mg PO TID #18 capsule 02/20/19 CAP] - PHYSICAL EXAM AT DISCHARGE General Appearance: positive: No acute distress, Alert, Other (5 foot 4 inch, 103.5 Kg with body odor. She has been reluctant to take a bath during this admission and I've asked her to take once before discharge. ) Eyes Bilateral: positive: PERRL, EOMI ENT: positive: No signs of dehydration Neck: negative: No JVD, Stiff neck, Carotid bruit Respiratory: positive: Chest non-tender, Breath sounds nml. negative: Wheezes, Rales, Rhonchi Cardiovascular: positive: Regular rate & rhythm. negative: Gallop/S4, Friction rub Peripheral Pulses: positive: 1+ Abdomen: positive: Non-tender, No organomegaly, Nml bowel sounds, No distention Skin: positive: Other (resolving js intertrigo under panus of breasts, abdominal wall and mild in groin. ) Extremities: positive: Full ROM, No pedal edema Neurologic/Psychiatric: positive: Oriented x3, CN's nml (2-12), Motor nml, Sensation nml - LABS Result Diagrams: 02/19/19 05:17 02/19/19 05:17 - FOLLOW UP Follow Up: Carlie Staton MD - TIME SPENT Time Spent in Discharge (Minutes): 40
== END 2019-02-20 14:00 | disposition home or self-care (01) | DRG 639 ==
LOC: EDBD → EDUNIT# → ED 07:33 → ICU 08:56 → UNDOADMIN 08:56 → MS2 02-19 14:47 → ICU 02-19 14:47 → UNDODISIN 02-20 14:00
PROVIDERS: ADMIT Specialist; ATTEND Specialist
DX: E10.10 Type 1 diabetes mellitus with ketoacidosis without coma (principal); E10.42 Type 1 diabetes mellitus with diabetic polyneuropathy; R07.89 Other chest pain; E78.00 Pure hypercholesterolemia, unspecified; I49.9 Cardiac arrhythmia, unspecified; I49.5 Sick sinus syndrome; D75.89 Other specified diseases of blood and blood-forming organs; I25.10 Atherosclerotic heart disease of native coronary artery without angina pectoris; I11.0 Hypertensive heart disease with heart failure; I50.9 Heart failure, unspecified; E03.9 Hypothyroidism, unspecified; K21.9 Gastro-esophageal reflux disease without esophagitis; F31.9 Bipolar disorder, unspecified; F41.0 Panic disorder [episodic paroxysmal anxiety]; F43.10 Post-traumatic stress disorder, unspecified; F40.240 Claustrophobia; M10.9 Gout, unspecified; G89.29 Other chronic pain; M54.9 Dorsalgia, unspecified; L02.12 Furuncle of neck; L02.13 Carbuncle of neck; B37.2 Candidiasis of skin and nail; R35.0 Frequency of micturition; R39.15 Urgency of urination; R30.0 Dysuria; E66.01 Morbid (severe) obesity due to excess calories; F41.9 Anxiety disorder, unspecified; Z68.39 Body mass index [BMI] 39.0-39.9, adult; R10.9 Unspecified abdominal pain; Z95.0 Presence of cardiac pacemaker; Z79.4 Long term (current) use of insulin; Z79.82 Long term (current) use of aspirin; Z79.891 Long term (current) use of opiate analgesic; Z86.711 Personal history of pulmonary embolism; Z87.01 Personal history of pneumonia (recurrent); Z90.49 Acquired absence of other specified parts of digestive tract; Z72.89 Other problems related to lifestyle
CPT/HCPCS: 36415; 80048; 81001; 81025; 82009; 82040; 82330; 82803; 82947; 83036; 83735; 84100; 84484; 85025; 87150; 93005; 96360; 99285; 99291; A9270; J0131; J1815; J7120; 80306; 81003; 87086

== ENCOUNTER 2019-02-24 08:00 | Outpatient (CLI) | payer MEDICARE, MEDICAID | END 2019-02-24 23:59 | disposition home or self-care (01) | LOC: LAB.R 08:00 | PROVIDERS: ATTEND Family Medicine | DX: L02.211 Cutaneous abscess of abdominal wall (principal); L02.11 Cutaneous abscess of neck | CPT/HCPCS: 87070; 87075; 87076; 87147; 87186; 87205 ==

== ENCOUNTER 2019-03-26 12:21 | Observation (INO) | payer MEDICARE, MEDICAID ==
[2019-03-26] MEDS ORDERED: SODIUM CHLORIDE 0.9% 1,000 ML IV ONE (12:54)
[2019-03-26] MEDS ORDERED: HYDROmorphone 1 MG/ML CARPUJECT IVP STA (12:54)
--- NOTE | 2019-03-26 12:55 | ED Physician Documentation ---
History of Present Illness - Stated complaint Stated Complaint: BLOOD SUGAR - Chief complaint Chief Complaint: General - History obtained from History obtained from: Patient - History of Present Illness Timing: Other (38-year-old woman with long-standing diabetes had some troubles with recent abscesses, not MRSA but regular staff per her. Over the last few days she has had a painful lump growing under the jaw just to the right. And uncontrolled blood sugars now up into the 500s despite taking extra doses of insulin.) Review of Systems Ten Systems: 10 systems reviewed and negative Constitutional: denies: Fever, Chills Nose: denies: Rhinorrhea / runny nose, Congestion Throat: denies: Sore throat Cardiac: denies: Chest pain / pressure, Palpitations Respiratory: denies: Dyspnea, Cough PD PAST MEDICAL HISTORY - Past Medical History Cardiovascular: Congestive heart failure, Hypertension, High cholesterol, Deep vein thrombosis, Pulmonary embolism, Arrhythmia, Other Respiratory: Pneumonia, Other Neuro: Peripheral neuropathy Endocrine/Autoimmune: Type 1 diabetes, HyPOthyroidism, Other GI: GERD MANAGER CARDIOVASCULAR: Endometriosis, Fibroids, Other : None HEENT: None Psych: Depression, Anxiety, Bipolar disorder, Panic attacks, Post traumatic stress disorder, Claustrophobia Musculoskeletal: Gout, Chronic back pain Derm: Other - Past Surgical History Past Surgical History: Yes General: Cholecystectomy, Appendectomy, Hiatal hernia repair, Colonoscopy, EGD /MANAGER CARDIOVASCULAR: Oophrectomy, Other Cardiovascular: Pacemaker, Other HEENT: Myringotomy (tubes), Tonsil/Adenoidectomy, Other - Present Medications Home Medications: Ambulatory Orders Medication Instructions Recorded Confirmed Insulin Glargine,Hum.rec.anlog 28 units SUBQ DAILY 09/05/13 02/17/19 [Lantus Solostar] Amitriptyline [Elavil] 50 mg PO QPM 07/03/14 02/17/19 Aspirin [Aspirin EC] 81 mg PO DAILY 10/08/17 02/17/19 Levothyroxine Sodium 275 mcg PO QDAC 10/08/17 02/17/19 Atorvastatin Calcium [Lipitor] 80 mg PO DAILY 01/20/18 02/17/19 Lisinopril [Zestril] 10 mg PO DAILY 01/20/18 02/17/19 Venlafaxine HCl [Venlafaxine HCl 150 mg PO DAILY 01/20/18 02/17/19 ER] Insulin Lispro [Humalog] 2 - 15 unit SUBQ ACHS 04/02/18 02/17/19 Famotidine 20 mg PO BID 09/04/18 02/17/19 Cyclobenzaprine [Flexeril] 10 mg PO TID PRN 10 Days #30 tablet 09/06/18 02/17/19 Dicyclomine [Bentyl] 20 mg PO QID 10 Days #80 capsule 09/06/18 02/17/19 Ezetimibe [Zetia] 10 mg PO DAILY #30 tablet 09/06/18 02/17/19 Gabapentin 200 mg PO TID #60 capsule 09/06/18 02/17/19 HYDROcodone/ACET 10/325 [[place] 10 1 tab PO Q4HR PRN #40 tablet 09/06/18 02/17/19 mg/325 mg] Insulin Glargine [Lantus Solostar] 35 unit SQ QPM #1 pen 09/06/18 02/17/19 LORazepam [Ativan] 1 mg PO BID PRN #60 tablet 09/06/18 02/17/19 Metoprolol Succinate 25 mg PO BID #60 tab.er.24h 09/06/18 02/17/19 Neutra-Phos [K-Phos Neutral] 500 mg PO BIDWM 10 Days #40 tablet 09/06/18 02/17/19 Nitroglycerin [Nitrostat] 0.4 mg SL Q5MIN PRN #15 tablet 09/06/18 02/17/19 Fluconazole [Diflucan] 150 mg PO ONCE #1 tablet 02/16/19 02/17/19 Nystatin Cream [Mycostatin Cream] 1 applic TOP BID #30 g 02/16/19 02/17/19 Ondansetron Odt [Zofran Odt] 4 mg TL Q6H PRN #10 tablet 02/16/19 02/17/19 Furosemide [Lasix] 80 mg PO DAILY 02/18/19 02/18/19 Clindamycin HCl [Clindamycin 300MG 300 mg PO TID #18 capsule 02/20/19 CAP] - Allergies Allergies/Adverse Reactions: Allergies Allergy/AdvReac Type Severity Reaction Status Date / Time sulfamethoxazole Allergy Intermediate rash/ Verified 03/26/19 12:31 [From Bactrim] adhesive Allergy Rash Verified 03/26/19 12:31 amoxicillin [Amoxicillin] Allergy unknown Verified 03/26/19 12:31 oxycodone [Oxycodone] AdvReac Intermediate hallucinate, Verified 03/26/19 12:31 vomit promethazine HCl * AdvReac Mild Nausea Verified 03/26/19 12:31 [From Phenergan] - Social History Does the pt smoke?: No Smoking Status: Never smoker Does the pt drink ETOH?: No Does the pt have substance abuse?: No - Immunizations Immunizations are current?: Yes - POLST Patient has POLST: No POLST Status: Full Code PD ED PE NORMAL - Vitals Vital signs reviewed: Yes - General General: Alert and oriented X 3, No acute distress - HEENT HEENT: Other (She does have poor dentition, but they do not seem to be the source of the submandibular abscess, there is no swelling at the gumline or submandibular edema.) - Neck Neck: Supple, no meningeal sign, No bony TTP, Other (She has a large abscess may be 3 cm in the soft tissue of the submandibular area just the right of midline.) - Cardiac Cardiac: RRR, No murmur - Respiratory Respiratory: No respiratory distress, Clear bilaterally - Abdomen Abdomen: Non tender - Derm Derm: Normal color, Warm and dry - Neuro Neuro: Alert and oriented X 3, Normal speech - Psych Psych: Normal mood, Normal affect Results - Vitals Vitals: Vital Signs - 24 hr 03/26/19 03/26/19 03/26/19 12:31 13:05 13:30 Temperature 36.4 C L 37.1 C Heart Rate 106 H 97 97 Respiratory 20 17 15 Rate Blood Pressure 173/89 H 153/74 H 153/74 H O2 Saturation 98 98 98 03/26/19 03/26/19 15:22 15:30 Temperature 37.2 C Heart Rate 94 98 Respiratory 16 18 Rate Blood Pressure 154/68 H 150/69 H O2 Saturation 98 98 Oxygen O2 Source Room air - Labs Labs: Laboratory Tests 03/26/19 03/26/19 03/26/19 12:30 13:29 13:29 WBC 8.2 RBC 3.73 L Hgb 12.0 Hct 37.5 MCV 100.5 H MCH 32.2 H MCHC 32.0 RDW 13.4 Plt Count 233 MPV 9.8 Neut # (Auto) 7.0 H Lymph # (Auto) 0.6 L Sandoval # (Auto) 0.5 Eos # (Auto) 0.1 Baso # (Auto) 0.0 Absolute Nucleated RBC 0.00 Nucleated RBC % 0.0 VBG pH VBG pCO2 VBG pO2 VBG HCO3 VBG Total CO2 VBG O2 Saturation VBG Base Excess Sodium 134 L Potassium 4.6 Chloride 97 L Carbon Dioxide 17 L Anion Gap 20.0 H BUN 14 Creatinine 0.9 Estimated GFR (MDRD) 69 L Glucose 518 H* POC Whole Bld Glucose 523 H* Calcium 8.2 L Total Bilirubin 1.8 H AST 18 ALT 16 Alkaline Phosphatase 161 H Total Protein 7.0 Albumin 3.0 L Globulin 4.0 Albumin/Globulin Ratio 0.8 L Lipase 21 L Serum Ketones SMALL H 03/26/19 13:29 WBC RBC Hgb Hct MCV MCH MCHC RDW Plt Count MPV Neut # (Auto) Lymph # (Auto) Sandoval # (Auto) Eos # (Auto) Baso # (Auto) Absolute Nucleated RBC Nucleated RBC % VBG pH 7.387 VBG pCO2 26.8 L VBG pO2 76.8 H VBG HCO3 15.7 L VBG Total CO2 16.6 L VBG O2 Saturation 95.6 H VBG Base Excess -7.6 L Sodium Potassium Chloride Carbon Dioxide Anion Gap BUN Creatinine Estimated GFR (MDRD) Glucose POC Whole Bld Glucose Calcium Total Bilirubin AST ALT Alkaline Phosphatase Total Protein Albumin Globulin Albumin/Globulin Ratio Lipase Serum Ketones - Rads (name of study) Neck soft tissue sono Radiology: EMP read contemporaneously (Complex fluid collection in the right submental region consistent with abscess.) Procedures - General procedure General procedure: She was difficult for IV access, she always is. We had one small IV in her but given her needs we needed a second IV and I personally placed a 20-gauge Peripheral IV in the left external jugular vein after ChloraPrep. - Abscess I&D (location) Submandi bular Preparation: Confirmed with ultrasound, Betadine, Lidocaine 1%, Other (versed 2mg IVP) Incision: Incised with scalpel, Purulent drainage, Loculations broken, Packed, Culture obtained Other: Pt tolerated well, Dressing applied, Antibiotic prescribed PD MEDICAL DECISION MAKING - ED course ED course: 38-year-old woman with history of poorly controlled diabetes and multiple complications presents with mild DKA probably's started with a submandibular abscess. The abscess has a cutaneous appearance, it does not seem related to te eth. Recent abscesses with MSSA. She was given Levaquin after blood cultures. Her DKA was treated with an insulin drip and fluids. The abscess was incised and drained and packed. Spoke with Dr. Mahoney for admission at 3:45 PM. Departure - Departure Disposition: ED Place in Observation Clinical Impression: DKA, type 1, not at goal, Submandibular abscess Condition: Serious
[2019-03-26 13:32] LABS: BASOPHILS % (AUTO) 0.5 %; EOSINOPHILS # (AUTO) 0.1 10^3/uL (0.0-0.7); EOSINOPHILS % (AUTO) 0.6 %; LYMPHOCYTES # (AUTO) 0.6 10^3/uL (1.5-3.5); LYMPHOCYTES % (AUTO) 7.3 %; MEAN CORPUSCULAR HEMOGLOBIN 32.2 pg (27.0-31.0); MEAN CORPUSCULAR VOLUME 100.5 fL (81.0-99.0); MEAN PLATELET VOLUME 9.8 fL (7.9-10.8); MONOCYTES # (AUTO) 0.5 10^3/uL (0.0-1.0); MONOCYTES % (AUTO) 6.2 %; PLT - PLATELET COUNT 233 10^3/uL (130-450); RED BLOOD COUNT 3.73 10^6/uL (4.20-5.40); RED CELL DISTRIBUTION WIDTH 13.4 % (12.0-15.0); WHITE BLOOD COUNT 8.2 x10^3/uL (4.8-10.8)
[2019-03-26 13:37] LABS: VBG PCO2 26.8 mmHg (41-51); VBG PH 7.387 (7.31-7.41); VBG PO2 76.8 mmHg (25-47); VBG TOTAL CO2 16.6 mmol/L (24-29)
[2019-03-26 13:38] LABS: VBG BASE EXCESS -7.6 mmol/L (-2 - +2)
[2019-03-26 13:39] LABS: KETONES, SERUM (ACETEST) SMALL (NEGATIVE)
[2019-03-26 13:56] LABS: ALBUMIN/GLOBULIN RATIO 0.8 (1.0-2.2); ALKALINE PHOSPHATASE 161 IU/L (42-121); ALT ALANINE AMINOTRANSFERASE 16 IU/L (10-60); AST ASPARTATE AMINOTRANSFERASE 18 IU/L (10-42); BILIRUBIN,TOTAL 1.8 mg/dL (0.2-1.0); BUN - BLOOD UREA NITROGEN 14 mg/dL (6-20); CALCIUM 8.2 mg/dL (8.5-10.3); CARBON DIOXIDE - CO2 17 mmol/L (21-32); CHLORIDE 97 mmol/L (101-111); CREATININE 0.9 mg/dL (0.4-1.0); GFR - MDRD 69 (>89); LIPASE 21 U/L (22-51); SODIUM 134 mmol/L (135-145)
[2019-03-26] MEDS ORDERED: INSULIN REGULAR HUMAN 100 UNIT/1 ML 10 ML MDV IVP STA (13:56)
[2019-03-26 13:57] LABS: GLUCOSE 518 mg/dL (70-100)
[2019-03-26] MEDS ORDERED: INSULIN REGULAR HUMAN 100 UNIT in SODIUM CHLORIDE 0.9% 100ML 99 ML IV STA (13:57)
[2019-03-26] MEDS ORDERED: NS W/40 MEQ KCL 1,000 ML IV SCH (14:00)
[2019-03-26] MEDS ORDERED: levoFLOXacin 750 MG/150 ML 750 MG/150 ML BAG IV ONE (14:14)
--- NOTE | 2019-03-26 15:01 | Ultrasound Report ---
Reason: eval submandibular abscess Procedure Date: 03/26/2019 Accession Number: [id number] / [id number] Procedure: US - Head or Neck Soft Tissue CPT Code: FULL RESULT: EXAM: NECK ULTRASOUND EXAM DATE: 03/26/2019 02:27 PM. CLINICAL HISTORY: Eval submandibular abscess. Right inferior/lateral chin pain and swelling since 03/23/2019. Worsening and growing. Dysphagia today. COMPARISON: None. TECHNIQUE: Real-time sonographic imaging was performed by the electronics specialist utilizing color-flow. Multiple primary care sales representative static images were saved for review. FINDINGS: At the site of palpable abnormality in the right submental region, there is a subcutaneous complex fluid collection measuring 1.6 x 0.7 x 1.7 cm. The fluid collection is located medial to the right submandibular gland. The fluid collection is 4 mm deep to the skin surface. An irregular septation is present. There is peripheral hyperemia and edema. The right submandibular gland is normal. No submandibular gland fluid collection, mass, or ductal dilatation. IMPRESSION: Complex fluid collection in the right submental region consistent with an abscess. RADIA
[2019-03-26] MEDS ORDERED: MIDAZOLAM 2 MG/2 ML VIAL IVP STA (15:23)
[2019-03-26] MEDS ORDERED: BUFFERED LIDOCAINE 10 ML SYRINGE SUBQ STA (15:23)
[2019-03-26] MEDS ORDERED: ZOLPIDEM 5 MG TABLET PO PRN (15:52)
[2019-03-26] MEDS ORDERED: PROCHLORPERAZINE 10 MG/2 ML VIAL IVP PRN (15:52)
[2019-03-26] MEDS ORDERED: SODIUM CHLORIDE FLUSH 0.9% 10 ML SYRINGE IVP PRN ×2 (15:52)
[2019-03-26] MEDS ORDERED: ACETAMINOPHEN 325 MG TABLET PO PRN (15:52)
[2019-03-26] MEDS ORDERED: SODIUM CHLORIDE 0.9% 1,000 ML IV SCH (16:00)
[2019-03-26] MEDS ORDERED: LORazepam 1 MG TABLET PO PRN (16:10)
[2019-03-26] MEDS ORDERED: KETOROLAC 30 MG/ML VIAL IVP STA (16:25)
[2019-03-26 16:31] LABS: KETONES, SERUM (ACETEST) SMALL (NEGATIVE)
[2019-03-26 16:34] LABS: BUN - BLOOD UREA NITROGEN 10 mg/dL (6-20); CALCIUM 7.6 mg/dL (8.5-10.3); CARBON DIOXIDE - CO2 16 mmol/L (21-32); CHLORIDE 103 mmol/L (101-111); CREATININE 0.8 mg/dL (0.4-1.0); GFR - MDRD 79 (>89); GLUCOSE 250 mg/dL (70-100); MAGNESIUM 1.7 mg/dL (1.7-2.8); SODIUM 136 mmol/L (135-145)
[2019-03-26 16:43] LABS: HB2 TOTAL 11.6 g/dL; HEMOGLOBIN A1C 1.29 g/dL; HEMOGLOBIN A1C % 12.3 % (4.6-6.2)
[2019-03-26 16:47] LABS: GLUCOSE, URINE (UA) >=1000 mg/dL (NEGATIVE); KETONES,URINE (UA) >=80 mg/dL (NEGATIVE); LEUKOCYTE ESTERASE, URINE NEGATIVE (NEGATIVE); NITRITE,URINE NEGATIVE (NEGATIVE); OCCULT BLOOD,URINE LARGE (NEGATIVE); PH,URINE 5.5 PH (5.0-7.5); PROTEIN,URINE NEGATIVE (NEGATIVE); UROBILINOGEN,URINE 0.2 (NORMAL) E.U./dL (NORMAL)
[2019-03-26 16:53] LABS: BILIRUBIN,URINE NEGATIVE (NEGATIVE); CLARITY,URINE CLEAR (CLEAR); HCG UR QUAL NEGATIVE; ICTOTEST,URINE NEGATIVE
[2019-03-26 16:56] LABS: BACTERIA,URINE None Seen /HPF (None Seen); RBC,URINE 0-5 /HPF (0-5); SQUAMOUS EPITHELIAL CELL,UR FEW Squamous (<= Few); YEAST,URINE PRESENT
[2019-03-26] MEDS ORDERED: INSULIN REGULAR HUMAN 100 UNIT in SODIUM CHLORIDE 0.9% 100ML 99 ML IV SCH (17:00)
[2019-03-26] MEDS ORDERED: MAGNESIUM SULFATE 2 GRAM 2 GM/50 ML BAG IV ONE (17:38)
[2019-03-26 17:41] LABS: KETONES, SERUM (ACETEST) SMALL (NEGATIVE)
[2019-03-26 17:46] LABS: BUN - BLOOD UREA NITROGEN 10 mg/dL (6-20); CALCIUM 7.8 mg/dL (8.5-10.3); CARBON DIOXIDE - CO2 20 mmol/L (21-32); CHLORIDE 105 mmol/L (101-111); CREATININE 0.7 mg/dL (0.4-1.0); GFR - MDRD 93 (>89); GLUCOSE 155 mg/dL (70-100); MAGNESIUM 1.8 mg/dL (1.7-2.8); SODIUM 138 mmol/L (135-145)
[2019-03-26] MEDS: SODIUM CHLORIDE FLUSH 0.9% 10 ML SYRINGE IVP SCH ×3 (18:00→21:12)
[2019-03-26] MEDS: HYDROmorphone 1 MG/ML CARPUJECT IVP PRN ×2 (18:01→21:12)
[2019-03-26] MEDS ORDERED: POTASSIUM PHOSPHATE 21 MMOL in SODIUM CHLORIDE 0.9% 250 ML IV ONE (18:05)
[2019-03-26] MEDS ORDERED: MAGNESIUM SULFATE 2 GRAM 2 GM/50 ML BAG IV SCH (18:30)
[2019-03-26] MEDS ORDERED: POTASSIUM PHOSPHATE 21 MMOL in SODIUM CHLORIDE 0.9% 250 ML IV SCH (18:30)
[2019-03-26] MEDS: IBUPROFEN 600 MG TABLET PO SCH ×2 (18:47→23:59)
[2019-03-26] MEDS ORDERED: D5NS W/20 MEQ KCL 1,000 ML IV SCH (19:00)
[2019-03-26] MEDS: HYDROcod/ACETAM 5/325 MG TABLET PO PRN (20:05)
[2019-03-26 20:30] LABS: KETONES, SERUM (ACETEST) NEGATIVE (NEGATIVE)
[2019-03-26 20:34] LABS: BUN - BLOOD UREA NITROGEN 11 mg/dL (6-20); CALCIUM 7.6 mg/dL (8.5-10.3); CARBON DIOXIDE - CO2 24 mmol/L (21-32); CHLORIDE 107 mmol/L (101-111); CREATININE 0.9 mg/dL (0.4-1.0); GFR - MDRD 69 (>89); GLUCOSE 150 mg/dL (70-100); MAGNESIUM 2.4 mg/dL (1.7-2.8); SODIUM 140 mmol/L (135-145)
--- NOTE | 2019-03-26 20:45 | HISTORY & PHYSICAL EXAMINATION ---
DATE OF SERVICE: 03/26/2019 Physician: Lexie Mahoney MD HISTORY OF PRESENT ILLNESS: This is a 38-year-old white female with a history of diabetes requiring insulin, history of hypertension, hyperlipidemia, prior pulmonary embolism and DVT, hypothyroidism, anxiety and depression, as well as bipolar disorder and PTSD. Patient has had problems with recent skin abscesses: One was in her upper left posterior neck, most recently in the middle of her chest for which she needed management as an inpatient and then a second course of antibiotics, changed to a third course as an outpatient. Patient describes a 3-day history of a pimple under her mandible, which started increasing in size despite putting a Band-Aid on it and warm soaks, and today it enlarged quickly to spread to the edge of her chin and down to her "Zackery's apple," and she noticed some difficulty swallowing. Also, in the last 24 hours, her blood glucose has gone into ranges of 200s, then 300s, and by the time she was in the emergency room, it is in the 500s. The area is described as an abscess by the emergency room doctor, and he was able to incise and drain it, and it is now packed and bandaged. Her labs show that she has positive serum ketones (small), elevated anion gap, and glucose of 523, but pH is 7.38; tus she is in mild diabetic ketoacidosis. PAST MEDICAL HISTORY 1. Type 1 diabetes. 2. Hypothyroidism. 3. DVT and PE. 4. Hypertension. 5. Hyperlipidemia. 6. Anxiety and depression. 7. PTSD. 8. Bipolar disorder 9. Prior DKA admissions. 10. Prior abscesses. ALLERGIES 1. SULFA 2. AMOXICILLIN. 3. OXYCODONE, but other type of codeines are fine, like Vicodin. 4. ALLERGY TO PHENERGAN. MEDICATIONS 1. Lisinopril 40 mg daily. 2. Bentyl 10 mg before meals and at bedtime. 3. Toprol 50 mg daily. 4. NovoLog insulin 15 to 30 units t.i.d. with meals. 5. Lasix 80 mg daily. 6. Lipitor 80 mg every night. 7. Levothyroxine 275 mcg daily. 8. Ativan 1 mg q.p.m. p.r.n. 9. Lantus insulin 30 units every night and 27 units every morning. 10. Gabapentin 200 t.i.d. 11. Famotidine 20 mg b.i.d. 12. Elavil 70 mg every night. 13. Venlafaxine 150 mg daily. REVIEW OF SYSTEMS: She has had no fever. She denies a cough, sputum production, or dyspnea. Comprehensive review of systems was performed, the pertinent positives are listed, the rest are negative. SOCIAL HISTORY: Negative alcohol use, negative smoking, negative illicit drug use. FAMILY HISTORY: No inherited diseases. PHYSICAL EXAMINATION GENERAL: White female who is in mild distress from the pain of the recent incision and drainage. VITAL SIGNS: Blood pressure 150s/70s, heart rate 101 in sinus tachycardia, no fever, room air saturation 99%. HEENT: Reveals moist oral mucosa. She has a large bandage over the lower mandible and anterior neck. CHEST: Clear at the anterior bases. HEART: Sounds are normal, tachycardic, no murmur. ABDOMEN: Soft, positive bowel sounds, nontender. EXTREMITIES: The legs have no clubbing, cyanosis, or edema. NEUROLOGIC: Intact. SKIN: A small, dry eschar of the mid anterior chest wall. LABORATORY DATA: A pH showed 7.38. White count 8.2, hemoglobin 12, platelet count 233. Sodium 134, potassium 4.6, BUN 14, creatinine 0.9, glucose 523, magnesium 1.7. Normal liver tests. High sensitivity troponin 10, which is normal. Lipase normal. Urinalysis showed high glucose, high ketones, large occult blood, and no bacteria, but yeast were seen. Her serum ketones are positive but are small. IMPRESSION 1. Mild diabetic ketoacidosis. 2. Mandibular abscess, which is likely the cause of the worsened glucose control. 3. History of hypertension. 4. History of hypothyroidism. 5. History of depression and posttraumatic stress disorder. PLAN: Place patient in Observation status in the ICU. Begin DKA protocol with insulin drip, sodium chloride IV hydration, then switch to D5 with crystalloids and possibly potassium as the glucose is improved to below 200. Follow her electrolytes, glucose, serum ketones every 2 to 4 hours. Continue with the IV antibiotic that was begun in the ER using Levaquin 750 mg IV daily. Await culture of blood, wound culture if it was sent, and a urine culture. Continue her other pre-hospital medications except the diuretic, while she needs hydartion. DEEP VENOUS THROMBOSIS PROPHYLAXIS: ARMIN stockings. CODE STATUS: FULL CODE. ATTESTATION: Patient is expected to be discharged or transferred to another facility within 96 hours: Yes. cc: Amisha Staton DO TD: 03/26/2019 18:52 MTDD
[2019-03-26] MEDS: DICYCLOMINE 10 MG CAPSULE PO SCH (20:58)
[2019-03-26] MEDS: INSULIN ASPART 300 UNIT/3 ML PEN SUBQ SCH (20:58)
[2019-03-26] MEDS: FAMOTIDINE 20 MG TABLET PO SCH (20:58)
[2019-03-26] MEDS ORDERED: ATORVASTATIN 40 MG TABLET PO SCH (21:00)
[2019-03-26] MEDS ORDERED: INSULIN GLARGINE 300 UNIT/3 ML PEN SUBQ SCH (21:00)
[2019-03-26] MEDS ORDERED: AMITRIPTYLINE 25 MG TABLET PO SCH (21:00)
[2019-03-26 21:29] LABS: ALBUMIN 2.6 g/dL (3.2-5.5); GLUCOSE 169 mg/dL (70-100)
[2019-03-26 21:30] LABS: KETONES, SERUM (ACETEST) NEGATIVE (NEGATIVE)
[2019-03-26] MEDS: GABAPENTIN 100 MG CAPSULE PO SCH (22:01)
[2019-03-26] MEDS: SODIUM CHLORIDE 0.9% 1,000 ML IV SCH (22:24)
[2019-03-27] MEDS: HYDROmorphone 1 MG/ML CARPUJECT IVP PRN ×3 (03:24→09:51)
[2019-03-27 05:02] LABS: BASOPHILS % (AUTO) 0.3 %; EOSINOPHILS # (AUTO) 0.1 10^3/uL (0.0-0.7); EOSINOPHILS % (AUTO) 1.2 %; HGB - HEMOGLOBIN 11.3 g/dL (12.0-16.0); LYMPHOCYTES # (AUTO) 1.1 10^3/uL (1.5-3.5); LYMPHOCYTES % (AUTO) 18.5 %; MEAN CORPUSCULAR HEMOGLOBIN 32.3 pg (27.0-31.0); MEAN CORPUSCULAR VOLUME 104.3 fL (81.0-99.0); MEAN PLATELET VOLUME 9.9 fL (7.9-10.8); MONOCYTES # (AUTO) 0.6 10^3/uL (0.0-1.0); MONOCYTES % (AUTO) 10.3 %; NEUTROPHILS # (AUTO) 4.1 10^3/uL (1.5-6.6); NEUTROPHILS % (AUTO) 69.5 %; PLT - PLATELET COUNT 208 10^3/uL (130-450); RED CELL DISTRIBUTION WIDTH 13.6 % (12.0-15.0)
[2019-03-27 05:07] LABS: CALCIUM 7.6 mg/dL (8.5-10.3); CREATININE 0.9 mg/dL (0.4-1.0); MAGNESIUM 2.5 mg/dL (1.7-2.8)
[2019-03-27] MEDS: IBUPROFEN 600 MG TABLET PO SCH ×2 (06:21→11:29)
[2019-03-27] MEDS: DICYCLOMINE 10 MG CAPSULE PO SCH ×2 (06:21→11:29)
[2019-03-27] MEDS: SODIUM CHLORIDE FLUSH 0.9% 10 ML SYRINGE IVP SCH ×4 (06:22→09:29)
[2019-03-27] MEDS: GABAPENTIN 100 MG CAPSULE PO SCH ×2 (06:22→13:42)
[2019-03-27] MEDS ORDERED: LEVOTHYROXINE 75 MCG TABLET PO SCH (07:00)
[2019-03-27] MEDS ORDERED: LEVOTHYROXINE 100 MCG TABLET PO SCH (07:00)
[2019-03-27] MEDS: INSULIN ASPART 300 UNIT/3 ML PEN SUBQ SCH ×2 (07:56→11:54)
[2019-03-27] MEDS ORDERED: POLYETHYLENE GLYCOL 3350 17 GM PACKET PO SCH (09:00)
[2019-03-27] MEDS ORDERED: VENLAFAXINE ER 75 MG CAPSULE PO SCH (09:00)
[2019-03-27] MEDS ORDERED: METOPROLOL SUCCINATE 50 MG TABLET PO SCH (09:00)
--- NOTE | 2019-03-27 09:22 | Discharge Plan ---
Discharge Plan Problem Reviewed?: Yes Disposition: Home, Self Care Condition: Stable Prescriptions: Hydrocodone/Acetaminophen [Vicodin 5-300 mg Tablet] 1 each PO TID PRN #10 tablet PRN Reason: Severe Pain levoFLOXacin [Levofloxacin] 750 mg PO DAILY 12 Days tablet Diet: Diabetic Activity Restrictions: Activity as Tolerated Shower Restrictions: No Driving Restrictions: No Instruction Topics: Drainage Abscess Health Concerns: Managed in ICU for DKA and abscess under your chin. Plan of Treatment: The abscess was drained. Two doses of iv antibiotics were given and plan is to finish a course of oral antibiotics, take for 8 more days. Follow instructions from Dr Conor Lisa (oral and facial surgeon), and see him in follow-up at his office on , . Call his office at [phone]. Care Goals: Goals are improved Diabetic control and healing of submandibular infection. Assessment: The patient is agreeable with the plan. No Smoking: If you smoke, Please STOP! Call for help. Follow-up with: Amisha Staton DO [Primary Care Provider] -
[2019-03-27] MEDS: HYDROcod/ACETAM 5/325 MG TABLET PO PRN ×2 (09:24→13:43)
[2019-03-27] MEDS: FAMOTIDINE 20 MG TABLET PO SCH (09:25)
[2019-03-27] MEDS: SODIUM CHLORIDE 0.9% 1,000 ML IV SCH (09:26)
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
--- NOTE | 2019-03-27 13:58 | PROVIDER PROGRESS NOTE ---
Assessment/Plan - Problem List (1) DKA (diabetic ketoacidoses) Assessment/Plan: She was felt to have Mild DKA: elevated anioin gap, elevated glu of 500's and serum ketone presennt (Small), but a norml serum pH of 7.39. DKA resolved with glu 150-200's today and neg serum ketones after approx. 10 hours of iv Insulin drip, saline iv and treating the abscess with iv antibiotics. She can be DCh home today, and resume her usual DM management. (2) Submandibular abscess Assessment/Plan: I requested a consult from Oral and Maxillo-facial surgeon, Dr Conor Lisa. He saw the patient, unbandaged and unpacked the wound, cleaned and rebandaged it and advised po antibiotics with Levoflox 750 mg for 8 more days (a 10 day course) and she is to see him in his office in 2 days. She will be given 3.5 days of Vicodin prn severe pain She will be discharged today with this plan. (3) Hx of essential hypertension Assessment/Plan: Resume usual meds (4) History of hypothyroidism Assessment/Plan: Continue pre-hospital thyroid dose (5) History of depression Assessment/Plan: Continue anti-depressants - Current Meds Current Meds: Current Medications Generic Name Dose Route Start Last Admin Trade Name Freq PRN Reason Stop Dose Admin Hydrocodone Bitart/Acetaminophen 1 tab 03/26/19 18:50 03/27/19 13:43 [place] 5/325 PO 1 tab Q4HR PRN Administration PAIN Amitriptyline HCl 75 mg 03/26/19 21:00 03/26/19 20:58 Elavil PO 75 mg QPM ADALBERTO Administration Atorvastatin Calcium 80 mg 03/26/19 21:00 03/26/19 20:58 Lipitor PO 80 mg QPM ADALBERTO Administration Dicyclomine HCl 10 mg 03/26/19 21:00 03/27/19 11:29 Bentyl PO 10 mg ACHS ADALBERTO Administration Famotidine 20 mg 03/26/19 21:00 03/27/19 09:25 Pepcid PO 20 mg BID ADALBERTO Administration Gabapentin 200 mg 03/26/19 22:00 03/27/19 13:42 Neurontin PO 200 mg TID ADALBERTO Administration Hydromorphone HCl 1 mg 03/26/19 15:52 03/27/19 09:51 Dilaudid Inj Carp IVP 1 mg Q2HR PRN Administration Pain 8 to 10 Levofloxacin 750 mg in 150 mls @ 100 mls/hr 03/27/19 14:00 03/27/19 13:42 Levaquin 750 Mg/150 Ml IV 100 mls/hr Q24H ADALBERTO Administration Sodium Chloride 1,000 mls @ 100 mls/hr 03/26/19 23:00 03/27/19 09:26 Normal Saline 0.9% IV 100 mls/hr .Q10H ADALBERTO Administration Ibuprofen 600 mg 03/26/19 18:19 03/27/19 11:29 Motrin PO 600 mg Q6HR ADALBERTO Administration Insulin Aspart 2 - 10 unit 03/26/19 21:00 03/27/19 11:54 Novolog SUBQ 2 unit 0800,1200,1700,2100 ADALBERTO Administration Protocol Insulin Glargine 32 unit 03/26/19 21:00 03/26/19 20:59 Lantus Solostar SUBQ 32 unit QPM ADALBERTO Administration Levothyroxine Sodium 200 mcg 03/27/19 07:00 03/27/19 06:21 Synthroid PO 200 mcg QDAC ADALBERTO Administration Levothyroxine Sodium 75 mcg 03/27/19 07:00 03/27/19 06:21 Synthroid PO 75 mcg QDAC ADALBERTO Administration Metoprolol Succinate 50 mg 03/27/19 09:00 03/27/19 09:25 Toprol Xl PO 50 mg DAILY ADALBERTO Administration Polyethylene Glycol 17 gm 03/27/19 09:00 03/27/19 09:25 Miralax PO Not Given DAILY ADALBERTO Sodium Chloride 10 ml 03/26/19 17:00 03/27/19 00:00 Normal Saline Flush 0.9% IVP 10 ml 0100,0900,1700 ADALBERTO Administration Sodium Chloride 10 ml 03/26/19 15:52 03/27/19 03:24 Normal Saline Flush 0.9% IVP 10 ml PRN PRN Administration NEEDED PER PROVIDER ORDERS Sodium Chloride 10 ml 03/26/19 17:00 03/27/19 09:29 Normal Saline Flush 0.9% IVP 10 ml 0100,0900,1700 ADALBERTO Administration Venlafaxine HCl 150 mg 03/27/19 09:00 03/27/19 09:25 Effexor Er PO 150 mg DAILY ADALBERTO Administration Zolpidem Tartrate 5 mg 03/26/19 15:52 03/26/19 22:01 Ambien PO 5 mg QPM PRN Administration Insomnia - Lab Result Fish Bone Diagrams: 03/27/19 04:30 03/27/19 04:30 - Additional Planning My Orders: My Active Orders 03/26/19 15:52 Activity Orders [RC] Q2HR Daily Weight [RC] 0600 IO [RC] IOSHIFT Initiate Bowel Care Protocol [RC] .protocol Initiate Bowel Care Protocol [RC] QSHIFT Initiate Line Care Protocol [RC] .protocol Initiate Line Care Protocol [RC] QSHIFT Initiate Personal Care Protoco [RC] .protocol Initiate Personal Care Protoco [RC] .protocol Vital Signs [RC] 0800,1600,0000 Acetaminophen [Tylenol] 650 mg PO Q4HR PRN HYDROmorphone INJ CARP [Dilaudid Inj Carp] 1 mg IVP Q2HR PRN Prochlorperazine Inj [Compazine Inj] 10 mg IVP Q6HR PRN Sodium Chloride Flush 0.9% [Normal Saline Flush 0.9%] 10 ml IVP PRN PRN Sodium Chloride Flush 0.9% [Normal Saline Flush 0.9%] 10 ml IVP PRN PRN Zolpidem [Ambien] 5 mg PO QPM PRN Code Status [OTHERS] Routine Condition of Patient [OTHERS] Routine DVT Prophylaxis [OTHERS] Routine 03/26/19 15:56 Oral Care - Nursing [RC] Routine Oxygen Therapy [RC] .PRN Telemetry- [RC] Q4HR 03/26/19 16:04 Initiate DKA RN Protocol [RC] .protocol Initiate Hypoglycemia Protocol [RC] .protocol Initiate ICU Electrolyte Prot. [RC] .protocol Notify Provider - Specific Ins [RC] PRN 03/26/19 16:10 LORazepam [Ativan] 1 mg PO QPM PRN 03/26/19 17:00 Sodium Chloride Flush 0.9% [Normal Saline Flush 0.9%] 10 ml IVP 0100,0900,1700 Sodium Chloride Flush 0.9% [Normal Saline Flush 0.9%] 10 ml IVP 0100,0900,1700 03/26/19 18:18 ARMIN Roberts [RC] QSHIFT 03/26/19 18:19 Ibuprofen [Motrin] 600 mg PO Q6HR 03/26/19 18:50 HYDROcod/ACETAM 5/325 [[place] 5/325] 1 tab PO Q4HR PRN 03/26/19 21:00 Amitriptyline [Elavil] 75 mg PO QPM Atorvastatin [Lipitor] 80 mg PO QPM Dicyclomine [Bentyl] 10 mg PO ACHS Famotidine [Pepcid] 20 mg PO BID 03/26/19 22:00 Gabapentin [Neurontin] 200 mg PO TID 03/26/19 Dinner Carb-controlled Diet [DIET] 03/27/19 Consult [General Surgery Consult] [CONS] Routine 03/27/19 07:00 Levothyroxine [Synthroid] 200 mcg PO QDAC Levothyroxine [Synthroid] 75 mcg PO QDAC 03/27/19 09:00 Metoprolol Succinate [Toprol Xl] 50 mg PO DAILY Polyethylene Glycol 3350 [Miralax] 17 gm PO DAILY Venlafaxine ER [Effexor ER] 150 mg PO DAILY 03/27/19 09:51 Transfer [Admit \ Transfer \ Status] [RC] .ONCE 03/27/19 10:18 Discharge [RC] .ONCE Initiate Discharge Checklist [RC] .ONCE 03/27/19 14:00 levoFLOXacin 750 MG/150 ML [Levaquin 750 mg/150 ml] 750 mg in 150 ml IV Q24H Subjective - Subjective Patient Reports: Feeling Better Nursing Reports: Other (Requested Dilaudid during wound unbandaged and unpacked) Objective Vital Signs: Vital Signs - 24 hr 03/26/19 03/26/19 03/26/19 15:22 15:30 16:30 Temperature 37.2 C Heart Rate 94 98 101 H Heart Rate [ Monitoring electrodes] Respiratory 16 18 16 Rate Blood Pressure 154/68 H 150/69 H 139/71 H Blood Pressure [Left Brachial artery] Blood Pressure [Right Brachial artery] O2 Saturation 98 98 97 03/26/19 03/26/19 03/26/19 17:00 19:00 21:00 Temperature 36.6 C 36.6 C Heart Rate Heart Rate [ 99 102 H 103 H Monitoring electrodes] Respiratory 20 18 20 Rate Blood Pressure Blood Pressure 149/75 H 123/66 142/70 H [Left Brachial artery] Blood Pressure [Right Brachial artery] O2 Saturation 99 100 98 03/26/19 03/27/19 03/27/19 23:00 00:00 01:00 Temperature 36.6 C 36.9 C Heart Rate Heart Rate [ 101 H 102 H 97 Monitoring electrodes] Respiratory 18 17 14 Rate Blood Pressure Blood Pressure 130/69 137/74 H 112/58 L [Left Brachial artery] Blood Pressure [Right Brachial artery] O2 Saturation 97 98 97 03/27/19 03/27/19 03/27/19 02:00 03:00 05:00 Temperature Heart Rate Heart Rate [ 99 100 97 Monitoring electrodes] Respiratory 15 16 13 Rate Blood Pressure Blood Pressure [Left Brachial artery] Blood Pressure 109/56 L 114/60 113/57 L [Right Brachial artery] O2 Saturation 96 97 98 03/27/19 03/27/19 03/27/19 06:00 07:00 08:00 Temperature 36.6 C 36.4 C L Heart Rate Heart Rate [ 92 95 90 Monitoring electrodes] Respiratory 14 15 16 Rate Blood Pressure Blood Pressure [Left Brachial artery] Blood Pressure 119/64 139/69 H [Right Brachial artery] O2 Saturation 99 99 100 03/27/19 03/27/19 08:01 12:00 Temperature Heart Rate Heart Rate [ 100 Monitoring electrodes] Respiratory 19 Rate Blood Pressure Blood Pressure [Left Brachial artery] Blood Pressure 148/70 H 172/92 H [Right Brachial artery] O2 Saturation 99 Oxygen O2 Source room I&O (Last 24 Hrs): Intake and Output Totals x24h 03/25/19 03/26/19 03/27/19 23:59 23:59 23:59 Intake Total 3132.283 2080 Output Total 950 Balance 3132.283 1130 General: Alert, Oriented x3 HEENT: Mucous membr. moist/pink Neck: Other (BAndaged area submandibullar) Neuro: Non Focal Cardiovascular: Regular rate Respiratory: No respiratory distress Abdomen: Soft Extremities: No edema - Results Results: Laboratory Results WBC 6.0 x10^3/uL (4.8-10.8) 03/27/19 04:30 RBC 3.50 10^6/uL (4.20-5.40) L 03/27/19 04:30 Hgb 11.3 g/dL (12.0-16.0) L 03/27/19 04:30 Hct 36.5 % (37.0-47.0) L 03/27/19 04:30 MCV 104.3 fL (81.0-99.0) H 03/27/19 04:30 MCH 32.3 pg (27.0-31.0) H 03/27/19 04:30 MCHC 31.0 g/dL (32.0-36.0) L 03/27/19 04:30 RDW 13.6 % (12.0-15.0) 03/27/19 04:30 Plt Count 208 10^3/uL (130-450) 03/27/19 04:30 MPV 9.9 fL (7.9-10.8) 03/27/19 04:30 Neut # (Auto) 4.1 10^3/uL (1.5-6.6) 03/27/19 04:30 Lymph # (Auto) 1.1 10^3/uL (1.5-3.5) L 03/27/19 04:30 Rice # (Auto) 0.6 10^3/uL (0.0-1.0) 03/27/19 04:30 Eos # (Auto) 0.1 10^3/uL (0.0-0.7) 03/27/19 04:30 Baso # (Auto) 0.0 10^3/uL (0.0-0.1) 03/27/19 04:30 Absolute Nucleated RBC 0.00 x10^3/uL 03/27/19 04:30 Nucleated RBC % 0.0 /100WBC 03/27/19 04:30 VBG pH 7.387 (7.31-7.41) 03/26/19 13:29 VBG pCO2 26.8 mmHg (41-51) L 03/26/19 13:29 VBG pO2 76.8 mmHg (25-47) H 03/26/19 13:29 VBG HCO3 15.7 mmol/L (23-28) L 03/26/19 13:29 VBG Total CO2 16.6 mmol/L (24-29) L 03/26/19 13:29 VBG O2 Saturation 95.6 % (60-80) H 03/26/19 13:29 VBG Base Excess -7.6 mmol/L (-2 - +2) L 03/26/19 13:29 Sodium 139 mmol/L (135-145) 03/27/19 04:30 Potassium 4.9 mmol/L (3.5-5.0) 03/27/19 04:30 Chloride 105 mmol/L (101-111) 03/27/19 04:30 Carbon Dioxide 24 mmol/L (21-32) 03/27/19 04:30 Anion Gap 10.0 (6-13) 03/27/19 04:30 BUN 13 mg/dL (6-20) 03/27/19 04:30 Creatinine 0.9 mg/dL (0.4-1.0) 03/27/19 04:30 Estimated GFR (MDRD) 69 (>89) L 03/27/19 04:30 Glucose 276 mg/dL (70-100) H 03/27/19 04:30 POC Whole Bld Glucose 169 mg/dL (70 - 100) H 03/27/19 11:34 Glycated Hemoglobin 12.3 % (4.6-6.2) H 03/26/19 16:18 Estim Average Glucose 306 (70-100) H 03/26/19 16:18 Calcium 7.6 mg/dL (8.5-10.3) L 03/27/19 04:30 Phosphorus 3.4 mg/dL (2.5-4.6) 03/27/19 04:25 Magnesium 2.5 mg/dL (1.7-2.8) 03/27/19 04:30 Total Bilirubin 1.8 mg/dL (0.2-1.0) H 03/26/19 13:29 AST 18 IU/L (10-42) 03/26/19 13:29 ALT 16 IU/L (10-60) 03/26/19 13:29 Alkaline Phosphatase 161 IU/L (42-121) H 03/26/19 13:29 Troponin I High Sens 10.0 pg/mL (2.3-14.8) 03/26/19 16:18 Total Protein 7.0 g/dL (6.7-8.2) 03/26/19 13:29 Albumin 2.6 g/dL (3.2-5.5) L 03/26/19 21:05 Globulin 4.0 g/dL (2.1-4.2) 03/26/19 13:29 Albumin/Globulin Ratio 0.8 (1.0-2.2) L 03/26/19 13:29 Lipase 21 U/L (22-51) L 03/26/19 13:29 Urine Color YELLOW 03/26/19 12:38 Urine Clarity CLEAR (CLEAR) 03/26/19 12:38 Urine pH 5.5 PH (5.0-7.5) 03/26/19 12:38 Ur Specific [place] 1.010 (1.002-1.030) 03/26/19 12:38 Urine Protein NEGATIVE mg/dL (NEGATIVE) 03/26/19 12:38 Urine Glucose (UA) >=1000 mg/dL (NEGATIVE) H 03/26/19 12:38 Urine Ketones >=80 mg/dL (NEGATIVE) H 03/26/19 12:38 Urine Occult Blood LARGE (NEGATIVE) H 03/26/19 12:38 Urine Nitrite NEGATIVE (NEGATIVE) 03/26/19 12:38 Urine Bilirubin NEGATIVE (NEGATIVE) 03/26/19 12:38 Urine Urobilinogen 0.2 (NORMAL) E.U./dL (NORMAL) 03/26/19 12:38 Ur Leukocyte Esterase NEGATIVE (NEGATIVE) 03/26/19 12:38 Urine RBC 0-5 /HPF (0-5) 03/26/19 12:38 Urine WBC 0-3 /HPF (0-5) 03/26/19 12:38 Ur Squamous Epith Cells FEW Squamous (<= Few) 03/26/19 12:38 Urine Bacteria None Seen /HPF (None Seen) 03/26/19 12:38 Urine Yeast PRESENT 03/26/19 12:38 Ur Microscopic Review INDICATED 03/26/19 12:38 Urine Culture Comments NOT INDICATED 03/26/19 12:38 Urine HCG, Qual NEGATIVE 03/26/19 12:38 Nasal Screen MRSA (PCR) NEGATIVE (NEGATIVE) 03/26/19 17:00 Serum Ketones NEGATIVE (NEGATIVE) 03/26/19 21:05 - Procedures Procedures: Procedures ENDO EXCISION/DEST OF LESION OR TISSUE OF STOMACH (03/30/14) ENDOSC POLYPECTOMY OF LG INTEST (03/30/14) INSERTION OF INFUSION DEV INTO SUP VENA CAVA, PERC APPROACH (10/01/16)
[2019-03-27] MEDS ORDERED: levoFLOXacin 750 MG/150 ML 750 MG/150 ML BAG IV SCH ×2 (14:00→15:00)
[2019-03-27 15:48] VITALS: BP 162/79
== END 2019-03-27 15:30 | disposition home or self-care (01) ==
LOC: ED 12:21 → ICU 15:52
PROVIDERS: ADMIT Internal Medicine; ATTEND Internal Medicine
DX: L02.11 Cutaneous abscess of neck (principal); E10.42 Type 1 diabetes mellitus with diabetic polyneuropathy; E10.10 Type 1 diabetes mellitus with ketoacidosis without coma; I10 Essential (primary) hypertension; E78.5 Hyperlipidemia, unspecified; E03.9 Hypothyroidism, unspecified; F41.0 Panic disorder [episodic paroxysmal anxiety]; F31.9 Bipolar disorder, unspecified; F43.10 Post-traumatic stress disorder, unspecified; I50.9 Heart failure, unspecified; K21.9 Gastro-esophageal reflux disease without esophagitis; M10.9 Gout, unspecified; G89.29 Other chronic pain; M54.9 Dorsalgia, unspecified; Z90.49 Acquired absence of other specified parts of digestive tract; Z79.4 Long term (current) use of insulin; Z86.711 Personal history of pulmonary embolism; Z86.718 Personal history of other venous thrombosis and embolism; Z87.01 Personal history of pneumonia (recurrent)
CPT/HCPCS: 36415; 41017; 76536; 80048; 80053; 81001; 81025; 82009; 82040; 82803; 82947; 83036; 83690; 83735; 84100; 84484; 85025; 87040; 87070; 87150; 87181; 87205; 96361; 96365; 96366; 96368; 96375; 96376; 99285; A9270; G0378; J1170; J1815; 81003; 87086

== ENCOUNTER 2019-06-06 07:48 | Emergency (ER) | payer MEDICARE, MEDICAID ==
--- NOTE | 2019-06-06 08:07 | ED Physician Documentation ---
PD HPI URI - Stated complaint Stated Complaint: COLD SX - Chief complaint Chief Complaint: Resp - History obtained from History obtained from: Patient - History of Present Illness Timing - onset: How many days ago (6) Timing duration: Days (6) Timing details: Still present Associated symptoms: Sweats, Nasal congestion (x 4 days. post-nasal drip), Sore throat, Productive cough (yellow). No: Fever, Chills, Rhinorrhea Contributing factors: Immunocompromised (IDDM). No: COPD / asthma Improves by: Nothing Worsened by: Activity Recently seen: Not recently seen - Additional information Additional information: This is a 38-year-old woman who presents with complaints that she started to get a cold 6 days ago with a sore throat and progressed to a "sea-lion" cough. Then this morning about an hour prior to presentation she developed this throbbing stabbing pain in the left front chest just below where her pacemaker is. She is coughing up some white and now yellow phlegm without blood in it. She is felt short of breath with any exertion and very fatigued. She does not have a history of asthma and does not use inhalers. She denies nasal mucus but does have a lot of postnasal drip. She has not documented any fevers but she is felt very hot. Denies ear pain. She had some bloody discharge from the left nostril. She is been dizzy but has not passed out. Her blood sugar this morning was 202 and she only took only 28 units instead of her normal 30 units of long-acting insulin because she did not think she would be eating today until around noon. She has not had much of an appetite. She does have a history of CHF. Has been on disability since 2016 after she developed SVT and required 3 pacer surgeries in 1 year. Review of Systems Constitutional: reports: Fatigue, Sweats. denies: Fever Ears: denies: Ear pain Nose: reports: Congestion (Postnasal drip). denies: Rhinorrhea / runny nose Throat: reports: Sore throat Cardiac: reports: Chest pain / pressure Respiratory: reports: Dyspnea, Cough GI: denies: Vomiting Neurologic: reports: Generalized weakness. denies: Syncope Endocrine: reports: Other (Patient is a diabetic. 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: Endometriosis, Fibroids, Other : None HEENT: None Psych: Depression, Anxiety, Bipolar disorder, Panic attacks, Post traumatic stress disorder, Claustrophobia Musculoskeletal: Gout, Chronic back pain Derm: Other - Past Surgical History Past Surgical History: Yes General: Cholecystectomy, Appendectomy, Hiatal hernia repair, Colonoscopy, EGD /SALES OFFICE ADMINISTRATOR: Oophrectomy, Other Cardiovascular: Pacemaker, Other HEENT: Myringotomy (tubes), Tonsil/Adenoidectomy, Other - Present Medications Home Medications: Ambulatory Orders Medication Instructions Recorded Confirmed Insulin Glargine,Hum.rec.anlog 27 units SUBQ DAILY 09/05/13 03/26/19 [Lantus Solostar] Amitriptyline [Elavil] 75 mg PO QPM 07/03/14 03/26/19 Levothyroxine Sodium 275 mcg PO QDAC 10/08/17 03/26/19 Atorvastatin Calcium [Lipitor] 80 mg PO QPM 01/20/18 03/26/19 Venlafaxine HCl [Venlafaxine HCl 150 mg PO DAILY 01/20/18 03/26/19 ER] Famotidine 20 mg PO BIDAC 09/04/18 03/26/19 Gabapentin 200 mg PO TID #60 capsule 09/06/18 03/26/19 Furosemide [Lasix] 80 mg PO DAILY 02/18/19 03/26/19 Dicyclomine [Bentyl] 10 mg PO ACHS 03/26/19 03/26/19 Insulin Aspart [NovoLOG] 15 - 30 units SUBQ TIDWM 03/26/19 03/26/19 Insulin Glargine [Lantus Solostar] 32 unit SQ QPM 03/26/19 03/26/19 LORazepam [Ativan] 1 mg PO QPM PRN 03/26/19 03/26/19 Lisinopril 40 mg PO DAILY 03/26/19 03/26/19 Metoprolol Succinate 50 mg PO DAILY 03/26/19 03/26/19 Hydrocodone/Acetaminophen [Vicodin 1 each PO TID PRN #10 tablet 03/27/19 5-300 mg Tablet] levoFLOXacin [Levofloxacin] 750 mg PO DAILY 12 Days tablet 03/27/19 Acetaminophen/Cod 300/30 [Tylenol 1 each PO Q4-6H PRN #20 tablet 06/06/19 #3] Azithromycin [Zithromax] 0 mg PO DAILY #6 tablet 06/06/19 Benzonatate [Tessalon Perle] 100 - 200 mg PO TID PRN #30 capsule 06/06/19 - Allergies Allergies/Adverse Reactions: Allergies Allergy/AdvReac Type Severity Reaction Status Date / Time sulfamethoxazole Allergy Intermediate rash/ Verified 06/06/19 07:53 [From Bactrim] adhesive Allergy Rash Verified 06/06/19 07:53 amoxicillin [Amoxicillin] Allergy unknown Verified 06/06/19 07:53 oxycodone [Oxycodone] AdvReac Intermediate hallucinate, Verified 06/06/19 07:53 vomit promethazine HCl * AdvReac Mild Nausea Verified 06/06/19 07:53 [From Phenergan] - Social History Does the pt smoke?: No Smoking Status: Never smoker Does the pt drink ETOH?: No Does the pt have substance abuse?: No - Immunizations Immunizations are current?: Yes - POLST Patient has POLST: No POLST Status: Full Code PD ED PE NORMAL - Vitals Vital signs reviewed: Yes - General General: Alert and oriented X 3, No acute distress, Well developed/nourished, Other (Obese 38-year-old) - HEENT HEENT: Atraumatic, PERRL, EOMI, Ears normal, Moist mucous membranes, Pharynx benign - Neck Neck: Supple, no meningeal sign, No adenopathy, Thyroid normal - Cardiac Cardiac: RRR, No murmur, Strong equal pulses, Other (Well-healed scars in the midline chest and over the pacer in the left sub-clavicular region.) - Respiratory Respiratory: No respiratory distress, Clear bilaterally - Abdomen Abdomen: Normal bowel sounds, Soft - Extremities Extremities: No edema - Neuro Neuro: Alert and oriented X 3, 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 He was also given a Tessalon 100 mg. Chest x-ray showed no obvious infiltrate although there is an air bronchogram in the left lower lobe retrocardiac. Patient was placed on Zithromax Z-Joseph. She will be given prescription for Tessalon Perls 200 mg as well as Tylenol with codeine, due to Phenergan allergy. Encouraged to follow-up with her primary care provider if she is not improving. Departure - Departure Disposition: 01 Home, Self Care Clinical Impression: Bronchitis Condition: Good Instructions: ED Upper Resp Infec Abx Tx Follow-Up: Amisha Staton DO [Primary Care Provider] - Prescriptions: Acetaminophen/Cod 300/30 [Tylenol #3] 1 each PO Q4-6H PRN #20 tablet PRN Reason: Cough Azithromycin [Zithromax] 0 mg PO DAILY #6 tablet Benzonatate [Tessalon Perle] 100 - 200 mg PO TID PRN #30 capsule PRN Reason: Cough Comments: Take Aleve 1 tablet twice a day for the next 36 to 48 hours. Use the Tylenol with codeine if needed for cough suppressant due to your allergy to Phenergan, I prescribed tablet form codeine. Use the Tessalon Perles up to 3 times a day for cough. Take the Zithromax Z-Joseph as instructed. Drink plenty of water. Follow- up with your primary care provider if you are not improving. Return if you have increasing shortness of breath, increasing chest pain, or vomiting and cannot keep anything down or other problems arise.
[2019-06-06] MEDS ORDERED: BENZONATATE 100 MG CAPSULE PO STA (08:08)
[2019-06-06] MEDS ORDERED: ACETAMINOPHEN/CODEINE 300 MG/30 MG TABLET PO STA (08:08)
--- NOTE | 2019-06-06 09:05 | XRAY Report ---
Reason: cough Procedure Date: 06/06/2019 Accession Number: [id number] / [id number] Procedure: XR - Chest 2 View X-Ray CPT Code: 43079 Final Report FULL RESULT: EXAM: CHEST RADIOGRAPHY EXAM DATE: 06/06/2019 08:41 AM. CLINICAL HISTORY: Cough. COMPARISON: CHEST 1 VIEW 02/15/2019 11:02 PM. TECHNIQUE: 2 views. FINDINGS: Lungs/Pleura: No focal opacities evident. No pleural effusion. No pneumothorax. Normal volumes. Mediastinum: Heart and mediastinal contours are unremarkable. Other: Pacer unchanged. Epicardial lead IMPRESSION: No active cardiopulmonary disease RADIA
[2019-06-06 09:16] VITALS: BP 178/82
== END 2019-06-06 09:16 | disposition home or self-care (01) ==
LOC: ED 07:48
DX: J40 Bronchitis, not specified as acute or chronic (principal); E10.42 Type 1 diabetes mellitus with diabetic polyneuropathy; I11.0 Hypertensive heart disease with heart failure; I50.9 Heart failure, unspecified; Z95.0 Presence of cardiac pacemaker; Z88.8 Allergy status to other drugs, medicaments and biological substances; Z88.0 Allergy status to penicillin; Z88.2 Allergy status to sulfonamides
CPT/HCPCS: 71046; 99283; A9270

== ENCOUNTER 2019-06-27 15:57 | Outpatient (CLI) | payer MEDICARE, MEDICAID | END 2019-06-27 15:58 | disposition critical access hospital (66) | LOC: EMS 15:57 | PROVIDERS: ATTEND Surgery | DX: E10.65 Type 1 diabetes mellitus with hyperglycemia (principal); Z79.4 Long term (current) use of insulin | CPT/HCPCS: A0425; A0429 ==

== ENCOUNTER 2019-06-27 16:06 | Inpatient (IN) | payer MEDICARE, MEDICAID ==
--- NOTE | 2019-06-27 16:14 | ED Physician Documentation ---
History of Present Illness - Stated complaint Stated Complaint: DIABETIC - Additonal information Additional information: This is a 38-year-old female with a history of type 1 diabetes, Graves' disease status post thyroidectomy, SVT status post ablation with subsequent pacemaker pl acement for heart block, who presents with concern for DKA. Patient states that her sugars been running between 300 to greater than 500 recently, she has been using her insulin but has began to felt more nauseated despite Zofran, and she woke up today after a nap with her breathing heavy which is typical for DKA. She has some diffuse abdominal pain, and she is felt like she is not able to hydrate well. She denies fever or dysuria. She last took insulin 4.5 hours ago Review of Systems Constitutional: denies: Fever Nose: reports: Rhinorrhea / runny nose Throat: denies: Dental pain / toothache Cardiac: denies: Chest pain / pressure Respiratory: reports: Cough GI: reports: Abdominal Pain, Nausea : denies: Dysuria Skin: denies: Rash Neurologic: reports: Generalized weakness Endocrine: reports: Polydypsia PD PAST MEDICAL HISTORY - Past Medical History Cardiovascular: Congestive heart failure, Hypertension, High cholesterol, Deep vein thrombosis, Pulmonary embolism, Arrhythmia, Other Respiratory: Pneumonia, Other Neuro: Peripheral neuropathy Endocrine/Autoimmune: Type 1 diabetes, HyPOthyroidism, Other GI: GERD TALENT ACQUISITION ASSISTANT: Endometriosis, Fibroids, Other : None HEENT: None Psych: Depression, Anxiety, Bipolar disorder, Panic attacks, Post traumatic stress disorder, Claustrophobia Musculoskeletal: Gout, Chronic back pain Derm: Other - Past Surgical History Past Surgical History: Yes General: Cholecystectomy, Appendectomy, Hiatal hernia repair, Colonoscopy, EGD /TALENT ACQUISITION ASSISTANT: Oophrectomy, Other Cardiovascular: Pacemaker, Other HEENT: Myringotomy (tubes), Tonsil/Adenoidectomy, Other - Present Medications Home Medications: Ambulatory Orders Medication Instructions Recorded Confirmed Insulin Glargine,Hum.rec.anlog 28 units SUBQ DAILY 09/05/13 06/28/19 [Lantus Solostar] Amitriptyline [Elavil] 75 mg PO QPM 07/03/14 06/28/19 Levothyroxine Sodium 275 mcg PO QDAC 10/08/17 06/28/19 Atorvastatin Calcium [Lipitor] 80 mg PO QPM 01/20/18 06/28/19 Venlafaxine HCl [Venlafaxine HCl 150 mg PO DAILY 01/20/18 06/28/19 ER] Famotidine 20 mg PO BID 09/04/18 06/28/19 Gabapentin 200 mg PO TID #60 capsule 09/06/18 06/28/19 Furosemide [Lasix] 80 mg PO DAILY 02/18/19 06/28/19 Insulin Aspart [NovoLOG] 15 - 30 units SUBQ TIDWM 03/26/19 06/28/19 Insulin Glargine [Lantus Solostar] 32 unit SQ QPM 03/26/19 06/28/19 LORazepam [Ativan] 1 mg PO QPM PRN 03/26/19 06/28/19 Lisinopril 40 mg PO DAILY 03/26/19 06/28/19 Metoprolol Succinate 50 mg PO DAILY 03/26/19 06/28/19 Insulin Aspart [Novolog] 0 units SQ DAILY 06/28/19 06/28/19 Spironolactone 25 mg PO DAILY 06/28/19 06/28/19 - Allergies Allergies/Adverse Reactions: Allergies Allergy/AdvReac Type Severity Reaction Status Date / Time sulfamethoxazole Allergy Intermediate rash/ Verified 06/27/19 16:47 [From Bactrim] adhesive Allergy Rash Verified 06/27/19 16:47 amoxicillin [Amoxicillin] Allergy unknown Verified 06/27/19 16:47 oxycodone [Oxycodone] AdvReac Intermediate hallucinate, Verified 06/27/19 16:47 vomit promethazine HCl * AdvReac Mild Nausea Verified 06/27/19 16:47 [From Phenergan] - Social History Does the pt smoke?: No Smoking Status: Never smoker Does the pt drink ETOH?: No Does the pt have substance abuse?: No - Immunizations Immunizations are current?: Yes - POLST Patient has POLST: No POLST Status: Full Code PD ED PE NORMAL - Vitals Vital signs reviewed: Yes - General General: Other (Uncomfortable, dry mucous membranes, hypercapnic) - HEENT HEENT: PERRL - Neck Neck: Supple, no meningeal sign - Cardiac Cardiac: Other (Tachycardic, regular rhythm) - Respiratory Respiratory: Clear bilaterally, Other (Hypercapnia) - Abdomen Abdomen: Other (Soft, Diffuse mild tenderness to palpation in all 4 quadrants, no guarding) - Derm Derm: Warm and dry - Extremities Extremities: No deformity - Neuro Neuro: Alert and oriented X 3 - Psych Psych: Normal mood, Normal affect Results - Vitals Vitals: Oxygen O2 Source Room air - Labs Labs: Laboratory Tests 06/27/19 06/27/19 06/27/19 16:21 17:03 17:03 WBC 11.5 H RBC 4.40 Hgb 14.0 Hct 44.3 MCV 100.7 H MCH 31.8 H MCHC 31.6 L RDW 12.1 Plt Count 427 MPV 9.6 Neut # (Auto) 9.9 H Lymph # (Auto) 0.9 L [place] # (Auto) 0.6 Eos # (Auto) 0.0 Baso # (Auto) 0.1 Absolute Nucleated RBC 0.00 Nucleated RBC % 0.0 VBG pH VBG pCO2 VBG pO2 VBG HCO3 VBG Total CO2 VBG O2 Saturation VBG Base Excess Sodium 131 L Potassium 6.0 H* Chloride 97 L Carbon Dioxide 7 L* Anion Gap 27.0 H BUN 26 H Creatinine 1.5 H Estimated GFR (MDRD) 38 L Glucose 480 H Glycated Hemoglobin Estim Average Glucose Lactic Acid Calcium 8.9 Phosphorus 4.5 Magnesium 2.6 Total Bilirubin 2.0 H AST 16 ALT 18 Alkaline Phosphatase 154 H Total Protein 8.2 Albumin 3.6 Globulin 4.6 H Albumin/Globulin Ratio 0.8 L Lipase 23 Urine Color Urine Clarity Urine pH Ur Specific [place] Urine Protein Urine Glucose (UA) Urine Ketones Urine Occult Blood Urine Nitrite Urine Bilirubin Urine Urobilinogen Ur Leukocyte Esterase Urine RBC Urine WBC Ur Squamous Epith Cells Urine Bacteria Ur Microscopic Review Urine Culture Comments Urine HCG, Qual Serum Ketones SMALL H 06/27/19 06/27/19 06/27/19 17:03 17:03 17:03 WBC RBC Hgb Hct MCV MCH MCHC RDW Plt Count MPV Neut # (Auto) Lymph # (Auto) [place] # (Auto) Eos # (Auto) Baso # (Auto) Absolute Nucleated RBC Nucleated RBC % VBG pH 7.136 L VBG pCO2 22.4 L VBG pO2 38.9 VBG HCO3 7.4 L VBG Total CO2 8.1 L VBG O2 Saturation 73.5 VBG Base Excess -19.8 L Sodium Potassium Chloride Carbon Dioxide Anion Gap BUN Creatinine Estimated GFR (MDRD) Glucose Glycated Hemoglobin 10.8 H Estim Average Glucose 263 H Lactic Acid 1.6 Calcium Phosphorus Magnesium Total Bilirubin AST ALT Alkaline Phosphatase Total Protein Albumin Globulin Albumin/Globulin Ratio Lipase Urine Color Urine Clarity Urine pH Ur Specific [place] Urine Protein Urine Glucose (UA) Urine Ketones Urine Occult Blood Urine Nitrite Urine Bilirubin Urine Urobilinogen Ur Leukocyte Esterase Urine RBC Urine WBC Ur Squamous Epith Cells Urine Bacteria Ur Microscopic Review Urine Culture Comments Urine HCG, Qual Serum Ketones 06/27/19 06/27/19 17:56 17:56 WBC RBC Hgb Hct MCV MCH MCHC RDW Plt Count MPV Neut # (Auto) Lymph # (Auto) [place] # (Auto) Eos # (Auto) Baso # (Auto) Absolute Nucleated RBC Nucleated RBC % VBG pH VBG pCO2 VBG pO2 VBG HCO3 VBG Total CO2 VBG O2 Saturation VBG Base Excess Sodium Potassium Chloride Carbon Dioxide Anion Gap BUN Creatinine Estimated GFR (MDRD) Glucose Glycated Hemoglobin Estim Average Glucose Lactic Acid Calcium Phosphorus Magnesium Total Bilirubin AST ALT Alkaline Phosphatase Total Protein Albumin Globulin Albumin/Globulin Ratio Lipase Urine Color YELLOW Urine Clarity CLEAR Urine pH 5.5 Ur Specific [place] >=1.030 H >=1.030 H Urine Protein 100 H Urine Glucose (UA) 500 H Urine Ketones >=80 H Urine Occult Blood MODERATE H Urine Nitrite NEGATIVE Urine Bilirubin NEGATIVE Urine Urobilinogen 0.2 (NORMAL) Ur Leukocyte Esterase NEGATIVE Urine RBC 6-10 H Urine WBC 0-3 Ur Squamous Epith Cells MANY Squamous H Urine Bacteria Few Ur Microscopic Review INDICATED Urine Culture Comments NOT INDICATED Urine HCG, Qual NEGATIVE Serum Ketones PD MEDICAL DECISION MAKING - ED course Complexity details: considered differential (DKA, electrolyte abnormality, UTI, pneumonia, dehydration, HHS) ED course: Pt presents and is tachycardic, hyperpneic, and dehydrated appearing. Labs were drawn, she was given crystalloid bolus with nausea and pain control. Labs reveal an acidosis, serum ketones, pH 7.1, elevated anion gap acidosis with bicarb of 7. Her potassium is also elevated. An additional NS bolus was given and she was started on insulin drip. CXR shows no acute process. The pacemaker site has no signs of infection on my exam. Central line placed by anesthesia and patient was admitted to the ICU. Her abdomen is benign at this time, lactate is normal, UA negative for infection, and I think her abdominal discomfort is likely secondary to DKA, but she warrants serial exams and if it is not improving imaging would be reasonable. Patient agrees with this plan and was admitted to the ICU. Departure - Departure Disposition: 66 [facility] DC/Xfer Clinical Impression: DKA (diabetic ketoacidoses) Qualifiers: Diabetes mellitus type: type 1 Diabetes mellitus complication detail: without coma Qualified Code(s): E10.10 - Type 1 diabetes mellitus with ketoacidosis without coma Discharge Date/Time: 06/27/19 21:00
[2019-06-27] MEDS ORDERED: MORPHINE 10 MG/ML VIAL IVP STA (16:19)
[2019-06-27] MEDS ORDERED: SODIUM CHLORIDE 0.9% 1,000 ML IV STA (16:19)
[2019-06-27] MEDS ORDERED: ONDANSETRON 4 MG/2 ML VIAL IVP STA ×2 (16:19→18:20)
--- NOTE | 2019-06-27 16:55 | XRAY Report ---
Reason: Cough, pain around pacemaker site Procedure Date: 06/27/2019 Accession Number: [id number] / [id number] Procedure: XR - Chest 1 View X-Ray CPT Code: 72620 Final Report FULL RESULT: EXAM: CHEST RADIOGRAPHY EXAM DATE: 06/27/2019 04:49 PM. CLINICAL HISTORY: Cough, pain around pacemaker site. COMPARISON: CHEST 2 VIEW 06/06/2019 8:32 AM. TECHNIQUE: 1 view. FINDINGS: Lungs/Pleura: No focal opacities evident. No pleural effusion. No pneumothorax. Mediastinum: Heart size within normal limits for technique. There is a left chest pacemaker device with leads overlying right atrium and right ventricle. Leads appear unchanged in position. Other: None. IMPRESSION: No interval change. Clear lungs. RADIA
[2019-06-27 17:10] LABS: BASOPHILS # (AUTO) 0.1 10^3/uL (0.0-0.1); BASOPHILS % (AUTO) 0.6 %; EOSINOPHILS % (AUTO) 0.2 %; LYMPHOCYTES # (AUTO) 0.9 10^3/uL (1.5-3.5); LYMPHOCYTES % (AUTO) 7.9 %; MEAN CORPUSCULAR HEMOGLOBIN 31.8 pg (27.0-31.0); MEAN CORPUSCULAR HGB CONC 31.6 g/dL (32.0-36.0); MEAN CORPUSCULAR VOLUME 100.7 fL (81.0-99.0); MEAN PLATELET VOLUME 9.6 fL (7.9-10.8); MONOCYTES # (AUTO) 0.6 10^3/uL (0.0-1.0); NEUTROPHILS # (AUTO) 9.9 10^3/uL (1.5-6.6); NEUTROPHILS % (AUTO) 85.9 %; PLT - PLATELET COUNT 427 10^3/uL (130-450); RED CELL DISTRIBUTION WIDTH 12.1 % (12.0-15.0); WHITE BLOOD COUNT 11.5 x10^3/uL (4.8-10.8)
[2019-06-27 17:15] LABS: VBG BASE EXCESS -19.8 mmol/L (-2 - +2); VBG PCO2 22.4 mmHg (41-51); VBG PH 7.136 (7.31-7.41); VBG PO2 38.9 mmHg (25-47); VBG TOTAL CO2 8.1 mmol/L (24-29)
[2019-06-27 17:26] LABS: ALBUMIN 3.6 g/dL (3.2-5.5); ALBUMIN/GLOBULIN RATIO 0.8 (1.0-2.2); ALKALINE PHOSPHATASE 154 IU/L (42-121); ALT ALANINE AMINOTRANSFERASE 18 IU/L (10-60); AST ASPARTATE AMINOTRANSFERASE 16 IU/L (10-42); BUN - BLOOD UREA NITROGEN 26 mg/dL (6-20); CALCIUM 8.9 mg/dL (8.5-10.3); CHLORIDE 97 mmol/L (101-111); CREATININE 1.5 mg/dL (0.4-1.0); GFR - MDRD 38 (>89); GLUCOSE 480 mg/dL (70-100); LIPASE 23 U/L (22-51); SODIUM 131 mmol/L (135-145); TOTAL PROTEIN 8.2 g/dL (6.7-8.2)
[2019-06-27 17:29] LABS: CARBON DIOXIDE - CO2 7 mmol/L (21-32)
[2019-06-27 17:31] LABS: KETONES, SERUM (ACETEST) SMALL (NEGATIVE)
[2019-06-27] MEDS ORDERED: SODIUM CHLORIDE 0.9% 1,000 ML IV ONE (17:38)
[2019-06-27 17:53] LABS: MAGNESIUM 2.6 mg/dL (1.7-2.8); PHOSPHORUS 4.5 mg/dL (2.5-4.6)
[2019-06-27] MEDS ORDERED: SODIUM CHLORIDE FLUSH 0.9% 10 ML SYRINGE IVP PRN (17:59)
[2019-06-27] MEDS ORDERED: oxyCODONE 5 MG TABLET PO PRN (17:59)
[2019-06-27] MEDS ORDERED: INSULIN REGULAR HUMAN 100 UNIT in SODIUM CHLORIDE 0.9% 100ML 99 ML IV SCH ×2 (18:00→19:00)
[2019-06-27 18:09] LABS: GLUCOSE, URINE (UA) 500 mg/dL (NEGATIVE); KETONES,URINE (UA) >=80 mg/dL (NEGATIVE); LEUKOCYTE ESTERASE, URINE NEGATIVE (NEGATIVE); NITRITE,URINE NEGATIVE (NEGATIVE); OCCULT BLOOD,URINE MODERATE (NEGATIVE); PH,URINE 5.5 PH (5.0-7.5); PROTEIN,URINE 100 mg/dL (NEGATIVE); UROBILINOGEN,URINE 0.2 (NORMAL) E.U./dL (NORMAL)
[2019-06-27] MEDS ORDERED: MORPHINE 2 MG/ML CARPUJECT IVP STA (18:12)
[2019-06-27 18:23] LABS: BACTERIA,URINE Few /HPF (None Seen); BILIRUBIN,URINE NEGATIVE (NEGATIVE); CLARITY,URINE CLEAR (CLEAR); ICTOTEST,URINE NEGATIVE; SQUAMOUS EPITHELIAL CELL,UR MANY Squamous (<= Few)
[2019-06-27 18:32] LABS: HCG UR QUAL NEGATIVE
[2019-06-27 20:03] LABS: HB2 TOTAL 14.8 g/dL; HEMOGLOBIN A1C 1.4 g/dL; HEMOGLOBIN A1C % 10.8 % (4.6-6.2)
[2019-06-27] MEDS ORDERED: MIDAZOLAM 2 MG/2 ML VIAL IVP ONE (20:04)
[2019-06-27] MEDS ORDERED: MIDAZOLAM 2 MG/2 ML VIAL IVP PRN (20:05)
--- NOTE | 2019-06-27 20:45 | ANESTHESIA PROCEDURE NOTE ---
Anesth Central Line Template - Central Line Central Line Preparation: Consent Obtained, Time out completed, Ultrasound used, Sterile prep and drape Central line location: Right IJ Central line type: Triple lumen Central line catheter tip site resides: Superior vena cava (SVC) (cavoatrial junction) Central line aftercare: Chlorhexidine disc placed, Secured, No complications, Bundle checklist complete, Pt tolerated well Other Info/Details: Called to place central line for patient with DKA. After consent was obtained, the right neck area prepped with chlorohexadine. Full drape, gown, sterile gloves and mask were utilized during placement. Right IJ identified under ultrasound and insertion area was localized with 1% lidocaine. 18G needle inserted under ultrasound guidance and inserted into Right IJ. Wire advanced with ease. A 20cm Triple lumen central line was advanced over the wire. The wire was removed and all three ports aspirate heme and were flushed with ease. The line was sutured in place at 17cm. Patient tolerated well. Xray shows tip in the cavoatrial junction.
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
--- NOTE | 2019-06-27 21:42 | XRAY Report ---
Reason: New central line Procedure Date: 06/27/2019 Accession Number: [id number] / [id number] Procedure: XR - Chest for Line Placement CPT Code: Final Report FULL RESULT: EXAM: CHEST RADIOGRAPHY EXAM DATE: 06/27/2019 08:47 PM. CLINICAL HISTORY: New central line. COMPARISON: CHEST 1 VIEW 06/27/2019 4:25 PM. TECHNIQUE: 1 view. FINDINGS: Lungs/Pleura: No focal opacities evident. No pleural effusion. No pneumothorax. Mediastinum: Within exam limitations, the cardiomediastinal contour is normal. Other: Right-sided jugular vein catheters in place the tip is in the superior vena cava. Pacemaker is noted in the left with 3 intact leads. IMPRESSION: Normal single view chest. RADIA
[2019-06-27] MEDS ORDERED: SODIUM CHLORIDE 0.9% 1,000 ML IV SCH (22:00)
[2019-06-27 22:27] LABS: VBG PH 7.225 (7.31-7.41)
[2019-06-27 22:28] LABS: VBG BASE EXCESS -16.9 mmol/L (-2 - +2); VBG PCO2 21.1 mmHg (41-51); VBG TOTAL CO2 9.2 mmol/L (24-29)
[2019-06-27 22:41] LABS: CALCIUM 8.4 mg/dL (8.5-10.3); CREATININE 1.5 mg/dL (0.4-1.0); MAGNESIUM 2.2 mg/dL (1.7-2.8)
[2019-06-27] MEDS ORDERED: POTASSIUM CHLOR 10 MEQ/100 ML 10 MEQ/100 ML BAG IV ONE (22:52)
[2019-06-27] MEDS: GABAPENTIN 100 MG CAPSULE PO SCH (23:15)
[2019-06-27] MEDS: ACETAMINOPHEN 325 MG TABLET PO PRN (23:16)
[2019-06-27] MEDS: ONDANSETRON ODT 4 MG TABLET TL PRN (23:19)
[2019-06-28] MEDS: D5.45NS W/20 MEQ KCL 1,000 ML IV SCH ×4 (00:53→21:56)
[2019-06-28] MEDS ORDERED: POTASSIUM CHLORIDE INJ 40 MEQ in DEXTROSE 5%-0.45% NACL 980 ML IV SCH (01:00)
[2019-06-28] MEDS: METOCLOPRAMIDE 10 MG/2 ML VIAL IVP PRN (02:40)
[2019-06-28] MEDS: SODIUM CHLORIDE FLUSH 0.9% 10 ML SYRINGE IVP SCH ×3 (02:40→16:44)
[2019-06-28] MEDS ORDERED: INSULIN REGULAR HUMAN 300 UNIT/3 ML VIAL ONE (03:23)
[2019-06-28] MEDS: INSULIN REGULAR HUMAN 100 UNIT in SODIUM CHLORIDE 0.9% 100ML 99 ML IV SCH ×2 (03:31→09:09)
[2019-06-28 05:57] LABS: VBG BASE EXCESS -20.2 mmol/L (-2 - +2); VBG PCO2 17.8 mmHg (41-51); VBG PH 7.162 (7.31-7.41); VBG PO2 199.8 mmHg (25-47); VBG TOTAL CO2 6.8 mmol/L (24-29)
[2019-06-28 06:00] LABS: BASOPHILS # (AUTO) 0.1 10^3/uL (0.0-0.1); BASOPHILS % (AUTO) 0.4 %; EOSINOPHILS % (AUTO) 0.1 %; HGB - HEMOGLOBIN 13.1 g/dL (12.0-16.0); LYMPHOCYTES # (AUTO) 0.6 10^3/uL (1.5-3.5); LYMPHOCYTES % (AUTO) 4.7 %; MEAN CORPUSCULAR HEMOGLOBIN 33.1 pg (27.0-31.0); MEAN CORPUSCULAR HGB CONC 32.8 g/dL (32.0-36.0); MEAN PLATELET VOLUME 9.8 fL (7.9-10.8); MONOCYTES # (AUTO) 0.8 10^3/uL (0.0-1.0); MONOCYTES % (AUTO) 6.4 %; NEUTROPHILS # (AUTO) 11.3 10^3/uL (1.5-6.6); NEUTROPHILS % (AUTO) 87.8 %; PLT - PLATELET COUNT 334 10^3/uL (130-450); RED BLOOD COUNT 3.96 10^6/uL (4.20-5.40); RED CELL DISTRIBUTION WIDTH 12.2 % (12.0-15.0); WHITE BLOOD COUNT 12.9 x10^3/uL (4.8-10.8)
[2019-06-28 06:08] LABS: BUN - BLOOD UREA NITROGEN 29 mg/dL (6-20); CALCIUM 7.8 mg/dL (8.5-10.3); CHLORIDE 106 mmol/L (101-111); CREATININE 1.6 mg/dL (0.4-1.0); GFR - MDRD 36 (>89); GLUCOSE 344 mg/dL (70-100); SODIUM 135 mmol/L (135-145)
[2019-06-28 06:10] LABS: CARBON DIOXIDE - CO2 6 mmol/L (21-32)
[2019-06-28] MEDS ORDERED: LABETALOL 20 MG/4 ML SYRINGE IVP ONE (06:12)
[2019-06-28 06:15] LABS: KETONES, SERUM (ACETEST) SMALL (NEGATIVE)
[2019-06-28] MEDS: GABAPENTIN 100 MG CAPSULE PO SCH ×3 (06:29→21:12)
[2019-06-28 08:08] LABS: MAGNESIUM 2.2 mg/dL (1.7-2.8)
[2019-06-28 09:23] LABS: VBG PH 7.284 (7.31-7.41)
[2019-06-28 11:53] LABS: CALCIUM 7.8 mg/dL (8.5-10.3); CREATININE 1.3 mg/dL (0.4-1.0)
[2019-06-28] MEDS: ONDANSETRON ODT 4 MG TABLET TL PRN (16:44)
--- NOTE | 2019-06-28 17:19 | PROVIDER PROGRESS NOTE ---
Assessment/Plan - Problem List (1) DKA (diabetic ketoacidoses) Qualifiers: Diabetes mellitus type: type 1 Diabetes mellitus complication detail: without coma Qualified Code(s): E10.10 - Type 1 diabetes mellitus with ketoacidosis without coma Assessment/Plan: Her AG is correcting and glu are better. Will add D5 to fluid as her iv Insulin rate decreases per protocol and restart a diet; clears and advance as tolerated. (2) URI (upper respiratory infection) Assessment/Plan: She had nasal congestion and a cough, thus the DKA may have been duwe to either a new (?viral ) infection or (less likely) her recent bronchitis for which she was on antibx. (3) Electrolyte and fluid disorder Assessment/Plan: She requires an ICU protocol for correction of abnormal Na, Mg, K and PO4. (4) Dehydration Assessment/Plan: This accompanied her DKA and treating this has improved her ARIANA slightly. (5) ARIANA (acute kidney injury) Assessment/Plan: Continue iv fluids. Follow BUN/creat daily. - Current Meds Current Meds: Current Medications Generic Name Dose Route Start Last Admin Trade Name Freq PRN Reason Stop Dose Admin Acetaminophen 650 mg 06/27/19 17:59 06/27/19 23:16 Tylenol PO 650 mg Q4HR PRN Administration Pain 1 to 4 Gabapentin 200 mg 06/27/19 22:00 06/28/19 14:36 Neurontin PO 200 mg TID ADALBERTO Administration Potassium Chloride/Dextrose/Sod Cl 1,000 mls @ 150 mls/hr 06/28/19 01:00 06/28/19 14:37 D5.45ns W/20 Meq Kcl IV 150 mls/hr .Q6H40M ADALBERTO Administration Insulin Human Regular 100 unit 100 mls @ 9.98 mls/hr 06/28/19 04:00 06/28/19 17:00 / Sodium Chloride IV 0.02 unit/kg/hr .Q10H2M ADALBERTO 2.5 mls/hr Titration Protocol 0.1 UNIT/KG/HR Metoclopramide HCl 5 mg 06/28/19 02:18 06/28/19 02:40 Reglan Inj IVP 5 mg Q6HR PRN Administration Nausea / Vomiting Ondansetron HCl 4 mg 06/27/19 17:59 06/28/19 16:44 Zofran Odt TL 4 mg Q6HR PRN Administration Nausea / Vomiting Sodium Chloride 10 ml 06/28/19 01:00 06/28/19 16:44 Normal Saline Flush 0.9% IVP 10 ml 0100,0900,1700 ADALBERTO Administration - Lab Result Fish Bone Diagrams: 06/28/19 05:15 06/28/19 11:37 - Additional Planning My Orders: My Active Orders 06/28/19 Dinner DIET [Clear Liquid Diet] [DIET] 06/29/19 Breakfast DIET [Carb-controlled Diet] [DIET] Subjective - Subjective Patient Reports: Feeling Better Objective Vital Signs: Vital Signs - 24 hr 06/27/19 06/27/19 06/27/19 17:39 19:19 21:00 Temperature 37.2 C Heart Rate 120 H 122 H Heart Rate [ 128 H Monitoring electrodes] Respiratory 31 H 36 H 27 H Rate Blood Pressure 173/65 H 179/88 H Blood Pressure 179/85 H [Right Brachial artery] O2 Saturation 100 98 100 06/28/19 06/28/19 06/28/19 00:00 01:00 01:58 Temperature 36.9 C Heart Rate Heart Rate [ 126 H 115 H 113 H Monitoring electrodes] Respiratory 20 25 H 19 Rate Blood Pressure Blood Pressure 152/78 H 152/69 H 152/67 H [Right Brachial artery] O2 Saturation 97 98 100 06/28/19 06/28/19 06/28/19 03:00 03:40 03:45 Temperature Heart Rate 116 H 117 H Heart Rate [ 114 H Monitoring electrodes] Respiratory 23 25 H 26 H Rate Blood Pressure Blood Pressure 172/52 H [Right Brachial artery] O2 Saturation 100 06/28/19 06/28/19 06/28/19 03:50 03:55 04:00 Temperature 37.0 C Heart Rate 119 H 116 H 116 H Heart Rate [ 117 H Monitoring electrodes] Respiratory 23 24 22 Rate Blood Pressure Blood Pressure 182/65 H [Right Brachial artery] O2 Saturation 100 06/28/19 06/28/19 06/28/19 04:01 04:05 04:10 Temperature Heart Rate 116 H 118 H 118 H Heart Rate [ Monitoring electrodes] Respiratory 24 18 21 Rate Blood Pressure 182/65 H Blood Pressure [Right Brachial artery] O2 Saturation 06/28/19 06/28/19 06/28/19 04:15 04:20 04:25 Temperature Heart Rate 116 H 116 H 121 H Heart Rate [ Monitoring electrodes] Respiratory 25 H 21 15 Rate Blood Pressure Blood Pressure [Right Brachial artery] O2 Saturation 06/28/19 06/28/19 06/28/19 04:30 04:35 04:40 Temperature Heart Rate 119 H 121 H 118 H Heart Rate [ Monitoring electrodes] Respiratory 20 20 22 Rate Blood Pressure Blood Pressure [Right Brachial artery] O2 Saturation 06/28/19 06/28/19 06/28/19 04:45 04:50 04:55 Temperature Heart Rate 118 H 117 H 116 H Heart Rate [ Monitoring electrodes] Respiratory 21 25 H 20 Rate Blood Pressure Blood Pressure [Right Brachial artery] O2 Saturation 06/28/19 06/28/19 06/28/19 05:00 05:01 05:05 Temperature Heart Rate 117 H 118 H 124 H Heart Rate [ 117 H Monitoring electrodes] Respiratory 22 22 21 Rate Blood Pressure 191/79 H Blood Pressure 191/79 H [Right Brachial artery] O2 Saturation 100 06/28/19 06/28/19 06/28/19 05:10 05:15 05:20 Temperature Heart Rate 121 H 118 H 117 H Heart Rate [ Monitoring electrodes] Respiratory 27 H 27 H 27 H Rate Blood Pressure Blood Pressure [Right Brachial artery] O2 Saturation 06/28/19 06/28/19 06/28/19 05:25 05:30 05:35 Temperature Heart Rate 118 H 118 H 119 H Heart Rate [ Monitoring electrodes] Respiratory 24 27 H 18 Rate Blood Pressure Blood Pressure [Right Brachial artery] O2 Saturation 06/28/19 06/28/19 06/28/19 05:40 05:45 05:50 Temperature Heart Rate 121 H 119 H 120 H Heart Rate [ Monitoring electrodes] Respiratory 28 H 27 H 24 Rate Blood Pressure Blood Pressure [Right Brachial artery] O2 Saturation 06/28/19 06/28/19 06/28/19 05:55 06:00 06:01 Temperature Heart Rate 120 H 121 H 121 H Heart Rate [ 122 H Monitoring electrodes] Respiratory 23 27 H 26 H Rate Blood Pressure 210/94 H Blood Pressure 205/87 H [Right Brachial artery] O2 Saturation 100 06/28/19 06/28/19 06/28/19 06:02 06:03 06:05 Temperature Heart Rate 120 H 122 H 122 H Heart Rate [ Monitoring electrodes] Respiratory 26 H 24 25 H Rate Blood Pressure 203/96 H Blood Pressure [Right Brachial artery] O2 Saturation 06/28/19 06/28/19 06/28/19 06:07 06:08 06:10 Temperature Heart Rate 121 H 122 H 122 H Heart Rate [ Monitoring electrodes] Respiratory 24 23 24 Rate Blood Pressure 205/87 H Blood Pressure [Right Brachial artery] O2 Saturation 06/28/19 06/28/19 06/28/19 06:15 06:20 06:25 Temperature Heart Rate 124 H 121 H 101 H Heart Rate [ Monitoring electrodes] Respiratory 20 20 26 H Rate Blood Pressure Blood Pressure [Right Brachial artery] O2 Saturation 06/28/19 06/28/19 06/28/19 06:30 06:33 06:34 Temperature Heart Rate 102 H 103 H 103 H Heart Rate [ Monitoring electrodes] Respiratory 25 H 25 H 25 H Rate Blood Pressure 159/94 H Blood Pressure [Right Brachial artery] O2 Saturation 06/28/19 06/28/19 06/28/19 06:35 06:36 06:37 Temperature Heart Rate 103 H 104 H 104 H Heart Rate [ Monitoring electrodes] Respiratory 24 24 23 Rate Blood Pressure 159/77 H 158/83 H 158/73 H Blood Pressure [Right Brachial artery] O2 Saturation 06/28/19 06/28/19 06/28/19 06:38 06:39 06:40 Temperature Heart Rate 104 H 104 H 106 H Heart Rate [ Monitoring electrodes] Respiratory 22 23 24 Rate Blood Pressure 159/72 H 161/78 H Blood Pressure [Right Brachial artery] O2 Saturation 06/28/19 06/28/19 06/28/19 07:00 08:00 09:00 Temperature 36.4 C L Heart Rate Heart Rate [ 109 H 110 H 105 H Monitoring electrodes] Respiratory 21 15 19 Rate Blood Pressure Blood Pressure 155/70 H 153/64 H 155/69 H [Right Brachial artery] O2 Saturation 99 100 100 06/28/19 06/28/19 06/28/19 10:00 11:00 12:00 Temperature 36.9 C Heart Rate Heart Rate [ 109 H 102 H 109 H Monitoring electrodes] Respiratory 24 19 21 Rate Blood Pressure Blood Pressure 157/69 H 164/68 H 171/69 H [Right Brachial artery] O2 Saturation 99 99 99 06/28/19 06/28/19 06/28/19 13:00 14:00 15:10 Temperature Heart Rate Heart Rate [ 104 H 104 H 101 H Monitoring electrodes] Respiratory 21 20 20 Rate Blood Pressure Blood Pressure 174/74 H 168/66 H 183/73 H [Right Brachial artery] O2 Saturation 99 100 100 06/28/19 06/28/19 16:00 17:00 Temperature 37.0 C Heart Rate Heart Rate [ 110 H 112 H Monitoring electrodes] Respiratory 25 H 15 Rate Blood Pressure Blood Pressure 181/74 H 178/69 H [Right Brachial artery] O2 Saturation 100 100 Oxygen O2 Source Room air I&O (Last 24 Hrs): Intake and Output Totals x24h 06/26/19 06/27/19 06/28/19 23:59 23:59 23:59 Intake Total 9220.014 4700.533 Output Total 0 1500 Balance 9885.279 5401.533 General: Alert, Oriented x3 HEENT: Mucous membr. moist/pink Neck: Supple Neuro: Non Focal Cardiovascular: Regular rate Respiratory: No respiratory distress Abdomen: No tenderness Extremities: No edema - Results Results: Laboratory Results WBC 12.9 x10^3/uL (4.8-10.8) H 06/28/19 05:15 RBC 3.96 10^6/uL (4.20-5.40) L 06/28/19 05:15 Hgb 13.1 g/dL (12.0-16.0) 06/28/19 05:15 Hct 40.0 % (37.0-47.0) 06/28/19 05:15 MCV 101.0 fL (81.0-99.0) H 06/28/19 05:15 MCH 33.1 pg (27.0-31.0) H 06/28/19 05:15 MCHC 32.8 g/dL (32.0-36.0) 06/28/19 05:15 RDW 12.2 % (12.0-15.0) 06/28/19 05:15 Plt Count 334 10^3/uL (130-450) 06/28/19 05:15 MPV 9.8 fL (7.9-10.8) 06/28/19 05:15 Neut # (Auto) 11.3 10^3/uL (1.5-6.6) H 06/28/19 05:15 Lymph # (Auto) 0.6 10^3/uL (1.5-3.5) L 06/28/19 05:15 [place] # (Auto) 0.8 10^3/uL (0.0-1.0) 06/28/19 05:15 Eos # (Auto) 0.0 10^3/uL (0.0-0.7) 06/28/19 05:15 Baso # (Auto) 0.1 10^3/uL (0.0-0.1) 06/28/19 05:15 Absolute Nucleated RBC 0.00 x10^3/uL 06/28/19 05:15 Nucleated RBC % 0.0 /100WBC 06/28/19 05:15 VBG pH 7.284 (7.31-7.41) L 06/28/19 09:15 VBG pCO2 17.8 mmHg (41-51) L 06/28/19 05:15 VBG pO2 199.8 mmHg (25-47) H 06/28/19 05:15 VBG HCO3 6.2 mmol/L (23-28) L 06/28/19 05:15 VBG Total CO2 6.8 mmol/L (24-29) L 06/28/19 05:15 VBG O2 Saturation 99.1 % (60-80) H 06/28/19 05:15 VBG Base Excess -20.2 mmol/L (-2 - +2) L 06/28/19 05:15 Ionized Calcium 1.13 mmol/L (1.15-1.33) L 06/28/19 09:15 Sodium 137 mmol/L (135-145) 06/28/19 11:37 Potassium 3.9 mmol/L (3.5-5.0) 06/28/19 11:37 Chloride 110 mmol/L (101-111) 06/28/19 11:37 Carbon Dioxide 17 mmol/L (21-32) L 06/28/19 11:37 Anion Gap 10.0 (6-13) 06/28/19 11:37 BUN 27 mg/dL (6-20) H 06/28/19 11:37 Creatinine 1.3 mg/dL (0.4-1.0) H 06/28/19 11:37 Estimated GFR (MDRD) 45 (>89) L 06/28/19 11:37 Glucose 118 mg/dL (70-100) H 06/28/19 11:37 Glycated Hemoglobin 10.8 % (4.6-6.2) H 06/27/19 17:03 Estim Average Glucose 263 (70-100) H 06/27/19 17:03 Lactic Acid 1.6 mmol/L (0.5-2.2) 06/27/19 17:03 Calcium 7.8 mg/dL (8.5-10.3) L 06/28/19 11:37 Phosphorus 3.0 mg/dL (2.5-4.6) 06/28/19 05:15 Magnesium 2.2 mg/dL (1.7-2.8) 06/28/19 05:15 Total Bilirubin 2.0 mg/dL (0.2-1.0) H 06/27/19 17:03 AST 16 IU/L (10-42) 06/27/19 17:03 ALT 18 IU/L (10-60) 06/27/19 17:03 Alkaline Phosphatase 154 IU/L (42-121) H 06/27/19 17:03 Total Protein 8.2 g/dL (6.7-8.2) 06/27/19 17:03 Albumin 3.3 g/dL (3.2-5.5) 06/28/19 05:15 Globulin 4.6 g/dL (2.1-4.2) H 06/27/19 17:03 Albumin/Globulin Ratio 0.8 (1.0-2.2) L 06/27/19 17:03 Lipase 23 U/L (22-51) 06/27/19 17:03 Urine Color YELLOW 06/27/19 17:56 Urine Clarity CLEAR (CLEAR) 06/27/19 17:56 Urine pH 5.5 PH (5.0-7.5) 06/27/19 17:56 Ur Specific [place] >=1.030 (1.002-1.030) H 06/27/19 17:56 Urine Protein 100 mg/dL (NEGATIVE) H 06/27/19 17:56 Urine Glucose (UA) 500 mg/dL (NEGATIVE) H 06/27/19 17:56 Urine Ketones >=80 mg/dL (NEGATIVE) H 06/27/19 17:56 Urine Occult Blood MODERATE (NEGATIVE) H 06/27/19 17:56 Urine Nitrite NEGATIVE (NEGATIVE) 06/27/19 17:56 Urine Bilirubin NEGATIVE (NEGATIVE) 06/27/19 17:56 Urine Urobilinogen 0.2 (NORMAL) E.U./dL (NORMAL) 06/27/19 17:56 Ur Leukocyte Esterase NEGATIVE (NEGATIVE) 06/27/19 17:56 Urine RBC 6-10 /HPF (0-5) H 06/27/19 17:56 Urine WBC 0-3 /HPF (0-5) 06/27/19 17:56 Ur Squamous Epith Cells MANY Squamous (<= Few) H 06/27/19 17:56 Urine Bacteria Few /HPF (None Seen) 06/27/19 17:56 Ur Microscopic Review INDICATED 06/27/19 17:56 Urine Culture Comments NOT INDICATED 06/27/19 17:56 Urine HCG, Qual NEGATIVE 06/27/19 17:56 Nasal Screen MRSA (PCR) NEGATIVE (NEGATIVE) 06/27/19 21:05 Serum Ketones SMALL (NEGATIVE) H 06/28/19 05:15 - Procedures Procedures: Procedures ENDO EXCISION/DEST OF LESION OR TISSUE OF STOMACH (03/30/14) ENDOSC POLYPECTOMY OF LG INTEST (03/30/14) INSERTION OF INFUSION DEV INTO SUP VENA CAVA, PERC APPROACH (10/01/16)
[2019-06-28] MEDS ORDERED: LORazepam 1 MG TABLET PO PRN (17:26)
[2019-06-28] MEDS ORDERED: METOPROLOL SUCCINATE 25 MG TABLET PO ONE (17:28)
[2019-06-28] MEDS ORDERED: LISINOPRIL 5 MG TABLET PO ONE (17:29)
[2019-06-28] MEDS ORDERED: INSULIN ASPART 300 UNIT/3 ML PEN SUBQ SCH (21:00)
[2019-06-28] MEDS ORDERED: INSULIN GLARGINE 300 UNIT/3 ML PEN SUBQ SCH (21:00)
[2019-06-28] MEDS: AMITRIPTYLINE 25 MG TABLET PO SCH (21:12)
[2019-06-28] MEDS: DICYCLOMINE 10 MG CAPSULE PO SCH (21:13)
[2019-06-28] MEDS: ACETAMINOPHEN 325 MG TABLET PO PRN (21:13)
[2019-06-28 22:01] LABS: CALCIUM 7.4 mg/dL (8.5-10.3); CREATININE 1.1 mg/dL (0.4-1.0)
[2019-06-28] MEDS: SODIUM CHLORIDE 0.9% 1,000 ML IV SCH (22:10)
[2019-06-28] MEDS ORDERED: INSULIN REGULAR HUMAN 100 UNIT in SODIUM CHLORIDE 0.9% 100ML 99 ML IV ONE (22:14)
[2019-06-28] MEDS ORDERED: POTASSIUM CHLOR 10 MEQ/100 ML 10 MEQ/100 ML BAG IV ONE (22:29)
[2019-06-28] MEDS ORDERED: SODIUM CHLORIDE 0.9% 1,000 ML IV ONE (22:42)
[2019-06-29] MEDS: METOCLOPRAMIDE 10 MG/2 ML VIAL IVP PRN ×2 (00:02→12:51)
[2019-06-29 01:41] LABS: CALCIUM 7.8 mg/dL (8.5-10.3)
[2019-06-29] MEDS ORDERED: POTASSIUM CHLOR 10 MEQ/100 ML 10 MEQ/100 ML BAG IV ONE (01:51)
[2019-06-29 03:43] LABS: CALCIUM 7.7 mg/dL (8.5-10.3); CREATININE 1.2 mg/dL (0.4-1.0)
[2019-06-29] MEDS: D5.45NS W/20 MEQ KCL 1,000 ML IV SCH ×2 (04:11→16:00)
[2019-06-29 05:55] LABS: VBG PH 7.401 (7.31-7.41)
[2019-06-29 05:56] LABS: BASOPHILS # (AUTO) 0.1 10^3/uL (0.0-0.1); BASOPHILS % (AUTO) 0.7 %; EOSINOPHILS # (AUTO) 0.1 10^3/uL (0.0-0.7); EOSINOPHILS % (AUTO) 0.7 %; HGB - HEMOGLOBIN 11.3 g/dL (12.0-16.0); LYMPHOCYTES # (AUTO) 1.3 10^3/uL (1.5-3.5); LYMPHOCYTES % (AUTO) 17.8 %; MEAN CORPUSCULAR HEMOGLOBIN 32.9 pg (27.0-31.0); MEAN CORPUSCULAR HGB CONC 33.3 g/dL (32.0-36.0); MEAN CORPUSCULAR VOLUME 98.8 fL (81.0-99.0); MEAN PLATELET VOLUME 9.1 fL (7.9-10.8); MONOCYTES # (AUTO) 0.8 10^3/uL (0.0-1.0); MONOCYTES % (AUTO) 11.5 %; PLT - PLATELET COUNT 203 10^3/uL (130-450); RED BLOOD COUNT 3.43 10^6/uL (4.20-5.40); RED CELL DISTRIBUTION WIDTH 12.4 % (12.0-15.0); VBG BASE EXCESS -6.8 mmol/L (-2 - +2); VBG PCO2 27.3 mmHg (41-51); VBG PO2 142.7 mmHg (25-47); VBG TOTAL CO2 17.4 mmol/L (24-29); WHITE BLOOD COUNT 7.3 x10^3/uL (4.8-10.8)
[2019-06-29 06:05] LABS: CALCIUM 7.7 mg/dL (8.5-10.3); CREATININE 0.9 mg/dL (0.4-1.0)
[2019-06-29 06:09] LABS: MAGNESIUM 2.1 mg/dL (1.7-2.8); PHOSPHORUS 1.2 mg/dL (2.5-4.6)
[2019-06-29 06:21] LABS: VBG PH 7.401 (7.31-7.41)
[2019-06-29] MEDS ORDERED: POTASSIUM PHOSPHATE 21 MMOL in SODIUM CHLORIDE 0.9% 250 ML IV ONE ×2 (06:27→07:20)
[2019-06-29] MEDS ORDERED: CALCIUM GLUCONATE 1,000 MG in SODIUM CHLORIDE 0.9% 50 ML IV ONE (06:30)
[2019-06-29] MEDS: POTASSIUM CHLOR 10 MEQ/100 ML 10 MEQ/100 ML BAG IV SCH ×4 (06:35→10:15)
[2019-06-29] MEDS: SODIUM CHLORIDE FLUSH 0.9% 10 ML SYRINGE IVP SCH ×3 (06:39→17:10)
[2019-06-29] MEDS: LEVOTHYROXINE 25 MCG TABLET PO SCH (06:40)
[2019-06-29] MEDS: GABAPENTIN 100 MG CAPSULE PO SCH ×3 (06:40→21:17)
[2019-06-29] MEDS: LEVOTHYROXINE 125 MCG TABLET PO SCH (06:41)
[2019-06-29] MEDS: DICYCLOMINE 10 MG CAPSULE PO SCH ×4 (06:41→21:17)
[2019-06-29] MEDS ORDERED: INSULIN ASPART 300 UNIT/3 ML PEN SUBQ SCH (08:00)
[2019-06-29] MEDS ORDERED: POTASSIUM CHLOR 10 MEQ/100 ML 10 MEQ/100 ML BAG IV SCH (08:00)
[2019-06-29] MEDS: VENLAFAXINE ER 75 MG CAPSULE PO SCH (08:28)
[2019-06-29] MEDS: METOPROLOL SUCCINATE 50 MG TABLET PO SCH (08:28)
[2019-06-29] MEDS: LISINOPRIL 20 MG TABLET PO SCH (08:29)
--- NOTE | 2019-06-29 17:21 | PROVIDER PROGRESS NOTE ---
Assessment/Plan - Problem List (1) DKA (diabetic ketoacidoses) Qualifiers: Diabetes mellitus type: type 1 Diabetes mellitus complication detail: without coma Qualified Code(s): E10.10 - Type 1 diabetes mellitus with ketoacidosis without coma Assessment/Plan: Her glu went >400 and last night the iv Insulin drip had to be retarted and continues all da=y today. (2) Electrolyte and fluid disorder Assessment/Plan: Still needed ICU protocol replacement Follow electrolytes daily (3) Dehydration Assessment/Plan: Improved, continue peripheral iv fluids (4) ARIANA (acute kidney injury) Assessment/Plan: Resolved (5) URI (upper respiratory infection) Assessment/Plan: Stable, no c/o - Current Meds Current Meds: Current Medications Generic Name Dose Route Start Last Admin Trade Name Freq PRN Reason Stop Dose Admin Acetaminophen 650 mg 06/27/19 17:59 06/28/19 21:13 Tylenol PO 650 mg Q4HR PRN Administration Pain 1 to 4 Amitriptyline HCl 75 mg 06/28/19 21:00 06/28/19 21:12 Elavil PO 75 mg QPM ADALBERTO Administration Dicyclomine HCl 10 mg 06/28/19 21:00 06/29/19 16:06 Bentyl PO 10 mg ACHS ADALBERTO Administration Gabapentin 200 mg 06/28/19 22:00 06/29/19 14:05 Neurontin PO 200 mg TID ADALBERTO Administration Potassium Chloride/Dextrose/Sod Cl 1,000 mls @ 80 mls/hr 06/28/19 18:20 06/29/19 17:00 D5.45ns W/20 Meq Kcl IV 80 mls/hr .[id number] ADALBERTO Infusion Insulin Human Regular 100 unit 100 mls @ 5 mls/hr 06/28/19 22:14 06/29/19 17:00 / Sodium Chloride IV 06/29/19 18:13 4.5 unit/hr .Q20H ONE 4.5 mls/hr Titration Protocol 5 UNIT/HR Sodium Chloride 1,000 mls @ 100 mls/hr 06/28/19 22:00 06/29/19 09:29 Normal Saline 0.9% IV Infused .Q10H ADALBERTO Infusion Levothyroxine Sodium 250 mcg 06/29/19 07:00 06/29/19 06:41 Synthroid PO 250 mcg QDAC ADALBERTO Administration Levothyroxine Sodium 25 mcg 06/29/19 07:00 06/29/19 06:40 Synthroid PO 25 mcg QDAC ADALBERTO Administration Lisinopril 40 mg 06/29/19 09:00 06/29/19 08:29 Zestril PO 40 mg DAILY ADLABERTO Administration Metoclopramide HCl 5 mg 06/28/19 02:18 06/29/19 12:51 Reglan Inj IVP 5 mg Q6HR PRN Administration Nausea / Vomiting Metoprolol Succinate 50 mg 06/29/19 09:00 06/29/19 08:28 Toprol Xl PO 50 mg DAILY ADALBERTO Administration Ondansetron HCl 4 mg 06/27/19 17:59 06/28/19 16:44 Zofran Odt TL 4 mg Q6HR PRN Administration Nausea / Vomiting Sodium Chloride 10 ml 06/28/19 01:00 06/29/19 17:10 Normal Saline Flush 0.9% IVP 10 ml 0100,0900,1700 ADALBERTO Administration Venlafaxine HCl 150 mg 06/29/19 09:00 06/29/19 08:28 Effexor Er PO 150 mg DAILY ADALBERTO Administration - Lab Result Fish Bone Diagrams: 06/29/19 05:45 06/29/19 05:45 - Additional Planning My Orders: My Active Orders 06/28/19 17:26 LORazepam [Ativan] 1 mg PO QPM PRN 06/28/19 18:20 D5.45ns W/20 Meq KCl 1,000 ml IV 80 mls/hr 06/28/19 21:00 Amitriptyline [Elavil] 75 mg PO QPM Dicyclomine [Bentyl] 10 mg PO ACHS 06/28/19 22:00 Gabapentin [Neurontin] 200 mg PO TID 06/29/19 07:00 Levothyroxine [Synthroid] 25 mcg PO QDAC Levothyroxine [Synthroid] 250 mcg PO QDAC 06/29/19 09:00 Lisinopril [Zestril] 40 mg PO DAILY Metoprolol Succinate [Toprol Xl] 50 mg PO DAILY Venlafaxine ER [Effexor ER] 150 mg PO DAILY 06/29/19 Breakfast DIET [Carb-controlled Diet] [DIET] Subjective - Subjective Patient Reports: Feeling Better, Other (Has appetite, and no abd pain complaints) Objective Vital Signs: Vital Signs - 24 hr 06/28/19 06/28/19 06/28/19 17:58 19:00 20:00 Temperature 36.9 C Heart Rate [ 110 H 111 H 112 H Monitoring electrodes] Respiratory 20 25 H 22 Rate Blood Pressure [Left Brachial artery] Blood Pressure 166/70 H 146/54 H 136/64 H [Right Brachial artery] O2 Saturation 100 100 100 06/28/19 06/28/19 06/28/19 21:00 22:00 23:00 Temperature Heart Rate [ 114 H 126 H 112 H Monitoring electrodes] Respiratory 19 25 H 16 Rate Blood Pressure 167/74 H [Left Brachial artery] Blood Pressure 144/65 H 155/75 H [Right Brachial artery] O2 Saturation 100 100 99 06/29/19 06/29/19 06/29/19 00:00 01:00 02:00 Temperature 36.7 C Heart Rate [ 116 H 115 H 111 H Monitoring electrodes] Respiratory 26 H 22 23 Rate Blood Pressure 194/87 H 108/48 L 94/50 L [Left Brachial artery] Blood Pressure [Right Brachial artery] O2 Saturation 100 100 98 06/29/19 06/29/19 06/29/19 03:00 04:00 05:00 Temperature 36.7 C Heart Rate [ 105 H 100 103 H Monitoring electrodes] Respiratory 20 22 19 Rate Blood Pressure 124/54 L 103/53 L 100/58 L [Left Brachial artery] Blood Pressure [Right Brachial artery] O2 Saturation 99 97 98 06/29/19 06/29/19 06/29/19 06:00 07:00 08:00 Temperature Heart Rate [ 100 96 102 H Monitoring electrodes] Respiratory 18 21 18 Rate Blood Pressure 102/56 L 102/52 L 152/74 H [Left Brachial artery] Blood Pressure [Right Brachial artery] O2 Saturation 99 98 100 06/29/19 06/29/19 06/29/19 09:00 10:00 11:00 Temperature Heart Rate [ 97 105 H 100 Monitoring electrodes] Respiratory 18 17 14 Rate Blood Pressure 125/70 163/73 H [Left Brachial artery] Blood Pressure 141/60 H [Right Brachial artery] O2 Saturation 96 99 99 06/29/19 06/29/19 06/29/19 13:00 14:00 16:00 Temperature 36.8 C Heart Rate [ 106 H 101 H 103 H Monitoring electrodes] Respiratory 14 12 21 Rate Blood Pressure [Left Brachial artery] Blood Pressure 160/73 H 160/69 H 149/58 H [Right Brachial artery] O2 Saturation 96 97 97 06/29/19 17:00 Temperature Heart Rate [ 100 Monitoring electrodes] Respiratory 18 Rate Blood Pressure [Left Brachial artery] Blood Pressure 158/64 H [Right Brachial artery] O2 Saturation 97 Oxygen O2 Source Nasal cannula I&O (Last 24 Hrs): Intake and Output Totals x24h 06/27/19 06/28/19 06/29/19 23:59 23:59 23:59 Intake Total 3045.479 3297.633 3926.354 Output Total 0 2850 1300 Balance 9686.391 7033.633 2626.354 General: Alert, Oriented x3 HEENT: Mucous membr. moist/pink Neck: Supple Neuro: Alert, Non Focal Cardiovascular: Regular rate Respiratory: No respiratory distress Abdomen: Soft Extremities: No edema - Results Results: Laboratory Results WBC 7.3 x10^3/uL (4.8-10.8) 06/29/19 05:45 RBC 3.43 10^6/uL (4.20-5.40) L 06/29/19 05:45 Hgb 11.3 g/dL (12.0-16.0) L 06/29/19 05:45 Hct 33.9 % (37.0-47.0) L 06/29/19 05:45 MCV 98.8 fL (81.0-99.0) 06/29/19 05:45 MCH 32.9 pg (27.0-31.0) H 06/29/19 05:45 MCHC 33.3 g/dL (32.0-36.0) 06/29/19 05:45 RDW 12.4 % (12.0-15.0) 06/29/19 05:45 Plt Count 203 10^3/uL (130-450) 06/29/19 05:45 MPV 9.1 fL (7.9-10.8) 06/29/19 05:45 Neut # (Auto) 5.0 10^3/uL (1.5-6.6) 06/29/19 05:45 Lymph # (Auto) 1.3 10^3/uL (1.5-3.5) L 06/29/19 05:45 [place] # (Auto) 0.8 10^3/uL (0.0-1.0) 06/29/19 05:45 Eos # (Auto) 0.1 10^3/uL (0.0-0.7) 06/29/19 05:45 Baso # (Auto) 0.1 10^3/uL (0.0-0.1) 06/29/19 05:45 Absolute Nucleated RBC 0.00 x10^3/uL 06/29/19 05:45 Nucleated RBC % 0.0 /100WBC 06/29/19 05:45 VBG pH 7.401 (7.31-7.41) 06/29/19 05:45 VBG pCO2 27.3 mmHg (41-51) L 06/29/19 05:45 VBG pO2 142.7 mmHg (25-47) H 06/29/19 05:45 VBG HCO3 16.6 mmol/L (23-28) L 06/29/19 05:45 VBG Total CO2 17.4 mmol/L (24-29) L 06/29/19 05:45 VBG O2 Saturation 98.7 % (60-80) H 06/29/19 05:45 VBG Base Excess -6.8 mmol/L (-2 - +2) L 06/29/19 05:45 Ionized Calcium 1.08 mmol/L (1.15-1.33) L 06/29/19 05:45 Sodium 138 mmol/L (135-145) 06/29/19 05:45 Potassium 3.4 mmol/L (3.5-5.0) L 06/29/19 05:45 Chloride 109 mmol/L (101-111) 06/29/19 05:45 Carbon Dioxide 18 mmol/L (21-32) L 06/29/19 05:45 Anion Gap 11.0 (6-13) 06/29/19 05:45 BUN 19 mg/dL (6-20) 06/29/19 05:45 Creatinine 0.9 mg/dL (0.4-1.0) 06/29/19 05:45 Estimated GFR (MDRD) 69 (>89) L 06/29/19 05:45 Glucose 159 mg/dL (70-100) H 06/29/19 05:45 Glycated Hemoglobin 10.8 % (4.6-6.2) H 06/27/19 17:03 Estim Average Glucose 263 (70-100) H 06/27/19 17:03 Lactic Acid 1.6 mmol/L (0.5-2.2) 06/27/19 17:03 Calcium 7.7 mg/dL (8.5-10.3) L 06/29/19 05:45 Phosphorus 1.2 mg/dL (2.5-4.6) L 06/29/19 05:45 Magnesium 2.1 mg/dL (1.7-2.8) 06/29/19 05:45 Total Bilirubin 2.0 mg/dL (0.2-1.0) H 06/27/19 17:03 AST 16 IU/L (10-42) 06/27/19 17:03 ALT 18 IU/L (10-60) 06/27/19 17:03 Alkaline Phosphatase 154 IU/L (42-121) H 06/27/19 17:03 Total Protein 8.2 g/dL (6.7-8.2) 06/27/19 17:03 Albumin 2.6 g/dL (3.2-5.5) L 06/29/19 05:45 Globulin 4.6 g/dL (2.1-4.2) H 06/27/19 17:03 Albumin/Globulin Ratio 0.8 (1.0-2.2) L 06/27/19 17:03 Lipase 23 U/L (22-51) 06/27/19 17:03 Urine Color YELLOW 06/27/19 17:56 Urine Clarity CLEAR (CLEAR) 06/27/19 17:56 Urine pH 5.5 PH (5.0-7.5) 06/27/19 17:56 Ur Specific [place] >=1.030 (1.002-1.030) H 06/27/19 17:56 Urine Protein 100 mg/dL (NEGATIVE) H 06/27/19 17:56 Urine Glucose (UA) 500 mg/dL (NEGATIVE) H 06/27/19 17:56 Urine Ketones >=80 mg/dL (NEGATIVE) H 06/27/19 17:56 Urine Occult Blood MODERATE (NEGATIVE) H 06/27/19 17:56 Urine Nitrite NEGATIVE (NEGATIVE) 06/27/19 17:56 Urine Bilirubin NEGATIVE (NEGATIVE) 06/27/19 17:56 Urine Urobilinogen 0.2 (NORMAL) E.U./dL (NORMAL) 06/27/19 17:56 Ur Leukocyte Esterase NEGATIVE (NEGATIVE) 06/27/19 17:56 Urine RBC 6-10 /HPF (0-5) H 06/27/19 17:56 Urine WBC 0-3 /HPF (0-5) 06/27/19 17:56 Ur Squamous Epith Cells MANY Squamous (<= Few) H 06/27/19 17:56 Urine Bacteria Few /HPF (None Seen) 06/27/19 17:56 Ur Microscopic Review INDICATED 06/27/19 17:56 Urine Culture Comments NOT INDICATED 06/27/19 17:56 Urine HCG, Qual NEGATIVE 06/27/19 17:56 Nasal Screen MRSA (PCR) NEGATIVE (NEGATIVE) 06/27/19 21:05 Serum Ketones SMALL (NEGATIVE) H 06/28/19 05:15 - Procedures Procedures: Procedures ENDO EXCISION/DEST OF LESION OR TISSUE OF STOMACH (03/30/14) ENDOSC POLYPECTOMY OF LG INTEST (03/30/14) INSERTION OF INFUSION DEV INTO SUP VENA CAVA, PERC APPROACH (10/01/16)
[2019-06-29] MEDS: SODIUM CHLORIDE 0.9% 1,000 ML IV SCH (18:30)
[2019-06-29] MEDS ORDERED: INSULIN REGULAR HUMAN 100 UNIT in SODIUM CHLORIDE 0.9% 100ML 99 ML IV SCH (19:00)
[2019-06-29] MEDS: AMITRIPTYLINE 25 MG TABLET PO SCH (21:16)
[2019-06-30] MEDS: SODIUM CHLORIDE FLUSH 0.9% 10 ML SYRINGE IVP SCH ×3 (01:00→17:02)
[2019-06-30] MEDS: SODIUM CHLORIDE 0.9% 1,000 ML IV SCH (03:51)
[2019-06-30 05:17] LABS: BASOPHILS % (AUTO) 0.7 %; EOSINOPHILS # (AUTO) 0.1 10^3/uL (0.0-0.7); EOSINOPHILS % (AUTO) 2.2 %; HGB - HEMOGLOBIN 10.6 g/dL (12.0-16.0); LYMPHOCYTES # (AUTO) 1.4 10^3/uL (1.5-3.5); LYMPHOCYTES % (AUTO) 29.9 %; MEAN CORPUSCULAR HEMOGLOBIN 32.9 pg (27.0-31.0); MEAN CORPUSCULAR HGB CONC 32.8 g/dL (32.0-36.0); MEAN CORPUSCULAR VOLUME 100.3 fL (81.0-99.0); MEAN PLATELET VOLUME 9.3 fL (7.9-10.8); MONOCYTES # (AUTO) 0.4 10^3/uL (0.0-1.0); MONOCYTES % (AUTO) 9.5 %; NEUTROPHILS # (AUTO) 2.6 10^3/uL (1.5-6.6); NEUTROPHILS % (AUTO) 57.5 %; PLT - PLATELET COUNT 165 10^3/uL (130-450); RED BLOOD COUNT 3.22 10^6/uL (4.20-5.40); RED CELL DISTRIBUTION WIDTH 12.1 % (12.0-15.0); WHITE BLOOD COUNT 4.5 x10^3/uL (4.8-10.8)
[2019-06-30 05:21] LABS: VBG PCO2 43.8 mmHg (41-51); VBG PH 7.325 (7.31-7.41); VBG PO2 128.8 mmHg (25-47)
[2019-06-30 05:22] LABS: VBG BASE EXCESS -3.6 mmol/L (-2 - +2); VBG TOTAL CO2 23.7 mmol/L (24-29)
[2019-06-30 06:08] LABS: MAGNESIUM 1.8 mg/dL (1.7-2.8)
[2019-06-30 06:11] LABS: ALBUMIN 2.2 g/dL (3.2-5.5); CALCIUM 7.6 mg/dL (8.5-10.3); CREATININE 0.7 mg/dL (0.4-1.0)
[2019-06-30] MEDS: LEVOTHYROXINE 125 MCG TABLET PO SCH (06:50)
[2019-06-30] MEDS: LEVOTHYROXINE 25 MCG TABLET PO SCH (06:51)
[2019-06-30] MEDS: GABAPENTIN 100 MG CAPSULE PO SCH ×2 (06:51→14:54)
[2019-06-30] MEDS ORDERED: POTASSIUM CHLORIDE 20 MEQ TABLET PO SCH (07:10)
[2019-06-30] MEDS: DICYCLOMINE 10 MG CAPSULE PO SCH ×3 (08:15→16:11)
[2019-06-30] MEDS: NEUTRA-PHOS 250 MG TABLET PO SCH ×2 (08:15→09:52)
[2019-06-30] MEDS: METOPROLOL SUCCINATE 50 MG TABLET PO SCH (08:15)
[2019-06-30] MEDS: LISINOPRIL 20 MG TABLET PO SCH (08:15)
[2019-06-30] MEDS: VENLAFAXINE ER 75 MG CAPSULE PO SCH (08:15)
[2019-06-30] MEDS ORDERED: INSULIN GLARGINE 300 UNIT/3 ML PEN SUBQ SCH (09:00)
--- NOTE | 2019-06-30 09:23 | PHARMACY PROGRESS NOTE ---
- Best Possible Medication History Admit Date and Time: 06/27/19 1273 Processed by: Pharmacy Medication History completed: Yes Patient Interview: Completed
[2019-06-30 09:32] LABS: FOLATE 11.16 ng/mL (5.90 - >24.8)
[2019-06-30] MEDS: INSULIN ASPART 300 UNIT/3 ML PEN SUBQ SCH ×4 (11:55→17:02)
[2019-06-30 16:10] VITALS: BP 149/74
--- NOTE | 2019-06-30 16:24 | Discharge Plan ---
Discharge Plan Problem Reviewed?: Yes Disposition: Home, Self Care Condition: Stable Prescriptions: Dicyclomine [Bentyl] 10 mg PO ACHS PRN #40 capsule PRN Reason: Heartburn Diet: Diabetic Activity Restrictions: Activity as Tolerated Shower Restrictions: No Health Concerns: You were here with DKA, which was corrected. You have very brittle diabetes with wide swings in blood sugars. Plan of Treatment: Resume your Diabetic medications and diet. Stay well hydrated and temporarily stop your Spironolactone and Lasix, until OKd to resume by your Provider. Resume all your other pre-hospital medications. Care Goals: Stabilization is the goal. Assessment: The patient is agreeable with the plan. No Smoking: If you smoke, Please STOP! Call for help. Follow-up with: Amisha Staton DO [Primary Care Provider] -
--- NOTE | 2019-06-30 16:24 | DISCHARGE SUMMARY ---
Discharge Summary Admit Date: 06/27/19 Discharge Date: 06/30/19 Discharging Provider: Dr Lexie Mahoney Primary Care Provider: Dr Amisha Staton Condition at Discharge: Stable Discharge Disposition: 01 Home, Self Care - DIAGNOSES Admission Diagnoses: 1) DKA 2) Electrolyte and fluid disorder 3) ARIANA 4) Opioid use disorder Discharge Diagnoses with Status of Each Condition: See below - HPI History of Present Illness: From the admission H&P of Dr Nia Upton: Ms. Balderas is well-known to our service. She has had multiple admissions for DKA. So more due to noncompliance resulting in DKA, some are because of concurrent illness such as gastroenteritis or cold, and her last admission was March 26, 2019. At that time she had subcutaneous abscess along her jawline into her neck resulting in incision and debridement and DKA. Prior to that she was admitted February 17, 2019, again for DKA with noncompliance, and soft tissue infection. Of note, this patient will get very tearful, and we usually request opiates to control her abdominal discomfort. When I examined her in January 2019, her abdominal exam was benign. It was soft, normal bowel sounds. I declined giving her opiates with that admission. She was seen in the emergency room June 06 with a bad chest cold. Glucose at that time was relatively well-controlled for her, without ketosis and she was sent home with symptomatic management and antibiotics. She said that she never really got over it. Has continued to have Chest congestion, sputum production. She does not have any hemoptysis. She denies fever, chills. No diarrhea. Over the last couple of days she starting to feel worse. Weaker. Today she has been frankly panting. Whenever she does this she knows that she is in DKA and brought herself to the emergency room. She was evaluated by the emergency room physician where her temperature was 37, tachycardic from 14-08 17. She was tachypneic to 31-36. Blood pressure 173/65. 100% on room air. She was dehydrated on exam, sodium was 131, potassium 6, BUN 26, creatinine 1.5. Random glucose 480. Anion gap 27. Lactic acid 1.6. She is a small amount of serum ketones. Urinalysis has proteinuria, ketonuria, but no real infection. Venous blood gas is 7.1, PCO2 22, bicarb 7.4, and base excess 19.8. She is now admitted as diabetic ketoacidosis. Dehydration. Acute kidney injury. - HOSPITAL COURSE Hospital Course: 1) DKA He was managed with a standard DKA protocol in the ICU, insulin drip, IV saline. Her obtundation improved by the next day but nausea and abdominal pain were better after 2 days. She was transitioned to carb controlled diet, Lantus insulin and regular sliding scale insulin coverage. 2) Dehydration She was rehydrated with crystalloids. Her usual Lasix and Spironolactone were on hold during this hospitalization. 3) ARIANA Her admission BUN/creatinine improved from 26/1.5 to 13/0.7 at the time of discharge. 4) Electrolyte and fluid disorder Her low sodium, low potassium, low magnesium, low phosphorous and uremia, all improved with management as above 5) Brittle Diabetes She is aware of her swings in serum glucose from being hypoglycemic to hy perglycemic within the course of a few hours 6) Chronic systolic heart failure Her last echo done several years ago showed an EF of 45%. There was no volume overload while here. Her spironolactone and Lasix were on hold while here, advised to be resumed after discharge 7) Opioid use disorder She initially requested narcotics for her abdominal pain every 2 hours. The dose was purposefully stretched out as she could tolerate it and she had no complaints of abdominal pain in the final day 8) Hypothyroidism She was kept on her usual home dose of thyroid replacement 9) Peripheral neuropathy She was on her home meds for this 10) Anxiety and Depression She was on her home meds for this - ALLERGIES Allergies/Adverse Reactions: Allergies Allergy/AdvReac Type Severity Reaction Status Date / Time sulfamethoxazole Allergy Intermediate rash/ Verified 06/27/19 16:47 [From Bactrim] adhesive Allergy Rash Verified 06/27/19 16:47 amoxicillin [Amoxicillin] Allergy unknown Verified 06/27/19 16:47 oxycodone [Oxycodone] AdvReac Intermediate hallucinate, Verified 06/27/19 16:47 vomit promethazine HCl * AdvReac Mild Nausea Verified 06/27/19 16:47 [From Phenergan] - MEDICATIONS Home Medications: Ambulatory Orders Medication Instructions Recorded Confirmed Insulin Glargine,Hum.rec.anlog 28 units SUBQ DAILY 09/05/13 06/28/19 [Lantus Solostar] Amitriptyline [Elavil] 75 mg PO QPM 07/03/14 06/28/19 Levothyroxine Sodium 275 mcg PO QDAC 10/08/17 06/28/19 Atorvastatin Calcium [Lipitor] 80 mg PO QPM 01/20/18 06/28/19 Venlafaxine HCl [Venlafaxine HCl 150 mg PO DAILY 01/20/18 06/28/19 ER] Famotidine 20 mg PO BID 09/04/18 06/28/19 Gabapentin 200 mg PO TID #60 capsule 09/06/18 06/28/19 Insulin Aspart [NovoLOG] 15 - 30 units SUBQ TIDWM 03/26/19 06/28/19 Insulin Glargine [Lantus Solostar] 32 unit SQ QPM 03/26/19 06/28/19 LORazepam [Ativan] 1 mg PO QPM PRN 03/26/19 06/28/19 Lisinopril 40 mg PO DAILY 03/26/19 06/28/19 Metoprolol Succinate 50 mg PO DAILY 03/26/19 06/28/19 Dicyclomine [Bentyl] 10 mg PO ACHS PRN #40 capsule 06/30/19 Insulin Aspart [Novolog] 1 - 9 units SQ DAILY #1 pkt 06/30/19 06/28/19 - PHYSICAL EXAM AT DISCHARGE General Appearance: positive: No acute distress, Alert Eyes Bilateral: positive: Normal inspection, PERRL ENT: positive: ENT inspection nml, No signs of dehydration Neck: positive: Nml inspection, No JVD Respiratory: positive: No respiratory distress, Breath sounds nml Cardiovascular: positive: Regular rate & rhythm, No murmur Abdomen: positive: Non-tender, No distention Skin: positive: Other (PAle) Extremities: positive: Non-tender, No pedal edema Neurologic/Psychiatric: positive: Oriented x3, Other (Grossly intact) - LABS Result Diagrams: 06/30/19 04:55 06/30/19 04:05 - DIAGNOSTIC IMAGING Diagnostic Imaging Results: Final report reviewed - FOLLOW UP Follow Up: See [facility] or PCP in 1-2 weeks in hospital follow up.
[2019-06-30] MEDS ORDERED: ATORVASTATIN 40 MG TABLET PO SCH (21:00)
== END 2019-06-30 18:00 | disposition home or self-care (01) | DRG 638 ==
LOC: EDUNIT# → ED 16:06 → ICU 17:59
PROVIDERS: ADMIT Specialist; ATTEND Internal Medicine
PROC: 02HV33Z Insertion of Infusion Device into Superior Vena Cava, Percutaneous Approach (ICD-10-PCS; principal; 2019-06-27)
DX: E10.10 Type 1 diabetes mellitus with ketoacidosis without coma (principal); R10.9 Unspecified abdominal pain; E87.5 Hyperkalemia; N17.9 Acute kidney failure, unspecified; I50.9 Heart failure, unspecified; E87.1 Hypo-osmolality and hyponatremia; I50.22 Chronic systolic (congestive) heart failure; I11.0 Hypertensive heart disease with heart failure; E10.42 Type 1 diabetes mellitus with diabetic polyneuropathy; E86.0 Dehydration; E87.6 Hypokalemia; E87.8 Other disorders of electrolyte and fluid balance, not elsewhere classified; E89.0 Postprocedural hypothyroidism; E78.00 Pure hypercholesterolemia, unspecified; E83.42 Hypomagnesemia; J06.9 Acute upper respiratory infection, unspecified; E83.39 Other disorders of phosphorus metabolism; K21.9 Gastro-esophageal reflux disease without esophagitis; F43.10 Post-traumatic stress disorder, unspecified; F41.0 Panic disorder [episodic paroxysmal anxiety]; F31.9 Bipolar disorder, unspecified; F40.240 Claustrophobia; M10.9 Gout, unspecified; G89.29 Other chronic pain; M54.9 Dorsalgia, unspecified; R35.0 Frequency of micturition; R39.15 Urgency of urination; H53.8 Other visual disturbances; Z73.6 Limitation of activities due to disability; Z56.0 Unemployment, unspecified; Z79.4 Long term (current) use of insulin; Z79.899 Other long term (current) drug therapy; Z95.0 Presence of cardiac pacemaker; Z86.711 Personal history of pulmonary embolism; Z87.01 Personal history of pneumonia (recurrent); Z72.89 Other problems related to lifestyle
CPT/HCPCS: 36415; 71045; 80048; 80053; 81001; 81025; 82009; 82040; 82330; 82607; 82746; 82803; 83036; 83605; 83690; 83735; 84100; 84132; 85025; 87150; 96374; 99283; 99285; A9270; J1815; J2765; J7040; Q0162; 81003; 82947; 87086